=== PATIENT | male | born 1955 | race Caucasian/White ===

== ENCOUNTER 2018-02-03 16:20 | Inpatient (IN) | payer OTHER ==
--- NOTE | 2018-02-03 17:03 | ER ---
Nurse's Notes [facility] Name: Raphael oHyos Age: 62 yrs Sex: Male : 1955 Arrival Date: 02/03/2018 Time: 16:29 Bed 19 Private MD: Diagnosis: Pain in left knee;Weakness;Elevated white blood cell count;Dementia in other diseases classified elsewhere;Fall due to bumping against object;Repeated falls;Hypomagnesemia;Unspecified kidney failure Presentation: 02/03 16:41 Presenting complaint: EMS states: Per EMS called for chronic knee pain. When ask Pt why kb1 he is here states "because they asked me if I wanted to go to the hospital and I said yes" Pt states workers at his house called EMS. Transition of care: patient was not received from another setting of care. Onset of symptoms was February 03, 2018. Care prior to arrival: Glucose check: 150. 16:41 Method Of Arrival: EMS [facility] 16:41 Acuity: DANIELA 3 kb1 Triage Assessment: 16:44 General: Appears distressed, unkempt, Behavior is restless. Pain: Complains of pain in kb1 bilateral knees, states is chronic. Neuro: Level of Consciousness is awake, alert, obeys commands, Oriented to person, place, time, situation. Cardiovascular: Patient's skin is warm and dry. Respiratory: Airway is patent Respiratory effort is even, unlabored, Respiratory pattern is regular, symmetrical. GI: Abdomen is round. : No signs and/or symptoms were reported regarding the genitourinary system. Historical: - Allergies: 16:44 No Known Allergies; [facility] - Home Meds: 16:44 None [Active]; 1 - PMHx: 16:44 Hypertension; TIA; [facility] - PSHx: 16:44 None; kb1 - Immunization history:: Pneumococcal vaccine is not up to date, Flu vaccine is not up to date. - Social history:: Smoking status: Patient uses tobacco products, smokes one-half pack cigarettes per day. Screenin:47 Abuse screen: Denies threats or abuse. Nutritional screening: No deficits noted. kb1 Tuberculosis screening: No symptoms or risk factors identified. Fall Risk Fall in past 12 months (25 points). Assessment: 16:47 Reassessment: No changes from previously documented assessment. see triage assessment. kb1 16:55 Reassessment: Per Sabas POWER Pt refusing X-Rays, blood work. Pt does not want any test reilly ran. 17:10 Reassessment: Charge nurse Gabriella attempting to find transportation for Pt. Pt denies reilly having any family or friends that can pick him up. 18:30 Reassessment: Attempted to place Pt in wheelchair to D/C home. Pt unable to stand on kb1 own, became weak, assisted to sit on floor. Pt unable to stand back up on own. Assisted by four staff members to sit in wheelchair. Pt insist that he can go home and get self into house. Discussed condition with charge nurse. 18:40 Reassessment: Pt sitting in wheelchair in room, NAD, Gabriella charge nurse attempting to [facility] find transportation. 19:00 Reassessment: after multiple attempts to find transportation home, Dr. Rick fox1 notified of Pt condition and situation. Will admit to hospital. 20:19 Reassessment: Sitting in wheelchair, NAD. kb 21:18 Reassessment: Patient appears in no apparent distress at this time. Sitting in [facility] wheelchair. 22:24 Reassessment: Patient appears in no apparent distress at this time. Patient and/or kb1 family updated on plan of care and expected duration. Pain level reassessed. Patient is alert, oriented x 3, equal unlabored respirations, skin warm/dry/pink. Assisted Pt back to bed. 23:12 Reassessment: Patient appears in no apparent distress at this time. Patient and/or kb1 family updated on plan of care and expected duration. Pain level reassessed. resting comfortably. 02/04 00:30 Reassessment: Patient appears in no apparent distress at this time. Patient and/or kb1 family updated on plan of care and expected duration. Pain level reassessed. Patient is alert, oriented x 3, equal unlabored respirations, skin warm/dry/pink. 02:12 Reassessment: Awaiting CT results prior to transportation to floor per Dr. Cabrera. kb1 Vital Signs: 02/03 16:44 BP 146 / 80; Pulse 113; Resp 18; Temp 98.9; Pulse Ox 97% ; Weight 100.24 kg; Height 5 kb1 ft. 10 in. (177.80 cm); Pain 8/10; 20:38 BP 98 / 55; Pulse 98; Resp 20; Pulse Ox 97% ; kb1 21:19 BP 103 / 87; Pulse 89; Resp 22; Pulse Ox 97% ; kb1 22:24 BP 117 / 79; Pulse 81; Resp 20; Pulse Ox 97% ; kb1 23:12 BP 119 / 70; Pulse 80; Resp 18; Pulse Ox 98% ; kb1 02/04 02:47 BP 120 / 76; Pulse 84; Resp 20; Pulse Ox 96% ; kb1 02/03 16:44 Body Mass Index 31.71 (100.24 kg, 177.80 cm) kb1 ED Course: 02/03 16:29 Patient arrived in ED. ss 16:32 Sabas Burris, JANNET is PHCP. pm1 16:32 Oc Celeste MD is Attending Physician. pm1 16:40 Mildred Ruvalcaba, RADHAMES is Primary Nurse. kb1 16:43 Triage completed. kb1 16:44 Arm band placed on left wrist. kb1 16:47 Patient has correct armband on for positive identification. Placed in gown. Bed in low kb1 position. Call light in reach. Side rails up X2. Pulse ox on. NIBP on. 16:47 No provider procedures requiring assistance completed. kb1 22:48 Attending Physician role handed off by Oc Celeste MD federico 22:48 Ruiz Cabrera MD is Attending Physician. federico 22:49 Fish Carey MD is Hospitalizing Provider. federico 23:13 Inserted saline lock: 20 gauge in right forearm, using aseptic technique. Blood kb1 collected. 02/04 00:23 X-ray completed. Portable x-ray completed in exam room. Patient tolerated procedure kw well. 00:59 First set of blood cultures drawn by me, Second set of blood cultures drawn by me. kb1 Wang cath inserted, using sterile technique, 16 Fr., by me, balloon inflated, to gravity drainage, urine specimen collected. 01:53 Patient admitted, IV remains in place. kb1 02:14 EKG done, by ED staff, reviewed by Ruiz Cabrera MD. kb1 Administered Medications: 00:56 Not Given (Duplicate Order): NS 0.9% 1000 ml IV at 125 ml/hr continuous kb1 00:56 Drug: NS 0.9% 1000 ml Route: IV; Rate: 1 bolus; Site: right forearm; kb1 01:28 Follow up: IV Status: Completed infusion kb1 01:00 Drug: Cefepime 2 grams Route: IVPB; Rate: 200 ml/hr; Infused Over: 30 mins; Site: right kb1 forearm; 01:52 Follow up: IV Status: Completed infusion kb1 01:51 Drug: Magnesium Sulfate 1 grams Route: IVPB; Infused Over: 1 hrs; Site: right forearm; kb1 02:45 Follow up: IV Status: Completed infusion 1 01:52 Drug: NS 0.9% 1000 ml Route: IV; Rate: 125 ml/hr; Site: right forearm; kb1 01:52 Drug: vancoMYCIN 1 grams Route: IVPB; Infused Over: 2 hrs; Site: right forearm; [facility] Outcome: 02/03 17:02 Discharge ordered by . pm1 22:50 Decision to Hospitalize by Provider. federico 02/04 01:50 Admitted to Tele accompanied by tech, via stretcher, room 229, Report called to reilly Vee RN 01:50 Condition: stable [facility] 01:50 Instructed on the need for admit. 03:23 Patient left the ED. aa1 Signatures: Patricia Hearn RN RN aa1 Ruiz Cabrera MD MD cha Smirch, Shelby, RN RN ss Whitley, Kimberlee kw Marinas, Patrick, JANNET MANAGER GENERAL pm1 Mildred Ruvalcaba RN RN 1
--- NOTE | 2018-02-03 17:03 | EDPHYS ---
Physician Documentation [facility] Name: Raphael Hoyos Age: 62 yrs Sex: Male : 1955 Arrival Date: 02/03/2018 Time: 16:29 Bed 19 Private MD: ED Physician Ruiz Cabrera HPI: 02/03 17:00 This 62 yrs old Male presents to ER via EMS with complaints of Bilateral Knee pm1 Pain. 17:00 The patient presents with pain, that is chronic. The complaints affect the right and pm1 left knee. Context: The problem was sustained at home, resulted from an unknown cause, Uses electric scooter. Onset: The symptoms/episode began/occurred Multiple years ago. Modifying factors: The symptoms are alleviated by OTC meds, tylenol. the symptoms are aggravated by nothing. Associated signs and symptoms: Pertinent negatives calf tenderness, fever, nausea, numbness, swelling, tingling, vomiting. Treatment prior to arrival includes: no previous treatment. Severity of symptoms: in the emergency department the symptoms are unchanged. The patient has experienced similar episodes in the past, chronically. The patient has not recently seen a physician. Patient was brought to there ER by EMS for complaint of chronic bilateral knee pain. Historical: - Allergies: 16:44 No Known Allergies; kb1 - Home Meds: 16:44 None [Active]; kb1 - PMHx: 16:44 Hypertension; TIA; kb1 - PSHx: 16:44 None; kb1 - Immunization history:: Pneumococcal vaccine is not up to date, Flu vaccine is not up to date. - Social history:: Smoking status: Patient uses tobacco products, smokes one-half pack cigarettes per day. ROS: 17:00 Constitutional: Negative for fever, chills, and weight loss, Eyes: Negative for injury, pm1 pain, redness, and discharge, ENT: Negative for injury, pain, and discharge, Neck: Negative for injury, pain, and swelling, Cardiovascular: Negative for chest pain, palpitations, and edema, Respiratory: Negative for shortness of breath, cough, wheezing, and pleuritic chest pain, Abdomen/GI: Negative for abdominal pain, nausea, vomiting, diarrhea, and constipation, Back: Negative for injury and pain, : Negative for injury, bleeding, discharge, and swelling. 17:00 Skin: Negative for injury, rash, and discoloration, Neuro: Negative for headache, weakness, numbness, tingling, and seizure. 17:00 MS/extremity: Positive for pain, of the right and left knee. Exam: 17:00 Head/Face: Normocephalic, atraumatic. Neck: Trachea midline, no thyromegaly or masses pm1 palpated, and no cervical lymphadenopathy. Supple, full range of motion without nuchal rigidity, or vertebral point tenderness. No Meningismus. Chest/axilla: Normal chest wall appearance and motion. Nontender with no deformity. No lesions are appreciated. Cardiovascular: Regular rate and rhythm with a normal S1 and S2. No gallops, murmurs, or rubs. Normal PMI, no JVD. No pulse deficits. Respiratory: Lungs have equal breath sounds bilaterally, clear to auscultation and percussion. No rales, rhonchi or wheezes noted. No increased work of breathing, no retractions or nasal flaring. Abdomen/GI: Soft, non-tender, with normal bowel sounds. No distension or tympany. No guarding or rebound. No evidence of tenderness throughout. Back: No spinal tenderness. No costovertebral tenderness. Full range of motion. Skin: Warm, dry with normal turgor. Normal color with no rashes, no lesions, and no evidence of cellulitis. 17:00 Constitutional: The patient appears in no acute distress, alert, awake, comfortable, non-diaphoretic, non-toxic, well developed, well hydrated, unkempt. 17:00 Musculoskeletal/extremity: Extremities: grossly normal except: noted in the right knee: pain, tenderness, noted in the left knee: pain, tenderness, Circulation is intact in all extremities. Pulses: noted to be 2+ in the right dorsalis pedis artery and left dorsalis pedis artery, Calf tenderness, is absent, bilaterally, Sensation intact. Vital Signs: 16:44 BP 146 / 80; Pulse 113; Resp 18; Temp 98.9; Pulse Ox 97% ; Weight 100.24 kg; Height 5 kb1 ft. 10 in. (177.80 cm); Pain 8/10; 20:38 BP 98 / 55; Pulse 98; Resp 20; Pulse Ox 97% ; kb1 21:19 BP 103 / 87; Pulse 89; Resp 22; Pulse Ox 97% ; kb1 22:24 BP 117 / 79; Pulse 81; Resp 20; Pulse Ox 97% ; [facility] 23:12 BP 119 / 70; Pulse 80; Resp 18; Pulse Ox 98% ; [facility] 02/04 02:47 BP 120 / 76; Pulse 84; Resp 20; Pulse Ox 96% ; [facility] 02/03 16:44 Body Mass Index 31.71 (100.24 kg, 177.80 cm) [facility] MDM: 02/03 16:52 Patient medically screened. pm1 17:00 Data reviewed: vital signs. Data interpreted: Pulse oximetry: on room air is 97 %. pm1 Interpretation: normal. Counseling: I had a detailed discussion with the patient and/or guardian regarding: the historical points, exam findings, and any diagnostic results supporting the discharge/admit diagnosis, the need for outpatient follow up, to return to the emergency department if symptoms worsen or persist or if there are any questions or concerns that arise at home. 17:00 Refusal of service: The patient/guardian displays adequate decision making capability pm1 and despite a detailed discussion of alternatives, benefits, risks, and consequences refuses: all X-rays, pain medications stronger that over the counter medications. Patient just wants to take Tylenol at home. Patient does not want X-rays. He just wants to go home. 02/03 22:48 Order name: CBC with Diff [facility] 02/03 22:48 Order name: Comprehensive Metabolic Panel [facility] 02/03 22:49 Order name: CBC with Automated Diff; Complete Time: 01:27 EDND 02/03 22:49 Order name: Comprehensive Metabolic Panel; Complete Time: 23:42 EDND 02/03 23:45 Order name: Basic Metabolic Panel 02/03 23:45 Order name: BNP [facility] 02/03 23:45 Order name: Ckmb [facility] 02/03 23:45 Order name: CPK [facility] 02/03 23:45 Order name: LFT's 02/03 23:45 Order name: Magnesium [facility] 02/03 23:45 Order name: PT-INR [facility] 02/03 23:45 Order name: Ptt, Activated [facility] 02/03 23:45 Order name: Troponin (emerg Dept Use Only) 02/03 23:45 Order name: Lipase 02/03 23:45 Order name: Blood Culture Adult (2) [facility] 02/03 23:45 Order name: Procalcitonin [facility] 02/03 23:45 Order name: Lactate [facility] 02/03 23:45 Order name: Urine Culture [facility] 02/04 00:36 Order name: Protime (+INR); Complete Time: 01: [facility] 02/04 00:36 Order name: PTT, Activated Partial Thromb; Complete Time: 01: [facility] 02/04 00:47 Order name: Manual Differential; Complete Time: 01: [facility] 02/04 01:11 Order name: Lactate; Complete Time: : [facility] 02/04 01:13 Order name: Troponin (Emerg Dept Use Only); Complete Time: : [facility] 02/04 01:15 Order name: Lipase; Complete Time: : [facility] 02/04 01:19 Order name: Creatine Phosphokinase; Complete Time: : [facility] 02/04 01:19 Order name: CKMB Creatine Kinase MB; Complete Time: : [facility] 02/04 01:19 Order name: Magnesium; Complete Time: : [facility] 02/04 01:19 Order name: BNP B-Type Natriuretic Peptide; Complete Time: : [facility] 02/04 01:49 Order name: Procalcitonin [facility] 02/04 01:52 Order name: Urine Dipstick--Ancillary (enter results) [facility] 02/03 22:54 Order name: Social Service Consult [facility] 02/03 23:45 Order name: XRAY Chest (1 view) [facility] 02/03 23:45 Order name: EKG; Complete Time: 00:27 [facility] 02/03 23:45 Order name: Cardiac monitoring; Complete Time: 02:13 [facility] 02/03 23:45 Order name: EKG - Nurse/Tech; Complete Time: 02:13 [facility] 02/03 23:45 Order name: IV Saline Lock; Complete Time: 00:57 [facility] 02/03 23:45 Order name: Labs collected and sent; Complete Time: 00:57 [facility] 02/03 23:45 Order name: O2 Per Protocol; Complete Time: 00:57 [facility] 02/03 23:45 Order name: O2 Sat Monitoring; Complete Time: 00:57 [facility] 02/03 23:45 Order name: Urine Dipstick-Ancillary (obtain specimen); Complete Time: 02:46 [facility] 02/03 23:45 Order name: Wang; Complete Time: 00:57 [facility] 02/03 23:45 Order name: CT Traumagram (Head C Spine CAP wo con) [facility] 02/04 01:59 Order name: Urine Dipstick-Ancillary EDMS Administered Medications: 02/04 00:56 Not Given (Duplicate Order): NS 0.9% 1000 ml IV at 125 ml/hr continuous kb1 00:56 Drug: NS 0.9% 1000 ml Route: IV; Rate: 1 bolus; Site: right forearm; kb1 01:28 Follow up: IV Status: Completed infusion kb1 01:00 Drug: Cefepime 2 grams Route: IVPB; Rate: 200 ml/hr; Infused Over: 30 mins; Site: right kb1 forearm; 01:52 Follow up: IV Status: Completed infusion kb1 01:51 Drug: Magnesium Sulfate 1 grams Route: IVPB; Infused Over: 1 hrs; Site: right forearm; kb1 02:45 Follow up: IV Status: Completed infusion kb1 01:52 Drug: NS 0.9% 1000 ml Route: IV; Rate: 125 ml/hr; Site: right forearm; kb1 01:52 Drug: vancoMYCIN 1 grams Route: IVPB; Infused Over: 2 hrs; Site: right forearm; kb1 Disposition: 09:10 Co-signature as Attending Physician, Ruiz Cabrera MD I agree with the assessment and [facility] plan of care. Disposition: 02/03/18 22:50 Hospitalization ordered by Fish Carey for Observation. Preliminary diagnosis are Pain in left knee, Weakness, Elevated white blood cell count, Dementia in other diseases classified elsewhere, Fall due to bumping against object, Repeated falls, Hypomagnesemia, Unspecified kidney failure. - Bed requested for Telemetry/MedSurg (observation). - Status is Observation. aa1 - Condition is Stable. - Problem is new. - Symptoms have improved. UTI on Admission? No Signatures: Dispatcher [employer] EDMS Flori Sheehan RN RN mw Kern, Alissa, RN RN aa1 Ruiz Cabrera MD MD cha Marinas, Patrick, ADMINISTRATIVE TECHNICIAN ADMINISTRATIVE TECHNICIAN pm1 Mildred Ruvalcaba RN RN kb1
[2018-02-03 23:17] LABS: Absolute Lymphocytes (CBC) 1.3 K/uL (0.7-4.9); Absolute Monocytes 1.9 K/uL (0.1-1.3); Absolute Neutrophil 23.8 K/uL (1.8-8.0); Basophils % 0.6 % (0-1.3); Hematocrit 35.3 % (39.6-49.0); Lymphocytes % 4.6 % (15.3-44.8); MCH 29.4 pg (27.0-35.0); MCV 86.8 fL (80-100); MPV 6.8 fL (7.6-11.3); Monocytes % 6.9 % (3.3-12.3); RBC Red Blood Cell Count 4.07 M/uL (4.33-5.43)
[2018-02-03 23:27] LABS: Potassium 3.9 mEq/L (3.6-5.0)
[2018-02-03 23:30] LABS: Albumin 3.8 g/dL (3.2-5.5); Bilirubin Total 1.8 mg/dL (0.3-1.2); Protein, Total 8.2 g/dL (6.0-8.3)
[2018-02-04] MEDS ORDERED: ACETAMINOPHEN 500 MG TAB PO PRN (00:06)
[2018-02-04] MEDS ORDERED: ONDANSETRON 4 MG/2 ML VIAL IV PRN (00:06)
[2018-02-04] MEDS ORDERED: VANCOMYCIN/NS 1 gm 1 GM/250 ML BAG ONE (00:09)
[2018-02-04] MEDS ORDERED: NA CHLORIDE 0.9% 100 ML IV ONE (00:09)
[2018-02-04] MEDS ORDERED: NA CHLORIDE 0.9% 1,000 ML ONE ×2 (00:09→01:30)
[2018-02-04] MEDS ORDERED: CEFEPIME 2 GM VIAL ONE (00:09)
[2018-02-04 00:36] LABS: Protime INR 1.27
[2018-02-04 00:46] LABS: Blood Morphology Comment NOT SEEN (NOT SEEN); Platelet Estimate ADEQ
[2018-02-04] MEDS: NA CHLORIDE 0.9% 1,000 ML IV SCH ×3 (01:00→20:27)
[2018-02-04 01:18] LABS: CKMB Creatine Kinase MB 2.2 ng/ml (0.3-4.0); Magnesium 1.5 mg/dL (1.8-2.5)
--- NOTE | 2018-02-04 01:28 | P.HP ---
Certification for Inpatient Patient admitted to: Inpatient With expected LOS: >2 Midnights Patient will require the following post-hospital care: None Practitioner: I am a practitioner with admitting privileges, knowledge of patient current condition, hospital course, and medical plan of care. Services: Services provided to patient in accordance with Admission requirements found in Title 42 Section 412.3 of the Code of Federal Regulations Patient History Date of Service: 02/03/18 Reason for admission: Altered mental status/severe leukocytosis/acute kidney injury History of Present Illness: Patient is a 62-year-old gentleman who was brought into the hospital after EMS was called by his office machine servicer. Patient has not been acting like himself. His ended up in a hospital where she is apparently not do weaned well. Patient has a office machine servicer taking care of him. It is initially documented that he came into the hospital because of bilateral knee pain. EMS brought him into the emergency room and initially he was going to be discharged. However, during the course of his hospital stay he became lethargic and confused. At that time lab workup and diagnostic studies were performed. His initial white count came back at 27,000. He was found have acute kidney injury. Chest x-ray and CT scan are pending. Patient is lethargic and not really answering any of my questions. As long as a CT scan does not show any worrisome findings he should be admitted to the hospital for inpatient workup. Allergies No Known Allergies Allergy (Unverified 02/25/17 22:17) - Past Medical/Surgical History Past Medical History: Unable to obtain Past Surgical History: Unable to obtain - Family History Father Family History: Reviewed- Non-Contributory - Social History Smoking Status: Unknown if ever smoked Alcohol use: No CD- Drugs: No Review of Systems is unable to be obtained Physical Examination - Vital Signs Temperature: 99 F Blood Pressure: 120/70 Pulse: 82 Respirations: 18 Pulse Ox (%): 95 - Physical Exam General: Confused, Other (Patient is lethargic ) HEENT: Atraumatic, Normocephalic Neck: Supple, 2+ carotid pulse no bruit, JVD not distended Respiratory: Clear to auscultation bilaterally, Normal air movement Cardiovascular: Regular rate/rhythm, Normal S1 S2, Systolic murmur (3/6) Gastrointestinal: Normal bowel sounds, Soft and benign, Non-distended, No rebound, No guarding Musculoskeletal: No clubbing, No swelling Neurological: Abnormal gait, Abnormal speech, Abnormal strength Assessment & Plan - Problems (Diagnosis) (1) Altered mental status Current Visit: Yes Status: Acute (2) Bilateral knee pain Current Visit: Yes Status: Acute (3) Leukocytosis Current Visit: Yes Status: Acute (4) Acute kidney injury Current Visit: Yes Status: Acute (5) Hypomagnesemia Current Visit: Yes Status: Acute (6) Hyponatremia Current Visit: Yes Status: Acute - Plan Plan: 1. IV hydration 2. IV antibiotics 3. Monitor neuro status closely 4. UA with microscopy 5. CT of the head pending 6. Chest x-ray pending 7. Speech therapy and physical therapy evaluation 8. Neurology consultation 9. GI and DVT prophylaxis Discharge Plan: Home Plan to discharge in: Greater than 2 days - Advance Directives Does patient have a Living Will: No Does patient have a Durable POA for Healthcare: No - Code Status/Comfort Care Code Status Assessed: Yes Code Status: Full Code Critical Care: No Time Spent Managing PTS Care (In Minutes): 55
[2018-02-04] MEDS ORDERED: MAGNESIUM SULFATE 1 gm IVPB 1 GM/100 ML BAG IV ONE ×2 (01:33→09:00)
[2018-02-04 01:59] LABS: Urine Blood TRACE (NEG); Urine Glucose NEGATIVE (NEG); Urine Protein 3+ (NEG); Urine Specific Gravity 1.025 (1.005-1.030); Urine pH 5.5 (5.0-7.0)
[2018-02-04 03:59] VITALS: BMI 31.7
[2018-02-04 04:34] LABS: Urine Appearance CLEAR; Urine Bilirubin NEGATIVE (NEG); Urine Blood 2+ (NEG); Urine Color YELLOW; Urine Glucose NEGATIVE (NEG); Urine Protein 2+ (NEG); Urine Urobilinogen 0.2 mg/dL (0.2-1.0)
[2018-02-04 04:52] LABS: Urine Bacteria <20 /HPF (NONE SEEN); Urine Culture Reflex Order NOT NEEDED; Urine RBC 20-50 /HPF (NONE SEEN)
[2018-02-04 05:53] LABS: Absolute Lymphocytes (CBC) 1.4 K/uL (0.7-4.9); Absolute Monocytes 1.7 K/uL (0.1-1.3); Basophils % 0.9 % (0-1.3); Eosinophils % 0.1 % (0-4.4); Hematocrit 31.4 % (39.6-49.0); Lymphocytes % 7.1 % (15.3-44.8); MCH 29.9 pg (27.0-35.0); MCV 86.9 fL (80-100); MPV 6.9 fL (7.6-11.3); Monocytes % 8.4 % (3.3-12.3); RBC Red Blood Cell Count 3.61 M/uL (4.33-5.43)
[2018-02-04 05:56] LABS: Protime INR 1.28
--- NOTE | 2018-02-04 07:00 | EKG ---
Test Date: 2018-02-04 Test Time: 01:37:36 Grant Administrator: MARCIE MEASUREMENT RESULTS: Intervals: Rate: 80 [place]: 158 QRSD: 86 QT: 388 QTc: 447 [place]: P: 110 [place]: 158 QRS: 140 T: 151 INTERPRETIVE STATEMENTS: Suspect arm lead reversal, interpretation assumes no reversal Normal sinus rhythm Right axis deviation ST & T wave abnormality, consider lateral ischemia Abnormal ECG No previous ECG available for comparison Electronically Signed On 02-04-18 07:00:37 CDT by Aneesh Flores
[2018-02-04 07:16] LABS: Albumin 3.3 g/dL (3.2-5.5); Bilirubin Total 1.7 mg/dL (0.3-1.2); Magnesium 1.7 mg/dL (1.8-2.5); Phosphorus 3.5 mg/dL (2.5-4.3); Potassium 3.7 mEq/L (3.6-5.0); Protein, Total 6.9 g/dL (6.0-8.3); Thyroid Stimulating Hormone 0.79 uIU/mL (0.34-5.60)
[2018-02-04] MEDS ORDERED: IPRATROPIUM BROM 0.5MG/2.5ML NEB PRN (08:02)
[2018-02-04] MEDS ORDERED: ALBUTEROL 2.5 MG/3 ML NEB SOL NEB PRN (08:02)
[2018-02-04] MEDS ORDERED: KCL 20 MEQ/100 mL IVPB 20 MEQ/100 ML BAG IV SCH (09:00)
[2018-02-04] MEDS ORDERED: CEFTRIAXONE 1 GM/NS 50 ML 1 GM/50 ML BAG IV SCH (09:00)
[2018-02-04] MEDS: CEFTRIAXONE/SWI 1gm 1 GM/10 ML SYR IV SCH (09:05)
[2018-02-04 09:27] LABS: A1c Component 0.38 mg/dL; Hemoglobin A1c 5.1 % (4-6.0)
--- NOTE | 2018-02-04 09:59 | P.PN ---
Subjective Date of Service: 02/04/18 Primary Care Provider: None Chief Complaint: Altered mental status/severe leukocytosis/acute kidney injury Subjective: Other (Patient had confusion upon admission. Patient alert and oriented at this time. Patient reports that he been complain of fatigue. Patient reports that he is not taking any medication. He has not seen a doctor in a long time.) Physical Examination - Vital Signs Temperature: 98.9 F Blood Pressure: 114/61 Pulse: 75 Respirations: 18 Pulse Ox (%): 98 - Physical Exam General: Alert, In no apparent distress, Cooperative HEENT: Atraumatic Neck: Supple Respiratory: Clear to auscultation bilaterally, Normal air movement Cardiovascular: Normal pulses, Regular rate/rhythm Gastrointestinal: Normal bowel sounds, Soft and benign, Non-distended, No masses , No rebound, No guarding Musculoskeletal: No erythema, No tenderness, No warmth Integumentary: No erythema, No warmth, No cyanosis Neurological: Normal speech, Normal strength at 5/5 x4 extr, Normal tone, Normal affect Urinary: Wang catheter - Studies Medications List Reviewed: Yes Assessment & Plan - Problems (Diagnosis) (1) Encephalopathy Current Visit: Yes Status: Acute Plan: Likely multifactorial-toxic versus metabolic. Suspect UTI. Patient on antibiotic therapy. Await urine and blood cultures. Patient had CT scan-head, abdomen, chest. Await results. Will need to assess for possible CVA. MRI stroke protocol pending. Will also check carotid Doppler and echo. Blood pressure stable this time. Will have physical therapy and occupational therapy assess. Neurology consulted. Neurology has ordered EEG. Patient clinically stable this time. No complaints noted. Patient seems appropriate. Patient may require skilled placement. Will consult forensic social worker. Will continue to reassess. Await CT scan results. (2) Dehydration Current Visit: Yes Status: Acute Plan: Continue with IV fluids. Patient with acute renal injury. Will check renal ultrasound. (3) UTI (urinary tract infection) Current Visit: Yes Status: Suspected Plan: Patient started on IV antibiotic therapy. Urine and blood cultures obtained. Will continue with IV fluids. Qualifiers: Urinary tract infection type: site unspecified Hematuria presence: without hematuria Qualified Code(s): N39.0 - Urinary tract infection, site not specified (4) Acute kidney injury Current Visit: Yes Status: Acute Plan: This is likely from dehydration. Will continue with IV fluids. Will monitor closely. Will check renal ultrasound to evaluate for chronic renal disease. (5) Altered mental status Current Visit: Yes Status: Acute Plan: Patient came in with confusion. Patient appears to be at his baseline level. He is appropriate now. Will continue to monitor closely. Await CT findings. Will evaluate for CVA. Will check MRI with stroke protocol, echo cardiogram and carotid Doppler. Neurology also consulted. Neurology has order EEG. Await findings and recommendations. Qualifiers: Altered mental status type: unspecified Qualified Code(s): R41.82 - Altered mental status, unspecified (6) Bilateral knee pain Current Visit: Yes Status: Acute Plan: Patient apparently came in with bilateral knee pain. Patient without pain at this time. Will have physical therapy assess ambulation. Qualifiers: Chronicity: acute Qualified Code(s): M25.561 - Pain in right knee; M25.562 - Pain in left knee; M25.562 - Pain in left knee (7) Hypomagnesemia Current Visit: Yes Status: Acute Plan: Continue monitor and replace appropriately. Replacement protocol in place. (8) Hyponatremia Current Visit: Yes Status: Acute Plan: Will continue with IV fluids. This is likely from volume depletion. (9) Leukocytosis Current Visit: Yes Status: Acute Plan: Etiology likely UTI related. Will monitor closely. Blood cultures and urine cultures obtained. Await CT scan results. (10) BPH (benign prostatic hyperplasia) Current Visit: Yes Status: Suspected Plan: Patient reports problems with urination and poor stream. PSA unremarkable. Will start medication. Patient will need to follow up with urology as an outpatient. Qualifiers: Lower urinary tract symptom presence: symptoms present Lower urinary tract symptom detail: straining on urination Qualified Code(s): N40.1 - Benign prostatic hyperplasia with lower urinary tract symptoms; R39.16 - Straining to void; R39.16 - Straining to void Discharge Plan: Other (Skilled placement) Plan to discharge in: 48 Hours Time Spent Managing Pts Care (In Minutes): 55
--- NOTE | 2018-02-04 10:13 | RAD REPORT ---
EXAM DESCRIPTION: Hoa Single View02/04/2018 12:24 am CLINICAL HISTORY: Chest pain COMPARISON: none FINDINGS: The lungs appear clear of acute infiltrate. The heart is mildly enlarged. Aorta is tortuo us IMPRESSION: No acute abnormalities displayed
--- NOTE | 2018-02-04 11:05 | RAD REPORT ---
EXAM DESCRIPTION: CT - Head C Spine Cap Wo Con - 02/04/2018 6:46 am CLINICAL HISTORY: Head and neck injury with chest and abdominal pain status post fall. COMPARISON: None. TECHNIQUE: Computed axial tomography of the head, cervical spine, chest, abdomen and pelvis was obta ined with coronal and sagittal reconstruction. Contrast was not requested. The preliminary report was given by virtual radiologic and entered prior to this dictation. FINDINGS: The evaluation of mediastinum, vessels, cynthia, solid organs and bowel is limited secondary to lack of contrast administration. A 15 mm low-density area is present within the right basal ganglia. A 5 mm low-density area is presen t within the left thalamus. Mild low-density areas within periventricular and deep white matter likel y represent ischemic changes secondary to small vessel disease. An intracranial bleed is not seen. An extra-axial fluid collection is not noted. The ventricles are normal caliber. Left mastoids are opacified. A 7 millimeter metallic structure is present within the frontal scalp to the right of midline. A cervical fracture is not seen. No dislocation is noted. Spondylosis involves the mid and distal cervical spine. There is marked central spinal stenosis at C5 -C6. This results in marked right foraminal stenosis at C5-C6 and C6-C7. Moderate left foraminal sten osis is present at these levels. A mediastinal hematoma is not seen. A pleural effusion is not present. A pericardial effusion is not noted. A pulmonary contusion is not seen. The liver, spleen, pancreas, adrenals, kidneys and bladder appear grossly normal. A Wang catheter is present within the bladder. The appendix is normal. There is no evidence of diverticulitis. No ascites is seen. IMPRESSION: 1. A 15 mm low-density area within the right basal ganglia compatible with an infarction. I suspect t hat it is acute/subacute although the age is indeterminate. 2. A 5 mm low-density area within the left thalamus consistent with an additional infarct. This proba latasha is old. 3. MRI is recommended for further evaluation. 4. A cervical fracture is not seen. There is marked spondylosis resulting in marked spinal stenosis a t C5-C6 resulting in cord compression as well as marked right foraminal stenosis C5-C6 and C6-C7. 5. No traumatic injury is seen involving the chest, abdomen nor pelvis.
--- NOTE | 2018-02-04 13:30 | RAD REPORT ---
EXAM DESCRIPTION: MRI - Stroke Protocol - 02/04/2018 12:51 pm CLINICAL HISTORY: Altered mental status, suspected CVA COMPARISON: CT study February 04 TECHNIQUE: Sagittal T1- weighted images were obtained along with PD/heavily T2- weighted and T2-FLAI R images. Axial DWI and ADC mapping sequences were also obtained. Coronal heavily T2- weighted images were obtained. MRA head imaging performed with source images and 3D reconstruction images reviewed. MRA neck imaging was performed with source and 3D reconstruction imaging reviewed. Post contrast T1 i maging was performed. A 20 ml GD dosage was utilized. FINDINGS: The patient has metal in the scalp soft tissues overlying the frontal bone. This creates a substantial amount of metallic field artifact obscuring most of the frontal lobes and portions of th e anterior temporal lobes. No intracranial hemorrhage, mass or acute infarction identified within the visualized portions of the brain parenchyma. Patient does have some scattered chronic ischemic change. An old ischemic focus is seen along the right lateral margin of thalamus. There is no edema or shift of midline structures. N o extra-axial fluid collections. Bassett-matter/white matter junction is preserved. Signal voids are see n as a normal finding in the major intracranial vessels. Postcontrast images show no abnormal enhance ment. Mastoid air cells are clear. Globes and sinuses are obscured Limited MRA imaging shows no aneurysm or vascular malformation. The anterior cerebral arteries and mu ch of the [place] of [place] is obscured from view due to the metal artifact. No significant atheroscle rotic disease or vessel narrowing seen. MRA neck imaging shows 3 vessel aortic arch. Vertebral arteries are codominant. Vertebrobasilar tortu osity is present without stenosis. No dissection seen. The common carotid and internal carotid arteri es show no dissection, atherosclerotic change or suspicious finding. There is pronounced tortuosity i n the midportion of each internal carotid artery. IMPRESSION: Frontal lobes and anterior temporal lobes are obscured from view due to artifact created by the metal in the frontal scalp soft tissues. Imaged portions of the brain parenchyma shows scattered chronic ischemic change with no infarction or acute intracranial process. MRA imaging is limited due to the artifact. Imaged portions show no substantial atherosclerotic banerjee e. MRA neck imaging shows prominent tortuosity of the internal carotid arteries. Otherwise no dissection , stenosis or significant finding noted.
--- NOTE | 2018-02-04 13:31 | RAD REPORT ---
EXAM DESCRIPTION: RACQUEL Messina CP - 02/04/2018 1:19 pm CLINICAL HISTORY: Altered mental status, possible CVA COMPARISON: None. TECHNIQUE: Real-time sonographic evaluation of both carotid systems was performed. Doppler interroga tion was performed with waveform tracing bilaterally. FINDINGS: Normal high resistance waveforms are noted in both external carotid arteries. The common c arotid arteries and internal carotid arteries show normal low resistance waveforms. Minimal plaquing changes are present. No measurable luminal narrowing. Peak systolic and end diastoli c velocity values and the ICA/CCA ratios are in the non-hemodynamically significant range. Antegrade flow seen in both vertebral arteries. Velocity values and ratios were recorded and are retained in the patient's imaging records. IMPRESSION: Minimal carotid plaquing changes. No evidence of a hemodynamically significant stenosis.
--- NOTE | 2018-02-04 14:56 | RAD REPORT ---
EXAM DESCRIPTION: US - Renal Ultrasound-Complete - 02/04/2018 1:19 pm CLINICAL HISTORY: Acute renal injury, possible chronic renal disease COMPARISON: None. FINDINGS: The right kidney measures 12.3 x 5.7 x 6.2 cm. The left kidney measures 10.9 x 6.3 x 6.5 cm. Renal cortical thickness and echogenicity are normal. No hydronephrosis or suspicious renal mass. A small 15 millimeter cyst is present lower pole right kidney. IMPRESSION: No hydronephrosis or suspicious renal mass. Cortical echogenicity within normal limits. Small incidental cyst lower pole right kidney.
[2018-02-04] MEDS: ASPIRIN EC 81 MG TAB PO SCH (17:00)
[2018-02-04] MEDS: ENOXAPARIN 40 MG/0.4 ML SQ SCH (17:00)
[2018-02-04] MEDS: TRAMADOL HCL 50 MG TAB PO PRN ×2 (17:01→21:55)
[2018-02-04] MEDS: ARFORMOTEROL TARTRATE 15 MCG/2 ML VIAL.NEB NEB SCH (19:39)
[2018-02-04] MEDS: TAMSULOSIN 0.4 MG SR CAP PO SCH (20:27)
[2018-02-04] MEDS: ATORVASTATIN 40 MG TAB PO SCH (20:27)
[2018-02-04] MEDS ORDERED: VANCOMYCIN 1.25 GM in NA CHLORIDE 0.9% 500 ML IVPB ONE (21:52)
--- NOTE | 2018-02-04 21:55 | P.PN ---
Date of Service: 02/04/18 Preliminary blood cultures are positive for gram-positive cocci in chains and clusters. Will go ahead and give a dose of vancomycin x1 pending identification of Gram-positive organism.
[2018-02-04] MEDS ORDERED: VANCOMYCIN 1 GM/VIAL ONE (22:17)
[2018-02-04] MEDS ORDERED: VANCOMYCIN 500 MG/VIAL ONE (22:18)
[2018-02-04] MEDS ORDERED: NA CHLORIDE 0.9% 500 ML ONE (22:22)
[2018-02-05] MEDS: PANTOPRAZOLE 40MG TABLET PO SCH (05:10)
[2018-02-05 05:36] LABS: Absolute Lymphocytes (CBC) 1.3 K/uL (0.7-4.9); Absolute Monocytes 1.1 K/uL (0.1-1.3); Absolute Neutrophil 6.2 K/uL (1.8-8.0); Basophils % 0.6 % (0-1.3); Eosinophils % 1.3 % (0-4.4); Hematocrit 27.3 % (39.6-49.0); Lymphocytes % 15.2 % (15.3-44.8); MCV 86.4 fL (80-100); MPV 7.2 fL (7.6-11.3); Monocytes % 12.2 % (3.3-12.3); RBC Red Blood Cell Count 3.16 M/uL (4.33-5.43)
[2018-02-05 05:43] LABS: Albumin 2.9 g/dL (3.2-5.5); Bilirubin Total 1.3 mg/dL (0.3-1.2); Magnesium 1.8 mg/dL (1.8-2.5); Potassium 3.9 mEq/L (3.6-5.0); Protein, Total 6.3 g/dL (6.0-8.3)
[2018-02-05] MEDS ORDERED: MAGNESIUM SULFATE 1 gm IVPB 1 GM/100 ML BAG IV ONE (05:48)
[2018-02-05] MEDS: NA CHLORIDE 0.9% 1,000 ML IV SCH ×3 (07:00→23:50)
[2018-02-05] MEDS: ARFORMOTEROL TARTRATE 15 MCG/2 ML VIAL.NEB NEB SCH ×2 (07:51→19:54)
--- NOTE | 2018-02-05 07:56 | RAD REPORT ---
EXAM DESCRIPTION: MRI - C Spine Wo Cont - 02/04/2018 10:52 pm CLINICAL HISTORY: Spinal stenosis, bilateral leg pain and weakness, spastic leg movements, history o f fall and CVA COMPARISON: None. TECHNIQUE: Sagittal T1-weighted, T2-weighted and T2-STIR sequences were obtained as well as T2 medic sequence. FINDINGS: Cervical vertebral bodies are normal in height and alignment. Scattered marrow degenerativ e changes are present. These are most notable in C6. No worrisome or aggressive vertebral body proces s. No paraspinal mass. Cerebellar tonsils and mid-line skull base show no suspicious finding. No significant finding at the C1 and C2 levels. C2-3 level: Disc is desiccated with a mild broad-based bulging of disc material. Anterior subarachnoi d space is attenuated. Slight flattening of the anterior cord. Midline canal diameter is 7.5 mm. Mild bilateral bony foraminal encroachment seen. C3-4 level: Disc is desiccated. Prominent bulging of disc material is seen along with endplate spurri ng. Cord is flattened. Canal is 6 mm. Significant uncovertebral hypertrophy causes advanced bilateral foraminal stenosis. C4-5 level: Prominent bulging of disc material and spurring changes are present across the central ca nal and into each exit foramen. Advanced bilateral foraminal stenosis present. Central canal is 7 mm. Cord is flattened. C5-6 level: Disc is desiccated with loss in disc height. Patient has a very pronounced protruding dis c material along with endplate spurring. Central canal is 4 mm. The cord is very difficult to even de fined given this degree of stenosis. Patient has very pronounced bony foraminal stenosis at the origi n of each foramen. C6-7 level: Disc is desiccated with broad-based bulging of disc material. Cord is flattened. Central spinal stenosis to 5-6 mm noted. This level shows motion degradation. Again, there is very significan t bony foraminal encroachment. C7-T1 level: Disc bulge is present comparatively mild. No direct contact of the cord. Canal is 9 mm. Very extensive signal abnormality within the cord from C3 -C7. IMPRESSION: Severe multilevel cervical spondylosis changes are present. There is extensive myelomala des from C3-C7. Critical spinal stenosis is present down to 4 mm at C5-6. Significant spinal stenosis elsewhere with 6-7 millimeter canal diameter. Disc bulge and uncovertebral joint hypertrophy causes very substantial bilateral foraminal stenosis f rom C3-4 through C6-7.
[2018-02-05] MEDS ORDERED: POTASSIUM CL SA 10 MEQ TAB PO ONE (09:00)
[2018-02-05] MEDS: ASPIRIN EC 81 MG TAB PO SCH (10:06)
[2018-02-05] MEDS: CEFTRIAXONE/SWI 1gm 1 GM/10 ML SYR IV SCH (10:07)
[2018-02-05] MEDS: ENOXAPARIN 40 MG/0.4 ML SQ SCH (10:07)
--- NOTE | 2018-02-05 13:06 | P.PN ---
Subjective Date of Service: 02/05/18 Primary Care Provider: None Chief Complaint: Altered mental status/severe leukocytosis/acute kidney injury Subjective: Improving (Patient feeling better. Patient less lethargic) Physical Examination - Vital Signs Temperature: 98.2 F Blood Pressure: 188/85 Pulse: 70 Respirations: 18 Pulse Ox (%): 93 - Physical Exam General: Alert, In no apparent distress, Oriented x3, Cooperative HEENT: Atraumatic, Mucous membr. moist/pink Neck: Supple Respiratory: Clear to auscultation bilaterally, Normal air movement Cardiovascular: Normal pulses, Regular rate/rhythm Gastrointestinal: Normal bowel sounds, Soft and benign, Non-distended, No tenderness, No masses, No rebound, No guarding Musculoskeletal: No erythema, No tenderness, No warmth Integumentary: No erythema, No warmth, No cyanosis Neurological: Other (Patient suffers from chronic pain to the lower extremities. ) - Studies Medications List Reviewed: Yes Assessment & Plan - Problems (Diagnosis) (1) Encephalopathy Current Visit: Yes Status: Acute Plan: Likely multifactorial-toxic versus metabolic. Encephalopathy appears resolved. Patient with UTI. Urine culture positive for enterococcus. Will change to oral Macrodantin. Blood cultures positive is well. Patient given 1 dose of vancomycin. Await results on this. Overall white count has improved. Will have physical therapy assess ambulation. MRI brain shows no acute stroke. MRI of spine shows cervical spondylosis, spinal stenosis. This can be further assessed as an outpatient. This was discussed in detail with Neurology. Patient will need to see neurovascular surgery to further address. Will provide medication for pain. Will continue to monitor closely. Will also obtain urine drug screen. Likely discharge tomorrow. (2) Dehydration Current Visit: Yes Status: Acute Plan: Continue with IV fluids. Renal function has improved. Renal ultrasound unremarkable. (3) UTI (urinary tract infection) Current Visit: Yes Status: Suspected Plan: Urine culture reviewed. Will start Macrodantin. Await blood cultures as well. Urine culture positive for enterococcus Qualifiers: Urinary tract infection type: site unspecified Hematuria presence: without hematuria Qualified Code(s): N39.0 - Urinary tract infection, site not specified (4) Acute kidney injury Current Visit: Yes Status: Acute Plan: This is likely from dehydration. This has improved with IV fluids. Renal ultrasound shows no chronic renal disease. (5) Altered mental status Current Visit: Yes Status: Acute Plan: Patient came in with confusion. Patient appears to be at his baseline level. He is appropriate now. Will continue with above plan of care. Will check urine drug screen. Patient made be abusing drugs as an outpatient. Qualifiers: Altered mental status type: unspecified Qualified Code(s): R41.82 - Altered mental status, unspecified (6) Bilateral knee pain Current Visit: Yes Status: Acute Plan: Patient apparently came in with bilateral knee pain. Patient reports chronic knee pain. Will provide medication. Will have physical therapy assess ambulation. Qualifiers: Chronicity: acute Qualified Code(s): M25.561 - Pain in right knee; M25.562 - Pain in left knee; M25.562 - Pain in left knee (7) Hypomagnesemia Current Visit: Yes Status: Acute Plan: Continue monitor and replace appropriately. Replacement protocol in place. (8) Hyponatremia Current Visit: Yes Status: Acute Plan: Will continue with IV fluids. This is likely from volume depletion. (9) Leukocytosis Current Visit: Yes Status: Acute Plan: This has improved. Urine culture positive for Enterococcus. Antibiotics adjusted. Blood cultures also positive. Patient given 1 dose of vancomycin. Await urine culture results. (10) BPH (benign prostatic hyperplasia) Current Visit: Yes Status: Suspected Plan: Patient reports problems with urination and poor stream. PSA unremarkable. Will continue with medication. Patient will need to see urology as an outpatient. Qualifiers: Lower urinary tract symptom presence: symptoms present Lower urinary tract symptom detail: straining on urination Qualified Code(s): N40.1 - Benign prostatic hyperplasia with lower urinary tract symptoms; R39.16 - Straining to void; R39.16 - Straining to void (11) Cervical spondylosis Current Visit: Yes Status: Chronic Plan: Patient with cervical spondylosis. Recommendation to continue with medication for pain as needed. Neurology recommends neurovascular evaluation as an outpatient. (12) Cervical spinal stenosis Current Visit: Yes Status: Chronic Plan: Continue as above. Patient will need neurovascular evaluation as an outpatient. (13) Bacteremia Current Visit: Yes Status: Acute Plan: Blood cultures pending. Patient did get a dose of vancomycin. Await final results. (14) Drug abuse Current Visit: Yes Status: Suspected Plan: Will check urine drug screen. Discharge Plan: Home Plan to discharge in: 24 Hours Time Spent Managing Pts Care (In Minutes): 55
--- NOTE | 2018-02-05 13:21 | ECHO ---
HEIGHT: 5 ft 10 in WEIGHT: 220 lb 15.862 oz DATE OF STUDY: 02/05/[address]: Quintin Jay DO 2-DIMENSIONAL: YES M.MODE: YES DOPPLER: YES COLOR FLOW: YES TDS: NO PORTABLE: NO DEFINITY: NO BUBBLE STUDY: NO DIAGNOSIS: ALTERED MENTAL STATUS, CORONARY ARTERY DISEASE CARDIAC HISTORY: CATHERIZATION: NO SURGERY: NO PROSTHETIC VALVE: NO PACEMAKER: NO MEASUREMENTS (cm) DIASTOLIC (NORMALS) SYSTOLIC (NORMALS) IVSd 1.5 (0.6-1.2) LA Diam 4.0 (1.9-4.0) LVEF 79% LVIDd 4.7 (3.5-5.7) LVIDs 2.4 (2.0-3.5) %FS 48% LVPWd 1.4 (0.6-1.2) Ao Diam 3.1 (2.0-3.7) 2 DIMENSIONAL ASSESSMENT: RIGHT ATRIUM: NORMAL LEFT ATRIUM: NORMAL RIGHT VENTRICLE: NORMAL LEFT VENTRICLE: NORMAL TRICUSPID VALVE: NORMAL MITRAL VALVE: NORMAL PULMONIC VALVE: NORMAL AORTIC VALVE: SCLEROSIS PERICARDIAL EFFUSION: NONE AORTIC ROOT: NORMAL LEFT VENTRICULAR WALL MOTION: NORMAL DOPPLER/COLOR FLOW: NORMAL COMMENTS: NORMAL LEFT VENTRICULAR SIZE AND FUNCTION. AORTIC SCLEROSIS. NO WALL MOTION ABNORMALITY. NO EFFUSION. TECHNOLOGIST: Fatuma TIRADO
[2018-02-05] MEDS: TRAMADOL HCL 50 MG TAB PO PRN ×2 (15:03→20:57)
--- NOTE | 2018-02-05 19:11 | CON ---
Reason For Consultation: Consultation called by Dr. Jay because of altered mental status. History Of Present Illness: Mr. Hoyos is 62-year-old patient who is admitted to the hospital on the 03 of February after a fall where he bumped into an object and fell. He actually has chronic bilateral knee pain, which he states is arthritis, and falls repeatedly because of his knees. He does have a reported history of dementia. He has no other specific diagnosis as to the subtype. However, review of the chart indicates that at one point, the patient was about to be discharged after his admission for fall and knee pain, and he became lethargic and confused. His workup revealed a very elevated white blood cell count of 27,000 with 87.9% neutrophils. His procalcitonin was elevated to 1.35 and his creatinine was elevated to 1.3. In addition, he had hypomagnesemia to 1.5. He was treated with intravenous antibiotics. He did receive 1 g of Rocephin along with vancomycin per primary team and subsequent repeat white blood cell count did show improvement. Today, WBCs are 8.8 with a normal differential. He had a head, cervical spine, chest, abdomen and pelvis CT scan, which showed potential acute to subacute infarct that is 3 mm in size in the right basal ganglia and a 5 mm low-density area within the left thalamus, which is consistent for an old infarct. Subsequent brain MRI and MRA done earlier today shows that the frontal lobe area identified on the CT scan was likely an artifact created front scalp soft tissue and no acute infarction. The additional potential infarct also show not to be an infarct and to be artifact. Past Medical History: Hypertension, transient ischemic attack. Past Surgical History: None. Allergies: NO KNOWN DRUG ALLERGIES. Current Medications: Aspirin 81 mg daily, Lipitor 40 mg at bedtime. He received Rocephin 1 g daily, Lovenox 40 mg subcutaneously daily and his Atrovent nebulizer 0.5 mg every 6 hours, Zofran 4 mg every 6 hours, Protonix 40 mg daily, and Flomax 0.4 mg at bedtime. Review of Systems: Extremities reports significant pain in his knees, which has been chronic resulting in multiple falls. He says it is arthritic type pain. He denies any fevers or chills, nausea or vomiting. Denies any focal deficits. Physical Examination: Vital Signs: Blood pressure 188/85, pulse 70, respiratory rate 18, temperature 98.2, oxygen saturation 93%. Weight 220 pounds. Height 5 feet 10 inches, BMI is 29. General: Mr. Hoyos is resting in bed. He is in no acute distress. HEENT: Head is normocephalic, atraumatic. He has very poor dentition and he is missing several teeth and has loose teeth. Neurologic: Cranial nerve examination revealed no focal deficits on 2 through 12. His motor examination revealed no focal weakness in upper and lower extremities. His sensory exam is stocking-glove loss to light touch temperature. Reflex is depressed in upper and lower extremities. Coordination is slow, but intact in upper and lower extremities. Assessment: Mr. Hoyos is a 62-year-old patient with a likely toxic encephalopathy that is resolving well. He did have a mini-mental status test done with a score of 26/30 where he missed 1 for delayed verbal recall, 2 for orientation to time and [address] This is consistent with mild cognitive impairment. Plan: The patient may be followed in clinic for blood work to complete a dementia workup. Next, he should continue with the aspirin 81 mg daily along with folic acid 1 mg daily. Continue with Lipitor 40 mg at bedtime and continue with aggressive management of his hypertension, perhaps adding an ALEKSANDER inhibitor. He should be instructed on importance of hydration as he does have some moderate dehydration with a creatinine on admission of 1.49. He will be discharged home today. Follow up in Dr. Fritz's clinic in 1 month. RYLEE/JOSE MANUEL Voice ID: [id number] Report ID: [id number] DOM
[2018-02-05] MEDS: ATORVASTATIN 40 MG TAB PO SCH (20:56)
[2018-02-05] MEDS: TAMSULOSIN 0.4 MG SR CAP PO SCH (20:57)
[2018-02-05 21:52] LABS: Barbiturates NEGATIVE; Benzodiazepines NEGATIVE; Cocaine NEGATIVE; METHAMPHETAM NEGATIVE; Opiates NEGATIVE; Phencyclidine NEGATIVE; THC Cannibis NEGATIVE
[2018-02-06 05:14] LABS: Absolute Lymphocytes (CBC) 1.3 K/uL (0.7-4.9); Absolute Monocytes 0.8 K/uL (0.1-1.3); Absolute Neutrophil 4.5 K/uL (1.8-8.0); Basophils % 0.8 % (0-1.3); Eosinophils % 2.3 % (0-4.4); Hematocrit 28.2 % (39.6-49.0); Lymphocytes % 18.8 % (15.3-44.8); MCH 30.8 pg (27.0-35.0); MCV 86.2 fL (80-100); MPV 7.4 fL (7.6-11.3); Monocytes % 11.6 % (3.3-12.3); RBC Red Blood Cell Count 3.27 M/uL (4.33-5.43)
[2018-02-06 05:26] LABS: Magnesium 1.8 mg/dL (1.8-2.5); Potassium 3.9 mEq/L (3.6-5.0)
[2018-02-06] MEDS ORDERED: MAGNESIUM SULFATE 1 gm IVPB 1 GM/100 ML BAG IV ONE (05:36)
[2018-02-06] MEDS: PANTOPRAZOLE 40MG TABLET PO SCH (05:45)
[2018-02-06] MEDS: ARFORMOTEROL TARTRATE 15 MCG/2 ML VIAL.NEB NEB SCH (08:00)
[2018-02-06] MEDS: ENOXAPARIN 40 MG/0.4 ML SQ SCH (09:00)
[2018-02-06] MEDS ORDERED: POTASSIUM CL SA 10 MEQ TAB PO ONE (09:00)
[2018-02-06] MEDS: TRAMADOL HCL 50 MG TAB PO PRN (09:33)
[2018-02-06] MEDS: ASPIRIN EC 81 MG TAB PO SCH (09:34)
[2018-02-06] MEDS: CEFTRIAXONE/SWI 1gm 1 GM/10 ML SYR IV SCH (09:34)
[2018-02-06 11:45] VITALS: O2SAT 94
[2018-02-06 18:13] VITALS: BP 174/84; TEMP 98.7
--- NOTE | 2018-02-06 22:18 | DS ---
Date of Discharge: 02/06/2018 Veterans Adviser: Edilson Fritz MD, Neurology. Admitting Diagnoses: 1. Acute metabolic encephalopathy. 2. Bilateral knee pain. 3. Leukocytosis. 4. Acute kidney injury. 5. Hypomagnesemia. 6. Hyponatremia. Discharge Diagnoses: 1. Acute metabolic encephalopathy, resolved. 2. Urinary tract infection, acute cystitis without hematuria. 3. Acute kidney injury, likely secondary to prerenal azotemia from dehydration. 4. Acute dehydration, improved with IV fluids. 5. Bilateral knee pain, osteoarthritis. 6. Hypomagnesemia, replaced. 7. Hyponatremia, improved. 8. Leukocytosis, resolved. 9. Benign prostatic hypertrophy. Continue tamsulosin. 10. Cervical spondylosis. Will need followup with neurosurgery as outpatient. 11. Cervical spinal stenosis. 12. Bacteremia with culture showing Haemophilus. 13. Drug abuse. UDS negative. Hospital Course: The patient is a 62-year-old male, who came in with altered mental status, acute kidney injury, and elevated white count. The patient was found to have bilateral knee pain and UTI. The patient had imaging studies done , which did not show any acute cerebrovascular accident. Initially showed an artifact and also showed cervical spondylosis. Neurology was consulted. MRI of the brain was done, which did not show any acute infarct. Did show that this was an artifact created by the metal in the frontal scalp soft tissues. Carotid artery ultrasound was done, which showed minimal plaquing. No significant stenosis. Cervical spine MRI was done due to his pain, did show some spinal stenosis. The patient was recommended to follow with Neurology and Neurosurgery as an outpatient. He did have some acute kidney injury, which was treated with IV fluids. This was secondary to dehydration. The patient had renal ultrasound done, which was essentially negative. Did show small cyst in the lower pole of the right kidney. Echocardiogram was also done, which showed EF of 79%. No effusion. The patient was then cleared from Neurology standpoint to go home on aspirin, folic acid, and statin. The patient was counseled on discontinuing any smoking and drinking. He was also counseled on taking his medications as prescribed. His blood cultures grew out Haemophilus. His urine culture showed less than 10,000 colony-forming units. No growth. His group A strep screen was positive. Influenza screen was negative. The patient was then cleared for discharge and will be going to the [facility] as his living condition. The patient was discharged to [facility] in a stable condition. Activity: As tolerated. Fall precautions. Discharge Followup: Follow with PCP in 2-3 days. Follow up with Neurology, Dr. Fritz, in one month. Follow up with Neurosurgery in 4-6 weeks. Return to ER for worsening condition. Diet: Heart healthy. Medications: As per medication reconciliation list. Discharge Physical Examination: General: Awake, alert, oriented, in no acute distress elderly male, who appears older than stated age. CV: S1, S2. No murmurs. Respiratory: Moving air well bilaterally. No wheezing. Abdomen: Soft, nontender, nondistended. Positive bowel sounds. Extremities: No clubbing, cyanosis, or edema. Neurologic: Nonfocal. ADDENDUM: blood cx now showing neserria. sensitivities noted. /JOSE MANUEL Voice ID: [id number] Report ID: [id number] [id number]
[2018-02-08 03:31] LABS: HBsAG Nonreactive (Nonreactive); Hepatitis A IgM Antibody Nonreactive
--- NOTE | 2018-02-09 12:16 | EEG ---
CHART: [id number] TEST ID#: [id number] DATE OF STUDY: 02/04/2018 THE EEG WAS RECORDED PORTABLE IN THE PATIENT'S ROOM ON A 17 CHANNEL MACHINE. ELECTRODES WERE APPLIED IN THE USUAL MANNER USING THE INTERNATIONAL 10-20 SYSTEM. THE WAKING BACKGROUND RHYTHM IN THIS RECORD CONSISTS OF WELL DEVELOPED AND WELL ORGANIZED WAVES OF 10 HZ., IN A WIDE DISTRIBUTION MAXIMAL IN THE POSTERIOR HEAD REIONS WHICH ATTENUATE NORMALLY WITH EYE OPENING. LOW-VOLTAGE 18-22 HZ ACTIVITES IS EXPRESSED IN THE FRONTAL REGIONS. THERE ARE NO FOCAL OR LATERALIZING FEATURES. NO EPILEPTIFORM ACTIVITY APPEARS. SLEEP OCCURRED NATURALLY. IN ADDITION NORMAL SLEEP PATTERNS ARE PRESENT. HYPERVENTILATION WAS NOT PERFORMED. PHOTIC STIMULATION PRODUCED FAIR DRIVING BILATERALLY. IMPRESSION: NORMAL EEG FOR THE AGE OF THE PATIENT IN [place], DROWSINESS AND SLEEP.
[2018-02-09 19:29] LABS: Hepatitis C Virus RNA (PCR)log 6.94 log IU/mL
== END 2018-02-06 16:55 | disposition home or self-care (01) | DRG 682 ==
LOC: ER 16:20 → EDBD 16:20 → ERHOLD 22:52 → OBSVTOIN 22:52 → 2ND 02-04 01:36
PROVIDERS: ADMIT Hospitalist; ATTEND Family Medicine
PROC: 0T9B70Z Drainage of Bladder with Drainage Device, Via Natural or Artificial Opening (ICD-10-PCS; principal; 2018-02-03)
DX: N17.9 Acute kidney failure, unspecified (principal); G92 Toxic encephalopathy; N30.01 Acute cystitis with hematuria; E87.1 Hypo-osmolality and hyponatremia; E83.42 Hypomagnesemia; E86.0 Dehydration; N40.0 Benign prostatic hyperplasia without lower urinary tract symptoms; M47.892 Other spondylosis, cervical region; M17.0 Bilateral primary osteoarthritis of knee
CPT/HCPCS: 36415; 51702; 70450; 70544; 70549; 70553; 71045; 71250; 72125; 72141; 76770; 80048; 80053; 80061; 80074; 80307; 81001; 81003; 82550; 82553; 83036; 83605; 83690; 83735; 83880; 84100; 84145; 84439; 84443; 84484; 85025; 85610; 85730; 87040; 87081; 87086; 87088; 87184; 87205; 87522; 87804; 93005; 93306; 93880; 94640; 95819; 96365; 96375; 97163; 99285; A9577; G0103; J0692; J0696; J1650; J3370; J3475; J7030; J7605

== ENCOUNTER 2018-02-19 15:43 | Inpatient (IN) | payer OTHER ==
[2018-02-19] MEDS ORDERED: NA CHLORIDE 0.9% 1,000 ML ONE (17:02)
--- NOTE | 2018-02-19 17:06 | RAD REPORT ---
EXAM DESCRIPTION: CT - Head Brain Wo Cont - 02/19/2018 4:54 pm CLINICAL HISTORY: Left hand numbness COMPARISON: CT February 04, 2018 TECHNIQUE: Computed axial tomography of the head was obtained. IV contrast was not requested. All CT scans are performed using dose optimization technique as appropriate and may include automated exposure control or mA/KV adjustment according to patient size. FINDINGS: An intracranial bleed is not seen . The ventricles are normal in caliber. No extra-axial fluid collection is noted. An 15 millimeter low-density area within the right syncope and basal ganglia is more defined than on the prior CAT scan and likely represents a subacute infarct . Small low-density area within the left thalamus represents an old infarction. Mild low-density areas within periventricular and deep white matter likely represent ischemic changes secondary to small vessel disease. The left mastoid is opacified. A metallic round structure perhaps a BB lies within the right frontal scalp IMPRESSION: 15 millimeter low-density area within the right basal ganglia has become more defined th an on the prior CAT scan and likely represents a subacute infarct. An acute infarction is not seen
--- NOTE | 2018-02-19 17:09 | RAD REPORT ---
EXAM DESCRIPTION: Hoa Single View02/19/2018 4:50 pm CLINICAL HISTORY: Hypertension COMPARISON: February 04, 2018 FINDINGS: The lungs appear clear of acute infiltrate. The heart is borderline enlarged. Aorta is to rtuous/ectatic IMPRESSION: No acute abnormalities displayed
[2018-02-19 17:20] LABS: Absolute Lymphocytes (CBC) 1.1 K/uL (0.7-4.9); Absolute Monocytes 0.6 K/uL (0.1-1.3); Absolute Neutrophil 5.8 K/uL (1.8-8.0); Basophils % 0.7 % (0-1.3); Eosinophils % 3.6 % (0-4.4); Hematocrit 31.6 % (39.6-49.0); Lymphocytes % 13.9 % (15.3-44.8); MCH 30.3 pg (27.0-35.0); MCV 85.5 fL (80-100); MPV 8.5 fL (7.6-11.3); Monocytes % 7.4 % (3.3-12.3)
[2018-02-19 17:40] LABS: Potassium 3.7 mEq/L (3.6-5.0)
[2018-02-19 17:46] LABS: Albumin 3.9 g/dL (3.2-5.5); Bilirubin Direct 0.2 mg/dL (0-0.2); Bilirubin Total 0.9 mg/dL (0.3-1.2); Magnesium 1.9 mg/dL (1.8-2.5); Protein, Total 7.6 g/dL (6.0-8.3)
[2018-02-19 17:50] LABS: CKMB Creatine Kinase MB 5.1 ng/ml (0.3-4.0)
[2018-02-19] MEDS ORDERED: FOLIC ACID 5 MG/ML VIAL ONE (18:06)
[2018-02-19 18:16] LABS: Protime INR 1.06
[2018-02-19] MEDS ORDERED: ASPIRIN 81 MG CHEWABLE TABLET ONE (19:07)
[2018-02-19 20:21] LABS: Urine Blood TRACE (NEG); Urine Glucose NEGATIVE (NEG); Urine Protein 2+ (NEG)
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
--- NOTE | 2018-02-19 20:54 | ER ---
Nurse's Notes [facility] Name: Raphael Hoyos Age: 62 yrs Sex: Male : 1955 Arrival Date: 02/19/2018 Time: 15:57 Bed 28 Private MD: Diagnosis: Weakness Presentation: 02/19 16:10 Presenting complaint: Patient states: pt has hx of CVA X2, today around 1430 he started iw to feel like his left leg was getting more weak than it usually is, and his left arm is more weak than it usually is, also has had intermittent left hand numbness that he feels is worse today, states he couldn't move his legs and he got dizzy, also has a lot of pain in both legs and knees. 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 Pt states he has been living at the [facility] and has been sitting in a chair, sleeping upright for past couple nights. Transition of care: patient was not received from another setting of care. 16:10 Method Of Arrival: EMS: [facility] iw 18:27 Onset of symptoms was February 19, 2018. Initial Sepsis Screen: Does the patient meet any aj1 2 criteria? No. Patient's initial sepsis screen is negative. Does the patient have a suspected source of infection? No. Patient's initial sepsis screen is negative. Care prior to arrival: None. 18:27 Acuity: DANIELA 3 aj1 Historical: - Allergies: 16:29 NKA; iw - Home Meds: 16:29 None [Active]; iw - PMHx: 16:29 Hypertension; CVA; iw - PSHx: 16:29 None; iw - Immunization history:: Adult Immunizations unknown. - Social history:: Smoking status: unknown. Screenin:31 Abuse screen: Denies threats or abuse. Denies injuries from another. Nutritional iw screening: No deficits noted. Tuberculosis screening: No symptoms or risk factors identified. Fall Risk IV access (20 points). Assessment: 16:30 General: Appears in no apparent distress. Behavior is calm, cooperative. Pain: iw Complains of pain in right leg and left leg Pain currently is 8 out of 10 on a pain scale. Neuro: Level of Consciousness is awake, alert, obeys commands, Oriented to person, place, time, situation, Flight Service Specialist are weak on right Weakness in bilateral leg(s) Speech is normal, Reports numbness in left hand weakness in right arm, left arm, right leg and left leg. Cardiovascular: Capillary refill < 3 seconds in bilateral fingers Patient's skin is warm and dry. Respiratory: Respiratory effort is even, unlabored, Respiratory pattern is regular. GI: Abdomen is non-distended. Derm: Skin is normal. 17:30 General: Appears in no apparent distress. uncomfortable, Behavior is calm, cooperative, aj1 appropriate for age. Pain: Complains of pain in left leg and right leg. 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 Cardiovascular: Heart tones S1 S2 present Patient's skin is warm and dry. Rhythm is sinus rhythm. Respiratory: Airway is patent Respiratory effort is even, unlabored, Respiratory pattern is regular, symmetrical, Breath sounds are clear bilaterally. GI: Abdomen is non-distended, Abd is soft X 4 quads. : No signs and/or symptoms were reported regarding the genitourinary system. EENT: No signs and/or symptoms were reported regarding the EENT system. Derm: No signs and/or symptoms reported regarding the dermatologic system. Skin is pink, warm \T\ dry. normal. Musculoskeletal: No signs and/or symptoms reported regarding the musculoskeletal system. Circulation, motion, and sensation intact. 18:26 Reassessment: Patient appears in no apparent distress at this time. No changes from aj1 previously documented assessment. Patient and/or family updated on plan of care and expected duration. Pain level reassessed. Patient is alert, oriented x 3, equal unlabored respirations, skin warm/dry/pink. 19:28 Reassessment: No changes from previously documented assessment. ag2 20:34 Reassessment: No changes from previously documented assessment. Patient and/or family ag2 updated on plan of care and expected duration. Pain level reassessed. 20:52 Reassessment: Patient vitals: bp: 190/100. hr: 82. Patient moving around in bed trying ag2 to urinate. No s/s of distress. Pt reports no chest pain, but he has chronic back pain. MD notified of blood pressure. 22:22 Reassessment: Patient not in room, patient taken for diagnostic procedure. ag2 Vital Signs: 16:19 BP 167 / 90; Pulse 80; Resp 20; Temp 98.0(O); Pulse Ox 99% on R/A; Weight 104.33 kg; iw Height 5 ft. 10 in. (177.80 cm); Pain 8/10; 17:30 BP 189 / 96; Pulse 70; Resp 18; Pulse Ox 100% on R/A; aj1 18:27 BP 188 / 97; Pulse 78; Resp 20; Pulse Ox 100% on R/A; aj1 19:29 BP 166 / 95; Pulse 86; Resp 18; Pulse Ox 97% ; ag2 20:34 BP 167 / 95; Pulse 80; Resp 18; Pulse Ox 100% ; Pain 4/10; ag2 23:00 BP 169 / 92; Pulse 59; Resp 18; Pulse Ox 98% ; ag2 16:19 Body Mass Index 33.00 (104.33 kg, 177.80 cm) iw NIH Stroke Scale Scores: 16:46 NIHSS Score: 0 snw ED Course: 15:57 Patient arrived in ED. iw 16:01 [facility]C [facility] snw 16:01 Martir Hahn MD is Attending Physician. snw 16:19 Arm band placed on. iw 16:[address] via stretcher. jg1 16:50 X-ray completed. Portable x-ray completed in exam room. Patient tolerated procedure kc2 well. 16:51 XRAY Chest (1 view) In Process Unspecified. EDMS 16:53 CT completed. Patient tolerated procedure well. Patient moved to CT via stretcher. nj Patient moved back from CT. 16:54 CT Head Brain wo Cont In Process Unspecified. EDMS 17:00 Deborah Simpson, RADHAMES is Primary Nurse. aj1 17:30 Patient has correct armband on for positive identification. Bed in low position. Call aj1 light in reach. Side rails up X 1. 17:30 No provider procedures requiring assistance completed. Inserted saline lock: 20 gauge aj1 in left antecubital area, using aseptic technique. Blood collected. 18:27 Triage completed. aj1 20:53 Fish Carey MD is Hospitalizing Provider. snw 22:17 Patient moved to radiology via wheelchair. kc2 22:29 X-ray completed. Patient tolerated procedure poorly. kc2 22:30 Patient moved back from radiology. kc2 23:01 Converted IV to saline lock on left antecubital area ag2 Administered Medications: 17:40 Drug: NS 0.9% 1000 ml Route: IV; Rate: 125 ml/hr; Site: left antecubital; aj1 18:08 Drug: foLIC Acid 1 mg Route: IVPB; Site: left antecubital; aj1 19:12 Drug: Aspirin 81 mg Route: PO; ag2 20:54 Follow up: Response: No adverse reaction ag2 21:00 Drug: Metoprolol 25 mg Route: PO; ag2 22:21 Follow up: Response: No adverse reaction ag2 Outcome: 20:54 Decision to Hospitalize by Provider. snw 23:00 Admitted to Med/surg accompanied by nurse, via stretcher, Report called to Bibi Lee ag2 23:00 Condition: stable 23:01 Discharge instructions given to patient. ag2 23:32 Patient left the ED. aj1 NIH Stroke Scale - NIH Stroke Score Date: 02/19/2018 Time: 16:46 Total Score = 0 1a. Level of Consciousness (LOC) - 0(Alert) 1b. Level of Consciousness (LOC) (Year \T\ Age) - 0(Both) 1c. LOC Commands (Open \T\ Closes Eyes/Budget Analyst) - 0(Both) 2. Best Gaze (Lateral Gaze Paresis) - 0(Normal) 3. Visual Field Loss - 0(No visual loss) 4. Facial Palsy - 0(Normal) 5a. Left Arm: Motor (10-second hold) - 0(No drift) 5b. Right Arm: Motor (10-second hold) - 0(No drift) 6a. Left Leg: Motor (5-second hold - always test supine) - 0(No drift) 6b. Right Leg: Motor (5-second hold - always test supine) - 0(No drift) 7. Limb Ataxia (finger/nose \T\ heel/bettencourt - test with eyes open) - 9(Amputation, joint fusion) - Notes: previous CVA with residual right lower extremity weakness 8. Sensory Loss (pinprick arms/legs/face) - 0(Normal) 9. Best Language: Aphasia (description/naming/reading) - 0(No aphasia) 10. Dysarthria (speech clarity - read or repeat words) - 0(Normal) 11. Extinction and Inattention (visual/tactile/auditory/spatial/personal) - 0(No abnormality) Initials: snw Signatures: Dispatcher [employer] Deborah Trujillo RN RN aj1 Barbie Kumar, REIMBURSEMENT DIRECTOR-C REIMBURSEMENT DIRECTOR-Csnw Shilpi Patricia Irene, RN RN iw Carr, Kelsie kc2 Nando Marquez, Chacha ag2 Corrections: (The following items were deleted from the chart) : 19:15 Reassessment: ag2 ag2 19:15 General: ag2 ag2
[2018-02-19] MEDS ORDERED: METOPROLOL TAR 25 MG TAB ONE (20:57)
[2018-02-19] MEDS ORDERED: ONDANSETRON 4 MG/2 ML VIAL IV PRN (21:51)
[2018-02-19] MEDS ORDERED: MAGNESIUM HYDROXIDE 8% 30 ML PO PRN (21:51)
[2018-02-19] MEDS: NA CHLORIDE 0.9% 1,000 ML IV SCH (23:48)
[2018-02-20 05:43] LABS: Absolute Lymphocytes (CBC) 1.4 K/uL (0.7-4.9); Absolute Monocytes 0.7 K/uL (0.1-1.3); Absolute Neutrophil 4.4 K/uL (1.8-8.0); Basophils % 0.9 % (0-1.3); Hematocrit 31.7 % (39.6-49.0); Lymphocytes % 20.7 % (15.3-44.8); MCH 29.6 pg (27.0-35.0); MPV 7.9 fL (7.6-11.3); Monocytes % 10.5 % (3.3-12.3); RBC Red Blood Cell Count 3.68 M/uL (4.33-5.43)
[2018-02-20 05:55] LABS: Albumin 3.6 g/dL (3.2-5.5); Bilirubin Total 0.9 mg/dL (0.3-1.2); Magnesium 1.8 mg/dL (1.8-2.5); Phosphorus 3.3 mg/dL (2.5-4.3); Potassium 4.1 mEq/L (3.6-5.0)
[2018-02-20] MEDS ORDERED: MAGNESIUM SULFATE 1 gm IVPB 1 GM/100 ML BAG IV ONE (06:09)
[2018-02-20] MEDS: ACETAMINOPHEN 500 MG TAB PO PRN ×2 (06:28→20:33)
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
[2018-02-20] MEDS: ASPIRIN EC 81 MG TAB PO SCH (08:36)
[2018-02-20] MEDS: VALSARTAN 160 MG TAB PO SCH ×2 (08:37→20:33)
[2018-02-20] MEDS: CLOPIDOGREL 75 MG TABLET PO SCH (08:37)
--- NOTE | 2018-02-20 10:51 | RAD REPORT ---
EXAM DESCRIPTION: RAD - Chest Pa And Lat (2 Views) - 02/19/2018 10:31 pm CLINICAL HISTORY: Chest pain, CVA COMPARISON: 02/19/2018 FINDINGS: The lungs are clear. The heart is normal in size. No displaced fractures. Tortuous thoraci c aorta. IMPRESSION: No acute or concerning finding suspected.
[2018-02-20] MEDS: NA CHLORIDE 0.9% 1,000 ML IV SCH (11:20)
--- NOTE | 2018-02-20 12:08 | P.PN ---
Subjective Date of Service: 02/20/18 Chief Complaint: Subacute infarct Pt seen and examined at bedside. Chart reviewed. Pt doing well overall. No complains to offer now. No Weakness noted. Pt states its getting better. Review of Systems General: As per HPI Physical Examination - Vital Signs Temperature: 97.4 F Blood Pressure: 170/81 Pulse: 64 Respirations: 18 Pulse Ox (%): 99 - Physical Exam General: Alert, In no apparent distress, Oriented x3 HEENT: Atraumatic Neck: Supple, JVD not distended Respiratory: Clear to auscultation bilaterally, Normal air movement Cardiovascular: Regular rate/rhythm, Normal S1 S2 Gastrointestinal: Normal bowel sounds, No tenderness Musculoskeletal: No tenderness Integumentary: No rashes Neurological: Normal speech, Normal tone, Normal affect, Abnormal strength ( left sided weakness. ) Lymphatics: No axilla or inguinal lymphadenopathy - Studies Laboratory Data (last 24 hrs) 02/19/18 18:02: PT 12.5, INR 1.06, APTT 28.1 02/19/18 16:06: WBC 7.8 D, Hgb 11.2 L, Hct 31.6 L, Plt Count 240 D 02/19/18 16:06: B-Natriuretic Peptide 23 02/19/18 16:06: Sodium 136, Potassium 3.7, BUN 30 H, Creatinine 0.93, Glucose 122 H, Magnesium 1.9, Total Bilirubin 0.9, AST 27, ALT 19, Alkaline Phosphatase 74 Medications List Reviewed: Yes Assessment & Plan - Problems (Diagnosis) (1) Acute CVA (cerebrovascular accident) Current Visit: Yes Status: Acute Plan: Right Basal Ganglia infarct with left side weakness -Head CT + for right basal ganglia -MRI, MRA and ECHO pending -Carotid U/S pending -ASA, Plavix, Lipitor on board -Neurology consulted. Awaiting reccs -PT.OT and ST consulted -Pt passed bedside swallow. (2) Basal ganglia infarction Current Visit: Yes Status: Acute Plan: See# 1 (3) HTN (hypertension) Current Visit: Yes Status: Chronic Qualifiers: Hypertension type: essential hypertension Qualified Code(s): I10 - Essential (primary) hypertension Discharge Plan: Other Plan to discharge in: 48 Hours - Code Status/Comfort Care Code Status Assessed: Yes Critical Care: No
[2018-02-20] MEDS: ENOXAPARIN 40 MG/0.4 ML SQ SCH (16:28)
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
[2018-02-20] MEDS: ATORVASTATIN 20 MG TAB PO SCH (20:33)
[2018-02-21] MEDS: NA CHLORIDE 0.9% 1,000 ML IV SCH ×2 (00:14→16:46)
[2018-02-21 07:46] LABS: A1c Component 0.35 mg/dL
--- NOTE | 2018-02-21 08:18 | RAD REPORT ---
EXAM DESCRIPTION: RACQUEL - CP - 02/20/2018 10:17 pm CLINICAL HISTORY: CVA COMPARISON: February 04 TECHNIQUE: Real-time sonographic evaluation of both carotid systems was performed. Doppler interroga tion was performed with waveform tracing bilaterally. FINDINGS: Normal high resistance waveforms are noted in both external carotid arteries. The common c arotid arteries and internal carotid arteries show normal low resistance waveforms. Mild plaquing changes are present. No dissection or new vascular finding since the short interval Jan study. Adjusting for technique differences, velocity and ratio values have not changed and carito in within normal range. Antegrade flow seen in both vertebral arteries. Velocity values and ratios were recorded and are retained in the patient's imaging records. IMPRESSION: Mild plaquing changes similar to the prior study. No dissection or new finding seen. No evidence of a hemodynamically significant stenosis.
[2018-02-21] MEDS: ASPIRIN EC 81 MG TAB PO SCH (08:54)
[2018-02-21] MEDS: VALSARTAN 160 MG TAB PO SCH ×2 (08:54→20:39)
[2018-02-21] MEDS: CLOPIDOGREL 75 MG TABLET PO SCH (08:54)
[2018-02-21] MEDS: ACETAMINOPHEN 500 MG TAB PO PRN ×3 (08:54→20:44)
--- NOTE | 2018-02-21 09:39 | P.PN ---
Subjective Date of Service: 02/21/18 Chief Complaint: Subacute infarct Pt seen and examined at bedside. Chart reviewed. Pt doing well overall. No complains to offer now. No Weakness noted. Pt states he getting better. Worked with PT yesterday. Did well overall. Review of Systems General: As per HPI Physical Examination - Vital Signs Temperature: 96.4 F Blood Pressure: 161/77 Pulse: 72 Respirations: 16 Pulse Ox (%): 98 - Physical Exam General: Alert, In no apparent distress, Oriented x3 HEENT: Atraumatic Neck: Supple Respiratory: Clear to auscultation bilaterally, Normal air movement Cardiovascular: Regular rate/rhythm, Normal S1 S2 Gastrointestinal: Normal bowel sounds, Soft and benign, Non-distended, No tenderness Musculoskeletal: No tenderness Integumentary: No rashes Neurological: Normal speech, Normal strength at 5/5 x4 extr, Normal tone, Normal affect Lymphatics: No axilla or inguinal lymphadenopathy - Studies Medications List Reviewed: Yes Assessment & Plan - Problems (Diagnosis) (1) Acute CVA (cerebrovascular accident) Current Visit: Yes Status: Acute Plan: Subacute Right Basal Ganglia infarct with left side weakness vs cervical Ridiculopathy -Head CT + for right basal ganglia -MRI, MRA and ECHO pending -Carotid U/S -ASA, Plavix, Lipitor on board -Neurology consulted. Reccs Appreciated -Continue with ASA, Plavix and Lipitor -MRI/MRA -Pt may need to be transfered to [place] for cervical spine stenosis given the acute worsening. Will make a decision depending on the MRI result nerissa. -PT.OT and ST consulted -Pt passed bedside swallow. (2) Cervical myelopathy with cervical radiculopathy Current Visit: Yes Status: Acute Plan: Cervical myelopathy, possible new stroke versus just worsening of the underlying cervical myelopathy. -If there is no evidence of a new stroke, then he will need to be transferred up to the medical center for decompression. He needs surgical decompression of his cervical spine. It is just a question of the timing for that decompression as risk of performing such a major surgery soon after an ischemic stroke is high. . (3) Basal ganglia infarction Current Visit: Yes Status: Acute Plan: See# 1 (4) HTN (hypertension) Current Visit: Yes Status: Chronic Qualifiers: Hypertension type: essential hypertension Qualified Code(s): I10 - Essential (primary) hypertension Discharge Plan: Home Plan to discharge in: 24 Hours - Code Status/Comfort Care Code Status Assessed: Yes Critical Care: No
[2018-02-21 09:47] LABS: BUN Blood Urea Nitrogen 16 mg/dL (6-20); Bicarbonate 26 mEq/L (21-31); Glucose Level 83 mg/dL (65-120); Magnesium 1.8 mg/dL (1.8-2.5); Potassium 3.5 mEq/L (3.6-5.0); Sodium Level 138 mEq/L (135-145); Thyroid Stimulating Hormone 1.49 uIU/mL (0.34-5.60)
[2018-02-21] MEDS ORDERED: POTASSIUM CL SA 10 MEQ TAB PO ONE (10:03)
[2018-02-21] MEDS ORDERED: MAGNESIUM SULFATE 1 gm IVPB 1 GM/100 ML BAG IV ONE (10:04)
--- NOTE | 2018-02-21 14:00 | PN ---
Date of Progress Note: 02/21/2018 Time: 1230. Reason: Generalized weakness, cervical myelopathy, possible new stroke. Interval History: The patient is stable. Symptoms are the same. B12 pending. Thyroid normal. Aga in reviewed MRI and reviewed with Radiology, who do not think the diffusion imaging is going to be di agnostic of anything as long as there is a metallic foreign body, so we will consult General Surgery to try and remove the foreign body at bedside so we can get a diagnostic MRI early next week. Physical Examination: He is awake, alert, oriented. Cranial nerves are unremarkable. Left triceps 3+, right triceps 4-, f jaquan extensors 4/5. Tone increased in the legs. Bilateral hip flexors 4+. Reflexes brisk at the k nees. [place] on the left. The patient ambulates with a rolling walker. Pertinent Laboratory Data: Thyroid normal. B12 pending. Impression: Cervical myelopathy, possible new stroke. Plan: BB extraction. Continue statin, DVT prophylaxis and anti-platelet agents. We will continue t o follow with you. DARION Voice ID: [id number] Report ID: [id number]
--- NOTE | 2018-02-21 16:18 | EKG ---
Test Date: 2018-02-19 Test Time: 17:06:36 Vehicle Dynamics Engineer: CECY MEASUREMENT RESULTS: Intervals: Rate: 74 NC: 198 QRSD: 94 QT: 418 QTc: 463 [place]: P: 48 NC: 198 QRS: 53 T: 87 INTERPRETIVE STATEMENTS: Normal sinus rhythm Nonspecific T wave abnormality Prolonged QT Abnormal ECG Compared to ECG 02/04/2018 01:37:36 T-wave abnormality now present Prolonged QT interval now present ST deviation no longer present Electronically Signed On 02-21-18 16:17:33 CDT by Aneesh Flores
[2018-02-21] MEDS: ENOXAPARIN 40 MG/0.4 ML SQ SCH (16:45)
[2018-02-21] MEDS ORDERED: LIDOCAINE 1% W/EPI 1:100,000 MDV 50 ML VIAL IV ONE (17:21)
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
[2018-02-21] MEDS ORDERED: SILVER NITRATE 1 APPL TOP ONE (18:28)
[2018-02-21] MEDS: ATORVASTATIN 20 MG TAB PO SCH (20:40)
[2018-02-21 22:35] VITALS: O2SAT 100
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
[2018-02-22] MEDS: ACETAMINOPHEN 500 MG TAB PO PRN ×2 (00:50→18:56)
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
[2018-02-22] MEDS: NA CHLORIDE 0.9% 1,000 ML IV SCH ×2 (04:07→18:31)
[2018-02-22 06:15] LABS: BUN Blood Urea Nitrogen 15 mg/dL (6-20); Bicarbonate 27 mEq/L (21-31); Glucose Level 81 mg/dL (65-120); Potassium 3.8 mEq/L (3.6-5.0); Sodium Level 139 mEq/L (135-145)
[2018-02-22] MEDS ORDERED: POTASSIUM CL SA 10 MEQ TAB PO ONE (07:30)
[2018-02-22] MEDS: CEFTRIAXONE/SWI 1gm 1 GM/10 ML SYR IV SCH (10:22)
[2018-02-22] MEDS: CLOPIDOGREL 75 MG TABLET PO SCH (10:22)
[2018-02-22] MEDS: ASPIRIN EC 81 MG TAB PO SCH (10:22)
[2018-02-22] MEDS: VALSARTAN 160 MG TAB PO SCH ×2 (10:22→20:05)
[2018-02-22 10:28] LABS: Absolute Lymphocytes (CBC) 0.9 K/uL (0.7-4.9); Absolute Monocytes 0.4 K/uL (0.1-1.3); Absolute Neutrophil 3.1 K/uL (1.8-8.0); Basophils % 1.2 % (0-1.3); Eosinophils % 2.7 % (0-4.4); Hematocrit 34.1 % (39.6-49.0); Lymphocytes % 20.3 % (15.3-44.8); MCH 30.2 pg (27.0-35.0); Monocytes % 8.6 % (3.3-12.3); RBC Red Blood Cell Count 4.01 M/uL (4.33-5.43)
--- NOTE | 2018-02-22 10:43 | RAD REPORT ---
EXAM DESCRIPTION: MRI - Stroke Protocol - 02/22/2018 10:18 am CLINICAL HISTORY: Left hand numbness COMPARISON: February 04 and February 19 2018 TECHNIQUE: Axial, sagittal and coronal magnetic resonance images of the brain were obtained. cc Magn evist was administered. Magnetic resonance angiography of the head and neck was performed. Source lee ges were reviewed and reconstructed at 360 degrees rotation. FINDINGS: A 15 millimeter area of abnormal signal is present within the right basal ganglia. On diff usion-weighted/ADC mapping it has the appearance of a subacute infarct. It was present on the January 24 examination Small old lacunar infarction involves the left thalamus. Mild to moderate signal within periventricul ar, deep and subcortical white matter represents ischemic changes secondary to small vessel disease. No abnormal enhancement within the brain is seen. The ventricles are normal caliber. An extra-axial f luid collection is not noted. 14 millimeter area of abnormal signal within the right frontal scalp represents a metallic foreign caitlin dy Fluid within the sinuses/mastoids is not seen. The common, internal and external carotid arteries do not demonstrate a significant stenosis. The tucker tebral arteries are unremarkable. The mid internal carotid arteries are tortuous. 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 origin of the left posterior cerebral a rtery is present. The visualized anterior cerebral, middle cerebral, posterior cerebral, basilar and distal internal c arotid arteries do not demonstrate a significant stenosis. An aneurysm is not seen IMPRESSION: 15 millimeter subacute infarct involving the right basal ganglia No significant abnormality involving the arteries of the head and neck
--- NOTE | 2018-02-22 11:03 | RAD REPORT ---
EXAM DESCRIPTION: MRI - C Spine Wo Cont - 02/22/2018 10:18 am CLINICAL HISTORY: Right hand numbness/cervical myelopathy COMPARISON: February 04, 2018 TECHNIQUE: Magnetic resonance imaging of the cervical spine was obtained with coronal and sagittal r econstruction FINDINGS: Disc bulge and osteophytes are present at C2-3 narrowing the thecal sac which measures 8 m illimeters. Mild narrowing of the neural foramina bilaterally is present. Disc bulge and osteophytes are present at C3-4 narrowing the thecal sac which measures 6 millimeters. Moderate to marked narrowing of the neural foramina bilaterally is seen. Disc bulge and osteophytes are present at C4-5. The thecal sac measures 6.5 millimeters. Moderate to marked narrowing of the neural foramina bilaterally is seen. Disc bulge and osteophytes are present at C5-6. The thecal sac measures 4 millimeters. Marked narrowi ng of the neural foramina bilaterally is present. The spinal cord is significantly compressed. Disc bulge and osteophytes are present at C6-7. The thecal sac measures 5.5 millimeters. Moderate to marked narrowing of the neural foramina bilaterally is seen. Mild spondylosis is present at C7-T1. Abnormal signal involves the spinal cord from C3-C7 without change from the prior exam No significant abnormal signal within the bones is noted. IMPRESSION: Spondylosis most marked at C5-6 resulting in marked central and bilateral foraminal sten osis. Spondylosis C3-4, C4-5 and C6-7 resulting in [id number] central and foraminal stenosis. Abnormal signal involving the spinal cord from C3-C7 likely representing myelomalacia
--- NOTE | 2018-02-22 15:46 | ECHO ---
HEIGHT: 5 ft 10 in WEIGHT: 211 lb 5 oz DATE OF STUDY: 02/22/[address]: Fish Carey MD 2-DIMENSIONAL: YES M.MODE: YES DOPPLER: YES COLOR FLOW: YES TDS: YES PORTABLE: NO DEFINITY: NO BUBBLE STUDY: NO DIAGNOSIS: STROKE CARDIAC HISTORY: CATHERIZATION: NO SURGERY: NO PROSTHETIC VALVE: NO PACEMAKER: NO MEASUREMENTS (cm) DIASTOLIC (NORMALS) SYSTOLIC (NORMALS) IVSd 1.0 (0.6-1.2) LA Diam 3.8 (1.9-4.0) LVEF 62% LVIDd 4.2 (3.5-5.7) LVIDs 2.8 (2.0-3.5) %FS 33% LVPWd 1.1 (0.6-1.2) Ao Diam 3.4 (2.0-3.7) 2 DIMENSIONAL ASSESSMENT: RIGHT ATRIUM: NORMAL LEFT ATRIUM: NORMAL RIGHT VENTRICLE: NORMAL LEFT VENTRICLE: NORMAL TRICUSPID VALVE: NORMAL MITRAL VALVE: NORMAL PULMONIC VALVE: NORMAL AORTIC VALVE: SCLEROSIS PERICARDIAL EFFUSION: NONE AORTIC ROOT: NORMAL LEFT VENTRICULAR WALL MOTION: NORMAL DOPPLER/COLOR FLOW: IMPAIRED LEFT VENTRICULAR RELAXATION. NO AORTIC STENOSIS OR AORTIC REGURGITATION. COMMENTS: NORMAL 2D ECHOCARDIOGRAM. IMPAIRED LEFT VENTRICULAR RELAXATION. AORTIC SCLEROSIS WITH NO AORTIC STENOSIS OR AORTIC REGURGITATION. . TECHNOLOGIST: Arturo ROSA
--- NOTE | 2018-02-22 16:08 | P.PN ---
Subjective Date of Service: 02/22/18 Primary Care Provider: none Chief Complaint: Subacute infarct Subjective: Improving (Patient still with some numbness to the hands. Weakness to the upper extremities mainly in on the right side verses the left.) Physical Examination - Vital Signs Temperature: 97.3 F Blood Pressure: 166/86 Pulse: 56 Respirations: 18 Pulse Ox (%): 100 - Physical Exam General: Alert, In no apparent distress, Oriented x3, Cooperative HEENT: Atraumatic, Mucous membr. moist/pink Neck: Supple Respiratory: Clear to auscultation bilaterally, Normal air movement Cardiovascular: Normal pulses, Regular rate/rhythm Gastrointestinal: Normal bowel sounds, Soft and benign, Non-distended, No tenderness, No masses, No rebound, No guarding Musculoskeletal: No erythema, No tenderness, No warmth Integumentary: No erythema, No warmth, No cyanosis Neurological: Normal affect, Abnormal strength (Weakness to the hands bilateral , right greater than left.), Abnormal sensation (Numbness noted to the hands bilateral) - Studies Medications List Reviewed: Yes Assessment & Plan - Problems (Diagnosis) (1) Foraminal stenosis of cervical region Current Visit: Yes Status: Acute Plan: MRI of C-spine shows spondylosis most marked at C5-6 resulting in marked central and bilateral foraminal stenosis. Spondylosis to the C3-4, C4-5 and C6- 7 resulting in moderate to marked central and foraminal stenosis. Abnormal signal involving the spinal cord from C3 to C7 likely representing myelomalacia. Case discussed at length with Neurology. Patient does not require higher level of care treatment. At this time we will recommend that the patient go to a alf for continued rehabilitation before possible intervention by Neurosurgery and Pain management. Patient agreeable to this. Will have social media specialist evaluate for alf placement. (2) Basal ganglia infarction Onset Date: 02/22/18 Current Visit: Yes Status: Acute Plan: Subacute 15 mm right basal ganglia infarct noted. Will continue with aspirin and Plavix. Case discussed with Neurology. Will continue with above plan of care. (3) Cervical myelopathy with cervical radiculopathy Current Visit: Yes Status: Acute Plan: Numbness and strength to the hands improved. MRI reviewed with Neurology. Will continue with above recommendation. (4) HTN (hypertension) Current Visit: Yes Status: Chronic Plan: Will continue to get blood pressure better controlled. Will continue with medication. Qualifiers: Hypertension type: essential hypertension Qualified Code(s): I10 - Essential (primary) hypertension (5) Bacteremia Current Visit: No Status: Chronic Plan: On February 04, 2018 blood cultures were positive for Neisseria. Patient reports that he was not treated for this as the results came after he was hospitalized. Repeat blood cultures still negative. Pro calcitonin negative. Will discuss with microbiology to see if this may be inaccurate. Will repeat blood culture again today. Patient without any significant symptoms of headaches, nausea and vomiting, or encephalopathy. Will continue to cover with IV antibiotic therapy. (6) Dehydration Current Visit: No Status: Acute Plan: Will continue with IV fluid hydration. Encourage oral intake. (7) Cervical spondylosis Current Visit: No Status: Chronic Plan: Will continue with above plan of care. Qualifiers: Spinal osteoarthritis complication: with radiculopathy Qualified Code(s): M47.22 - Other spondylosis with radiculopathy, cervical region (8) Hyperlipidemia Current Visit: Yes Status: Chronic Plan: Will continue the medication. Qualifiers: Hyperlipidemia type: unspecified Qualified Code(s): E78.5 - Hyperlipidemia , unspecified Discharge Plan: [facility] Plan to discharge in: 24 Hours Time Spent Managing Pts Care (In Minutes): 55
[2018-02-22] MEDS: ENOXAPARIN 40 MG/0.4 ML SQ SCH (18:31)
[2018-02-22] MEDS: ATORVASTATIN 20 MG TAB PO SCH (20:06)
--- NOTE | 2018-02-22 21:25 | PN ---
Date of Progress Note: 02/22/2018 Reason: Stroke, myelopathy. Interval History: Brain MRI confirms subacute right basal ganglia infarction. The patient has the B B removed. He has significant cervical spine stenosis as well. I think the patient should either go to inpatient rehab or go to some facility that has structured PT and OT, recover as best he can from this event, and then be evaluated by a spine surgeon for decompression. He probably needs a wide ce rvical laminectomy. Physical Examination: Vital Signs: He is afebrile. Vitals are stable. General: Awake, alert, oriented. Neurologic: Cranial nerves are unremarkable. Four extremity weakness, worse on the left persists. Reflex is brisk at the knees. Tone increased in the legs. Toes bilaterally upgoing. [place] on the left. Pertinent Labs: Imaging as noted. Impression: 1.Subacute infarct, right middle cerebral artery branch, basal ganglia. 2.Cervical myelopathy. Plan: As noted. We will continue to follow with you. ELLIE/JOSE MANUEL Voice ID: [id number] Report ID: [id number]
[2018-02-23 05:19] LABS: Absolute Lymphocytes (CBC) 1.4 K/uL (0.7-4.9); Absolute Monocytes 0.5 K/uL (0.1-1.3); Absolute Neutrophil 2.7 K/uL (1.8-8.0); Basophils % 1.8 % (0-1.3); Eosinophils % 3.3 % (0-4.4); Hematocrit 32.7 % (39.6-49.0); Lymphocytes % 28.9 % (15.3-44.8); MCH 30.5 pg (27.0-35.0); MPV 7.8 fL (7.6-11.3); Monocytes % 10.9 % (3.3-12.3)
[2018-02-23 05:53] LABS: BUN Blood Urea Nitrogen 14 mg/dL (6-20); Bicarbonate 26 mEq/L (21-31); Glucose Level 77 mg/dL (65-120); Magnesium 1.8 mg/dL (1.8-2.5); Potassium 3.9 mEq/L (3.6-5.0); Sodium Level 138 mEq/L (135-145)
[2018-02-23] MEDS: NA CHLORIDE 0.9% 1,000 ML IV SCH ×2 (05:58→21:21)
[2018-02-23 06:16] VITALS: BMI 30.9
[2018-02-23] MEDS ORDERED: KCL 20 MEQ/100 mL IVPB 20 MEQ/100 ML BAG IV SCH (07:30)
[2018-02-23] MEDS ORDERED: MAGNESIUM SULFATE 1 gm IVPB 1 GM/100 ML BAG IV ONE (07:30)
[2018-02-23] MEDS ORDERED: POTASSIUM 25 MEQ EFFERV TAB PO ONE (08:29)
[2018-02-23] MEDS: CEFTRIAXONE/SWI 1gm 1 GM/10 ML SYR IV SCH (08:58)
[2018-02-23] MEDS: CLOPIDOGREL 75 MG TABLET PO SCH (08:58)
[2018-02-23] MEDS: VALSARTAN 160 MG TAB PO SCH ×2 (08:58→21:21)
[2018-02-23] MEDS: ASPIRIN EC 81 MG TAB PO SCH (08:58)
[2018-02-23] MEDS: ENOXAPARIN 40 MG/0.4 ML SQ SCH (17:00)
--- NOTE | 2018-02-23 17:42 | P.PN ---
Subjective Date of Service: 02/23/18 Primary Care Provider: none Chief Complaint: Subacute infarct Subjective: Improving Review of Systems 10-point ROS is otherwise unremarkable Physical Examination - Vital Signs Temperature: 98.2 F Blood Pressure: 179/88 Pulse: 67 Respirations: 18 Pulse Ox (%): 100 - Physical Exam General: Alert, In no apparent distress, Oriented x3 HEENT: Atraumatic, Normocephalic, PERRLA Neck: Supple, JVD not distended, No Thyromegaly, No LAD Respiratory: Clear to auscultation bilaterally, Normal air movement Cardiovascular: No edema, Normal pulses, Regular rate/rhythm, Normal S1 S2, Abnormal S3 Gastrointestinal: Normal bowel sounds, Soft and benign, Non-distended, W/out hepatosplenomegaly, No ascites, No tenderness, No masses, No rebound, No guarding Musculoskeletal: No clubbing, No swelling, No contractures, No erythema, No tenderness, No warmth Neurological: Normal tone, Sensation intact, Abnormal strength - Studies Medications List Reviewed: Yes Assessment And Plan - Current Problems (Diagnosis) (1) Acute CVA (cerebrovascular accident) Onset Date: 02/22/18 Current Visit: Yes Status: Acute Plan: MRI of C-spine shows spondylosis most marked at C5-6 resulting in marked central and bilateral foraminal stenosis. Spondylosis to the C3-4, C4-5 and C6- 7 resulting in moderate to marked central and foraminal stenosis. Abnormal signal involving the spinal cord from C3 to C7 likely representing myelomalacia. neurology on board [facility] for continued rehabilitation recommended before possible intervention by Neurosurgery and Pain management. Patient agreeable to this. social psychologist to assist with halfway placement. (2) Cervical myelopathy with cervical radiculopathy Current Visit: Yes Status: Acute (3) HTN (hypertension) Current Visit: Yes Status: Chronic Plan: continue home medications Qualifiers: Hypertension type: essential hypertension Qualified Code(s): I10 - Essential (primary) hypertension (4) Hyperlipidemia Current Visit: Yes Status: Chronic Plan: on statin. will continue Qualifiers: Hyperlipidemia type: unspecified Qualified Code(s): E78.5 - Hyperlipidemia , unspecified (5) Bacteremia Current Visit: No Status: Chronic Plan: On February 04, 2018 blood cultures were positive for Neisseria. Patient reports that he was not treated for this as the results came after he was hospitalized. Repeat blood cultures still negative. repeat blood cultures ordered yesterday, pending at this time Will continue to cover with IV antibiotic therapy. (6) BPH (benign prostatic hyperplasia) Current Visit: No Status: Suspected Qualifiers: Lower urinary tract symptom presence: symptoms present Lower urinary tract symptom detail: straining on urination Qualified Code(s): N40.1 - Benign prostatic hyperplasia with lower urinary tract symptoms; R39.16 - Straining to void; R39.16 - Straining to void
[2018-02-23] MEDS: ACETAMINOPHEN 500 MG TAB PO PRN (17:55)
[2018-02-23] MEDS: ATORVASTATIN 80 MG TAB PO SCH (21:21)
[2018-02-24 05:58] LABS: Absolute Lymphocytes (CBC) 1.3 K/uL (0.7-4.9); Absolute Monocytes 0.5 K/uL (0.1-1.3); Absolute Neutrophil 2.8 K/uL (1.8-8.0); Basophils % 0.8 % (0-1.3); Hematocrit 31.9 % (39.6-49.0); Lymphocytes % 27.5 % (15.3-44.8); MCH 30.6 pg (27.0-35.0); MCV 84.2 fL (80-100); MPV 7.8 fL (7.6-11.3); Monocytes % 11.1 % (3.3-12.3); RBC Red Blood Cell Count 3.79 M/uL (4.33-5.43)
[2018-02-24 06:09] LABS: Magnesium 1.9 mg/dL (1.8-2.5); Potassium 3.7 mEq/L (3.6-5.0)
[2018-02-24] MEDS ORDERED: POTASSIUM 25 MEQ EFFERV TAB PO ONE (06:12)
[2018-02-24] MEDS: ACETAMINOPHEN 500 MG TAB PO PRN ×2 (06:42→17:01)
[2018-02-24] MEDS: NA CHLORIDE 0.9% 1,000 ML IV SCH (10:09)
[2018-02-24] MEDS: CLOPIDOGREL 75 MG TABLET PO SCH (10:10)
[2018-02-24] MEDS: ASPIRIN EC 81 MG TAB PO SCH (10:10)
[2018-02-24] MEDS: VALSARTAN 160 MG TAB PO SCH ×2 (10:10→20:24)
[2018-02-24] MEDS: CEFTRIAXONE/SWI 1gm 1 GM/10 ML SYR IV SCH (10:10)
--- NOTE | 2018-02-24 11:56 | P.PN ---
Subjective Date of Service: 02/24/18 Primary Care Provider: none Chief Complaint: Subacute infarct Subjective: No new changes, Improving Review of Systems 10-point ROS is otherwise unremarkable Physical Examination - Vital Signs Temperature: 97.5 F Blood Pressure: 137/78 Pulse: 62 Respirations: 16 Pulse Ox (%): 98 - Physical Exam General: Alert, In no apparent distress, Oriented x3 HEENT: Atraumatic, Normocephalic, PERRLA Neck: Supple, JVD not distended, No Thyromegaly, No LAD Respiratory: Clear to auscultation bilaterally, Normal air movement Cardiovascular: No edema, Normal pulses, Regular rate/rhythm, Normal S1 S2, No gallops, No rubs, No murmurs Gastrointestinal: Normal bowel sounds, Soft and benign, Non-distended, W/out hepatosplenomegaly Musculoskeletal: No clubbing, No swelling, No contractures, No erythema, No tenderness, No warmth Integumentary: No rashes, No breakdown Neurological: Normal strength at 5/5 x4 extr - Studies Medications List Reviewed: Yes Assessment And Plan - Current Problems (Diagnosis) (1) Acute CVA (cerebrovascular accident) Onset Date: 02/22/18 Current Visit: Yes Status: Acute Plan: MRI of C-spine shows spondylosis most marked at C5-6 resulting in marked central and bilateral foraminal stenosis. Spondylosis to the C3-4, C4-5 and C6- 7 resulting in moderate to marked central and foraminal stenosis. Abnormal signal involving the spinal cord from C3 to C7 likely representing myelomalacia. neurology on board [facility] for continued rehabilitation recommended before possible intervention by Neurosurgery and Pain management. Patient agreeable to this. criminal justice social worker to assist with [facility] placement. (2) Cervical myelopathy with cervical radiculopathy Current Visit: Yes Status: Acute (3) HTN (hypertension) Current Visit: Yes Status: Chronic Plan: continue home medications Qualifiers: Hypertension type: essential hypertension Qualified Code(s): I10 - Essential (primary) hypertension (4) Hyperlipidemia Current Visit: Yes Status: Chronic Plan: on statin. will continue Qualifiers: Hyperlipidemia type: unspecified Qualified Code(s): E78.5 - Hyperlipidemia , unspecified (5) Bacteremia Current Visit: No Status: Chronic Plan: On February 04, 2018 blood cultures were positive for Neisseria. Patient reports that he was not treated for this as the results came after he was hospitalized. Repeat blood cultures still negative. repeat blood cultures ordered yesterday, pending at this time Will continue to cover with IV antibiotic therapy. (6) BPH (benign prostatic hyperplasia) Current Visit: No Status: Suspected Qualifiers: Lower urinary tract symptom presence: symptoms present Lower urinary tract symptom detail: straining on urination Qualified Code(s): N40.1 - Benign prostatic hyperplasia with lower urinary tract symptoms; R39.16 - Straining to void; R39.16 - Straining to void
[2018-02-24] MEDS: ENOXAPARIN 40 MG/0.4 ML SQ SCH (17:02)
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
[2018-02-24] MEDS: ATORVASTATIN 80 MG TAB PO SCH (20:24)
[2018-02-24 20:26] VITALS: BP 162/92
[2018-02-24 21:27] VITALS: TEMP 98
== END 2018-02-24 22:40 | DRG 65 ==
LOC: ER 15:43 → OBSVTOIN 21:46 → ERHOLD 21:46 → 2ND 22:22
PROVIDERS: ADMIT Hospitalist; ATTEND Hospitalist
PROC: 0HC1XZZ Extirpation of Matter from Face Skin, External Approach (ICD-10-PCS; principal; 2018-02-21)
DX: I63.9 Cerebral infarction, unspecified (principal); R78.81 Bacteremia; M47.12 Other spondylosis with myelopathy, cervical region; I10 Essential (primary) hypertension; E78.5 Hyperlipidemia, unspecified; N40.1 Benign prostatic hyperplasia with lower urinary tract symptoms; R39.16 Straining to void; Z59.0 Homelessness; M47.22 Other spondylosis with radiculopathy, cervical region; M48.02 Spinal stenosis, cervical region; E86.0 Dehydration; M79.5 Residual foreign body in soft tissue; Z86.73 Personal history of transient ischemic attack (TIA), and cerebral infarction without residual deficits; F17.210 Nicotine dependence, cigarettes, uncomplicated
CPT/HCPCS: 36415; 70450; 70544; 70549; 70553; 71045; 71046; 72141; 80048; 80053; 80061; 80076; 81003; 82550; 82553; 82607; 83036; 83735; 83880; 84100; 84145; 84443; 85025; 85610; 85730; 87040; 88300; 93005; 93306; 93880; 96374; 97163; 99285; A9577; J0696; J1650; J3475; J7030

== ENCOUNTER 2018-02-24 16:32 | Inpatient (IN) | payer OTHER ==
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
[2018-02-24] MEDS ORDERED: MAGNESIUM HYDROXIDE 8% 30 ML PO PRN (23:50)
[2018-02-25 00:07] VITALS: BMI 30.3
[2018-02-25] MEDS ORDERED: ONDANSETRON 4 MG/2 ML VIAL IV PRN (01:13)
[2018-02-25 01:59] LABS: Urine Appearance CLEAR; Urine Bilirubin NEGATIVE (NEG); Urine Blood NEGATIVE (NEG); Urine Color YELLOW; Urine Glucose NEGATIVE (NEG); Urine Protein TRACE (NEG); Urine Urobilinogen 0.2 mg/dL (0.2-1.0)
[2018-02-25] MEDS ORDERED: CEFTRIAXONE 1 GM/NS 50 ML 1 GM/50 ML BAG IV SCH ×2 (02:00→09:00)
[2018-02-25 03:22] LABS: Urine Bacteria <20 /HPF (NONE SEEN); Urine Culture Reflex Order NOT NEEDED; Urine RBC <5 /HPF (NONE SEEN)
--- NOTE | 2018-02-25 04:21 | FAST ---
SHIFT START DATE/TIME: 02/24/2018 19:00 (CDT) SHIFT END DATE/TIME: 02/25/2018 07:00 (CDT) NAME JAIRO GERMAIN DATE OF : 1955 DATE OF ADMISSION: 02/24/2018 23:45 (CDT) PHONE: AGE: 62 [facility]# [id number] GENDER: Male ENCOUNTER PHYSICIAN: Dr. Edilson Fritz M.D. ADMISSION DIAGNOSIS: - Stroke 01 - Left Body (Right Brain) (01.1) Sub acute basal ganglia infarct. EATING: Activity did not occur on this shift EATING - SCORE: 0-UNK GROOMING: Activity did not occur on this shift GROOMING - SCORE: 0-UNK BATHING: Activity did not occur on this shift BATHING - SCORE: 0-UNK DRESSING - UPPER BODY: Patient is not dressing in public clothing ARTICLES SCORE Total number of steps: 0 DRESSING - UPPER BODY - SCORE: 0-UNK DRESSING - LOWER BODY: Patient is not dressing in public clothing ARTICLES SCORE Total number of steps: 0 DRESSING - LOWER BODY - SCORE: 0-UNK TOILETING: TOILETING - STEP 1: Does the patient require assistance with toileting? Yes. TOILETING - STEP 2: Does the patient require the assistance of a helper? Yes. TOILETING - STEP 3: How much assistance does the patient require from the helper? Hands-on assistance from the helper TOILETING - STEP 4: Of the 3 tasks: 1) Adjusting clothing prior to use, 2) Cleansing of perineal area, 3) Adjusting clot bernard after use; How many tasks does the patient perform WITHOUT assistance of the helper? Three tasks with steadying assistance from the helper TOILETING - SCORE: 4-MIN BLADDER MANAGEMENT: BLADDER MANAGEMENT - STEP 1: Does the patient control the bladder completely and intentionally without equipment or devices or med ications, and is always continent? No. BLADDER MANAGEMENT - STEP 2: Does the patient require the assistance of a helper? Yes. BLADDER MANAGEMENT - STEP 3: How much assistance does the patient require from the helper? Only set-up of equipment - such as plac ing it within reach of the patient or emptying a device - to maintain either satisfactory voiding pat tern or managing an external device, such as an absorbent pad, ileal device, or catheter BLADDER MANAGEMENT - SCORE: 5-SUP BOWEL MANAGEMENT: Activity did not occur on this shift BOWEL MANAGEMENT - SCORE: 7-IND TRANSFERS: BED, CHAIR, WHEELCHAIR: TRANSFERS: BED, CHAIR, WHEELCHAIR - STEP 1: Does the patient require assistance with bed, chair, or wheelchair transfers? Yes. TRANSFERS: BED, CHAIR, WHEELCHAIR - STEP 2: Does the patient require the assistance of a helper? Yes. TRANSFERS: BED, CHAIR, WHEELCHAIR - STEP 3: How much assistance does the patient require from the helper? Steadying/guiding assistance TRANSFERS: BED, CHAIR, WHEELCHAIR - SCORE: 4-MIN TRANSFERS: TOILET: Activity did not occur on this shift TRANSFERS: TOILET - SCORE: 0-UNK TRANSFERS: SHOWER: Activity did not occur on this shift TRANSFERS: SHOWER - SCORE: 0-UNK TRANSFERS: TUB: Activity did not occur on this shift TRANSFERS: TUB - SCORE: 0-UNK LOCOMOTION: WALK: Activity did not occur on this shift LOCOMOTION: WALK - SCORE: 0-UNK LOCOMOTION: WHEELCHAIR: Activity did not occur on this shift LOCOMOTION: WHEELCHAIR - SCORE: 0-UNK COMPREHENSION: COMPREHENSION - STEP 1: Does the patient require help to understand complex and abstract ideas (such as current events, finan gino, discharge planning, medical issues, relationships, etc)? No. COMPREHENSION - STEP 2: Does the patient need extra time, require an assistive device (such as glasses, hearing aids, or an a ugmentative communication system), OR does s/he have mild difficulty expressing complex and abstract ideas (including mild dysarthria or mild word-finding problems)? Yes. COMPREHENSION - SCORE: 6-CLAUDIO EXPRESSION EXPRESSION - STEP 1: Does the patient require help expressing complex and abstract ideas (such as current events, finances , discharge planning, medical issues, relationships, etc)? No. EXPRESSION - STEP 2: Does the patient need extra time, require an assistive device (such as augmentive communication syste m or a communication board), OR does s/he have mild difficulty expressing complex and abstract ideas (including mild dysarthria or mild word-find problems)? No. EXPRESSION - SCORE: 7-IND SOCIAL INTERACTION: SOCIAL INTERACTION - STEP 1: Does the patient require a helper to interact with others in social and therapeutic situations? No. SOCIAL INTERACTION - STEP 2: Does the patient need extra time in social situations, OR does s/he interact with staff, other patien ts, and family members ONLY in structured environments, OR does s/he require medication for social in teraction? No. SOCIAL INTERACTION - SCORE: 7-IND PROBLEM SOLVING: PROBLEM SOLVING - STEP 1: Does the patient need help to solve complex problems such as managing a checking account or confronti ng interpersonal problems? No. PROBLEM SOLVING - STEP 2: Does the patient require extra time to make decisions or solve problems, OR does s/he have slight dif ficulty reading, initiating, or self-correcting in unfamiliar situations? Yes, patient needs extra ti me. PROBLEM SOLVING - SCORE: 6-CLAUDIO MEMORY: MEMORY - STEP 1: Does the patient need help to remember frequently encountered people, daily routines, and executing r equests? No. MEMORY - STEP 2: Does the patient have slight difficulty recognizing frequently encountered people, daily routines, or executing requests without the need for repetition or using self-initiated or environmental cues to remember? Yes. MEMORY - SCORE: 6-CLAUDIO SIGNATURE PANEL: The following modified sections: Eating - Score, Grooming - Score, Dressing - Upper Body - Score, Chun ssing - Lower Body - Score, Toileting - Score, Bladder Management - Score, Bowel Management - Score, Transfers: Bed, Chair, Wheelchair - Score, Transfers: Toilet - Score, Transfers: Shower - Score, Mcclellan sfers: Tub - Score, Locomotion: Walk - Score, Locomotion: Wheelchair - Score, Comprehension - Score, Expression - Score, Social Interaction - Score, Problem Solving - Score, Memory - Score were [electro nically] signed by Dominga Perez CNA on ThuFeb 25 2018 03:23:31 GMT-0500 (Central Daylight Time)
[2018-02-25 06:12] LABS: Absolute Lymphocytes (CBC) 1.5 K/uL (0.7-4.9); Absolute Monocytes 0.7 K/uL (0.1-1.3); Absolute Neutrophil 3.9 K/uL (1.8-8.0); Basophils % 0.9 % (0-1.3); Eosinophils % 2.6 % (0-4.4); Hematocrit 32.3 % (39.6-49.0); Lymphocytes % 23.4 % (15.3-44.8); MCH 30.6 pg (27.0-35.0); MCV 85.1 fL (80-100); MPV 7.9 fL (7.6-11.3); Monocytes % 10.8 % (3.3-12.3); RBC Red Blood Cell Count 3.79 M/uL (4.33-5.43)
[2018-02-25 06:20] LABS: Albumin 3.6 g/dL (3.2-5.5); Magnesium 1.8 mg/dL (1.8-2.5); Prealbumin 24.8 mg/dl (18-38)
[2018-02-25] MEDS ORDERED: ENOXAPARIN 40 MG/0.4 ML SQ SCH (08:00)
[2018-02-25] MEDS: VALSARTAN 160 MG TAB PO SCH ×2 (08:28→19:43)
[2018-02-25] MEDS: ASPIRIN EC 81 MG TAB PO SCH (08:28)
[2018-02-25] MEDS: CLOPIDOGREL 75 MG TABLET PO SCH (08:28)
[2018-02-25] MEDS ORDERED: CEFTRIAXONE/SWI 1gm 1 GM/10 ML SYR IV SCH (09:00)
[2018-02-25] MEDS: ACETAMINOPHEN 500 MG TAB PO PRN ×2 (10:39→19:43)
--- NOTE | 2018-02-25 16:29 | FAST ---
SHIFT START DATE/TIME: 02/25/2018 07:00 (CDT) SHIFT END DATE/TIME: 02/25/2018 19:00 (CDT) NAME JAIRO GERMAIN DATE OF : 1955 DATE OF ADMISSION: 02/24/2018 23:45 (CDT) PHONE: AGE: 62 [facility]# [id number] GENDER: Male ENCOUNTER PHYSICIAN: Dr. Edilson Fritz M.D. ADMISSION DIAGNOSIS: - Stroke 01 - Left Body (Right Brain) (01.1) Sub acute basal ganglia infarct. EATING: EATING - STEP 1: Does the patient require assistance when eating? Yes. EATING - STEP 2: Does the patient require the assistance of a helper? Yes. EATING - STEP 3: Does the patient perform half or more of the eating tasks? Yes. EATING - STEP 4: Does the patient need only supervision, cuing, coaxing OR help to apply an orthosis OR help to cut fo od, open containers, pour liquids, or butter bread? Yes. EATING - SCORE: 5-SUP GROOMING: Comb/brush hair Oral care Wash, rinse, and dry face Wash, rinse, and dry hands GROOMING - STEP 1: Does the patient require assistance when grooming? Yes. GROOMING - STEP 2: Does the patient require the assistance of a helper? Yes. GROOMING - STEP 3: How much assistance does the patient require from the helper? Only prior equipment preparation/set up from the helper GROOMING - SCORE: 5-SUP BATHING: Activity did not occur on this shift BATHING - SCORE: 0-UNK DRESSING - UPPER BODY: Activity did not occur on this shift ARTICLES SCORE Total number of steps: 0 DRESSING - UPPER BODY - SCORE: 0-UNK DRESSING - LOWER BODY: Activity did not occur on this shift ARTICLES SCORE Total number of steps: 0 DRESSING - LOWER BODY - SCORE: 0-UNK TOILETING: TOILETING - STEP 1: Does the patient require assistance with toileting? Yes. TOILETING - STEP 2: Does the patient require the assistance of a helper? Yes. TOILETING - STEP 3: How much assistance does the patient require from the helper? Hands-on assistance from the helper TOILETING - STEP 4: Of the 3 tasks: 1) Adjusting clothing prior to use, 2) Cleansing of perineal area, 3) Adjusting clot bernard after use; How many tasks does the patient perform WITHOUT assistance of the helper? Three tasks with steadying assistance from the helper TOILETING - SCORE: 4-MIN BLADDER MANAGEMENT: BLADDER MANAGEMENT - STEP 1: Does the patient control the bladder completely and intentionally without equipment or devices or med ications, and is always continent? No. BLADDER MANAGEMENT - STEP 2: Does the patient require the assistance of a helper? Yes. BLADDER MANAGEMENT - STEP 3: How much assistance does the patient require from the helper? Only supervision, stand-by, cuing, or c oaxing BLADDER MANAGEMENT - SCORE: 5-SUP BLADDER MANAGEMENT - FREQUENCY OF ACCIDENTS: BLADDER MANAGEMENT(FA) - STEP 1: How many accidents has the patient had during the current shift? 0 BOWEL MANAGEMENT: Activity did not occur on this shift BOWEL MANAGEMENT - SCORE: 7-IND BOWEL MANAGEMENT - FREQUENCY OF ACCIDENTS: BOWEL MANAGEMENT(FA) - STEP 1: How many accidents has the patient had during the current shift? 0 TRANSFERS: BED, CHAIR, WHEELCHAIR: TRANSFERS: BED, CHAIR, WHEELCHAIR - STEP 1: Does the patient require assistance with bed, chair, or wheelchair transfers? Yes. TRANSFERS: BED, CHAIR, WHEELCHAIR - STEP 2: Does the patient require the assistance of a helper? Yes. TRANSFERS: BED, CHAIR, WHEELCHAIR - STEP 3: How much assistance does the patient require from the helper? Steadying/guiding assistance TRANSFERS: BED, CHAIR, WHEELCHAIR - SCORE: 4-MIN TRANSFERS: TOILET: TRANSFERS: TOILET - STEP 1: Does the patient require assistance with toilet transfers? Yes. TRANSFERS: TOILET - STEP 2: Does the patient require the assistance of a helper? Yes. TRANSFERS: TOILET - STEP 3: How much assistance does the patient require from the helper? Patient performs half or more of the tr ansferring tasks TRANSFERS: TOILET - STEP 4: Does the patient need only incidental help such as contact guard or steadying during toilet transfer? Yes. TRANSFERS: TOILET - SCORE: 4-MIN TRANSFERS: SHOWER: Activity did not occur on this shift TRANSFERS: SHOWER - SCORE: 0-UNK TRANSFERS: TUB: Activity did not occur on this shift TRANSFERS: TUB - SCORE: 0-UNK LOCOMOTION: WALK: Activity did not occur on this shift LOCOMOTION: WALK - SCORE: 0-UNK LOCOMOTION: WHEELCHAIR: LOCOMOTION: WHEELCHAIR - STEP 1: Does the patient need help to go 150 feet in a wheelchair? Yes. LOCOMOTION: WHEELCHAIR - STEP 2: How much assistance does the patient need from the helper? Only supervision, cuing, or coaxing LOCOMOTION: WHEELCHAIR - SCORE: 5-SUP COMPREHENSION: COMPREHENSION: TYPE: Both COMPREHENSION - STEP 1: Does the patient require help to understand complex and abstract ideas (such as current events, finan gino, discharge planning, medical issues, relationships, etc)? No. COMPREHENSION - STEP 2: Does the patient need extra time, require an assistive device (such as glasses, hearing aids, or an a ugmentative communication system), OR does s/he have mild difficulty expressing complex and abstract ideas (including mild dysarthria or mild word-finding problems)? Yes. COMPREHENSION - SCORE: 6-CLAUDIO EXPRESSION EXPRESSION: TYPE: Both EXPRESSION - STEP 1: Does the patient require help expressing complex and abstract ideas (such as current events, finances , discharge planning, medical issues, relationships, etc)? No. EXPRESSION - STEP 2: Does the patient need extra time, require an assistive device (such as augmentive communication syste m or a communication board), OR does s/he have mild difficulty expressing complex and abstract ideas (including mild dysarthria or mild word-find problems)? Yes. EXPRESSION - SCORE: 6-CLAUDIO SOCIAL INTERACTION: SOCIAL INTERACTION - STEP 1: Does the patient require a helper to interact with others in social and therapeutic situations? No. SOCIAL INTERACTION - STEP 2: Does the patient need extra time in social situations, OR does s/he interact with staff, other patien ts, and family members ONLY in structured environments, OR does s/he require medication for social in teraction? Yes, patient needs extra time SOCIAL INTERACTION - SCORE: 6-CLAUDIO PROBLEM SOLVING: PROBLEM SOLVING - STEP 1: Does the patient need help to solve complex problems such as managing a checking account or confronti ng interpersonal problems? No. PROBLEM SOLVING - STEP 2: Does the patient require extra time to make decisions or solve problems, OR does s/he have slight dif ficulty reading, initiating, or self-correcting in unfamiliar situations? Yes, patient needs extra ti me. PROBLEM SOLVING - SCORE: 6-CLAUDIO MEMORY: MEMORY - STEP 1: Does the patient need help to remember frequently encountered people, daily routines, and executing r equests? No. MEMORY - STEP 2: Does the patient have slight difficulty recognizing frequently encountered people, daily routines, or executing requests without the need for repetition or using self-initiated or environmental cues to remember? Yes. MEMORY - SCORE: 6-CLAUDIO SIGNATURE PANEL: The following modified sections: Eating - Score, Grooming - Score, Bathing - Score, Dressing - Upper Body - Score, Dressing - Lower Body - Score, Toileting - Score, Bladder Management - Score, Bowel Man agement - Score, Transfers: Bed, Chair, Wheelchair - Score, Transfers: Toilet - Score, Transfers: Luz Maria wer - Score, Transfers: Tub - Score, Locomotion: Walk - Score, Locomotion: Wheelchair - Score, Compre hension - Score, Expression - Score, Social Interaction - Score, Problem Solving - Score, Memory - Sc ore were [electronically] signed by Alesia Mujica C.N.A. on ThuFeb 25 2018 15:31:26 T-0500 (Centra [place] Daylight Time)
[2018-02-25] MEDS: ENOXAPARIN 40 MG/0.4 ML SQ SCH (16:40)
--- NOTE | 2018-02-25 16:47 | FAST ---
ENCOUNTER DATE AND TIME: 02/25/2018 08:00 (CDT) NAME JAIRO GERMAIN DATE OF : 1955 DATE OF ADMISSION: 02/24/2018 23:45 (CDT) PHONE: AGE: 62 [facility]# [id number] GENDER: Male ENCOUNTER PHYSICIAN: Dr. Edilson Fritz M.D. ADMISSION DIAGNOSIS: - Stroke 01 - Left Body (Right Brain) (01.1) Sub acute basal ganglia infarct. EATING: Activity did not occur on this shift EATING - SCORE: 0-UNK GROOMING: Activity did not occur on this shift GROOMING - SCORE: 0-UNK BATHING: Activity did not occur on this shift BATHING - SCORE: 0-UNK DRESSING - UPPER BODY: Activity did not occur on this shift Patient is not dressing in public clothing ARTICLES SCORE Total number of steps: 0 DRESSING - UPPER BODY - SCORE: 0-UNK DRESSING - LOWER BODY: Activity did not occur on this shift Patient is not dressing in public clothing ARTICLES SCORE Total number of steps: 0 DRESSING - LOWER BODY - SCORE: 0-UNK TOILETING: Activity did not occur on this shift TOILETING - SCORE: 0-UNK BLADDER MANAGEMENT: Activity did not occur on this shift BLADDER MANAGEMENT - SCORE: 7-IND BOWEL MANAGEMENT: Activity did not occur on this shift BOWEL MANAGEMENT - SCORE: 7-IND TRANSFERS: BED, CHAIR, WHEELCHAIR: Activity did not occur on this shift TRANSFERS: BED, CHAIR, WHEELCHAIR - SCORE: 0-UNK TRANSFERS: TOILET: Activity did not occur on this shift TRANSFERS: TOILET - SCORE: 0-UNK TRANSFERS: SHOWER: Activity did not occur on this shift TRANSFERS: SHOWER - SCORE: 0-UNK TRANSFERS: TUB: Activity did not occur on this shift TRANSFERS: TUB - SCORE: 0-UNK LOCOMOTION: WALK: Activity did not occur on this shift LOCOMOTION: WALK - SCORE: 0-UNK LOCOMOTION: WHEELCHAIR: Activity did not occur on this shift LOCOMOTION: WHEELCHAIR - SCORE: 0-UNK LOCOMOTION: STAIRS: Activity did not occur on this shift LOCOMOTION: STAIRS - SCORE: 0-UNK COMPREHENSION: COMPREHENSION - STEP 1: Does the patient require help to understand complex and abstract ideas (such as current events, finan gino, discharge planning, medical issues, relationships, etc)? No. COMPREHENSION - STEP 2: Does the patient need extra time, require an assistive device (such as glasses, hearing aids, or an a ugmentative communication system), OR does s/he have mild difficulty expressing complex and abstract ideas (including mild dysarthria or mild word-finding problems)? No. COMPREHENSION - SCORE: 7-IND EXPRESSION EXPRESSION - STEP 1: Does the patient require help expressing complex and abstract ideas (such as current events, finances , discharge planning, medical issues, relationships, etc)? No. EXPRESSION - STEP 2: Does the patient need extra time, require an assistive device (such as augmentive communication syste m or a communication board), OR does s/he have mild difficulty expressing complex and abstract ideas (including mild dysarthria or mild word-find problems)? No. EXPRESSION - SCORE: 7-IND SOCIAL INTERACTION: SOCIAL INTERACTION - STEP 1: Does the patient require a helper to interact with others in social and therapeutic situations? No. SOCIAL INTERACTION - STEP 2: Does the patient need extra time in social situations, OR does s/he interact with staff, other patien ts, and family members ONLY in structured environments, OR does s/he require medication for social in teraction? No. SOCIAL INTERACTION - SCORE: 7-IND PROBLEM SOLVING: PROBLEM SOLVING - STEP 1: Does the patient need help to solve complex problems such as managing a checking account or confronti ng interpersonal problems? No. PROBLEM SOLVING - STEP 2: Does the patient require extra time to make decisions or solve problems, OR does s/he have slight dif ficulty reading, initiating, or self-correcting in unfamiliar situations? Yes, patient has slight dif ficulty reading, initiating, or self-correcting in unfamiliar situations. PROBLEM SOLVING - SCORE: 6-CLAUDIO MEMORY: MEMORY - STEP 1: Does the patient need help to remember frequently encountered people, daily routines, and executing r equests? No. MEMORY - STEP 2: Does the patient have slight difficulty recognizing frequently encountered people, daily routines, or executing requests without the need for repetition or using self-initiated or environmental cues to remember? No. MEMORY - SCORE: 7-IND SIGNATURE PANEL: The following modified sections: Comprehension - Score, Expression - Score, Social Interaction - Scor e, Problem Solving - Score, Memory - Score were [electronically] signed by MILLIE Kim on Claudine 2017 15:49:02 GMT-0500 (Central Daylight Time)
--- NOTE | 2018-02-25 17:45 | FAST ---
ENCOUNTER DATE AND TIME: 02/25/2018 08:00 (CDT) NAME JAIRO GERMAIN DATE OF : 1955 DATE OF ADMISSION: 02/24/2018 23:45 (CDT) PHONE: AGE: 62 [facility]# [id number] GENDER: Male ENCOUNTER PHYSICIAN: Dr. Edilson Fritz M.D. ADMISSION DIAGNOSIS: - Stroke 01 - Left Body (Right Brain) (01.1) Sub acute basal ganglia infarct. EATING: Activity did not occur on this shift EATING - SCORE: 0-UNK GROOMING: Activity did not occur on this shift GROOMING - SCORE: 0-UNK BATHING: Activity did not occur on this shift BATHING - SCORE: 0-UNK DRESSING - UPPER BODY: Activity did not occur on this shift Patient is not dressing in public clothing ARTICLES SCORE Total number of steps: 0 DRESSING - UPPER BODY - SCORE: 0-UNK DRESSING - LOWER BODY: Activity did not occur on this shift Patient is not dressing in public clothing ARTICLES SCORE Total number of steps: 0 DRESSING - LOWER BODY - SCORE: 0-UNK TOILETING: Activity did not occur on this shift TOILETING - SCORE: 0-UNK BLADDER MANAGEMENT: Activity did not occur on this shift BLADDER MANAGEMENT - SCORE: 7-IND BOWEL MANAGEMENT: Activity did not occur on this shift BOWEL MANAGEMENT - SCORE: 7-IND TRANSFERS: BED, CHAIR, WHEELCHAIR: TRANSFERS: BED, CHAIR, WHEELCHAIR - STEP 1: Does the patient require assistance with bed, chair, or wheelchair transfers? Yes. TRANSFERS: BED, CHAIR, WHEELCHAIR - STEP 2: Does the patient require the assistance of a helper? Yes. TRANSFERS: BED, CHAIR, WHEELCHAIR - STEP 3: How much assistance does the patient require from the helper? Lifting of the patient TRANSFERS: BED, CHAIR, WHEELCHAIR - STEP 4: Does the helper lift the patient ONLY up? ONLY down? Up AND Down? ONLY up. TRANSFERS: BED, CHAIR, WHEELCHAIR - SCORE: 3-MOD TRANSFERS: TOILET: Activity did not occur on this shift TRANSFERS: TOILET - SCORE: 0-UNK TRANSFERS: SHOWER: Activity did not occur on this shift TRANSFERS: SHOWER - SCORE: 0-UNK TRANSFERS: TUB: Activity did not occur on this shift TRANSFERS: TUB - SCORE: 0-UNK LOCOMOTION: WALK: LOCOMOTION: WALK - STEP 1: Does the patient need help to walk 150 feet? Yes. LOCOMOTION: WALK - STEP 2: How much assistance does the patient require to walk a minimum of 150 feet? Patient walks less than 1 50 feet - but more than 50 feet - with the assistance of only one helper LOCOMOTION: WALK - SCORE: 2-MAX LOCOMOTION: WHEELCHAIR: LOCOMOTION: WHEELCHAIR - STEP 1: Does the patient need help to go 150 feet in a wheelchair? Yes. LOCOMOTION: WHEELCHAIR - STEP 2: How much assistance does the patient need from the helper? Patient goes less than 150 feet - but more than 50 feet - with the assistance of only one helper LOCOMOTION: WHEELCHAIR - SCORE: 2-MAX LOCOMOTION: STAIRS: Activity did not occur on this shift LOCOMOTION: STAIRS - SCORE: 0-UNK COMPREHENSION: COMPREHENSION - SCORE: 0-UNK EXPRESSION EXPRESSION - SCORE: 0-UNK SOCIAL INTERACTION: SOCIAL INTERACTION - SCORE: 0-UNK PROBLEM SOLVING: PROBLEM SOLVING - SCORE: 0-UNK MEMORY: MEMORY - SCORE: 0-UNK SIGNATURE PANEL: The following modified sections: Transfers: Bed, Chair, Wheelchair - Score, Transfers: Toilet - Score , Locomotion: Walk - Score, Locomotion: Wheelchair - Score, Locomotion: Stairs - Score were [electron ically] signed by Jhonny Kahn PT on ThuFeb 25 2018 16:47:08 T-0500 (Central Daylight Time)
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
--- NOTE | 2018-02-25 19:57 | PAPE ---
PATIENT: [facility] MR# [id number] REFERRING DOCTOR nabeel Allred EVALUATION DATE AND TIME 02/25/2018 18:57 (CDT) NAME JAIRO GERMAIN DATE OF 1955 AGE 62 PHONE N# [id number] GENDER male EVALUATING PHYSICIAN Dr. Edilson Fritz M.D. ADMISSION DIAGNOSIS: Sub acute basal ganglia infarct ONSET DATE 02/19/2018 SECONDARY/COMORBID DIAGNOSES TIERED: - N/A CVA, HTN, bilateral knee pain, cervical myelopathy w/ cervical radiculopathy, hyperlipidemia, bactere miguel, BPH POST-ADMISSION FUNCTIONAL/MEDICAL STATUS: - Bladder Same accident frequency: Ind - No accidents in the past 7 days - Bowel Same accident frequency: Ind - No accidents in the past 7 days - Walking Same score based on distance walked: 3(>=150ft) - Wheelchair Same score based on distance traveled: 0(N/A) STATUS CHANGE EVALUATION: No change in Functional or Medical Status is identified compared with Pre-Admission screening. PATIENT NEEDS CLOSE MEDICAL SUPERVISION BY A REHABILITATION PHYSICIAN FOR: Bowel and Bladder Management Coordination of Treatment Team Medical and Co-Morbidity Management Pain Management Wound Care PATIENT REQUIRES 24X7 REHAB NURSING FOR MEDICAL AND FUNCTIONAL MGT. OF THE FOLLOWING DEFICITS: ADL's Ambulation Bowel and Bladder Management Cognition Communication Disease Management Medication Management Pain Management Patient/Family Education Providing Safe Environment Skin Integrity Transfers PATIENT REQUIRES INTENSIVE, COORDINATED INTERDISCIPLINARY APPROACH TO REHAB: Arranging Home Equipment/Services Discharge Planning Family Intervention/Training National Insurance Officer/Case Management LIST OF IDENTIFIED AND POTENTIAL PROBLEMS: Alteration in leisure activities Bladder, Incontinence Bowel, Incontinence Falls, Actual or Potential Infection, Actual or Potential Mobility Impaired Pain, Alteration in Comfort Self Care Deficit Skin Integrity, Actual or Potential Urinary Tract Infection (UTI), Actual or Potential PATIENT COULD BE AT RISK FOR COMPLICATIONS FROM ADVERSE MEDICAL CONDITIONS DUE TO HIS/HER COMORBIDITI ES AND THE RIGORS OF THE INTENSIVE REHABILLITATION PROGRAM. METHODS OR INTERVENTIONS TO AVOID COMPLIC ATIONS INCLUDE: - Bleeding Assess lab values and manage abnormalities. Nursing to teach precautions for anti-coagulation therapy . Stroke patients assessed for lethargy or change in status. Wound to be assessed every shift. - Infection Clinical staff to assess and manage the signs and symptoms of infection including fever, redness, war mth, etc. - Urinary Tract Infection - Aspiration Clinical staff will assess and manage coughing, drooling, congestion. - Falls Patient will be evaluated for Fall Precautions and will be placed on Fall Precautions as indicated pe r protocol. - Skin Breakdown Nursing will assess skin daily using assessment tool and will place on Skin Breakdown Precautions as indicated per protocol. - Pain Clinical staff may employ non-medication methods such as massage, distraction, decrease stimulus, etc . as needed. Clinical staff will assess patient's pain level every shift per protocol to assess and e nsure pain management effectiveness. Medications will be given and the pain level re-assessed. PRELIMINARY PLAN OF CARE: - Physical Therapy Patient needs Physical Therapy for a daily minimum of 1.5 hours at least 5 out of 7 days, to improve: Mobility, Strengthening, Transfers, Stretching, ROM, Endurance, Ability to manage stairs, Gait, and Balance. - Speech Therapy Patient needs Speech Therapy for a daily minimum of 0.5 hours at least 5 out of 7 days, to improve: S wallowing, Cognition, Language Skills, and Compensatory Strategies. - Rehabilitation Nursing Patient requires 24x7 Rehabilitation Nursing for: Pain Issues, Identifying and preventing risk factor s, Monitoring and reporting current medical conditions, Assisting with ambulation and transfer, Torin ting with all ADL-s, Teaching patients about disease process and medications, Family teaching, Provid ing safe environment, Bowel and Bladder Issues, Skin Integrity, and Medication Management. Patient needs National Insurance Officer and/or Case Management for: Discharge Planning, Arranging Home Equipmen t or Services, and Family Interventions. - Dietary and Nutrition Services Patient needs Dietary and Nutrition Services for: Adequate Nutrition, Nutritional Supplements, and Nu tritional Education. - Occupational Therapy Patient needs Occupational Therapy for a daily minimum of 1.5 hours at least 5 out of 7 days, to impr ove Activities of Daily Living, including: Eating, Grooming, Bathing, Dressing, Toileting, Toilet Tra nsfers, Community Reintegration, Higher functional activities, Adaptive Equipment, Splinting, Househo ld Tasks, and Other activities as determined. POTENTIAL FUNCTIONAL GOALS FOR PATIENT TO ACHIEVE BY DISCHARGE: - Safety Precaution Patient will remain free from falls or injury at time of discharge. - Bed Mobility Patient will perform bed mobility at 4-Na level of assistance. - Transfers Patient will complete transfers from bed to chair at 4-Na level of assistance. - Mobility Patient will ambulate 150 ft with 4-Na level of assistance with RW. PATIENT REHAB POTENTIAL Expected level of measurable improvement will be of a practical value to patient's functional capacit y or adaptations to impairments Has a viable Discharge Plan Medically appropriate; condition is sufficiently stable to participate in intensive rehab program Patient is able and expected to receive 3 hours of individualized therapy daily on at least 5 of ever y 7 days Patient's prognosis for significant practical improvement within a reasonable period of time appears Good DISCHARGE PLAN: - Estimated Length of Stay (days) 17. - Consensus on plan Discharge plan has been discussed with primary caregiver. Patient/Family is in agreement with the babs n. Primary caregiver is in agreement with the plan. - Patient/Family Goals Return home with assistance. - Planned Living Setting Upon Discharge Home, to live with Family/Relatives. CONCLUSION ON REHABILITATION NECESSITY: I have evaluated patient's pre-admission functional status and, comparing it to the patient's post-ad mission functional status now, I conclude that the pre-admission assessment was accurate. Patient's c ondition on admission supports the medical necessity of admission to IR[facility]. It is safe to proceed with patient's therapy program. SIGNATURE PANEL: (CDT)
[2018-02-25] MEDS: ATORVASTATIN 80 MG TAB PO SCH (20:04)
--- NOTE | 2018-02-26 03:07 | FAST ---
SHIFT START DATE/TIME: 02/25/2018 19:00 (CDT) SHIFT END DATE/TIME: 02/26/2018 07:00 (CDT) NAME JAIRO GERMAIN DATE OF : 1955 DATE OF ADMISSION: 02/24/2018 23:45 (CDT) PHONE: AGE: 62 [facility]# [id number] GENDER: Male ENCOUNTER PHYSICIAN: Dr. Edilson Fritz M.D. ADMISSION DIAGNOSIS: - Stroke 01 - Left Body (Right Brain) (01.1) Sub acute basal ganglia infarct. EATING: Activity did not occur on this shift EATING - SCORE: 0-UNK GROOMING: Activity did not occur on this shift GROOMING - SCORE: 0-UNK BATHING: Activity did not occur on this shift BATHING - SCORE: 0-UNK DRESSING - UPPER BODY: Patient is not dressing in public clothing ARTICLES SCORE Total number of steps: 0 DRESSING - UPPER BODY - SCORE: 0-UNK DRESSING - LOWER BODY: Patient is not dressing in public clothing ARTICLES SCORE Total number of steps: 0 DRESSING - LOWER BODY - SCORE: 0-UNK TOILETING: TOILETING - STEP 1: Does the patient require assistance with toileting? Yes. TOILETING - STEP 2: Does the patient require the assistance of a helper? Yes. TOILETING - STEP 3: How much assistance does the patient require from the helper? Hands-on assistance from the helper TOILETING - STEP 4: Of the 3 tasks: 1) Adjusting clothing prior to use, 2) Cleansing of perineal area, 3) Adjusting clot bernard after use; How many tasks does the patient perform WITHOUT assistance of the helper? Three tasks with steadying assistance from the helper TOILETING - SCORE: 4-MIN BLADDER MANAGEMENT: BLADDER MANAGEMENT - STEP 1: Does the patient control the bladder completely and intentionally without equipment or devices or med ications, and is always continent? No. BLADDER MANAGEMENT - STEP 2: Does the patient require the assistance of a helper? Yes. BLADDER MANAGEMENT - STEP 3: How much assistance does the patient require from the helper? Only set-up of equipment - such as plac ing it within reach of the patient or emptying a device - to maintain either satisfactory voiding pat tern or managing an external device, such as an absorbent pad, ileal device, or catheter BLADDER MANAGEMENT - SCORE: 5-SUP BOWEL MANAGEMENT: Activity did not occur on this shift BOWEL MANAGEMENT - SCORE: 7-IND TRANSFERS: BED, CHAIR, WHEELCHAIR: Activity did not occur on this shift TRANSFERS: BED, CHAIR, WHEELCHAIR - SCORE: 0-UNK TRANSFERS: TOILET: Activity did not occur on this shift TRANSFERS: TOILET - SCORE: 0-UNK TRANSFERS: SHOWER: Activity did not occur on this shift TRANSFERS: SHOWER - SCORE: 0-UNK TRANSFERS: TUB: Activity did not occur on this shift TRANSFERS: TUB - SCORE: 0-UNK LOCOMOTION: WALK: Activity did not occur on this shift LOCOMOTION: WALK - SCORE: 0-UNK LOCOMOTION: WHEELCHAIR: Activity did not occur on this shift LOCOMOTION: WHEELCHAIR - SCORE: 0-UNK COMPREHENSION: COMPREHENSION - STEP 1: Does the patient require help to understand complex and abstract ideas (such as current events, finan gino, discharge planning, medical issues, relationships, etc)? Yes. COMPREHENSION - STEP 2: Does the patient require help to understand questions or statements about basic needs or ideas (such as hunger, thirst, sleep, safety, daily schedule, room location, or discomfort) half or more of the t bren? No. COMPREHENSION - STEP 3: How often does the patient need help to understand directions and conversation about basic needs? 10% - 24% of the time COMPREHENSION - SCORE: 4-MIN EXPRESSION EXPRESSION - STEP 1: Does the patient require help expressing complex and abstract ideas (such as current events, finances , discharge planning, medical issues, relationships, etc)? No. EXPRESSION - STEP 2: Does the patient need extra time, require an assistive device (such as augmentive communication syste m or a communication board), OR does s/he have mild difficulty expressing complex and abstract ideas (including mild dysarthria or mild word-find problems)? No. EXPRESSION - SCORE: 7-IND SOCIAL INTERACTION: SOCIAL INTERACTION - STEP 1: Does the patient require a helper to interact with others in social and therapeutic situations? No. SOCIAL INTERACTION - STEP 2: Does the patient need extra time in social situations, OR does s/he interact with staff, other patien ts, and family members ONLY in structured environments, OR does s/he require medication for social in teraction? No. SOCIAL INTERACTION - SCORE: 7-IND PROBLEM SOLVING: PROBLEM SOLVING - STEP 1: Does the patient need help to solve complex problems such as managing a checking account or confronti ng interpersonal problems? No. PROBLEM SOLVING - STEP 2: Does the patient require extra time to make decisions or solve problems, OR does s/he have slight dif ficulty reading, initiating, or self-correcting in unfamiliar situations? Yes, patient needs extra ti me. PROBLEM SOLVING - SCORE: 6-CLAUDIO MEMORY: MEMORY - STEP 1: Does the patient need help to remember frequently encountered people, daily routines, and executing r equests? No. MEMORY - STEP 2: Does the patient have slight difficulty recognizing frequently encountered people, daily routines, or executing requests without the need for repetition or using self-initiated or environmental cues to remember? Yes. MEMORY - SCORE: 6-CLAUDIO SIGNATURE PANEL: The following modified sections: Eating - Score, Grooming - Score, Dressing - Upper Body - Score, Chun ssing - Lower Body - Score, Toileting - Score, Bladder Management - Score, Bowel Management - Score, Transfers: Bed, Chair, Wheelchair - Score, Transfers: Toilet - Score, Transfers: Shower - Score, Mcclellan sfers: Tub - Score, Locomotion: Walk - Score, Locomotion: Wheelchair - Score, Comprehension - Score, Expression - Score, Social Interaction - Score, Problem Solving - Score, Memory - Score were [electro nically] signed by Dominga Perez CNA on ThuFeb 26 2018 02:09:11 GMT-0500 (Central Daylight Time)
[2018-02-26] MEDS: ASPIRIN EC 81 MG TAB PO SCH (08:14)
[2018-02-26] MEDS: ACETAMINOPHEN 500 MG TAB PO PRN ×2 (08:14→20:38)
[2018-02-26] MEDS: VALSARTAN 160 MG TAB PO SCH ×2 (08:15→20:39)
[2018-02-26] MEDS: CLOPIDOGREL 75 MG TABLET PO SCH (08:15)
--- NOTE | 2018-02-26 09:29 | P.RH.PN ---
Estimated Length of Stay: 15 Expected Discharge Date: 03/10/18 Discharge Disposition Plan: Home Family Support: Yes [facility] Goal: Mobility, Transfers, Self Care Vital Signs: Last Vital Signs Temp 97.4 F 02/26/18 08:00 Pulse 62 02/26/18 08:15 Resp 16 02/26/18 08:00 BP 162/79 H 02/26/18 08:15 Pulse Ox 98 02/26/18 08:00 Laboratory: Laboratory Last Values WBC 6.2 K/uL (4.3-10.9) D 02/25/18 05:33 RBC 3.79 M/uL (4.33-5.43) L 02/25/18 05:33 Hgb 11.6 g/dL (13.6-17.9) L 02/25/18 05:33 Hct 32.3 % (39.6-49.0) L 02/25/18 05:33 MCV 85.1 fL (80-100) 02/25/18 05:33 MCH 30.6 pg (27.0-35.0) 02/25/18 05:33 MCHC 35.9 g/dL (32.0-36.0) 02/25/18 05:33 RDW 13.6 % (12.1-15.2) 02/25/18 05:33 Plt Count 219 K/uL (152-406) 02/25/18 05:33 MPV 7.9 fL (7.6-11.3) 02/25/18 05:33 Neutrophils % 62.3 % (41.7-73.7) 02/25/18 05:33 Lymphocytes % 23.4 % (15.3-44.8) 02/25/18 05:33 Monocytes % 10.8 % (3.3-12.3) 02/25/18 05:33 Eosinophils % 2.6 % (0-4.4) 02/25/18 05:33 Basophils % 0.9 % (0-1.3) 02/25/18 05:33 Absolute Neutrophils 3.9 K/uL (1.8-8.0) 02/25/18 05:33 Absolute Lymphocytes 1.5 K/uL (0.7-4.9) 02/25/18 05:33 Absolute Monocytes 0.7 K/uL (0.1-1.3) 02/25/18 05:33 Absolute Eosinophils 0.2 K/uL (0-0.5) 02/25/18 05:33 Absolute Basophils 0.1 K/uL (0-0.5) 02/25/18 05:33 Sodium 137 mEq/L (135-145) 02/25/18 05:33 Potassium 4.0 mEq/L (3.6-5.0) 02/25/18 05:33 Chloride 104 mEq/L (101-111) 02/25/18 05:33 Carbon Dioxide 26 mEq/L (21-31) 02/25/18 05:33 BUN 17 mg/dL (6-20) 02/25/18 05:33 Creatinine 0.87 mg/dL (0.61-1.24) 02/25/18 05:33 Estimated GFR 89 mL/min (=/>90) L 02/25/18 05:33 Glucose 82 mg/dL (65-120) 02/25/18 05:33 Calcium 9.0 mg/dL (8.5-10.5) 02/25/18 05:33 Magnesium Cancelled 02/25/18 06:00 Albumin 3.6 g/dL (3.2-5.5) 02/25/18 05:33 Prealbumin 24.8 mg/dl (18-38) 02/25/18 05:33 Urine Color Yellow 02/25/18 00:05 Urine Appearance Clear 02/25/18 00:05 Urine pH 7.0 (5.0-7.0) 02/25/18 00:05 Ur Specific [place] 1.010 (1.005-1.030) 02/25/18 00:05 Urine Ketones Negative (NEG) 02/25/18 00:05 Urine Blood Negative (NEG) 02/25/18 00:05 Urine Nitrite Negative (NEG) 02/25/18 00:05 Urine Bilirubin Negative (NEG) 02/25/18 00:05 Urine Urobilinogen 0.2 mg/dL (0.2-1.0) 02/25/18 00:05 Ur Leukocyte Esterase Negative (NEG) 02/25/18 00:05 Urine RBC <5 /HPF (NONE SEEN) 02/25/18 00:05 Urine WBC None seen /HPF (<5) 02/25/18 00:05 Ur Squamous Epith Cells <5 /HPF (NONE SEEN) 02/25/18 00:05 Urine Bacteria <20 /HPF (NONE SEEN) 02/25/18 00:05 Urine Culture Reflexed Not needed 02/25/18 00:05 Urine Glucose Negative (NEG) 02/25/18 00:05 Urine Total Protein Trace (NEG) 02/25/18 00:05 Weight: 211 lb 6 oz Wound Present: Yes Closed Surgical Incision Present: Yes Negative Pressure Wound Therapy Present: No Physician Update: He is doing fairly well with physical and occupational. His labs are essentially normal. Medical Issues: pain on RLE Pain Issues: Tylenol ES 500mg Q4 PRN Functional Improvement: pt presents with MOD <-> severe deficits in the bilateral LEs with the R LE exhibiting greater deficits. pt demonstrates poor tolerance to functional activity as he quickly fatigues. pt experiences reduced balance and stability during ambulation and functional mobility. Skilled PT services are necessary to address the above mentioned impairments and functional limitations. Functional Improvement Occupational Therapy: VERY MOTIVATED TO PARTICIPATE WITH THERAPY Summary: Patient's care plan and correction goals have been reviewed and revised as necessary. Please see the Rehabilitation Signature page for all necessary signatures.
[2018-02-26] MEDS: ENOXAPARIN 40 MG/0.4 ML SQ SCH (17:15)
[2018-02-26] MEDS: ATORVASTATIN 80 MG TAB PO SCH (20:38)
--- NOTE | 2018-02-27 03:06 | FAST ---
SHIFT START DATE/TIME: 02/26/2018 19:00 (CDT) SHIFT END DATE/TIME: 02/27/2018 07:00 (CDT) NAME JAIRO GERMAIN DATE OF : 1955 DATE OF ADMISSION: 02/24/2018 23:45 (CDT) PHONE: AGE: 62 [facility]# [id number] GENDER: Male ENCOUNTER PHYSICIAN: Dr. Edilson Fritz M.D. ADMISSION DIAGNOSIS: - Stroke 01 - Left Body (Right Brain) (01.1) Sub acute basal ganglia infarct. EATING: Activity did not occur on this shift EATING - SCORE: 0-UNK GROOMING: Activity did not occur on this shift GROOMING - SCORE: 0-UNK BATHING: Activity did not occur on this shift BATHING - SCORE: 0-UNK DRESSING - UPPER BODY: Patient is not dressing in public clothing ARTICLES SCORE Total number of steps: 0 DRESSING - UPPER BODY - SCORE: 0-UNK DRESSING - LOWER BODY: Patient is not dressing in public clothing ARTICLES SCORE Total number of steps: 0 DRESSING - LOWER BODY - SCORE: 0-UNK TOILETING: TOILETING - STEP 1: Does the patient require assistance with toileting? Yes. TOILETING - STEP 2: Does the patient require the assistance of a helper? Yes. TOILETING - STEP 3: How much assistance does the patient require from the helper? Hands-on assistance from the helper TOILETING - STEP 4: Of the 3 tasks: 1) Adjusting clothing prior to use, 2) Cleansing of perineal area, 3) Adjusting clot bernard after use; How many tasks does the patient perform WITHOUT assistance of the helper? Three tasks with steadying assistance from the helper TOILETING - SCORE: 4-MIN BLADDER MANAGEMENT: BLADDER MANAGEMENT - STEP 1: Does the patient control the bladder completely and intentionally without equipment or devices or med ications, and is always continent? No. BLADDER MANAGEMENT - STEP 2: Does the patient require the assistance of a helper? Yes. BLADDER MANAGEMENT - STEP 3: How much assistance does the patient require from the helper? Only set-up of equipment - such as plac ing it within reach of the patient or emptying a device - to maintain either satisfactory voiding pat tern or managing an external device, such as an absorbent pad, ileal device, or catheter BLADDER MANAGEMENT - SCORE: 5-SUP BOWEL MANAGEMENT: Activity did not occur on this shift BOWEL MANAGEMENT - SCORE: 7-IND TRANSFERS: BED, CHAIR, WHEELCHAIR: TRANSFERS: BED, CHAIR, WHEELCHAIR - STEP 1: Does the patient require assistance with bed, chair, or wheelchair transfers? Yes. TRANSFERS: BED, CHAIR, WHEELCHAIR - STEP 2: Does the patient require the assistance of a helper? Yes. TRANSFERS: BED, CHAIR, WHEELCHAIR - STEP 3: How much assistance does the patient require from the helper? Steadying/guiding assistance TRANSFERS: BED, CHAIR, WHEELCHAIR - SCORE: 4-MIN TRANSFERS: TOILET: Activity did not occur on this shift TRANSFERS: TOILET - SCORE: 0-UNK TRANSFERS: SHOWER: Activity did not occur on this shift TRANSFERS: SHOWER - SCORE: 0-UNK TRANSFERS: TUB: Activity did not occur on this shift TRANSFERS: TUB - SCORE: 0-UNK LOCOMOTION: WALK: Activity did not occur on this shift LOCOMOTION: WALK - SCORE: 0-UNK LOCOMOTION: WHEELCHAIR: Activity did not occur on this shift LOCOMOTION: WHEELCHAIR - SCORE: 0-UNK COMPREHENSION: COMPREHENSION: TYPE: Both COMPREHENSION - STEP 1: Does the patient require help to understand complex and abstract ideas (such as current events, finan gino, discharge planning, medical issues, relationships, etc)? No. COMPREHENSION - STEP 2: Does the patient need extra time, require an assistive device (such as glasses, hearing aids, or an a ugmentative communication system), OR does s/he have mild difficulty expressing complex and abstract ideas (including mild dysarthria or mild word-finding problems)? Yes. COMPREHENSION - SCORE: 6-CLAUDIO EXPRESSION EXPRESSION: TYPE: Both EXPRESSION - STEP 1: Does the patient require help expressing complex and abstract ideas (such as current events, finances , discharge planning, medical issues, relationships, etc)? No. EXPRESSION - STEP 2: Does the patient need extra time, require an assistive device (such as augmentive communication syste m or a communication board), OR does s/he have mild difficulty expressing complex and abstract ideas (including mild dysarthria or mild word-find problems)? No. EXPRESSION - SCORE: 7-IND SOCIAL INTERACTION: SOCIAL INTERACTION - STEP 1: Does the patient require a helper to interact with others in social and therapeutic situations? No. SOCIAL INTERACTION - STEP 2: Does the patient need extra time in social situations, OR does s/he interact with staff, other patien ts, and family members ONLY in structured environments, OR does s/he require medication for social in teraction? No. SOCIAL INTERACTION - SCORE: 7-IND PROBLEM SOLVING: PROBLEM SOLVING - STEP 1: Does the patient need help to solve complex problems such as managing a checking account or confronti ng interpersonal problems? No. PROBLEM SOLVING - STEP 2: Does the patient require extra time to make decisions or solve problems, OR does s/he have slight dif ficulty reading, initiating, or self-correcting in unfamiliar situations? Yes, patient needs extra ti me. PROBLEM SOLVING - SCORE: 6-CLAUDIO MEMORY: MEMORY - STEP 1: Does the patient need help to remember frequently encountered people, daily routines, and executing r equests? No. MEMORY - STEP 2: Does the patient have slight difficulty recognizing frequently encountered people, daily routines, or executing requests without the need for repetition or using self-initiated or environmental cues to remember? Yes. MEMORY - SCORE: 6-CLAUDIO
[2018-02-27] MEDS: ASPIRIN EC 81 MG TAB PO SCH (07:57)
[2018-02-27] MEDS: CLOPIDOGREL 75 MG TABLET PO SCH (07:58)
[2018-02-27] MEDS: ACETAMINOPHEN 500 MG TAB PO PRN (07:58)
[2018-02-27] MEDS: VALSARTAN 160 MG TAB PO SCH ×2 (07:58→20:09)
--- NOTE | 2018-02-27 10:13 | FAST ---
SHIFT START DATE/TIME: 02/27/2018 07:00 (CDT) SHIFT END DATE/TIME: 02/27/2018 19:00 (CDT) NAME JAIRO GERMAIN DATE OF : 1955 DATE OF ADMISSION: 02/24/2018 23:45 (CDT) PHONE: AGE: 62 [facility]# [id number] GENDER: Male ENCOUNTER PHYSICIAN: Dr. Edilson Fritz M.D. ADMISSION DIAGNOSIS: - Stroke 01 - Left Body (Right Brain) (01.1) Sub acute basal ganglia infarct. EATING: EATING - STEP 1: Does the patient require assistance when eating? Yes. EATING - STEP 2: Does the patient require the assistance of a helper? No, patient only requires an assistive device, O R s/he takes more than reasonable time to eat, OR there is a safety concern, OR s/he requires modifie d food consistency EATING - SCORE: 6-CLAUDIO GROOMING: Activity did not occur on this shift GROOMING - SCORE: 0-UNK BATHING: Activity did not occur on this shift BATHING - SCORE: 0-UNK BATHING - COMMENTS: BATHED WITH OT DRESSING - UPPER BODY: Activity did not occur on this shift ARTICLES SCORE Total number of steps: 0 DRESSING - UPPER BODY - SCORE: 0-UNK DRESSING - UPPER BODY - COMMENTS: DRESSED WITH OT DRESSING - LOWER BODY: Activity did not occur on this shift ARTICLES SCORE Total number of steps: 0 DRESSING - LOWER BODY - SCORE: 0-UNK DRESSING - LOWER BODY - COMMENTS: Dressed with OT TOILETING: TOILETING - STEP 1: Does the patient require assistance with toileting? Yes. TOILETING - STEP 2: Does the patient require the assistance of a helper? Yes. TOILETING - STEP 3: How much assistance does the patient require from the helper? Only supervision TOILETING - SCORE: 5-SUP BLADDER MANAGEMENT: BLADDER MANAGEMENT - STEP 1: Does the patient control the bladder completely and intentionally without equipment or devices or med ications, and is always continent? No. BLADDER MANAGEMENT - STEP 2: Does the patient require the assistance of a helper? No, patient requires and independently uses an a ssistive device, such as a urinal, bedpan, bedside commode, catheter, absorbent pad, or collecting de vice BLADDER MANAGEMENT - SCORE: 6-CLAUDIO BOWEL MANAGEMENT: Activity did not occur on this shift BOWEL MANAGEMENT - SCORE: 7-IND TRANSFERS: BED, CHAIR, WHEELCHAIR: TRANSFERS: BED, CHAIR, WHEELCHAIR - STEP 1: Does the patient require assistance with bed, chair, or wheelchair transfers? Yes. TRANSFERS: BED, CHAIR, WHEELCHAIR - STEP 2: Does the patient require the assistance of a helper? Yes. TRANSFERS: BED, CHAIR, WHEELCHAIR - STEP 3: How much assistance does the patient require from the helper? Steadying/guiding assistance TRANSFERS: BED, CHAIR, WHEELCHAIR - SCORE: 4-MIN TRANSFERS: TOILET: TRANSFERS: TOILET - STEP 1: Does the patient require assistance with toilet transfers? Yes. TRANSFERS: TOILET - STEP 2: Does the patient require the assistance of a helper? Yes. TRANSFERS: TOILET - STEP 3: How much assistance does the patient require from the helper? Patient performs half or more of the tr ansferring tasks TRANSFERS: TOILET - STEP 4: Does the patient need only incidental help such as contact guard or steadying during toilet transfer? Yes. TRANSFERS: TOILET - SCORE: 4-MIN TRANSFERS: SHOWER: Activity did not occur on this shift TRANSFERS: SHOWER - SCORE: 0-UNK TRANSFERS: TUB: Activity did not occur on this shift TRANSFERS: TUB - SCORE: 0-UNK LOCOMOTION: WALK: Activity did not occur on this shift LOCOMOTION: WALK - SCORE: 0-UNK LOCOMOTION: WHEELCHAIR: Activity did not occur on this shift LOCOMOTION: WHEELCHAIR - SCORE: 0-UNK COMPREHENSION: COMPREHENSION - STEP 1: Does the patient require help to understand complex and abstract ideas (such as current events, finan gino, discharge planning, medical issues, relationships, etc)? No. COMPREHENSION - STEP 2: Does the patient need extra time, require an assistive device (such as glasses, hearing aids, or an a ugmentative communication system), OR does s/he have mild difficulty expressing complex and abstract ideas (including mild dysarthria or mild word-finding problems)? Yes. COMPREHENSION - SCORE: 6-CLAUDIO EXPRESSION EXPRESSION - STEP 1: Does the patient require help expressing complex and abstract ideas (such as current events, finances , discharge planning, medical issues, relationships, etc)? No. EXPRESSION - STEP 2: Does the patient need extra time, require an assistive device (such as augmentive communication syste m or a communication board), OR does s/he have mild difficulty expressing complex and abstract ideas (including mild dysarthria or mild word-find problems)? No. EXPRESSION - SCORE: 7-IND SOCIAL INTERACTION: SOCIAL INTERACTION - STEP 1: Does the patient require a helper to interact with others in social and therapeutic situations? No. SOCIAL INTERACTION - STEP 2: Does the patient need extra time in social situations, OR does s/he interact with staff, other patien ts, and family members ONLY in structured environments, OR does s/he require medication for social in teraction? No. SOCIAL INTERACTION - SCORE: 7-IND PROBLEM SOLVING: PROBLEM SOLVING - STEP 1: Does the patient need help to solve complex problems such as managing a checking account or confronti ng interpersonal problems? No. PROBLEM SOLVING - STEP 2: Does the patient require extra time to make decisions or solve problems, OR does s/he have slight dif ficulty reading, initiating, or self-correcting in unfamiliar situations? No. PROBLEM SOLVING - SCORE: 7-IND MEMORY: MEMORY - STEP 1: Does the patient need help to remember frequently encountered people, daily routines, and executing r equests? No. MEMORY - STEP 2: Does the patient have slight difficulty recognizing frequently encountered people, daily routines, or executing requests without the need for repetition or using self-initiated or environmental cues to remember? No. MEMORY - SCORE: 7-IND SIGNATURE PANEL: The following modified sections: Eating - Score, Grooming - Score, Bathing - Score, Bathing - Comment s:, Dressing - Upper Body - Score, Dressing - Upper Body - Comments:, Dressing - Lower Body - Score, Dressing - Lower Body - Comments:, Toileting - Score, Bladder Management - Score, Bowel Management - Score, Transfers: Bed, Chair, Wheelchair - Score, Transfers: Toilet - Score, Transfers: Shower - Scor e, Transfers: Tub - Score, Locomotion: Walk - Score, Locomotion: Wheelchair - Score, Comprehension - Score, Expression - Score, Social Interaction - Score, Problem Solving - Score, Memory - Score were [ electronically] signed by Sonu Reece on ThuFeb 27 2018 09:14:51 GMT-0500 (Central Daylight Time)
[2018-02-27] MEDS: TRAMADOL HCL 50 MG TAB PO PRN ×3 (11:06→20:11)
--- NOTE | 2018-02-27 13:21 | FAST ---
ENCOUNTER DATE AND TIME: 02/27/2018 08:00 (CDT) NAME JAIRO GERMAIN DATE OF : 1955 DATE OF ADMISSION: 02/24/2018 23:45 (CDT) PHONE: AGE: 62 [facility]# [id number] GENDER: Male ENCOUNTER PHYSICIAN: Dr. Edilson Fritz M.D. ADMISSION DIAGNOSIS: - Stroke 01 - Left Body (Right Brain) (01.1) Sub acute basal ganglia infarct. EATING: Activity did not occur on this shift EATING - SCORE: 0-UNK GROOMING: Activity did not occur on this shift GROOMING - SCORE: 0-UNK BATHING: Activity did not occur on this shift BATHING - SCORE: 0-UNK DRESSING - UPPER BODY: Activity did not occur on this shift Patient is not dressing in public clothing ARTICLES SCORE Total number of steps: 0 DRESSING - UPPER BODY - SCORE: 0-UNK DRESSING - LOWER BODY: Activity did not occur on this shift Patient is not dressing in public clothing ARTICLES SCORE Total number of steps: 0 DRESSING - LOWER BODY - SCORE: 0-UNK TOILETING: Activity did not occur on this shift TOILETING - SCORE: 0-UNK BLADDER MANAGEMENT: Activity did not occur on this shift BLADDER MANAGEMENT - SCORE: 7-IND BOWEL MANAGEMENT: Activity did not occur on this shift BOWEL MANAGEMENT - SCORE: 7-IND TRANSFERS: BED, CHAIR, WHEELCHAIR: TRANSFERS: BED, CHAIR, WHEELCHAIR - STEP 1: Does the patient require assistance with bed, chair, or wheelchair transfers? Yes. TRANSFERS: BED, CHAIR, WHEELCHAIR - STEP 2: Does the patient require the assistance of a helper? Yes. TRANSFERS: BED, CHAIR, WHEELCHAIR - STEP 3: How much assistance does the patient require from the helper? Steadying/guiding assistance TRANSFERS: BED, CHAIR, WHEELCHAIR - SCORE: 4-MIN TRANSFERS: TOILET: Activity did not occur on this shift TRANSFERS: TOILET - SCORE: 0-UNK TRANSFERS: SHOWER: Activity did not occur on this shift TRANSFERS: SHOWER - SCORE: 0-UNK TRANSFERS: TUB: Activity did not occur on this shift TRANSFERS: TUB - SCORE: 0-UNK LOCOMOTION: WALK: LOCOMOTION: WALK - STEP 1: Does the patient need help to walk 150 feet? Yes. LOCOMOTION: WALK - STEP 2: How much assistance does the patient require to walk a minimum of 150 feet? Only incidental help such as contact guarding or steadying LOCOMOTION: WALK - SCORE: 4-MIN LOCOMOTION: WHEELCHAIR: LOCOMOTION: WHEELCHAIR - STEP 1: Does the patient need help to go 150 feet in a wheelchair? Yes. LOCOMOTION: WHEELCHAIR - STEP 2: How much assistance does the patient need from the helper? Only supervision, cuing, or coaxing LOCOMOTION: WHEELCHAIR - SCORE: 5-SUP LOCOMOTION: STAIRS: Activity did not occur on this shift LOCOMOTION: STAIRS - SCORE: 0-UNK COMPREHENSION: COMPREHENSION - SCORE: 0-UNK EXPRESSION EXPRESSION - SCORE: 0-UNK SOCIAL INTERACTION: SOCIAL INTERACTION - SCORE: 0-UNK PROBLEM SOLVING: PROBLEM SOLVING - SCORE: 0-UNK MEMORY: MEMORY - SCORE: 0-UNK SIGNATURE PANEL: The following modified sections: Transfers: Bed, Chair, Wheelchair - Score, Transfers: Toilet - Score , Locomotion: Walk - Score, Locomotion: Wheelchair - Score, Locomotion: Stairs - Score were [aziza [email or web address]] signed by Brianda Flower PTA on Sat Feb 27 2018 12:23:21 GMT-0500 (Central Daylight Time)
--- NOTE | 2018-02-27 16:25 | FAST ---
ENCOUNTER DATE AND TIME: 02/27/2018 08:00 (CDT) NAME JAIRO GERMAIN DATE OF : 1955 DATE OF ADMISSION: 02/24/2018 23:45 (CDT) PHONE: AGE: 62 [facility]# [id number] GENDER: Male ENCOUNTER PHYSICIAN: Dr. Eidlson Fritz M.D. ADMISSION DIAGNOSIS: - Stroke 01 - Left Body (Right Brain) (01.1) Sub acute basal ganglia infarct. EATING: Activity did not occur on this shift EATING - SCORE: 0-UNK GROOMING: Comb/brush hair Oral care GROOMING - STEP 1: Does the patient require assistance when grooming? No. GROOMING - SCORE: 7-IND BATHING: Abdomen Buttocks Chest Left arm Left lower leg and foot Left upper leg Perineal area Right arm Right lower leg and foot Right upper leg BATHING - STEP 1: Does the patient require assistance when bathing? Yes. BATHING - STEP 2: Does the patient require the assistance of a helper? Yes. BATHING - STEP 3: How much assistance does the patient require from the helper? Only incidental help such as placement of a wash cloth in his/her hand a few times as s/he bathes OR help to bathe just one or two areas of the body BATHING - SCORE: 4-MIN DRESSING - UPPER BODY: ARTICLES SCORE Total number of steps: 0 DRESSING - UPPER BODY - STEP 1: Does the patient require help when dressing above the waist? No. DRESSING - UPPER BODY - SCORE: 7-IND DRESSING - LOWER BODY: Elastic waist pants (three steps) Sock - Left foot (one step) Sock - Right foot (one step) Underwear (three steps) ARTICLES SCORE Total number of steps: 8 DRESSING - LOWER BODY - STEP 1: Does the patient require help when dressing below the waist? Yes. DRESSING - LOWER BODY - STEP 2: Does the patient require the assistance of a helper? Yes. DRESSING - LOWER BODY - STEP 3: Does the helper touch the patient while dressing? Yes. DRESSING - LOWER BODY - STEP 4: How many of the total steps does the patient complete on his/her own? 2 DRESSING - LOWER BODY - STEP 5: Does patient require total assistance for dressing below the waist such as the helper holding clothin g and performing basically all the activities? No. DRESSING - LOWER BODY - SCORE: 2-MAX TOILETING: Activity did not occur on this shift TOILETING - SCORE: 0-UNK BLADDER MANAGEMENT: Activity did not occur on this shift BLADDER MANAGEMENT - SCORE: 7-IND BOWEL MANAGEMENT: Activity did not occur on this shift BOWEL MANAGEMENT - SCORE: 7-IND TRANSFERS: BED, CHAIR, WHEELCHAIR: TRANSFERS: BED, CHAIR, WHEELCHAIR - STEP 1: Does the patient require assistance with bed, chair, or wheelchair transfers? Yes. TRANSFERS: BED, CHAIR, WHEELCHAIR - STEP 2: Does the patient require the assistance of a helper? Yes. TRANSFERS: BED, CHAIR, WHEELCHAIR - STEP 3: How much assistance does the patient require from the helper? Steadying/guiding assistance TRANSFERS: BED, CHAIR, WHEELCHAIR - SCORE: 4-MIN TRANSFERS: TOILET: Activity did not occur on this shift TRANSFERS: TOILET - SCORE: 0-UNK TRANSFERS: SHOWER: TRANSFERS: SHOWER - STEP 1: Does the patient require assistance with shower transfers? Yes. TRANSFERS: SHOWER - STEP 2: Does the patient require the assistance of a helper? Yes. TRANSFERS: SHOWER - STEP 3: How much assistance does the patient require from the helper? Only incidental help such as contact gu arding or steadying during shower transfers, or help to lift one leg into the shower TRANSFERS: SHOWER - SCORE: 4-MIN TRANSFERS: TUB: Activity did not occur on this shift TRANSFERS: TUB - SCORE: 0-UNK LOCOMOTION: WALK: Activity did not occur on this shift LOCOMOTION: WALK - SCORE: 0-UNK LOCOMOTION: WHEELCHAIR: Activity did not occur on this shift LOCOMOTION: WHEELCHAIR - SCORE: 0-UNK LOCOMOTION: STAIRS: Activity did not occur on this shift LOCOMOTION: STAIRS - SCORE: 0-UNK COMPREHENSION: COMPREHENSION: TYPE: Both COMPREHENSION - STEP 1: Does the patient require help to understand complex and abstract ideas (such as current events, finan gino, discharge planning, medical issues, relationships, etc)? No. COMPREHENSION - STEP 2: Does the patient need extra time, require an assistive device (such as glasses, hearing aids, or an a ugmentative communication system), OR does s/he have mild difficulty expressing complex and abstract ideas (including mild dysarthria or mild word-finding problems)? Yes. COMPREHENSION - SCORE: 6-CLAUDIO EXPRESSION EXPRESSION: TYPE: Both EXPRESSION - STEP 1: Does the patient require help expressing complex and abstract ideas (such as current events, finances , discharge planning, medical issues, relationships, etc)? No. EXPRESSION - STEP 2: Does the patient need extra time, require an assistive device (such as augmentive communication syste m or a communication board), OR does s/he have mild difficulty expressing complex and abstract ideas (including mild dysarthria or mild word-find problems)? No. EXPRESSION - SCORE: 7-IND SOCIAL INTERACTION: SOCIAL INTERACTION - STEP 1: Does the patient require a helper to interact with others in social and therapeutic situations? No. SOCIAL INTERACTION - STEP 2: Does the patient need extra time in social situations, OR does s/he interact with staff, other patien ts, and family members ONLY in structured environments, OR does s/he require medication for social in teraction? No. SOCIAL INTERACTION - SCORE: 7-IND PROBLEM SOLVING: PROBLEM SOLVING - STEP 1: Does the patient need help to solve complex problems such as managing a checking account or confronti ng interpersonal problems? No. PROBLEM SOLVING - STEP 2: Does the patient require extra time to make decisions or solve problems, OR does s/he have slight dif ficulty reading, initiating, or self-correcting in unfamiliar situations? No. PROBLEM SOLVING - SCORE: 7-IND MEMORY: MEMORY - STEP 1: Does the patient need help to remember frequently encountered people, daily routines, and executing r equests? No. MEMORY - STEP 2: Does the patient have slight difficulty recognizing frequently encountered people, daily routines, or executing requests without the need for repetition or using self-initiated or environmental cues to remember? No. MEMORY - SCORE: 7-IND SIGNATURE PANEL: The following modified sections: Eating - Score, Grooming - Score, Bathing - Score, Dressing - Upper Body - Score, Dressing - Lower Body - Score, Toileting - Score, Transfers: Bed, Chair, Wheelchair - S core, Transfers: Toilet - Score, Transfers: Shower - Score, Transfers: Tub - Score, Comprehension - S core, Expression - Score, Social Interaction - Score, Problem Solving - Score, Memory - Score were [e lectronically] signed by IHSAN Alas on ThuFeb 27 2018 15:27:15 T-0500 ([facility])
[2018-02-27] MEDS: ENOXAPARIN 40 MG/0.4 ML SQ SCH (16:26)
[2018-02-27] MEDS: ATORVASTATIN 80 MG TAB PO SCH (20:09)
--- NOTE | 2018-02-28 05:07 | FAST ---
SHIFT START DATE/TIME: 02/27/2018 19:00 (CDT) SHIFT END DATE/TIME: 02/28/2018 07:00 (CDT) NAME JAIRO GERMAIN DATE OF : 1955 DATE OF ADMISSION: 02/24/2018 23:45 (CDT) PHONE: AGE: 62 [facility]# [id number] GENDER: Male ENCOUNTER PHYSICIAN: Dr. Edilson Fritz M.D. ADMISSION DIAGNOSIS: - Stroke 01 - Left Body (Right Brain) (01.1) Sub acute basal ganglia infarct. EATING: EATING - STEP 1: Does the patient require assistance when eating? Yes. EATING - STEP 2: Does the patient require the assistance of a helper? Yes. EATING - STEP 3: Does the patient perform half or more of the eating tasks? Yes. EATING - STEP 4: Does the patient need only supervision, cuing, coaxing OR help to apply an orthosis OR help to cut fo od, open containers, pour liquids, or butter bread? Yes. EATING - SCORE: 5-SUP GROOMING: Activity did not occur on this shift GROOMING - SCORE: 0-UNK BATHING: Activity did not occur on this shift BATHING - SCORE: 0-UNK DRESSING - UPPER BODY: Activity did not occur on this shift ARTICLES SCORE Total number of steps: 0 DRESSING - UPPER BODY - SCORE: 0-UNK DRESSING - LOWER BODY: Activity did not occur on this shift ARTICLES SCORE Total number of steps: 0 DRESSING - LOWER BODY - SCORE: 0-UNK TOILETING: TOILETING - STEP 1: Does the patient require assistance with toileting? Yes. TOILETING - STEP 2: Does the patient require the assistance of a helper? Yes. TOILETING - STEP 3: How much assistance does the patient require from the helper? Hands-on assistance from the helper TOILETING - STEP 4: Of the 3 tasks: 1) Adjusting clothing prior to use, 2) Cleansing of perineal area, 3) Adjusting clot bernard after use; How many tasks does the patient perform WITHOUT assistance of the helper? Three tasks with steadying assistance from the helper TOILETING - SCORE: 4-MIN BLADDER MANAGEMENT: BLADDER MANAGEMENT - STEP 1: Does the patient control the bladder completely and intentionally without equipment or devices or med ications, and is always continent? No. BLADDER MANAGEMENT - STEP 2: Does the patient require the assistance of a helper? Yes. BLADDER MANAGEMENT - STEP 3: How much assistance does the patient require from the helper? Only set-up of equipment - such as plac ing it within reach of the patient or emptying a device - to maintain either satisfactory voiding pat tern or managing an external device, such as an absorbent pad, ileal device, or catheter BLADDER MANAGEMENT - SCORE: 5-SUP BLADDER MANAGEMENT - FREQUENCY OF ACCIDENTS: BLADDER MANAGEMENT(FA) - STEP 1: How many accidents has the patient had during the current shift? 0 BOWEL MANAGEMENT: Activity did not occur on this shift BOWEL MANAGEMENT - SCORE: 7-IND TRANSFERS: BED, CHAIR, WHEELCHAIR: Activity did not occur on this shift TRANSFERS: BED, CHAIR, WHEELCHAIR - SCORE: 0-UNK TRANSFERS: TOILET: Activity did not occur on this shift TRANSFERS: TOILET - SCORE: 0-UNK TRANSFERS: SHOWER: Activity did not occur on this shift TRANSFERS: SHOWER - SCORE: 0-UNK TRANSFERS: TUB: Activity did not occur on this shift TRANSFERS: TUB - SCORE: 0-UNK LOCOMOTION: WALK: Activity did not occur on this shift LOCOMOTION: WALK - SCORE: 0-UNK LOCOMOTION: WHEELCHAIR: Activity did not occur on this shift LOCOMOTION: WHEELCHAIR - SCORE: 0-UNK COMPREHENSION: COMPREHENSION: TYPE: Both COMPREHENSION - STEP 1: Does the patient require help to understand complex and abstract ideas (such as current events, finan gino, discharge planning, medical issues, relationships, etc)? No. COMPREHENSION - STEP 2: Does the patient need extra time, require an assistive device (such as glasses, hearing aids, or an a ugmentative communication system), OR does s/he have mild difficulty expressing complex and abstract ideas (including mild dysarthria or mild word-finding problems)? Yes. COMPREHENSION - SCORE: 6-CLAUDIO EXPRESSION EXPRESSION: TYPE: Both EXPRESSION - STEP 1: Does the patient require help expressing complex and abstract ideas (such as current events, finances , discharge planning, medical issues, relationships, etc)? No. EXPRESSION - STEP 2: Does the patient need extra time, require an assistive device (such as augmentive communication syste m or a communication board), OR does s/he have mild difficulty expressing complex and abstract ideas (including mild dysarthria or mild word-find problems)? Yes. EXPRESSION - SCORE: 6-CLAUDIO SOCIAL INTERACTION: SOCIAL INTERACTION - STEP 1: Does the patient require a helper to interact with others in social and therapeutic situations? No. SOCIAL INTERACTION - STEP 2: Does the patient need extra time in social situations, OR does s/he interact with staff, other patien ts, and family members ONLY in structured environments, OR does s/he require medication for social in teraction? Yes, patient needs extra time SOCIAL INTERACTION - SCORE: 6-CLAUDIO PROBLEM SOLVING: PROBLEM SOLVING - STEP 1: Does the patient need help to solve complex problems such as managing a checking account or confronti ng interpersonal problems? No. PROBLEM SOLVING - STEP 2: Does the patient require extra time to make decisions or solve problems, OR does s/he have slight dif ficulty reading, initiating, or self-correcting in unfamiliar situations? Yes, patient needs extra ti me. PROBLEM SOLVING - SCORE: 6-CLAUDIO MEMORY: MEMORY - STEP 1: Does the patient need help to remember frequently encountered people, daily routines, and executing r equests? No. MEMORY - STEP 2: Does the patient have slight difficulty recognizing frequently encountered people, daily routines, or executing requests without the need for repetition or using self-initiated or environmental cues to remember? Yes. MEMORY - SCORE: 6-CLAUDIO SIGNATURE PANEL: The following modified sections: Eating - Score, Grooming - Score, Bathing - Score, Dressing - Upper Body - Score, Dressing - Lower Body - Score, Toileting - Score, Bladder Management - Score, Bowel Man agement - Score, Transfers: Bed, Chair, Wheelchair - Score, Transfers: Toilet - Score, Transfers: Luz Maria wer - Score, Transfers: Tub - Score, Locomotion: Walk - Score, Locomotion: Wheelchair - Score, Compre hension - Score, Expression - Score, Social Interaction - Score, Problem Solving - Score, Memory - Sc ore were [electronically] signed by Briseyda FosterNChu on ThuFeb 28 2018 04:10:01 T-0500 ( [facility] Day[facility])
[2018-02-28] MEDS: TRAMADOL HCL 50 MG TAB PO PRN ×3 (05:36→20:09)
[2018-02-28] MEDS: ASPIRIN EC 81 MG TAB PO SCH (08:27)
[2018-02-28] MEDS: VALSARTAN 160 MG TAB PO SCH ×2 (08:27→20:09)
[2018-02-28] MEDS: CLOPIDOGREL 75 MG TABLET PO SCH (08:27)
--- NOTE | 2018-02-28 11:51 | FAST ---
SHIFT START DATE/TIME: 02/28/2018 07:00 (CDT) SHIFT END DATE/TIME: 02/28/2018 19:00 (CDT) NAME JAIRO GERMAIN DATE OF : 1955 DATE OF ADMISSION: 02/24/2018 23:45 (CDT) PHONE: AGE: 62 [facility]# [id number] GENDER: Male ENCOUNTER PHYSICIAN: Dr. Edilson Fritz M.D. ADMISSION DIAGNOSIS: - Stroke 01 - Left Body (Right Brain) (01.1) Sub acute basal ganglia infarct. EATING: EATING - STEP 1: Does the patient require assistance when eating? Yes. EATING - STEP 2: Does the patient require the assistance of a helper? No, patient only requires an assistive device, O R s/he takes more than reasonable time to eat, OR there is a safety concern, OR s/he requires modifie d food consistency EATING - SCORE: 6-CLAUDIO GROOMING: Activity did not occur on this shift GROOMING - SCORE: 0-UNK BATHING: Activity did not occur on this shift BATHING - SCORE: 0-UNK DRESSING - UPPER BODY: Patient is not dressing in public clothing ARTICLES SCORE Total number of steps: 0 DRESSING - UPPER BODY - SCORE: 0-UNK DRESSING - LOWER BODY: Patient is not dressing in public clothing ARTICLES SCORE Total number of steps: 0 DRESSING - LOWER BODY - SCORE: 0-UNK TOILETING: TOILETING - STEP 1: Does the patient require assistance with toileting? Yes. TOILETING - STEP 2: Does the patient require the assistance of a helper? Yes. TOILETING - STEP 3: How much assistance does the patient require from the helper? Hands-on assistance from the helper TOILETING - STEP 4: Of the 3 tasks: 1) Adjusting clothing prior to use, 2) Cleansing of perineal area, 3) Adjusting clot bernard after use; How many tasks does the patient perform WITHOUT assistance of the helper? Three tasks with steadying assistance from the helper TOILETING - SCORE: 4-MIN BLADDER MANAGEMENT: BLADDER MANAGEMENT - STEP 1: Does the patient control the bladder completely and intentionally without equipment or devices or med ications, and is always continent? No. BLADDER MANAGEMENT - STEP 2: Does the patient require the assistance of a helper? No, patient requires and independently uses an a ssistive device, such as a urinal, bedpan, bedside commode, catheter, absorbent pad, or collecting de vice BLADDER MANAGEMENT - SCORE: 6-CLAUDIO BOWEL MANAGEMENT: BOWEL MANAGEMENT - STEP 1: Does the patient control bowels completely and intentionally without equipment devices or medications AND is always continent? No. BOWEL MANAGEMENT - STEP 2: Does the patient require the assistance of a helper? No, patient requires and manages independently a n assistive device such as a bedpan, bedside commode, absorbent pad, incontinent device, or collectin g device BOWEL MANAGEMENT - SCORE: 6-CLAUDIO TRANSFERS: BED, CHAIR, WHEELCHAIR: TRANSFERS: BED, CHAIR, WHEELCHAIR - STEP 1: Does the patient require assistance with bed, chair, or wheelchair transfers? Yes. TRANSFERS: BED, CHAIR, WHEELCHAIR - STEP 2: Does the patient require the assistance of a helper? Yes. TRANSFERS: BED, CHAIR, WHEELCHAIR - STEP 3: How much assistance does the patient require from the helper? Steadying/guiding assistance TRANSFERS: BED, CHAIR, WHEELCHAIR - SCORE: 4-MIN TRANSFERS: TOILET: TRANSFERS: TOILET - STEP 1: Does the patient require assistance with toilet transfers? Yes. TRANSFERS: TOILET - STEP 2: Does the patient require the assistance of a helper? Yes. TRANSFERS: TOILET - STEP 3: How much assistance does the patient require from the helper? Only supervision, cuing, coaxing, OR he lp to set out transfer equipment or to lock brakes and/or lift foot rests TRANSFERS: TOILET - SCORE: 5-SUP TRANSFERS: SHOWER: Activity did not occur on this shift TRANSFERS: SHOWER - SCORE: 0-UNK TRANSFERS: TUB: Activity did not occur on this shift TRANSFERS: TUB - SCORE: 0-UNK LOCOMOTION: WALK: Activity did not occur on this shift LOCOMOTION: WALK - SCORE: 0-UNK LOCOMOTION: WHEELCHAIR: Activity did not occur on this shift LOCOMOTION: WHEELCHAIR - SCORE: 0-UNK COMPREHENSION: COMPREHENSION - STEP 1: Does the patient require help to understand complex and abstract ideas (such as current events, finan gino, discharge planning, medical issues, relationships, etc)? No. COMPREHENSION - STEP 2: Does the patient need extra time, require an assistive device (such as glasses, hearing aids, or an a ugmentative communication system), OR does s/he have mild difficulty expressing complex and abstract ideas (including mild dysarthria or mild word-finding problems)? Yes. COMPREHENSION - SCORE: 6-CLAUDIO EXPRESSION EXPRESSION - STEP 1: Does the patient require help expressing complex and abstract ideas (such as current events, finances , discharge planning, medical issues, relationships, etc)? No. EXPRESSION - STEP 2: Does the patient need extra time, require an assistive device (such as augmentive communication syste m or a communication board), OR does s/he have mild difficulty expressing complex and abstract ideas (including mild dysarthria or mild word-find problems)? Yes. EXPRESSION - SCORE: 6-CLAUDIO SOCIAL INTERACTION: SOCIAL INTERACTION - STEP 1: Does the patient require a helper to interact with others in social and therapeutic situations? No. SOCIAL INTERACTION - STEP 2: Does the patient need extra time in social situations, OR does s/he interact with staff, other patien ts, and family members ONLY in structured environments, OR does s/he require medication for social in teraction? No. SOCIAL INTERACTION - SCORE: 7-IND PROBLEM SOLVING: PROBLEM SOLVING - STEP 1: Does the patient need help to solve complex problems such as managing a checking account or confronti ng interpersonal problems? No. PROBLEM SOLVING - STEP 2: Does the patient require extra time to make decisions or solve problems, OR does s/he have slight dif ficulty reading, initiating, or self-correcting in unfamiliar situations? Yes, patient needs extra ti me. PROBLEM SOLVING - SCORE: 6-CLAUDIO MEMORY: MEMORY - STEP 1: Does the patient need help to remember frequently encountered people, daily routines, and executing r equests? No. MEMORY - STEP 2: Does the patient have slight difficulty recognizing frequently encountered people, daily routines, or executing requests without the need for repetition or using self-initiated or environmental cues to remember? Yes. MEMORY - SCORE: 6-CLAUDIO SIGNATURE PANEL: The following modified sections: Eating - Score, Grooming - Score, Bathing - Score, Dressing - Upper Body - Score, Dressing - Lower Body - Score, Toileting - Score, Bladder Management - Score, Bowel Man agement - Score, Transfers: Bed, Chair, Wheelchair - Score, Transfers: Toilet - Score, Transfers: Luz Maria wer - Score, Transfers: Tub - Score, Locomotion: Walk - Score, Locomotion: Wheelchair - Score, Compre hension - Score, Expression - Score, Social Interaction - Score, Problem Solving - Score, Memory - Sc ore were [electronically] signed by Sonu Reece on ThuFeb 28 2018 10:53:30 GMT-0500 (Central Daylight Time)
[2018-02-28] MEDS: ENOXAPARIN 40 MG/0.4 ML SQ SCH (16:39)
[2018-02-28] MEDS: ATORVASTATIN 80 MG TAB PO SCH (20:09)
--- NOTE | 2018-03-01 04:06 | FAST ---
SHIFT START DATE/TIME: 02/28/2018 19:00 (CDT) SHIFT END DATE/TIME: 03/01/2018 07:00 (CDT) NAME JAIRO GERMAIN DATE OF : 1955 DATE OF ADMISSION: 02/24/2018 23:45 (CDT) PHONE: AGE: 62 [facility]# [id number] GENDER: Male ENCOUNTER PHYSICIAN: Dr. Edilson Fritz M.D. ADMISSION DIAGNOSIS: - Stroke 01 - Left Body (Right Brain) (01.1) Sub acute basal ganglia infarct. EATING: EATING - STEP 1: Does the patient require assistance when eating? Yes. EATING - STEP 2: Does the patient require the assistance of a helper? Yes. EATING - STEP 3: Does the patient perform half or more of the eating tasks? Yes. EATING - STEP 4: Does the patient need only supervision, cuing, coaxing OR help to apply an orthosis OR help to cut fo od, open containers, pour liquids, or butter bread? Yes. EATING - SCORE: 5-SUP GROOMING: Wash, rinse, and dry face Wash, rinse, and dry hands GROOMING - STEP 1: Does the patient require assistance when grooming? Yes. GROOMING - STEP 2: Does the patient require the assistance of a helper? Yes. GROOMING - STEP 3: How much assistance does the patient require from the helper? Only prior equipment preparation/set up from the helper GROOMING - SCORE: 5-SUP BATHING: Activity did not occur on this shift BATHING - SCORE: 0-UNK DRESSING - UPPER BODY: Patient is not dressing in public clothing ARTICLES SCORE Total number of steps: 0 DRESSING - UPPER BODY - SCORE: 0-UNK DRESSING - LOWER BODY: Patient is not dressing in public clothing ARTICLES SCORE Total number of steps: 0 DRESSING - LOWER BODY - SCORE: 0-UNK TOILETING: TOILETING - STEP 1: Does the patient require assistance with toileting? Yes. TOILETING - STEP 2: Does the patient require the assistance of a helper? Yes. TOILETING - STEP 3: How much assistance does the patient require from the helper? Only supervision TOILETING - SCORE: 5-SUP BLADDER MANAGEMENT: BLADDER MANAGEMENT - STEP 1: Does the patient control the bladder completely and intentionally without equipment or devices or med ications, and is always continent? No. BLADDER MANAGEMENT - STEP 2: Does the patient require the assistance of a helper? Yes. BLADDER MANAGEMENT - STEP 3: How much assistance does the patient require from the helper? Only set-up of equipment - such as plac ing it within reach of the patient or emptying a device - to maintain either satisfactory voiding pat tern or managing an external device, such as an absorbent pad, ileal device, or catheter BLADDER MANAGEMENT - SCORE: 5-SUP BLADDER MANAGEMENT - FREQUENCY OF ACCIDENTS: BLADDER MANAGEMENT(FA) - STEP 1: How many accidents has the patient had during the current shift? 0 BOWEL MANAGEMENT: Activity did not occur on this shift BOWEL MANAGEMENT - SCORE: 7-IND TRANSFERS: BED, CHAIR, WHEELCHAIR: Activity did not occur on this shift TRANSFERS: BED, CHAIR, WHEELCHAIR - SCORE: 0-UNK TRANSFERS: TOILET: Activity did not occur on this shift TRANSFERS: TOILET - SCORE: 0-UNK TRANSFERS: SHOWER: Activity did not occur on this shift TRANSFERS: SHOWER - SCORE: 0-UNK TRANSFERS: TUB: Activity did not occur on this shift TRANSFERS: TUB - SCORE: 0-UNK LOCOMOTION: WALK: Activity did not occur on this shift LOCOMOTION: WALK - SCORE: 0-UNK LOCOMOTION: WHEELCHAIR: Activity did not occur on this shift LOCOMOTION: WHEELCHAIR - SCORE: 0-UNK COMPREHENSION: COMPREHENSION: TYPE: Both COMPREHENSION - STEP 1: Does the patient require help to understand complex and abstract ideas (such as current events, finan gino, discharge planning, medical issues, relationships, etc)? No. COMPREHENSION - STEP 2: Does the patient need extra time, require an assistive device (such as glasses, hearing aids, or an a ugmentative communication system), OR does s/he have mild difficulty expressing complex and abstract ideas (including mild dysarthria or mild word-finding problems)? Yes. COMPREHENSION - SCORE: 6-CLAUDIO EXPRESSION EXPRESSION: TYPE: Both EXPRESSION - STEP 1: Does the patient require help expressing complex and abstract ideas (such as current events, finances , discharge planning, medical issues, relationships, etc)? No. EXPRESSION - STEP 2: Does the patient need extra time, require an assistive device (such as augmentive communication syste m or a communication board), OR does s/he have mild difficulty expressing complex and abstract ideas (including mild dysarthria or mild word-find problems)? Yes. EXPRESSION - SCORE: 6-CLAUDIO SOCIAL INTERACTION: SOCIAL INTERACTION - STEP 1: Does the patient require a helper to interact with others in social and therapeutic situations? No. SOCIAL INTERACTION - STEP 2: Does the patient need extra time in social situations, OR does s/he interact with staff, other patien ts, and family members ONLY in structured environments, OR does s/he require medication for social in teraction? Yes, patient needs extra time SOCIAL INTERACTION - SCORE: 6-CLAUDIO PROBLEM SOLVING: PROBLEM SOLVING - STEP 1: Does the patient need help to solve complex problems such as managing a checking account or confronti ng interpersonal problems? No. PROBLEM SOLVING - STEP 2: Does the patient require extra time to make decisions or solve problems, OR does s/he have slight dif ficulty reading, initiating, or self-correcting in unfamiliar situations? Yes, patient needs extra ti me. PROBLEM SOLVING - SCORE: 6-CLAUDIO MEMORY: MEMORY - STEP 1: Does the patient need help to remember frequently encountered people, daily routines, and executing r equests? No. MEMORY - STEP 2: Does the patient have slight difficulty recognizing frequently encountered people, daily routines, or executing requests without the need for repetition or using self-initiated or environmental cues to remember? Yes. MEMORY - SCORE: 6-CLAUDIO SIGNATURE PANEL: The following modified sections: Eating - Score, Grooming - Score, Bathing - Score, Dressing - Upper Body - Score, Dressing - Lower Body - Score, Toileting - Score, Bladder Management - Score, Bowel Man agement - Score, Transfers: Bed, Chair, Wheelchair - Score, Transfers: Toilet - Score, Transfers: Luz Maria wer - Score, Transfers: Tub - Score, Locomotion: Walk - Score, Locomotion: Wheelchair - Score, Compre hension - Score, Expression - Score, Social Interaction - Score, Problem Solving - Score, Memory - Sc ore were [electronically] signed by Briseyda FosterNhCu on ThuMar 01 2018 02:37:31 GMT-0500 ( Central Daylight Time)
[2018-03-01] MEDS: TRAMADOL HCL 50 MG TAB PO PRN ×3 (08:06→20:14)
[2018-03-01] MEDS: CLOPIDOGREL 75 MG TABLET PO SCH (08:07)
[2018-03-01] MEDS: ASPIRIN EC 81 MG TAB PO SCH (08:07)
[2018-03-01] MEDS: VALSARTAN 160 MG TAB PO SCH ×2 (08:49→20:13)
--- NOTE | 2018-03-01 11:37 | FAST ---
ENCOUNTER DATE AND TIME: 02/26/2018 08:00 (CDT) NAME JAIRO GERMAIN DATE OF : 1955 DATE OF ADMISSION: 02/24/2018 23:45 (CDT) PHONE: AGE: 62 [facility]# [id number] GENDER: Male ENCOUNTER PHYSICIAN: Dr. Edilson Fritz M.D. ADMISSION DIAGNOSIS: - Stroke 01 - Left Body (Right Brain) (01.1) Sub acute basal ganglia infarct. EATING: Activity did not occur on this shift EATING - SCORE: 0-UNK GROOMING: Activity did not occur on this shift GROOMING - SCORE: 0-UNK BATHING: Activity did not occur on this shift BATHING - SCORE: 0-UNK DRESSING - UPPER BODY: Activity did not occur on this shift Patient is not dressing in public clothing ARTICLES SCORE Total number of steps: 0 DRESSING - UPPER BODY - SCORE: 0-UNK DRESSING - LOWER BODY: Activity did not occur on this shift Patient is not dressing in public clothing ARTICLES SCORE Total number of steps: 0 DRESSING - LOWER BODY - SCORE: 0-UNK TOILETING: Activity did not occur on this shift TOILETING - SCORE: 0-UNK BLADDER MANAGEMENT: Activity did not occur on this shift BLADDER MANAGEMENT - SCORE: 7-IND BOWEL MANAGEMENT: Activity did not occur on this shift BOWEL MANAGEMENT - SCORE: 7-IND TRANSFERS: BED, CHAIR, WHEELCHAIR: TRANSFERS: BED, CHAIR, WHEELCHAIR - STEP 1: Does the patient require assistance with bed, chair, or wheelchair transfers? Yes. TRANSFERS: BED, CHAIR, WHEELCHAIR - STEP 2: Does the patient require the assistance of a helper? Yes. TRANSFERS: BED, CHAIR, WHEELCHAIR - STEP 3: How much assistance does the patient require from the helper? Lifting of the legs TRANSFERS: BED, CHAIR, WHEELCHAIR - STEP 4: How many legs does the patient require the helper to lift? both legs TRANSFERS: BED, CHAIR, WHEELCHAIR - SCORE: 3-MOD TRANSFERS: TOILET: Activity did not occur on this shift TRANSFERS: TOILET - SCORE: 0-UNK TRANSFERS: SHOWER: Activity did not occur on this shift TRANSFERS: SHOWER - SCORE: 0-UNK TRANSFERS: TUB: Activity did not occur on this shift TRANSFERS: TUB - SCORE: 0-UNK LOCOMOTION: WALK: LOCOMOTION: WALK - STEP 1: Does the patient need help to walk 150 feet? Yes. LOCOMOTION: WALK - STEP 2: How much assistance does the patient require to walk a minimum of 150 feet? Only incidental help such as contact guarding or steadying LOCOMOTION: WALK - SCORE: 4-MIN LOCOMOTION: WHEELCHAIR: LOCOMOTION: WHEELCHAIR - STEP 1: Does the patient need help to go 150 feet in a wheelchair? Yes. LOCOMOTION: WHEELCHAIR - STEP 2: How much assistance does the patient need from the helper? Only supervision, cuing, or coaxing LOCOMOTION: WHEELCHAIR - SCORE: 5-SUP LOCOMOTION: STAIRS: Activity did not occur on this shift LOCOMOTION: STAIRS - SCORE: 0-UNK COMPREHENSION: COMPREHENSION - SCORE: 0-UNK EXPRESSION EXPRESSION - SCORE: 0-UNK SOCIAL INTERACTION: SOCIAL INTERACTION - SCORE: 0-UNK PROBLEM SOLVING: PROBLEM SOLVING - SCORE: 0-UNK MEMORY: MEMORY - SCORE: 0-UNK SIGNATURE PANEL: The following modified sections: Transfers: Bed, Chair, Wheelchair - Score, Transfers: Toilet - Score , Locomotion: Walk - Score, Locomotion: Wheelchair - Score, Locomotion: Stairs - Score were [electron marta] signed by Maurisio Estrella PTA on ThuMar 01 2018 10:40:00 GMT-0500 (Central Daylight Time)
--- NOTE | 2018-03-01 14:27 | FAST ---
SHIFT START DATE/TIME: 03/01/2018 07:00 (CDT) SHIFT END DATE/TIME: 03/01/2018 19:00 (CDT) NAME JAIRO GERMAIN DATE OF : 1955 DATE OF ADMISSION: 02/24/2018 23:45 (CDT) PHONE: AGE: 62 [facility]# [id number] GENDER: Male ENCOUNTER PHYSICIAN: Dr. Edilson Fritz M.D. ADMISSION DIAGNOSIS: - Stroke 01 - Left Body (Right Brain) (01.1) Sub acute basal ganglia infarct. EATING: EATING - STEP 1: Does the patient require assistance when eating? Yes. EATING - STEP 2: Does the patient require the assistance of a helper? No, patient only requires an assistive device, O R s/he takes more than reasonable time to eat, OR there is a safety concern, OR s/he requires modifie d food consistency EATING - SCORE: 6-CLAUDIO GROOMING: Comb/brush hair Wash, rinse, and dry face GROOMING - STEP 1: Does the patient require assistance when grooming? Yes. GROOMING - STEP 2: Does the patient require the assistance of a helper? No. The patient only requires an assistive devic e, OR takes more than reasonable time to groom, OR there is a concern for safety as the patient groom s GROOMING - SCORE: 6-CLAUDIO BATHING: Activity did not occur on this shift BATHING - SCORE: 0-UNK DRESSING - UPPER BODY: Activity did not occur on this shift ARTICLES SCORE Total number of steps: 0 DRESSING - UPPER BODY - SCORE: 0-UNK DRESSING - LOWER BODY: Activity did not occur on this shift ARTICLES SCORE Total number of steps: 0 DRESSING - LOWER BODY - SCORE: 0-UNK TOILETING: TOILETING - STEP 1: Does the patient require assistance with toileting? Yes. TOILETING - STEP 2: Does the patient require the assistance of a helper? Yes. TOILETING - STEP 3: How much assistance does the patient require from the helper? Hands-on assistance from the helper TOILETING - STEP 4: Of the 3 tasks: 1) Adjusting clothing prior to use, 2) Cleansing of perineal area, 3) Adjusting clot bernard after use; How many tasks does the patient perform WITHOUT assistance of the helper? Three tasks with steadying assistance from the helper TOILETING - SCORE: 4-MIN BLADDER MANAGEMENT: BLADDER MANAGEMENT - STEP 1: Does the patient control the bladder completely and intentionally without equipment or devices or med ications, and is always continent? No. BLADDER MANAGEMENT - STEP 2: Does the patient require the assistance of a helper? Yes. BLADDER MANAGEMENT - STEP 3: How much assistance does the patient require from the helper? Only set-up of equipment - such as plac ing it within reach of the patient or emptying a device - to maintain either satisfactory voiding pat tern or managing an external device, such as an absorbent pad, ileal device, or catheter BLADDER MANAGEMENT - SCORE: 5-SUP BLADDER MANAGEMENT - FREQUENCY OF ACCIDENTS: BLADDER MANAGEMENT(FA) - STEP 1: How many accidents has the patient had during the current shift? 0 BOWEL MANAGEMENT: Activity did not occur on this shift BOWEL MANAGEMENT - SCORE: 7-IND BOWEL MANAGEMENT - FREQUENCY OF ACCIDENTS: BOWEL MANAGEMENT(FA) - STEP 1: How many accidents has the patient had during the current shift? 0 TRANSFERS: BED, CHAIR, WHEELCHAIR: TRANSFERS: BED, CHAIR, WHEELCHAIR - STEP 1: Does the patient require assistance with bed, chair, or wheelchair transfers? Yes. TRANSFERS: BED, CHAIR, WHEELCHAIR - STEP 2: Does the patient require the assistance of a helper? Yes. TRANSFERS: BED, CHAIR, WHEELCHAIR - STEP 3: How much assistance does the patient require from the helper? Steadying/guiding assistance TRANSFERS: BED, CHAIR, WHEELCHAIR - SCORE: 4-MIN TRANSFERS: TOILET: TRANSFERS: TOILET - STEP 1: Does the patient require assistance with toilet transfers? Yes. TRANSFERS: TOILET - STEP 2: Does the patient require the assistance of a helper? Yes. TRANSFERS: TOILET - STEP 3: How much assistance does the patient require from the helper? Only supervision, cuing, coaxing, OR he lp to set out transfer equipment or to lock brakes and/or lift foot rests TRANSFERS: TOILET - SCORE: 5-SUP TRANSFERS: SHOWER: Activity did not occur on this shift TRANSFERS: SHOWER - SCORE: 0-UNK TRANSFERS: TUB: Activity did not occur on this shift TRANSFERS: TUB - SCORE: 0-UNK LOCOMOTION: WALK: Activity did not occur on this shift LOCOMOTION: WALK - SCORE: 0-UNK LOCOMOTION: WHEELCHAIR: LOCOMOTION: WHEELCHAIR - STEP 1: Does the patient need help to go 150 feet in a wheelchair? Yes. LOCOMOTION: WHEELCHAIR - STEP 2: How much assistance does the patient need from the helper? Only supervision, cuing, or coaxing LOCOMOTION: WHEELCHAIR - SCORE: 5-SUP COMPREHENSION: COMPREHENSION: TYPE: Both COMPREHENSION - STEP 1: Does the patient require help to understand complex and abstract ideas (such as current events, finan gino, discharge planning, medical issues, relationships, etc)? No. COMPREHENSION - STEP 2: Does the patient need extra time, require an assistive device (such as glasses, hearing aids, or an a ugmentative communication system), OR does s/he have mild difficulty expressing complex and abstract ideas (including mild dysarthria or mild word-finding problems)? Yes. COMPREHENSION - SCORE: 6-CLAUDIO EXPRESSION EXPRESSION: TYPE: Both EXPRESSION - STEP 1: Does the patient require help expressing complex and abstract ideas (such as current events, finances , discharge planning, medical issues, relationships, etc)? No. EXPRESSION - STEP 2: Does the patient need extra time, require an assistive device (such as augmentive communication syste m or a communication board), OR does s/he have mild difficulty expressing complex and abstract ideas (including mild dysarthria or mild word-find problems)? Yes. EXPRESSION - SCORE: 6-CLAUDIO SOCIAL INTERACTION: SOCIAL INTERACTION - STEP 1: Does the patient require a helper to interact with others in social and therapeutic situations? No. SOCIAL INTERACTION - STEP 2: Does the patient need extra time in social situations, OR does s/he interact with staff, other patien ts, and family members ONLY in structured environments, OR does s/he require medication for social in teraction? Yes, patient needs extra time SOCIAL INTERACTION - SCORE: 6-CLAUDIO PROBLEM SOLVING: PROBLEM SOLVING - STEP 1: Does the patient need help to solve complex problems such as managing a checking account or confronti ng interpersonal problems? No. PROBLEM SOLVING - STEP 2: Does the patient require extra time to make decisions or solve problems, OR does s/he have slight dif ficulty reading, initiating, or self-correcting in unfamiliar situations? Yes, patient needs extra ti me. PROBLEM SOLVING - SCORE: 6-CLAUDIO MEMORY: MEMORY - STEP 1: Does the patient need help to remember frequently encountered people, daily routines, and executing r equests? No. MEMORY - STEP 2: Does the patient have slight difficulty recognizing frequently encountered people, daily routines, or executing requests without the need for repetition or using self-initiated or environmental cues to remember? Yes. MEMORY - SCORE: 6-CLAUDIO SIGNATURE PANEL: The following modified sections: Eating - Score, Grooming - Score, Bathing - Score, Dressing - Upper Body - Score, Dressing - Lower Body - Score, Toileting - Score, Bladder Management - Score, Bowel Man agement - Score, Transfers: Bed, Chair, Wheelchair - Score, Transfers: Toilet - Score, Transfers: Luz Maria wer - Score, Transfers: Tub - Score, Locomotion: Walk - Score, Locomotion: Wheelchair - Score, Compre hension - Score, Expression - Score, Social Interaction - Score, Problem Solving - Score, Memory - Sc ore were [electronically] signed by Briseyda GuillermoNChu on ThuMar 01 2018 13:29:20 T-0500 (Centra l Daylight Time)
[2018-03-01] MEDS ORDERED: BISACODYL 10 MG RECTAL SUPP PR PRN (14:37)
--- NOTE | 2018-03-01 15:21 | FAST ---
ENCOUNTER DATE AND TIME: 03/01/2018 08:00 (CDT) NAME JAIRO GERMAIN DATE OF : 1955 DATE OF ADMISSION: 02/24/2018 23:45 (CDT) PHONE: AGE: [address] [facility]# [id number] GENDER: Male ENCOUNTER PHYSICIAN: Dr. Edilson Fritz M.D. ADMISSION DIAGNOSIS: - Stroke 01 - Left Body (Right Brain) (01.1) Sub acute basal ganglia infarct. EATING: Activity did not occur on this shift EATING - SCORE: 0-UNK GROOMING: Comb/brush hair Wash, rinse, and dry face Wash, rinse, and dry hands GROOMING - STEP 1: Does the patient require assistance when grooming? Yes. GROOMING - STEP 2: Does the patient require the assistance of a helper? No. The patient only requires an assistive devic e, OR takes more than reasonable time to groom, OR there is a concern for safety as the patient groom s GROOMING - SCORE: 6-CLAUDIO BATHING: Abdomen Buttocks Chest Left arm Left lower leg and foot Left upper leg Perineal area Right arm Right lower leg and foot Right upper leg BATHING - STEP 1: Does the patient require assistance when bathing? Yes. BATHING - STEP 2: Does the patient require the assistance of a helper? Yes. BATHING - STEP 3: How much assistance does the patient require from the helper? Only incidental help such as placement of a wash cloth in his/her hand a few times as s/he bathes OR help to bathe just one or two areas of the body BATHING - SCORE: 4-MIN DRESSING - UPPER BODY: Activity did not occur on this shift ARTICLES SCORE Total number of steps: 0 DRESSING - UPPER BODY - SCORE: 0-UNK DRESSING - LOWER BODY: Underwear (three steps) ARTICLES SCORE Total number of steps: 3 DRESSING - LOWER BODY - STEP 1: Does the patient require help when dressing below the waist? Yes. DRESSING - LOWER BODY - STEP 2: Does the patient require the assistance of a helper? Yes. DRESSING - LOWER BODY - STEP 3: Does the helper touch the patient while dressing? No. DRESSING - LOWER BODY - SCORE: 5-SUP TOILETING: Activity did not occur on this shift TOILETING - SCORE: 0-UNK BLADDER MANAGEMENT: Activity did not occur on this shift BLADDER MANAGEMENT - SCORE: 7-IND BOWEL MANAGEMENT: Activity did not occur on this shift BOWEL MANAGEMENT - SCORE: 7-IND TRANSFERS: BED, CHAIR, WHEELCHAIR: Activity did not occur on this shift TRANSFERS: BED, CHAIR, WHEELCHAIR - SCORE: 0-UNK TRANSFERS: TOILET: Activity did not occur on this shift TRANSFERS: TOILET - SCORE: 0-UNK TRANSFERS: SHOWER: TRANSFERS: SHOWER - STEP 1: Does the patient require assistance with shower transfers? Yes. TRANSFERS: SHOWER - STEP 2: Does the patient require the assistance of a helper? Yes. TRANSFERS: SHOWER - STEP 3: How much assistance does the patient require from the helper? Only incidental help such as contact gu arding or steadying during shower transfers, or help to lift one leg into the shower TRANSFERS: SHOWER - SCORE: 4-MIN TRANSFERS: TUB: Activity did not occur on this shift TRANSFERS: TUB - SCORE: 0-UNK LOCOMOTION: WALK: Activity did not occur on this shift LOCOMOTION: WALK - SCORE: 0-UNK LOCOMOTION: WHEELCHAIR: Activity did not occur on this shift LOCOMOTION: WHEELCHAIR - SCORE: 0-UNK LOCOMOTION: STAIRS: Activity did not occur on this shift LOCOMOTION: STAIRS - SCORE: 0-UNK COMPREHENSION: COMPREHENSION - STEP 1: Does the patient require help to understand complex and abstract ideas (such as current events, finan gino, discharge planning, medical issues, relationships, etc)? No. COMPREHENSION - STEP 2: Does the patient need extra time, require an assistive device (such as glasses, hearing aids, or an a ugmentative communication system), OR does s/he have mild difficulty expressing complex and abstract ideas (including mild dysarthria or mild word-finding problems)? No. COMPREHENSION - SCORE: 7-IND EXPRESSION EXPRESSION: TYPE: Non-Vocal EXPRESSION - STEP 1: Does the patient require help expressing complex and abstract ideas (such as current events, finances , discharge planning, medical issues, relationships, etc)? No. EXPRESSION - STEP 2: Does the patient need extra time, require an assistive device (such as augmentive communication syste m or a communication board), OR does s/he have mild difficulty expressing complex and abstract ideas (including mild dysarthria or mild word-find problems)? No. EXPRESSION - SCORE: 7-IND SOCIAL INTERACTION: SOCIAL INTERACTION - STEP 1: Does the patient require a helper to interact with others in social and therapeutic situations? No. SOCIAL INTERACTION - STEP 2: Does the patient need extra time in social situations, OR does s/he interact with staff, other patien ts, and family members ONLY in structured environments, OR does s/he require medication for social in teraction? No. SOCIAL INTERACTION - SCORE: 7-IND PROBLEM SOLVING: PROBLEM SOLVING - STEP 1: Does the patient need help to solve complex problems such as managing a checking account or confronti ng interpersonal problems? No. PROBLEM SOLVING - STEP 2: Does the patient require extra time to make decisions or solve problems, OR does s/he have slight dif ficulty reading, initiating, or self-correcting in unfamiliar situations? No. PROBLEM SOLVING - SCORE: 7-IND MEMORY: MEMORY - STEP 1: Does the patient need help to remember frequently encountered people, daily routines, and executing r equests? No. MEMORY - STEP 2: Does the patient have slight difficulty recognizing frequently encountered people, daily routines, or executing requests without the need for repetition or using self-initiated or environmental cues to remember? No. MEMORY - SCORE: 7-IND SIGNATURE PANEL: The following modified sections: Eating - Score, Grooming - Score, Bathing - Score, Dressing - Upper Body - Score, Dressing - Lower Body - Score, Toileting - Score, Transfers: Bed, Chair, Wheelchair - S core, Transfers: Toilet - Score, Transfers: Shower - Score, Transfers: Tub - Score, Comprehension - S core, Expression - Score, Social Interaction - Score, Problem Solving - Score, Memory - Score were [e lectronically] signed by IHSAN Harirson on ThuMar 01 2018 14:22:59 T-0500 (Critical access hospital Time)
[2018-03-01] MEDS: ENOXAPARIN 40 MG/0.4 ML SQ SCH (16:40)
[2018-03-01] MEDS: ATORVASTATIN 80 MG TAB PO SCH (20:14)
[2018-03-01] MEDS: DOCUSATE NA/SENNA CONC 1 TAB PO SCH (20:14)
--- NOTE | 2018-03-01 21:53 | R.PN ---
ENCOUNTER DATE AND TIME: 03/01/2018 20:50 (CDT) NAME JAIRO GERMAIN DATE OF : 1955 DATE OF ADMISSION: 02/24/2018 23:45 (CDT) Sub acute basal ganglia infarctCHIEF COMPLAINT: Basal ganglia stroke SUBJECTIVE: Pt denied any Shortness of Breath. Pt denied any depression. Ambulated 550' with contact guard assistance using a rolling walker. VITAL SIGNS Temperature: 97.9 F SBP/DBP: 125/60 Pulse: 62 Resp: 16 MEDICATION ALLERGIES: No Known Drug Allergies (NKDA) ENVIRONMENTAL ALLERGIES: None Known - Substance Allergies None Known - Other Allergies None Known NURSING: - Shower allowing shower - Bladder care per protocol - Skin care per protocol PRECAUTIONS: - Fall Precaution Bed alarm TABS alarm Wheel chair alarm Critical cord compression c-spine ACTIVITIES OOB only with supervision THERAPIES: - Occupational Therapy Evaluate and Treat. Cognitive Retraining. Visual Perceptual Training. - Speech Therapy Cognitive Training. Memory Strategies. Expressive Language Skills. Receptive Language Skills. Speech Intelligibility Training. - Physical Therapy Evaluate and Treat. PHYSICAL EXAM - Gen Alert and awake Lying in bed No apparent distress Oriented to: person, time, and place - Vital Signs Temperature: 97.9 F SBP/DBP: 131/64 Pulse: 65 Resp: 16 Vital signs stable, afebrile - Skin No skin breakdown. Normacephalic - Eyes No abnormalities - ENMT No abnormalities - Neck No abnormalities - CVS RRR - Chest Clear - Abd Soft - GI nondistended Deferred - No abnormalities - Ext No significant edema - MSK 4+/5 weakness in left upper and lower extremity - Neuro 4/5 strength left upper and lower extremities. - Psych No abnormalities ASSESSMENT: Pt. is a 62 yo Right-handed white male.On 02/19/2018 Pt. presented to [facility] with sudden onset of left-side weakness.On 02/19/2018 he was admitted to [facility] with diagnosis Sub acute basal ganglia infarct.His impairment category is Stroke 01 - Left Emir dy (Right Brain) (01.1).Pre-morbidly, Pt. was independent/mod-I in Transfers Control, Communication, Social Cognition, Self-Care, Locomotion, and Sphincter Control; and he had good Sphincter Control.Cur rently, he has deficits of Transfers Control, Balance, Self-Care, Locomotion, Endurance, and Safety A wareness.Pt. is now referred to [facility] for acute in-patient rehabilitation in order to maximize patient's functional independence in activities of daily living, strength, ROM, and mobility.- Rehab Goal Patient has realistic goal of being discharged at assistance level 6-Nate to reside at Home with Fam evelyne/Relatives. MDM/PLAN: - Diet Type Continue Heart healthy for Dementia, TBI, Stroke, or others - Physical Therapy Gait dysfunction - to improve, our physical therapists will perform initial evaluation of pt's statu s upon admission and devise an individualized program for Gait Training, and Wheel Chair mobility Inability to transfer - to improve, our physical therapists will perform initial evaluation of pt's status upon admission and devise an individualized program for Bed mobility Need for home safety evaluation - to improve, our physical therapists will perform initial evaluatio n of pt's status upon admission and devise an individualized program for Home Evaluation Need in caregiver upon discharge - to improve, our physical therapists will perform initial evaluati on of pt's status upon admission and devise an individualized program for Caregiver Training New precaution - to improve, our physical therapists will perform initial evaluation of pt's status upon admission and devise an individualized program for Patient precaution education Edema - to improve, our physical therapists will perform initial evaluation of pt's status upon admis mason and devise an individualized program for Elevation Training, and Lymphedema Therapy Pain - to improve, our physical therapists will perform initial evaluation of pt's status upon admis mason and devise an individualized program for Modalities Poor balance - to improve, our physical therapists will perform initial evaluation of pt's status up on admission and devise an individualized program for Balance Training Poor endurance - to improve, our physical therapists will perform initial evaluation of pt's status upon admission and devise an individualized program for Endurance Training Weakness - to improve, our physical therapists will perform initial evaluation of pt's status upon a dmission and devise an individualized program for Aquatic Therapy, Neuromuscular Reeducation, and Str engthening Achieving independence - to improve, our physical therapists will perform initial evaluation of pt's status upon admission and devise an individualized program for Community Reintegration Activities - Diet - Liquid Texture Continue Regular - Tube Feed Continue N/A - Bladder care per protocol - Weight Bearing Precaution WBAT left LE - Fall Precaution Bed alarm TABS alarm Wheel chair alarm Critical cord compression c-spine - Skin care per protocol - Diet - Solid Texture Continue Regular - Shower allowing shower - Occupational Therapy ADL deficits - to improve, our occupation therapists will perform initial evaluation of pt's status upon admission and devise an individualized program for Bathing, Bed mobility, Community Reintegratio n, Cooking, Dressing, Eating, Fine Motor Skills, Grooming, Homemaking, Kitchen Mobility, Laundry, Pat ient Education, Safety Awareness, Splinting - Positioning, Transfers(Toilet, Tub, Shower), and Wheel Chair Management Need for primary care provider - to improve, our occupation therapists will perform initial evaluation of pt's status upon admission and devise an individualized program for Caregiver Training Weakness - to improve, our occupation therapists will perform initial evaluation of pt's status upon admission and devise an individualized program for Aquatic Therapy, Balance, Endurance, UE ROM, and UE strengthening FUNCTIONAL STATUS: UPDATED AT WEEKLY TEAM CONFERENCE - Bladder Same accident frequency: 7-Ind - No accidents in the past 7 days - Bowel Same accident frequency: 7-Ind - No accidents in the past 7 days - Walking Same score based on distance walked: 3(>=150ft) - Wheelchair Same score based on distance traveled: 0(N/A) FUNCTIONAL STATUS: - Self-Care A. Eating sup B. Grooming sup C. Bathing sup D. Dressing - Upper sup E. Dressing - Lower sup F. Toileting Na - Sphincter Control G: Bladder control Ind H: Bowel control Ind - Transfers Control I. Bed/Chair/Wheelchair Na J. Toilet Na K. Tub/Shower ADNO - Locomotion L. Walk/Wheelchair (B) Na M. Stairs ADNO - Communication N. Comprehension (B) Nate O. Expression (B) Nate - Social Cognition P. Social Interaction Nate Q. Problem Solving Nate R. Memory Nate - Endurance Fair - Balance Poor - Safety Awareness Fair [facility] DEFICITS: Transfers Control, Balance, Self-Care, Locomotion, Endurance, and Safety Awareness SIGNATURE PANEL: (CDT)
[2018-03-02] MEDS: ASPIRIN EC 81 MG TAB PO SCH (08:01)
[2018-03-02] MEDS: VALSARTAN 160 MG TAB PO SCH ×2 (08:01→20:19)
[2018-03-02] MEDS: CLOPIDOGREL 75 MG TABLET PO SCH (08:01)
[2018-03-02] MEDS: TRAMADOL HCL 50 MG TAB PO PRN ×3 (08:01→20:19)
--- NOTE | 2018-03-02 11:29 | FAST ---
ENCOUNTER DATE AND TIME: 02/25/2018 08:00 (CDT) NAME JAIRO GERMAIN DATE OF : 1955 DATE OF ADMISSION: 02/24/2018 23:45 (CDT) PHONE: AGE: 62 [facility]# [id number] GENDER: Male ENCOUNTER PHYSICIAN: Dr. Edilson Fritz M.D. ADMISSION DIAGNOSIS: - Stroke 01 - Left Body (Right Brain) (01.1) Sub acute basal ganglia infarct. EATING: Activity did not occur on this shift EATING - SCORE: 0-UNK GROOMING: Comb/brush hair Oral care Wash, rinse, and dry face Wash, rinse, and dry hands GROOMING - STEP 1: Does the patient require assistance when grooming? No. GROOMING - SCORE: 7-IND BATHING: Abdomen Buttocks Chest Left arm Left lower leg and foot Left upper leg Perineal area Right arm Right lower leg and foot Right upper leg BATHING - STEP 1: Does the patient require assistance when bathing? Yes. BATHING - STEP 2: Does the patient require the assistance of a helper? Yes. BATHING - STEP 3: How much assistance does the patient require from the helper? More than just incidental help BATHING - STEP 4: What percent of the body parts did the patient bathe WITHOUT the helper? Half or more of the body par ts BATHING - SCORE: 3-MOD DRESSING - UPPER BODY: ARTICLES SCORE Total number of steps: 0 DRESSING - UPPER BODY - STEP 1: Does the patient require help when dressing above the waist? No. DRESSING - UPPER BODY - SCORE: 7-IND DRESSING - LOWER BODY: Sock - Left foot (one step) Sock - Right foot (one step) Underwear (three steps) ARTICLES SCORE Total number of steps: 5 DRESSING - LOWER BODY - STEP 1: Does the patient require help when dressing below the waist? Yes. DRESSING - LOWER BODY - STEP 2: Does the patient require the assistance of a helper? Yes. DRESSING - LOWER BODY - STEP 3: Does the helper touch the patient while dressing? Yes. DRESSING - LOWER BODY - STEP 4: How many of the total steps does the patient complete on his/her own? 0 DRESSING - LOWER BODY - STEP 5: Does patient require total assistance for dressing below the waist such as the helper holding clothin g and performing basically all the activities? Yes. DRESSING - LOWER BODY - SCORE: 1-DEP TOILETING: Activity did not occur on this shift TOILETING - SCORE: 0-UNK BLADDER MANAGEMENT: Activity did not occur on this shift BLADDER MANAGEMENT - SCORE: 7-IND BOWEL MANAGEMENT: Activity did not occur on this shift BOWEL MANAGEMENT - SCORE: 7-IND TRANSFERS: BED, CHAIR, WHEELCHAIR: Activity did not occur on this shift TRANSFERS: BED, CHAIR, WHEELCHAIR - SCORE: 0-UNK TRANSFERS: TOILET: Activity did not occur on this shift TRANSFERS: TOILET - SCORE: 0-UNK TRANSFERS: SHOWER: TRANSFERS: SHOWER - STEP 1: Does the patient require assistance with shower transfers? Yes. TRANSFERS: SHOWER - STEP 2: Does the patient require the assistance of a helper? Yes. TRANSFERS: SHOWER - STEP 3: How much assistance does the patient require from the helper? More than incidental help TRANSFERS: SHOWER - STEP 4: How much more help does the patient require from the helper? Lifting the patient up AND down from the wheelchair onto the shower chair TRANSFERS: SHOWER - SCORE: 2-MAX TRANSFERS: TUB: Activity did not occur on this shift TRANSFERS: TUB - SCORE: 0-UNK LOCOMOTION: WALK: Activity did not occur on this shift LOCOMOTION: WALK - SCORE: 0-UNK LOCOMOTION: WHEELCHAIR: Activity did not occur on this shift LOCOMOTION: WHEELCHAIR - SCORE: 0-UNK LOCOMOTION: STAIRS: Activity did not occur on this shift LOCOMOTION: STAIRS - SCORE: 0-UNK COMPREHENSION: COMPREHENSION: TYPE: Both COMPREHENSION - STEP 1: Does the patient require help to understand complex and abstract ideas (such as current events, finan gino, discharge planning, medical issues, relationships, etc)? No. COMPREHENSION - STEP 2: Does the patient need extra time, require an assistive device (such as glasses, hearing aids, or an a ugmentative communication system), OR does s/he have mild difficulty expressing complex and abstract ideas (including mild dysarthria or mild word-finding problems)? Yes. COMPREHENSION - SCORE: 6-CLAUDIO EXPRESSION EXPRESSION: TYPE: Both EXPRESSION - STEP 1: Does the patient require help expressing complex and abstract ideas (such as current events, finances , discharge planning, medical issues, relationships, etc)? No. EXPRESSION - STEP 2: Does the patient need extra time, require an assistive device (such as augmentive communication syste m or a communication board), OR does s/he have mild difficulty expressing complex and abstract ideas (including mild dysarthria or mild word-find problems)? Yes. EXPRESSION - SCORE: 6-CLAUDIO SOCIAL INTERACTION: SOCIAL INTERACTION - STEP 1: Does the patient require a helper to interact with others in social and therapeutic situations? No. SOCIAL INTERACTION - STEP 2: Does the patient need extra time in social situations, OR does s/he interact with staff, other patien ts, and family members ONLY in structured environments, OR does s/he require medication for social in teraction? Yes, patient needs extra time SOCIAL INTERACTION - SCORE: 6-CLAUDIO PROBLEM SOLVING: PROBLEM SOLVING - STEP 1: Does the patient need help to solve complex problems such as managing a checking account or confronti ng interpersonal problems? Yes. PROBLEM SOLVING - STEP 2: Does the patient solve basic routine problems half or more of the time? Yes. PROBLEM SOLVING - STEP 3: How often does the patient need help to solve basic routine problems? Less than 10% of the time PROBLEM SOLVING - SCORE: 5-SUP MEMORY: MEMORY - STEP 1: Does the patient need help to remember frequently encountered people, daily routines, and executing r equests? Yes. MEMORY - STEP 2: How often does the patient need help to remember frequently encountered people, daily routines, and e xecuting requests? Less than 10% of the time MEMORY - SCORE: 5-SUP SIGNATURE PANEL: The following modified sections: Eating - Score, Grooming - Score, Bathing - Score, Dressing - Upper Body - Score, Dressing - Lower Body - Score, Toileting - Score, Transfers: Bed, Chair, Wheelchair - S core, Transfers: Toilet - Score, Transfers: Tub - Score, Transfers: Shower - Score, Comprehension - S core, Expression - Score, Social Interaction - Score, Problem Solving - Score, Memory - Score were [e lectronically] signed by Melissa Nichols OT on ThuMar 02 2018 10:31:08 T-0500 ([facility] bren)
--- NOTE | 2018-03-02 15:13 | FAST ---
ENCOUNTER DATE AND TIME: 03/02/2018 08:00 (CDT) NAME JAIRO GERMAIN DATE OF : 1955 DATE OF ADMISSION: 02/24/2018 23:45 (CDT) PHONE: AGE: 62 [facility]# [id number] GENDER: Male ENCOUNTER PHYSICIAN: Dr. Edilson Fritz M.D. ADMISSION DIAGNOSIS: - Stroke 01 - Left Body (Right Brain) (01.1) Sub acute basal ganglia infarct. EATING: Activity did not occur on this shift EATING - SCORE: 0-UNK GROOMING: Activity did not occur on this shift GROOMING - SCORE: 0-UNK BATHING: Activity did not occur on this shift BATHING - SCORE: 0-UNK DRESSING - UPPER BODY: Activity did not occur on this shift ARTICLES SCORE Total number of steps: 0 DRESSING - UPPER BODY - SCORE: 0-UNK DRESSING - LOWER BODY: Activity did not occur on this shift ARTICLES SCORE Total number of steps: 0 DRESSING - LOWER BODY - SCORE: 0-UNK TOILETING: Activity did not occur on this shift TOILETING - SCORE: 0-UNK BLADDER MANAGEMENT: Activity did not occur on this shift BLADDER MANAGEMENT - SCORE: 7-IND BOWEL MANAGEMENT: Activity did not occur on this shift BOWEL MANAGEMENT - SCORE: 7-IND TRANSFERS: BED, CHAIR, WHEELCHAIR: Activity did not occur on this shift TRANSFERS: BED, CHAIR, WHEELCHAIR - SCORE: 0-UNK TRANSFERS: TOILET: Activity did not occur on this shift TRANSFERS: TOILET - SCORE: 0-UNK TRANSFERS: SHOWER: Activity did not occur on this shift TRANSFERS: SHOWER - SCORE: 0-UNK TRANSFERS: TUB: Activity did not occur on this shift TRANSFERS: TUB - SCORE: 0-UNK LOCOMOTION: WALK: Activity did not occur on this shift LOCOMOTION: WALK - SCORE: 0-UNK LOCOMOTION: WHEELCHAIR: Activity did not occur on this shift LOCOMOTION: WHEELCHAIR - SCORE: 0-UNK LOCOMOTION: STAIRS: Activity did not occur on this shift LOCOMOTION: STAIRS - SCORE: 0-UNK COMPREHENSION: COMPREHENSION - SCORE: 0-UNK EXPRESSION EXPRESSION - SCORE: 0-UNK SOCIAL INTERACTION: SOCIAL INTERACTION - SCORE: 0-UNK PROBLEM SOLVING: PROBLEM SOLVING - SCORE: 0-UNK MEMORY: MEMORY - SCORE: 0-UNK SIGNATURE PANEL: The following modified sections: Eating - Score, Grooming - Score, Bathing - Score, Dressing - Upper Body - Score, Dressing - Lower Body - Score, Toileting - Score, Transfers: Bed, Chair, Wheelchair - S core, Transfers: Toilet - Score, Transfers: Shower - Score, Transfers: Tub - Score, Comprehension - S core, Expression - Score, Social Interaction - Score, Problem Solving - Score, Memory - Score were [e lectronically] signed by IHSAN Harrison on ThuMar 02 2018 14:15:47 [facility]-0500 ([facility] Time)
--- NOTE | 2018-03-02 15:57 | FAST ---
SHIFT START DATE/TIME: 03/02/2018 07:00 (CDT) SHIFT END DATE/TIME: 03/02/2018 19:00 (CDT) NAME JAIRO GERMAIN DATE OF : 1955 DATE OF ADMISSION: 02/24/2018 23:45 (CDT) PHONE: AGE: 62 [facility]# [id number] GENDER: Male ENCOUNTER PHYSICIAN: Dr. Edilson Fritz M.D. ADMISSION DIAGNOSIS: - Stroke 01 - Left Body (Right Brain) (01.1) Sub acute basal ganglia infarct. EATING: EATING - STEP 1: Does the patient require assistance when eating? Yes. EATING - STEP 2: Does the patient require the assistance of a helper? No, patient only requires an assistive device, O R s/he takes more than reasonable time to eat, OR there is a safety concern, OR s/he requires modifie d food consistency EATING - SCORE: 6-CLAUDIO GROOMING: Comb/brush hair Wash, rinse, and dry face Wash, rinse, and dry hands GROOMING - STEP 1: Does the patient require assistance when grooming? Yes. GROOMING - STEP 2: Does the patient require the assistance of a helper? No. The patient only requires an assistive devic e, OR takes more than reasonable time to groom, OR there is a concern for safety as the patient groom s GROOMING - SCORE: 6-CLAUDIO BATHING: Activity did not occur on this shift BATHING - SCORE: 0-UNK DRESSING - UPPER BODY: Activity did not occur on this shift ARTICLES SCORE Total number of steps: 0 DRESSING - UPPER BODY - SCORE: 0-UNK DRESSING - LOWER BODY: Activity did not occur on this shift ARTICLES SCORE Total number of steps: 0 DRESSING - LOWER BODY - SCORE: 0-UNK TOILETING: TOILETING - STEP 1: Does the patient require assistance with toileting? Yes. TOILETING - STEP 2: Does the patient require the assistance of a helper? Yes. TOILETING - STEP 3: How much assistance does the patient require from the helper? Hands-on assistance from the helper TOILETING - STEP 4: Of the 3 tasks: 1) Adjusting clothing prior to use, 2) Cleansing of perineal area, 3) Adjusting clot bernard after use; How many tasks does the patient perform WITHOUT assistance of the helper? Three tasks with steadying assistance from the helper TOILETING - SCORE: 4-MIN BLADDER MANAGEMENT: BLADDER MANAGEMENT - STEP 1: Does the patient control the bladder completely and intentionally without equipment or devices or med ications, and is always continent? No. BLADDER MANAGEMENT - STEP 2: Does the patient require the assistance of a helper? Yes. BLADDER MANAGEMENT - STEP 3: How much assistance does the patient require from the helper? Only set-up of equipment - such as plac ing it within reach of the patient or emptying a device - to maintain either satisfactory voiding pat tern or managing an external device, such as an absorbent pad, ileal device, or catheter BLADDER MANAGEMENT - SCORE: 5-SUP BLADDER MANAGEMENT - FREQUENCY OF ACCIDENTS: BLADDER MANAGEMENT(FA) - STEP 1: How many accidents has the patient had during the current shift? 0 BOWEL MANAGEMENT: BOWEL MANAGEMENT - STEP 1: Does the patient control bowels completely and intentionally without equipment devices or medications AND is always continent? No. BOWEL MANAGEMENT - STEP 2: Does the patient require the assistance of a helper? No, patient requires medication for control such as stool softeners, suppositories, laxatives, enemas, or OTC medications BOWEL MANAGEMENT - SCORE: 6-CLAUDIO BOWEL MANAGEMENT - FREQUENCY OF ACCIDENTS: BOWEL MANAGEMENT(FA) - STEP 1: How many accidents has the patient had during the current shift? 0 TRANSFERS: BED, CHAIR, WHEELCHAIR: TRANSFERS: BED, CHAIR, WHEELCHAIR - STEP 1: Does the patient require assistance with bed, chair, or wheelchair transfers? Yes. TRANSFERS: BED, CHAIR, WHEELCHAIR - STEP 2: Does the patient require the assistance of a helper? Yes. TRANSFERS: BED, CHAIR, WHEELCHAIR - STEP 3: How much assistance does the patient require from the helper? Steadying/guiding assistance TRANSFERS: BED, CHAIR, WHEELCHAIR - SCORE: 4-MIN TRANSFERS: TOILET: TRANSFERS: TOILET - STEP 1: Does the patient require assistance with toilet transfers? Yes. TRANSFERS: TOILET - STEP 2: Does the patient require the assistance of a helper? No. Patient only requires an assistive device kim ch as a grab bar or special seat, OR s/he takes more than reasonable time to perform toilet transfers , OR there is a safety concern when s/he performs toilet transfers. TRANSFERS: TOILET - SCORE: 6-CLAUDIO TRANSFERS: SHOWER: Activity did not occur on this shift TRANSFERS: SHOWER - SCORE: 0-UNK TRANSFERS: TUB: Activity did not occur on this shift TRANSFERS: TUB - SCORE: 0-UNK LOCOMOTION: WALK: Activity did not occur on this shift LOCOMOTION: WALK - SCORE: 0-UNK LOCOMOTION: WHEELCHAIR: LOCOMOTION: WHEELCHAIR - STEP 1: Does the patient need help to go 150 feet in a wheelchair? Yes. LOCOMOTION: WHEELCHAIR - STEP 2: How much assistance does the patient need from the helper? Only supervision, cuing, or coaxing LOCOMOTION: WHEELCHAIR - SCORE: 5-SUP COMPREHENSION: COMPREHENSION - STEP 1: Does the patient require help to understand complex and abstract ideas (such as current events, finan gino, discharge planning, medical issues, relationships, etc)? No. COMPREHENSION - STEP 2: Does the patient need extra time, require an assistive device (such as glasses, hearing aids, or an a ugmentative communication system), OR does s/he have mild difficulty expressing complex and abstract ideas (including mild dysarthria or mild word-finding problems)? Yes. COMPREHENSION - SCORE: 6-CLAUDIO EXPRESSION EXPRESSION - STEP 1: Does the patient require help expressing complex and abstract ideas (such as current events, finances , discharge planning, medical issues, relationships, etc)? No. EXPRESSION - STEP 2: Does the patient need extra time, require an assistive device (such as augmentive communication syste m or a communication board), OR does s/he have mild difficulty expressing complex and abstract ideas (including mild dysarthria or mild word-find problems)? Yes. EXPRESSION - SCORE: 6-CLAUDIO SOCIAL INTERACTION: SOCIAL INTERACTION - STEP 1: Does the patient require a helper to interact with others in social and therapeutic situations? No. SOCIAL INTERACTION - STEP 2: Does the patient need extra time in social situations, OR does s/he interact with staff, other patien ts, and family members ONLY in structured environments, OR does s/he require medication for social in teraction? No. SOCIAL INTERACTION - SCORE: 7-IND PROBLEM SOLVING: PROBLEM SOLVING - STEP 1: Does the patient need help to solve complex problems such as managing a checking account or confronti ng interpersonal problems? No. PROBLEM SOLVING - STEP 2: Does the patient require extra time to make decisions or solve problems, OR does s/he have slight dif ficulty reading, initiating, or self-correcting in unfamiliar situations? Yes, patient needs extra ti me. PROBLEM SOLVING - SCORE: 6-CLAUDIO MEMORY: MEMORY - STEP 1: Does the patient need help to remember frequently encountered people, daily routines, and executing r equests? No. MEMORY - STEP 2: Does the patient have slight difficulty recognizing frequently encountered people, daily routines, or executing requests without the need for repetition or using self-initiated or environmental cues to remember? Yes. MEMORY - SCORE: 6-CLAUDIO SIGNATURE PANEL: The following modified sections: Eating - Score, Grooming - Score, Bathing - Score, Dressing - Upper Body - Score, Dressing - Lower Body - Score, Toileting - Score, Bladder Management - Score, Bowel Man agement - Score, Transfers: Bed, Chair, Wheelchair - Score, Transfers: Toilet - Score, Transfers: Luz Maria wer - Score, Transfers: Tub - Score, Locomotion: Walk - Score, Locomotion: Wheelchair - Score, Compre hension - Score, Expression - Score, Social Interaction - Score, Problem Solving - Score, Memory - Sc ore were [electronically] signed by Briseyda GuillermoNChu on ThuMar 02 2018 14:59:32 T-0500 ([facility])
--- NOTE | 2018-03-02 16:05 | FAST ---
ENCOUNTER DATE AND TIME: 03/01/2018 08:00 (CDT) NAME JAIRO GERMAIN DATE OF : 1955 DATE OF ADMISSION: 02/24/2018 23:45 (CDT) PHONE: AGE: 62 [facility]# [id number] GENDER: Male ENCOUNTER PHYSICIAN: Dr. Edilson Fritz M.D. ADMISSION DIAGNOSIS: - Stroke 01 - Left Body (Right Brain) (01.1) Sub acute basal ganglia infarct. EATING: Activity did not occur on this shift EATING - SCORE: 0-UNK GROOMING: Activity did not occur on this shift GROOMING - SCORE: 0-UNK BATHING: Activity did not occur on this shift BATHING - SCORE: 0-UNK DRESSING - UPPER BODY: Activity did not occur on this shift Patient is not dressing in public clothing ARTICLES SCORE Total number of steps: 0 DRESSING - UPPER BODY - SCORE: 0-UNK DRESSING - LOWER BODY: Activity did not occur on this shift Patient is not dressing in public clothing ARTICLES SCORE Total number of steps: 0 DRESSING - LOWER BODY - SCORE: 0-UNK TOILETING: Activity did not occur on this shift TOILETING - SCORE: 0-UNK BLADDER MANAGEMENT: Activity did not occur on this shift BLADDER MANAGEMENT - SCORE: 7-IND BOWEL MANAGEMENT: Activity did not occur on this shift BOWEL MANAGEMENT - SCORE: 7-IND TRANSFERS: BED, CHAIR, WHEELCHAIR: TRANSFERS: BED, CHAIR, WHEELCHAIR - STEP 1: Does the patient require assistance with bed, chair, or wheelchair transfers? Yes. TRANSFERS: BED, CHAIR, WHEELCHAIR - STEP 2: Does the patient require the assistance of a helper? Yes. TRANSFERS: BED, CHAIR, WHEELCHAIR - STEP 3: How much assistance does the patient require from the helper? Lifting of the legs TRANSFERS: BED, CHAIR, WHEELCHAIR - STEP 4: How many legs does the patient require the helper to lift? both legs TRANSFERS: BED, CHAIR, WHEELCHAIR - SCORE: 3-MOD TRANSFERS: TOILET: Activity did not occur on this shift TRANSFERS: TOILET - SCORE: 0-UNK TRANSFERS: SHOWER: Activity did not occur on this shift TRANSFERS: SHOWER - SCORE: 0-UNK TRANSFERS: TUB: Activity did not occur on this shift TRANSFERS: TUB - SCORE: 0-UNK LOCOMOTION: WALK: LOCOMOTION: WALK - STEP 1: Does the patient need help to walk 150 feet? Yes. LOCOMOTION: WALK - STEP 2: How much assistance does the patient require to walk a minimum of 150 feet? Only incidental help such as contact guarding or steadying LOCOMOTION: WALK - SCORE: 4-MIN LOCOMOTION: WHEELCHAIR: LOCOMOTION: WHEELCHAIR - STEP 1: Does the patient need help to go 150 feet in a wheelchair? Yes. LOCOMOTION: WHEELCHAIR - STEP 2: How much assistance does the patient need from the helper? Only supervision, cuing, or coaxing LOCOMOTION: WHEELCHAIR - SCORE: 5-SUP LOCOMOTION: STAIRS: Activity did not occur on this shift LOCOMOTION: STAIRS - SCORE: 0-UNK COMPREHENSION: COMPREHENSION - SCORE: 0-UNK EXPRESSION EXPRESSION - SCORE: 0-UNK SOCIAL INTERACTION: SOCIAL INTERACTION - SCORE: 0-UNK PROBLEM SOLVING: PROBLEM SOLVING - SCORE: 0-UNK MEMORY: MEMORY - SCORE: 0-UNK SIGNATURE PANEL: The following modified sections: Transfers: Bed, Chair, Wheelchair - Score, Transfers: Toilet - Score , Locomotion: Walk - Score, Locomotion: Wheelchair - Score, Locomotion: Stairs - Score were [electron marta] signed by Maurisio Estrella PTA on ThuMar 02 2018 15:07:04 GMT-0500 (Central Daylight Time)
--- NOTE | 2018-03-02 16:10 | FAST ---
ENCOUNTER DATE AND TIME: 03/02/2018 08:00 (CDT) NAME JAIRO GERMAIN DATE OF : 1955 DATE OF ADMISSION: 02/24/2018 23:45 (CDT) PHONE: AGE: [address] [facility]# [id number] GENDER: Male ENCOUNTER PHYSICIAN: Dr. Edilson Fritz M.D. ADMISSION DIAGNOSIS: - Stroke 01 - Left Body (Right Brain) (01.1) Sub acute basal ganglia infarct. EATING: Activity did not occur on this shift EATING - SCORE: 0-UNK GROOMING: Activity did not occur on this shift GROOMING - SCORE: 0-UNK BATHING: Activity did not occur on this shift BATHING - SCORE: 0-UNK DRESSING - UPPER BODY: Activity did not occur on this shift Patient is not dressing in public clothing ARTICLES SCORE Total number of steps: 0 DRESSING - UPPER BODY - SCORE: 0-UNK DRESSING - LOWER BODY: Activity did not occur on this shift Patient is not dressing in public clothing ARTICLES SCORE Total number of steps: 0 DRESSING - LOWER BODY - SCORE: 0-UNK TOILETING: Activity did not occur on this shift TOILETING - SCORE: 0-UNK BLADDER MANAGEMENT: Activity did not occur on this shift BLADDER MANAGEMENT - SCORE: 7-IND BOWEL MANAGEMENT: Activity did not occur on this shift BOWEL MANAGEMENT - SCORE: 7-IND TRANSFERS: BED, CHAIR, WHEELCHAIR: TRANSFERS: BED, CHAIR, WHEELCHAIR - STEP 1: Does the patient require assistance with bed, chair, or wheelchair transfers? Yes. TRANSFERS: BED, CHAIR, WHEELCHAIR - STEP 2: Does the patient require the assistance of a helper? Yes. TRANSFERS: BED, CHAIR, WHEELCHAIR - STEP 3: How much assistance does the patient require from the helper? Only supervision TRANSFERS: BED, CHAIR, WHEELCHAIR - SCORE: 5-SUP TRANSFERS: TOILET: Activity did not occur on this shift TRANSFERS: TOILET - SCORE: 0-UNK TRANSFERS: SHOWER: Activity did not occur on this shift TRANSFERS: SHOWER - SCORE: 0-UNK TRANSFERS: TUB: Activity did not occur on this shift TRANSFERS: TUB - SCORE: 0-UNK LOCOMOTION: WALK: Activity did not occur on this shift LOCOMOTION: WALK - SCORE: 0-UNK LOCOMOTION: WHEELCHAIR: Activity did not occur on this shift LOCOMOTION: WHEELCHAIR - SCORE: 0-UNK LOCOMOTION: STAIRS: Activity did not occur on this shift LOCOMOTION: STAIRS - SCORE: 0-UNK COMPREHENSION: COMPREHENSION - SCORE: 0-UNK EXPRESSION EXPRESSION - SCORE: 0-UNK SOCIAL INTERACTION: SOCIAL INTERACTION - SCORE: 0-UNK PROBLEM SOLVING: PROBLEM SOLVING - SCORE: 0-UNK MEMORY: MEMORY - SCORE: 0-UNK SIGNATURE PANEL: The following modified sections: Transfers: Bed, Chair, Wheelchair - Score, Transfers: Toilet - Score , Locomotion: Walk - Score, Locomotion: Wheelchair - Score, Locomotion: Stairs - Score were [electron ically] signed by Maurisio Estrella PTA on ThuMar 02 2018 15:07:59 GMT-0500 (Central Daylight Time)
[2018-03-02] MEDS: ENOXAPARIN 40 MG/0.4 ML SQ SCH (16:40)
--- NOTE | 2018-03-02 19:16 | R.PN ---
ENCOUNTER DATE AND TIME: 03/02/2018 18:14 (CDT) NAME JAIRO GERMAIN DATE OF : 1955 DATE OF ADMISSION: 02/24/2018 23:45 (CDT) Sub acute basal ganglia infarctCHIEF COMPLAINT: Basal ganglia stroke SUBJECTIVE: Pt denied any Shortness of Breath. Pt denied any depression. Bed mobility was done with max to moderate assistance. Ambulated 550' with contact guard assistance using a rolling walker. VITAL SIGNS Temperature: 97.4 F SBP/DBP: 128/66 Pulse: 58 Resp: 16 MEDICATION ALLERGIES: No Known Drug Allergies (NKDA) ENVIRONMENTAL ALLERGIES: None Known - Substance Allergies None Known - Other Allergies None Known NURSING: - Shower allowing shower - Bladder care per protocol - Skin care per protocol PRECAUTIONS: - Fall Precaution Bed alarm TABS alarm Wheel chair alarm Critical cord compression c-spine ACTIVITIES OOB only with supervision THERAPIES: - Occupational Therapy Evaluate and Treat. Cognitive Retraining. Visual Perceptual Training. - Speech Therapy Cognitive Training. Memory Strategies. Expressive Language Skills. Receptive Language Skills. Speech Intelligibility Training. - Physical Therapy Evaluate and Treat. PHYSICAL EXAM - Gen Alert and awake Lying in bed No apparent distress Oriented to: person, time, and place - Skin No skin breakdown. Normacephalic - Eyes No abnormalities - ENMT No abnormalities - Neck No abnormalities - CVS RRR - Chest Clear - Abd Soft - GI nondistended Deferred - No abnormalities - Ext No significant edema - MSK 4+/5 weakness in left upper and lower extremity - Neuro 4/5 strength left upper and lower extremities. - Psych No abnormalities ASSESSMENT: Pt. is a 62 yo Right-handed white male.On 02/19/2018 Pt. presented to [facility] with sudden onset of left-side weakness.On 02/19/[address] [facility] with diagnosis Sub acute basal ganglia infarct.His impairment category is Stroke 01 - Left Emir dy (Right Brain) (01.1).Pre-morbidly, Pt. was independent/mod-I in Transfers Control, Communication, Social Cognition, Self-Care, Locomotion, and Sphincter Control; and he had good Sphincter Control.Cur rently, he has deficits of Transfers Control, Balance, Self-Care, Locomotion, Endurance, and Safety A wareness.Pt. is now referred to [facility] for acute in-patient rehabilitation in order to maximize patient's functional independence in activities of daily living, strength, ROM, and mobility.- Rehab Goal Patient has realistic goal of being discharged at assistance level 6-Nate to reside at Home with Fam evelyne/Relatives. MDM/PLAN: - Diet Type Continue Heart healthy for Dementia, TBI, Stroke, or others - Physical Therapy Gait dysfunction - to improve, our physical therapists will perform initial evaluation of pt's statu s upon admission and devise an individualized program for Gait Training, and Wheel Chair mobility Inability to transfer - to improve, our physical therapists will perform initial evaluation of pt's status upon admission and devise an individualized program for Bed mobility Need for home safety evaluation - to improve, our physical therapists will perform initial evaluatio n of pt's status upon admission and devise an individualized program for Home Evaluation Need in caregiver upon discharge - to improve, our physical therapists will perform initial evaluati on of pt's status upon admission and devise an individualized program for Caregiver Training New precaution - to improve, our physical therapists will perform initial evaluation of pt's status upon admission and devise an individualized program for Patient precaution education Edema - to improve, our physical therapists will perform initial evaluation of pt's status upon admi ssion and devise an individualized program for Elevation Training, and Lymphedema Therapy Pain - to improve, our physical therapists will perform initial evaluation of pt's status upon admis mason and devise an individualized program for Modalities Poor balance - to improve, our physical therapists will perform initial evaluation of pt's status up on admission and devise an individualized program for Balance Training Poor endurance - to improve, our physical therapists will perform initial evaluation of pt's status upon admission and devise an individualized program for Endurance Training Weakness - to improve, our physical therapists will perform initial evaluation of pt's status upon a dmission and devise an individualized program for Aquatic Therapy, Neuromuscular Reeducation, and Str engthening Achieving independence - to improve, our physical therapists will perform initial evaluation of pt's status upon admission and devise an individualized program for Community Reintegration Activities - Diet - Liquid Texture Continue Regular - Tube Feed Continue N/A - Bladder care per protocol - Weight Bearing Precaution WBAT left LE - Fall Precaution Bed alarm TABS alarm Wheel chair alarm Critical cord compression c-spine - Skin care per protocol - Diet - Solid Texture Continue Regular - Shower allowing shower - Occupational Therapy ADL deficits - to improve, our occupation therapists will perform initial evaluation of pt's status upon admission and devise an individualized program for Bathing, Bed mobility, Community Reintegratio n, Cooking, Dressing, Eating, Fine Motor Skills, Grooming, Homemaking, Kitchen Mobility, Laundry, Pat ient Education, Safety Awareness, Splinting - Positioning, Transfers(Toilet, Tub, Shower), and Wheel Chair Management Need for care partner - to improve, our occupation therapists will perform initial evaluation of pt's status upon admission and devise an individualized program for Caregiver Training Weakness - to improve, our occupation therapists will perform initial evaluation of pt's status upon admission and devise an individualized program for Aquatic Therapy, Balance, Endurance, UE ROM, and UE strengthening FUNCTIONAL STATUS: UPDATED AT WEEKLY TEAM CONFERENCE - Bladder Same accident frequency: 7-Ind - No accidents in the past 7 days - Bowel Same accident frequency: 7-Ind - No accidents in the past 7 days - Walking Same score based on distance walked: 3(>=150ft) - Wheelchair Same score based on distance traveled: 0(N/A) FUNCTIONAL STATUS: - Self-Care A. Eating sup B. Grooming sup C. Bathing sup D. Dressing - Upper sup E. Dressing - Lower sup F. Toileting Na - Sphincter Control G: Bladder control Ind H: Bowel control Ind - Transfers Control I. Bed/Chair/Wheelchair Na J. Toilet Na K. Tub/Shower ADNO - Locomotion L. Walk/Wheelchair (B) Na M. Stairs ADNO - Communication N. Comprehension (B) Nate O. Expression (B) Nate - Social Cognition P. Social Interaction Nate Q. Problem Solving Nate R. Memory Nate - Endurance Fair - Balance Poor - Safety Awareness Fair CURRENT [facility]. DEFICITS: Transfers Control, Balance, Self-Care, Locomotion, Endurance, and Safety Awareness SIGNATURE PANEL: (CDT)
[2018-03-02] MEDS: ATORVASTATIN 80 MG TAB PO SCH (20:20)
[2018-03-02] MEDS: DOCUSATE NA/SENNA CONC 1 TAB PO SCH (20:20)
--- NOTE | 2018-03-03 03:05 | FAST ---
SHIFT START DATE/TIME: 03/02/2018 19:00 (CDT) SHIFT END DATE/TIME: 03/03/2018 07:00 (CDT) NAME JAIRO GERMAIN DATE OF : 1955 DATE OF ADMISSION: 02/24/2018 23:45 (CDT) PHONE: AGE: 62 [facility]# [id number] GENDER: Male ENCOUNTER PHYSICIAN: Dr. Edilson Fritz M.D. ADMISSION DIAGNOSIS: - Stroke 01 - Left Body (Right Brain) (01.1) Sub acute basal ganglia infarct. EATING: Activity did not occur on this shift EATING - SCORE: 0-UNK GROOMING: Activity did not occur on this shift GROOMING - SCORE: 0-UNK BATHING: Activity did not occur on this shift BATHING - SCORE: 0-UNK DRESSING - UPPER BODY: Patient is not dressing in public clothing ARTICLES SCORE Total number of steps: 0 DRESSING - UPPER BODY - SCORE: 0-UNK DRESSING - LOWER BODY: Patient is not dressing in public clothing ARTICLES SCORE Total number of steps: 0 DRESSING - LOWER BODY - SCORE: 0-UNK TOILETING: TOILETING - STEP 1: Does the patient require assistance with toileting? Yes. TOILETING - STEP 2: Does the patient require the assistance of a helper? Yes. TOILETING - STEP 3: How much assistance does the patient require from the helper? Hands-on assistance from the helper TOILETING - STEP 4: Of the 3 tasks: 1) Adjusting clothing prior to use, 2) Cleansing of perineal area, 3) Adjusting clot bernard after use; How many tasks does the patient perform WITHOUT assistance of the helper? Three tasks with steadying assistance from the helper TOILETING - SCORE: 4-MIN BLADDER MANAGEMENT: BLADDER MANAGEMENT - STEP 1: Does the patient control the bladder completely and intentionally without equipment or devices or med ications, and is always continent? No. BLADDER MANAGEMENT - STEP 2: Does the patient require the assistance of a helper? Yes. BLADDER MANAGEMENT - STEP 3: How much assistance does the patient require from the helper? Only set-up of equipment - such as plac ing it within reach of the patient or emptying a device - to maintain either satisfactory voiding pat tern or managing an external device, such as an absorbent pad, ileal device, or catheter BLADDER MANAGEMENT - SCORE: 5-SUP BOWEL MANAGEMENT: Activity did not occur on this shift BOWEL MANAGEMENT - SCORE: 7-IND TRANSFERS: BED, CHAIR, WHEELCHAIR: Activity did not occur on this shift TRANSFERS: BED, CHAIR, WHEELCHAIR - SCORE: 0-UNK TRANSFERS: TOILET: Activity did not occur on this shift TRANSFERS: TOILET - SCORE: 0-UNK TRANSFERS: SHOWER: Activity did not occur on this shift TRANSFERS: SHOWER - SCORE: 0-UNK TRANSFERS: TUB: Activity did not occur on this shift TRANSFERS: TUB - SCORE: 0-UNK LOCOMOTION: WALK: Activity did not occur on this shift LOCOMOTION: WALK - SCORE: 0-UNK LOCOMOTION: WHEELCHAIR: Activity did not occur on this shift LOCOMOTION: WHEELCHAIR - SCORE: 0-UNK COMPREHENSION: COMPREHENSION - STEP 1: Does the patient require help to understand complex and abstract ideas (such as current events, finan gino, discharge planning, medical issues, relationships, etc)? No. COMPREHENSION - STEP 2: Does the patient need extra time, require an assistive device (such as glasses, hearing aids, or an a ugmentative communication system), OR does s/he have mild difficulty expressing complex and abstract ideas (including mild dysarthria or mild word-finding problems)? Yes. COMPREHENSION - SCORE: 6-CLAUDIO EXPRESSION EXPRESSION - STEP 1: Does the patient require help expressing complex and abstract ideas (such as current events, finances , discharge planning, medical issues, relationships, etc)? No. EXPRESSION - STEP 2: Does the patient need extra time, require an assistive device (such as augmentive communication syste m or a communication board), OR does s/he have mild difficulty expressing complex and abstract ideas (including mild dysarthria or mild word-find problems)? No. EXPRESSION - SCORE: 7-IND SOCIAL INTERACTION: SOCIAL INTERACTION - STEP 1: Does the patient require a helper to interact with others in social and therapeutic situations? No. SOCIAL INTERACTION - STEP 2: Does the patient need extra time in social situations, OR does s/he interact with staff, other patien ts, and family members ONLY in structured environments, OR does s/he require medication for social in teraction? No. SOCIAL INTERACTION - SCORE: 7-IND PROBLEM SOLVING: PROBLEM SOLVING - STEP 1: Does the patient need help to solve complex problems such as managing a checking account or confronti ng interpersonal problems? No. PROBLEM SOLVING - STEP 2: Does the patient require extra time to make decisions or solve problems, OR does s/he have slight dif ficulty reading, initiating, or self-correcting in unfamiliar situations? Yes, patient needs extra ti me. PROBLEM SOLVING - SCORE: 6-CLAUDIO MEMORY: MEMORY - STEP 1: Does the patient need help to remember frequently encountered people, daily routines, and executing r equests? No. MEMORY - STEP 2: Does the patient have slight difficulty recognizing frequently encountered people, daily routines, or executing requests without the need for repetition or using self-initiated or environmental cues to remember? Yes. MEMORY - SCORE: 6-CLAUDIO SIGNATURE PANEL: The following modified sections: Eating - Score, Grooming - Score, Dressing - Upper Body - Score, Chun ssing - Lower Body - Score, Toileting - Score, Bladder Management - Score, Bowel Management - Score, Transfers: Bed, Chair, Wheelchair - Score, Transfers: Toilet - Score, Transfers: Shower - Score, Mcclellan sfers: Tub - Score, Locomotion: Walk - Score, Locomotion: Wheelchair - Score, Comprehension - Score, Expression - Score, Social Interaction - Score, Problem Solving - Score, Memory - Score were [electro nically] signed by Dominga Perez CNA on ThuMar 03 2018 02:08:08 T-0500 (Central Daylight Time)
[2018-03-03] MEDS: LIDOCAINE 5% PATCH TOP SCH (07:10)
[2018-03-03] MEDS: TRAMADOL HCL 50 MG TAB PO PRN ×4 (07:10→20:58)
[2018-03-03] MEDS: VALSARTAN 160 MG TAB PO SCH ×2 (08:03→20:04)
[2018-03-03] MEDS: ASPIRIN EC 81 MG TAB PO SCH (08:03)
[2018-03-03] MEDS: CLOPIDOGREL 75 MG TABLET PO SCH (08:03)
--- NOTE | 2018-03-03 14:56 | FAST ---
SHIFT START DATE/TIME: 03/03/2018 07:00 (CDT) SHIFT END DATE/TIME: 03/03/2018 19:00 (CDT) NAME JAIRO GERMAIN DATE OF : 1955 DATE OF ADMISSION: 02/24/2018 23:45 (CDT) PHONE: AGE: 62 [facility]# [id number] GENDER: Male ENCOUNTER PHYSICIAN: Dr. Edilson Fritz M.D. ADMISSION DIAGNOSIS: - Stroke 01 - Left Body (Right Brain) (01.1) Sub acute basal ganglia infarct. EATING: EATING - STEP 1: Does the patient require assistance when eating? Yes. EATING - STEP 2: Does the patient require the assistance of a helper? No, patient only requires an assistive device, O R s/he takes more than reasonable time to eat, OR there is a safety concern, OR s/he requires modifie d food consistency EATING - SCORE: 6-CLAUDIO GROOMING: Comb/brush hair Wash, rinse, and dry face Wash, rinse, and dry hands GROOMING - STEP 1: Does the patient require assistance when grooming? Yes. GROOMING - STEP 2: Does the patient require the assistance of a helper? No. The patient only requires an assistive devic e, OR takes more than reasonable time to groom, OR there is a concern for safety as the patient groom s GROOMING - SCORE: 6-CLAUDIO BATHING: Activity did not occur on this shift BATHING - SCORE: 0-UNK DRESSING - UPPER BODY: T-shirt/pullover shirt (four steps) ARTICLES SCORE Total number of steps: 4 DRESSING - UPPER BODY - STEP 1: Does the patient require help when dressing above the waist? Yes. DRESSING - UPPER BODY - STEP 2: Does the patient require the assistance of a helper? No. Patient only requires an assistive device, s uch as a button hook, velcro, or butane compressor operator. OR s/he takes more than reasonable time as s/he dresses the upper body. OR there is a concern for safety when s/he dresses the upper body DRESSING - UPPER BODY - SCORE: 6-CLAUDIO DRESSING - LOWER BODY: Elastic waist pants (three steps) Slip-on shoe - Left foot (one step) Slip-on shoe - Right foot (one step) ARTICLES SCORE Total number of steps: 5 DRESSING - LOWER BODY - STEP 1: Does the patient require help when dressing below the waist? Yes. DRESSING - LOWER BODY - STEP 2: Does the patient require the assistance of a helper? No. Patient requires an assistive device such as a butane compressor operator. OR s/he takes more than reasonable time as s/he dresses the lower body, OR there is a con cern for safety when s/he dresses the lower body DRESSING - LOWER BODY - SCORE: 6-CLAUDIO TOILETING: TOILETING - STEP 1: Does the patient require assistance with toileting? Yes. TOILETING - STEP 2: Does the patient require the assistance of a helper? Yes. TOILETING - STEP 3: How much assistance does the patient require from the helper? Hands-on assistance from the helper TOILETING - STEP 4: Of the 3 tasks: 1) Adjusting clothing prior to use, 2) Cleansing of perineal area, 3) Adjusting clot bernard after use; How many tasks does the patient perform WITHOUT assistance of the helper? Three tasks with steadying assistance from the helper TOILETING - SCORE: 4-MIN BLADDER MANAGEMENT: BLADDER MANAGEMENT - STEP 1: Does the patient control the bladder completely and intentionally without equipment or devices or med ications, and is always continent? No. BLADDER MANAGEMENT - STEP 2: Does the patient require the assistance of a helper? Yes. BLADDER MANAGEMENT - STEP 3: How much assistance does the patient require from the helper? Only set-up of equipment - such as plac ing it within reach of the patient or emptying a device - to maintain either satisfactory voiding pat tern or managing an external device, such as an absorbent pad, ileal device, or catheter BLADDER MANAGEMENT - SCORE: 5-SUP BLADDER MANAGEMENT - FREQUENCY OF ACCIDENTS: BLADDER MANAGEMENT(FA) - STEP 1: How many accidents has the patient had during the current shift? 0 BOWEL MANAGEMENT: BOWEL MANAGEMENT - STEP 1: Does the patient control bowels completely and intentionally without equipment devices or medications AND is always continent? No. BOWEL MANAGEMENT - STEP 2: Does the patient require the assistance of a helper? No, patient requires medication for control such as stool softeners, suppositories, laxatives, enemas, or OTC medications BOWEL MANAGEMENT - SCORE: 6-CLAUDIO BOWEL MANAGEMENT - FREQUENCY OF ACCIDENTS: BOWEL MANAGEMENT(FA) - STEP 1: How many accidents has the patient had during the current shift? 0 TRANSFERS: BED, CHAIR, WHEELCHAIR: TRANSFERS: BED, CHAIR, WHEELCHAIR - STEP 1: Does the patient require assistance with bed, chair, or wheelchair transfers? Yes. TRANSFERS: BED, CHAIR, WHEELCHAIR - STEP 2: Does the patient require the assistance of a helper? Yes. TRANSFERS: BED, CHAIR, WHEELCHAIR - STEP 3: How much assistance does the patient require from the helper? Lifting of the patient TRANSFERS: BED, CHAIR, WHEELCHAIR - STEP 4: Does the helper lift the patient ONLY up? ONLY down? Up AND Down? ONLY up. TRANSFERS: BED, CHAIR, WHEELCHAIR - SCORE: 3-MOD TRANSFERS: TOILET: TRANSFERS: TOILET - STEP 1: Does the patient require assistance with toilet transfers? Yes. TRANSFERS: TOILET - STEP 2: Does the patient require the assistance of a helper? Yes. TRANSFERS: TOILET - STEP 3: How much assistance does the patient require from the helper? Only supervision, cuing, coaxing, OR he lp to set out transfer equipment or to lock brakes and/or lift foot rests TRANSFERS: TOILET - SCORE: 5-SUP TRANSFERS: SHOWER: Activity did not occur on this shift TRANSFERS: SHOWER - SCORE: 0-UNK TRANSFERS: TUB: Activity did not occur on this shift TRANSFERS: TUB - SCORE: 0-UNK LOCOMOTION: WALK: Activity did not occur on this shift LOCOMOTION: WALK - SCORE: 0-UNK LOCOMOTION: WHEELCHAIR: LOCOMOTION: WHEELCHAIR - STEP 1: Does the patient need help to go 150 feet in a wheelchair? Yes. LOCOMOTION: WHEELCHAIR - STEP 2: How much assistance does the patient need from the helper? Only supervision, cuing, or coaxing LOCOMOTION: WHEELCHAIR - SCORE: 5-SUP COMPREHENSION: COMPREHENSION: TYPE: Both COMPREHENSION - STEP 1: Does the patient require help to understand complex and abstract ideas (such as current events, finan gino, discharge planning, medical issues, relationships, etc)? No. COMPREHENSION - STEP 2: Does the patient need extra time, require an assistive device (such as glasses, hearing aids, or an a ugmentative communication system), OR does s/he have mild difficulty expressing complex and abstract ideas (including mild dysarthria or mild word-finding problems)? Yes. COMPREHENSION - SCORE: 6-CLAUDIO EXPRESSION EXPRESSION: TYPE: Both EXPRESSION - STEP 1: Does the patient require help expressing complex and abstract ideas (such as current events, finances , discharge planning, medical issues, relationships, etc)? No. EXPRESSION - STEP 2: Does the patient need extra time, require an assistive device (such as augmentive communication syste m or a communication board), OR does s/he have mild difficulty expressing complex and abstract ideas (including mild dysarthria or mild word-find problems)? Yes. EXPRESSION - SCORE: 6-CLAUDIO SOCIAL INTERACTION: SOCIAL INTERACTION - STEP 1: Does the patient require a helper to interact with others in social and therapeutic situations? No. SOCIAL INTERACTION - STEP 2: Does the patient need extra time in social situations, OR does s/he interact with staff, other patien ts, and family members ONLY in structured environments, OR does s/he require medication for social in teraction? No. SOCIAL INTERACTION - SCORE: 7-IND PROBLEM SOLVING: PROBLEM SOLVING - STEP 1: Does the patient need help to solve complex problems such as managing a checking account or confronti ng interpersonal problems? No. PROBLEM SOLVING - STEP 2: Does the patient require extra time to make decisions or solve problems, OR does s/he have slight dif ficulty reading, initiating, or self-correcting in unfamiliar situations? Yes, patient needs extra ti me. PROBLEM SOLVING - SCORE: 6-CLAUDIO MEMORY: MEMORY - STEP 1: Does the patient need help to remember frequently encountered people, daily routines, and executing r equests? No. MEMORY - STEP 2: Does the patient have slight difficulty recognizing frequently encountered people, daily routines, or executing requests without the need for repetition or using self-initiated or environmental cues to remember? Yes. MEMORY - SCORE: 6-CLAUDIO SIGNATURE PANEL: The following modified sections: Eating - Score, Grooming - Score, Bathing - Score, Dressing - Upper Body - Score, Dressing - Lower Body - Score, Toileting - Score, Bladder Management - Score, Bowel Man agement - Score, Transfers: Bed, Chair, Wheelchair - Score, Transfers: Toilet - Score, Transfers: Luz Maria wer - Score, Transfers: Tub - Score, Locomotion: Walk - Score, Locomotion: Wheelchair - Score, Compre hension - Score, Expression - Score, Social Interaction - Score, Problem Solving - Score, Memory - Sc ore were [electronically] signed by Alesia Mujica C.N.A. on ThuMar 03 2018 13:58:43 [facility]-0500 ([facility] Day[facility])
--- NOTE | 2018-03-03 16:08 | FAST ---
ENCOUNTER DATE AND TIME: 03/03/2018 08:00 (CDT) NAME JAIRO GERMAIN DATE OF : 1955 DATE OF ADMISSION: 02/24/2018 23:45 (CDT) PHONE: AGE: 62 [facility]# [id number] GENDER: Male ENCOUNTER PHYSICIAN: Dr. Edilson Fritz M.D. ADMISSION DIAGNOSIS: - Stroke 01 - Left Body (Right Brain) (01.1) Sub acute basal ganglia infarct. EATING: Activity did not occur on this shift EATING - SCORE: 0-UNK GROOMING: Comb/brush hair Wash, rinse, and dry face Wash, rinse, and dry hands GROOMING - STEP 1: Does the patient require assistance when grooming? No. GROOMING - SCORE: 7-IND BATHING: Abdomen Buttocks Chest Left arm Left lower leg and foot Left upper leg Perineal area Right arm Right lower leg and foot Right upper leg BATHING - STEP 1: Does the patient require assistance when bathing? Yes. BATHING - STEP 2: Does the patient require the assistance of a helper? Yes. BATHING - STEP 3: How much assistance does the patient require from the helper? Only supervision, cuing, coaxing, instr uctions, encouragement BATHING - SCORE: 5-SUP DRESSING - UPPER BODY: T-shirt/pullover shirt (four steps) ARTICLES SCORE Total number of steps: 4 DRESSING - UPPER BODY - STEP 1: Does the patient require help when dressing above the waist? Yes. DRESSING - UPPER BODY - STEP 2: Does the patient require the assistance of a helper? Yes. DRESSING - UPPER BODY - STEP 3: Does the helper touch the patient while dressing? No. DRESSING - UPPER BODY - SCORE: 5-SUP DRESSING - LOWER BODY: Sock - Left foot (one step) Sock - Right foot (one step) Underwear (three steps) Zippered pants (four steps) ARTICLES SCORE Total number of steps: 9 DRESSING - LOWER BODY - STEP 1: Does the patient require help when dressing below the waist? Yes. DRESSING - LOWER BODY - STEP 2: Does the patient require the assistance of a helper? Yes. DRESSING - LOWER BODY - STEP 3: Does the helper touch the patient while dressing? Yes. DRESSING - LOWER BODY - STEP 4: How many of the total steps does the patient complete on his/her own? 5 DRESSING - LOWER BODY - SCORE: 3-MOD TOILETING: Activity did not occur on this shift TOILETING - SCORE: 0-UNK BLADDER MANAGEMENT: Activity did not occur on this shift BLADDER MANAGEMENT - SCORE: 7-IND BOWEL MANAGEMENT: Activity did not occur on this shift BOWEL MANAGEMENT - SCORE: 7-IND TRANSFERS: BED, CHAIR, WHEELCHAIR: Activity did not occur on this shift TRANSFERS: BED, CHAIR, WHEELCHAIR - SCORE: 0-UNK TRANSFERS: TOILET: Activity did not occur on this shift TRANSFERS: TOILET - SCORE: 0-UNK TRANSFERS: SHOWER: TRANSFERS: SHOWER - STEP 1: Does the patient require assistance with shower transfers? Yes. TRANSFERS: SHOWER - STEP 2: Does the patient require the assistance of a helper? Yes. TRANSFERS: SHOWER - STEP 3: How much assistance does the patient require from the helper? Only supervision, cuing, coaxing, or he lp to set out transfer equipment or to lock brakes and/or lift foot rests TRANSFERS: SHOWER - SCORE: 5-SUP TRANSFERS: TUB: Activity did not occur on this shift TRANSFERS: TUB - SCORE: 0-UNK LOCOMOTION: WALK: Activity did not occur on this shift LOCOMOTION: WALK - SCORE: 0-UNK LOCOMOTION: WHEELCHAIR: Activity did not occur on this shift LOCOMOTION: WHEELCHAIR - SCORE: 0-UNK LOCOMOTION: STAIRS: Activity did not occur on this shift LOCOMOTION: STAIRS - SCORE: 0-UNK COMPREHENSION: COMPREHENSION: TYPE: Both COMPREHENSION - STEP 1: Does the patient require help to understand complex and abstract ideas (such as current events, finan gino, discharge planning, medical issues, relationships, etc)? No. COMPREHENSION - STEP 2: Does the patient need extra time, require an assistive device (such as glasses, hearing aids, or an a ugmentative communication system), OR does s/he have mild difficulty expressing complex and abstract ideas (including mild dysarthria or mild word-finding problems)? No. COMPREHENSION - SCORE: 7-IND EXPRESSION EXPRESSION: TYPE: Both EXPRESSION - STEP 1: Does the patient require help expressing complex and abstract ideas (such as current events, finances , discharge planning, medical issues, relationships, etc)? No. EXPRESSION - STEP 2: Does the patient need extra time, require an assistive device (such as augmentive communication syste m or a communication board), OR does s/he have mild difficulty expressing complex and abstract ideas (including mild dysarthria or mild word-find problems)? No. EXPRESSION - SCORE: 7-IND SOCIAL INTERACTION: SOCIAL INTERACTION - STEP 1: Does the patient require a helper to interact with others in social and therapeutic situations? No. SOCIAL INTERACTION - STEP 2: Does the patient need extra time in social situations, OR does s/he interact with staff, other patien ts, and family members ONLY in structured environments, OR does s/he require medication for social in teraction? No. SOCIAL INTERACTION - SCORE: 7-IND PROBLEM SOLVING: PROBLEM SOLVING - STEP 1: Does the patient need help to solve complex problems such as managing a checking account or confronti ng interpersonal problems? No. PROBLEM SOLVING - STEP 2: Does the patient require extra time to make decisions or solve problems, OR does s/he have slight dif ficulty reading, initiating, or self-correcting in unfamiliar situations? Yes, patient needs extra ti me. PROBLEM SOLVING - SCORE: 6-CLAUDIO MEMORY: MEMORY - STEP 1: Does the patient need help to remember frequently encountered people, daily routines, and executing r equests? No. MEMORY - STEP 2: Does the patient have slight difficulty recognizing frequently encountered people, daily routines, or executing requests without the need for repetition or using self-initiated or environmental cues to remember? No. MEMORY - SCORE: 7-IND SIGNATURE PANEL: The following modified sections: Eating - Score, Grooming - Score, Bathing - Score, Dressing - Upper Body - Score, Dressing - Lower Body - Score, Toileting - Score, Transfers: Bed, Chair, Wheelchair - S core, Transfers: Toilet - Score, Transfers: Tub - Score, Transfers: Shower - Score, Comprehension - S core, Expression - Score, Social Interaction - Score, Problem Solving - Score, Memory - Score were [e lectronically] signed by Melissa Nichols OT on ThuMar 03 2018 15:10:49 T-0500 (Central Daylight T bren)
--- NOTE | 2018-03-03 16:44 | FAST ---
ENCOUNTER DATE AND TIME: 03/03/2018 08:00 (CDT) NAME JAIRO GERMAIN DATE OF : 1955 DATE OF ADMISSION: 02/24/2018 23:45 (CDT) PHONE: AGE: 62 [facility]# [id number] GENDER: Male ENCOUNTER PHYSICIAN: Dr. Edilson Fritz M.D. ADMISSION DIAGNOSIS: - Stroke 01 - Left Body (Right Brain) (01.1) Sub acute basal ganglia infarct. EATING: Activity did not occur on this shift EATING - SCORE: 0-UNK GROOMING: Activity did not occur on this shift GROOMING - SCORE: 0-UNK BATHING: Activity did not occur on this shift BATHING - SCORE: 0-UNK DRESSING - UPPER BODY: Activity did not occur on this shift Patient is not dressing in public clothing ARTICLES SCORE Total number of steps: 0 DRESSING - UPPER BODY - SCORE: 0-UNK DRESSING - LOWER BODY: Activity did not occur on this shift Patient is not dressing in public clothing ARTICLES SCORE Total number of steps: 0 DRESSING - LOWER BODY - SCORE: 0-UNK TOILETING: Activity did not occur on this shift TOILETING - SCORE: 0-UNK BLADDER MANAGEMENT: Activity did not occur on this shift BLADDER MANAGEMENT - SCORE: 7-IND BOWEL MANAGEMENT: Activity did not occur on this shift BOWEL MANAGEMENT - SCORE: 7-IND TRANSFERS: BED, CHAIR, WHEELCHAIR: TRANSFERS: BED, CHAIR, WHEELCHAIR - STEP 1: Does the patient require assistance with bed, chair, or wheelchair transfers? Yes. TRANSFERS: BED, CHAIR, WHEELCHAIR - STEP 2: Does the patient require the assistance of a helper? Yes. TRANSFERS: BED, CHAIR, WHEELCHAIR - STEP 3: How much assistance does the patient require from the helper? Only supervision TRANSFERS: BED, CHAIR, WHEELCHAIR - SCORE: 5-SUP TRANSFERS: TOILET: Activity did not occur on this shift TRANSFERS: TOILET - SCORE: 0-UNK TRANSFERS: SHOWER: Activity did not occur on this shift TRANSFERS: SHOWER - SCORE: 0-UNK TRANSFERS: TUB: Activity did not occur on this shift TRANSFERS: TUB - SCORE: 0-UNK LOCOMOTION: WALK: LOCOMOTION: WALK - STEP 1: Does the patient need help to walk 150 feet? Yes. LOCOMOTION: WALK - STEP 2: How much assistance does the patient require to walk a minimum of 150 feet? Only incidental help such as contact guarding or steadying LOCOMOTION: WALK - SCORE: 4-MIN LOCOMOTION: WHEELCHAIR: LOCOMOTION: WHEELCHAIR - STEP 1: Does the patient need help to go 150 feet in a wheelchair? Yes. LOCOMOTION: WHEELCHAIR - STEP 2: How much assistance does the patient need from the helper? Only supervision, cuing, or coaxing LOCOMOTION: WHEELCHAIR - SCORE: 5-SUP LOCOMOTION: STAIRS: Activity did not occur on this shift LOCOMOTION: STAIRS - SCORE: 0-UNK COMPREHENSION: COMPREHENSION - SCORE: 0-UNK EXPRESSION EXPRESSION - SCORE: 0-UNK SOCIAL INTERACTION: SOCIAL INTERACTION - SCORE: 0-UNK PROBLEM SOLVING: PROBLEM SOLVING - SCORE: 0-UNK MEMORY: MEMORY - SCORE: 0-UNK SIGNATURE PANEL: The following modified sections: Transfers: Bed, Chair, Wheelchair - Score, Transfers: Toilet - Score , Locomotion: Walk - Score, Locomotion: Wheelchair - Score, Locomotion: Stairs - Score were [aziza lozano] signed by Maurisio Estrella PTA on ThuMar 03 2018 15:47:03 T-0500 (Central Daylight Time)
[2018-03-03] MEDS: ENOXAPARIN 40 MG/0.4 ML SQ SCH (16:54)
--- NOTE | 2018-03-03 18:59 | R.PN ---
ENCOUNTER DATE AND TIME: 03/03/2018 18:00 (CDT) NAME JAIRO GERMAIN DATE OF : 1955 DATE OF ADMISSION: 02/24/2018 23:45 (CDT) Sub acute basal ganglia infarctCHIEF COMPLAINT: Basal ganglia stroke SUBJECTIVE: Pt denied any Shortness of Breath. Pt denied any depression. Bed mobility was done with standy assistance. Ambulated 310' with contact guard assistance using a r olling walker. VITAL SIGNS Temperature: 97.4 F SBP/DBP: 128/66 Pulse: 58 Resp: 16 MEDICATION ALLERGIES: No Known Drug Allergies (NKDA) ENVIRONMENTAL ALLERGIES: None Known - Substance Allergies None Known - Other Allergies None Known NURSING: - Shower allowing shower - Bladder care per protocol - Skin care per protocol PRECAUTIONS: - Fall Precaution Bed alarm TABS alarm Wheel chair alarm Critical cord compression c-spine ACTIVITIES OOB only with supervision THERAPIES: - Occupational Therapy Evaluate and Treat. Cognitive Retraining. Visual Perceptual Training. - Speech Therapy Cognitive Training. Memory Strategies. Expressive Language Skills. Receptive Language Skills. Speech Intelligibility Training. - Physical Therapy Evaluate and Treat. PHYSICAL EXAM - Gen Alert and awake Lying in bed No apparent distress Oriented to: person, time, and place - Skin No skin breakdown. Normacephalic - Eyes No abnormalities - ENMT No abnormalities - Neck No abnormalities - CVS RRR - Chest Clear - Abd Soft - GI nondistended Deferred - No abnormalities - Ext No significant edema - MSK 4+/5 weakness in left upper and lower extremity - Neuro 4/5 strength left upper and lower extremities. - Psych No abnormalities ASSESSMENT: Pt. is a 62 yo Right-handed white male.On 02/19/[address] [facility] with sudden onset of left-side weakness.On 02/19/2018 he was admitted to [facility] with diagnosis Sub acute basal ganglia infarct.His impairment category is Stroke 01 - Left Emir dy (Right Brain) (01.1).Pre-morbidly, Pt. was independent/mod-I in Transfers Control, Communication, Social Cognition, Self-Care, Locomotion, and Sphincter Control; and he had good Sphincter Control.Cur rently, he has deficits of Transfers Control, Balance, Self-Care, Locomotion, Endurance, and Safety A wareness.Pt. is now referred to [facility] for acute in-patient rehabilitation in order to maximize patient's functional independence in activities of daily living, strength, ROM, and mobility.- Rehab Goal Patient has realistic goal of being discharged at assistance level 6-Nate to reside at Home with Fam evelyne/Relatives. MDM/PLAN: - Diet Type Continue Heart healthy for Dementia, TBI, Stroke, or others - Physical Therapy Gait dysfunction - to improve, our physical therapists will perform initial evaluation of pt's statu s upon admission and devise an individualized program for Gait Training, and Wheel Chair mobility Inability to transfer - to improve, our physical therapists will perform initial evaluation of pt's status upon admission and devise an individualized program for Bed mobility Need for home safety evaluation - to improve, our physical therapists will perform initial evaluatio n of pt's status upon admission and devise an individualized program for Home Evaluation Need in caregiver upon discharge - to improve, our physical therapists will perform initial evaluati on of pt's status upon admission and devise an individualized program for Caregiver Training New precaution - to improve, our physical therapists will perform initial evaluation of pt's status upon admission and devise an individualized program for Patient precaution education Edema - to improve, our physical therapists will perform initial evaluation of pt's status upon admi ssion and devise an individualized program for Elevation Training, and Lymphedema Therapy Pain - to improve, our physical therapists will perform initial evaluation of pt's status upon admis mason and devise an individualized program for Modalities Poor balance - to improve, our physical therapists will perform initial evaluation of pt's status up on admission and devise an individualized program for Balance Training Poor endurance - to improve, our physical therapists will perform initial evaluation of pt's status upon admission and devise an individualized program for Endurance Training Weakness - to improve, our physical therapists will perform initial evaluation of pt's status upon a dmission and devise an individualized program for Aquatic Therapy, Neuromuscular Reeducation, and Str engthening Achieving independence - to improve, our physical therapists will perform initial evaluation of pt's status upon admission and devise an individualized program for Community Reintegration Activities - Diet - Liquid Texture Continue Regular - Tube Feed Continue N/A - Bladder care per protocol - Weight Bearing Precaution WBAT left LE - Fall Precaution Bed alarm TABS alarm Wheel chair alarm Critical cord compression c-spine - Skin care per protocol - Diet - Solid Texture Continue Regular - Shower allowing shower - Occupational Therapy ADL deficits - to improve, our occupation therapists will perform initial evaluation of pt's status upon admission and devise an individualized program for Bathing, Bed mobility, Community Reintegratio n, Cooking, Dressing, Eating, Fine Motor Skills, Grooming, Homemaking, Kitchen Mobility, Laundry, Pat ient Education, Safety Awareness, Splinting - Positioning, Transfers(Toilet, Tub, Shower), and Wheel Chair Management Need for long term acute care registered nurse - to improve, our occupation therapists will perform initial evaluation of pt's status upon admission and devise an individualized program for Caregiver Training Weakness - to improve, our occupation therapists will perform initial evaluation of pt's status upon admission and devise an individualized program for Aquatic Therapy, Balance, Endurance, UE ROM, and UE strengthening FUNCTIONAL STATUS: UPDATED AT WEEKLY TEAM CONFERENCE - Bladder Same accident frequency: 7-Ind - No accidents in the past 7 days - Bowel Same accident frequency: 7-Ind - No accidents in the past 7 days - Walking Same score based on distance walked: 3(>=150ft) - Wheelchair Same score based on distance traveled: 0(N/A) FUNCTIONAL STATUS: - Self-Care A. Eating sup B. Grooming sup C. Bathing sup D. Dressing - Upper sup E. Dressing - Lower sup F. Toileting Na - Sphincter Control G: Bladder control Ind H: Bowel control Ind - Transfers Control I. Bed/Chair/Wheelchair Na J. Toilet Na K. Tub/Shower ADNO - Locomotion L. Walk/Wheelchair (B) Na M. Stairs ADNO - Communication N. Comprehension (B) Nate O. Expression (B) Nate - Social Cognition P. Social Interaction Nate Q. Problem Solving Nate R. Memory Nate - Endurance Fair - Balance Poor - Safety Awareness Fair [facility] DEFICITS: Transfers Control, Balance, Self-Care, Locomotion, Endurance, and Safety Awareness SIGNATURE PANEL: (CDT)
[2018-03-03] MEDS: ATORVASTATIN 80 MG TAB PO SCH (20:04)
[2018-03-03] MEDS: DOCUSATE NA/SENNA CONC 1 TAB PO SCH (20:05)
--- NOTE | 2018-03-04 05:05 | FAST ---
SHIFT START DATE/TIME: 03/03/2018 19:00 (CDT) SHIFT END DATE/TIME: 03/04/2018 07:00 (CDT) NAME JAIRO GERMAIN DATE OF : 1955 DATE OF ADMISSION: 02/24/2018 23:45 (CDT) PHONE: AGE: 62 [facility]# [id number] GENDER: Male ENCOUNTER PHYSICIAN: Dr. Edilson Fritz M.D. ADMISSION DIAGNOSIS: - Stroke 01 - Left Body (Right Brain) (01.1) Sub acute basal ganglia infarct. EATING: EATING - STEP 1: Does the patient require assistance when eating? Yes. EATING - STEP 2: Does the patient require the assistance of a helper? No, patient only requires an assistive device, O R s/he takes more than reasonable time to eat, OR there is a safety concern, OR s/he requires modifie d food consistency EATING - SCORE: 6-CLAUDIO GROOMING: Wash, rinse, and dry face Wash, rinse, and dry hands GROOMING - STEP 1: Does the patient require assistance when grooming? Yes. GROOMING - STEP 2: Does the patient require the assistance of a helper? Yes. GROOMING - STEP 3: How much assistance does the patient require from the helper? Only prior equipment preparation/set up from the helper GROOMING - SCORE: 5-SUP BATHING: Activity did not occur on this shift BATHING - SCORE: 0-UNK DRESSING - UPPER BODY: Patient is not dressing in public clothing ARTICLES SCORE Total number of steps: 0 DRESSING - UPPER BODY - SCORE: 0-UNK DRESSING - LOWER BODY: Patient is not dressing in public clothing ARTICLES SCORE Total number of steps: 0 DRESSING - LOWER BODY - SCORE: 0-UNK TOILETING: TOILETING - STEP 1: Does the patient require assistance with toileting? Yes. TOILETING - STEP 2: Does the patient require the assistance of a helper? Yes. TOILETING - STEP 3: How much assistance does the patient require from the helper? Only supervision TOILETING - SCORE: 5-SUP BLADDER MANAGEMENT: BLADDER MANAGEMENT - STEP 1: Does the patient control the bladder completely and intentionally without equipment or devices or med ications, and is always continent? No. BLADDER MANAGEMENT - STEP 2: Does the patient require the assistance of a helper? Yes. BLADDER MANAGEMENT - STEP 3: How much assistance does the patient require from the helper? Only set-up of equipment - such as plac ing it within reach of the patient or emptying a device - to maintain either satisfactory voiding pat tern or managing an external device, such as an absorbent pad, ileal device, or catheter BLADDER MANAGEMENT - SCORE: 5-SUP BLADDER MANAGEMENT - FREQUENCY OF ACCIDENTS: BLADDER MANAGEMENT(FA) - STEP 1: How many accidents has the patient had during the current shift? 0 BOWEL MANAGEMENT: Activity did not occur on this shift BOWEL MANAGEMENT - SCORE: 7-IND TRANSFERS: BED, CHAIR, WHEELCHAIR: TRANSFERS: BED, CHAIR, WHEELCHAIR - STEP 1: Does the patient require assistance with bed, chair, or wheelchair transfers? Yes. TRANSFERS: BED, CHAIR, WHEELCHAIR - STEP 2: Does the patient require the assistance of a helper? Yes. TRANSFERS: BED, CHAIR, WHEELCHAIR - STEP 3: How much assistance does the patient require from the helper? Only supervision TRANSFERS: BED, CHAIR, WHEELCHAIR - SCORE: 5-SUP TRANSFERS: TOILET: Activity did not occur on this shift TRANSFERS: TOILET - SCORE: 0-UNK TRANSFERS: SHOWER: Activity did not occur on this shift TRANSFERS: SHOWER - SCORE: 0-UNK TRANSFERS: TUB: Activity did not occur on this shift TRANSFERS: TUB - SCORE: 0-UNK LOCOMOTION: WALK: Activity did not occur on this shift LOCOMOTION: WALK - SCORE: 0-UNK LOCOMOTION: WHEELCHAIR: Activity did not occur on this shift LOCOMOTION: WHEELCHAIR - SCORE: 0-UNK COMPREHENSION: COMPREHENSION: TYPE: Both COMPREHENSION - STEP 1: Does the patient require help to understand complex and abstract ideas (such as current events, finan gino, discharge planning, medical issues, relationships, etc)? No. COMPREHENSION - STEP 2: Does the patient need extra time, require an assistive device (such as glasses, hearing aids, or an a ugmentative communication system), OR does s/he have mild difficulty expressing complex and abstract ideas (including mild dysarthria or mild word-finding problems)? Yes. COMPREHENSION - SCORE: 6-CLAUDIO EXPRESSION EXPRESSION: TYPE: Both EXPRESSION - STEP 1: Does the patient require help expressing complex and abstract ideas (such as current events, finances , discharge planning, medical issues, relationships, etc)? No. EXPRESSION - STEP 2: Does the patient need extra time, require an assistive device (such as augmentive communication syste m or a communication board), OR does s/he have mild difficulty expressing complex and abstract ideas (including mild dysarthria or mild word-find problems)? No. EXPRESSION - SCORE: 7-IND SOCIAL INTERACTION: SOCIAL INTERACTION - STEP 1: Does the patient require a helper to interact with others in social and therapeutic situations? No. SOCIAL INTERACTION - STEP 2: Does the patient need extra time in social situations, OR does s/he interact with staff, other patien ts, and family members ONLY in structured environments, OR does s/he require medication for social in teraction? No. SOCIAL INTERACTION - SCORE: 7-IND PROBLEM SOLVING: PROBLEM SOLVING - STEP 1: Does the patient need help to solve complex problems such as managing a checking account or confronti ng interpersonal problems? No. PROBLEM SOLVING - STEP 2: Does the patient require extra time to make decisions or solve problems, OR does s/he have slight dif ficulty reading, initiating, or self-correcting in unfamiliar situations? No. PROBLEM SOLVING - SCORE: 7-IND MEMORY: MEMORY - STEP 1: Does the patient need help to remember frequently encountered people, daily routines, and executing r equests? No. MEMORY - STEP 2: Does the patient have slight difficulty recognizing frequently encountered people, daily routines, or executing requests without the need for repetition or using self-initiated or environmental cues to remember? No. MEMORY - SCORE: 7-IND SIGNATURE PANEL: The following modified sections: Eating - Score, Grooming - Score, Bathing - Score, Dressing - Upper Body - Score, Dressing - Lower Body - Score, Toileting - Score, Bladder Management - Score, Bowel Man agement - Score, Transfers: Bed, Chair, Wheelchair - Score, Transfers: Toilet - Score, Transfers: Luz Maria wer - Score, Transfers: Tub - Score, Locomotion: Walk - Score, Locomotion: Wheelchair - Score, Compre hension - Score, Expression - Score, Social Interaction - Score, Problem Solving - Score, Memory - Sc ore were [electronically] signed by Briseyda [email or web address] on ThuMar 04 2018 04:07:43 GMT-0500 ( Central Daylight Time)
[2018-03-04 06:21] LABS: Absolute Lymphocytes (CBC) 1.8 K/uL (0.7-4.9); Absolute Monocytes 0.9 K/uL (0.1-1.3); Absolute Neutrophil 3.7 K/uL (1.8-8.0); Basophils % 0.3 % (0-1.3); Eosinophils % 3.6 % (0-4.4); Hematocrit 32.3 % (39.6-49.0); Lymphocytes % 26.9 % (15.3-44.8); MCH 29.9 pg (27.0-35.0); MCV 86.4 fL (80-100); MPV 8.5 fL (7.6-11.3); Monocytes % 13.3 % (3.3-12.3); RBC Red Blood Cell Count 3.74 M/uL (4.33-5.43)
[2018-03-04 06:56] LABS: Albumin 3.7 g/dL (3.2-5.5); Potassium 4.1 mEq/L (3.6-5.0); Prealbumin 21.4 mg/dl (18-38)
[2018-03-04] MEDS: TRAMADOL HCL 50 MG TAB PO PRN ×3 (07:28→21:19)
[2018-03-04] MEDS: LIDOCAINE 5% PATCH TOP SCH (07:28)
[2018-03-04] MEDS: CLOPIDOGREL 75 MG TABLET PO SCH (08:08)
[2018-03-04] MEDS: ASPIRIN EC 81 MG TAB PO SCH (08:08)
[2018-03-04] MEDS: VALSARTAN 160 MG TAB PO SCH ×2 (08:08→20:10)
--- NOTE | 2018-03-04 14:20 | FAST ---
SHIFT START DATE/TIME: 03/04/2018 07:00 (CDT) SHIFT END DATE/TIME: 03/04/2018 19:00 (CDT) NAME JAIRO GERMAIN DATE OF : 1955 DATE OF ADMISSION: 02/24/2018 23:45 (CDT) PHONE: AGE: 62 [facility]# [phone] GENDER: Male ENCOUNTER PHYSICIAN: Dr. Edilson Fritz M.D. ADMISSION DIAGNOSIS: - Stroke 01 - Left Body (Right Brain) (01.1) Sub acute basal ganglia infarct. EATING: EATING - STEP 1: Does the patient require assistance when eating? Yes. EATING - STEP 2: Does the patient require the assistance of a helper? No, patient only requires an assistive device, O R s/he takes more than reasonable time to eat, OR there is a safety concern, OR s/he requires modifie d food consistency EATING - SCORE: 6-CLAUDIO GROOMING: GROOMING - STEP 1: Does the patient require assistance when grooming? Yes. GROOMING - STEP 2: Does the patient require the assistance of a helper? Yes. GROOMING - STEP 3: How much assistance does the patient require from the helper? Only prior equipment preparation/set up from the helper GROOMING - SCORE: 5-SUP BATHING: Activity did not occur on this shift BATHING - SCORE: 0-UNK DRESSING - UPPER BODY: Activity did not occur on this shift ARTICLES SCORE Total number of steps: 0 DRESSING - UPPER BODY - SCORE: 0-UNK DRESSING - LOWER BODY: Activity did not occur on this shift ARTICLES SCORE Total number of steps: 0 DRESSING - LOWER BODY - SCORE: 0-UNK TOILETING: TOILETING - STEP 1: Does the patient require assistance with toileting? Yes. TOILETING - STEP 2: Does the patient require the assistance of a helper? Yes. TOILETING - STEP 3: How much assistance does the patient require from the helper? Hands-on assistance from the helper TOILETING - STEP 4: Of the 3 tasks: 1) Adjusting clothing prior to use, 2) Cleansing of perineal area, 3) Adjusting clot bernard after use; How many tasks does the patient perform WITHOUT assistance of the helper? Two tasks TOILETING - SCORE: 3-MOD BLADDER MANAGEMENT: BLADDER MANAGEMENT - STEP 1: Does the patient control the bladder completely and intentionally without equipment or devices or med ications, and is always continent? Yes. BLADDER MANAGEMENT - SCORE: 7-IND BOWEL MANAGEMENT: BOWEL MANAGEMENT - STEP 1: Does the patient control bowels completely and intentionally without equipment devices or medications AND is always continent? No. BOWEL MANAGEMENT - STEP 2: Does the patient require the assistance of a helper? No, patient requires and manages independently a n assistive device such as a bedpan, bedside commode, absorbent pad, incontinent device, or collectin g device BOWEL MANAGEMENT - SCORE: 6-CLAUDIO TRANSFERS: BED, CHAIR, WHEELCHAIR: TRANSFERS: BED, CHAIR, WHEELCHAIR - STEP 1: Does the patient require assistance with bed, chair, or wheelchair transfers? Yes. TRANSFERS: BED, CHAIR, WHEELCHAIR - STEP 2: Does the patient require the assistance of a helper? Yes. TRANSFERS: BED, CHAIR, WHEELCHAIR - STEP 3: How much assistance does the patient require from the helper? Steadying/guiding assistance TRANSFERS: BED, CHAIR, WHEELCHAIR - SCORE: 4-MIN TRANSFERS: TOILET: TRANSFERS: TOILET - STEP 1: Does the patient require assistance with toilet transfers? Yes. TRANSFERS: TOILET - STEP 2: Does the patient require the assistance of a helper? Yes. TRANSFERS: TOILET - STEP 3: How much assistance does the patient require from the helper? Patient performs half or more of the tr ansferring tasks TRANSFERS: TOILET - STEP 4: Does the patient need only incidental help such as contact guard or steadying during toilet transfer? Yes. TRANSFERS: TOILET - SCORE: 4-MIN TRANSFERS: SHOWER: Activity did not occur on this shift TRANSFERS: SHOWER - SCORE: 0-UNK TRANSFERS: TUB: Activity did not occur on this shift TRANSFERS: TUB - SCORE: 0-UNK LOCOMOTION: WALK: Activity did not occur on this shift LOCOMOTION: WALK - SCORE: 0-UNK LOCOMOTION: WHEELCHAIR: Activity did not occur on this shift LOCOMOTION: WHEELCHAIR - SCORE: 0-UNK COMPREHENSION: COMPREHENSION - STEP 1: Does the patient require help to understand complex and abstract ideas (such as current events, finan gino, discharge planning, medical issues, relationships, etc)? No. COMPREHENSION - STEP 2: Does the patient need extra time, require an assistive device (such as glasses, hearing aids, or an a ugmentative communication system), OR does s/he have mild difficulty expressing complex and abstract ideas (including mild dysarthria or mild word-finding problems)? Yes. COMPREHENSION - SCORE: 6-CLAUDIO EXPRESSION EXPRESSION - STEP 1: Does the patient require help expressing complex and abstract ideas (such as current events, finances , discharge planning, medical issues, relationships, etc)? No. EXPRESSION - STEP 2: Does the patient need extra time, require an assistive device (such as augmentive communication syste m or a communication board), OR does s/he have mild difficulty expressing complex and abstract ideas (including mild dysarthria or mild word-find problems)? No. EXPRESSION - SCORE: 7-IND SOCIAL INTERACTION: SOCIAL INTERACTION - STEP 1: Does the patient require a helper to interact with others in social and therapeutic situations? No. SOCIAL INTERACTION - STEP 2: Does the patient need extra time in social situations, OR does s/he interact with staff, other patien ts, and family members ONLY in structured environments, OR does s/he require medication for social in teraction? Yes, patient needs extra time SOCIAL INTERACTION - SCORE: 6-CLAUDIO PROBLEM SOLVING: PROBLEM SOLVING - STEP 1: Does the patient need help to solve complex problems such as managing a checking account or confronti ng interpersonal problems? No. PROBLEM SOLVING - STEP 2: Does the patient require extra time to make decisions or solve problems, OR does s/he have slight dif ficulty reading, initiating, or self-correcting in unfamiliar situations? Yes, patient needs extra ti me. PROBLEM SOLVING - SCORE: 6-CLAUDIO MEMORY: MEMORY - STEP 1: Does the patient need help to remember frequently encountered people, daily routines, and executing r equests? No. MEMORY - STEP 2: Does the patient have slight difficulty recognizing frequently encountered people, daily routines, or executing requests without the need for repetition or using self-initiated or environmental cues to remember? Yes. MEMORY - SCORE: 6-CLAUDIO SIGNATURE PANEL: The following modified sections: Eating - Score, Grooming - Score, Bathing - Score, Dressing - Upper Body - Score, Dressing - Lower Body - Score, Toileting - Score, Bladder Management - Score, Bowel Man agement - Score, Transfers: Bed, Chair, Wheelchair - Score, Transfers: Toilet - Score, Transfers: Luz Maria wer - Score, Transfers: Tub - Score, Locomotion: Walk - Score, Locomotion: Wheelchair - Score, Compre hension - Score, Expression - Score, Social Interaction - Score, Problem Solving - Score, Memory - Sc ore were [electronically] signed by Sonu Reece on ThuMar 04 2018 13:21:50 GMT-0500 (Central Daylight Time)
--- NOTE | 2018-03-04 14:43 | FAST ---
ENCOUNTER DATE AND TIME: 03/04/2018 08:00 (CDT) NAME JAIRO GERMAIN DATE OF : 1955 DATE OF ADMISSION: 02/24/2018 23:45 (CDT) PHONE: AGE: 62 [facility]# [id number] GENDER: Male ENCOUNTER PHYSICIAN: Dr. Edilson Fritz M.D. ADMISSION DIAGNOSIS: - Stroke 01 - Left Body (Right Brain) (01.1) Sub acute basal ganglia infarct. EATING: Activity did not occur on this shift EATING - SCORE: 0-UNK GROOMING: Activity did not occur on this shift GROOMING - SCORE: 0-UNK BATHING: Activity did not occur on this shift BATHING - SCORE: 0-UNK DRESSING - UPPER BODY: Activity did not occur on this shift ARTICLES SCORE Total number of steps: 0 DRESSING - UPPER BODY - SCORE: 0-UNK DRESSING - LOWER BODY: Activity did not occur on this shift ARTICLES SCORE Total number of steps: 0 DRESSING - LOWER BODY - SCORE: 0-UNK TOILETING: Activity did not occur on this shift TOILETING - SCORE: 0-UNK BLADDER MANAGEMENT: Activity did not occur on this shift BLADDER MANAGEMENT - SCORE: 7-IND BOWEL MANAGEMENT: Activity did not occur on this shift BOWEL MANAGEMENT - SCORE: 7-IND TRANSFERS: BED, CHAIR, WHEELCHAIR: Activity did not occur on this shift TRANSFERS: BED, CHAIR, WHEELCHAIR - SCORE: 0-UNK TRANSFERS: TOILET: Activity did not occur on this shift TRANSFERS: TOILET - SCORE: 0-UNK TRANSFERS: SHOWER: Activity did not occur on this shift TRANSFERS: SHOWER - SCORE: 0-UNK TRANSFERS: TUB: Activity did not occur on this shift TRANSFERS: TUB - SCORE: 0-UNK LOCOMOTION: WALK: Activity did not occur on this shift LOCOMOTION: WALK - SCORE: 0-UNK LOCOMOTION: WHEELCHAIR: Activity did not occur on this shift LOCOMOTION: WHEELCHAIR - SCORE: 0-UNK LOCOMOTION: STAIRS: Activity did not occur on this shift LOCOMOTION: STAIRS - SCORE: 0-UNK COMPREHENSION: COMPREHENSION - STEP 1: Does the patient require help to understand complex and abstract ideas (such as current events, finan gino, discharge planning, medical issues, relationships, etc)? No. COMPREHENSION - STEP 2: Does the patient need extra time, require an assistive device (such as glasses, hearing aids, or an a ugmentative communication system), OR does s/he have mild difficulty expressing complex and abstract ideas (including mild dysarthria or mild word-finding problems)? No. COMPREHENSION - SCORE: 7-IND EXPRESSION EXPRESSION: TYPE: Non-Vocal EXPRESSION - STEP 1: Does the patient require help expressing complex and abstract ideas (such as current events, finances , discharge planning, medical issues, relationships, etc)? No. EXPRESSION - STEP 2: Does the patient need extra time, require an assistive device (such as augmentive communication syste m or a communication board), OR does s/he have mild difficulty expressing complex and abstract ideas (including mild dysarthria or mild word-find problems)? No. EXPRESSION - SCORE: 7-IND SOCIAL INTERACTION: SOCIAL INTERACTION - STEP 1: Does the patient require a helper to interact with others in social and therapeutic situations? No. SOCIAL INTERACTION - STEP 2: Does the patient need extra time in social situations, OR does s/he interact with staff, other patien ts, and family members ONLY in structured environments, OR does s/he require medication for social in teraction? No. SOCIAL INTERACTION - SCORE: 7-IND PROBLEM SOLVING: PROBLEM SOLVING - STEP 1: Does the patient need help to solve complex problems such as managing a checking account or confronti ng interpersonal problems? No. PROBLEM SOLVING - STEP 2: Does the patient require extra time to make decisions or solve problems, OR does s/he have slight dif ficulty reading, initiating, or self-correcting in unfamiliar situations? Yes, patient needs extra ti me. PROBLEM SOLVING - SCORE: 6-CLAUDIO MEMORY: MEMORY - STEP 1: Does the patient need help to remember frequently encountered people, daily routines, and executing r equests? No. MEMORY - STEP 2: Does the patient have slight difficulty recognizing frequently encountered people, daily routines, or executing requests without the need for repetition or using self-initiated or environmental cues to remember? Yes. MEMORY - SCORE: 6-CLAUDIO SIGNATURE PANEL: The following modified sections: Eating - Score, Grooming - Score, Bathing - Score, Dressing - Upper Body - Score, Dressing - Lower Body - Score, Toileting - Score, Transfers: Bed, Chair, Wheelchair - S core, Transfers: Toilet - Score, Transfers: Shower - Score, Transfers: Tub - Score, Comprehension - S core, Expression - Score, Social Interaction - Score, Problem Solving - Score, Memory - Score were [e lectronically] signed by IHSAN Harrison on ThuMar 04 2018 13:46:15 [facility]-0500 ([facility] Time)
--- NOTE | 2018-03-04 16:01 | FAST ---
ENCOUNTER DATE AND TIME: 03/04/2018 08:00 (CDT) NAME JAIRO GERMAIN DATE OF : 1955 DATE OF ADMISSION: 02/24/2018 23:45 (CDT) PHONE: AGE: 62 [facility]# [id number] GENDER: Male ENCOUNTER PHYSICIAN: Dr. Edilson Fritz M.D. ADMISSION DIAGNOSIS: - Stroke 01 - Left Body (Right Brain) (01.1) Sub acute basal ganglia infarct. EATING: Activity did not occur on this shift EATING - SCORE: 0-UNK GROOMING: Activity did not occur on this shift GROOMING - SCORE: 0-UNK BATHING: Activity did not occur on this shift BATHING - SCORE: 0-UNK DRESSING - UPPER BODY: Activity did not occur on this shift Patient is not dressing in public clothing ARTICLES SCORE Total number of steps: 0 DRESSING - UPPER BODY - SCORE: 0-UNK DRESSING - LOWER BODY: Activity did not occur on this shift Patient is not dressing in public clothing ARTICLES SCORE Total number of steps: 0 DRESSING - LOWER BODY - SCORE: 0-UNK TOILETING: Activity did not occur on this shift TOILETING - SCORE: 0-UNK BLADDER MANAGEMENT: Activity did not occur on this shift BLADDER MANAGEMENT - SCORE: 7-IND BOWEL MANAGEMENT: Activity did not occur on this shift BOWEL MANAGEMENT - SCORE: 7-IND TRANSFERS: BED, CHAIR, WHEELCHAIR: TRANSFERS: BED, CHAIR, WHEELCHAIR - STEP 1: Does the patient require assistance with bed, chair, or wheelchair transfers? Yes. TRANSFERS: BED, CHAIR, WHEELCHAIR - STEP 2: Does the patient require the assistance of a helper? Yes. TRANSFERS: BED, CHAIR, WHEELCHAIR - STEP 3: How much assistance does the patient require from the helper? Only supervision TRANSFERS: BED, CHAIR, WHEELCHAIR - SCORE: 5-SUP TRANSFERS: TOILET: Activity did not occur on this shift TRANSFERS: TOILET - SCORE: 0-UNK TRANSFERS: SHOWER: Activity did not occur on this shift TRANSFERS: SHOWER - SCORE: 0-UNK TRANSFERS: TUB: Activity did not occur on this shift TRANSFERS: TUB - SCORE: 0-UNK LOCOMOTION: WALK: LOCOMOTION: WALK - STEP 1: Does the patient need help to walk 150 feet? Yes. LOCOMOTION: WALK - STEP 2: How much assistance does the patient require to walk a minimum of 150 feet? Only supervision, cuing, or coaxing LOCOMOTION: WALK - SCORE: 5-SUP LOCOMOTION: WHEELCHAIR: LOCOMOTION: WHEELCHAIR - STEP 1: Does the patient need help to go 150 feet in a wheelchair? Yes. LOCOMOTION: WHEELCHAIR - STEP 2: How much assistance does the patient need from the helper? Only supervision, cuing, or coaxing LOCOMOTION: WHEELCHAIR - SCORE: 5-SUP LOCOMOTION: STAIRS: Activity did not occur on this shift LOCOMOTION: STAIRS - SCORE: 0-UNK COMPREHENSION: COMPREHENSION - SCORE: 0-UNK EXPRESSION EXPRESSION - SCORE: 0-UNK SOCIAL INTERACTION: SOCIAL INTERACTION - SCORE: 0-UNK PROBLEM SOLVING: PROBLEM SOLVING - SCORE: 0-UNK MEMORY: MEMORY - SCORE: 0-UNK SIGNATURE PANEL: The following modified sections: Transfers: Bed, Chair, Wheelchair - Score, Transfers: Toilet - Score , Locomotion: Walk - Score, Locomotion: Wheelchair - Score, Locomotion: Stairs - Score were [aziza lozano] signed by Maurisio Estrella PTA on ThuMar 04 2018 15:03:25 GMT-0500 (Central Daylight Time)
--- NOTE | 2018-03-04 16:08 | R.PN ---
ENCOUNTER DATE AND TIME: 03/04/2018 15:00 (CDT) NAME JAIRO GERMAIN DATE OF : 1955 DATE OF ADMISSION: 02/24/2018 23:45 (CDT) Sub acute basal ganglia infarctCHIEF COMPLAINT: Basal ganglia stroke SUBJECTIVE: Pt denied any Shortness of Breath. Pt denied any depression. Bed mobility was done with standby assistance. Ambulated 368' with standby assistance using a sarah g walker. Self-propelled wheelchair 250' with standby assistance with a rolling walker. VITAL SIGNS Temperature: 97.4 F SBP/DBP: 114/57 Pulse: 57 Resp: 16 MEDICATION ALLERGIES: No Known Drug Allergies (NKDA) ENVIRONMENTAL ALLERGIES: None Known - Substance Allergies None Known - Other Allergies None Known NURSING: - Shower allowing shower - Bladder care per protocol - Skin care per protocol PRECAUTIONS: - Fall Precaution Bed alarm TABS alarm Wheel chair alarm Critical cord compression c-spine ACTIVITIES OOB only with supervision THERAPIES: - Occupational Therapy Evaluate and Treat. Cognitive Retraining. Visual Perceptual Training. - Speech Therapy Cognitive Training. Memory Strategies. Expressive Language Skills. Receptive Language Skills. Speech Intelligibility Training. - Physical Therapy Evaluate and Treat. PHYSICAL EXAM - Gen Alert and awake Lying in bed No apparent distress Oriented to: person, time, and place - Skin No skin breakdown. Normacephalic - Eyes No abnormalities - ENMT No abnormalities - Neck No abnormalities - CVS RRR - Chest Clear - Abd Soft - GI nondistended Deferred - No abnormalities - Ext No significant edema - MSK 4+/5 weakness in left upper and lower extremity - Neuro 4/5 strength left upper and lower extremities. - Psych No abnormalities ASSESSMENT: Pt. is a 62 yo Right-handed white male.On 02/19/2018 Pt. presented to [facility] with sudden onset of left-side weakness.On 02/19/2018 he was admitted to [facility] with diagnosis Sub acute basal ganglia infarct.His impairment category is Stroke 01 - Left Emir dy (Right Brain) (01.1).Pre-morbidly, Pt. was independent/mod-I in Transfers Control, Communication, Social Cognition, Self-Care, Locomotion, and Sphincter Control; and he had good Sphincter Control.Cur rently, he has deficits of Transfers Control, Balance, Self-Care, Locomotion, Endurance, and Safety A wareness.Pt. is now referred to [facility] for acute in-patient rehabilitation in order to maximize patient's functional independence in activities of daily living, strength, ROM, and mobility.- Rehab Goal Patient has realistic goal of being discharged at assistance level 6-Nate to reside at Home with Fam evelyne/Relatives. MDM/PLAN: - Diet Type Continue Heart healthy for Dementia, TBI, Stroke, or others - Physical Therapy Gait dysfunction - to improve, our physical therapists will perform initial evaluation of pt's statu s upon admission and devise an individualized program for Gait Training, and Wheel Chair mobility Inability to transfer - to improve, our physical therapists will perform initial evaluation of pt's status upon admission and devise an individualized program for Bed mobility Need for home safety evaluation - to improve, our physical therapists will perform initial evaluatio n of pt's status upon admission and devise an individualized program for Home Evaluation Need in caregiver upon discharge - to improve, our physical therapists will perform initial evaluati on of pt's status upon admission and devise an individualized program for Caregiver Training New precaution - to improve, our physical therapists will perform initial evaluation of pt's status upon admission and devise an individualized program for Patient precaution education Edema - to improve, our physical therapists will perform initial evaluation of pt's status upon admi ssion and devise an individualized program for Elevation Training, and Lymphedema Therapy Pain - to improve, our physical therapists will perform initial evaluation of pt's status upon admis mason and devise an individualized program for Modalities Poor balance - to improve, our physical therapists will perform initial evaluation of pt's status up on admission and devise an individualized program for Balance Training Poor endurance - to improve, our physical therapists will perform initial evaluation of pt's status upon admission and devise an individualized program for Endurance Training Weakness - to improve, our physical therapists will perform initial evaluation of pt's status upon a dmission and devise an individualized program for Aquatic Therapy, Neuromuscular Reeducation, and Str engthening Achieving independence - to improve, our physical therapists will perform initial evaluation of pt's status upon admission and devise an individualized program for Community Reintegration Activities - Diet - Liquid Texture Continue Regular - Tube Feed Continue N/A - Bladder care per protocol - Weight Bearing Precaution WBAT left LE - Fall Precaution Bed alarm TABS alarm Wheel chair alarm Critical cord compression c-spine - Skin care per protocol - Diet - Solid Texture Continue Regular - Shower allowing shower - Occupational Therapy ADL deficits - to improve, our occupation therapists will perform initial evaluation of pt's status upon admission and devise an individualized program for Bathing, Bed mobility, Community Reintegratio n, Cooking, Dressing, Eating, Fine Motor Skills, Grooming, Homemaking, Kitchen Mobility, Laundry, Pat ient Education, Safety Awareness, Splinting - Positioning, Transfers(Toilet, Tub, Shower), and Wheel Chair Management Need for home care and home health aides teacher - to improve, our occupation therapists will perform initial evaluation of pt's status upon admission and devise an individualized program for Caregiver Training Weakness - to improve, our occupation therapists will perform initial evaluation of pt's status upon admission and devise an individualized program for Aquatic Therapy, Balance, Endurance, UE ROM, and UE strengthening FUNCTIONAL STATUS: UPDATED AT WEEKLY TEAM CONFERENCE - Bladder Same accident frequency: 7-Ind - No accidents in the past 7 days - Bowel Same accident frequency: 7-Ind - No accidents in the past 7 days - Walking Same score based on distance walked: 3(>=150ft) - Wheelchair Same score based on distance traveled: 0(N/A) FUNCTIONAL STATUS: - Self-Care A. Eating sup B. Grooming sup C. Bathing sup D. Dressing - Upper sup E. Dressing - Lower sup F. Toileting Na - Sphincter Control G: Bladder control Ind H: Bowel control Ind - Transfers Control I. Bed/Chair/Wheelchair Na J. Toilet Na K. Tub/Shower ADNO - Locomotion L. Walk/Wheelchair (B) Na M. Stairs ADNO - Communication N. Comprehension (B) Nate O. Expression (B) Nate - Social Cognition P. Social Interaction Nate Q. Problem Solving Nate R. Memory Nate - Endurance Fair - Balance Poor - Safety Awareness Fair [facility] DEFICITS: Transfers Control, Balance, Self-Care, Locomotion, Endurance, and Safety Awareness SIGNATURE PANEL: (CDT)
[2018-03-04] MEDS: ENOXAPARIN 40 MG/0.4 ML SQ SCH (17:09)
[2018-03-04] MEDS: DOCUSATE NA/SENNA CONC 1 TAB PO SCH (20:08)
[2018-03-04] MEDS: ATORVASTATIN 80 MG TAB PO SCH (20:10)
--- NOTE | 2018-03-05 04:26 | FAST ---
SHIFT START DATE/TIME: 03/04/2018 19:00 (CDT) SHIFT END DATE/TIME: 03/05/2018 07:00 (CDT) NAME JAIRO GERMAIN DATE OF : 1955 DATE OF ADMISSION: 02/24/2018 23:45 (CDT) PHONE: AGE: 62 [facility]# [id number] GENDER: Male ENCOUNTER PHYSICIAN: Dr. Edilson Fritz M.D. ADMISSION DIAGNOSIS: - Stroke 01 - Left Body (Right Brain) (01.1) Sub acute basal ganglia infarct. EATING: EATING - STEP 1: Does the patient require assistance when eating? Yes. EATING - STEP 2: Does the patient require the assistance of a helper? No, patient only requires an assistive device, O R s/he takes more than reasonable time to eat, OR there is a safety concern, OR s/he requires modifie d food consistency EATING - SCORE: 6-CLAUDIO GROOMING: Comb/brush hair Oral care Wash, rinse, and dry face Wash, rinse, and dry hands GROOMING - STEP 1: Does the patient require assistance when grooming? Yes. GROOMING - STEP 2: Does the patient require the assistance of a helper? No. The patient only requires an assistive devic e, OR takes more than reasonable time to groom, OR there is a concern for safety as the patient groom s GROOMING - SCORE: 6-CLAUDIO BATHING: Activity did not occur on this shift BATHING - SCORE: 0-UNK DRESSING - UPPER BODY: Patient is not dressing in public clothing ARTICLES SCORE Total number of steps: 0 DRESSING - UPPER BODY - SCORE: 0-UNK DRESSING - LOWER BODY: Patient is not dressing in public clothing ARTICLES SCORE Total number of steps: 0 DRESSING - LOWER BODY - SCORE: 0-UNK TOILETING: TOILETING - STEP 1: Does the patient require assistance with toileting? Yes. TOILETING - STEP 2: Does the patient require the assistance of a helper? Yes. TOILETING - STEP 3: How much assistance does the patient require from the helper? Only supervision TOILETING - SCORE: 5-SUP BLADDER MANAGEMENT: BLADDER MANAGEMENT - STEP 1: Does the patient control the bladder completely and intentionally without equipment or devices or med ications, and is always continent? No. BLADDER MANAGEMENT - STEP 2: Does the patient require the assistance of a helper? Yes. BLADDER MANAGEMENT - STEP 3: How much assistance does the patient require from the helper? Only set-up of equipment - such as plac ing it within reach of the patient or emptying a device - to maintain either satisfactory voiding pat tern or managing an external device, such as an absorbent pad, ileal device, or catheter BLADDER MANAGEMENT - SCORE: 5-SUP BLADDER MANAGEMENT - FREQUENCY OF ACCIDENTS: BLADDER MANAGEMENT(FA) - STEP 1: How many accidents has the patient had during the current shift? 0 BOWEL MANAGEMENT: Activity did not occur on this shift BOWEL MANAGEMENT - SCORE: 7-IND TRANSFERS: BED, CHAIR, WHEELCHAIR: TRANSFERS: BED, CHAIR, WHEELCHAIR - STEP 1: Does the patient require assistance with bed, chair, or wheelchair transfers? Yes. TRANSFERS: BED, CHAIR, WHEELCHAIR - STEP 2: Does the patient require the assistance of a helper? Yes. TRANSFERS: BED, CHAIR, WHEELCHAIR - STEP 3: How much assistance does the patient require from the helper? Only supervision TRANSFERS: BED, CHAIR, WHEELCHAIR - SCORE: 5-SUP TRANSFERS: TOILET: TRANSFERS: TOILET - STEP 1: Does the patient require assistance with toilet transfers? Yes. TRANSFERS: TOILET - STEP 2: Does the patient require the assistance of a helper? Yes. TRANSFERS: TOILET - STEP 3: How much assistance does the patient require from the helper? Only supervision, cuing, coaxing, OR he lp to set out transfer equipment or to lock brakes and/or lift foot rests TRANSFERS: TOILET - SCORE: 5-SUP TRANSFERS: SHOWER: Activity did not occur on this shift TRANSFERS: SHOWER - SCORE: 0-UNK TRANSFERS: TUB: Activity did not occur on this shift TRANSFERS: TUB - SCORE: 0-UNK LOCOMOTION: WALK: Activity did not occur on this shift LOCOMOTION: WALK - SCORE: 0-UNK LOCOMOTION: WHEELCHAIR: Activity did not occur on this shift LOCOMOTION: WHEELCHAIR - SCORE: 0-UNK COMPREHENSION: COMPREHENSION: TYPE: Both COMPREHENSION - STEP 1: Does the patient require help to understand complex and abstract ideas (such as current events, finan gino, discharge planning, medical issues, relationships, etc)? No. COMPREHENSION - STEP 2: Does the patient need extra time, require an assistive device (such as glasses, hearing aids, or an a ugmentative communication system), OR does s/he have mild difficulty expressing complex and abstract ideas (including mild dysarthria or mild word-finding problems)? Yes. COMPREHENSION - SCORE: 6-CLAUDIO EXPRESSION EXPRESSION: TYPE: Both EXPRESSION - STEP 1: Does the patient require help expressing complex and abstract ideas (such as current events, finances , discharge planning, medical issues, relationships, etc)? No. EXPRESSION - STEP 2: Does the patient need extra time, require an assistive device (such as augmentive communication syste m or a communication board), OR does s/he have mild difficulty expressing complex and abstract ideas (including mild dysarthria or mild word-find problems)? Yes. EXPRESSION - SCORE: 6-CLAUDIO SOCIAL INTERACTION: SOCIAL INTERACTION - STEP 1: Does the patient require a helper to interact with others in social and therapeutic situations? No. SOCIAL INTERACTION - STEP 2: Does the patient need extra time in social situations, OR does s/he interact with staff, other patien ts, and family members ONLY in structured environments, OR does s/he require medication for social in teraction? No. SOCIAL INTERACTION - SCORE: 7-IND PROBLEM SOLVING: PROBLEM SOLVING - STEP 1: Does the patient need help to solve complex problems such as managing a checking account or confronti ng interpersonal problems? No. PROBLEM SOLVING - STEP 2: Does the patient require extra time to make decisions or solve problems, OR does s/he have slight dif ficulty reading, initiating, or self-correcting in unfamiliar situations? Yes, patient needs extra ti me. PROBLEM SOLVING - SCORE: 6-CLAUDIO MEMORY: MEMORY - STEP 1: Does the patient need help to remember frequently encountered people, daily routines, and executing r equests? No. MEMORY - STEP 2: Does the patient have slight difficulty recognizing frequently encountered people, daily routines, or executing requests without the need for repetition or using self-initiated or environmental cues to remember? Yes. MEMORY - SCORE: 6-CLAUDIO SIGNATURE PANEL: The following modified sections: Eating - Score, Grooming - Score, Bathing - Score, Dressing - Upper Body - Score, Dressing - Lower Body - Score, Toileting - Score, Bladder Management - Score, Bowel Man agement - Score, Transfers: Bed, Chair, Wheelchair - Score, Transfers: Toilet - Score, Transfers: Luz Maria wer - Score, Transfers: Tub - Score, Locomotion: Walk - Score, Locomotion: Wheelchair - Score, Compre hension - Score, Expression - Score, Social Interaction - Score, Problem Solving - Score, Memory - Sc ore were [electronically] signed by Susan Thibodeaux C.N.A. on ThuMar 05 2018 03:28:36 T-0500 ( Central Daylight Time)
[2018-03-05] MEDS: VALSARTAN 160 MG TAB PO SCH ×2 (07:07→20:31)
[2018-03-05] MEDS: TRAMADOL HCL 50 MG TAB PO PRN ×3 (07:08→20:35)
[2018-03-05] MEDS ORDERED: NAPROXEN 250 MG TAB PO SCH (08:00)
[2018-03-05] MEDS: ASPIRIN EC 81 MG TAB PO SCH (08:02)
[2018-03-05] MEDS: CLOPIDOGREL 75 MG TABLET PO SCH (08:02)
[2018-03-05] MEDS: LIDOCAINE 5% PATCH TOP SCH (08:03)
--- NOTE | 2018-03-05 09:46 | P.RH.PN ---
Estimated Length of Stay: 14 Expected Discharge Date: 03/09/18 Discharge Disposition Plan: Home Family Support: Yes Assisted Goal: Mobility, Transfers, Self Care Vital Signs: Last Vital Signs Temp 97.2 F 03/05/18 08:38 Pulse 59 03/05/18 08:38 Resp 16 03/05/18 08:38 BP 96/61 03/05/18 08:38 Pulse Ox 99 03/05/18 08:38 Laboratory: Laboratory Last Values WBC 6.6 K/uL (4.3-10.9) 03/04/18 05:47 RBC 3.74 M/uL (4.33-5.43) L 03/04/18 05:47 Hgb 11.2 g/dL (13.6-17.9) L 03/04/18 05:47 Hct 32.3 % (39.6-49.0) L 03/04/18 05:47 MCV 86.4 fL (80-100) 03/04/18 05:47 MCH 29.9 pg (27.0-35.0) 03/04/18 05:47 MCHC 34.6 g/dL (32.0-36.0) 03/04/18 05:47 RDW 14.0 % (12.1-15.2) 03/04/18 05:47 Plt Count 193 K/uL (152-406) 03/04/18 05:47 MPV 8.5 fL (7.6-11.3) 03/04/18 05:47 Neutrophils % 55.9 % (41.7-73.7) 03/04/18 05:47 Lymphocytes % 26.9 % (15.3-44.8) 03/04/18 05:47 Monocytes % 13.3 % (3.3-12.3) H 03/04/18 05:47 Eosinophils % 3.6 % (0-4.4) 03/04/18 05:47 Basophils % 0.3 % (0-1.3) 03/04/18 05:47 Absolute Neutrophils 3.7 K/uL (1.8-8.0) 03/04/18 05:47 Absolute Lymphocytes 1.8 K/uL (0.7-4.9) 03/04/18 05:47 Absolute Monocytes 0.9 K/uL (0.1-1.3) 03/04/18 05:47 Absolute Eosinophils 0.2 K/uL (0-0.5) 03/04/18 05:47 Absolute Basophils 0.0 K/uL (0-0.5) 03/04/18 05:47 Sodium 137 mEq/L (135-145) 03/04/18 05:47 Potassium 4.1 mEq/L (3.6-5.0) 03/04/18 05:47 Chloride 103 mEq/L (101-111) 03/04/18 05:47 Carbon Dioxide 28 mEq/L (21-31) 03/04/18 05:47 BUN 29 mg/dL (6-20) H 03/04/18 05:47 Creatinine 1.02 mg/dL (0.61-1.24) 03/04/18 05:47 Estimated GFR 74 mL/min (=/>90) L 03/04/18 05:47 Glucose 77 mg/dL (65-120) 03/04/18 05:47 Calcium 9.2 mg/dL (8.5-10.5) 03/04/18 05:47 Magnesium 2.0 mg/dL (1.8-2.5) 03/04/18 05:47 Albumin 3.7 g/dL (3.2-5.5) 03/04/18 05:47 Prealbumin 21.4 mg/dl (18-38) 03/04/18 05:47 Urine Color Yellow 02/25/18 00:05 Urine Appearance Clear 02/25/18 00:05 Urine pH 7.0 (5.0-7.0) 02/25/18 00:05 Ur Specific [place] 1.010 (1.005-1.030) 02/25/18 00:05 Urine Ketones Negative (NEG) 02/25/18 00:05 Urine Blood Negative (NEG) 02/25/18 00:05 Urine Nitrite Negative (NEG) 02/25/18 00:05 Urine Bilirubin Negative (NEG) 02/25/18 00:05 Urine Urobilinogen 0.2 mg/dL (0.2-1.0) 02/25/18 00:05 Ur Leukocyte Esterase Negative (NEG) 02/25/18 00:05 Urine RBC <5 /HPF (NONE SEEN) 02/25/18 00:05 Urine WBC None seen /HPF (<5) 02/25/18 00:05 Ur Squamous Epith Cells <5 /HPF (NONE SEEN) 02/25/18 00:05 Urine Bacteria <20 /HPF (NONE SEEN) 02/25/18 00:05 Urine Culture Reflexed Not needed 02/25/18 00:05 Urine Glucose Negative (NEG) 02/25/18 00:05 Urine Total Protein Trace (NEG) 02/25/18 00:05 Weight: 210 lb 8 oz Wound Present: Yes Closed Surgical Incision Present: Yes Negative Pressure Wound Therapy Present: No Physician Update: He is making fair overall progress with physical and occupational therapy. He contunues to be debilitated. His blood work is essentially unremarkable. Medical Issues: pain on RLE Pain Issues: on Tylenol ES 500mg Q4H PRN Functional Improvement: Patient is continuing to work toward goals, and is progressing, however progressing at a slow rate. Patient experiences fatigue, lethargy, and muscle soreness/cramps throughout. Functional Improvement Occupational Therapy: pt can benifit for cont therapy to address pt's safety and energy conservation techniques for training for LB dressing. Cont increasing pt's UB strength and FMC for Both UE's for adl and g/ h tasks. Cont to increase pt's static standing balance and endurance. Cont with the POC and the goals by the supervising OTR. Summary: Patient's care plan and group home goals have been reviewed and revised as necessary. Please see the Rehabilitation Signature page for all necessary signatures.
--- NOTE | 2018-03-05 11:59 | FAST ---
SHIFT START DATE/TIME: 03/05/2018 07:00 (CDT) SHIFT END DATE/TIME: 03/05/2018 19:00 (CDT) NAME JAIRO GERMAIN DATE OF : 1955 DATE OF ADMISSION: 02/24/2018 23:45 (CDT) PHONE: AGE: 62 [facility]# [id number] GENDER: Male ENCOUNTER PHYSICIAN: Dr. Edilson Fritz M.D. ADMISSION DIAGNOSIS: - Stroke 01 - Left Body (Right Brain) (01.1) Sub acute basal ganglia infarct. EATING: EATING - STEP 1: Does the patient require assistance when eating? Yes. EATING - STEP 2: Does the patient require the assistance of a helper? Yes. EATING - STEP 3: Does the patient perform half or more of the eating tasks? Yes. EATING - STEP 4: Does the patient need only supervision, cuing, coaxing OR help to apply an orthosis OR help to cut fo od, open containers, pour liquids, or butter bread? Yes. EATING - SCORE: 5-SUP GROOMING: Comb/brush hair Oral care Wash, rinse, and dry face Wash, rinse, and dry hands GROOMING - STEP 1: Does the patient require assistance when grooming? Yes. GROOMING - STEP 2: Does the patient require the assistance of a helper? No. The patient only requires an assistive devic e, OR takes more than reasonable time to groom, OR there is a concern for safety as the patient groom s GROOMING - SCORE: 6-CLAUDIO BATHING: Activity did not occur on this shift BATHING - SCORE: 0-UNK DRESSING - UPPER BODY: Activity did not occur on this shift ARTICLES SCORE Total number of steps: 0 DRESSING - UPPER BODY - SCORE: 0-UNK DRESSING - LOWER BODY: Activity did not occur on this shift ARTICLES SCORE Total number of steps: 0 DRESSING - LOWER BODY - SCORE: 0-UNK TOILETING: TOILETING - STEP 1: Does the patient require assistance with toileting? Yes. TOILETING - STEP 2: Does the patient require the assistance of a helper? Yes. TOILETING - STEP 3: How much assistance does the patient require from the helper? Only supervision TOILETING - SCORE: 5-SUP BLADDER MANAGEMENT: BLADDER MANAGEMENT - STEP 1: Does the patient control the bladder completely and intentionally without equipment or devices or med ications, and is always continent? No. BLADDER MANAGEMENT - STEP 2: Does the patient require the assistance of a helper? No, patient requires and independently uses an a ssistive device, such as a urinal, bedpan, bedside commode, catheter, absorbent pad, or collecting de vice BLADDER MANAGEMENT - SCORE: 6-CLAUDIO BOWEL MANAGEMENT: BOWEL MANAGEMENT - STEP 1: Does the patient control bowels completely and intentionally without equipment devices or medications AND is always continent? No. BOWEL MANAGEMENT - STEP 2: Does the patient require the assistance of a helper? No, patient requires and manages independently a n assistive device such as a bedpan, bedside commode, absorbent pad, incontinent device, or collectin g device BOWEL MANAGEMENT - SCORE: 6-CLAUDIO TRANSFERS: BED, CHAIR, WHEELCHAIR: TRANSFERS: BED, CHAIR, WHEELCHAIR - STEP 1: Does the patient require assistance with bed, chair, or wheelchair transfers? Yes. TRANSFERS: BED, CHAIR, WHEELCHAIR - STEP 2: Does the patient require the assistance of a helper? Yes. TRANSFERS: BED, CHAIR, WHEELCHAIR - STEP 3: How much assistance does the patient require from the helper? Steadying/guiding assistance TRANSFERS: BED, CHAIR, WHEELCHAIR - SCORE: 4-MIN TRANSFERS: TOILET: TRANSFERS: TOILET - STEP 1: Does the patient require assistance with toilet transfers? Yes. TRANSFERS: TOILET - STEP 2: Does the patient require the assistance of a helper? Yes. TRANSFERS: TOILET - STEP 3: How much assistance does the patient require from the helper? Patient performs half or more of the tr ansferring tasks TRANSFERS: TOILET - STEP 4: Does the patient need only incidental help such as contact guard or steadying during toilet transfer? Yes. TRANSFERS: TOILET - SCORE: 4-MIN TRANSFERS: SHOWER: Activity did not occur on this shift TRANSFERS: SHOWER - SCORE: 0-UNK TRANSFERS: TUB: Activity did not occur on this shift TRANSFERS: TUB - SCORE: 0-UNK LOCOMOTION: WALK: Activity did not occur on this shift LOCOMOTION: WALK - SCORE: 0-UNK LOCOMOTION: WHEELCHAIR: Activity did not occur on this shift LOCOMOTION: WHEELCHAIR - SCORE: 0-UNK COMPREHENSION: COMPREHENSION - STEP 1: Does the patient require help to understand complex and abstract ideas (such as current events, finan gino, discharge planning, medical issues, relationships, etc)? No. COMPREHENSION - STEP 2: Does the patient need extra time, require an assistive device (such as glasses, hearing aids, or an a ugmentative communication system), OR does s/he have mild difficulty expressing complex and abstract ideas (including mild dysarthria or mild word-finding problems)? Yes. COMPREHENSION - SCORE: 6-CLAUDIO EXPRESSION EXPRESSION - STEP 1: Does the patient require help expressing complex and abstract ideas (such as current events, finances , discharge planning, medical issues, relationships, etc)? No. EXPRESSION - STEP 2: Does the patient need extra time, require an assistive device (such as augmentive communication syste m or a communication board), OR does s/he have mild difficulty expressing complex and abstract ideas (including mild dysarthria or mild word-find problems)? Yes. EXPRESSION - SCORE: 6-CLAUDIO SOCIAL INTERACTION: SOCIAL INTERACTION - STEP 1: Does the patient require a helper to interact with others in social and therapeutic situations? No. SOCIAL INTERACTION - STEP 2: Does the patient need extra time in social situations, OR does s/he interact with staff, other patien ts, and family members ONLY in structured environments, OR does s/he require medication for social in teraction? Yes, patient needs extra time SOCIAL INTERACTION - SCORE: 6-CLAUDIO PROBLEM SOLVING: PROBLEM SOLVING - STEP 1: Does the patient need help to solve complex problems such as managing a checking account or confronti ng interpersonal problems? No. PROBLEM SOLVING - STEP 2: Does the patient require extra time to make decisions or solve problems, OR does s/he have slight dif ficulty reading, initiating, or self-correcting in unfamiliar situations? Yes, patient needs extra ti me. PROBLEM SOLVING - SCORE: 6-CLAUDIO MEMORY: MEMORY - STEP 1: Does the patient need help to remember frequently encountered people, daily routines, and executing r equests? No. MEMORY - STEP 2: Does the patient have slight difficulty recognizing frequently encountered people, daily routines, or executing requests without the need for repetition or using self-initiated or environmental cues to remember? No. MEMORY - SCORE: 7-IND SIGNATURE PANEL: The following modified sections: Eating - Score, Grooming - Score, Bathing - Score, Dressing - Upper Body - Score, Dressing - Lower Body - Score, Toileting - Score, Bladder Management - Score, Bowel Man agement - Score, Transfers: Bed, Chair, Wheelchair - Score, Transfers: Toilet - Score, Transfers: Luz Maria wer - Score, Transfers: Tub - Score, Locomotion: Walk - Score, Locomotion: Wheelchair - Score, Compre hension - Score, Expression - Score, Social Interaction - Score, Problem Solving - Score, Memory - Sc ore were [electronically] signed by Sonu Reece on ThuMar 05 2018 11:01:27 GMT-0500 (Central Daylight Time)
--- NOTE | 2018-03-05 14:44 | FAST ---
ENCOUNTER DATE AND TIME: 03/05/2018 08:00 (CDT) NAME JAIRO GERMAIN DATE OF : 1955 DATE OF ADMISSION: 02/24/2018 23:45 (CDT) PHONE: AGE: 62 [facility]# [id number] GENDER: Male ENCOUNTER PHYSICIAN: Dr. Edilson Fritz M.D. ADMISSION DIAGNOSIS: - Stroke 01 - Left Body (Right Brain) (01.1) Sub acute basal ganglia infarct. EATING: Activity did not occur on this shift EATING - SCORE: 0-UNK GROOMING: Comb/brush hair Wash, rinse, and dry face Wash, rinse, and dry hands GROOMING - STEP 1: Does the patient require assistance when grooming? No. GROOMING - SCORE: 7-IND BATHING: Abdomen Buttocks Chest Left arm Left lower leg and foot Left upper leg Perineal area Right arm Right lower leg and foot Right upper leg BATHING - STEP 1: Does the patient require assistance when bathing? Yes. BATHING - STEP 2: Does the patient require the assistance of a helper? Yes. BATHING - STEP 3: How much assistance does the patient require from the helper? Only incidental help such as placement of a wash cloth in his/her hand a few times as s/he bathes OR help to bathe just one or two areas of the body BATHING - SCORE: 4-MIN DRESSING - UPPER BODY: T-shirt/pullover shirt (four steps) ARTICLES SCORE Total number of steps: 4 DRESSING - UPPER BODY - STEP 1: Does the patient require help when dressing above the waist? Yes. DRESSING - UPPER BODY - STEP 2: Does the patient require the assistance of a helper? Yes. DRESSING - UPPER BODY - STEP 3: Does the helper touch the patient while dressing? No. DRESSING - UPPER BODY - SCORE: 5-SUP DRESSING - LOWER BODY: Sock - Left foot (one step) Sock - Right foot (one step) Underwear (three steps) Zippered pants (four steps) ARTICLES SCORE Total number of steps: 9 DRESSING - LOWER BODY - STEP 1: Does the patient require help when dressing below the waist? Yes. DRESSING - LOWER BODY - STEP 2: Does the patient require the assistance of a helper? Yes. DRESSING - LOWER BODY - STEP 3: Does the helper touch the patient while dressing? Yes. DRESSING - LOWER BODY - STEP 4: How many of the total steps does the patient complete on his/her own? 7 DRESSING - LOWER BODY - SCORE: 4-MIN TOILETING: Activity did not occur on this shift TOILETING - SCORE: 0-UNK BLADDER MANAGEMENT: Activity did not occur on this shift BLADDER MANAGEMENT - SCORE: 7-IND BOWEL MANAGEMENT: Activity did not occur on this shift BOWEL MANAGEMENT - SCORE: 7-IND TRANSFERS: BED, CHAIR, WHEELCHAIR: Activity did not occur on this shift TRANSFERS: BED, CHAIR, WHEELCHAIR - SCORE: 0-UNK TRANSFERS: TOILET: Activity did not occur on this shift TRANSFERS: TOILET - SCORE: 0-UNK TRANSFERS: SHOWER: Activity did not occur on this shift TRANSFERS: SHOWER - SCORE: 0-UNK TRANSFERS: TUB: TRANSFERS: TUB - STEP 1: Does the patient require assistance with tub transfers? Yes. TRANSFERS: TUB - STEP 2: Does the patient require the assistance of a helper? Yes. TRANSFERS: TUB - STEP 3: How much assistance does the patient require from the helper? Incidental help such as contact guardin g or steadying, OR help to lift one leg into the tub TRANSFERS: TUB - SCORE: 4-MIN LOCOMOTION: WALK: Activity did not occur on this shift LOCOMOTION: WALK - SCORE: 0-UNK LOCOMOTION: WHEELCHAIR: Activity did not occur on this shift LOCOMOTION: WHEELCHAIR - SCORE: 0-UNK LOCOMOTION: STAIRS: Activity did not occur on this shift LOCOMOTION: STAIRS - SCORE: 0-UNK COMPREHENSION: COMPREHENSION: TYPE: Both COMPREHENSION - STEP 1: Does the patient require help to understand complex and abstract ideas (such as current events, finan gino, discharge planning, medical issues, relationships, etc)? Yes. COMPREHENSION - STEP 2: Does the patient require help to understand questions or statements about basic needs or ideas (such as hunger, thirst, sleep, safety, daily schedule, room location, or discomfort) half or more of the t bren? No. COMPREHENSION - STEP 3: How often does the patient need help to understand directions and conversation about basic needs? 10% - 24% of the time COMPREHENSION - SCORE: 4-MIN EXPRESSION EXPRESSION: TYPE: Both EXPRESSION - STEP 1: Does the patient require help expressing complex and abstract ideas (such as current events, finances , discharge planning, medical issues, relationships, etc)? Yes. EXPRESSION - STEP 2: Does the patient require help to express basic necessities or ideas (such as hunger, thirst, sleep, s afety, daily schedule, room location, or discomfort) half or more of the time? No. EXPRESSION - STEP 3: How often does the patient need help to express directions and conversation about basic needs? Less t gipson 10% of the time EXPRESSION - SCORE: 5-SUP SOCIAL INTERACTION: SOCIAL INTERACTION - STEP 1: Does the patient require a helper to interact with others in social and therapeutic situations? Yes. SOCIAL INTERACTION - STEP 2: Does the patient interact appropriately half or more of the time? Yes. SOCIAL INTERACTION - STEP 3: How often does the patient need help to interact appropriately? Less than 10% of the time SOCIAL INTERACTION - SCORE: 5-SUP PROBLEM SOLVING: PROBLEM SOLVING - STEP 1: Does the patient need help to solve complex problems such as managing a checking account or confronti ng interpersonal problems? Yes. PROBLEM SOLVING - STEP 2: Does the patient solve basic routine problems half or more of the time? Yes. PROBLEM SOLVING - STEP 3: How often does the patient need help to solve basic routine problems? 10%-24% of the time PROBLEM SOLVING - SCORE: 4-MIN MEMORY: MEMORY - STEP 1: Does the patient need help to remember frequently encountered people, daily routines, and executing r equests? Yes. MEMORY - STEP 2: How often does the patient need help to remember frequently encountered people, daily routines, and e xecuting requests? 10% - 24% of the time MEMORY - SCORE: 4-MIN SIGNATURE PANEL: The following modified sections: Eating - Score, Grooming - Score, Bathing - Score, Dressing - Upper Body - Score, Dressing - Lower Body - Score, Toileting - Score, Transfers: Bed, Chair, Wheelchair - S core, Transfers: Toilet - Score, Transfers: Shower - Score, Transfers: Tub - Score, Comprehension - S core, Expression - Score, Social Interaction - Score, Problem Solving - Score, Memory - Score were [e lectronically] signed by Brianda Lowry OT on ThuMar 05 2018 13:47:09 T-0500 ([place] Da ylight Time)
--- NOTE | 2018-03-05 16:41 | FAST ---
ENCOUNTER DATE AND TIME: 03/05/2018 08:00 (CDT) NAME JAIRO GERMAIN DATE OF : 1955 DATE OF ADMISSION: 02/24/2018 23:45 (CDT) PHONE: AGE: 62 [facility]# [id number] GENDER: Male ENCOUNTER PHYSICIAN: Dr. Edilson Fritz M.D. ADMISSION DIAGNOSIS: - Stroke 01 - Left Body (Right Brain) (01.1) Sub acute basal ganglia infarct. EATING: Activity did not occur on this shift EATING - SCORE: 0-UNK GROOMING: Activity did not occur on this shift GROOMING - SCORE: 0-UNK BATHING: Activity did not occur on this shift BATHING - SCORE: 0-UNK DRESSING - UPPER BODY: Activity did not occur on this shift Patient is not dressing in public clothing ARTICLES SCORE Total number of steps: 0 DRESSING - UPPER BODY - SCORE: 0-UNK DRESSING - LOWER BODY: Activity did not occur on this shift Patient is not dressing in public clothing ARTICLES SCORE Total number of steps: 0 DRESSING - LOWER BODY - SCORE: 0-UNK TOILETING: Activity did not occur on this shift TOILETING - SCORE: 0-UNK BLADDER MANAGEMENT: Activity did not occur on this shift BLADDER MANAGEMENT - SCORE: 7-IND BOWEL MANAGEMENT: Activity did not occur on this shift BOWEL MANAGEMENT - SCORE: 7-IND TRANSFERS: BED, CHAIR, WHEELCHAIR: TRANSFERS: BED, CHAIR, WHEELCHAIR - STEP 1: Does the patient require assistance with bed, chair, or wheelchair transfers? Yes. TRANSFERS: BED, CHAIR, WHEELCHAIR - STEP 2: Does the patient require the assistance of a helper? Yes. TRANSFERS: BED, CHAIR, WHEELCHAIR - STEP 3: How much assistance does the patient require from the helper? Only supervision TRANSFERS: BED, CHAIR, WHEELCHAIR - SCORE: 5-SUP TRANSFERS: TOILET: Activity did not occur on this shift TRANSFERS: TOILET - SCORE: 0-UNK TRANSFERS: SHOWER: Activity did not occur on this shift TRANSFERS: SHOWER - SCORE: 0-UNK TRANSFERS: TUB: Activity did not occur on this shift TRANSFERS: TUB - SCORE: 0-UNK LOCOMOTION: WALK: LOCOMOTION: WALK - STEP 1: Does the patient need help to walk 150 feet? Yes. LOCOMOTION: WALK - STEP 2: How much assistance does the patient require to walk a minimum of 150 feet? Patient walks less than 1 50 feet - but more than 50 feet - with the assistance of only one helper LOCOMOTION: WALK - SCORE: 2-MAX LOCOMOTION: WHEELCHAIR: LOCOMOTION: WHEELCHAIR - STEP 1: Does the patient need help to go 150 feet in a wheelchair? Yes. LOCOMOTION: WHEELCHAIR - STEP 2: How much assistance does the patient need from the helper? Only supervision, cuing, or coaxing LOCOMOTION: WHEELCHAIR - SCORE: 5-SUP LOCOMOTION: STAIRS: Activity did not occur on this shift LOCOMOTION: STAIRS - SCORE: 0-UNK COMPREHENSION: COMPREHENSION - SCORE: 0-UNK EXPRESSION EXPRESSION - SCORE: 0-UNK SOCIAL INTERACTION: SOCIAL INTERACTION - SCORE: 0-UNK PROBLEM SOLVING: PROBLEM SOLVING - SCORE: 0-UNK MEMORY: MEMORY - SCORE: 0-UNK SIGNATURE PANEL: The following modified sections: Transfers: Bed, Chair, Wheelchair - Score, Transfers: Toilet - Score , Locomotion: Walk - Score, Locomotion: Wheelchair - Score, Locomotion: Stairs - Score were [electron [email or web address]] signed by Maurisio Estrella PTA on ThuMar 05 2018 15:43:24 GMT-0500 (Central Daylight Time)
[2018-03-05] MEDS: ENOXAPARIN 40 MG/0.4 ML SQ SCH (17:35)
[2018-03-05] MEDS: ATORVASTATIN 80 MG TAB PO SCH (20:31)
[2018-03-05] MEDS: DOCUSATE NA/SENNA CONC 1 TAB PO SCH (20:31)
[2018-03-06] MEDS: TRAMADOL HCL 50 MG TAB PO PRN ×4 (03:03→20:18)
[2018-03-06] MEDS: ASPIRIN EC 81 MG TAB PO SCH (07:30)
[2018-03-06] MEDS: CLOPIDOGREL 75 MG TABLET PO SCH (07:30)
[2018-03-06] MEDS: LIDOCAINE 5% PATCH TOP SCH (07:31)
[2018-03-06] MEDS: VALSARTAN 160 MG TAB PO SCH ×2 (08:00→20:00)
[2018-03-06] MEDS: ENOXAPARIN 40 MG/0.4 ML SQ SCH (16:15)
[2018-03-06] MEDS: ATORVASTATIN 80 MG TAB PO SCH (20:18)
[2018-03-06] MEDS: DOCUSATE NA/SENNA CONC 1 TAB PO SCH (20:20)
--- NOTE | 2018-03-07 02:41 | FAST ---
SHIFT START DATE/TIME: 03/06/2018 19:00 (CDT) SHIFT END DATE/TIME: 03/07/2018 07:00 (CDT) NAME JAIRO GERMAIN DATE OF : 1955 DATE OF ADMISSION: 02/24/2018 23:45 (CDT) PHONE: AGE: 62 [facility]# [id number] GENDER: Male ENCOUNTER PHYSICIAN: Dr. Edilson Fritz M.D. ADMISSION DIAGNOSIS: - Stroke 01 - Left Body (Right Brain) (01.1) Sub acute basal ganglia infarct. EATING: Activity did not occur on this shift EATING - SCORE: 0-UNK GROOMING: Activity did not occur on this shift GROOMING - SCORE: 0-UNK BATHING: Activity did not occur on this shift BATHING - SCORE: 0-UNK DRESSING - UPPER BODY: Patient is not dressing in public clothing ARTICLES SCORE Total number of steps: 0 DRESSING - UPPER BODY - SCORE: 0-UNK DRESSING - LOWER BODY: Patient is not dressing in public clothing ARTICLES SCORE Total number of steps: 0 DRESSING - LOWER BODY - SCORE: 0-UNK TOILETING: TOILETING - STEP 1: Does the patient require assistance with toileting? Yes. TOILETING - STEP 2: Does the patient require the assistance of a helper? Yes. TOILETING - STEP 3: How much assistance does the patient require from the helper? Only supervision TOILETING - SCORE: 5-SUP BLADDER MANAGEMENT: BLADDER MANAGEMENT - STEP 1: Does the patient control the bladder completely and intentionally without equipment or devices or med ications, and is always continent? No. BLADDER MANAGEMENT - STEP 2: Does the patient require the assistance of a helper? Yes. BLADDER MANAGEMENT - STEP 3: How much assistance does the patient require from the helper? Only set-up of equipment - such as plac ing it within reach of the patient or emptying a device - to maintain either satisfactory voiding pat tern or managing an external device, such as an absorbent pad, ileal device, or catheter BLADDER MANAGEMENT - SCORE: 5-SUP BOWEL MANAGEMENT: Activity did not occur on this shift BOWEL MANAGEMENT - SCORE: 7-IND TRANSFERS: BED, CHAIR, WHEELCHAIR: Activity did not occur on this shift TRANSFERS: BED, CHAIR, WHEELCHAIR - SCORE: 0-UNK TRANSFERS: TOILET: Activity did not occur on this shift TRANSFERS: TOILET - SCORE: 0-UNK TRANSFERS: SHOWER: Activity did not occur on this shift TRANSFERS: SHOWER - SCORE: 0-UNK TRANSFERS: TUB: Activity did not occur on this shift TRANSFERS: TUB - SCORE: 0-UNK LOCOMOTION: WALK: Activity did not occur on this shift LOCOMOTION: WALK - SCORE: 0-UNK LOCOMOTION: WHEELCHAIR: Activity did not occur on this shift LOCOMOTION: WHEELCHAIR - SCORE: 0-UNK COMPREHENSION: COMPREHENSION - STEP 1: Does the patient require help to understand complex and abstract ideas (such as current events, finan gino, discharge planning, medical issues, relationships, etc)? No. COMPREHENSION - STEP 2: Does the patient need extra time, require an assistive device (such as glasses, hearing aids, or an a ugmentative communication system), OR does s/he have mild difficulty expressing complex and abstract ideas (including mild dysarthria or mild word-finding problems)? Yes. COMPREHENSION - SCORE: 6-CLAUDIO EXPRESSION EXPRESSION - STEP 1: Does the patient require help expressing complex and abstract ideas (such as current events, finances , discharge planning, medical issues, relationships, etc)? No. EXPRESSION - STEP 2: Does the patient need extra time, require an assistive device (such as augmentive communication syste m or a communication board), OR does s/he have mild difficulty expressing complex and abstract ideas (including mild dysarthria or mild word-find problems)? No. EXPRESSION - SCORE: 7-IND SOCIAL INTERACTION: SOCIAL INTERACTION - STEP 1: Does the patient require a helper to interact with others in social and therapeutic situations? No. SOCIAL INTERACTION - STEP 2: Does the patient need extra time in social situations, OR does s/he interact with staff, other patien ts, and family members ONLY in structured environments, OR does s/he require medication for social in teraction? No. SOCIAL INTERACTION - SCORE: 7-IND PROBLEM SOLVING: PROBLEM SOLVING - STEP 1: Does the patient need help to solve complex problems such as managing a checking account or confronti ng interpersonal problems? No. PROBLEM SOLVING - STEP 2: Does the patient require extra time to make decisions or solve problems, OR does s/he have slight dif ficulty reading, initiating, or self-correcting in unfamiliar situations? Yes, patient needs extra ti me. PROBLEM SOLVING - SCORE: 6-CLAUDIO MEMORY: MEMORY - STEP 1: Does the patient need help to remember frequently encountered people, daily routines, and executing r equests? No. MEMORY - STEP 2: Does the patient have slight difficulty recognizing frequently encountered people, daily routines, or executing requests without the need for repetition or using self-initiated or environmental cues to remember? Yes. MEMORY - SCORE: 6-CLAUDIO SIGNATURE PANEL: The following modified sections: Eating - Score, Grooming - Score, Dressing - Upper Body - Score, Chun ssing - Lower Body - Score, Toileting - Score, Bladder Management - Score, Bowel Management - Score, Transfers: Bed, Chair, Wheelchair - Score, Transfers: Toilet - Score, Transfers: Shower - Score, Mcclellan sfers: Tub - Score, Locomotion: Walk - Score, Locomotion: Wheelchair - Score, Comprehension - Score, Expression - Score, Social Interaction - Score, Problem Solving - Score, Memory - Score were [electro nically] signed by Dominga Perez CNA on ThuMar 07 2018 01:43:22 [facility]-0500 (Central Daylight Time)
[2018-03-07] MEDS: VALSARTAN 160 MG TAB PO SCH ×2 (08:00→19:40)
[2018-03-07] MEDS: ASPIRIN EC 81 MG TAB PO SCH (08:17)
[2018-03-07] MEDS: CLOPIDOGREL 75 MG TABLET PO SCH (08:18)
[2018-03-07] MEDS: LIDOCAINE 5% PATCH TOP SCH (08:18)
[2018-03-07] MEDS: TRAMADOL HCL 50 MG TAB PO PRN ×2 (11:09→19:41)
[2018-03-07] MEDS: ENOXAPARIN 40 MG/0.4 ML SQ SCH (16:10)
[2018-03-07] MEDS: DOCUSATE NA/SENNA CONC 1 TAB PO SCH (20:31)
[2018-03-07] MEDS: ATORVASTATIN 80 MG TAB PO SCH (20:31)
--- NOTE | 2018-03-08 03:02 | FAST ---
SHIFT START DATE/TIME: 03/07/2018 19:00 (CDT) SHIFT END DATE/TIME: 03/08/2018 07:00 (CDT) NAME JAIRO GERMAIN DATE OF : 1955 DATE OF ADMISSION: 02/24/2018 23:45 (CDT) PHONE: AGE: 62 [facility]# [id number] GENDER: Male ENCOUNTER PHYSICIAN: Dr. Edilson Fritz M.D. ADMISSION DIAGNOSIS: - Stroke 01 - Left Body (Right Brain) (01.1) Sub acute basal ganglia infarct. EATING: Activity did not occur on this shift EATING - SCORE: 0-UNK GROOMING: Activity did not occur on this shift GROOMING - SCORE: 0-UNK BATHING: Activity did not occur on this shift BATHING - SCORE: 0-UNK DRESSING - UPPER BODY: Patient is not dressing in public clothing ARTICLES SCORE Total number of steps: 0 DRESSING - UPPER BODY - SCORE: 0-UNK DRESSING - LOWER BODY: Patient is not dressing in public clothing ARTICLES SCORE Total number of steps: 0 DRESSING - LOWER BODY - SCORE: 0-UNK TOILETING: TOILETING - STEP 1: Does the patient require assistance with toileting? Yes. TOILETING - STEP 2: Does the patient require the assistance of a helper? Yes. TOILETING - STEP 3: How much assistance does the patient require from the helper? Only supervision TOILETING - SCORE: 5-SUP BLADDER MANAGEMENT: BLADDER MANAGEMENT - STEP 1: Does the patient control the bladder completely and intentionally without equipment or devices or med ications, and is always continent? No. BLADDER MANAGEMENT - STEP 2: Does the patient require the assistance of a helper? Yes. BLADDER MANAGEMENT - STEP 3: How much assistance does the patient require from the helper? Only set-up of equipment - such as plac ing it within reach of the patient or emptying a device - to maintain either satisfactory voiding pat tern or managing an external device, such as an absorbent pad, ileal device, or catheter BLADDER MANAGEMENT - SCORE: 5-SUP BOWEL MANAGEMENT: Activity did not occur on this shift BOWEL MANAGEMENT - SCORE: 7-IND TRANSFERS: BED, CHAIR, WHEELCHAIR: Activity did not occur on this shift TRANSFERS: BED, CHAIR, WHEELCHAIR - SCORE: 0-UNK TRANSFERS: TOILET: Activity did not occur on this shift TRANSFERS: TOILET - SCORE: 0-UNK TRANSFERS: SHOWER: Activity did not occur on this shift TRANSFERS: SHOWER - SCORE: 0-UNK TRANSFERS: TUB: Activity did not occur on this shift TRANSFERS: TUB - SCORE: 0-UNK LOCOMOTION: WALK: Activity did not occur on this shift LOCOMOTION: WALK - SCORE: 0-UNK LOCOMOTION: WHEELCHAIR: Activity did not occur on this shift LOCOMOTION: WHEELCHAIR - SCORE: 0-UNK COMPREHENSION: COMPREHENSION - STEP 1: Does the patient require help to understand complex and abstract ideas (such as current events, finan gino, discharge planning, medical issues, relationships, etc)? No. COMPREHENSION - STEP 2: Does the patient need extra time, require an assistive device (such as glasses, hearing aids, or an a ugmentative communication system), OR does s/he have mild difficulty expressing complex and abstract ideas (including mild dysarthria or mild word-finding problems)? Yes. COMPREHENSION - SCORE: 6-CLAUDIO EXPRESSION EXPRESSION - STEP 1: Does the patient require help expressing complex and abstract ideas (such as current events, finances , discharge planning, medical issues, relationships, etc)? No. EXPRESSION - STEP 2: Does the patient need extra time, require an assistive device (such as augmentive communication syste m or a communication board), OR does s/he have mild difficulty expressing complex and abstract ideas (including mild dysarthria or mild word-find problems)? No. EXPRESSION - SCORE: 7-IND SOCIAL INTERACTION: SOCIAL INTERACTION - STEP 1: Does the patient require a helper to interact with others in social and therapeutic situations? No. SOCIAL INTERACTION - STEP 2: Does the patient need extra time in social situations, OR does s/he interact with staff, other patien ts, and family members ONLY in structured environments, OR does s/he require medication for social in teraction? No. SOCIAL INTERACTION - SCORE: 7-IND PROBLEM SOLVING: PROBLEM SOLVING - STEP 1: Does the patient need help to solve complex problems such as managing a checking account or confronti ng interpersonal problems? No. PROBLEM SOLVING - STEP 2: Does the patient require extra time to make decisions or solve problems, OR does s/he have slight dif ficulty reading, initiating, or self-correcting in unfamiliar situations? Yes, patient needs extra ti me. PROBLEM SOLVING - SCORE: 6-CLAUDIO MEMORY: MEMORY - STEP 1: Does the patient need help to remember frequently encountered people, daily routines, and executing r equests? No. MEMORY - STEP 2: Does the patient have slight difficulty recognizing frequently encountered people, daily routines, or executing requests without the need for repetition or using self-initiated or environmental cues to remember? Yes. MEMORY - SCORE: 6-CLAUDIO SIGNATURE PANEL: The following modified sections: Eating - Score, Grooming - Score, Dressing - Upper Body - Score, Chun ssing - Lower Body - Score, Toileting - Score, Bladder Management - Score, Bowel Management - Score, Transfers: Bed, Chair, Wheelchair - Score, Transfers: Toilet - Score, Transfers: Shower - Score, Mcclellan sfers: Tub - Score, Locomotion: Walk - Score, Locomotion: Wheelchair - Score, Comprehension - Score, Expression - Score, Social Interaction - Score, Problem Solving - Score, Memory - Score were [electro nically] signed by Dominga Perez CNA on ThuMar 08 2018 02:03:20 GMT-0500 (Central Daylight Time)
[2018-03-08] MEDS: TRAMADOL HCL 50 MG TAB PO PRN ×4 (04:01→18:39)
[2018-03-08] MEDS: VALSARTAN 160 MG TAB PO SCH ×2 (08:00→20:03)
[2018-03-08] MEDS: CLOPIDOGREL 75 MG TABLET PO SCH (08:05)
[2018-03-08] MEDS: LIDOCAINE 5% PATCH TOP SCH (08:05)
[2018-03-08] MEDS: ASPIRIN EC 81 MG TAB PO SCH (08:05)
--- NOTE | 2018-03-08 10:16 | FAST ---
SHIFT START DATE/TIME: 03/08/2018 07:00 (CDT) SHIFT END DATE/TIME: 03/08/2018 19:00 (CDT) NAME JAIRO GERMAIN DATE OF : 1955 DATE OF ADMISSION: 02/24/2018 23:45 (CDT) PHONE: AGE: 62 [facility]# [phone] GENDER: Male ENCOUNTER PHYSICIAN: Dr. Edilson Fritz M.D. ADMISSION DIAGNOSIS: - Stroke 01 - Left Body (Right Brain) (01.1) Sub acute basal ganglia infarct. EATING: EATING - STEP 1: Does the patient require assistance when eating? Yes. EATING - STEP 2: Does the patient require the assistance of a helper? Yes. EATING - STEP 3: Does the patient perform half or more of the eating tasks? Yes. EATING - STEP 4: Does the patient need only supervision, cuing, coaxing OR help to apply an orthosis OR help to cut fo od, open containers, pour liquids, or butter bread? Yes. EATING - SCORE: 5-SUP GROOMING: Comb/brush hair Oral care Wash, rinse, and dry face Wash, rinse, and dry hands GROOMING - STEP 1: Does the patient require assistance when grooming? Yes. GROOMING - STEP 2: Does the patient require the assistance of a helper? No. The patient only requires an assistive devic e, OR takes more than reasonable time to groom, OR there is a concern for safety as the patient groom s GROOMING - SCORE: 6-CLAUDIO BATHING: Activity did not occur on this shift BATHING - SCORE: 0-UNK DRESSING - UPPER BODY: Activity did not occur on this shift ARTICLES SCORE Total number of steps: 0 DRESSING - UPPER BODY - SCORE: 0-UNK DRESSING - LOWER BODY: Activity did not occur on this shift ARTICLES SCORE Total number of steps: 0 DRESSING - LOWER BODY - SCORE: 0-UNK TOILETING: TOILETING - STEP 1: Does the patient require assistance with toileting? Yes. TOILETING - STEP 2: Does the patient require the assistance of a helper? Yes. TOILETING - STEP 3: How much assistance does the patient require from the helper? Hands-on assistance from the helper TOILETING - STEP 4: Of the 3 tasks: 1) Adjusting clothing prior to use, 2) Cleansing of perineal area, 3) Adjusting clot bernard after use; How many tasks does the patient perform WITHOUT assistance of the helper? Three tasks with steadying assistance from the helper TOILETING - SCORE: 4-MIN BLADDER MANAGEMENT: BLADDER MANAGEMENT - STEP 1: Does the patient control the bladder completely and intentionally without equipment or devices or med ications, and is always continent? No. BLADDER MANAGEMENT - STEP 2: Does the patient require the assistance of a helper? No, patient requires and independently uses an a ssistive device, such as a urinal, bedpan, bedside commode, catheter, absorbent pad, or collecting de vice BLADDER MANAGEMENT - SCORE: 6-CLAUDIO BOWEL MANAGEMENT: BOWEL MANAGEMENT - STEP 1: Does the patient control bowels completely and intentionally without equipment devices or medications AND is always continent? No. BOWEL MANAGEMENT - STEP 2: Does the patient require the assistance of a helper? No, patient requires and manages independently a n assistive device such as a bedpan, bedside commode, absorbent pad, incontinent device, or collectin g device BOWEL MANAGEMENT - SCORE: 6-CLAUDIO TRANSFERS: BED, CHAIR, WHEELCHAIR: TRANSFERS: BED, CHAIR, WHEELCHAIR - STEP 1: Does the patient require assistance with bed, chair, or wheelchair transfers? Yes. TRANSFERS: BED, CHAIR, WHEELCHAIR - STEP 2: Does the patient require the assistance of a helper? Yes. TRANSFERS: BED, CHAIR, WHEELCHAIR - STEP 3: How much assistance does the patient require from the helper? Steadying/guiding assistance TRANSFERS: BED, CHAIR, WHEELCHAIR - SCORE: 4-MIN TRANSFERS: TOILET: TRANSFERS: TOILET - STEP 1: Does the patient require assistance with toilet transfers? Yes. TRANSFERS: TOILET - STEP 2: Does the patient require the assistance of a helper? Yes. TRANSFERS: TOILET - STEP 3: How much assistance does the patient require from the helper? Patient performs half or more of the tr ansferring tasks TRANSFERS: TOILET - STEP 4: Does the patient need only incidental help such as contact guard or steadying during toilet transfer? Yes. TRANSFERS: TOILET - SCORE: 4-MIN TRANSFERS: SHOWER: Activity did not occur on this shift TRANSFERS: SHOWER - SCORE: 0-UNK TRANSFERS: TUB: Activity did not occur on this shift TRANSFERS: TUB - SCORE: 0-UNK LOCOMOTION: WALK: Activity did not occur on this shift LOCOMOTION: WALK - SCORE: 0-UNK LOCOMOTION: WHEELCHAIR: Activity did not occur on this shift LOCOMOTION: WHEELCHAIR - SCORE: 0-UNK COMPREHENSION: COMPREHENSION - SCORE: 0-UNK EXPRESSION EXPRESSION - SCORE: 0-UNK SOCIAL INTERACTION: SOCIAL INTERACTION - SCORE: 0-UNK PROBLEM SOLVING: PROBLEM SOLVING - SCORE: 0-UNK MEMORY: MEMORY - SCORE: 0-UNK SIGNATURE PANEL: The following modified sections: Eating - Score, Grooming - Score, Bathing - Score, Dressing - Upper Body - Score, Dressing - Lower Body - Score, Toileting - Score, Bladder Management - Score, Bowel Man agement - Score, Transfers: Bed, Chair, Wheelchair - Score, Transfers: Toilet - Score, Transfers: Luz Maria wer - Score, Transfers: Tub - Score, Locomotion: Walk - Score, Locomotion: Wheelchair - Score, Compre hension - Score, Expression - Score, Social Interaction - Score, Problem Solving - Score, Memory - Sc ore were [electronically] signed by Sonu Reece on ThuMar 08 2018 09:17:56 GMT-0500 (Central Daylight Time)
[2018-03-08] MEDS: NAPROXEN 250 MG TAB PO PRN (13:39)
--- NOTE | 2018-03-08 15:51 | FAST ---
ENCOUNTER DATE AND TIME: 03/08/2018 08:00 (CDT) NAME JAIRO GERMAIN DATE OF : 1955 DATE OF ADMISSION: 02/24/2018 23:45 (CDT) PHONE: AGE: 62 [facility]# [phone] GENDER: Male ENCOUNTER PHYSICIAN: Dr. Edilson Fritz M.D. ADMISSION DIAGNOSIS: - Stroke 01 - Left Body (Right Brain) (01.1) Sub acute basal ganglia infarct. EATING: Activity did not occur on this shift EATING - SCORE: 0-UNK GROOMING: Comb/brush hair Wash, rinse, and dry face Wash, rinse, and dry hands GROOMING - STEP 1: Does the patient require assistance when grooming? No. GROOMING - SCORE: 7-IND BATHING: Abdomen Buttocks Chest Left arm Left lower leg and foot Left upper leg Perineal area Right arm Right lower leg and foot Right upper leg BATHING - STEP 1: Does the patient require assistance when bathing? Yes. BATHING - STEP 2: Does the patient require the assistance of a helper? Yes. BATHING - STEP 3: How much assistance does the patient require from the helper? Only incidental help such as placement of a wash cloth in his/her hand a few times as s/he bathes OR help to bathe just one or two areas of the body BATHING - SCORE: 4-MIN DRESSING - UPPER BODY: T-shirt/pullover shirt (four steps) ARTICLES SCORE Total number of steps: 4 DRESSING - UPPER BODY - STEP 1: Does the patient require help when dressing above the waist? Yes. DRESSING - UPPER BODY - STEP 2: Does the patient require the assistance of a helper? Yes. DRESSING - UPPER BODY - STEP 3: Does the helper touch the patient while dressing? No. DRESSING - UPPER BODY - SCORE: 5-SUP DRESSING - LOWER BODY: Sock - Left foot (one step) Sock - Right foot (one step) Underwear (three steps) Zippered pants (four steps) ARTICLES SCORE Total number of steps: 9 DRESSING - LOWER BODY - STEP 1: Does the patient require help when dressing below the waist? Yes. DRESSING - LOWER BODY - STEP 2: Does the patient require the assistance of a helper? Yes. DRESSING - LOWER BODY - STEP 3: Does the helper touch the patient while dressing? Yes. DRESSING - LOWER BODY - STEP 4: How many of the total steps does the patient complete on his/her own? 9 DRESSING - LOWER BODY - SCORE: 4-MIN TOILETING: Activity did not occur on this shift TOILETING - SCORE: 0-UNK BLADDER MANAGEMENT: Activity did not occur on this shift BLADDER MANAGEMENT - SCORE: 7-IND BOWEL MANAGEMENT: Activity did not occur on this shift BOWEL MANAGEMENT - SCORE: 7-IND TRANSFERS: BED, CHAIR, WHEELCHAIR: Activity did not occur on this shift TRANSFERS: BED, CHAIR, WHEELCHAIR - SCORE: 0-UNK TRANSFERS: TOILET: Activity did not occur on this shift TRANSFERS: TOILET - SCORE: 0-UNK TRANSFERS: SHOWER: TRANSFERS: SHOWER - STEP 1: Does the patient require assistance with shower transfers? Yes. TRANSFERS: SHOWER - STEP 2: Does the patient require the assistance of a helper? Yes. TRANSFERS: SHOWER - STEP 3: How much assistance does the patient require from the helper? Only incidental help such as contact gu arding or steadying during shower transfers, or help to lift one leg into the shower TRANSFERS: SHOWER - SCORE: 4-MIN TRANSFERS: TUB: Activity did not occur on this shift TRANSFERS: TUB - SCORE: 0-UNK LOCOMOTION: WALK: Activity did not occur on this shift LOCOMOTION: WALK - SCORE: 0-UNK LOCOMOTION: WHEELCHAIR: Activity did not occur on this shift LOCOMOTION: WHEELCHAIR - SCORE: 0-UNK LOCOMOTION: STAIRS: Activity did not occur on this shift LOCOMOTION: STAIRS - SCORE: 0-UNK COMPREHENSION: COMPREHENSION - STEP 1: Does the patient require help to understand complex and abstract ideas (such as current events, finan gino, discharge planning, medical issues, relationships, etc)? Yes. COMPREHENSION - STEP 2: Does the patient require help to understand questions or statements about basic needs or ideas (such as hunger, thirst, sleep, safety, daily schedule, room location, or discomfort) half or more of the t bren? No. COMPREHENSION - STEP 3: How often does the patient need help to understand directions and conversation about basic needs? 10% - 24% of the time COMPREHENSION - SCORE: 4-MIN EXPRESSION EXPRESSION - STEP 1: Does the patient require help expressing complex and abstract ideas (such as current events, finances , discharge planning, medical issues, relationships, etc)? Yes. EXPRESSION - STEP 2: Does the patient require help to express basic necessities or ideas (such as hunger, thirst, sleep, s afety, daily schedule, room location, or discomfort) half or more of the time? No. EXPRESSION - STEP 3: How often does the patient need help to express directions and conversation about basic needs? Less t gipson 10% of the time EXPRESSION - SCORE: 5-SUP SOCIAL INTERACTION: SOCIAL INTERACTION - STEP 1: Does the patient require a helper to interact with others in social and therapeutic situations? Yes. SOCIAL INTERACTION - STEP 2: Does the patient interact appropriately half or more of the time? Yes. SOCIAL INTERACTION - STEP 3: How often does the patient need help to interact appropriately? Less than 10% of the time SOCIAL INTERACTION - SCORE: 5-SUP PROBLEM SOLVING: PROBLEM SOLVING - STEP 1: Does the patient need help to solve complex problems such as managing a checking account or confronti ng interpersonal problems? Yes. PROBLEM SOLVING - STEP 2: Does the patient solve basic routine problems half or more of the time? Yes. PROBLEM SOLVING - STEP 3: How often does the patient need help to solve basic routine problems? 10%-24% of the time PROBLEM SOLVING - SCORE: 4-MIN MEMORY: MEMORY - STEP 1: Does the patient need help to remember frequently encountered people, daily routines, and executing r equests? Yes. MEMORY - STEP 2: How often does the patient need help to remember frequently encountered people, daily routines, and e xecuting requests? 10% - 24% of the time MEMORY - SCORE: 4-MIN SIGNATURE PANEL: The following modified sections: Eating - Score, Grooming - Score, Bathing - Score, Dressing - Upper Body - Score, Dressing - Lower Body - Score, Toileting - Score, Transfers: Bed, Chair, Wheelchair - S core, Transfers: Toilet - Score, Transfers: Shower - Score, Transfers: Tub - Score, Comprehension - S core, Expression - Score, Social Interaction - Score, Problem Solving - Score, Memory - Score were [e lectronically] signed by Brianda Lowry OT on ThuMar 08 2018 14:52:57 T-0500 ([place] Da ylight Time)
[2018-03-08] MEDS: ENOXAPARIN 40 MG/0.4 ML SQ SCH (16:51)
--- NOTE | 2018-03-08 18:26 | R.PN ---
ENCOUNTER DATE AND TIME: 03/08/2018 17:26 (CDT) NAME JAIRO GERMAIN DATE OF : 1955 DATE OF ADMISSION: 02/24/2018 23:45 (CDT) Sub acute basal ganglia infarctCHIEF COMPLAINT: Basal ganglia stroke SUBJECTIVE: Pt denied any Shortness of Breath. Pt denied any depression. Bed mobility was done with standby assistance. Ambulated 350' with standby assistance using a sarah g walker. Self-propelled wheelchair 250' with standby assistance with a rolling walker. VITAL SIGNS Temperature: 97.2 F SBP/DBP: 109/70 Pulse: 59 Resp: 14 MEDICATION ALLERGIES: No Known Drug Allergies (NKDA) ENVIRONMENTAL ALLERGIES: None Known - Substance Allergies None Known - Other Allergies None Known NURSING: - Shower allowing shower - Bladder care per protocol - Skin care per protocol PRECAUTIONS: - Fall Precaution Bed alarm TABS alarm Wheel chair alarm Critical cord compression c-spine ACTIVITIES OOB only with supervision THERAPIES: - Occupational Therapy Evaluate and Treat. Cognitive Retraining. Visual Perceptual Training. - Speech Therapy Cognitive Training. Memory Strategies. Expressive Language Skills. Receptive Language Skills. Speech Intelligibility Training. - Physical Therapy Evaluate and Treat. PHYSICAL EXAM - Gen Alert and awake Lying in bed No apparent distress Oriented to: person, time, and place - Skin No skin breakdown. Normacephalic - Eyes No abnormalities - ENMT No abnormalities - Neck No abnormalities - CVS RRR - Chest Clear - Abd Soft - GI nondistended Deferred - No abnormalities - Ext No significant edema - MSK 4+/5 weakness in left upper and lower extremity - Neuro 4/5 strength left upper and lower extremities. - Psych No abnormalities ASSESSMENT: Pt. is a 62 yo Right-handed white male.On 02/19/2018 Pt. presented to [facility] with sudden onset of left-side weakness.On 02/19/2018 he was admitted to [facility] with diagnosis Sub acute basal ganglia infarct.His impairment category is Stroke 01 - Left Emir dy (Right Brain) (01.1).Pre-morbidly, Pt. was independent/mod-I in Transfers Control, Communication, Social Cognition, Self-Care, Locomotion, and Sphincter Control; and he had good Sphincter Control.Cur rently, he has deficits of Transfers Control, Balance, Self-Care, Locomotion, Endurance, and Safety A wareness.Pt. is now referred to [facility] for acute in-patient rehabilitation in order to maximize patient's functional independence in activities of daily living, strength, ROM, and mobility.- Rehab Goal Patient has realistic goal of being discharged at assistance level 6-Nate to reside at Home with Fam evelyne/Relatives. MDM/PLAN: - Diet Type Continue Heart healthy for Dementia, TBI, Stroke, or others - Physical Therapy Gait dysfunction - to improve, our physical therapists will perform initial evaluation of pt's statu s upon admission and devise an individualized program for Gait Training, and Wheel Chair mobility Inability to transfer - to improve, our physical therapists will perform initial evaluation of pt's status upon admission and devise an individualized program for Bed mobility Need for home safety evaluation - to improve, our physical therapists will perform initial evaluatio n of pt's status upon admission and devise an individualized program for Home Evaluation Need in caregiver upon discharge - to improve, our physical therapists will perform initial evaluati on of pt's status upon admission and devise an individualized program for Caregiver Training New precaution - to improve, our physical therapists will perform initial evaluation of pt's status upon admission and devise an individualized program for Patient precaution education Edema - to improve, our physical therapists will perform initial evaluation of pt's status upon admi ssion and devise an individualized program for Elevation Training, and Lymphedema Therapy Pain - to improve, our physical therapists will perform initial evaluation of pt's status upon admis mason and devise an individualized program for Modalities Poor balance - to improve, our physical therapists will perform initial evaluation of pt's status up on admission and devise an individualized program for Balance Training Poor endurance - to improve, our physical therapists will perform initial evaluation of pt's status upon admission and devise an individualized program for Endurance Training Weakness - to improve, our physical therapists will perform initial evaluation of pt's status upon a dmission and devise an individualized program for Aquatic Therapy, Neuromuscular Reeducation, and Str engthening Achieving independence - to improve, our physical therapists will perform initial evaluation of pt's status upon admission and devise an individualized program for Community Reintegration Activities - Diet - Liquid Texture Continue Regular - Tube Feed Continue N/A - Bladder care per protocol - Weight Bearing Precaution WBAT left LE - Fall Precaution Bed alarm TABS alarm Wheel chair alarm Critical cord compression c-spine - Skin care per protocol - Diet - Solid Texture Continue Regular - Shower allowing shower - Occupational Therapy ADL deficits - to improve, our occupation therapists will perform initial evaluation of pt's status upon admission and devise an individualized program for Bathing, Bed mobility, Community Reintegratio n, Cooking, Dressing, Eating, Fine Motor Skills, Grooming, Homemaking, Kitchen Mobility, Laundry, Pat ient Education, Safety Awareness, Splinting - Positioning, Transfers(Toilet, Tub, Shower), and Wheel Chair Management Need for acute care assistant - to improve, our occupation therapists will perform initial evaluation of pt's status upon admission and devise an individualized program for Caregiver Training Weakness - to improve, our occupation therapists will perform initial evaluation of pt's status upon admission and devise an individualized program for Aquatic Therapy, Balance, Endurance, UE ROM, and UE strengthening FUNCTIONAL STATUS: UPDATED AT WEEKLY TEAM CONFERENCE - Bladder Same accident frequency: 7-Ind - No accidents in the past 7 days - Bowel Same accident frequency: 7-Ind - No accidents in the past 7 days - Walking Same score based on distance walked: 3(>=150ft) - Wheelchair Same score based on distance traveled: 0(N/A) FUNCTIONAL STATUS: - Self-Care A. Eating sup B. Grooming sup C. Bathing sup D. Dressing - Upper sup E. Dressing - Lower sup F. Toileting Na - Sphincter Control G: Bladder control Ind H: Bowel control Ind - Transfers Control I. Bed/Chair/Wheelchair Na J. Toilet Na K. Tub/Shower ADNO - Locomotion L. Walk/Wheelchair (B) Na M. Stairs ADNO - Communication N. Comprehension (B) Nate O. Expression (B) Nate - Social Cognition P. Social Interaction Nate Q. Problem Solving Nate R. Memory Nate - Endurance Fair - Balance Poor - Safety Awareness Fair [facility] DEFICITS: Transfers Control, Balance, Self-Care, Locomotion, Endurance, and Safety Awareness SIGNATURE PANEL: (CDT)
[2018-03-08] MEDS: DOCUSATE NA/SENNA CONC 1 TAB PO SCH (20:02)
[2018-03-08] MEDS: ATORVASTATIN 80 MG TAB PO SCH (20:03)
[2018-03-09] MEDS: TRAMADOL HCL 50 MG TAB PO PRN ×3 (05:39→20:03)
[2018-03-09] MEDS: LIDOCAINE 5% PATCH TOP SCH (07:11)
[2018-03-09] MEDS: VALSARTAN 160 MG TAB PO SCH ×2 (08:05→20:02)
[2018-03-09] MEDS: NAPROXEN 250 MG TAB PO PRN (08:05)
[2018-03-09] MEDS: ASPIRIN EC 81 MG TAB PO SCH (08:06)
[2018-03-09] MEDS: CLOPIDOGREL 75 MG TABLET PO SCH (08:07)
[2018-03-09] MEDS: ENOXAPARIN 40 MG/0.4 ML SQ SCH (16:35)
--- NOTE | 2018-03-09 18:46 | R.PN ---
ENCOUNTER DATE AND TIME: 03/09/2018 17:43 (CDT) NAME JAIRO GERMAIN DATE OF : 1955 DATE OF ADMISSION: 02/24/2018 23:45 (CDT) Sub acute basal ganglia infarctCHIEF COMPLAINT: Basal ganglia stroke SUBJECTIVE: Pt denied any Shortness of Breath. Pt denied any depression. Bed mobility was done with standby assistance. Ambulated 390' with standby assistance using a sarah g walker. Self-propelled wheelchair 250' with standby assistance with a rolling walker. VITAL SIGNS Temperature: 97.2 F SBP/DBP: 139/70 Pulse: 53 Resp: 14 MEDICATION ALLERGIES: No Known Drug Allergies (NKDA) ENVIRONMENTAL ALLERGIES: None Known - Substance Allergies None Known - Other Allergies None Known NURSING: - Shower allowing shower - Bladder care per protocol - Skin care per protocol PRECAUTIONS: - Fall Precaution Bed alarm TABS alarm Wheel chair alarm Critical cord compression c-spine ACTIVITIES OOB only with supervision THERAPIES: - Occupational Therapy Evaluate and Treat. Cognitive Retraining. Visual Perceptual Training. - Speech Therapy Cognitive Training. Memory Strategies. Expressive Language Skills. Receptive Language Skills. Speech Intelligibility Training. - Physical Therapy Evaluate and Treat. PHYSICAL EXAM - Gen Alert and awake Lying in bed No apparent distress Oriented to: person, time, and place - Skin No skin breakdown. Normacephalic - Eyes No abnormalities - ENMT No abnormalities - Neck No abnormalities - CVS RRR - Chest Clear - Abd Soft - GI nondistended Deferred - No abnormalities - Ext No significant edema - MSK 4+/5 weakness in left upper and lower extremity - Neuro 4/5 strength left upper and lower extremities. - Psych No abnormalities ASSESSMENT: Pt. is a 62 yo Right-handed white male.On 02/19/2018 Pt. presented to [facility] with sudden onset of left-side weakness.On 02/19/2018 he was admitted to [facility] with diagnosis Sub acute basal ganglia infarct.His impairment category is Stroke 01 - Left Emir dy (Right Brain) (01.1).Pre-morbidly, Pt. was independent/mod-I in Transfers Control, Communication, Social Cognition, Self-Care, Locomotion, and Sphincter Control; and he had good Sphincter Control.Cur rently, he has deficits of Transfers Control, Balance, Self-Care, Locomotion, Endurance, and Safety A wareness.Pt. is now referred to [facility] for acute in-patient rehabilitation in order to maximize patient's functional independence in activities of daily living, strength, ROM, and mobility.- Rehab Goal Patient has realistic goal of being discharged at assistance level 6-Nate to reside at Home with Fam evelyne/Relatives. MDM/PLAN: - Diet Type Continue Heart healthy for Dementia, TBI, Stroke, or others - Physical Therapy Gait dysfunction - to improve, our physical therapists will perform initial evaluation of pt's statu s upon admission and devise an individualized program for Gait Training, and Wheel Chair mobility Inability to transfer - to improve, our physical therapists will perform initial evaluation of pt's status upon admission and devise an individualized program for Bed mobility Need for home safety evaluation - to improve, our physical therapists will perform initial evaluatio n of pt's status upon admission and devise an individualized program for Home Evaluation Need in caregiver upon discharge - to improve, our physical therapists will perform initial evaluati on of pt's status upon admission and devise an individualized program for Caregiver Training New precaution - to improve, our physical therapists will perform initial evaluation of pt's status upon admission and devise an individualized program for Patient precaution education Edema - to improve, our physical therapists will perform initial evaluation of pt's status upon admi ssion and devise an individualized program for Elevation Training, and Lymphedema Therapy Pain - to improve, our physical therapists will perform initial evaluation of pt's status upon admis mason and devise an individualized program for Modalities Poor balance - to improve, our physical therapists will perform initial evaluation of pt's status up on admission and devise an individualized program for Balance Training Poor endurance - to improve, our physical therapists will perform initial evaluation of pt's status upon admission and devise an individualized program for Endurance Training Weakness - to improve, our physical therapists will perform initial evaluation of pt's status upon a dmission and devise an individualized program for Aquatic Therapy, Neuromuscular Reeducation, and Str engthening Achieving independence - to improve, our physical therapists will perform initial evaluation of pt's status upon admission and devise an individualized program for Community Reintegration Activities - Diet - Liquid Texture Continue Regular - Tube Feed Continue N/A - Bladder care per protocol - Weight Bearing Precaution WBAT left LE - Fall Precaution Bed alarm TABS alarm Wheel chair alarm Critical cord compression c-spine - Skin care per protocol - Diet - Solid Texture Continue Regular - Shower allowing shower - Occupational Therapy ADL deficits - to improve, our occupation therapists will perform initial evaluation of pt's status upon admission and devise an individualized program for Bathing, Bed mobility, Community Reintegratio n, Cooking, Dressing, Eating, Fine Motor Skills, Grooming, Homemaking, Kitchen Mobility, Laundry, Pat ient Education, Safety Awareness, Splinting - Positioning, Transfers(Toilet, Tub, Shower), and Wheel Chair Management Need for care rep - to improve, our occupation therapists will perform initial evaluation of pt's status upon admission and devise an individualized program for Caregiver Training Weakness - to improve, our occupation therapists will perform initial evaluation of pt's status upon admission and devise an individualized program for Aquatic Therapy, Balance, Endurance, UE ROM, and UE strengthening FUNCTIONAL STATUS: UPDATED AT WEEKLY TEAM CONFERENCE - Bladder Same accident frequency: 7-Ind - No accidents in the past 7 days - Bowel Same accident frequency: 7-Ind - No accidents in the past 7 days - Walking Same score based on distance walked: 3(>=150ft) - Wheelchair Same score based on distance traveled: 0(N/A) FUNCTIONAL STATUS: - Self-Care A. Eating sup B. Grooming sup C. Bathing sup D. Dressing - Upper sup E. Dressing - Lower sup F. Toileting Na - Sphincter Control G: Bladder control Ind H: Bowel control Ind - Transfers Control I. Bed/Chair/Wheelchair Na J. Toilet Na K. Tub/Shower ADNO - Locomotion L. Walk/Wheelchair (B) Na M. Stairs ADNO - Communication N. Comprehension (B) Nate O. Expression (B) Nate - Social Cognition P. Social Interaction Nate Q. Problem Solving Nate R. Memory Nate - Endurance Fair - Balance Poor - Safety Awareness Fair [facility] DEFICITS: Transfers Control, Balance, Self-Care, Locomotion, Endurance, and Safety Awareness SIGNATURE PANEL: (CDT)
[2018-03-09] MEDS: ATORVASTATIN 80 MG TAB PO SCH (20:03)
[2018-03-09] MEDS: DOCUSATE NA/SENNA CONC 1 TAB PO SCH (20:03)
--- NOTE | 2018-03-10 04:06 | FAST ---
SHIFT START DATE/TIME: 03/09/2018 19:00 (CDT) SHIFT END DATE/TIME: 03/10/2018 07:00 (CDT) NAME JAIRO GERMAIN DATE OF : 1955 DATE OF ADMISSION: 02/24/2018 23:45 (CDT) PHONE: AGE: 62 [facility]# [phone] GENDER: Male ENCOUNTER PHYSICIAN: Dr. Edilson Fritz M.D. ADMISSION DIAGNOSIS: - Stroke 01 - Left Body (Right Brain) (01.1) Sub acute basal ganglia infarct. EATING: Activity did not occur on this shift EATING - SCORE: 0-UNK GROOMING: Activity did not occur on this shift GROOMING - SCORE: 0-UNK BATHING: Activity did not occur on this shift BATHING - SCORE: 0-UNK DRESSING - UPPER BODY: Patient is not dressing in public clothing ARTICLES SCORE Total number of steps: 0 DRESSING - UPPER BODY - SCORE: 0-UNK DRESSING - LOWER BODY: Patient is not dressing in public clothing ARTICLES SCORE Total number of steps: 0 DRESSING - LOWER BODY - SCORE: 0-UNK TOILETING: TOILETING - STEP 1: Does the patient require assistance with toileting? Yes. TOILETING - STEP 2: Does the patient require the assistance of a helper? Yes. TOILETING - STEP 3: How much assistance does the patient require from the helper? Only supervision TOILETING - SCORE: 5-SUP BLADDER MANAGEMENT: BLADDER MANAGEMENT - STEP 1: Does the patient control the bladder completely and intentionally without equipment or devices or med ications, and is always continent? No. BLADDER MANAGEMENT - STEP 2: Does the patient require the assistance of a helper? Yes. BLADDER MANAGEMENT - STEP 3: How much assistance does the patient require from the helper? Only set-up of equipment - such as plac ing it within reach of the patient or emptying a device - to maintain either satisfactory voiding pat tern or managing an external device, such as an absorbent pad, ileal device, or catheter BLADDER MANAGEMENT - SCORE: 5-SUP BOWEL MANAGEMENT: Activity did not occur on this shift BOWEL MANAGEMENT - SCORE: 7-IND TRANSFERS: BED, CHAIR, WHEELCHAIR: Activity did not occur on this shift TRANSFERS: BED, CHAIR, WHEELCHAIR - SCORE: 0-UNK TRANSFERS: TOILET: Activity did not occur on this shift TRANSFERS: TOILET - SCORE: 0-UNK TRANSFERS: SHOWER: Activity did not occur on this shift TRANSFERS: SHOWER - SCORE: 0-UNK TRANSFERS: TUB: Activity did not occur on this shift TRANSFERS: TUB - SCORE: 0-UNK LOCOMOTION: WALK: Activity did not occur on this shift LOCOMOTION: WALK - SCORE: 0-UNK LOCOMOTION: WHEELCHAIR: Activity did not occur on this shift LOCOMOTION: WHEELCHAIR - SCORE: 0-UNK COMPREHENSION: COMPREHENSION - STEP 1: Does the patient require help to understand complex and abstract ideas (such as current events, finan gino, discharge planning, medical issues, relationships, etc)? No. COMPREHENSION - STEP 2: Does the patient need extra time, require an assistive device (such as glasses, hearing aids, or an a ugmentative communication system), OR does s/he have mild difficulty expressing complex and abstract ideas (including mild dysarthria or mild word-finding problems)? Yes. COMPREHENSION - SCORE: 6-CLAUDIO EXPRESSION EXPRESSION - STEP 1: Does the patient require help expressing complex and abstract ideas (such as current events, finances , discharge planning, medical issues, relationships, etc)? No. EXPRESSION - STEP 2: Does the patient need extra time, require an assistive device (such as augmentive communication syste m or a communication board), OR does s/he have mild difficulty expressing complex and abstract ideas (including mild dysarthria or mild word-find problems)? No. EXPRESSION - SCORE: 7-IND SOCIAL INTERACTION: SOCIAL INTERACTION - STEP 1: Does the patient require a helper to interact with others in social and therapeutic situations? No. SOCIAL INTERACTION - STEP 2: Does the patient need extra time in social situations, OR does s/he interact with staff, other patien ts, and family members ONLY in structured environments, OR does s/he require medication for social in teraction? No. SOCIAL INTERACTION - SCORE: 7-IND PROBLEM SOLVING: PROBLEM SOLVING - STEP 1: Does the patient need help to solve complex problems such as managing a checking account or confronti ng interpersonal problems? No. PROBLEM SOLVING - STEP 2: Does the patient require extra time to make decisions or solve problems, OR does s/he have slight dif ficulty reading, initiating, or self-correcting in unfamiliar situations? Yes, patient needs extra ti me. PROBLEM SOLVING - SCORE: 6-CLAUDIO MEMORY: MEMORY - STEP 1: Does the patient need help to remember frequently encountered people, daily routines, and executing r equests? No. MEMORY - STEP 2: Does the patient have slight difficulty recognizing frequently encountered people, daily routines, or executing requests without the need for repetition or using self-initiated or environmental cues to remember? Yes. MEMORY - SCORE: 6-CLAUDIO SIGNATURE PANEL: The following modified sections: Eating - Score, Grooming - Score, Dressing - Upper Body - Score, Chun ssing - Lower Body - Score, Toileting - Score, Bladder Management - Score, Bowel Management - Score, Transfers: Bed, Chair, Wheelchair - Score, Transfers: Toilet - Score, Transfers: Shower - Score, Mcclellan sfers: Tub - Score, Locomotion: Walk - Score, Locomotion: Wheelchair - Score, Comprehension - Score, Expression - Score, Social Interaction - Score, Problem Solving - Score, Memory - Score were [electro nically] signed by Dominga Perez CNA on ThuMar 10 2018 03:08:19 T-0500 (Central Daylight Time)
[2018-03-10] MEDS: VALSARTAN 160 MG TAB PO SCH ×2 (08:00→20:39)
[2018-03-10] MEDS: LIDOCAINE 5% PATCH TOP SCH (08:57)
[2018-03-10] MEDS: CLOPIDOGREL 75 MG TABLET PO SCH (08:57)
[2018-03-10] MEDS: ASPIRIN EC 81 MG TAB PO SCH (08:57)
[2018-03-10] MEDS: TRAMADOL HCL 50 MG TAB PO PRN ×2 (08:57→20:40)
--- NOTE | 2018-03-10 11:59 | FAST ---
SHIFT START DATE/TIME: 03/10/2018 07:00 (CDT) SHIFT END DATE/TIME: 03/10/2018 19:00 (CDT) NAME JAIRO GERMAIN DATE OF : 1955 DATE OF ADMISSION: 02/24/2018 23:45 (CDT) PHONE: AGE: 62 [facility]# [id number] GENDER: Male ENCOUNTER PHYSICIAN: Dr. Edilson Fritz M.D. ADMISSION DIAGNOSIS: - Stroke 01 - Left Body (Right Brain) (01.1) Sub acute basal ganglia infarct. EATING: EATING - STEP 1: Does the patient require assistance when eating? Yes. EATING - STEP 2: Does the patient require the assistance of a helper? No, patient only requires an assistive device, O R s/he takes more than reasonable time to eat, OR there is a safety concern, OR s/he requires modifie d food consistency EATING - SCORE: 6-CLAUDIO GROOMING: Activity did not occur on this shift GROOMING - SCORE: 0-UNK BATHING: Activity did not occur on this shift BATHING - SCORE: 0-UNK DRESSING - UPPER BODY: Activity did not occur on this shift ARTICLES SCORE Total number of steps: 0 DRESSING - UPPER BODY - SCORE: 0-UNK DRESSING - LOWER BODY: Activity did not occur on this shift ARTICLES SCORE Total number of steps: 0 DRESSING - LOWER BODY - SCORE: 0-UNK TOILETING: TOILETING - STEP 1: Does the patient require assistance with toileting? Yes. TOILETING - STEP 2: Does the patient require the assistance of a helper? Yes. TOILETING - STEP 3: How much assistance does the patient require from the helper? Only supervision TOILETING - SCORE: 5-SUP BLADDER MANAGEMENT: BLADDER MANAGEMENT - STEP 1: Does the patient control the bladder completely and intentionally without equipment or devices or med ications, and is always continent? No. BLADDER MANAGEMENT - STEP 2: Does the patient require the assistance of a helper? No, patient requires and independently uses an a ssistive device, such as a urinal, bedpan, bedside commode, catheter, absorbent pad, or collecting de vice BLADDER MANAGEMENT - SCORE: 6-CLAUDIO BOWEL MANAGEMENT: BOWEL MANAGEMENT - STEP 1: Does the patient control bowels completely and intentionally without equipment devices or medications AND is always continent? No. BOWEL MANAGEMENT - STEP 2: Does the patient require the assistance of a helper? No, patient requires and manages independently a n assistive device such as a bedpan, bedside commode, absorbent pad, incontinent device, or collectin g device BOWEL MANAGEMENT - SCORE: 6-CLAUDIO TRANSFERS: BED, CHAIR, WHEELCHAIR: TRANSFERS: BED, CHAIR, WHEELCHAIR - STEP 1: Does the patient require assistance with bed, chair, or wheelchair transfers? Yes. TRANSFERS: BED, CHAIR, WHEELCHAIR - STEP 2: Does the patient require the assistance of a helper? Yes. TRANSFERS: BED, CHAIR, WHEELCHAIR - STEP 3: How much assistance does the patient require from the helper? Steadying/guiding assistance TRANSFERS: BED, CHAIR, WHEELCHAIR - SCORE: 4-MIN TRANSFERS: TOILET: TRANSFERS: TOILET - STEP 1: Does the patient require assistance with toilet transfers? Yes. TRANSFERS: TOILET - STEP 2: Does the patient require the assistance of a helper? Yes. TRANSFERS: TOILET - STEP 3: How much assistance does the patient require from the helper? Patient performs half or more of the tr ansferring tasks TRANSFERS: TOILET - STEP 4: Does the patient need only incidental help such as contact guard or steadying during toilet transfer? Yes. TRANSFERS: TOILET - SCORE: 4-MIN TRANSFERS: SHOWER: Activity did not occur on this shift TRANSFERS: SHOWER - SCORE: 0-UNK TRANSFERS: TUB: Activity did not occur on this shift TRANSFERS: TUB - SCORE: 0-UNK LOCOMOTION: WALK: Activity did not occur on this shift LOCOMOTION: WALK - SCORE: 0-UNK LOCOMOTION: WHEELCHAIR: Activity did not occur on this shift LOCOMOTION: WHEELCHAIR - SCORE: 0-UNK COMPREHENSION: COMPREHENSION - SCORE: 0-UNK EXPRESSION EXPRESSION - SCORE: 0-UNK SOCIAL INTERACTION: SOCIAL INTERACTION - SCORE: 0-UNK PROBLEM SOLVING: PROBLEM SOLVING - SCORE: 0-UNK MEMORY: MEMORY - SCORE: 0-UNK SIGNATURE PANEL: The following modified sections: Eating - Score, Grooming - Score, Bathing - Score, Dressing - Upper Body - Score, Dressing - Lower Body - Score, Toileting - Score, Bladder Management - Score, Bowel Man agement - Score, Transfers: Bed, Chair, Wheelchair - Score, Transfers: Toilet - Score, Transfers: Luz Maria wer - Score, Transfers: Tub - Score, Locomotion: Walk - Score, Locomotion: Wheelchair - Score, Compre hension - Score, Expression - Score, Social Interaction - Score, Problem Solving - Score, Memory - Sc ore were [electronically] signed by Sonu Reece on ThuMar 10 2018 11:00:24 GMT-0500 (Central Daylight Time)
--- NOTE | 2018-03-10 15:44 | FAST ---
ENCOUNTER DATE AND TIME: 03/10/2018 08:00 (CDT) NAME JAIRO GERMAIN DATE OF : 1955 DATE OF ADMISSION: 02/24/2018 23:45 (CDT) PHONE: AGE: 62 N# [id number] GENDER: Male ENCOUNTER PHYSICIAN: Dr. Edilson Fritz M.D. ADMISSION DIAGNOSIS: - Stroke 01 - Left Body (Right Brain) (01.1) Sub acute basal ganglia infarct. EATING: Activity did not occur on this shift EATING - SCORE: 0-UNK GROOMING: Comb/brush hair Wash, rinse, and dry face Wash, rinse, and dry hands GROOMING - STEP 1: Does the patient require assistance when grooming? No. GROOMING - SCORE: 7-IND BATHING: Abdomen Buttocks Chest Left arm Left lower leg and foot Left upper leg Perineal area Right arm Right lower leg and foot Right upper leg BATHING - STEP 1: Does the patient require assistance when bathing? Yes. BATHING - STEP 2: Does the patient require the assistance of a helper? No. The patient only requires an assistive devic e such as a bath mandie, OR the patient takes more than reasonable time to bathe, OR there is a concern for safety such as regulating water temperature as the patient bathes. BATHING - SCORE: 6-CLAUDIO DRESSING - UPPER BODY: T-shirt/pullover shirt (four steps) ARTICLES SCORE Total number of steps: 4 DRESSING - UPPER BODY - STEP 1: Does the patient require help when dressing above the waist? No. DRESSING - UPPER BODY - SCORE: 7-IND DRESSING - LOWER BODY: Slip-on shoe - Left foot (one step) Slip-on shoe - Right foot (one step) Underwear (three steps) Zippered pants (four steps) ARTICLES SCORE Total number of steps: 9 DRESSING - LOWER BODY - STEP 1: Does the patient require help when dressing below the waist? Yes. DRESSING - LOWER BODY - STEP 2: Does the patient require the assistance of a helper? No. Patient requires an assistive device such as a material reclaimer. OR s/he takes more than reasonable time as s/he dresses the lower body, OR there is a con cern for safety when s/he dresses the lower body DRESSING - LOWER BODY - SCORE: 6-CLAUDIO TOILETING: Activity did not occur on this shift TOILETING - SCORE: 0-UNK BLADDER MANAGEMENT: Activity did not occur on this shift BLADDER MANAGEMENT - SCORE: 7-IND BOWEL MANAGEMENT: Activity did not occur on this shift BOWEL MANAGEMENT - SCORE: 7-IND TRANSFERS: BED, CHAIR, WHEELCHAIR: Activity did not occur on this shift TRANSFERS: BED, CHAIR, WHEELCHAIR - SCORE: 0-UNK TRANSFERS: TOILET: Activity did not occur on this shift TRANSFERS: TOILET - SCORE: 0-UNK TRANSFERS: SHOWER: TRANSFERS: SHOWER - STEP 1: Does the patient require assistance with shower transfers? Yes. TRANSFERS: SHOWER - STEP 2: Does the patient require the assistance of a helper? No. The patient only uses an assistive device, t akes more than reasonable time, OR there is a concern for safety when s/he performs transfers. TRANSFERS: SHOWER - SCORE: 6-CLAUDIO TRANSFERS: TUB: Activity did not occur on this shift TRANSFERS: TUB - SCORE: 0-UNK LOCOMOTION: WALK: Activity did not occur on this shift LOCOMOTION: WALK - SCORE: 0-UNK LOCOMOTION: WHEELCHAIR: Activity did not occur on this shift LOCOMOTION: WHEELCHAIR - SCORE: 0-UNK LOCOMOTION: STAIRS: Activity did not occur on this shift LOCOMOTION: STAIRS - SCORE: 0-UNK COMPREHENSION: COMPREHENSION - STEP 1: Does the patient require help to understand complex and abstract ideas (such as current events, finan gino, discharge planning, medical issues, relationships, etc)? No. COMPREHENSION - STEP 2: Does the patient need extra time, require an assistive device (such as glasses, hearing aids, or an a ugmentative communication system), OR does s/he have mild difficulty expressing complex and abstract ideas (including mild dysarthria or mild word-finding problems)? No. COMPREHENSION - SCORE: 7-IND EXPRESSION EXPRESSION: TYPE: Non-Vocal EXPRESSION - STEP 1: Does the patient require help expressing complex and abstract ideas (such as current events, finances , discharge planning, medical issues, relationships, etc)? No. EXPRESSION - STEP 2: Does the patient need extra time, require an assistive device (such as augmentive communication syste m or a communication board), OR does s/he have mild difficulty expressing complex and abstract ideas (including mild dysarthria or mild word-find problems)? No. EXPRESSION - SCORE: 7-IND SOCIAL INTERACTION: SOCIAL INTERACTION - STEP 1: Does the patient require a helper to interact with others in social and therapeutic situations? No. SOCIAL INTERACTION - STEP 2: Does the patient need extra time in social situations, OR does s/he interact with staff, other patien ts, and family members ONLY in structured environments, OR does s/he require medication for social in teraction? No. SOCIAL INTERACTION - SCORE: 7-IND PROBLEM SOLVING: PROBLEM SOLVING - STEP 1: Does the patient need help to solve complex problems such as managing a checking account or confronti ng interpersonal problems? No. PROBLEM SOLVING - STEP 2: Does the patient require extra time to make decisions or solve problems, OR does s/he have slight dif ficulty reading, initiating, or self-correcting in unfamiliar situations? No. PROBLEM SOLVING - SCORE: 7-IND MEMORY: MEMORY - STEP 1: Does the patient need help to remember frequently encountered people, daily routines, and executing r equests? No. MEMORY - STEP 2: Does the patient have slight difficulty recognizing frequently encountered people, daily routines, or executing requests without the need for repetition or using self-initiated or environmental cues to remember? No. MEMORY - SCORE: 7-IND SIGNATURE PANEL: The following modified sections: Eating - Score, Grooming - Score, Bathing - Score, Dressing - Upper Body - Score, Dressing - Lower Body - Score, Toileting - Score, Transfers: Bed, Chair, Wheelchair - S core, Transfers: Toilet - Score, Transfers: Shower - Score, Transfers: Tub - Score, Comprehension - S core, Expression - Score, Social Interaction - Score, Problem Solving - Score, Memory - Score were [e lectronically] signed by IHSAN Harrison on ThuMar 10 2018 14:45:29 T-0500 (Critical access hospital Time)
[2018-03-10] MEDS: ENOXAPARIN 40 MG/0.4 ML SQ SCH (17:01)
--- NOTE | 2018-03-10 19:02 | R.PN ---
ENCOUNTER DATE AND TIME: 03/10/2018 18:01 (CDT) NAME JAIRO GERMAIN DATE OF : 1955 DATE OF ADMISSION: 02/24/2018 23:45 (CDT) Sub acute basal ganglia infarctCHIEF COMPLAINT: Basal ganglia stroke SUBJECTIVE: Pt denied any Shortness of Breath. Pt denied any depression. Bed mobility was done with standby assistance. Ambulated 390' with standby assistance using a sarah g walker. Self-propelled wheelchair 250' with standby assistance with a rolling walker. VITAL SIGNS Temperature: 97.2 F SBP/DBP: 138/75 Pulse: 54 Resp: 16 MEDICATION ALLERGIES: No Known Drug Allergies (NKDA) ENVIRONMENTAL ALLERGIES: None Known - Substance Allergies None Known - Other Allergies None Known NURSING: - Shower allowing shower - Bladder care per protocol - Skin care per protocol PRECAUTIONS: - Fall Precaution Bed alarm TABS alarm Wheel chair alarm Critical cord compression c-spine ACTIVITIES OOB only with supervision THERAPIES: - Occupational Therapy Evaluate and Treat. Cognitive Retraining. Visual Perceptual Training. - Speech Therapy Cognitive Training. Memory Strategies. Expressive Language Skills. Receptive Language Skills. Speech Intelligibility Training. - Physical Therapy Evaluate and Treat. PHYSICAL EXAM - Gen Alert and awake Lying in bed No apparent distress Oriented to: person, time, and place - Skin No skin breakdown. Normacephalic - Eyes No abnormalities - ENMT No abnormalities - Neck No abnormalities - CVS RRR - Chest Clear - Abd Soft - GI nondistended Deferred - No abnormalities - Ext No significant edema - MSK 4+/5 weakness in left upper and lower extremity - Neuro 4/5 strength left upper and lower extremities. - Psych No abnormalities ASSESSMENT: Pt. is a 62 yo Right-handed white male.On 02/19/2018 Pt. presented to [facility] with sudden onset of left-side weakness.On 02/19/2018 he was admitted to [facility] with diagnosis Sub acute basal ganglia infarct.His impairment category is Stroke 01 - Left Emir dy (Right Brain) (01.1).Pre-morbidly, Pt. was independent/mod-I in Transfers Control, Communication, Social Cognition, Self-Care, Locomotion, and Sphincter Control; and he had good Sphincter Control.Cur rently, he has deficits of Transfers Control, Balance, Self-Care, Locomotion, Endurance, and Safety A wareness.Pt. is now referred to [facility] for acute in-patient rehabilitation in order to maximize patient's functional independence in activities of daily living, strength, ROM, and mobility.- Rehab Goal Patient has realistic goal of being discharged at assistance level 6-Nate to reside at Home with Fam evelyne/Relatives. MDM/PLAN: - Diet Type Continue Heart healthy for Dementia, TBI, Stroke, or others - Physical Therapy Gait dysfunction - to improve, our physical therapists will perform initial evaluation of pt's statu s upon admission and devise an individualized program for Gait Training, and Wheel Chair mobility Inability to transfer - to improve, our physical therapists will perform initial evaluation of pt's status upon admission and devise an individualized program for Bed mobility Need for home safety evaluation - to improve, our physical therapists will perform initial evaluatio n of pt's status upon admission and devise an individualized program for Home Evaluation Need in caregiver upon discharge - to improve, our physical therapists will perform initial evaluati on of pt's status upon admission and devise an individualized program for Caregiver Training New precaution - to improve, our physical therapists will perform initial evaluation of pt's status upon admission and devise an individualized program for Patient precaution education Edema - to improve, our physical therapists will perform initial evaluation of pt's status upon admi ssion and devise an individualized program for Elevation Training, and Lymphedema Therapy Pain - to improve, our physical therapists will perform initial evaluation of pt's status upon admis mason and devise an individualized program for Modalities Poor balance - to improve, our physical therapists will perform initial evaluation of pt's status up on admission and devise an individualized program for Balance Training Poor endurance - to improve, our physical therapists will perform initial evaluation of pt's status upon admission and devise an individualized program for Endurance Training Weakness - to improve, our physical therapists will perform initial evaluation of pt's status upon a dmission and devise an individualized program for Aquatic Therapy, Neuromuscular Reeducation, and Str engthening Achieving independence - to improve, our physical therapists will perform initial evaluation of pt's status upon admission and devise an individualized program for Community Reintegration Activities - Diet - Liquid Texture Continue Regular - Tube Feed Continue N/A - Bladder care per protocol - Weight Bearing Precaution WBAT left LE - Fall Precaution Bed alarm TABS alarm Wheel chair alarm Critical cord compression c-spine - Skin care per protocol - Diet - Solid Texture Continue Regular - Shower allowing shower - Occupational Therapy ADL deficits - to improve, our occupation therapists will perform initial evaluation of pt's status upon admission and devise an individualized program for Bathing, Bed mobility, Community Reintegratio n, Cooking, Dressing, Eating, Fine Motor Skills, Grooming, Homemaking, Kitchen Mobility, Laundry, Pat ient Education, Safety Awareness, Splinting - Positioning, Transfers(Toilet, Tub, Shower), and Wheel Chair Management Need for senior care specialist - to improve, our occupation therapists will perform initial evaluation of pt's status upon admission and devise an individualized program for Caregiver Training Weakness - to improve, our occupation therapists will perform initial evaluation of pt's status upon admission and devise an individualized program for Aquatic Therapy, Balance, Endurance, UE ROM, and UE strengthening FUNCTIONAL STATUS: UPDATED AT WEEKLY TEAM CONFERENCE - Bladder Same accident frequency: 7-Ind - No accidents in the past 7 days - Bowel Same accident frequency: 7-Ind - No accidents in the past 7 days - Walking Same score based on distance walked: 3(>=150ft) - Wheelchair Same score based on distance traveled: 0(N/A) FUNCTIONAL STATUS: - Self-Care A. Eating sup B. Grooming sup C. Bathing sup D. Dressing - Upper sup E. Dressing - Lower sup F. Toileting Na - Sphincter Control G: Bladder control Ind H: Bowel control Ind - Transfers Control I. Bed/Chair/Wheelchair Na J. Toilet aN K. Tub/Shower ADNO - Locomotion L. Walk/Wheelchair (B) Na M. Stairs ADNO - Communication N. Comprehension (B) Nate O. Expression (B) Nate - Social Cognition P. Social Interaction Nate Q. Problem Solving Nate R. Memory Nate - Endurance Fair - Balance Poor - Safety Awareness [facility]: Transfers Control, Balance, Self-Care, Locomotion, Endurance, and Safety Awareness SIGNATURE PANEL: (CDT)
[2018-03-10] MEDS: ATORVASTATIN 80 MG TAB PO SCH (20:38)
[2018-03-10] MEDS: DOCUSATE NA/SENNA CONC 1 TAB PO SCH (20:41)
--- NOTE | 2018-03-11 04:36 | FAST ---
SHIFT START DATE/TIME: 03/10/2018 19:00 (CDT) SHIFT END DATE/TIME: 03/11/2018 07:00 (CDT) NAME JAIRO GERMAIN DATE OF : 1955 DATE OF ADMISSION: 02/24/2018 23:45 (CDT) PHONE: AGE: 62 [facility]# [id number] GENDER: Male ENCOUNTER PHYSICIAN: Dr. Edilson Fritz M.D. ADMISSION DIAGNOSIS: - Stroke 01 - Left Body (Right Brain) (01.1) Sub acute basal ganglia infarct. EATING: Activity did not occur on this shift EATING - SCORE: 0-UNK GROOMING: Activity did not occur on this shift GROOMING - SCORE: 0-UNK BATHING: Activity did not occur on this shift BATHING - SCORE: 0-UNK DRESSING - UPPER BODY: Patient is not dressing in public clothing ARTICLES SCORE Total number of steps: 0 DRESSING - UPPER BODY - SCORE: 0-UNK DRESSING - LOWER BODY: Patient is not dressing in public clothing ARTICLES SCORE Total number of steps: 0 DRESSING - LOWER BODY - SCORE: 0-UNK TOILETING: TOILETING - STEP 1: Does the patient require assistance with toileting? Yes. TOILETING - STEP 2: Does the patient require the assistance of a helper? Yes. TOILETING - STEP 3: How much assistance does the patient require from the helper? Only supervision TOILETING - SCORE: 5-SUP BLADDER MANAGEMENT: BLADDER MANAGEMENT - STEP 1: Does the patient control the bladder completely and intentionally without equipment or devices or med ications, and is always continent? No. BLADDER MANAGEMENT - STEP 2: Does the patient require the assistance of a helper? Yes. BLADDER MANAGEMENT - STEP 3: How much assistance does the patient require from the helper? Only set-up of equipment - such as plac ing it within reach of the patient or emptying a device - to maintain either satisfactory voiding pat tern or managing an external device, such as an absorbent pad, ileal device, or catheter BLADDER MANAGEMENT - SCORE: 5-SUP BOWEL MANAGEMENT: Activity did not occur on this shift BOWEL MANAGEMENT - SCORE: 7-IND TRANSFERS: BED, CHAIR, WHEELCHAIR: Activity did not occur on this shift TRANSFERS: BED, CHAIR, WHEELCHAIR - SCORE: 0-UNK TRANSFERS: TOILET: Activity did not occur on this shift TRANSFERS: TOILET - SCORE: 0-UNK TRANSFERS: SHOWER: Activity did not occur on this shift TRANSFERS: SHOWER - SCORE: 0-UNK TRANSFERS: TUB: Activity did not occur on this shift TRANSFERS: TUB - SCORE: 0-UNK LOCOMOTION: WALK: Activity did not occur on this shift LOCOMOTION: WALK - SCORE: 0-UNK LOCOMOTION: WHEELCHAIR: Activity did not occur on this shift LOCOMOTION: WHEELCHAIR - SCORE: 0-UNK COMPREHENSION: COMPREHENSION - STEP 1: Does the patient require help to understand complex and abstract ideas (such as current events, finan gino, discharge planning, medical issues, relationships, etc)? No. COMPREHENSION - STEP 2: Does the patient need extra time, require an assistive device (such as glasses, hearing aids, or an a ugmentative communication system), OR does s/he have mild difficulty expressing complex and abstract ideas (including mild dysarthria or mild word-finding problems)? Yes. COMPREHENSION - SCORE: 6-CLAUDIO EXPRESSION EXPRESSION - STEP 1: Does the patient require help expressing complex and abstract ideas (such as current events, finances , discharge planning, medical issues, relationships, etc)? No. EXPRESSION - STEP 2: Does the patient need extra time, require an assistive device (such as augmentive communication syste m or a communication board), OR does s/he have mild difficulty expressing complex and abstract ideas (including mild dysarthria or mild word-find problems)? No. EXPRESSION - SCORE: 7-IND SOCIAL INTERACTION: SOCIAL INTERACTION - STEP 1: Does the patient require a helper to interact with others in social and therapeutic situations? No. SOCIAL INTERACTION - STEP 2: Does the patient need extra time in social situations, OR does s/he interact with staff, other patien ts, and family members ONLY in structured environments, OR does s/he require medication for social in teraction? No. SOCIAL INTERACTION - SCORE: 7-IND PROBLEM SOLVING: PROBLEM SOLVING - STEP 1: Does the patient need help to solve complex problems such as managing a checking account or confronti ng interpersonal problems? No. PROBLEM SOLVING - STEP 2: Does the patient require extra time to make decisions or solve problems, OR does s/he have slight dif ficulty reading, initiating, or self-correcting in unfamiliar situations? Yes, patient needs extra ti me. PROBLEM SOLVING - SCORE: 6-CLAUDIO MEMORY: MEMORY - STEP 1: Does the patient need help to remember frequently encountered people, daily routines, and executing r equests? No. MEMORY - STEP 2: Does the patient have slight difficulty recognizing frequently encountered people, daily routines, or executing requests without the need for repetition or using self-initiated or environmental cues to remember? Yes. MEMORY - SCORE: 6-CLAUDIO SIGNATURE PANEL: The following modified sections: Eating - Score, Grooming - Score, Dressing - Upper Body - Score, Chun ssing - Lower Body - Score, Toileting - Score, Bladder Management - Score, Bowel Management - Score, Transfers: Bed, Chair, Wheelchair - Score, Transfers: Toilet - Score, Transfers: Shower - Score, Mcclellan sfers: Tub - Score, Locomotion: Walk - Score, Locomotion: Wheelchair - Score, Comprehension - Score, Expression - Score, Social Interaction - Score, Problem Solving - Score, Memory - Score were [electro nically] signed by Dominga Perez CNA on ThuMar 11 2018 03:38:17 T-0500 (Central Daylight Time)
[2018-03-11 06:57] LABS: Absolute Lymphocytes (CBC) 1.3 K/uL (0.7-4.9); Absolute Monocytes 0.5 K/uL (0.1-1.3); Absolute Neutrophil 2.9 K/uL (1.8-8.0); Basophils % 0.8 % (0-1.3); Eosinophils % 4.1 % (0-4.4); Hematocrit 31.4 % (39.6-49.0); MCH 30.2 pg (27.0-35.0); MPV 8.2 fL (7.6-11.3); Monocytes % 9.7 % (3.3-12.3)
[2018-03-11 07:49] LABS: Albumin 3.7 g/dL (3.2-5.5); Potassium 4.3 mEq/L (3.6-5.0); Prealbumin 21.6 mg/dl (18-38)
[2018-03-11] MEDS: LIDOCAINE 5% PATCH TOP SCH (08:15)
[2018-03-11] MEDS: CLOPIDOGREL 75 MG TABLET PO SCH (08:16)
[2018-03-11] MEDS: VALSARTAN 160 MG TAB PO SCH ×2 (08:16→20:36)
[2018-03-11] MEDS: ASPIRIN EC 81 MG TAB PO SCH (08:16)
[2018-03-11] MEDS: TRAMADOL HCL 50 MG TAB PO PRN ×3 (08:17→20:36)
--- NOTE | 2018-03-11 11:31 | FAST ---
SHIFT START DATE/TIME: 03/11/2018 07:00 (CDT) SHIFT END DATE/TIME: 03/11/2018 19:00 (CDT) NAME JAIRO GERMAIN DATE OF : 1955 DATE OF ADMISSION: 02/24/2018 23:45 (CDT) PHONE: AGE: 62 [facility]# [id number] GENDER: Male ENCOUNTER PHYSICIAN: Dr. Edilson Fritz M.D. ADMISSION DIAGNOSIS: - Stroke 01 - Left Body (Right Brain) (01.1) Sub acute basal ganglia infarct. EATING: EATING - STEP 1: Does the patient require assistance when eating? Yes. EATING - STEP 2: Does the patient require the assistance of a helper? No, patient only requires an assistive device, O R s/he takes more than reasonable time to eat, OR there is a safety concern, OR s/he requires modifie d food consistency EATING - SCORE: 6-CLAUDIO GROOMING: Comb/brush hair Oral care Wash, rinse, and dry face Wash, rinse, and dry hands GROOMING - STEP 1: Does the patient require assistance when grooming? Yes. GROOMING - STEP 2: Does the patient require the assistance of a helper? No. The patient only requires an assistive devic e, OR takes more than reasonable time to groom, OR there is a concern for safety as the patient groom s GROOMING - SCORE: 6-CLAUDIO BATHING: Activity did not occur on this shift BATHING - SCORE: 0-UNK DRESSING - UPPER BODY: Activity did not occur on this shift ARTICLES SCORE Total number of steps: 0 DRESSING - UPPER BODY - SCORE: 0-UNK DRESSING - LOWER BODY: Activity did not occur on this shift ARTICLES SCORE Total number of steps: 0 DRESSING - LOWER BODY - SCORE: 0-UNK TOILETING: TOILETING - STEP 1: Does the patient require assistance with toileting? Yes. TOILETING - STEP 2: Does the patient require the assistance of a helper? Yes. TOILETING - STEP 3: How much assistance does the patient require from the helper? Hands-on assistance from the helper TOILETING - STEP 4: Of the 3 tasks: 1) Adjusting clothing prior to use, 2) Cleansing of perineal area, 3) Adjusting clot bernard after use; How many tasks does the patient perform WITHOUT assistance of the helper? Two tasks TOILETING - SCORE: 3-MOD BLADDER MANAGEMENT: BLADDER MANAGEMENT - STEP 1: Does the patient control the bladder completely and intentionally without equipment or devices or med ications, and is always continent? No. BLADDER MANAGEMENT - STEP 2: Does the patient require the assistance of a helper? No, patient requires and independently uses an a ssistive device, such as a urinal, bedpan, bedside commode, catheter, absorbent pad, or collecting de vice BLADDER MANAGEMENT - SCORE: 6-CLAUDIO BOWEL MANAGEMENT: Activity did not occur on this shift BOWEL MANAGEMENT - SCORE: 7-IND TRANSFERS: BED, CHAIR, WHEELCHAIR: TRANSFERS: BED, CHAIR, WHEELCHAIR - STEP 1: Does the patient require assistance with bed, chair, or wheelchair transfers? Yes. TRANSFERS: BED, CHAIR, WHEELCHAIR - STEP 2: Does the patient require the assistance of a helper? Yes. TRANSFERS: BED, CHAIR, WHEELCHAIR - STEP 3: How much assistance does the patient require from the helper? Steadying/guiding assistance TRANSFERS: BED, CHAIR, WHEELCHAIR - SCORE: 4-MIN TRANSFERS: TOILET: TRANSFERS: TOILET - STEP 1: Does the patient require assistance with toilet transfers? Yes. TRANSFERS: TOILET - STEP 2: Does the patient require the assistance of a helper? Yes. TRANSFERS: TOILET - STEP 3: How much assistance does the patient require from the helper? Patient performs half or more of the tr ansferring tasks TRANSFERS: TOILET - STEP 4: Does the patient need only incidental help such as contact guard or steadying during toilet transfer? Yes. TRANSFERS: TOILET - SCORE: 4-MIN TRANSFERS: SHOWER: Activity did not occur on this shift TRANSFERS: SHOWER - SCORE: 0-UNK TRANSFERS: TUB: Activity did not occur on this shift TRANSFERS: TUB - SCORE: 0-UNK LOCOMOTION: WALK: Activity did not occur on this shift LOCOMOTION: WALK - SCORE: 0-UNK LOCOMOTION: WHEELCHAIR: Activity did not occur on this shift LOCOMOTION: WHEELCHAIR - SCORE: 0-UNK COMPREHENSION: COMPREHENSION - SCORE: 0-UNK EXPRESSION EXPRESSION - SCORE: 0-UNK SOCIAL INTERACTION: SOCIAL INTERACTION - SCORE: 0-UNK PROBLEM SOLVING: PROBLEM SOLVING - SCORE: 0-UNK MEMORY: MEMORY - SCORE: 0-UNK SIGNATURE PANEL: The following modified sections: Eating - Score, Grooming - Score, Bathing - Score, Dressing - Upper Body - Score, Dressing - Lower Body - Score, Toileting - Score, Bladder Management - Score, Bowel Man agement - Score, Transfers: Bed, Chair, Wheelchair - Score, Transfers: Toilet - Score, Transfers: Luz Maria wer - Score, Transfers: Tub - Score, Locomotion: Walk - Score, Locomotion: Wheelchair - Score, Compre hension - Score, Expression - Score, Social Interaction - Score, Problem Solving - Score, Memory - Sc ore were [electronically] signed by Sonu Reece on ThuMar 11 2018 10:33:00 GMT-0500 (Central Daylight Time)
--- NOTE | 2018-03-11 15:33 | FAST ---
ENCOUNTER DATE AND TIME: 03/11/2018 08:00 (CDT) NAME JAIRO GERMAIN DATE OF : 1955 DATE OF ADMISSION: 02/24/2018 23:45 (CDT) PHONE: AGE: 62 [facility]# [id number] GENDER: Male ENCOUNTER PHYSICIAN: Dr. Edilson Fritz M.D. ADMISSION DIAGNOSIS: - Stroke 01 - Left Body (Right Brain) (01.1) Sub acute basal ganglia infarct. EATING: Activity did not occur on this shift EATING - SCORE: 0-UNK GROOMING: Activity did not occur on this shift GROOMING - SCORE: 0-UNK BATHING: Activity did not occur on this shift BATHING - SCORE: 0-UNK DRESSING - UPPER BODY: Activity did not occur on this shift ARTICLES SCORE Total number of steps: 0 DRESSING - UPPER BODY - SCORE: 0-UNK DRESSING - LOWER BODY: Activity did not occur on this shift ARTICLES SCORE Total number of steps: 0 DRESSING - LOWER BODY - SCORE: 0-UNK TOILETING: TOILETING - STEP 1: Does the patient require assistance with toileting? Yes. TOILETING - STEP 2: Does the patient require the assistance of a helper? No. TOILETING - SCORE: 6-CLAUDIO BLADDER MANAGEMENT: Activity did not occur on this shift BLADDER MANAGEMENT - SCORE: 7-IND BOWEL MANAGEMENT: Activity did not occur on this shift BOWEL MANAGEMENT - SCORE: 7-IND TRANSFERS: BED, CHAIR, WHEELCHAIR: Activity did not occur on this shift TRANSFERS: BED, CHAIR, WHEELCHAIR - SCORE: 0-UNK TRANSFERS: TOILET: TRANSFERS: TOILET - STEP 1: Does the patient require assistance with toilet transfers? Yes. TRANSFERS: TOILET - STEP 2: Does the patient require the assistance of a helper? No. Patient only requires an assistive device kim ch as a grab bar or special seat, OR s/he takes more than reasonable time to perform toilet transfers , OR there is a safety concern when s/he performs toilet transfers. TRANSFERS: TOILET - SCORE: 6-CLAUDIO TRANSFERS: SHOWER: Activity did not occur on this shift TRANSFERS: SHOWER - SCORE: 0-UNK TRANSFERS: TUB: Activity did not occur on this shift TRANSFERS: TUB - SCORE: 0-UNK LOCOMOTION: WALK: Activity did not occur on this shift LOCOMOTION: WALK - SCORE: 0-UNK LOCOMOTION: WHEELCHAIR: Activity did not occur on this shift LOCOMOTION: WHEELCHAIR - SCORE: 0-UNK LOCOMOTION: STAIRS: Activity did not occur on this shift LOCOMOTION: STAIRS - SCORE: 0-UNK COMPREHENSION: COMPREHENSION - STEP 1: Does the patient require help to understand complex and abstract ideas (such as current events, finan gino, discharge planning, medical issues, relationships, etc)? No. COMPREHENSION - STEP 2: Does the patient need extra time, require an assistive device (such as glasses, hearing aids, or an a ugmentative communication system), OR does s/he have mild difficulty expressing complex and abstract ideas (including mild dysarthria or mild word-finding problems)? No. COMPREHENSION - SCORE: 7-IND EXPRESSION EXPRESSION: TYPE: Non-Vocal EXPRESSION - STEP 1: Does the patient require help expressing complex and abstract ideas (such as current events, finances , discharge planning, medical issues, relationships, etc)? No. EXPRESSION - STEP 2: Does the patient need extra time, require an assistive device (such as augmentive communication syste m or a communication board), OR does s/he have mild difficulty expressing complex and abstract ideas (including mild dysarthria or mild word-find problems)? No. EXPRESSION - SCORE: 7-IND SOCIAL INTERACTION: SOCIAL INTERACTION - STEP 1: Does the patient require a helper to interact with others in social and therapeutic situations? No. SOCIAL INTERACTION - STEP 2: Does the patient need extra time in social situations, OR does s/he interact with staff, other patien ts, and family members ONLY in structured environments, OR does s/he require medication for social in teraction? No. SOCIAL INTERACTION - SCORE: 7-IND PROBLEM SOLVING: PROBLEM SOLVING - STEP 1: Does the patient need help to solve complex problems such as managing a checking account or confronti ng interpersonal problems? No. PROBLEM SOLVING - STEP 2: Does the patient require extra time to make decisions or solve problems, OR does s/he have slight dif ficulty reading, initiating, or self-correcting in unfamiliar situations? No. PROBLEM SOLVING - SCORE: 7-IND MEMORY: MEMORY - STEP 1: Does the patient need help to remember frequently encountered people, daily routines, and executing r equests? No. MEMORY - STEP 2: Does the patient have slight difficulty recognizing frequently encountered people, daily routines, or executing requests without the need for repetition or using self-initiated or environmental cues to remember? No. MEMORY - SCORE: 7-IND SIGNATURE PANEL: The following modified sections: Eating - Score, Grooming - Score, Bathing - Score, Dressing - Upper Body - Score, Dressing - Lower Body - Score, Toileting - Score, Transfers: Bed, Chair, Wheelchair - S core, Transfers: Toilet - Score, Transfers: Shower - Score, Transfers: Tub - Score, Comprehension - S core, Expression - Score, Social Interaction - Score, Problem Solving - Score, Memory - Score were [e lectronically] signed by IHSAN Harrison on ThuMar 11 2018 14:35:08 [facility]-0500 ([facility] Time)
[2018-03-11] MEDS: ENOXAPARIN 40 MG/0.4 ML SQ SCH (16:17)
--- NOTE | 2018-03-11 16:47 | FAST ---
ENCOUNTER DATE AND TIME: 03/08/2018 08:00 (CDT) NAME JAIRO GERMAIN DATE OF : 1955 DATE OF ADMISSION: 02/24/2018 23:45 (CDT) PHONE: AGE: 62 [facility]# [phone] GENDER: Male ENCOUNTER PHYSICIAN: Dr. Edilson Fritz M.D. ADMISSION DIAGNOSIS: - Stroke 01 - Left Body (Right Brain) (01.1) Sub acute basal ganglia infarct. EATING: Activity did not occur on this shift EATING - SCORE: 0-UNK GROOMING: Activity did not occur on this shift GROOMING - SCORE: 0-UNK BATHING: Activity did not occur on this shift BATHING - SCORE: 0-UNK DRESSING - UPPER BODY: Activity did not occur on this shift Patient is not dressing in public clothing ARTICLES SCORE Total number of steps: 0 DRESSING - UPPER BODY - SCORE: 0-UNK DRESSING - LOWER BODY: Activity did not occur on this shift Patient is not dressing in public clothing ARTICLES SCORE Total number of steps: 0 DRESSING - LOWER BODY - SCORE: 0-UNK TOILETING: Activity did not occur on this shift TOILETING - SCORE: 0-UNK BLADDER MANAGEMENT: Activity did not occur on this shift BLADDER MANAGEMENT - SCORE: 7-IND BOWEL MANAGEMENT: Activity did not occur on this shift BOWEL MANAGEMENT - SCORE: 7-IND TRANSFERS: BED, CHAIR, WHEELCHAIR: TRANSFERS: BED, CHAIR, WHEELCHAIR - STEP 1: Does the patient require assistance with bed, chair, or wheelchair transfers? Yes. TRANSFERS: BED, CHAIR, WHEELCHAIR - STEP 2: Does the patient require the assistance of a helper? Yes. TRANSFERS: BED, CHAIR, WHEELCHAIR - STEP 3: How much assistance does the patient require from the helper? Only supervision TRANSFERS: BED, CHAIR, WHEELCHAIR - SCORE: 5-SUP TRANSFERS: TOILET: Activity did not occur on this shift TRANSFERS: TOILET - SCORE: 0-UNK TRANSFERS: SHOWER: Activity did not occur on this shift TRANSFERS: SHOWER - SCORE: 0-UNK TRANSFERS: TUB: Activity did not occur on this shift TRANSFERS: TUB - SCORE: 0-UNK LOCOMOTION: WALK: LOCOMOTION: WALK - STEP 1: Does the patient need help to walk 150 feet? Yes. LOCOMOTION: WALK - STEP 2: How much assistance does the patient require to walk a minimum of 150 feet? Only supervision, cuing, or coaxing LOCOMOTION: WALK - SCORE: 5-SUP LOCOMOTION: WHEELCHAIR: LOCOMOTION: WHEELCHAIR - STEP 1: Does the patient need help to go 150 feet in a wheelchair? Yes. LOCOMOTION: WHEELCHAIR - STEP 2: How much assistance does the patient need from the helper? Only supervision, cuing, or coaxing LOCOMOTION: WHEELCHAIR - SCORE: 5-SUP LOCOMOTION: STAIRS: Activity did not occur on this shift LOCOMOTION: STAIRS - SCORE: 0-UNK COMPREHENSION: COMPREHENSION - SCORE: 0-UNK EXPRESSION EXPRESSION - SCORE: 0-UNK SOCIAL INTERACTION: SOCIAL INTERACTION - SCORE: 0-UNK PROBLEM SOLVING: PROBLEM SOLVING - SCORE: 0-UNK MEMORY: MEMORY - SCORE: 0-UNK SIGNATURE PANEL: The following modified sections: Transfers: Bed, Chair, Wheelchair - Score, Transfers: Toilet - Score , Locomotion: Walk - Score, Locomotion: Wheelchair - Score, Locomotion: Stairs - Score were [aziza lozano] signed by Maurisio Estrella PTA on ThuMar 11 2018 15:48:43 T-0500 (Central Daylight Time)
--- NOTE | 2018-03-11 16:48 | FAST ---
ENCOUNTER DATE AND TIME: 03/09/2018 08:00 (CDT) NAME JAIRO GERMAIN DATE OF : 1955 DATE OF ADMISSION: 02/24/2018 23:45 (CDT) PHONE: AGE: 62 [facility]# [id number] GENDER: Male ENCOUNTER PHYSICIAN: Dr. Edilson Fritz M.D. ADMISSION DIAGNOSIS: - Stroke 01 - Left Body (Right Brain) (01.1) Sub acute basal ganglia infarct. EATING: Activity did not occur on this shift EATING - SCORE: 0-UNK GROOMING: Activity did not occur on this shift GROOMING - SCORE: 0-UNK BATHING: Activity did not occur on this shift BATHING - SCORE: 0-UNK DRESSING - UPPER BODY: Activity did not occur on this shift Patient is not dressing in public clothing ARTICLES SCORE Total number of steps: 0 DRESSING - UPPER BODY - SCORE: 0-UNK DRESSING - LOWER BODY: Activity did not occur on this shift Patient is not dressing in public clothing ARTICLES SCORE Total number of steps: 0 DRESSING - LOWER BODY - SCORE: 0-UNK TOILETING: Activity did not occur on this shift TOILETING - SCORE: 0-UNK BLADDER MANAGEMENT: Activity did not occur on this shift BLADDER MANAGEMENT - SCORE: 7-IND BOWEL MANAGEMENT: Activity did not occur on this shift BOWEL MANAGEMENT - SCORE: 7-IND TRANSFERS: BED, CHAIR, WHEELCHAIR: TRANSFERS: BED, CHAIR, WHEELCHAIR - STEP 1: Does the patient require assistance with bed, chair, or wheelchair transfers? Yes. TRANSFERS: BED, CHAIR, WHEELCHAIR - STEP 2: Does the patient require the assistance of a helper? Yes. TRANSFERS: BED, CHAIR, WHEELCHAIR - STEP 3: How much assistance does the patient require from the helper? Only supervision TRANSFERS: BED, CHAIR, WHEELCHAIR - SCORE: 5-SUP TRANSFERS: TOILET: Activity did not occur on this shift TRANSFERS: TOILET - SCORE: 0-UNK TRANSFERS: SHOWER: Activity did not occur on this shift TRANSFERS: SHOWER - SCORE: 0-UNK TRANSFERS: TUB: Activity did not occur on this shift TRANSFERS: TUB - SCORE: 0-UNK LOCOMOTION: WALK: LOCOMOTION: WALK - STEP 1: Does the patient need help to walk 150 feet? Yes. LOCOMOTION: WALK - STEP 2: How much assistance does the patient require to walk a minimum of 150 feet? Only supervision, cuing, or coaxing LOCOMOTION: WALK - SCORE: 5-SUP LOCOMOTION: WHEELCHAIR: LOCOMOTION: WHEELCHAIR - STEP 1: Does the patient need help to go 150 feet in a wheelchair? Yes. LOCOMOTION: WHEELCHAIR - STEP 2: How much assistance does the patient need from the helper? Only supervision, cuing, or coaxing LOCOMOTION: WHEELCHAIR - SCORE: 5-SUP LOCOMOTION: STAIRS: Activity did not occur on this shift LOCOMOTION: STAIRS - SCORE: 0-UNK COMPREHENSION: COMPREHENSION - SCORE: 0-UNK EXPRESSION EXPRESSION - SCORE: 0-UNK SOCIAL INTERACTION: SOCIAL INTERACTION - SCORE: 0-UNK PROBLEM SOLVING: PROBLEM SOLVING - SCORE: 0-UNK MEMORY: MEMORY - SCORE: 0-UNK SIGNATURE PANEL: The following modified sections: Transfers: Bed, Chair, Wheelchair - Score, Transfers: Toilet - Score , Locomotion: Walk - Score, Locomotion: Wheelchair - Score, Locomotion: Stairs - Score were [aziza lozano] signed by Maurisio Estrella PTA on ThuMar 11 2018 15:50:00 GMT-0500 (Central Daylight Time)
--- NOTE | 2018-03-11 16:50 | FAST ---
ENCOUNTER DATE AND TIME: 03/10/2018 08:00 (CDT) NAME JAIRO GERMAIN DATE OF : 1955 DATE OF ADMISSION: 02/24/2018 23:45 (CDT) PHONE: AGE: 62 [facility]# [id number] GENDER: Male ENCOUNTER PHYSICIAN: Dr. Edilson Fritz M.D. ADMISSION DIAGNOSIS: - Stroke 01 - Left Body (Right Brain) (01.1) Sub acute basal ganglia infarct. EATING: Activity did not occur on this shift EATING - SCORE: 0-UNK GROOMING: Activity did not occur on this shift GROOMING - SCORE: 0-UNK BATHING: Activity did not occur on this shift BATHING - SCORE: 0-UNK DRESSING - UPPER BODY: Activity did not occur on this shift Patient is not dressing in public clothing ARTICLES SCORE Total number of steps: 0 DRESSING - UPPER BODY - SCORE: 0-UNK DRESSING - LOWER BODY: Activity did not occur on this shift Patient is not dressing in public clothing ARTICLES SCORE Total number of steps: 0 DRESSING - LOWER BODY - SCORE: 0-UNK TOILETING: Activity did not occur on this shift TOILETING - SCORE: 0-UNK BLADDER MANAGEMENT: Activity did not occur on this shift BLADDER MANAGEMENT - SCORE: 7-IND BOWEL MANAGEMENT: Activity did not occur on this shift BOWEL MANAGEMENT - SCORE: 7-IND TRANSFERS: BED, CHAIR, WHEELCHAIR: TRANSFERS: BED, CHAIR, WHEELCHAIR - STEP 1: Does the patient require assistance with bed, chair, or wheelchair transfers? Yes. TRANSFERS: BED, CHAIR, WHEELCHAIR - STEP 2: Does the patient require the assistance of a helper? Yes. TRANSFERS: BED, CHAIR, WHEELCHAIR - STEP 3: How much assistance does the patient require from the helper? Only supervision TRANSFERS: BED, CHAIR, WHEELCHAIR - SCORE: 5-SUP TRANSFERS: TOILET: Activity did not occur on this shift TRANSFERS: TOILET - SCORE: 0-UNK TRANSFERS: SHOWER: Activity did not occur on this shift TRANSFERS: SHOWER - SCORE: 0-UNK TRANSFERS: TUB: Activity did not occur on this shift TRANSFERS: TUB - SCORE: 0-UNK LOCOMOTION: WALK: LOCOMOTION: WALK - STEP 1: Does the patient need help to walk 150 feet? Yes. LOCOMOTION: WALK - STEP 2: How much assistance does the patient require to walk a minimum of 150 feet? Only supervision, cuing, or coaxing LOCOMOTION: WALK - SCORE: 5-SUP LOCOMOTION: WHEELCHAIR: LOCOMOTION: WHEELCHAIR - STEP 1: Does the patient need help to go 150 feet in a wheelchair? No. LOCOMOTION: WHEELCHAIR - SCORE: 6-CLAUDIO LOCOMOTION: STAIRS: Activity did not occur on this shift LOCOMOTION: STAIRS - SCORE: 0-UNK COMPREHENSION: COMPREHENSION - SCORE: 0-UNK EXPRESSION EXPRESSION - SCORE: 0-UNK SOCIAL INTERACTION: SOCIAL INTERACTION - SCORE: 0-UNK PROBLEM SOLVING: PROBLEM SOLVING - SCORE: 0-UNK MEMORY: MEMORY - SCORE: 0-UNK SIGNATURE PANEL: The following modified sections: Transfers: Bed, Chair, Wheelchair - Score, Transfers: Toilet - Score , Locomotion: Walk - Score, Locomotion: Wheelchair - Score, Locomotion: Stairs - Score were [electron marta] signed by Maurisio Estrella PTA on ThuMar 11 2018 15:51:07 T-0500 (Central Daylight Time)
--- NOTE | 2018-03-11 16:51 | FAST ---
ENCOUNTER DATE AND TIME: 03/11/2018 08:00 (CDT) NAME JAIRO GERMAIN DATE OF : 1955 DATE OF ADMISSION: 02/24/2018 23:45 (CDT) PHONE: AGE: 62 [facility]# [id number] GENDER: Male ENCOUNTER PHYSICIAN: Dr. Edilson Fritz M.D. ADMISSION DIAGNOSIS: - Stroke 01 - Left Body (Right Brain) (01.1) Sub acute basal ganglia infarct. EATING: Activity did not occur on this shift EATING - SCORE: 0-UNK GROOMING: Activity did not occur on this shift GROOMING - SCORE: 0-UNK BATHING: Activity did not occur on this shift BATHING - SCORE: 0-UNK DRESSING - UPPER BODY: Activity did not occur on this shift Patient is not dressing in public clothing ARTICLES SCORE Total number of steps: 0 DRESSING - UPPER BODY - SCORE: 0-UNK DRESSING - LOWER BODY: Activity did not occur on this shift Patient is not dressing in public clothing ARTICLES SCORE Total number of steps: 0 DRESSING - LOWER BODY - SCORE: 0-UNK TOILETING: Activity did not occur on this shift TOILETING - SCORE: 0-UNK BLADDER MANAGEMENT: Activity did not occur on this shift BLADDER MANAGEMENT - SCORE: 7-IND BOWEL MANAGEMENT: Activity did not occur on this shift BOWEL MANAGEMENT - SCORE: 7-IND TRANSFERS: BED, CHAIR, WHEELCHAIR: TRANSFERS: BED, CHAIR, WHEELCHAIR - STEP 1: Does the patient require assistance with bed, chair, or wheelchair transfers? Yes. TRANSFERS: BED, CHAIR, WHEELCHAIR - STEP 2: Does the patient require the assistance of a helper? Yes. TRANSFERS: BED, CHAIR, WHEELCHAIR - STEP 3: How much assistance does the patient require from the helper? Only supervision TRANSFERS: BED, CHAIR, WHEELCHAIR - SCORE: 5-SUP TRANSFERS: TOILET: Activity did not occur on this shift TRANSFERS: TOILET - SCORE: 0-UNK TRANSFERS: SHOWER: Activity did not occur on this shift TRANSFERS: SHOWER - SCORE: 0-UNK TRANSFERS: TUB: Activity did not occur on this shift TRANSFERS: TUB - SCORE: 0-UNK LOCOMOTION: WALK: LOCOMOTION: WALK - STEP 1: Does the patient need help to walk 150 feet? Yes. LOCOMOTION: WALK - STEP 2: How much assistance does the patient require to walk a minimum of 150 feet? Only supervision, cuing, or coaxing LOCOMOTION: WALK - SCORE: 5-SUP LOCOMOTION: WHEELCHAIR: LOCOMOTION: WHEELCHAIR - STEP 1: Does the patient need help to go 150 feet in a wheelchair? No. LOCOMOTION: WHEELCHAIR - SCORE: 6-CLAUDIO LOCOMOTION: STAIRS: Activity did not occur on this shift LOCOMOTION: STAIRS - SCORE: 0-UNK COMPREHENSION: COMPREHENSION - SCORE: 0-UNK EXPRESSION EXPRESSION - SCORE: 0-UNK SOCIAL INTERACTION: SOCIAL INTERACTION - SCORE: 0-UNK PROBLEM SOLVING: PROBLEM SOLVING - SCORE: 0-UNK MEMORY: MEMORY - SCORE: 0-UNK SIGNATURE PANEL: The following modified sections: Transfers: Bed, Chair, Wheelchair - Score, Transfers: Toilet - Score , Locomotion: Walk - Score, Locomotion: Wheelchair - Score, Locomotion: Stairs - Score were [electron marta] signed by Maurisio Estrella PTA on ThuMar 11 2018 15:52:15 T-0500 (Central Daylight Time)
[2018-03-11] MEDS: ATORVASTATIN 80 MG TAB PO SCH (20:36)
[2018-03-11] MEDS: DOCUSATE NA/SENNA CONC 1 TAB PO SCH (20:38)
--- NOTE | 2018-03-12 05:02 | FAST ---
SHIFT START DATE/TIME: 03/11/2018 19:00 (CDT) SHIFT END DATE/TIME: 03/12/2018 07:00 (CDT) NAME JAIRO GERMAIN DATE OF : 1955 DATE OF ADMISSION: 02/24/2018 23:45 (CDT) PHONE: AGE: 62 [facility]# [id number] GENDER: Male ENCOUNTER PHYSICIAN: Dr. Edilson Fritz M.D. ADMISSION DIAGNOSIS: - Stroke 01 - Left Body (Right Brain) (01.1) Sub acute basal ganglia infarct. EATING: EATING - STEP 1: Does the patient require assistance when eating? Yes. EATING - STEP 2: Does the patient require the assistance of a helper? No, patient only requires an assistive device, O R s/he takes more than reasonable time to eat, OR there is a safety concern, OR s/he requires modifie d food consistency EATING - SCORE: 6-CLAUDIO GROOMING: Activity did not occur on this shift GROOMING - SCORE: 0-UNK BATHING: Activity did not occur on this shift BATHING - SCORE: 0-UNK DRESSING - UPPER BODY: Patient is not dressing in public clothing ARTICLES SCORE Total number of steps: 0 DRESSING - UPPER BODY - SCORE: 0-UNK DRESSING - LOWER BODY: Patient is not dressing in public clothing ARTICLES SCORE Total number of steps: 0 DRESSING - LOWER BODY - SCORE: 0-UNK TOILETING: TOILETING - STEP 1: Does the patient require assistance with toileting? Yes. TOILETING - STEP 2: Does the patient require the assistance of a helper? Yes. TOILETING - STEP 3: How much assistance does the patient require from the helper? Only supervision TOILETING - SCORE: 5-SUP BLADDER MANAGEMENT: BLADDER MANAGEMENT - STEP 1: Does the patient control the bladder completely and intentionally without equipment or devices or med ications, and is always continent? No. BLADDER MANAGEMENT - STEP 2: Does the patient require the assistance of a helper? Yes. BLADDER MANAGEMENT - STEP 3: How much assistance does the patient require from the helper? Only set-up of equipment - such as plac ing it within reach of the patient or emptying a device - to maintain either satisfactory voiding pat tern or managing an external device, such as an absorbent pad, ileal device, or catheter BLADDER MANAGEMENT - SCORE: 5-SUP BLADDER MANAGEMENT - FREQUENCY OF ACCIDENTS: BLADDER MANAGEMENT(FA) - STEP 1: How many accidents has the patient had during the current shift? 0 BOWEL MANAGEMENT: Activity did not occur on this shift BOWEL MANAGEMENT - SCORE: 7-IND TRANSFERS: BED, CHAIR, WHEELCHAIR: Activity did not occur on this shift TRANSFERS: BED, CHAIR, WHEELCHAIR - SCORE: 0-UNK TRANSFERS: TOILET: Activity did not occur on this shift TRANSFERS: TOILET - SCORE: 0-UNK TRANSFERS: SHOWER: Activity did not occur on this shift TRANSFERS: SHOWER - SCORE: 0-UNK TRANSFERS: TUB: Activity did not occur on this shift TRANSFERS: TUB - SCORE: 0-UNK LOCOMOTION: WALK: Activity did not occur on this shift LOCOMOTION: WALK - SCORE: 0-UNK LOCOMOTION: WHEELCHAIR: Activity did not occur on this shift LOCOMOTION: WHEELCHAIR - SCORE: 0-UNK COMPREHENSION: COMPREHENSION: TYPE: Both COMPREHENSION - STEP 1: Does the patient require help to understand complex and abstract ideas (such as current events, finan gino, discharge planning, medical issues, relationships, etc)? No. COMPREHENSION - STEP 2: Does the patient need extra time, require an assistive device (such as glasses, hearing aids, or an a ugmentative communication system), OR does s/he have mild difficulty expressing complex and abstract ideas (including mild dysarthria or mild word-finding problems)? Yes. COMPREHENSION - SCORE: 6-CLAUDIO EXPRESSION EXPRESSION: TYPE: Both EXPRESSION - STEP 1: Does the patient require help expressing complex and abstract ideas (such as current events, finances , discharge planning, medical issues, relationships, etc)? No. EXPRESSION - STEP 2: Does the patient need extra time, require an assistive device (such as augmentive communication syste m or a communication board), OR does s/he have mild difficulty expressing complex and abstract ideas (including mild dysarthria or mild word-find problems)? No. EXPRESSION - SCORE: 7-IND SOCIAL INTERACTION: SOCIAL INTERACTION - STEP 1: Does the patient require a helper to interact with others in social and therapeutic situations? No. SOCIAL INTERACTION - STEP 2: Does the patient need extra time in social situations, OR does s/he interact with staff, other patien ts, and family members ONLY in structured environments, OR does s/he require medication for social in teraction? No. SOCIAL INTERACTION - SCORE: 7-IND PROBLEM SOLVING: PROBLEM SOLVING - STEP 1: Does the patient need help to solve complex problems such as managing a checking account or confronti ng interpersonal problems? No. PROBLEM SOLVING - STEP 2: Does the patient require extra time to make decisions or solve problems, OR does s/he have slight dif ficulty reading, initiating, or self-correcting in unfamiliar situations? No. PROBLEM SOLVING - SCORE: 7-IND MEMORY: MEMORY - STEP 1: Does the patient need help to remember frequently encountered people, daily routines, and executing r equests? No. MEMORY - STEP 2: Does the patient have slight difficulty recognizing frequently encountered people, daily routines, or executing requests without the need for repetition or using self-initiated or environmental cues to remember? No. MEMORY - SCORE: 7-IND SIGNATURE PANEL: The following modified sections: Eating - Score, Grooming - Score, Bathing - Score, Dressing - Upper Body - Score, Dressing - Lower Body - Score, Toileting - Score, Bladder Management - Score, Bowel Man agement - Score, Transfers: Bed, Chair, Wheelchair - Score, Transfers: Toilet - Score, Transfers: Luz Maria wer - Score, Transfers: Tub - Score, Locomotion: Walk - Score, Locomotion: Wheelchair - Score, Compre hension - Score, Expression - Score, Social Interaction - Score, Problem Solving - Score, Memory - Sc ore were [electronically] signed by Susan Thibodeaux C.N.AEmmanuel on ThuMar 12 2018 04:03:57 GMT-0500 ( Central Daylight Time)
[2018-03-12 07:51] VITALS: BP 140/86; TEMP 97.4
[2018-03-12] MEDS: LIDOCAINE 5% PATCH TOP SCH (08:06)
[2018-03-12] MEDS: ASPIRIN EC 81 MG TAB PO SCH (08:06)
[2018-03-12] MEDS: VALSARTAN 160 MG TAB PO SCH (08:07)
[2018-03-12] MEDS: CLOPIDOGREL 75 MG TABLET PO SCH (08:07)
[2018-03-12] MEDS: TRAMADOL HCL 50 MG TAB PO PRN ×2 (08:08→12:19)
--- NOTE | 2018-03-12 10:03 | P.RH.PN ---
Estimated Length of Stay: 17 Expected Discharge Date: 03/12/18 Discharge Disposition Plan: Home Family Support: Yes [facility] Goal: Mobility, Transfers, Self Care Vital Signs: Last Vital Signs Temp 97.4 F 03/12/18 07:50 Pulse 60 03/12/18 08:07 Resp 16 03/12/18 07:50 BP 140/86 03/12/18 08:07 Pulse Ox 98 03/12/18 07:50 Laboratory: Laboratory Last Values WBC 4.9 K/uL (4.3-10.9) D 03/11/18 06:06 RBC 3.70 M/uL (4.33-5.43) L 03/11/18 06:06 Hgb 11.2 g/dL (13.6-17.9) L 03/11/18 06:06 Hct 31.4 % (39.6-49.0) L 03/11/18 06:06 MCV 85.0 fL (80-100) 03/11/18 06:06 MCH 30.2 pg (27.0-35.0) 03/11/18 06:06 MCHC 35.6 g/dL (32.0-36.0) 03/11/18 06:06 RDW 13.6 % (12.1-15.2) 03/11/18 06:06 Plt Count 238 K/uL (152-406) D 03/11/18 06:06 MPV 8.2 fL (7.6-11.3) 03/11/18 06:06 Neutrophils % 58.4 % (41.7-73.7) 03/11/18 06:06 Lymphocytes % 27.0 % (15.3-44.8) 03/11/18 06:06 Monocytes % 9.7 % (3.3-12.3) 03/11/18 06:06 Eosinophils % 4.1 % (0-4.4) 03/11/18 06:06 Basophils % 0.8 % (0-1.3) 03/11/18 06:06 Absolute Neutrophils 2.9 K/uL (1.8-8.0) 03/11/18 06:06 Absolute Lymphocytes 1.3 K/uL (0.7-4.9) 03/11/18 06:06 Absolute Monocytes 0.5 K/uL (0.1-1.3) 03/11/18 06:06 Absolute Eosinophils 0.2 K/uL (0-0.5) 03/11/18 06:06 Absolute Basophils 0.0 K/uL (0-0.5) 03/11/18 06:06 Sodium 139 mEq/L (135-145) 03/11/18 06:06 Potassium 4.3 mEq/L (3.6-5.0) 03/11/18 06:06 Chloride 107 mEq/L (101-111) 03/11/18 06:06 Carbon Dioxide 28 mEq/L (21-31) 03/11/18 06:06 BUN 28 mg/dL (6-20) H 03/11/18 06:06 Creatinine 1.08 mg/dL (0.61-1.24) 03/11/18 06:06 Estimated GFR 70 mL/min (=/>90) L 03/11/18 06:06 Glucose 84 mg/dL (65-120) 03/11/18 06:06 Calcium 9.2 mg/dL (8.5-10.5) 03/11/18 06:06 Magnesium 2.0 mg/dL (1.8-2.5) 03/04/18 05:47 Albumin 3.7 g/dL (3.2-5.5) 03/11/18 06:06 Prealbumin 21.6 mg/dl (18-38) 03/11/18 06:06 Urine Color Yellow 02/25/18 00:05 Urine Appearance Clear 02/25/18 00:05 Urine pH 7.0 (5.0-7.0) 02/25/18 00:05 Ur Specific [place] 1.010 (1.005-1.030) 02/25/18 00:05 Urine Ketones Negative (NEG) 02/25/18 00:05 Urine Blood Negative (NEG) 02/25/18 00:05 Urine Nitrite Negative (NEG) 02/25/18 00:05 Urine Bilirubin Negative (NEG) 02/25/18 00:05 Urine Urobilinogen 0.2 mg/dL (0.2-1.0) 02/25/18 00:05 Ur Leukocyte Esterase Negative (NEG) 02/25/18 00:05 Urine RBC <5 /HPF (NONE SEEN) 02/25/18 00:05 Urine WBC None seen /HPF (<5) 02/25/18 00:05 Ur Squamous Epith Cells <5 /HPF (NONE SEEN) 02/25/18 00:05 Urine Bacteria <20 /HPF (NONE SEEN) 02/25/18 00:05 Urine Culture Reflexed Not needed 02/25/18 00:05 Urine Glucose Negative (NEG) 02/25/18 00:05 Urine Total Protein Trace (NEG) 02/25/18 00:05 Weight: 207 lb 12.8 oz Wound Present: Yes Closed Surgical Incision Present: Yes Negative Pressure Wound Therapy Present: No Physician Update: Blood work is stable with Hgb 11.2, creatinine 1.08 and prealbumin 21.6. He is modified independence with physical nad occupational therapy and will be discharged to [facility]. Medical Issues: pain on RLE Pain Issues: on Tylenol ES 500mg Q4H PRN Functional Improvement: Patient has made progress w/ transfers and gait tx., however continues to present w/ fatigue issues resulting in decreased distance travelled w/ ambulation. Functional Improvement Occupational Therapy: pt can benifit for futher therapy sessions to increase pt's UB strength, for FMC/GMC and to increase pt's static standing balance for safety when completing clothing mgmt and safety for LB/UB dressing tasks using A/E and to educate pt on energy conservation techniques due to pt's pain. cont with the POC and the goals by the supervising OTR Summary: Patient's care plan and intermediate goals have been reviewed and revised as necessary. Please see the Rehabilitation Signature page for all necessary signatures.
--- NOTE | 2018-03-12 14:47 | FAST ---
ENCOUNTER DATE AND TIME: 03/12/2018 08:00 (CDT) NAME JAIRO GERMAIN DATE OF : 1955 DATE OF ADMISSION: 02/24/2018 23:45 (CDT) PHONE: AGE: 62 N# [id number] GENDER: Male ENCOUNTER PHYSICIAN: Dr. Edilson Fritz M.D. ADMISSION DIAGNOSIS: - Stroke 01 - Left Body (Right Brain) (01.1) Sub acute basal ganglia infarct. EATING: Activity did not occur on this shift EATING - SCORE: 0-UNK GROOMING: Comb/brush hair Wash, rinse, and dry face Wash, rinse, and dry hands GROOMING - STEP 1: Does the patient require assistance when grooming? No. GROOMING - SCORE: 7-IND BATHING: Abdomen Buttocks Chest Left arm Left lower leg and foot Left upper leg Perineal area Right arm Right lower leg and foot Right upper leg BATHING - STEP 1: Does the patient require assistance when bathing? Yes. BATHING - STEP 2: Does the patient require the assistance of a helper? No. The patient only requires an assistive devic e such as a bath mandie, OR the patient takes more than reasonable time to bathe, OR there is a concern for safety such as regulating water temperature as the patient bathes. BATHING - SCORE: 6-CLAUDIO DRESSING - UPPER BODY: T-shirt/pullover shirt (four steps) ARTICLES SCORE Total number of steps: 4 DRESSING - UPPER BODY - STEP 1: Does the patient require help when dressing above the waist? No. DRESSING - UPPER BODY - SCORE: 7-IND DRESSING - LOWER BODY: Slip-on shoe - Left foot (one step) Slip-on shoe - Right foot (one step) Sock - Left foot (one step) Sock - Right foot (one step) Underwear (three steps) Zippered pants (four steps) ARTICLES SCORE Total number of steps: 11 DRESSING - LOWER BODY - STEP 1: Does the patient require help when dressing below the waist? Yes. DRESSING - LOWER BODY - STEP 2: Does the patient require the assistance of a helper? No. Patient requires an assistive device such as a floor manager. OR s/he takes more than reasonable time as s/he dresses the lower body, OR there is a con cern for safety when s/he dresses the lower body DRESSING - LOWER BODY - SCORE: 6-CLAUDIO TOILETING: Activity did not occur on this shift TOILETING - SCORE: 0-UNK BLADDER MANAGEMENT: Activity did not occur on this shift BLADDER MANAGEMENT - SCORE: 7-IND BOWEL MANAGEMENT: Activity did not occur on this shift BOWEL MANAGEMENT - SCORE: 7-IND TRANSFERS: BED, CHAIR, WHEELCHAIR: Activity did not occur on this shift TRANSFERS: BED, CHAIR, WHEELCHAIR - SCORE: 0-UNK TRANSFERS: TOILET: Activity did not occur on this shift TRANSFERS: TOILET - SCORE: 0-UNK TRANSFERS: SHOWER: TRANSFERS: SHOWER - STEP 1: Does the patient require assistance with shower transfers? Yes. TRANSFERS: SHOWER - STEP 2: Does the patient require the assistance of a helper? No. The patient only uses an assistive device, t akes more than reasonable time, OR there is a concern for safety when s/he performs transfers. TRANSFERS: SHOWER - SCORE: 6-CLAUDIO TRANSFERS: TUB: Activity did not occur on this shift TRANSFERS: TUB - SCORE: 0-UNK LOCOMOTION: WALK: Activity did not occur on this shift LOCOMOTION: WALK - SCORE: 0-UNK LOCOMOTION: WHEELCHAIR: Activity did not occur on this shift LOCOMOTION: WHEELCHAIR - SCORE: 0-UNK LOCOMOTION: STAIRS: Activity did not occur on this shift LOCOMOTION: STAIRS - SCORE: 0-UNK COMPREHENSION: COMPREHENSION - STEP 1: Does the patient require help to understand complex and abstract ideas (such as current events, finan gino, discharge planning, medical issues, relationships, etc)? No. COMPREHENSION - STEP 2: Does the patient need extra time, require an assistive device (such as glasses, hearing aids, or an a ugmentative communication system), OR does s/he have mild difficulty expressing complex and abstract ideas (including mild dysarthria or mild word-finding problems)? No. COMPREHENSION - SCORE: 7-IND EXPRESSION EXPRESSION: TYPE: Non-Vocal EXPRESSION - STEP 1: Does the patient require help expressing complex and abstract ideas (such as current events, finances , discharge planning, medical issues, relationships, etc)? No. EXPRESSION - STEP 2: Does the patient need extra time, require an assistive device (such as augmentive communication syste m or a communication board), OR does s/he have mild difficulty expressing complex and abstract ideas (including mild dysarthria or mild word-find problems)? No. EXPRESSION - SCORE: 7-IND SOCIAL INTERACTION: SOCIAL INTERACTION - STEP 1: Does the patient require a helper to interact with others in social and therapeutic situations? No. SOCIAL INTERACTION - STEP 2: Does the patient need extra time in social situations, OR does s/he interact with staff, other patien ts, and family members ONLY in structured environments, OR does s/he require medication for social in teraction? No. SOCIAL INTERACTION - SCORE: 7-IND PROBLEM SOLVING: PROBLEM SOLVING - STEP 1: Does the patient need help to solve complex problems such as managing a checking account or confronti ng interpersonal problems? No. PROBLEM SOLVING - STEP 2: Does the patient require extra time to make decisions or solve problems, OR does s/he have slight dif ficulty reading, initiating, or self-correcting in unfamiliar situations? No. PROBLEM SOLVING - SCORE: 7-IND MEMORY: MEMORY - STEP 1: Does the patient need help to remember frequently encountered people, daily routines, and executing r equests? No. MEMORY - STEP 2: Does the patient have slight difficulty recognizing frequently encountered people, daily routines, or executing requests without the need for repetition or using self-initiated or environmental cues to remember? No. MEMORY - SCORE: 7-IND SIGNATURE PANEL: The following modified sections: Eating - Score, Grooming - Score, Bathing - Score, Dressing - Upper Body - Score, Dressing - Lower Body - Score, Toileting - Score, Transfers: Bed, Chair, Wheelchair - S core, Transfers: Toilet - Score, Transfers: Shower - Score, Transfers: Tub - Score, Comprehension - S core, Expression - Score, Social Interaction - Score, Problem Solving - Score, Memory - Score were [e lectronically] signed by IHSAN Harrison on ThuMar 12 2018 13:48:23 T-0500 ([facility])
--- NOTE | 2018-03-12 15:14 | FAST ---
SHIFT START DATE/TIME: 03/12/2018 07:00 (CDT) SHIFT END DATE/TIME: 03/12/2018 19:00 (CDT) NAME JAIRO GREMAIN DATE OF : 1955 DATE OF ADMISSION: 02/24/2018 23:45 (CDT) PHONE: AGE: [address] [facility]# [id number] GENDER: Male ENCOUNTER PHYSICIAN: Dr. Edilson Fritz M.D. ADMISSION DIAGNOSIS: - Stroke 01 - Left Body (Right Brain) (01.1) Sub acute basal ganglia infarct. EATING: EATING - STEP 1: Does the patient require assistance when eating? Yes. EATING - STEP 2: Does the patient require the assistance of a helper? No, patient only requires an assistive device, O R s/he takes more than reasonable time to eat, OR there is a safety concern, OR s/he requires modifie d food consistency EATING - SCORE: 6-CLAUDIO GROOMING: Comb/brush hair Oral care Wash, rinse, and dry face Wash, rinse, and dry hands GROOMING - STEP 1: Does the patient require assistance when grooming? Yes. GROOMING - STEP 2: Does the patient require the assistance of a helper? No. The patient only requires an assistive devic e, OR takes more than reasonable time to groom, OR there is a concern for safety as the patient groom s GROOMING - SCORE: 6-CLAUDIO BATHING: Activity did not occur on this shift BATHING - SCORE: 0-UNK DRESSING - UPPER BODY: Activity did not occur on this shift ARTICLES SCORE Total number of steps: 0 DRESSING - UPPER BODY - SCORE: 0-UNK DRESSING - LOWER BODY: Activity did not occur on this shift ARTICLES SCORE Total number of steps: 0 DRESSING - LOWER BODY - SCORE: 0-UNK TOILETING: TOILETING - STEP 1: Does the patient require assistance with toileting? Yes. TOILETING - STEP 2: Does the patient require the assistance of a helper? Yes. TOILETING - STEP 3: How much assistance does the patient require from the helper? Only supervision TOILETING - SCORE: 5-SUP BLADDER MANAGEMENT: BLADDER MANAGEMENT - STEP 1: Does the patient control the bladder completely and intentionally without equipment or devices or med ications, and is always continent? No. BLADDER MANAGEMENT - STEP 2: Does the patient require the assistance of a helper? No, patient requires and independently uses an a ssistive device, such as a urinal, bedpan, bedside commode, catheter, absorbent pad, or collecting de vice BLADDER MANAGEMENT - SCORE: 6-CLAUDIO BLADDER MANAGEMENT - FREQUENCY OF ACCIDENTS: BLADDER MANAGEMENT(FA) - STEP 1: How many accidents has the patient had during the current shift? 0 BOWEL MANAGEMENT: BOWEL MANAGEMENT - STEP 1: Does the patient control bowels completely and intentionally without equipment devices or medications AND is always continent? No. BOWEL MANAGEMENT - STEP 2: Does the patient require the assistance of a helper? No, patient requires medication for control such as stool softeners, suppositories, laxatives, enemas, or OTC medications BOWEL MANAGEMENT - SCORE: 6-CLAUDIO BOWEL MANAGEMENT - FREQUENCY OF ACCIDENTS: BOWEL MANAGEMENT(FA) - STEP 1: How many accidents has the patient had during the current shift? 0 TRANSFERS: BED, CHAIR, WHEELCHAIR: TRANSFERS: BED, CHAIR, WHEELCHAIR - STEP 1: Does the patient require assistance with bed, chair, or wheelchair transfers? Yes. TRANSFERS: BED, CHAIR, WHEELCHAIR - STEP 2: Does the patient require the assistance of a helper? Yes. TRANSFERS: BED, CHAIR, WHEELCHAIR - STEP 3: How much assistance does the patient require from the helper? Only supervision TRANSFERS: BED, CHAIR, WHEELCHAIR - SCORE: 5-SUP TRANSFERS: TOILET: TRANSFERS: TOILET - STEP 1: Does the patient require assistance with toilet transfers? Yes. TRANSFERS: TOILET - STEP 2: Does the patient require the assistance of a helper? Yes. TRANSFERS: TOILET - STEP 3: How much assistance does the patient require from the helper? Only supervision, cuing, coaxing, OR he lp to set out transfer equipment or to lock brakes and/or lift foot rests TRANSFERS: TOILET - SCORE: 5-SUP TRANSFERS: SHOWER: Activity did not occur on this shift TRANSFERS: SHOWER - SCORE: 0-UNK TRANSFERS: TUB: Activity did not occur on this shift TRANSFERS: TUB - SCORE: 0-UNK LOCOMOTION: WALK: Activity did not occur on this shift LOCOMOTION: WALK - SCORE: 0-UNK LOCOMOTION: WHEELCHAIR: LOCOMOTION: WHEELCHAIR - STEP 1: Does the patient need help to go 150 feet in a wheelchair? Yes. LOCOMOTION: WHEELCHAIR - STEP 2: How much assistance does the patient need from the helper? Only supervision, cuing, or coaxing LOCOMOTION: WHEELCHAIR - SCORE: 5-SUP COMPREHENSION: COMPREHENSION: TYPE: Both COMPREHENSION - STEP 1: Does the patient require help to understand complex and abstract ideas (such as current events, finan gino, discharge planning, medical issues, relationships, etc)? No. COMPREHENSION - STEP 2: Does the patient need extra time, require an assistive device (such as glasses, hearing aids, or an a ugmentative communication system), OR does s/he have mild difficulty expressing complex and abstract ideas (including mild dysarthria or mild word-finding problems)? Yes. COMPREHENSION - SCORE: 6-CLAUDIO EXPRESSION EXPRESSION: TYPE: Both EXPRESSION - STEP 1: Does the patient require help expressing complex and abstract ideas (such as current events, finances , discharge planning, medical issues, relationships, etc)? No. EXPRESSION - STEP 2: Does the patient need extra time, require an assistive device (such as augmentive communication syste m or a communication board), OR does s/he have mild difficulty expressing complex and abstract ideas (including mild dysarthria or mild word-find problems)? Yes. EXPRESSION - SCORE: 6-CLAUDIO SOCIAL INTERACTION: SOCIAL INTERACTION - STEP 1: Does the patient require a helper to interact with others in social and therapeutic situations? No. SOCIAL INTERACTION - STEP 2: Does the patient need extra time in social situations, OR does s/he interact with staff, other patien ts, and family members ONLY in structured environments, OR does s/he require medication for social in teraction? No. SOCIAL INTERACTION - SCORE: 7-IND PROBLEM SOLVING: PROBLEM SOLVING - STEP 1: Does the patient need help to solve complex problems such as managing a checking account or confronti ng interpersonal problems? Yes. PROBLEM SOLVING - STEP 2: Does the patient solve basic routine problems half or more of the time? Yes. PROBLEM SOLVING - STEP 3: How often does the patient need help to solve basic routine problems? Less than 10% of the time PROBLEM SOLVING - SCORE: 5-SUP MEMORY: MEMORY - STEP 1: Does the patient need help to remember frequently encountered people, daily routines, and executing r equests? No. MEMORY - STEP 2: Does the patient have slight difficulty recognizing frequently encountered people, daily routines, or executing requests without the need for repetition or using self-initiated or environmental cues to remember? Yes. MEMORY - SCORE: 6-CLAUDIO SIGNATURE PANEL: The following modified sections: Eating - Score, Grooming - Score, Bathing - Score, Dressing - Upper Body - Score, Dressing - Lower Body - Score, Toileting - Score, Bladder Management - Score, Bowel Man agement - Score, Transfers: Bed, Chair, Wheelchair - Score, Transfers: Toilet - Score, Transfers: Luz Maria wer - Score, Transfers: Tub - Score, Locomotion: Walk - Score, Locomotion: Wheelchair - Score, Compre hension - Score, Expression - Score, Social Interaction - Score, Problem Solving - Score, Memory - Sc ore were [electronically] signed by Briseyda GuillermoN.Rose on ThuMar 12 2018 14:15:50 T-0500 ([place] Day[place])
--- NOTE | 2018-03-15 15:38 | FAST ---
ENCOUNTER DATE AND TIME: 03/12/2018 08:00 (CDT) NAME JAIRO GERMAIN DATE OF : 1955 DATE OF ADMISSION: 02/24/2018 23:45 (CDT) PHONE: AGE: 62 [facility]# [id number] GENDER: Male ENCOUNTER PHYSICIAN: Dr. Edilson Fritz M.D. ADMISSION DIAGNOSIS: - Stroke 01 - Left Body (Right Brain) (01.1) Sub acute basal ganglia infarct. EATING: Activity did not occur on this shift EATING - SCORE: 0-UNK GROOMING: Activity did not occur on this shift GROOMING - SCORE: 0-UNK BATHING: Activity did not occur on this shift BATHING - SCORE: 0-UNK DRESSING - UPPER BODY: Activity did not occur on this shift Patient is not dressing in public clothing ARTICLES SCORE Total number of steps: 0 DRESSING - UPPER BODY - SCORE: 0-UNK DRESSING - LOWER BODY: Activity did not occur on this shift Patient is not dressing in public clothing ARTICLES SCORE Total number of steps: 0 DRESSING - LOWER BODY - SCORE: 0-UNK TOILETING: Activity did not occur on this shift TOILETING - SCORE: 0-UNK BLADDER MANAGEMENT: Activity did not occur on this shift BLADDER MANAGEMENT - SCORE: 7-IND BOWEL MANAGEMENT: Activity did not occur on this shift BOWEL MANAGEMENT - SCORE: 7-IND TRANSFERS: BED, CHAIR, WHEELCHAIR: TRANSFERS: BED, CHAIR, WHEELCHAIR - STEP 1: Does the patient require assistance with bed, chair, or wheelchair transfers? Yes. TRANSFERS: BED, CHAIR, WHEELCHAIR - STEP 2: Does the patient require the assistance of a helper? No. Patient only requires an assistive device fo r bed, chair, wheelchair transfers such as a sliding board, grab bar, or brace, OR s/he takes more th an reasonable time, OR there is a safety concern when s/he performs the transfers TRANSFERS: BED, CHAIR, WHEELCHAIR - SCORE: 6-CLAUDIO TRANSFERS: TOILET: Activity did not occur on this shift TRANSFERS: TOILET - SCORE: 0-UNK TRANSFERS: SHOWER: Activity did not occur on this shift TRANSFERS: SHOWER - SCORE: 0-UNK TRANSFERS: TUB: Activity did not occur on this shift TRANSFERS: TUB - SCORE: 0-UNK LOCOMOTION: WALK: LOCOMOTION: WALK - STEP 1: Does the patient need help to walk 150 feet? Yes. LOCOMOTION: WALK - STEP 2: How much assistance does the patient require to walk a minimum of 150 feet? Only supervision, cuing, or coaxing LOCOMOTION: WALK - SCORE: 5-SUP LOCOMOTION: WHEELCHAIR: LOCOMOTION: WHEELCHAIR - STEP 1: Does the patient need help to go 150 feet in a wheelchair? No. LOCOMOTION: WHEELCHAIR - SCORE: 6-CLAUDIO LOCOMOTION: STAIRS: Activity did not occur on this shift LOCOMOTION: STAIRS - SCORE: 0-UNK COMPREHENSION: COMPREHENSION - SCORE: 0-UNK EXPRESSION EXPRESSION - SCORE: 0-UNK SOCIAL INTERACTION: SOCIAL INTERACTION - SCORE: 0-UNK PROBLEM SOLVING: PROBLEM SOLVING - SCORE: 0-UNK MEMORY: MEMORY - SCORE: 0-UNK SIGNATURE PANEL: The following modified sections: Transfers: Bed, Chair, Wheelchair - Score, Transfers: Toilet - Score , Locomotion: Walk - Score, Locomotion: Wheelchair - Score, Locomotion: Stairs - Score were [aziza lozano] signed by Maurisio Estrella PTA on ThuMar 15 2018 14:39:46 GMT-0500 (Central Daylight Time)
--- NOTE | 2018-04-09 15:28 | R.DS ---
FACILITY [facility] MR# [id number] NAME JAIRO GERMAIN ADDRESS [address] [facility] [place] [address] PHONE DATE OF 1955 AGE 62 SSN# [id number] GENDER Male DEXTERITY Right-handed MARITAL STATUS RACE White ENCOUNTER PHYSICIAN Dr. Edilson Fritz M.D. REFERRING DOCTOR Chidi Allred REFERRING FACILITY [facility] DISCHARGE DIAGNOSIS: - Stroke 01 - Left Body (Right Brain) (01.1) Sub acute basal ganglia infarct. DISCHARGE COMORBIDITIES: - N/A CVA, HTN, bilateral knee pain, cervical myelopathy w/ cervical radiculopathy, hyperlipidemia, bactere miguel, BPH DATE OF ADMISSION 02/24/2018 23:45 (CDT) MEDICATION ALLERGIES: No Known Drug Allergies (NKDA) ENVIRONMENTAL ALLERGIES: None Known - Substance Allergies None Known - Other Allergies None Known NURSING: - Shower allowing shower - Bladder care per protocol - Skin care per protocol PRECAUTIONS: - Fall Precaution Bed alarm TABS alarm Wheel chair alarm Critical cord compression c-spine ACTIVITIES OOB only with supervision THERAPIES: - Occupational Therapy Evaluate and Treat Cognitive Retraining Visual Perceptual Training - Speech Therapy Cognitive Training Memory Strategies Expressive Language Skills Receptive Language Skills Speech Intelligibility Training - Physical Therapy Evaluate and Treat HISTORY OF PRESENT ILLNESS: Pt. is a 62 yo Right-handed white male.On 02/19/2018 Pt. presented to [facility] with sudden onset of left-side weakness.On 02/19/2018 he was admitted to [facility] with diagnosis Sub acute basal ganglia infarct.His impairment category is Stroke 01 - Left Emir dy (Right Brain) (01.1).Pre-morbidly, Pt. was independent/mod-I in Sphincter Control, Communication, and Social Cognition; and he had good Sphincter Control.Currently, he has deficits of Transfers Contr ol, Balance, Self-Care, Locomotion, Endurance, and Safety Awareness.Pt. is now referred to [facility] for acute in-patient rehabilitation in order to maximize patient's functional independence in activities of daily living, strength, ROM, and mobility.- Rehab Goal Patient has realistic goal of being discharged at assistance level 6-Nate to reside at Home with Fam evelyne/Relatives. HOSPITAL COURSE: On 03/02/2018 the following precautions were added for the patient: Fall Precaution - Critical cord compression c-spine. On 02/24/2018 the following precautions were added for the patient: Fall Precaution - Bed alarm, Fall Precaution - TABS alarm, Fall Precaution - Critical cord compression c-spine, and Fall Precaution - Wheel chair alarm. On 02/25/2018 the following precautions were added for the patient: Fall Precaution - Critical cord compression c-spine. On 03/01/2018 the following precautions were removed for the patient: Fall Precaution - Critical cor d compression c-spine. The following precautions were added for the patient: Fall Precaution - TABS alarm, Fall Precaution - Bed alarm, and Fall Precaution - Wheel chair alarm. The following precautions were removed for the patient: Fall Precaution - Wheel chair alarm, Fall Pre caution - Critical cord compression c-spine, Fall Precaution - Critical cord compression c-spine, Fa ll Precaution - Bed alarm, Fall Precaution - TABS alarm, Fall Precaution - Wheel chair alarm, Fall Precaution - TABS alarm, and Fall Precaution - Bed alarm. On 02/25/2018 the following precautions were added for the patient: Weight Bearing Precaution - WBAT left LE. On 03/01/2018 the following precautions were removed for the patient: Weight Bearing Precaution - WB AT left LE. The following precautions were added for the patient: Weight Bearing Precaution - WBAT left LE. On 03/02/2018 the following precautions were removed for the patient: Weight Bearing Precaution - WBA T left LE. The following precautions were added for the patient: Weight Bearing Precaution - WBAT left LE. DIET - LIQUID TEXTURE: On 02/24/2018 Pt was upgraded to Regular Diet - Liquid Texture. DIET - SOLID TEXTURE: On 02/24/2018 Pt was upgraded to Regular Diet - Solid Texture. DIET TYPE: On 02/24/2018 Pt was changed to Heart healthy Diet Type. FALL PRECAUTION: TUBE FEED: On 02/24/2018 Pt was changed to N/A Tube Feed. WEIGHT BEARING PRECAUTION: DISCHARGE PHYSICAL EXAM - Gen Alert and awake Lying in bed No apparent distress Oriented to: person, time, and place - Skin No skin breakdown. Normacephalic - Eyes No abnormalities - ENMT No abnormalities - Neck No abnormalities - CVS RRR - Chest Clear - Abd Soft - GI nondistended Deferred - No abnormalities - Ext No significant edema - MSK 4+/5 weakness in left upper and lower extremity - Neuro 4/5 strength left upper and lower extremities. - Psych No abnormalities FUNCTIONAL STATUS: - Self-Care A. Eating 5-sup 6-Nate B. Grooming 5-sup 6-Nate C. Bathing 5-sup 6-Nate D. Dressing - Upper 5-sup 6-Nate E. Dressing - Lower 5-sup 6-Nate F. Toileting 4-Na 6-Nate - Sphincter Control G: Bladder control 7-Ind 7-Ind H: Bowel control 7-Ind 7-Ind - Transfers Control I. Bed/Chair/Wheelchair 4-Na 6-Nate J. Toilet 4-Na 6-Nate K. Tub/Shower 0-ADNO 6-Nate - Locomotion L. Walk/Wheelchair (B) 4-Na 5-sup L. Walk/Wheelchair (B) 4-Na 6-Nate M. Stairs 0-ADNO 0-ADNO - Communication N. Comprehension (B) 6-Nate 6-Nate O. Expression (B) 6-Nate 6-Nate - Social Cognition P. Social Interaction 6-Nate 6-Nate Q. Problem Solving 6-Nate 6-Nate R. Memory 6-Nate 6-Nate - Endurance Fair - Balance Poor - Safety Awareness Fair DISCHARGE INSTRUCTIONS: - N/A Aspirin, Plavix and Lovenox. DISCHARGE PLAN, FOLLOW UP CARE PROVISIONS: - Estimated Length of Stay (days) 17. - Consensus on plan Discharge plan has been discussed with primary caregiver. Patient/Family is in agreement with the babs n. Primary caregiver is in agreement with the plan. - Patient/Family Goals Return home with assistance. - Planned Living Setting Upon Discharge Home, to live with Family/Relatives. SIGNATURE PANEL: (CDT)
== END 2018-03-12 14:15 | DRG 57 ==
LOC: 5TH 23:40
PROVIDERS: ADMIT Psychiatry & Neurology Neurology with Special Qualifications in Child Neurology; ATTEND Psychiatry & Neurology Neurology with Special Qualifications in Child Neurology
DX: I69.354 Hemiplegia and hemiparesis following cerebral infarction affecting left non-dominant side (principal); I10 Essential (primary) hypertension; E78.5 Hyperlipidemia, unspecified
CPT/HCPCS: 36415; 80048; 81001; 82040; 83735; 84134; 85025; 87086; 87088; 97542; J0696; J1650

== ENCOUNTER 2020-08-05 09:13 | Emergency (ER) | payer OTHER ==
[2020-08-05] MEDS ORDERED: ETOMIDATE 20 MG/10 ML VIAL IV ONE (09:14)
[2020-08-05] MEDS ORDERED: ROCURONIUM 50 MG/5 ML VIAL IV ONE (09:14)
[2020-08-05] MEDS ORDERED: NA CHLORIDE 0.9% 1,000 ML ONE (09:30)
[2020-08-05] MEDS ORDERED: RSI MEDICATION KIT IV ONE (09:30)
[2020-08-05 09:54] LABS: Absolute Lymphocytes (CBC) 0.8 K/uL (0.7-4.9); Basophils % 0.4 % (0-1.3); Hematocrit 31.5 % (39.6-49.0); Lymphocytes % 16.2 % (15.3-44.8); MPV 10.1 fL (7.6-11.3); RBC Red Blood Cell Count 3.57 M/uL (4.33-5.43)
[2020-08-05 09:56] LABS: Protime INR 1.03
[2020-08-05] MEDS ORDERED: FENTANYL/NS PCA 500 MCG/50 ML SYR IV PRN ×2 (10:17→10:20)
--- NOTE | 2020-08-05 10:17 | RAD REPORT ---
EXAM DESCRIPTION: RADChest Single View08/05/2020 10:00 am CLINICAL HISTORY: Chest pain COMPARISON: 2018 FINDINGS: Endotracheal tube has its tip well above the ruben. Nasogastric tube is present the stoma ch. Mild left basilar opacity may represent atelectasis or infiltrate Heart is mildly enlarged.
--- NOTE | 2020-08-05 10:26 | RAD REPORT ---
EXAM DESCRIPTION: CT - Head Brain Wo Cont - 08/05/2020 10:15 am CLINICAL HISTORY: Alteration of awareness/confusion COMPARISON: None TECHNIQUE: Computed axial tomography of the head was obtained. IV contrast was not requested. All CT scans are performed using dose optimization technique as appropriate and may include automated exposure control or mA/KV adjustment according to patient size. FINDINGS: An intracranial bleed is not seen . The ventricles are normal in caliber. No extra-axial fluid collection is noted. Old lacunar infarcts involve the left thalamus and right basal ganglia. Fluid within the sinuses/ mastoids is not seen. Small calcific density within the frontal scalp is un changed IMPRESSION: No acute intracranial abnormality is seen. If patient's symptoms persist MRI of the bra in would be recommended.
--- NOTE | 2020-08-05 10:28 | ER ---
Nurse's Notes [facility] Name: Raphael Hoyos Age: 64 yrs Sex: Male : 1955 Arrival Date: 08/05/2020 Time: 09:15 Bed 4 Private MD: Diagnosis: Symptomatic bradycardia;Altered Mental Status;Hypotension;Intubated Presentation: 08/05 09:15 Chief complaint: EMS states: Patient went up to nurses desk at half-way saying that ss he did not feel well. Upon EMS arrival it was discovered that patient's pulse was in the 30's and BP 50/30. EMS began external pacing after 0.5 mg Atropine had no effect. Pt was complaining of discomfort so they administered 2.5 mg Versed en route. Pt became less responsive after medication administration. Initial Sepsis Screen:. Risk Assessment: Do you want to hurt yourself or someone else? Patient reports no desire to harm self or others. Onset of symptoms was August 05, 2020. Care prior to arrival: Medication(s) given: 1000 mL NS bolus IV initiated. 20 GA, in the left forearm. 09:15 Method Of Arrival: EMS: [facility] 09:15 Acuity: DANIELA 1 ss 10:17 Coronavirus screen: At this time, the client does not indicate any symptoms associated hb with coronavirus-19. Ebola Screen: No symptoms or risks identified at this time. Initial Sepsis Screen: Does the patient meet any 2 criteria? Altered Mental Status. Yes Does the patient have a suspected source of infection? No. Patient's initial sepsis screen is negative. Historical: - Allergies: 09:52 NKA; ss - PMHx: 09:52 CVA; Hypertension; TIA; GERD; Diabetes - IDDM; ss - Immunization history:: Adult Immunizations unknown. - Social history:: Smoking status: unknown. Screenin:16 Abuse screen: unable to assess. Nutritional screening: No deficits noted. Tuberculosis hb screening: No symptoms or risk factors identified. Fall Risk Total Palacios Fall Scale indicates High Risk Score (45 or more points). Fall prevention measures have been instituted. Side Rails Up X 2 Frequent Obs/Assessments Occuring. Assessment: 09:16 General: Appears distressed, Behavior is unresponsive. Pain: Unable to use pain scale. hb Patient is unresponsive. Neuro: Level of Consciousness is unresponsive, Pupils are PERRLA. Cardiovascular: Patient's skin is warm and dry. Rhythm is Paolo, externally paced. Respiratory: Respiratory effort is labored, Respiratory pattern is hypoventilation. GI: No signs and/or symptoms were reported involving the gastrointestinal system. : No signs and/or symptoms were reported regarding the genitourinary system. EENT: No signs and/or symptoms were reported regarding the EENT system. Derm: Skin is pink, warm \T\ dry. Musculoskeletal: No signs and/or symptoms reported regarding the musculoskeletal system. 10:01 Reassessment: Pt to CT via stretcher with Natasha RN and Zoe RT. hb 10:[address]: [address] hb 10:55 Reassessment: Report given to RADHAMES Michel at [facility]. ph 11:25 Reassessment: No changes from previously documented assessment. PT remains intubated ph and externally paced, Report given to [employer], pt prepared for transfer. Vital Signs: 09:15 BP 120 / 96; Pulse 34; Resp 8; Pulse Ox 92% on 2 lpm NC; ss 10:10 Weight 120 kg; hb 10:37 BP 187 / 27; Pulse 73; Resp 14; Temp 97.0; Pulse Ox 97% on 40% FiO2 ETT vent; ph 11:00 BP 106 / 58; Pulse 72; Resp 18; Pulse Ox 98% on ETT vent; ph 11:27 BP 100 / 73; Pulse 73; Resp 14; Temp 97.2; Pulse Ox 99% on 40% FiO2 ETT vent; ph ED Course: 09:15 Patient arrived in ED. ps1 09:16 electronic device monitor on. Pulse ox on. NIBP on. hb 09:16 Maintain EMS IV. Dressing intact. Good blood return noted. Site clean \T\ dry. Gauge \T\ ss site: 20 gauge in L FA. 09:23 EKG done, by ED staff, reviewed by Parminder Epps MD. dh3 09:23 Assisted provider with intubation using 8.0 mm ETT via oral route. ET tube secured at ss 23cm at the lips. Set up intubation tray. Intubated by Parminder Epps MD Placement verified by CO2 detector w/ + color change, auscultating bilateral breath sounds, Patient tolerated sedated. 09:27 Parminder Epps MD is Attending Physician. ps1 09:35 Wang cath inserted, using sterile technique, 16 Fr., by ED staff, balloon inflated, to hb gravity drainage, urine specimen collected. returned wily urine. Patient tolerated well. 09:35 NGT: inserted 16 Fr. other OGT verified return of gastric contents, to intermittent hb suction. Returned gastric contents. Amount of gastric contents removed by suction 100ml. Patient tolerated well. 09:49 Triage completed. ss 09:51 initiated a transfer with MONROE Gu from the [facility]. eb 09:52 Arm band placed on right wrist. ss 09:59 XRAY Chest (1 view) In Process Unspecified. EDMS 10:15 CT Head Brain wo Cont In Process Unspecified. EDMS 10:16 Patient has correct armband on for positive identification. Placed in gown. Bed in low hb position. Call light in reach. Side rails up X2. 10:17 connected the kiln stacker communication electronic technician for [facility] with Dr. Epps for patient eb transfer consultation. 10:21 administrative approval given by MORNOE Gu/ patient has been accepted to [facility] eb 8 Marie Gold 823/ [facility] has accepted the patient in transfer/ report to be called to [phone]. 10:23 [facility] [employer] [facility] called they will check the weather and call us back. eb 10:31 Inserted saline lock: 20 gauge in right forearm, using aseptic technique. hb 10:32 [employer] [facility] are able to fly ETA 22 minutes. eb 10:33 Natasha Lopez, RN is Primary Nurse. ph 11:31 Patient transferred, IV remains in place. ph Administered Medications: 09:22 Drug: Etomidate 20 mg Route: IVP; Site: left forearm; ss 11:32 Follow up: Response: No adverse reaction; Patient is sedated ph 09:22 Drug: Rocuronium 100 mg {Note: administerd by Natasha Lopez RN.} Route: IVP; Site: ss left forearm; 11:31 Follow up: Response: No adverse reaction; Patient is sedated ph 10:29 Drug: fentaNYL (PF) 50 mcg Route: IVP; Site: left antecubital; hb 11:32 Follow up: Response: No adverse reaction ph 10:30 Drug: Dopamine drip 2 mcg/kg/min - (DOPamine 400 mg, D5W 250 ml) Route: IV; Rate: hb calculated rate; Site: left antecubital; 11:32 Follow up: Response: No adverse reaction; IV Status: Infusion continued upon transfer ph 10:34 Drug: Rocephin 1 grams Route: IV; Rate: bolus; Site: right antecubital; hb 11:33 Follow up: Response: No adverse reaction; IV Status: Completed infusion ph 10:46 Not Given (Other Intervention Used): Rocuronium 10 mg IVP once ss 11:25 Not Given (Other Intervention Used): fentaNYL (PF) 1 mcg/kg/h IV at calculated rate ph once; RASS on ADMIN: Combtv4, Very Agttd3, Agttd2, Rstlss1, AlertClm0, Drwsy-1, Lt Sdtn-2, Mod Sdtn-3, Dp Sdtn-4, UnArsble-5 Output: 10:09 Urine: 1400ml (Wang); Total: 1400ml. hb Ventilator: 10:25 Fi02: 40%; Rate: 144min; T.V.: 580ml; Peep: 5cm; ET tube: 8 mm (Oral); hb Outcome: 10:28 ER care complete, transfer ordered by . [facility] 11:28 Transferred by helicopter to [facility], Transfer form completed. ph X-rays sent w/ patient. 11:28 critical 11:34 Patient left the ED. ph Signatures: Dispatcher [employer] EDAZ Gabriella Giron RN RN Natasha Lopez RN RN Suellen Guo RN RN Odilia Orozco [facility] Parminder Epps MD MD [facility] Amaris Francisco Corrections: (The following items were deleted from the chart) 09:59 09:53 Wang cath inserted, using sterile technique, 16 Fr., by internal controls manager, balloon ss inflated, to gravity drainage, Patient tolerated sedated ss 09:59 09:53 18 F OG tube inserted. Gastric contents returned ss ss 10:28 10:10 111.13 kg; hb hb 10:53 10:25 FiO2 40%, Rate 144 min, T.V. 580 ml, Peep 5 cm, ET 84 mm , hb hb
--- NOTE | 2020-08-05 10:28 | EDPHYS ---
Physician Documentation [facility] Name: Raphael Hoyos Age: 64 yrs Sex: Male : 1955 Arrival Date: 08/05/2020 Time: 09:15 Bed 4 Private MD: ED Physician Parminder Epps HPI: 08/05 09:32 This 64 yrs old Male presents to ER via Unassigned with complaints of ps1 unresponsive. 09:32 Patient BIBEMS 2/2 symptomatic bradycardia. Transcutaneous pacing and patient is ps1 unresponsive. HR 35 when pacing disconnected. Patient emergently intubated 2/2 being unresponsive and hypoxia in 80's. 2.5 of versed given by EMS SENIOR DIRECTOR. Per chart review, hx of CVA with right sided weakness. Historical: - Allergies: 09:52 NKA; ss - PMHx: 09:52 CVA; Hypertension; TIA; GERD; Diabetes - IDDM; ss - Immunization history:: Adult Immunizations unknown. - Social history:: Smoking status: unknown. ROS: 09:32 Unable to obtain ROS due to comatose state. ps1 Exam: 09:32 Head/Face: Normocephalic, atraumatic. ps1 09:32 Constitutional: The patient appears in obvious distress, obviously ill, unresponsive 09:32 Eyes: Pupils: equal, round, and reactive to light and accomodation, Extraocular movements: 09:32 Chest/axilla: Inspection: normal. 09:32 Cardiovascular: Rate: bradycardic, Rhythm: irregular. 09:32 Respiratory: Respirations: shallow respirations, that is moderate. 09:32 Abdomen/GI: Inspection: abdomen appears normal, Bowel sounds: normal. 09:32 Neuro: Orientation: unable to test, the patient is intubated. Vital Signs: 09:15 BP 120 / 96; Pulse 34; Resp 8; Pulse Ox 92% on 2 lpm NC; ss 10:10 Weight 120 kg; hb 10:37 BP 187 / 27; Pulse 73; Resp 14; Temp 97.0; Pulse Ox 97% on 40% FiO2 ETT vent; ph 11:00 BP 106 / 58; Pulse 72; Resp 18; Pulse Ox 98% on ETT vent; ph 11:27 BP 100 / 73; Pulse 73; Resp 14; Temp 97.2; Pulse Ox 99% on 40% FiO2 ETT vent; ph Ventilator: 10:25 Fi02: 40%; Rate: 144min; T.V.: 580ml; Peep: 5cm; ET tube: 8 mm (Oral); hb Procedures: 10:28 Intubation: Ventilated with 100% NRB prior to procedure. Intubated orally using # 4 ps1 Fadumo blade with 8.0 mm ETT. was successful on first attempt. Ventilated with ventilator. Tube secured with ETT rocha Placement verified by CXR, CO2 detector with (+) color change, auscultating bilateral breath sounds, Patient tolerated well. Pacing: Patient was paced with an external pacer Using demand mode, Rate set at 70 in beats/min. Current set at 70 milliamps. Capture was noted. MDM: 09:46 Patient medically screened. ps1 08/05 09:30 Order name: Basic Metabolic Panel; Complete Time: 11:24 ps1 08/05 09:30 Order name: CBC with Diff; Complete Time: 09:56 ps1 08/05 09:30 Order name: LFT's; Complete Time: 11:24 ps1 08/05 09:30 Order name: Magnesium; Complete Time: 11:24 ps1 08/05 09:30 Order name: NT PRO-BNP; Complete Time: 11:24 ps1 08/05 09:30 Order name: PT-INR; Complete Time: 10:02 ps1 08/05 09:30 Order name: Troponin (emerg Dept Use Only); Complete Time: 11:24 ps1 08/05 09:30 Order name: XRAY Chest (1 view); Complete Time: 10:19 ps1 08/05 09:46 Order name: CT Head Brain wo Cont; Complete Time: 10:31 ps1 08/05 10:44 Order name: Urine Dipstick--Ancillary (enter results); Complete Time: 11:24 eb 08/05 09:30 Order name: EKG; Complete Time: 09:31 ps1 08/05 09:30 Order name: Cardiac monitoring; Complete Time: 10:33 ps1 08/05 09:30 Order name: EKG - Nurse/Tech; Complete Time: 10:34 ps1 08/05 09:30 Order name: IV Saline Lock; Complete Time: 10:34 ps1 08/05 09:30 Order name: Labs collected and sent; Complete Time: 10:34 ps1 08/05 09:30 Order name: O2 Per Protocol; Complete Time: 10:34 ps1 08/05 09:30 Order name: O2 Sat Monitoring; Complete Time: 10:34 ps1 08/05 09:32 Order name: Urine Dipstick-Ancillary (obtain specimen); Complete Time: 10:44 ps1 08/05 10:19 Order name: Labs - recollect needed: green top to verify K+; Complete Time: 10:30 ss Administered Medications: 09:22 Drug: Etomidate 20 mg Route: IVP; Site: left forearm; ss 11:32 Follow up: Response: No adverse reaction; Patient is sedated ph 09:22 Drug: Rocuronium 100 mg {Note: administerd by Natasha Lopez RN.} Route: IVP; Site: ss left forearm; 11:31 Follow up: Response: No adverse reaction; Patient is sedated ph 10:29 Drug: fentaNYL (PF) 50 mcg Route: IVP; Site: left antecubital; hb 11:32 Follow up: Response: No adverse reaction ph 10:30 Drug: Dopamine drip 2 mcg/kg/min - (DOPamine 400 mg, D5W 250 ml) Route: IV; Rate: hb calculated rate; Site: left antecubital; 11:32 Follow up: Response: No adverse reaction; IV Status: Infusion continued upon transfer ph 10:34 Drug: Rocephin 1 grams Route: IV; Rate: bolus; Site: right antecubital; hb 11:33 Follow up: Response: No adverse reaction; IV Status: Completed infusion ph 10:46 Not Given (Other Intervention Used): Rocuronium 10 mg IVP once ss 11:25 Not Given (Other Intervention Used): fentaNYL (PF) 1 mcg/kg/h IV at calculated rate ph once; RASS on ADMIN: Combtv4, Very Agttd3, Agttd2, Rstlss1, AlertClm0, Drwsy-1, Lt Sdtn-2, Mod Sdtn-3, Dp Sdtn-4, UnArsble-5 Disposition: 10:28 Critical Care: Critical Care:. ps1 Disposition: 08/05/20 10:[address] [facility]. Diagnosis are Symptomatic bradycardia, Altered Mental Status, Hypotension, Intubated. - Reason for transfer: Higher level of care. - Accepting physician is Bandelai, S. - Condition is Critical. - Problem is new. - Symptoms have improved. Critical care time excluding procedures: 10:28 Critical care time: Bedside Care: 30 minutes, Consultation: 5 minutes, Interpretation ps1 of results, imaging, EMS report: 15 minutes. Total time: 50 minutes Signatures: Dispatcher [employer] EDMS Gabriella Giron RN RN Natasha Lopez RN RN Suellen Guo RN RN Parminder Epps MD MD ps1 Corrections: (The following items were deleted from the chart) 10:02 09:32 Patient BIBEMS 2/2 symptomatic bradycardia. Transcutaneous pacing and patient is ps1 unresponsive. HR 35 when pacing disconnected. Patient emergently intubated 2/2 being unresponsive and hypoxia in 80's. 2.5 of versed given by EMS SENIOR DIRECTOR. . ps1 11:34 10:28 08/05/2020 10:[address] [facility]. ph Diagnosis is Symptomatic bradycardia; Altered Mental Status; Hypotension; Intubated. Reason for transfer: Higher level of care. Accepting physician is Sebastián Coy Condition is Critical. Problem is new. Symptoms have improved. ps1
[2020-08-05] MEDS ORDERED: FENTANYL CITR 100 MCG/2 ML ONE (10:37)
[2020-08-05] MEDS ORDERED: DOPAMINE/D5W 400 MG/250 ML BAG IV ONE (10:38)
[2020-08-05] MEDS ORDERED: CEFTRIAXONE/SWI 1gm 1 GM/10 ML SYR ONE (10:48)
[2020-08-05] MEDS ORDERED: FENTANYL/NS PCA 500 MCG/50 ML SYR IV ONE (10:49)
[2020-08-05 10:59] LABS: ALT/SGPT 99 U/L (12-78); AST/SGOT 39 U/L (15-37); Albumin 3.3 g/dL (3.4-5.0); Alkaline Phosphatase 103 U/L (45-117); BUN Blood Urea Nitrogen 41 mg/dL (7-18); Bicarbonate 25 mmol/L (21-32); Bilirubin Direct 0.2 mg/dL (0-0.2); Bilirubin Total 0.9 mg/dL (0.2-1.0); Glucose Level 157 mg/dL (74-106); Magnesium 2.4 mg/dL (1.8-2.4); NT PRO-BNP 55 pg/mL (<125); Protein, Total 7.4 g/dL (6.4-8.2); Sodium Level 144 mmol/L (136-145); Troponin (Emerg Dept Use Only) < 0.02 ng/mL (0.0-0.045)
[2020-08-05 11:00] LABS: Urine Blood NEGATIVE (NEG); Urine Glucose TRACE (NEG); Urine Protein 2+ (NEG)
[2020-08-05 11:00] LABS: Potassium 5.9 mmol/L (3.5-5.1)
[2020-08-05 11:49] VITALS: BP 100/73; TEMP 97.2; O2SAT 99
--- NOTE | 2020-08-06 07:43 | EKG ---
Test Date: 2020-08-05 Test Time: 09:23:32 Lamination Spinner: GLENYS MEASUREMENT RESULTS: Intervals: Rate: 37 CA: 264 QRSD: 100 QT: 528 QTc: 414 [place]: P: CA: 264 QRS: 62 T: 77 INTERPRETIVE STATEMENTS: Marked sinus bradycardia with 1st degree AV block Early repolarization Abnormal ECG Compared to ECG 02/19/2018 17:06:36 First degree AV block now present Early repolarization now present Sinus rhythm no longer present T-wave abnormality no longer present Prolonged QT interval no longer present Electronically Signed On 08-06-20 07:42:52 CDT by Manuel Johnson
== END 2020-08-05 11:34 | disposition short-term general hospital (02) ==
LOC: ER 09:13
PROC: 0BH17EZ Insertion of Endotracheal Airway into Trachea, Via Natural or Artificial Opening (ICD-10-PCS; principal; 2020-08-05)
PROC: 5A1935Z Respiratory Ventilation, Less than 24 Consecutive Hours (ICD-10-PCS; 2020-08-05)
DX: I95.9 Hypotension, unspecified (principal); R41.82 Altered mental status, unspecified; I10 Essential (primary) hypertension; I69.351 Hemiplegia and hemiparesis following cerebral infarction affecting right dominant side
CPT/HCPCS: 96365; 96368; 93005; 85025; 80048; 36415; 83735; 85610; 80076; 81003; 84484; 83880; 70450; 71045; 94002; 31500; 51702; 96375; 92953; 99291; J3010; J0696; J1265; J7030

== ENCOUNTER 2020-09-12 15:58 | Observation (INO) | payer OTHER ==
--- OUTSIDE RECORDS SUMMARY | 2020-09-12 16:00 | XMS REPORT | Clinical Summary ---
:1955 Author Organization [facility] Address [address] [place] [address] Care Team Providers Name Role Phone Unavailable Primary Care Provider Unavailable Allergies No Known Allergies Medications Medication Sig Dispensed Refills Start Date End Date Status metoprolol Take 0.5 30 tablet 2 08/10/2020 Active tartrate tablets (50 1 (LOPRESSOR) 100 MG mg total) by tablet mouth 2 (two) times daily for 90 days. Tradjenta 5 mg Tab Take 1 30 tablet 2 08/10/2020 Active tablet (5 mg 1 total) by mouth daily for 90 days. atorvastatin Take 1 30 tablet 2 08/10/2020 Active (LIPITOR) 40 MG tablet (40 1 tablet mg total) by mouth nightly for 90 days. melatonin 5 mg Tab Take 1 30 tablet 2 08/10/2020 Active tablet tablet (5 mg 1 total) by mouth every night as needed for up to 90 days. aspirin 81 MG Take 1 90 tablet 3 08/11/2020 Activ e chewable tablet tablet (81 1 mg total) by mouth daily. oxybutynin Take 1 30 tablet 2 08/10/2020 Active (DITROPAN) 5 MG tablet (5 mg 1 tablet total) by mouth daily for 90 days. divalproex Take 1 30 tablet 2 08/10/2020 Active (DEPAKOTE) 500 MG tablet (500 1 EC tablet mg total) by mouth nightly for 90 days. lisinopriL Take 1 60 tablet 2 08/10/2020 Active (PRINIVIL,ZESTRIL) tablet (20 1 20 MG tablet mg total) by mouth 2 (two) times daily for 90 days. NIFEdipine (ADALAT Take 1 30 tablet 2 08/10/2020 Active CC) 60 MG 24 hr tablet (60 1 tablet mg total) by mouth daily for 90 days. Tradjenta 5 mg Tab Take 1 0 06/22/2020 Discontinued tablet by 0 (Reorder) mouth daily. metoprolol Take 1 0 05/17/2020 Disconti nued tartrate tablet by 0 (Reorder) (LOPRESSOR) 100 MG mouth daily. tablet atorvastatin Take 1 0 08/01/2020 Discon tinued (LIPITOR) 40 MG tablet by 0 (Reo rder) tablet mouth nightly. divalproex Take 1 0 07/23/2020 Disconti nued (DEPAKOTE) 500 MG tablet by 0 (R eorder) EC tablet mouth nightly. lisinopriL Take 1 0 07/16/2020 Disconti nued (PRINIVIL,ZESTRIL) tablet by 0 ( Reorder) 20 MG tablet mouth 2 (two) times daily. meloxicam (MOBIC) Take 1 0 06/19/2020 D iscontinued 15 MG tablet tablet by 0 (Stop T aking at mouth daily. Dischar ge) NIFEdipine (ADALAT Take 1 0 07/19/2020 Discontinued CC) 60 MG 24 hr tablet by 0 (Reo rder) tablet mouth daily. oxybutynin Take 1 0 06/24/2020 Disconti nued (DITROPAN) 5 MG tablet by 0 (Reo rder) tablet mouth daily. traMADoL (ULTRAM) Take 1 0 07/18/2020 D iscontinued 50 mg tablet tablet by 0 (Stop T aking at mouth Discharge) nightly. traZODone Take 1 0 07/19/2020 Discontin ued (DESYREL) 100 MG tablet by 0 (St op Taking at tablet mouth Discharge) nightly. mINOCYCLine Take 1 6 capsule 0 08/10/2020 (MINOCIN,DYNACIN) capsule (100 0 100 MG capsule mg total) by mouth every 12 (twelve) hours for 3 days. benzonatate Take 1 28 capsule 0 08/10/2020 d (TESSALON) 100 MG capsule (100 0 capsule mg total) by mouth 4 (four) times daily before meals and nightly for 7 days. Active Problems Problem Noted Date Bradycardia 08/05/2020 Acute respiratory insufficiency 08/05/2020 Encounters Date Type Specialty Care Team Description 08/07/2020 Anesthesia Event Cody Ovalles Jr., MD 08/07/2020 Surgery Steven Gracia, PACEMAKER GEN & ANDRE Lopez - ELTON ASTORGA MD W/ GENERAL ANESTHESIA (SING/DUAL/MULT ) 08/07/2020 Orders Only General Internal Medicine 08/05/2020 - Hospital Encounter Cardiology Bandeali, Acute res piratory insufficiency; 08/10/2020 Salman Bradycardia MD Albert Tyson Narendra, MD after 09/12/2019 Social History Tobacco Use Types Packs/Day Years Used Date Never Assessed Sex Assigned at Date Recorded Not on file Last Filed Vital Signs Vital Sign Reading Time Taken Comments Blood Pressure 134/58 08/10/2020 3:39 PM CDT Pulse 74 08/10/2020 3:39 PM CDT Temperature 37.3 C (99.2 F) 08/10/2020 3:39 PM CDT Respiratory Rate 17 08/10/2020 3:39 PM CDT Oxygen Saturation 95% 08/10/2020 3:39 PM CDT Inhaled Oxygen Concentration 40% 08/06/2020 2:43 PM CDT Weight 117 kg (257 lb 15 oz) 08/07/2020 6:00 AM CDT Height 170.2 cm (5' 7") 08/05/2020 12:30 PM CDT Body Mass Index 40.4 08/05/2020 12:30 PM CDT Plan of Treatment Health Maintenance Due Date Last Done Comments COLON CANCER SCREENING COLONOSCOPY 1955 LIPID PANEL 10/15/2019 10/15/2016 INFLUENZA VACCINE (#1) 2020 Implants Implanted Type 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 Device Shelf Model / Identifier Expiration Serial / Date Lot Capsurefix Novus Mri Surescan 5076-58 Pacemaker Left: MEDTRONIC 06/11/2022 5076-58 / Implanted: Qty: 1 on 08/07/2020 by Bienvenido Gracia, Adele Brady MD at [facility] Lead Heart [id number] / Description:RV Lead Capsurefix Novus Mri Heart MEDTRONIC 2 5076-52 / Implanted: Qty: 1 on 08/07/2020 by Adele Jane MD at [facility] [id number] / Description:RA Lead [place] Xt Dr Louise Conklin Left: Chest [employer]TR[employer] [id number] / Implanted: Qty: 1 on 08/07/2020 by Adele Jane MD at [facility] [id number] / Description:Generator Procedures Procedure Name Priority Date/Time Associated Comments Diagnosis CBC W/PLT COUNT & Routine 08/10/2020 3:36 Result s for this AUTO DIFFERENTIAL AM CDT procedure are in the results section. CBC W/PLT COUNT & Routine 08/10/2020 3:36 Result s for this AUTO DIFFERENTIAL AM CDT procedure are in the results section. MAGNESIUM Routine 08/10/2020 3:36 Results for this AM CDT procedure are i n the results section. HEMOGLOBIN A1C Routine 08/10/2020 3:36 Results f or this AM CDT procedure are i n the results section. BASIC METABOLIC PANEL Routine 08/10/2020 3:36 Re sults for this (7) AM CDT procedure are i n the results section. HEMOGLOBIN A1C AP Routine 08/09/2020 3:09 Results f or this PM CDT procedure are i n the results section. CBC W/PLT COUNT & Routine 08/09/2020 6:17 Result s for this AUTO DIFFERENTIAL AM CDT procedure are in the results section. CBC W/PLT COUNT & Routine 08/09/2020 6:17 Result s for this AUTO DIFFERENTIAL AM CDT procedure are in the results section. BASIC METABOLIC PANEL Routine 08/09/2020 6:17 Re sults for this (7) AM CDT procedure are i n the results section. XR CHEST 1 VIEW Routine 08/08/2020 7:16 Results for this PORTABLE/BEDSIDE AM CDT procedure a re in the results section. CBC W/PLT COUNT & Routine 08/08/2020 5:27 Result s for this AUTO DIFFERENTIAL AM CDT procedure are in the results section. CBC W/PLT COUNT & Routine 08/08/2020 5:27 Result s for this AUTO DIFFERENTIAL AM CDT procedure are in the results section. BASIC METABOLIC PANEL Routine 08/08/2020 5:27 Re sults for this (7) AM CDT procedure are i n the results section. XR CHEST 1 VIEW Routine 08/07/2020 7:39 Results for this PORTABLE/BEDSIDE PM CDT procedure a re in the results section. POCT-GLUCOSE METER Routine 08/07/2020 4:02 Resul ts for this PM CDT procedure are i n the results section. PACEMAKER GEN & LEADS 08/07/2020 12:42 CHB (complete - INSERTION W/ PM CDT heart block) (HCC) GENERAL ANESTHESIA (SING/DUAL/MULT) Case Notes (2)CASE [id number] / dual chambe r PPM / [employer] ECG 12-LEAD Routine 08/07/2020 6:47 AM CDT Procedure Note - Interface, External Ris In - 08/07/2020 6:58 AM CDT Ventricular Rate 84 BPM Atrial Rate 84 BPM P-R Interval 220 ms QRS Duration 98 ms Q-T Interval 380 ms QTC Calculation(Bazett) 449 ms P [place]edy[place] 64 degrees R [place] 55 degrees T [place] 61 degrees Sinus rhythm with 1st degree A-V block Nonspecific ST and T wave ab normality Abnormal ECG No previous ECGs available ECG 12-LEAD Routine 08/07/2020 6:47 AM CDT Resu lts for this procedure are i n the results section . CBC W/PLT COUNT & AUTO Routine 08/07/2020 3:57 AM CDT Results for this DIFFERENTIAL procedure are i n the results section . CBC W/PLT COUNT & AUTO Routine 08/07/2020 3:57 AM CDT Results for this DIFFERENTIAL procedure are i n the results section . PROTHROMBIN TIME/INR Routine 08/07/2020 3:57 AM CDT Results for this procedure are i n the results section . BASIC METABOLIC PANEL (7) Routine 08/07/2020 3:57 AM CDT Results for this procedure are i n the results section . CT BRAIN WITHOUT IV STAT 08/06/2020 6:26 PM CDT Results for this CONTRAST procedure are i n the results section . POCT-GLUCOSE METER Routine 08/06/2020 5:52 PM CDT Results for this procedure are i n the results section . POCT-GLUCOSE METER Routine 08/06/2020 12:09 PM CDT Results for this procedure are i n the results section . ECG 12-LEAD Routine 08/06/2020 12:00 PM CDT Resu lts for this procedure are i n the results section . ECHO W CONTRAST & DOPPLER TONI 08/06/2020 8:42 AM CDT Results for this procedure are i n the results section . CBC W/PLT COUNT & AUTO Routine 08/06/2020 4:09 AM CDT Results for this DIFFERENTIAL procedure are i n the results section . MAGNESIUM STAT Add-on 08/06/2020 4:09 AM CDT Resu lts for this procedure are i n the results section . CBC W/PLT COUNT & AUTO Routine 08/06/2020 4:09 AM CDT Results for this DIFFERENTIAL procedure are i n the results section . BASIC METABOLIC PANEL (7) Routine 08/06/2020 4:09 AM CDT Results for this procedure are i n the results section . SARS-COV2/RT-PCR ([facility] & Routine 08/05/2020 10:59 PM CDT Results for this REF LABS) procedure are i n the results section . BLOOD GAS, ARTERIAL STAT 08/05/2020 7:10 PM CDT Results for this procedure are i n the results section . BASIC METABOLIC PANEL (7) STAT 08/05/2020 7:10 PM CDT Results for this procedure are i n the results section . TROPONIN I TONI 08/05/2020 7:10 PM CDT Resu lts for this procedure are i n the results section . POCT-GLUCOSE METER Routine 08/05/2020 6:33 PM CDT Results for this procedure are i n the results section . XR CHEST 1 VIEW TONI 08/05/2020 2:37 PM CDT R esults for this PORTABLE/BEDSIDE procedure a re in the results section . BLOOD GAS, ARTERIAL TONI 08/05/2020 1:14 PM CDT Results for this procedure are i n the results section . CBC W/PLT COUNT & AUTO Routine 08/05/2020 1:13 PM CDT Results for this DIFFERENTIAL procedure are i n the results section . MAGNESIUM Add-On 08/05/2020 1:13 PM CDT Resu lts for this procedure are i n the results section . VALPROIC ACID LEVEL, TOTAL Routine 08/05/2020 1:13 PM CDT Results for this procedure are i n the results section . B-TYPE NATRIURETIC FACTOR Routine 08/05/2020 1:13 PM CDT Results for this (BNP) procedure are i n the results section . CBC W/PLT COUNT & AUTO Routine 08/05/2020 1:13 PM CDT Results for this DIFFERENTIAL procedure are i n the results section . COMPREHENSIVE METABOLIC Routine 08/05/2020 1:13 PM CDT Results for this PANEL procedure are i n the results section . TROPONIN I TONI 08/05/2020 1:13 PM CDT Resu lts for this procedure are i n the results section . XR CHEST 1 VIEW STAT 08/05/2020 12:43 PM CDT R esults for this PORTABLE/BEDSIDE procedure a re in the results section . ECG 12-LEAD Routine 08/05/2020 12:15 PM CDT Resu lts for this procedure are i n the results section . ARRYTHMIA IMPLANT REPORT - 08/05/2020 R esults for this SCAN procedure are i n the results section . ARRYTHMIA IMPLANT REPORT - 08/05/2020 R esults for this SCAN procedure are i n the results section . after 09/12/2019 Results CBC with platelet count + automated diff (08/10/2020 3:36 AM CDT)Only the most recent of6 resultswithin the time period is included. Pathologist Sig nature WBC 5.9 3.5 - 10.5 [facility] K/L [facility] RBC 3.26 (L) 4.63 - 6.08 [facility] M/L [facility] Hemoglobin 10.1 (L) 13.7 - 17.5 [facility] GM/DL [facility] Hematocrit 30.1 (L) 40.1 - 51.0 % [facility] MCV 92.3 (H) 79.0 - 92.2 fL [facility] MCH 31.0 25.7 - 32.2 pg [facility] MCHC 33.6 32.3 - 36.5 [facility] GM/DL [facility] RDW 14.7 (H) 11.6 - 14.4 % [facility] Platelets 148 (L) 150 - 450 K/CU [facility] MPV 10.9 9.4 - 12.4 fL [facility] nRBC 0 0 - 0 /100 WBC [facility] % Neutros 56 % [facility] % Lymphs 22 % [facility] % Monos 17 % [facility] % Eos 5 % [facility] % Baso 0 % [facility] # Neutros 3.29 1.78 - 5.38 [facility] # Lymphs 1.27 (L) 1.32 - 3.57 [facility] # Monos 1.00 (H) 0.30 - 0.82 [facility] # Eos 0.28 0.04 - 0.54 [facility] # Baso 0.01 0.01 - 0.08 [facility] Immature 0 0 - 1 % [facility] Specimen Blood Performing Organization Address City/State/Zipcode Phone Number [facility] [address] [place] [address] CENTER Magnesium (08/10/2020 3:36 AM CDT)Only the most recent of3 resultswithin the time period is included. Pathologist Sig nature Magnesium 1.7 1.6 - 2.6 mg/dL [facility] Specimen Blood Narrative Performed At Plant Attendant ID - EDASI [facility] C[facility] Performing Organization Address City/State/Zipcode Phone Number [facility] [address] [place] [address] CENTER Hemoglobin A1c (08/10/2020 3:36 AM CDT)Only the most recent of2 resultswithin the time period is included. Pathologist Sig nature Hemoglobin A1C 6.2 (H) 4.3 - 6.1 % [facility] Specimen Blood Narrative Performed At Plant Attendant ID - ADMIN [facility] Performing Organization Address City/State/Zipcode Phone Number [facility] [address] [place], [place] [address] Basic metabolic panel (08/10/2020 3:36 AM CDT)Only the most recent of6 results within the time period is included. Sodium 142 136 - 145 meq/L [facility] Potassium 4.0 3.5 - 5.1 meq/L [facility] Chloride 107 98 - 107 meq/L [facility] CO2 27 22 - 29 meq/L [facility] BUN 23 (H) 7 - 21 mg/dL [facility] Creatinine 1.35 (H) 0.57 - 1.25 [facility] mg/dL [facility] Glucose 150 (H) 70 - 105 mg/dL [facility] Calcium 8.1 (L) 8.4 - 10.2 [facility] mg/dL [facility] EGFR 53Comment: ESTIMATED mL/min/1.73 sq [facility] GFR IS NOT m [facility] ACCURATE ALVA CREATININE CLEARANCE IN PREDICTING GLOMERULAR FILTRATION RATE. ESTIMATED GFR IS NOT APPLICABLE FOR DIALYSIS PATIENTS. Specimen Blood Narrative Performed At Plant Attendant ID - JAVIERASI [facility] C[facility] Performing Organization Address City/State/Zipcode Phone Number [facility] [address] [place] [address] CENTER XR chest 1 view portable / bedside (08/08/2020 7:16 AM CDT)Only the most recent of4 resultswithin the time period is included. Specimen Narrative Performed At FINAL REPORT [facility] CLINICAL HISTORY: post-ppm TECHNIQUE: 1 view of the chest. COMPARISON: 08/07/2020 IMPRESSION: A left chest wall pacemaker is again see n without pneumothorax. There are no new infiltrates or significant ef fusions. Cardiomegaly is again noted. Signed: Michelle Tariq MD Report Verified Date/Time: 08/08/2020 08:26:51 Reading Location: [facility] Reading Room Procedure Note Interface, External Ris In - 08/08/2020 8:29 AM CDT FINAL REPORT CLINICAL HISTORY: post-ppm TECHNIQUE: 1 view of the chest. COMPARISON: 08/07/2020 IMPRESSION: A left chest wall pacemaker is again see n without pneumothorax. There are no new infiltrates or significant ef fusions. Cardiomegaly is again noted. Signed: Michelle Tariq MD Report Verified Date/Time: 08/08/2020 0 8:26:51 Reading Location: [facility] Reading Room Performing Organization Address City/[facility] Phone Number GE RIS POC-Glucose meter (08/07/2020 4:02 PM CDT)Only the most recent of4 results within the time period is included. POC-Glucose Meter 132 (H) 70 - 110 mg/dL [facility] Comment: [facility] : TESTED AT [address], [address] CENTER : Plant Attendant/Occup Therapist ID = [id number] for SALOMON FLORES Specimen Blood Performing Organization Address [facility] Phone Number [place] [phone] CENTER ECG 12 lead (08/07/2020 6:47 AM CDT)Only the most recent of3 resultswithin the time period is included. Specimen Narrative Performed At This result has an attachment that is no t available. Ventricular Rate 84 BPM GE MUSE Atrial Rate 84 BPM P-R Interval 220 ms QRS Duration 98 ms Q-T Interval 380 ms QTC Calculation(Bazett) 449 ms P [place]edy[place] 64 degrees R [place] 55 degrees T [place] 61 degrees Sinus rhythm with 1st degree A-V block Nonspecific ST and T wave abnormality Abnormal ECG No previous ECGs available Confirmed by MD Silvia, Justino ([id number]) on 07/26 1:22:08 PM Procedure Note Interface, External Ris In - 08/07/2020 1:22 PM CDT Ventricular Rate 84 BPM Atrial Rate 84 BPM P-R Interval 220 ms QRS Duration 98 ms Q-T Interval 380 ms QTC Calculation(Bazett) 449 ms P [place] 64 degrees R [place] 55 degrees T [place] 61 degrees Sinus rhythm with 1st degree A-V block Nonspecific ST and T wave abnormality Abnormal ECG No previous ECGs available Confirmed by MD Vega Roberto ([id number]) on 08/07/2020 1:22:08 PM Performing Organization Address City/State/Zipcode Phone Number [employer] [facility] Prothrombin time/INR (08/07/2020 3:57 AM CDT) Pathologist Sig nature Protime 15.9 (H) 11.9 - 14.2 seconds [facility] INR 1.31 <=5.90 [facility] Specimen Blood Narrative Performed At Effective 03/23/2019: PT Reference Range [facility] Change New: 11.9-14.2 Previous: 11.7-14.7 RECOMMENDED COUMADIN/WARFARIN INR THERAPY RANGES STANDARD DOSE: 2.0-3.0 Includes: PROPHYLAXIS for venous thrombosis, systemic embolization; TREATMENT for venous thrombosis and/or pulmonary embolus. HIGH RISK: Target INR is 2.5-3.5 for patients wiht mechanical heart valves. Performing Organization Address City/[facility] Phone Number [facility] [address] [place] [address] brain without IV contrast (08/06/2020 6:26 PM CDT) Specimen Narrative Performed At FINAL REPORT [facility] CT, BRAIN, WITHOUT IV CONTRAST INDICATION: Altered mental status TECHNIQUE: Noncontrast axial imaging was obtained from the vertex to the skull base. Axial images were recons tructed using a bone algorithm. DOSE REDUCTION: Dose modulation, iterati ve reconstruction, and/or weight-based adjustment of the mA/kV was utilized to reduce the radiation dose to as low as reasonably a chievable. COMPARISON: None. FINDINGS: Intracranial: No intracranial hemorrhage or abnormal extra-axial collection. No evidence of acute territo rial infarct. No mass effect. No hydrocephalus. Generalized cerebral atrophy with ex vac uo dilatation of the ventricular system proportionate to sulc i. Bilateral chronic appearing thalamic lacunar infarcts. Sca ttered foci of hypoattenuation within the periventricul ar and subcortical white matter are a nonspecific finding commonl y attributed to chronic small vessel ischemic disease. Osseous structures: No fracture. No susp icious lesion. Paranasal sinuses and mastoid air cells: No evidence of sinusitis. Mastoids are clear. Orbital contents: Globes are intact. IMPRESSION: No acute intracranial hemorrhage or CT e vidence of territorial infarct. If there is persistent clinical concern for intracranial pathology, MR examination is recommended for furthe r characterization. Signed: Zahida Dobbs MD Report Verified Date/Time: 08/06/2020 18:41:07 Procedure Note Interface, External Ris In - 08/06/2020 6:43 PM CDT FINAL REPORT CT, BRAIN, WITHOUT IV CONTRAST INDICATION: Altered mental status TECHNIQUE: Noncontrast axial imaging was obtained from the vertex to the skull base. Axial images were recons tructed using a bone algorithm. DOSE REDUCTION: Dose modulation, iterati ve reconstruction, and/or weight-based adjustment of the mA/kV was utilized to reduce the radiation dose to as low as reasonably a chievable. COMPARISON: None. FINDINGS: Intracranial: No intracranial hemorrhage or abnormal extra-axial collection. No evidence of acute territo rial infarct. No mass effect. No hydrocephalus. Generalized cerebral atrophy with ex vac uo dilatation of the ventricular system proportionate to sulc i. Bilateral chronic appearing thalamic lacunar infarcts. Sca ttered foci of hypoattenuation within the periventricul ar and subcortical white matter are a nonspecific finding commonl y attributed to chronic small vessel ischemic disease. Osseous structures: No fracture. No susp icious lesion. Paranasal sinuses and mastoid air cells: No evidence of sinusitis. Mastoids are clear. Orbital contents: Globes are intact. IMPRESSION: No acute intracranial hemorrhage or CT e vidence of territorial infarct. If there is persistent clinical concern for intracranial pathology, MR examination is recommended for furthe r characterization. Signed: Zahida Dobbs MD Report Verified Date/Time: 08/06/2020 1 8:41:07 Performing Organization Address City/State/Zipcode Phone Number RIS ECHO W CONTRAST & DOPPLER (08/06/2020 8:42 AM CDT) Pathologist Sig nature Ejection Fraction [facility] ECHO [facility] Specimen Narrative Performed At Transthoracic Echocardiography Report (T TE) [facility] ECHO [facility]ART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 Clinical History HGB 12.2 HCT 36.7 % Bradycardia, HTN, CVA, DM Contrast Medium: Definity. Amount - 2 ml Height: 67 inches Weight: 117.03 kg (258 lbs) BSA: 2.25 m^2 BMI: 40.41 kg/m^2 HR: 80 bpm BP: 115/101 mmHg Summary The left ventricle is chamber size (by PSLAX dimension) is small (male - LVIDd < 4.2cm) . Mild concentric LV hypertrophy. All of the LV segments contract normally . LVEF by Winn's method of disk assessment is normal (55-60%) . Degree of diastolic dysfunction (LAP assessment) is indeterminate. Unable to estimate peak systolic PA pressure; inadequate TR velocity signal. Signature Findings Technical Quality: Technically difficult exam. Left Ventricle LV endocardium is adequately visualized with IV ultrasound enhancing agent. The left ventricle is chamber size (by PSLAX dimension) is small (male - LVIDd < 4.2cm) . Mild concentric LV hypertrophy. All of the LV segments contract normally . LVEF by Winn's method of disk assessment is normal (55-60%) . Degree o f diastolic dysfunction (LAP assessment) is inde terminate. Left Atrium LA size is moderately enlarged . Right Ventricle Normal right ventricle structure and function. Right Atrium Normal righ t atrium. Aortic Valve Mild AoV cusp thickening. Mild AoV cusp calcification. Mitral Valve Mild MV leaflet thickening. Tricuspid Valve A trace of tricuspid regurgitation. Unable to estimate peak systolic PA pressure; inadequate TR velocity signal. Pulmonic Valve Normal PV structure and function by limited views and Doppler. Aorta Aortic root size (SInus of Valsalva diameter) is norm al . Pericardium No evidence of pericardial effusion. IVC/SVC/PA/PV/Pleural The estimated RA pressure by IVC dynamics 11-15mmHg . Chambers/Structures Left Atrium LA Volume: 98.19 ml LA Area: 28.22 cm^2 LA Vol. Index: 44 ml/m^2 Left Ventricle LVIDd: 3.82 cm LVEDV:55.81 ml LVIDs: 1.98 cm LVESV:7.78 ml LV Septum Diastolic: 1.46 cm LVEF 2D Cube: 83.8 % LV PW Diastolic: 1.36 cm LVEDV Winn's:74.43 ml LV Length: 8.26 cm LVESV Winn's:32.55 ml LV FS: 48.2 % LVEF Winn's: 56.3 % LVEDVI: 33 ml/m^2 LVOT Diameter: 2.06 cm LVESVI: 14 ml/m^2 LVEF: 86.1 % Doppler/Quantitative Measurements Aortic Valve Peak Velocity: 1.45 m/s Mean Velocity: 1.15 m/s Peak Gradient: 8.38 mmHg Mean Gradient: 5.59 mmHg AV Area (continuity): 2 cm^2 AV VTI: 26.02 cm AV DVI: 0.6 LVOT Peak Velocity: 0.94 m/s Peak Gradient: 3.53 mmHg Mean Velocity: 0.63 m/s Mean Gradient: 1.88 mmHg LVOT Diameter: 2.06 cm LVOT VTI: 15.63 cm LVOT Area: 3.33 cm^2 LVOT SV:52.07 ml LVOT CO: 4.17 l/min LVOT CI: 1.85 l/min/m^2 Procedure Note Interface, External Ris In - 08/06/2020 1:55 PM CDT Transthoracic Echocardiography Report (TTE) Demographics Patient Name MARCELLUS, Date of S douglas 08/06/2020 RAPHAEL Gender Male Visit Number [id number] Race Unknown Room Numb er C823 Number Date of 1955 Referring Physician Kalina Rodrigez MD Age 64 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 Clinical History HGB 12.2 HCT 36.7 % Bradycardia, HTN, CVA, DM Contrast Medium: Definity. Amount - 2 ml Height: 67 inches Weight: 117.03 kg (258 lbs) BSA: 2.25 m^2 BMI: 40.41 kg/m^2 HR: 80 bpm BP: 115/101 mmHg Summary The left ventricle is chamber size (by PSLAX dimension) is small (male - LVIDd < 4.2cm) . Mild concentric LV hyp ertrophy. All of the LV segments contract normally . LVEF by Winn's m ethod of disk assessment is normal (55-60%) . Degree of diastolic dysfunction (LAP as sessment) is indeterminate. Unable to estimate peak systolic PA pre ssure; inadequate TR velocity signal. Signature Findings Technical Quality: Technically difficult exam. 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 The left ventric le is chamber size (by PSLAX dimension) is sm all (male - LVIDd < 4.2cm) . Mild concentric LV hy pertrophy. All of the LV segments contract normall y . LVEF by Winn's method of disk assessment is normal (55-60%) . Degree of diastolic dysfun ction (LAP assessment) is indeterminate. Left Atrium LA size is moder ately enlarged . Right Ventricle Normal right evelyn tricle structure and function. Right Atrium Normal right atr ium. Aortic Valve Mild AoV cusp th ickening. Mild AoV cusp ca lcification. Mitral Valve Mild MV leaflet thickening. Tricuspid Valve A trace of tricu spid regurgitation. Unable to estima te peak systolic PA pressure; inadequate TR ve locity signal. Pulmonic Valve Normal PV struct ure and function by limited views and Doppler. Aorta Aortic root size (SInus of Valsalva diameter) is normal . Pericardium No evidence of p ericardial effusion. IVC/SVC/PA/PV/Pleural The estimated RA pressure by IVC dynamics 11-15mmHg . Chambers/Structures Left Atrium LA Volume: 98.19 ml LA Area: 28.22 cm^2 LA Vol. Index: 44 ml/m^2 Left Ventricle LVIDd: 3.82 cm LVEDV:55.81 ml LVIDs: 1.98 cm LVESV:7.78 ml LV Septum Diastolic: 1.46 cm LVEF 2D Cube: 83.8 % LV PW Diastolic: 1.36 cm LVEDV Winn's:74.43 ml LV Length: 8.26 cm LVESV Winn's:32.55 ml LV FS: 48.2 % LVEF Winn's: 56.3 % LVEDVI: 33 ml/m^2 LVOT Diameter: 2.06 cm LVESVI: 14 ml/m^2 LVEF: 86.1 % Doppler/Quantitative Measurements Aortic Valve Peak Velocity: 1.45 m/s Mean Velocity: 1.15 m/s Peak Gradient: 8.38 mmHg Mean Gradient: 5.59 mmHg AV Area (continuity): 2 cm^2 AV VTI: 26.02 cm AV DVI: 0.6 LVOT Peak Velocity: 0.94 m/s Pea k Gradient: 3.53 mmHg Mean Velocity: 0.63 m/s Yola n Gradient: 1.88 mmHg LVOT Diameter: 2.06 cm LVO T VTI: 15.63 cm LVOT Area: 3.33 cm^2 LVO T SV:52.07 ml LVOT CO: 4.17 l/min LVO T CI: 1.85 l/min/m^2 Performing Organization Address City/State/Zipcode Phone Number [facility] SARS-CoV2/RT-PCR ([facility]) (08/05/2020 10:59 PM CDT) SARS-COV2/RT-PCR Negative Not Detected, [facility] Negative, See [facility] external report CENTER for linked test SARS-COV-2 [facility] PERFORMING LAB [facility] Specimen Other - Nasopharyngeal wall structure (b ayden structure) Narrative Performed At Negative result for this test determines that [facility] SARS-CoV-2 RNA was not present in the specimen above the Limit of Detection (LOD). However, Negative results do not preclude SARS-CoV-2 infection and should not be used as the sole basis for treatment or patient management decisions. Negative results must be combined with clinical observations, patient history, and epidemiological information. A false negative result may occur if a specimen is improperly collected, transported or handled. A false negative result should be considered if patient's recent exposures or clinical presentation indicate that COVID-19 (SARS-CoV-2) is likely and diagnostic tests for other causes of illness are negative. Re-testing should be considered in cases of suspected false negatives. The limit of detection for this assay is 800 copies/mL. This SARS CoV-2 test is a real-time RT-PCR test intended for the qualitative detection of nucleic acid from SARS-CoV-2 in a nasopharyngeal swab specimen collected from individuals suspected of COVID-19 by their healthcare provider. This test has not been Food and Drug Administration (FDA) cleared or approved. This is a modified version of an approved Emergency Use Authorization (EUA) and is in the process of review by the FDA. Once authorized by the FDA, the issued EUA will be effective until the declaration that circumstances exist justifying the authorization of the emergency use of in vitro diagnostic tests for detection and/or diagnosis of COVID-19 is terminated under Section 564(b)(2) of the Act or the EUA is revoked under Section 564(g) of the Act. Fact Sheet for Healthcare Providers: https://www.[employer]/sites/default/files/pro duct/documents/Fact_Sheet_HC_Providers_Lyra_SA RS-CoV-2.pdf Fact Sheet for Healthcare Patients: https://www.[employer]/sites/default/files/pro duct/documents/Fact_Sheet_Patients_Lyra_SARS-C oV-2.pdf Performing Laboratory: [address] [place] [address] Performing Organization Address City/State/Zipcode Phone Number [address] [address] CENTER Troponin I (08/05/2020 7:10 PM CDT)Only the most recent of2 resultswithin the time period is included. Pathologist Sig nature Troponin I 0.02 0.00 - 0.03 ng/mL [facility] Specimen Blood Narrative Performed At Troponin I (TnI) levels must be interpreted [facility] in the context of the presenting symptoms and the clinical findings. Elevated TnI levels indicate myocardial damage, but are not specific for ischemic heart disease. Elevated TnI levels are seen in patients with other cardiac conditions (including myocarditis and congestive heart failure), and slight TnI elevations occur in patients with other conditions, including sepsis, renal failure, acidosis, acute neurological disease, and persistent tachyarrhythmia. Plant Attendant ID - RM Performing Organization Address City/[facility]/Zipcode Phone Number [address] [address] [place] Blood gas, arterial (08/05/2020 7:10 PM CDT)Only the most recent of2 results within the time period is included. Pathologist Sig nature pH, Arterial 7.54 (H) 7.35 - 7.45 [facility] pCO2, Arterial 27 (L) 35 - 45 mm Hg [facility] pO2, Arterial 136 (H) 80 - 90 mm Hg [facility] O2 Sat, Arterial 99.1 (H) 96.0 - 97.0 % [facility] HCO3, Arterial 23 21 - 29 mmol/L [facility] Base Excess, Arterial 0.8 -2.0 - 3.0 [facility] mmol/L [facility] Patient Temperature 36.0 [facility] FIO2 50.0 [facility] Specimen Blood, Arterial Performing Organization Address [facility] Phone Number [address] [address] [place] B-type Natriuretic Factor (BNP) (08/05/2020 1:13 PM CDT) Pathologist Sig nature BNP 29 0 - 100 pg/mL [facility] Specimen Blood Narrative Performed At Plant Attendant ID - ERIC [facility] Performing Organization Address [facility] Phone Number [address] [address] [place] Valproic acid level, total (08/05/2020 1:13 PM CDT) Pathologist Sig nature Valproic Acid, Total 30 (L) 50 - 100 ug/mL [facility] Specimen Blood Narrative Performed At Therapeutic range for some clinical [facility] conditions may be >100 ug/mL Plant Attendant ID - RM Performing Organization Address [facility] Phone Number [address] [address] CENTER Comprehensive metabolic panel (08/05/2020 1:13 PM CDT) Protein, Total 7.6Comment: 6.0 - 8.[address] [facility] Specimen slightly gm/dL [facility] Albumin 3.8Comment: 3.5 - 5.0 [facility] Specimen slightly g/dL [facility] Alkaline 104 40 - 150 U/L [facility] Phosphatase [facility] Total Bilirubin 1.1Comment: 0.2 - 1.2 [facility] Specimen slightly mg/dL [facility] Sodium 139 136 - 145 [facility] meq/L [facility] Potassium 6.3 (HH)Comment: 3.5 - 5.1 [facility] Specimen slightly meq/L [facility] Chloride 109 (H) 98 - 107 [facility] meq/L [facility] CO2 24 22 - 29 meq/L [facility] BUN 43 (H) 7 - 21 mg/dL [facility] Creatinine 1.72 (H)Comment: 0.57 - 1.25 [facility] Specimen slightly mg/dL [facility] Glucose 187 (H) 70 - 105 [facility] mg/dL [facility] Calcium 8.6 8.4 - 10.2 [facility] mg/dL [facility] AST 40 (H)Comment: 5 - 34 U/L [facility] Specimen [facility] ALT 83 (H)Comment: 6 - 55 U/L [facility] Specimen [facility] EGFR 40Comment: mL/min/1.73 [facility] ESTIMATED GFR IS sq m [facility] NOT ACCURATE MEDICAL [facility]ENTER CREATININE CLEARANCE IN PREDICTING GLOMERULAR FILTRATION RATE. ESTIMATED GFR IS NOT APPLICABLE FOR DIALYSIS PATIENTS. Specimen Blood Narrative Performed At Plant Attendant ID - DAYAG [facility] Performing Organization Address City/State/Zipcode Phone Number [facility] [address] [place] [address] CENTER ARRYTHMIA IMPLANT REPORT - SCAN (08/05/2020)Only the most recent of2 results within the time period is included. Narrative Performed At This result has an attachment that is no t available. Ordered by an unspecified provider. after 09/12/2019 Insurance Payer Benefit Plan Subscriber ID Effective Dates Phone Address Type / Group MEDICAID - [facility] [id number] 2018-Ladarius darling MEDICAID MGD STAR PLAN nt [facility] [place] [address] Advance Directives For more information, please contact: [phone] Code Status Date Activated Date Inactivated Comments Full Code 08/05/2020 12:38 PM 08/10/2020 8:02 PM This code status was determined by: Patient
--- OUTSIDE RECORDS SUMMARY | 2020-09-12 16:01 | XMS REPORT | Continuity of Care Document ---
:1955 Author Organization [facility] t Address [address] [place] [address] Care Team Providers Name Role Phone Rain ZAZUETA, Kalina Tyson Attending Clinician [phone] Albert ZAZUETA Attending Clinician Caitlyn Ray MD Attending Clinician [phone] Kash Ovalles MD Attending Clinician JESSE RODRIGEZ Attending Clinician Unavailable JESSE RODRIGEZ Admitting Clinician Unavailable Payers Payer Name Policy Type Policy Effective Date Expiration Date Sour ce Number MEDICAID - [id number] 2018 [facility] MEDICAID MGD 00:00:00 - Medical CARED [facility] Center STAR [id number]-PresentMedi caid Contracted Problems Condition Condition Condition Status Onset Resolution Last Treating Co mments Source Name Details Category Date Date Treatment Clinician Date Bradycardi Bradycardi Disease Active 2019-[address] [facility] Acute Disease Active 2019-[address] [facility] respirator respirator 0-11 Ericka kes - y y 00:00: Medical insufficie insufficie 00 Ce nter ncy ncy Allergies, Adverse Reactions, Alerts This patient has no known allergies or adverse reactions. Social History Social Habit Start Date Stop Date Quantity Comments Source Sex Assigned At [facility] Medications Ordered Filled Start Stop Current Ordering Indication Dosage Frequency Signature Comments Components Source Medication Medication Date Date Medication? Clinician (SIG) Name Name aspirin 81 2019-10- Yes 81mg QD Take [address] [facility] MG chewable 0-17 10-17 tablet (81 L ukes - tablet 00:00: 23:59 mg total) Medic al 00 :00 by mouth Center daily. metoprolol 2019-10- Yes 50mg Q.5D Take 0.[address] tartrate 016 11-08 tablets [facility] - (LOPRESSOR) 00:00: 23:59 (50 mg Med ical 100 MG 00 :00 total) by Center tablet mouth 2 (two) times daily for 90 days. Tradjenta 5 2019-10- Yes 5mg QD Take [address] [facility] mg Tab 011-08 tablet (5 [facility] - 00:00: 23:59 mg total) Medical 00 :00 by mouth Center daily for 90 days. atorvastati 2019-10- Yes 40mg QD Take [address] [facility] n (LIPITOR) 011-08 tablet (40 L ukes - 40 MG 00:00: 23:59 mg total) Medica l tablet 00 :00 by mouth Center nightly for 90 days. melatonin 5 2019-10- Yes 5mg Take [address] [facility] mg Tab 11-08 tablet (5 [facility] - tablet 00:00: 23:59 mg total) Medic al 00 :00 by mouth Center every night as needed for up to 90 days. oxybutynin 2019-10- Yes 5mg QD Take [address] [facility] (DITROPAN) 011-08 tablet (5 Reji es - 5 MG tablet 00:00: 23:59 mg total) Medical 00 :00 by mouth Center daily for 90 days. divalproex 2019-10- Yes 500mg QD Take [address] [facility] (DEPAKOTE) 011-08 tablet [facility] - 500 MG EC 00:00: 23:59 (500 mg Medi jadiel tablet 00 :00 total) by Center mouth nightly for 90 days. lisinopriL 2019-10- Yes 20mg Q.5D Take [address] [facility] (PRINIVIL,Z 011-08 tablet (20 L ukes - ESTRIL) 20 00:00: 23:59 mg total) M edical MG tablet 00 :00 by mouth 2 Cent er (two) times daily for 90 days. NIFEdipine 2019-10- Yes 60mg QD Take [address] [facility] (ADALAT CC) 011-08 tablet (60 L ukes - 60 MG 24 hr 00:00: 23:59 mg total) Medical tablet 00 :00 by mouth Center daily for 90 days. benzonatate 2019-10- No 100mg Take [address] (TESSALON) 0-16 10-23 capsule [facility] - 100 MG 00:00: 23:59 (100 mg Medical capsule 00 :00 total) by [facility] mouth 4 (four) times daily before meals and nightly for 7 days. mINOCYCLine 2019-10- No 100mg Take [address] (MINOCIN,DY 0-16 10-19 capsule Luke s - NACIN) 100 00:00: 23:59 (100 mg Med ical MG capsule 00 :00 total) by [facility] mouth every 12 (twelve) hours for 3 days. atorvastati 2019-10- No 1{tbl} QD Take [address] [facility] (LIPITOR) 0-07 10-16 tablet by Ericka kes - 40 MG 00:00: 00:00 mouth Medical tablet 00 :00 nightly. [facility] divalproex 2019- No 1{tbl} QD Take [address] (DEPAKOTE) 9-28 10-16 tablet by Reji es - 500 MG EC 00:00: 00:00 mouth Medica l tablet 00 :00 nightly. [facility] NIFEdipine 2020- No 1{tbl} QD Take [address] (ADALAT CC) 9-24 10-16 tablet by Ericka kes - 60 MG 24 hr 00:00: 00:00 mouth Medi jadiel tablet 00 :00 daily. [facility] traZODone 2020- No 1{tbl} QD Take [address] [facility] [address] (DESYREL) 9-24 10-16 tablet by Luke s - 100 MG 00:00: 00:00 mouth Medical tablet 00 :00 nightly. [facility] traMADoL 2019- No 1{tbl} QD Take [address] [facility] (ULTRAM) 50 9-23 10-16 tablet by Ericka kes - mg tablet 00:00: 00:00 mouth Medica l 00 :00 nightly. [facility] lisinopriL 2020- No 1{tbl} Q.5D Take [address] (PRINIVIL,Z 9-21 10-16 tablet by Ericka kes - ESTRIL) 20 00:00: 00:00 mouth 2 Med ical MG tablet 00 :00 (two) Center times daily. oxybutynin 2019- No 1{tbl} QD Take [address] (DITROPAN) 8-30 10-16 tablet by Reji es - 5 MG tablet 00:00: 00:00 mouth Medi jadiel 00 :00 daily. [facility] Tradjenta 5 2019- No 1{tbl} QD Take [address] mg Tab 8-28 10-16 tablet by [facility] - 00:00: 00:00 mouth Medical 00 :00 daily. [facility] meloxicam 2019- No 1{tbl} QD Take [address] [facility] [address] (MOBIC) 15 8-25 10-16 tablet by Reji es - MG tablet 00:00: 00:00 mouth Medica l 00 :00 daily. [facility] metoprolol 2019- No 1{tbl} QD Take [address] tartrate 7-23 10-16 tablet by [facility] - (LOPRESSOR) 00:00: 00:00 mouth Medi jadiel 100 MG 00 :00 daily. Center tablet Vital Signs Vital Name Observation Time Observation Value Comments Source Systolic blood 2020-08-10 15:39:00 134 mm[Hg] [facility] Diastolic blood 2020-08-10 15:39:00 58 mm[Hg] [facility] Heart rate 2020-08-10 15:39:00 74 /min [facility] Body temperature 2020-08-10 15:39:00 37.33 Tanika [facility] Respiratory rate 2020-08-10 15:39:00 17 /min [facility] Oxygen saturation in 2020-08-10 15:39:00 95 /min [facility] - Arterial blood by Medical Ce nter Pulse oximetry Body weight 2020-08-07 06:00:00 117 kg [facility] BMI 2020-08-07 06:00:00 40.40 kg/m2 [facility] Body height 2020-08-05 12:30:00 170.2 cm [facility] Procedures Procedure Date / Time Performed Performing Clinician Sour e BASIC METABOLIC PANEL (7) 2020-08-10 03:36:00 Gabriele Whatley [facility] HEMOGLOBIN A1C 2020-08-10 03:36:00 [facility] 2020-08-10 03:36:00 [facility] CBC W/PLT COUNT & AUTO 2020-08-10 03:36:00 [facility] HEMOGLOBIN A1C 2020-08-09 15:09:00 Perla Scottka [facility] BASIC METABOLIC PANEL (7) 2020-08-09 06:17:00 [facility] CBC W/PLT COUNT & AUTO 2020-08-09 06:17:00 [facility] XR CHEST 1 VIEW 2020-08-08 07:16:00 [facility] - PORTABLE/BEDSIDE [facility] BASIC METABOLIC PANEL (7) 2020-08-08 05:27:00 [facility] CBC W/PLT COUNT & AUTO 2020-08-08 05:27:00 [facility] XR CHEST 1 VIEW 2020-08-07 19:39:00 [facility] - PORTABLE/BEDSIDE [facility] POCT-GLUCOSE METER 2020-08-07 16:02:00 Kalina Rodrigez [facility] PACEMAKER GEN & LEADS - 2020-08-07 12:42:00 Desirae Ray [facility] - INSERTION W/ GENERAL Caitlyn Medical Herib[address] ter ANESTHESIA (SING/DUAL/MULT) ECG 12-LEAD 2020-08-07 06:47:19 Unknown, Hl7 Doctor [facility] BASIC METABOLIC PANEL (7) 2020-08-07 03:57:00 [facility]/INR 2020-08-07 03:57:00 Kannan Mirza [facility] CBC W/PLT COUNT & AUTO 2020-08-07 03:57:00 Sabas Moralez [facility] CT BRAIN WITHOUT IV 2020-08-06 18:26:00 Shelbie Oneil [facility] POCT-GLUCOSE METER 2020-08-06 17:52:00 [facility] POCT-GLUCOSE METER 2020-08-06 12:09:00 [facility] ECG 12-LEAD 2020-08-06 12:00:34 Unknown, Hl7 Doctor [facility] ECHO W CONTRAST & DOPPLER 2020-08-06 08:42:00 Sabas Moralez [facility] BASIC METABOLIC PANEL (7) 2020-08-06 04:09:00 Gabriele Whatley [facility] MAGNESIUM 2020-08-06 04:09:00 Mary Ellen [place] [facility] CBC W/PLT COUNT & AUTO 2020-08-06 04:09:00 Sabas Moralez [facility] SARS-COV2/RT-PCR ([facility] & 2020-08-05 22:59:00 Hue Short rp [facility] - REF LABS) [facility] TROPONIN I 2020-08-05 19:10:00 Sabas Moralez [facility] BASIC METABOLIC PANEL (7) 2020-08-05 19:10:00 Wayne Marte [facility] BLOOD GAS, ARTERIAL 2020-08-05 19:10:00 Wayne Marte [facility] POCT-GLUCOSE METER 2020-08-05 18:33:00 [facility] XR CHEST 1 VIEW 2020-08-05 14:37:[address] [facility] PORTABLE[facility]BEDSIDE [facility] BLOOD GAS, ARTERIAL 2020-08-05 13:14:00 Sabas Moralez [facility] TROPONIN I 2020-08-05 13:13:00 Sabas Moralez [facility] COMPREHENSIVE METABOLIC 2020-08-05 13:13:[address] [facility] B-TYPE NATRIURETIC FACTOR 2020-08-05 13:13:[address] [facility] (BNP) [facility] VALPROIC ACID LEVEL, 2020-08-05 13:13:00 Sabas Moralez [facility] - TOTAL [facility] MAGNESIUM 2020-08-05 13:13:00 Wayne Marte [facility] CBC W/PLT COUNT & AUTO 2020-08-05 13:13:[address] [facility] DIFFERENTIAL [facility] XR CHEST 1 VIEW 2020-08-05 12:43:00 Sabas Moralez [facility] - PORTABLE/BEDSIDE [facility] ECG 12-LEAD 2020-08-05 12:15:55 Unknown, Hl7 Doctor [facility] ARRYTHMIA IMPLANT REPORT 2020-08-05 00:00:00 Provider, Default C [facility] - - SCAN Scanning [facility] Plan of Care Planned Activity Planned Date Details Comments Source Future Scheduled 2020-06-26 [facility]00 (#1) [code = [facility] INFLUENZA VACCINE (#1)] Future Scheduled 2019-10-15 [facility] 00:00:00 (procedure) [code = [facility] 56629286] Future Scheduled 1955 Screening for [facility] St Reji es - Test 00:00:00 malignant neoplasm Medical C enter of colon (procedure) [code = 551960527] Results Test Description Test Time Test Comments Results Result Sourc e Comments ARRYTHMIA IMPLANT 2020-08-21 Ordered by an [facility] REPORT - SCAN 14:21:09 unspecified - Medical provider. [facility] Hemoglobin A1c 2020-08-10 09:54:00 Test Item Value Reference Range Interpretation Comme nts Hemoglobin A1C (test code = 4548-4) 6.2 % 4.3-6.1 H CHANDRIKA (test code = CHANDRIKA) Director Underwriter Sales ID - ADMIN Lab Interpretation (test code = 98942-2) [facility]normal [facility] [id number] 09:54:00 Test Item Value Reference Range Interpretation Comments HEMOGLOBIN A1C (BEAKER) (test code = 6.2 % 4.3-6.1 H 368) Director Underwriter Sales ID - ADMINHEMOGLOBIN [id number] 09:45:00 Test Item Value Reference Range Interpretation Comments HEMOGLOBIN A1C (BEAKER) (test code = 6.1 % 4.3-6.1 368) Director Underwriter Sales ID - ADMINBasic metabolic [id number] 04:58:00 Test Item Value Reference Range Interpretation Comments Sodium (test code = 142 meq/L 501-430 5904-2) Potassium (test code = 4.0 meq/L 3.5-5.1 2823-3) Chloride (test code = 107 meq/L 98-107 2075-0) CO2 (test code = 27 meq/L 22-29 2028-9) BUN (test code = 23 mg/dL 7-21 H 3094-0) Creatinine (test code 1.35 mg/dL 0.57-1.25 H = 2160-0) Glucose (test code = 150 mg/dL 70-105 H 2345-7) Calcium (test code = 8.1 mg/dL 8.4-10.2 L 53819-7) EGFR (test code = 53 mL/min/1.73 [place] [address]-1) NOT ACCURATE CREATININE CLEARANCE IN PREDICTING GLOMERULAR FILTRATION RATE . ESTIMATED GFR I S NOT APPLICABLE FOR DIALYSIS PATIENTS. CHANDRIKA (test code = CHANDRIKA) Director Underwriter Sales ID - EDASI Lab Interpretation Abnormal (test code = 79614-4) [facility] 04:58:00 Test Item Value Reference Range Interpretation Comments Magnesium (test code = 1.7 mg/dL 1.6-2.6 80347-0) CHANDRIKA (test code = CHANDRIKA) Director Underwriter Sales ID - EDASI Lab Interpretation (test Normal code = 78217-2) [facility] [id number] 04:58:00 Test Item Value Reference Range Interpretation Comments SODIUM (BEAKER) 142 meq/L 136-145 (test code = 381) POTASSIUM (BEAKER) 4.0 meq/L 3.5-5.1 (test code = 379) CHLORIDE (BEAKER) 107 meq/L 98-107 (test code = 382) CO2 (BEAKER) (test 27 meq/L -29 code = 355) BLOOD UREA NITROGEN 23 mg/dL 7-21 H (BEAKER) (test code = 354) CREATININE (BEAKER) 1.35 mg/dL 0.57-1.25 H (test code = 358) GLUCOSE RANDOM 150 mg/dL 70-105 H (BEAKER) (test code = 652) CALCIUM (BEAKER) 8.1 mg/dL 8.4-10.2 L (test code = 697) EGFR (BEAKER) (test 53 mL/min/1.73 ESTIMA ARNOLDO GFR IS code = 1092) sq m NOT ACCURATE CREATININE CLEARANCE IN PREDICTING GLOMERULAR FILTRATION RATE . ESTIMATED GFR I S NOT APPLICABLE FOR DIALYSIS PATIEN TS. Director Underwriter Sales ID - [id number] 04:58:00 Test Item Value Reference Range Interpretation Comments MAGNESIUM (BEAKER) (test code = 1.7 mg/dL 1.6-2.6 627) Director Underwriter Sales ID - EDASICBC with platelet count + automated [id number] 04:36:00 Test Item Value Reference Range Interpretation Comments WBC (test code = 6690-2) 5.9 3.5- 10.5 K/L RBC (test code = 789-8) 3.26 4.63- 6.08 M/L L MCHC (test code = 786-4) 33.6 32.3- 36.5 GM/DL L Hematocrit (test code = 4544-3) 30.1 % 40.1-51 L MCV (test code = 787-2) 92.3 fL 79-92.2 H MCH (test code = 785-6) 31.0 pg 25.7-32.2 RDW (test code = 788-0) 14.7 % 11.6-14.4 H Platelets (test code = 777-3) 148 150- 450 K/CU MM L MPV (test code = 69839-9) 10.9 fL 9.4-12.4 nRBC (test code = 413) 0 0- 0 /100 WBC % Neutros (test code = 429) 56 % % Lymphs (test code = 430) 22 % % Monos (test code = 431) 17 % % Eos (test code = 432) 5 % % Baso (test code = 437) 0 % # Neutros (test code = 670) 3.29 1.78- 5.38 K/L # Lymphs (test code = 414) 1.27 1.32- 3.57 K/L L # Monos (test code = 415) 1.00 0.30- 0.82 K/L H # Eos (test code = 416) 0.28 0.04- 0.54 K/L # Baso (test code = 417) 0.01 0.01- 0.08 K/L Immature Granulocytes-Relative 0 % 0-1 (test code = 2801) Lab Interpretation (test code = Abnormal 23413-7) [facility] W/PLT COUNT & AUTO [id number] 04:36:00 Test Item Value Reference Range Interpretation Comments WHITE BLOOD CELL COUNT (BEAKER) 5.9 K/ L 3.5-10.5 (test code = 775) RED BLOOD CELL COUNT (BEAKER) 3.26 M/ L 4.63-6.08 L (test code = 761) HEMOGLOBIN (BEAKER) (test code = 10.1 GM/DL 13.7-17.5 L 410) HEMATOCRIT (BEAKER) (test code = 30.1 % 40.1-51.0 L 411) MEAN CORPUSCULAR VOLUME (BEAKER) 92.3 fL 79.0-92.2 H (test code = 753) MEAN CORPUSCULAR HEMOGLOBIN 31.0 pg 25.7-32.2 (BEAKER) (test code = 751) MEAN CORPUSCULAR HEMOGLOBIN CONC 33.6 GM/DL 32.3-36.5 (BEAKER) (test code = 752) RED CELL DISTRIBUTION WIDTH 14.7 % 11.6-14.4 H (BEAKER) (test code = 412) PLATELET COUNT (BEAKER) (test 148 K/CU MM 150-450 L code = 756) MEAN PLATELET VOLUME (BEAKER) 10.9 fL 9.4-12.4 (test code = 754) NUCLEATED RED BLOOD CELLS 0 /100 WBC 0-0 (BEAKER) (test code = 413) NEUTROPHILS RELATIVE PERCENT 56 % (BEAKER) (test code = 429) LYMPHOCYTES RELATIVE PERCENT 22 % (BEAKER) (test code = 430) MONOCYTES RELATIVE PERCENT 17 % (BEAKER) (test code = 431) EOSINOPHILS RELATIVE PERCENT 5 % (BEAKER) (test code = 432) BASOPHILS RELATIVE PERCENT 0 % (BEAKER) (test code = 437) NEUTROPHILS ABSOLUTE COUNT 3.29 K/ L 1.78-5.38 (BEAKER) (test code = 670) LYMPHOCYTES ABSOLUTE COUNT 1.27 K/ L 1.32-3.57 L (BEAKER) (test code = 414) MONOCYTES ABSOLUTE COUNT (BEAKER) 1.00 K/ L 0.30-0.82 H (test code = 415) EOSINOPHILS ABSOLUTE COUNT 0.28 K/ L 0.04-0.54 (BEAKER) (test code = 416) BASOPHILS ABSOLUTE COUNT (BEAKER) 0.01 K/ L 0.01-0.08 (test code = 417) IMMATURE GRANULOCYTES-RELATIVE 0 % 0-1 PERCENT (BEAKER) (test code = 2801) BASIC METABOLIC [id number] 07:31:00 Test Item Value Reference Range Interpretation Comments SODIUM (BEAKER) 144 meq/L 136-145 (test code = 381) POTASSIUM (BEAKER) 3.4 meq/L 3.5-5.1 L (test code = 379) CHLORIDE (BEAKER) 108 meq/L 98-107 H (test code = 382) CO2 (BEAKER) (test 27 meq/L 22-29 code = 355) BLOOD UREA NITROGEN 21 mg/dL 7-21 (BEAKER) (test code = 354) CREATININE (BEAKER) 1.19 mg/dL 0.57-1.25 (test code = 358) GLUCOSE RANDOM 139 mg/dL 70-105 H (BEAKER) (test code = 652) CALCIUM (BEAKER) 8.2 mg/dL 8.4-10.2 L (test code = 697) EGFR (BEAKER) (test 62 mL/min/1.73 ESTIMA ARNOLDO GFR IS code = 1092) sq m NOT ACCURATE CREATININE CLEARANCE IN PREDICTING GLOMERULAR FILTRATION RATE . ESTIMATED GFR I S NOT APPLICABLE FOR DIALYSIS PATIEN TS. Director Underwriter Sales ID - DEMOND [facility] W/PLT COUNT & AUTO [id number] 07:21:00 Test Item Value Reference Range Interpretation Comments WHITE BLOOD CELL COUNT (BEAKER) 6.5 K/ L 3.5-10.5 (test code = 775) RED BLOOD CELL COUNT (BEAKER) 3.44 M/ L 4.63-6.08 L (test code = 761) HEMOGLOBIN (BEAKER) (test code = 10.7 GM/DL 13.7-17.5 L 410) HEMATOCRIT (BEAKER) (test code = 31.8 % 40.1-51.0 L 411) MEAN CORPUSCULAR VOLUME (BEAKER) 92.4 fL 79.0-92.2 H (test code = 753) MEAN CORPUSCULAR HEMOGLOBIN 31.1 pg 25.7-32.2 (BEAKER) (test code = 751) MEAN CORPUSCULAR HEMOGLOBIN CONC 33.6 GM/DL 32.3-36.5 (BEAKER) (test code = 752) RED CELL DISTRIBUTION WIDTH 15.0 % 11.6-14.4 H (BEAKER) (test code = 412) PLATELET COUNT (BEAKER) (test 129 K/CU MM 150-450 L code = 756) MEAN PLATELET VOLUME (BEAKER) 11.0 fL 9.4-12.4 (test code = 754) NUCLEATED RED BLOOD CELLS 0 /100 WBC 0-0 (BEAKER) (test code = 413) NEUTROPHILS RELATIVE PERCENT 62 % (BEAKER) (test code = 429) LYMPHOCYTES RELATIVE PERCENT 16 % (BEAKER) (test code = 430) MONOCYTES RELATIVE PERCENT 18 % (BEAKER) (test code = 431) EOSINOPHILS RELATIVE PERCENT 3 % (BEAKER) (test code = 432) BASOPHILS RELATIVE PERCENT 0 % (BEAKER) (test code = 437) NEUTROPHILS ABSOLUTE COUNT 4.03 K/ L 1.78-5.38 (BEAKER) (test code = 670) LYMPHOCYTES ABSOLUTE COUNT 1.06 K/ L 1.32-3.57 L (BEAKER) (test code = 414) MONOCYTES ABSOLUTE COUNT (BEAKER) 1.18 K/ L 0.30-0.82 H (test code = 415) EOSINOPHILS ABSOLUTE COUNT 0.17 K/ L 0.04-0.54 (BEAKER) (test code = 416) BASOPHILS ABSOLUTE COUNT (BEAKER) 0.02 K/ L 0.01-0.08 (test code = 417) IMMATURE GRANULOCYTES-RELATIVE 0 % 0-1 PERCENT (BEAKER) (test code = 2801) RAD, CHEST, 1 VIEW, NON [id number] 08:26:00Reason for exam:->post-ppmShould this be performed at the bedside?->YesFINAL REPORT CLINICAL HISTORY: post-ppm TECHNIQUE: 1 view of the chest. COMPARISON: 08/07/2020 IMPRESSION: A left chest wall pacemaker is again seen without pneumothorax. There are no new infiltrates or significant effusions. Cardiomegaly is again noted. Signed: Michelle Tariqort Verified Date/Time: 08/08/2020 08:26:51 Reading Location: [facility] Radiology Reading Room XR chest 1 view portable / [id number] 08:26:00Interface, External Ris In - 08/08/2020 8:29 AM CDTFINAL REPORT CLINICAL HISTORY: post-ppm TECHNIQUE: 1 view of the chest. COMPARISON: 08/07/2020 IMPRESSION: A left chest wall pacemaker is again seen without pneumothorax. There are no new infiltrates or significant effusions. Cardiomegaly is again noted. Signed: Michelle Tariq Verified Date/Time: 08/08/2020 08:26:51 Reading Location: [facility] Radiology Reading [facility] [id number] 06:17:00 Test Item Value Reference Range Interpretation Comments SODIUM (BEAKER) 146 meq/L 136-145 H (test code = 381) POTASSIUM (BEAKER) 3.5 meq/L 3.5-5.1 (test code = 379) CHLORIDE (BEAKER) 111 meq/L 98-107 H (test code = 382) CO2 (BEAKER) (test 28 meq/L 22-29 code = 355) BLOOD UREA NITROGEN 22 mg/dL 7-21 H (BEAKER) (test code = 354) CREATININE (BEAKER) 1.18 mg/dL 0.57-1.25 (test code = 358) GLUCOSE RANDOM 116 mg/dL 70-105 H (BEAKER) (test code = 652) CALCIUM (BEAKER) 8.6 mg/dL 8.4-10.2 (test code = 697) EGFR (BEAKER) (test 62 mL/min/1.73 ESTIMA ARNOLDO GFR IS code = 1092) sq m NOT ACCURATE CREATININE CLEARANCE IN PREDICTING GLOMERULAR FILTRATION RATE . ESTIMATED GFR I S NOT APPLICABLE FOR DIALYSIS PATIEN TS. Director Underwriter Sales ID - DEMOND [facility] W/PLT COUNT & AUTO [id number] 05:59:00 Test Item Value Reference Range Interpretation Comments WHITE BLOOD CELL COUNT (BEAKER) 6.2 K/ L 3.5-10.5 (test code = 775) RED BLOOD CELL COUNT (BEAKER) 3.58 M/ L 4.63-6.08 L (test code = 761) HEMOGLOBIN (BEAKER) (test code = 10.8 GM/DL 13.7-17.5 L 410) HEMATOCRIT (BEAKER) (test code = 33.4 % 40.1-51.0 L 411) MEAN CORPUSCULAR VOLUME (BEAKER) 93.3 fL 79.0-92.2 H (test code = 753) MEAN CORPUSCULAR HEMOGLOBIN 30.2 pg 25.7-32.2 (BEAKER) (test code = 751) MEAN CORPUSCULAR HEMOGLOBIN CONC 32.3 GM/DL 32.3-36.5 (BEAKER) (test code = 752) RED CELL DISTRIBUTION WIDTH 15.1 % 11.6-14.4 H (BEAKER) (test code = 412) PLATELET COUNT (BEAKER) (test 104 K/CU MM 150-450 L code = 756) MEAN PLATELET VOLUME (BEAKER) 11.2 fL 9.4-12.4 (test code = 754) NUCLEATED RED BLOOD CELLS 0 /100 WBC 0-0 (BEAKER) (test code = 413) NEUTROPHILS RELATIVE PERCENT 66 % (BEAKER) (test code = 429) LYMPHOCYTES RELATIVE PERCENT 12 % (BEAKER) (test code = 430) MONOCYTES RELATIVE PERCENT 20 % (BEAKER) (test code = 431) EOSINOPHILS RELATIVE PERCENT 1 % (BEAKER) (test code = 432) BASOPHILS RELATIVE PERCENT 1 % (BEAKER) (test code = 437) NEUTROPHILS ABSOLUTE COUNT 4.07 K/ L 1.78-5.38 (BEAKER) (test code = 670) LYMPHOCYTES ABSOLUTE COUNT 0.76 K/ L 1.32-3.57 L (BEAKER) (test code = 414) MONOCYTES ABSOLUTE COUNT (BEAKER) 1.25 K/ L 0.30-0.82 H (test code = 415) EOSINOPHILS ABSOLUTE COUNT 0.07 K/ L 0.04-0.54 (BEAKER) (test code = 416) BASOPHILS ABSOLUTE COUNT (BEAKER) 0.03 K/ L 0.01-0.08 (test code = 417) IMMATURE GRANULOCYTES-RELATIVE 0 % 0-1 PERCENT (BEAKER) (test code = 2801) RAD, CHEST, 1 VIEW, NON [id number] 20:04:00Reason for exam:->post ppmShould this be performed at the bedside?->YesFINAL REPORT AP view of the chest dated 08/07/2020 CLINICAL INFORMATION: post ppm Comment: Heart is normal in size. Thoracic aorta is ectatic. AICD is present. Pulmonary vasculature is unremarkable. Lungs are clear. No pulmonary infiltrate or pleural effusion is present. Impression: Ectatic thoracic aorta. Signed: Jame Duckworth MDReport Verified Date/Time: 08/07/2020 20:04:22Reading Location: [address] Consult Reading Room POC-Glucose [id number] 16:15:00 Test Item Value Reference Range Interpretation Comments POC-Glucose Meter (test 132 mg/dL 70-110 H : TE STED AT [facility] code = 1538) [address] [facility], 770 30: Director Underwriter Sales/Techni sara ID = [id number] for SALOMON FLORES Lab Interpretation (test Abnormal code = 56200-0) [id number] 16:15:00 Test Item Value Reference Range Interpretation Comments POC-GLUCOSE METER 132 mg/dL 70-110 H : TESTED A T [facility] 6720 (NE) (test code = ZARIA Franz [facility], 1538) [id number]: Director Underwriter Sales/Techni sara ID = [id number] for SALOMON KRUSE ECG 12 [id number] 13:22:10Interface, External Ris In - 08/07/2020 1:22 PM CDTVentricular Rate 84 BPMAtrial Rate 84 BPMP-R Interval 220 msQRS Duration 98 msQ-T Interval 380 msQTC Calculation(Bazett) 449 msP [place] 64 degreesR [place] 55 degreesT [place] 61 degreesSinus rhythm with 1st degree A-V blockNonspecific ST and T wave abnormalityAbnormal ECGNo previous ECGs availableConfirmed by MD Silvia, Justino ([id number]) on 08/07/20201:22:08 [facility]BAS[facility] [id number] 06:15:00 Test Item Value Reference Range Interpretation Comments SODIUM (BEAKER) 144 meq/L 136-145 (test code = 381) POTASSIUM (BEAKER) 3.8 meq/L 3.5-5.1 Specimen moderately (test code = 379) hemolyzed CHLORIDE (BEAKER) 108 meq/L 98-107 H (test code = 382) CO2 (BEAKER) (test 25 meq/L 22-29 code = 355) BLOOD UREA NITROGEN 29 mg/dL 7-21 H (BEAKER) (test code = 354) CREATININE (BEAKER) 1.57 mg/dL 0.57-1.25 H Specimen moderately (test code = 358) hemolyzed GLUCOSE RANDOM 133 mg/dL 70-105 H (BEAKER) (test code = 652) CALCIUM (BEAKER) 9.3 mg/dL 8.4-10.2 (test code = 697) EGFR (BEAKER) (test 45 mL/min/1.73 ESTIMA ARNOLDO GFR IS code = 1092) sq m NOT ACCURATE CREATININE CLEARANCE IN PREDICTING GLOMERULAR FILTRATION RATE . ESTIMATED GFR I S NOT APPLICABLE FOR DIALYSIS PATIEN TS. Director Underwriter Sales ID - PIAYA LSpecimen slightly ictericCBC W/PLT COUNT & AUTO [id number] 04:26:00 Test Item Value Reference Range Interpretation Comments WHITE BLOOD CELL COUNT (BEAKER) 7.6 K/ L 3.5-10.5 (test code = 775) RED BLOOD CELL COUNT (BEAKER) 3.69 M/ L 4.63-6.08 L (test code = 761) HEMOGLOBIN (BEAKER) (test code = 11.3 GM/DL 13.7-17.5 L 410) HEMATOCRIT (BEAKER) (test code = 34.3 % 40.1-51.0 L 411) MEAN CORPUSCULAR VOLUME (BEAKER) 93.0 fL 79.0-92.2 H (test code = 753) MEAN CORPUSCULAR HEMOGLOBIN 30.6 pg 25.7-32.2 (BEAKER) (test code = 751) MEAN CORPUSCULAR HEMOGLOBIN CONC 32.9 GM/DL 32.3-36.5 (BEAKER) (test code = 752) RED CELL DISTRIBUTION WIDTH 15.2 % 11.6-14.4 H (BEAKER) (test code = 412) PLATELET COUNT (BEAKER) (test code 86 K/CU MM 150-450 L = 756) MEAN PLATELET VOLUME (BEAKER) 11.1 fL 9.4-12.4 (test code = 754) NUCLEATED RED BLOOD CELLS (BEAKER) 0 /100 WBC 0-0 (test code = 413) NEUTROPHILS RELATIVE PERCENT 69 % (BEAKER) (test code = 429) LYMPHOCYTES RELATIVE PERCENT 11 % (BEAKER) (test code = 430) MONOCYTES RELATIVE PERCENT 20 % (BEAKER) (test code = 431) EOSINOPHILS RELATIVE PERCENT 0 % (BEAKER) (test code = 432) BASOPHILS RELATIVE PERCENT 0 % (BEAKER) (test code = 437) NEUTROPHILS ABSOLUTE COUNT 5.27 K/ L 1.78-5.38 (BEAKER) (test code = 670) LYMPHOCYTES ABSOLUTE COUNT 0.81 K/ L 1.32-3.57 L (BEAKER) (test code = 414) MONOCYTES ABSOLUTE COUNT (BEAKER) 1.50 K/ L 0.30-0.82 H (test code = 415) EOSINOPHILS ABSOLUTE COUNT 0.02 K/ L 0.04-0.54 L (BEAKER) (test code = 416) BASOPHILS ABSOLUTE COUNT (BEAKER) 0.01 K/ L 0.01-0.08 (test code = 417) IMMATURE GRANULOCYTES-RELATIVE 0 % 0-1 PERCENT (BEAKER) (test code = 2801) Prothrombin time/[id number] 04:18:00 Test Item Value Reference Range Interpretation Comments Protime (test code = 15.9 11.9- 14.2 H 5902-2) seconds INR (test code = 1.31 <=5.90 6301-6) CHANDRIKA (test code = CHANDRIKA) Effective 03/23/2019: PT Reference Range ChangeNew: 11.9-14.2 Previous: 11.7-14.7 RECOMMENDED COUMADIN/WARFARIN INR THERAPY RANGESSTANDARD DOSE: 2.0-3.0 Includes: PROPHYLAXIS for venous thrombosis, systemic embolization; TREATMENT for venous thrombosis and/or pulmonary embolus.HIGH RISK: Target INR is 2.5-3.5 for patients wiht mechanical heart valves. Lab Interpretation Abnormal (test code = 51768-7) [facility] HospitalPROTHROMBIN [facility]/[id number] 04:18:00 Test Item Value Reference Range Interpretation Comments PROTIME (BEAKER) (test code = 15.9 seconds 11.9-14.2 H 759) INR (BEAKER) (test code = 370) 1.31 <=5.90 Effective 03/23/2019: PT Reference Range ChangeNew: 11.9-14.2 Previous: 11.7- 14.7RECOMMENDED COUMADIN/WARFARIN INR THERAPY RANGESSTANDARD DOSE: 2.0-3.0 Includes: PROPHYLAXIS for venous thrombosis, systemic embolization; TREATMENT for venous thrombosis and/or pulmonary embolus.HIGH RISK: Target INR is2.5-3.5 for patients wiht mechanical heart valves.POCT-GLUCOSE [id number] 21:14:00 Test Item Value Reference Range Interpretation Comments POC-GLUCOSE METER 138 mg/dL 70-110 H : TESTED A T [facility] 6720 (BEAKER) (test code = ZARIA Franz [facility], 1538) [address]: Director Underwriter Sales/Techni sara ID = [id number] for LUIS [place] CT, BRAIN, WITHOUT [id number] 18:41:00Unlisted Reason for Exam - Click Yes and Enter Reason Below->NoFINAL REPORT CT, BRAIN, WITHOUT IV CONTRAST INDICATION: Altered mental statusTECHNIQUE: Noncontrast axial imaging was obtained from the vertex to the skull base. Axial images were reconstructed using a bone algorithm. DOSE REDUCTION: Dose modulation, iterative reconstruction, and/or weight-based adjustment of the mA/kV was utilized to reduce the radiation dose to as low as reasonably achievable. COMPARISON: None. FINDINGS: Intracranial: No intracranial hemorrhage or abnormal extra-axial collection. No evidence of acute territorial infarct. No mass effect. No hydrocephalus. Generalized cerebral atrophy with ex vacuo dilatation of the ventricular system proportionate to sulci. Bilateral chronic appearing thalamic lacunar infarcts. Scattered foci of hypoattenuation within the periventricular and subcortical white matter are a nonspecific finding commonly attributed to chronic small vessel ischemic disease. Osseous structures: No fracture. No suspicious lesion. Paranasal sinuses and mastoid air cells: No evidence of sinusitis. Mastoids are clear. Orbital contents: Globes are intact. IMPRESSION: No acute intracranial hemorrhage or CT evidence of territorial infarct. If there is persistent clinical concern for intracranial pathology, MR examination is recommended for further characterization. Signed: Zahida Dobbs MDReport Verified Date/Time: 08/06/2020 18:41:07 CT brain without IV [id number] 18:41:00Interface, External Ris In - 08/06/2020 6:[address], BRAIN, WITHOUT IV CONTRAST INDICATION: Altered mental status TECHNIQUE: Noncontrast axial imaging was obtained from the vertex to the skull base. Axial images were reconstructed using a bone algorithm. DOSE REDUCTION: Dose modulation, iterative reconstruction, and/or weight-based adjustment of the mA/kV was utilized to reduce the radiation dose to as low as reasonably achievable. COMPARISON: None. FINDINGS: Intracranial: No intracranial hemorrhage or abnormal extra-axial collection. No evidence of acute territorial infarct. No mass effect. No hydrocephalus. Generalized cerebral atrophy with ex vacuo dilatation of the ventricular system proportionate to sulci. Bilateral chronic appearing thalamic lacunar infarcts. Scattered foci of hypoattenuation within the periventricular and subcortical white matter are a nonspecific finding commonly attributed to chronic small vessel ischemic disease. Osseous structur es: No fracture. No suspicious lesion. Paranasal sinuses and mastoid air cells: No evidence of sinusitis. Mastoids are clear. Orbital contents: Globes are intact. IMPRESSION: No acute intracranial hemorrhage or CT evidence of territorial infarct. If there is persistent clinical concern for intracranial pathology, MR examination is recommended for further characterization. Signed: Zahida Dobbs MDReport Verified Date/Time: 08/06/2020 18:41:07 [facility]MAGN[facility]UM2020-10-12 14:05:00 Test Item Value Reference Range Interpretation Comments MAGNESIUM (BEAKER) (test code = 1.8 mg/dL 1.6-2.6 627) Director Underwriter Sales ID - CAROLINA FECHO W CONTRAST & [id number] 13:55:02Ejection FractionSLEH ECHO HEARTLAB MKCKESSON CPACSInterface, External Ris In - 08/06/2020 1:55 PM CDTTransthoracic Echocardiography Report (TTE) Demographics Patient Name SHAREEEIS, Date of Study 08/06/2020 JAIRO Gender Male Visit Number [id number] Race Unknown Room Number C823 Number Date of 1955 Referring Physician Kalina Rodrigez MD Age 64 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 Amount - 2 mlHeight: 67 inches Weight: 117.03 kg (258lbs) BSA: 2.25 m^2 BMI: 40.41kg/m^2HR: 80 bpm BP: 115/101 mmHg Summary The left ventricle is chambersize (by PSLAX dimension) is small (male - LVIDd < 4.2cm) . Mild concentric LV hypertrophy. All of the LV segments contract normally . LVEF by Winn's method of disk assessment is normal (55-60%) . Degree of diastolic dysfunction (LAP assessment) is indeterminate. Unable to estimate peak systolic PA pressure; inadequate TR velocity signal. Signature Findings TechnicalQuality: Technically difficult exam. Left Ventricle LV endocardium is adequately visualized with IV ultrasound enhancing agent. The left ventricle is chamber size (by PSLAX dimension) is small (male - LVIDd < 4.2cm) . Mild concentric LV hypertrophy. All of the LV segments contract normally . LVEF by Winn's method of disk assessment is normal (55-60%). Degree of diastolic dysfunction (LAP assessment) is indeterminate. Left Atrium LA size is moderately enlarged . Right Ventricle Normal right ventricle structure and function. Right Atrium Normal right atrium. Aortic Valve Mild AoV cusp thickening. Mild AoV cusp calcification. Mitral Valve Mild MV leaflet thickening. Tricuspid Valve A trace of tricuspid regurgitation. Unable to estimate peak systolic PA pressure; inadequate TR velocity signal. Pulmonic Valve Normal PV structure and function by limited views and Doppler. Aorta Aortic root size (SInus of Valsalva diameter) is normal . Pericardium No evidence of pericardial effusion. IVC/SVC /PA/PV/Pleural The estimated RA pressure by IVC dynamics [...] Mean Gradient: 5.59 mmHg AV Area (continuity): 2cm^2 AV VTI: 26.02 cm AV DVI: 0.6 LVOT Peak Velocity: 0.94 m/s Peak Gradient: 3.53 mmHg Mean Velocity: 0.63 m/s Mean Gradient: 1.88 mmHg LVOT Diameter: 2.06 cm LVOT VTI: 15.63 cm LVOT Area: 3.33 cm^2 LVOT SV:52.07 ml LVOT CO: 4.17 l/min LVOT CI: 1.85 l/min/m^2[facility])2020-08-06 13:22:00 Test Item Value Reference Range Interpretation Comments SARS-COV2/RT-PCR Negative Not Detected, (test code = Negative, See 34315-8) external report for linked test SARS-COV-2 [facility] PERFORMING LAB (test code = 71055-9) CHANDRIKA (test code = Negative result for this CHANDRIKA) test determines that SARS-CoV-2 RNA was not present in the [...] of the Act. Fact Sheet for Healthcare Providers:https://www.[employer].Ofidium/sites/default/f sapna/product/documents/F act_Sheet_HC_Providers_L qbs_MIKY-VrL-6.pdf Fact Sheet for Healthcare Patients:https://www.[employer].Ofidium/sites/default/fi les/product/documents/Fa ct_Sheet_Patients_Lyra_S ARS-CoV-2.pdf Performing Laboratory:[facility] [place] [address] [facility])2020-08-06 13:22:00 Test Item Value Reference Range Interpretation Comments SARS-COV2/RT-PCR (test Negative Not Detected, Negative, code = 5092180) See external report for linked test SARS-COV-2 PERFORMING LAB [facility] (test code = 3725590) Negative result for this test determines that SARS-CoV-2 RNA was not present in the specimen above the Limit of Detection (LOD). However, Negative results do not preclude SARS-CoV-2 infection and should not be used as the sole basis for treatment or patient management decisions. Negative results mustbe combined with clinical observations, patient history, and epidemiological information. A false negative result may occur if a specimen is improperly collected, transported or handled. A false negative result should be considered if patient's recent exposures or clinical presentation indicate that COVID-19 (SARS-CoV-2) is likely and diagnostic tests for other causes of illness are negative. Re-testing should be considered in cases of suspected false negatives.The limit of detection for this assay is 800 copies/mL.This SARS CoV-2 test is a real-time RT-PCR test intended for the qualitative detection of nucleic acid from SARS-CoV-2 in a nasopharyngeal swab specimen collected from individuals susp ected of COVID-19 by their healthcare provider.This test has not been Food and Drug [...] is revoked under Section 564(g) of the Act.Fact Sheet for Healthcare Providers:https://www.[employer]/sites/default/files/product/documents/Fact_Shesada harrisf_XS_Uvhauyxpk_Jequ_QPKM-AtV-8.pdfFact Sheet for Healthcare Patients:https://www.[employer]/sites/default/files/product/ documents/Rajj_Wbctw_Kcfnidlf_Pobm_YRLE-CoB-0.pdfPerforming Laboratory:[facility], [place] [address]LSMV-DJSONEO METER 2020-08-06 12:21:00 Test Item Value Reference Range Interpretation Comments POC-GLUCOSE METER 180 mg/dL 70-110 H : TESTED A T [facility] 6720 (BEAKER) (test code = ZARIA Franz [facility], 1538) [address]: Director Underwriter Sales/Techni sara ID = [id number] for LUIS [place] BASIC METABOLIC [id number] 05:00:00 Test Item Value Reference Range Interpretation Comments SODIUM (BEAKER) 143 meq/L 136-145 (test code = 381) POTASSIUM (BEAKER) 4.9 meq/L 3.5-5.1 (test code = 379) CHLORIDE (BEAKER) 109 meq/L 98-107 H (test code = 382) CO2 (BEAKER) (test 25 meq/L 22-29 code = 355) BLOOD UREA NITROGEN 36 mg/dL 7-21 H (BEAKER) (test code = 354) CREATININE (BEAKER) 1.31 mg/dL 0.57-1.25 H (test code = 358) GLUCOSE RANDOM 191 mg/dL 70-105 H (BEAKER) (test code = 652) CALCIUM (BEAKER) 8.5 mg/dL 8.4-10.2 (test code = 697) EGFR (BEAKER) (test 55 mL/min/1.73 ESTIMA ARNOLDO GFR IS code = 1092) sq m NOT ACCURATE CREATININE CLEARANCE IN PREDICTING GLOMERULAR FILTRATION RATE . ESTIMATED GFR I S NOT APPLICABLE FOR DIALYSIS PATIEN TS. Director Underwriter Sales ID - DEMOND MCBC W/PLT COUNT & AUTO [id number] 04:43:00 Test Item Value Reference Range Interpretation Comments WHITE BLOOD CELL COUNT (BEAKER) 9.3 K/ L 3.5-10.5 (test code = 775) RED BLOOD CELL COUNT (BEAKER) 4.01 M/ L 4.63-6.08 L (test code = 761) HEMOGLOBIN (BEAKER) (test code = 12.2 GM/DL 13.7-17.5 L 410) HEMATOCRIT (BEAKER) (test code = 36.7 % 40.1-51.0 L 411) MEAN CORPUSCULAR VOLUME (BEAKER) 91.5 fL 79.0-92.2 (test code = 753) MEAN CORPUSCULAR HEMOGLOBIN 30.4 pg 25.7-32.2 (BEAKER) (test code = 751) MEAN CORPUSCULAR HEMOGLOBIN CONC 33.2 GM/DL 32.3-36.5 (BEAKER) (test code = 752) RED CELL DISTRIBUTION WIDTH 15.1 % 11.6-14.4 H (BEAKER) (test code = 412) PLATELET COUNT (BEAKER) (test code 74 K/CU MM 150-450 L = 756) MEAN PLATELET VOLUME (BEAKER) 12.0 fL 9.4-12.4 (test code = 754) NUCLEATED RED BLOOD CELLS (BEAKER) 0 /100 WBC 0-0 (test code = 413) NEUTROPHILS RELATIVE PERCENT 80 % (BEAKER) (test code = 429) LYMPHOCYTES RELATIVE PERCENT 7 % (BEAKER) (test code = 430) MONOCYTES RELATIVE PERCENT 12 % (BEAKER) (test code = 431) EOSINOPHILS RELATIVE PERCENT 1 % (BEAKER) (test code = 432) BASOPHILS RELATIVE PERCENT 0 % (BEAKER) (test code = 437) NEUTROPHILS ABSOLUTE COUNT 7.42 K/ L 1.78-5.38 H (BEAKER) (test code = 670) LYMPHOCYTES ABSOLUTE COUNT 0.68 K/ L 1.32-3.57 L (BEAKER) (test code = 414) MONOCYTES ABSOLUTE COUNT (BEAKER) 1.08 K/ L 0.30-0.82 H (test code = 415) EOSINOPHILS ABSOLUTE COUNT 0.05 K/ L 0.04-0.54 (BEAKER) (test code = 416) BASOPHILS ABSOLUTE COUNT (BEAKER) 0.02 K/ L 0.01-0.08 (test code = 417) IMMATURE GRANULOCYTES-RELATIVE 0 % 0-1 PERCENT (BEAKER) (test code = 2801) Troponin [id number] 19:55:00 Test Item Value Reference Range Interpretation Comments Troponin I (test code = 0.02 ng/mL 0-0.03 85937-4) CHANDRIKA (test code = CHANDRIKA) Troponin I (TnI) levels must be interpreted in the context of the presenting symptoms and the clinical findings. Elevated TnI levels indicate myocardial damage, but are not specific for ischemic heart disease. Elevated TnI levels are seen in patients with other cardiac conditions (including myocarditis and congestive heart failure), and slight TnI elevations occur in patients with other conditions, including sepsis, renal failure, acidosis, acute neurological disease, and persistent tachyarrhythmia.Opera tor ID - RM Lab Interpretation (test Normal code = 83510-5) [facility] [id number] 19:55:00 Test Item Value Reference Range Interpretation Comments TROPONIN I (BEAKER) (test code = 0.02 ng/mL 0.00-0.03 397) Troponin I (TnI) levels must be interpreted in the context of the presenting symptoms and the clinical findings. Elevated TnI levels indicate myocardial damage, but are not specific for ischemic heart disease. Elevated TnI levels are seen in patients with other cardiac conditions (including myocarditis and congestive heart failure), and slight TnI elevations occur in patients with other conditions, including sepsis, renal failure, acidosis, acute neurological disease, and persistent tachyarrhythmia.Director Underwriter Sales ID - RMBASIC METABOLIC PANEL 2020-08-05 19:47:00 Test Item Value Reference Range Interpretation Comments SODIUM (BEAKER) 142 meq/L 136-145 (test code = 381) POTASSIUM (BEAKER) 4.2 meq/L 3.5-5.1 (test code = 379) CHLORIDE (BEAKER) 110 meq/L 98-107 H (test code = 382) CO2 (BEAKER) (test 22 meq/L 22-29 code = 355) BLOOD UREA NITROGEN 40 mg/dL 7-21 H (BEAKER) (test code = 354) CREATININE (BEAKER) 1.44 mg/dL 0.57-1.25 H (test code = 358) GLUCOSE RANDOM 140 mg/dL 70-105 H (BEAKER) (test code = 652) CALCIUM (BEAKER) 8.8 mg/dL 8.4-10.2 (test code = 697) EGFR (BEAKER) (test 50 mL/min/1.73 ESTIMA ARNOLDO GFR IS code = 1092) sq m NOT ACCURATE CREATININE CLEARANCE IN PREDICTING GLOMERULAR FILTRATION RATE . ESTIMATED GFR I S NOT APPLICABLE FOR DIALYSIS PATIEN TS. Director Underwriter Sales ID - RMBlood gas, [id number] 19:17:00 Test Item Value Reference Range Interpretation Comments pH, Arterial (test code = 2744-1) 7.54 7.35-7.45 H pCO2, Arterial (test code = 27 35- 45 mm Hg L 2018-) pO2, Arterial (test code = 2703-7) 136 80- 90 mm Hg H O2 Sat, Arterial (test code = 99.1 % 96-97 H 8-6) HCO3, Arterial (test code = 23 mmol/L 21-29 1959-4) Base Excess, Arterial (test code = 0.8 mmol/L -2-3 1925-7) Patient Temperature (test code = 36.0 8310-5) FIO2 (test code = 1819) 50 Lab Interpretation (test code = Abnormal 96338-9) [facility] HospitalBL[facility] G[facility], [id number] 19:17:00 Test Item Value Reference Range Interpretation Comments PH ARTERIAL (BEAKER) (test code = 7.54 7.35-7.45 H 383) PCO2 ARTERIAL (BEAKER) (test code 27 mm Hg 35-45 L = 384) PO2 ARTERIAL (BEAKER) (test code = 136 mm Hg 80-90 H 385) O2 SATURATION ARTERIAL (BEAKER) 99.1 % 96.0-97.0 H (test code = 386) HCO3 ARTERIAL (BEAKER) (test code 23 mmol/L 21-29 = 388) BASE EXCESS ARTERIAL (BEAKER) 0.8 mmol/L -2.0-3.0 (test code = 387) PATIENT TEMPERATURE (BEAKER) (test 36.0 code = 1818) FIO2 (BEAKER) (test code = 1819) 50.0 [id number] 19:11:00 Test Item Value Reference Range Interpretation Comments MAGNESIUM (BEAKER) 2.1 mg/dL 1.6-2.6 Specimen slightly (test code = 627) hemolyzed Director Underwriter Sales ID - RMPOCT-GLUCOSE [id number] 18:45:00 Test Item Value Reference Range Interpretation Comments POC-GLUCOSE METER 133 mg/dL 70-110 H : TESTED A T [facility] 6720 (BEAKER) (test code = ZARIA Franz [place], 1538) [address]: Director Underwriter Sales/Techni sara ID = [id number] for LUIS [place]NA[place] RAD, CHEST, 1 VIEW, NON [id number] 18:01:00Reason for exam:->post TVP placementShould this be performed at the bedside?->YesFINAL REPORT RAD, CHEST, 1 VIEW, NON DEPT CLINICAL INDICATION: post TVP placem ent TECHNIQUE: AP view of the chest COMPARISON: Radiograph 08/05/2020 at 12:43 PM FINDINGS: ET tube and enteric tube are unchanged. Persistent volume loss in the right lung with rightward midline shiftand elevation of the right hemidiaphragm. No new focal consolidation. No sizable pleural effusion or pneumothorax. Cardiomediastinal silhouette, cynthia, and pulmonary vasculature are unchanged. IMPRESSION:No significant interval change. Signed: Zahida Dobbs Verified Date/Time: 08/05/2020 18:01:39 Valproic acid level, total 2020-08-05 14:05:00 Test Item Value Reference Range Interpretation Comments Valproic Acid, Total 30 ug/mL 50-100 L (test code = 4086-5) CHANDRIKA (test code = CHANDRIKA) Therapeutic range for some clinical conditions may be >100 ug/mLOperator ID - RM Lab Interpretation (test Abnormal code = 67436-7) [facility] HospitalVALPROIC ACID LEVEL, [id number] 14:05:00 Test Item Value Reference Range Interpretation Comments VALPROIC ACID TOTAL (BEAKER) (test 30 ug/mL 50-100 L code = 924) Therapeutic range for some clinical conditions may be >100 ug/mLOperator ID - RMComprehensive metabolic [id number] 14:03:00 Test Item Value Reference Range Interpretation Comments Protein, Total (test 7.6 6.0- 8.3 gm/dL Speci men slightly code = 2885-2) hemolyzed Albumin (test code = 3.8 g/dL 3.5-5 Specime n slightly 72513-6) hemolyzed Alkaline Phosphatase 104 U/L 40-150 (test code = 6768-6) Total Bilirubin (test 1.1 mg/dL 0.2-1.2 Specim en slightly code = 1975-2) hemolyzed Sodium (test code = 139 meq/L 401-084 9060-2) Potassium (test code = 6.3 meq/L 3.5-5.1 HH Speci men slightly 2823-3) hemolyzed Chloride (test code = 109 meq/L 98-107 H 2075-0) CO2 (test code = 24 meq/L 22-29 8-9) BUN (test code = 43 mg/dL 7-21 H 3094-0) Creatinine (test code 1.72 mg/dL 0.57-1.25 H Specim en slightly = 2160-0) hemolyzed Glucose (test code = 187 mg/dL 70-105 H 2345-7) Calcium (test code = 8.6 mg/dL 8.4-10.2 22996-1) AST (test code = 40 U/L 5-34 H Specimen sl ightly 1920-8) hemolyzed ALT (test code = 83 U/L 6-55 H Specimen sl ightly 1742-6) hemolyzed EGFR (test code = 40 mL/min/1.73 [place] [address]-8) NOT ACCURATE CREATININE CLEARANCE IN PREDICTING GLOMERULAR FILTRATION RATE . ESTIMATED GFR I S NOT APPLICABLE FOR DIALYSIS PATIENTS. CHANDRIKA (test code = CHANDRIKA) Director Underwriter Sales ID - ROSMAHING Lab Interpretation Abnormal (test code = 09516-1) [facility] HospitalCOMPREHENSIVE METABOLIC [id number] 14:03:00 Test Item Value Reference Range Interpretation Comments TOTAL PROTEIN 7.6 gm/dL 6.0-8.3 Specimen sligh tly (BEAKER) (test code = hemoly zed 770) ALBUMIN (BEAKER) 3.8 g/dL 3.5-5.0 Specimen sl ightly (test code = 1145) hemolyzed ALKALINE PHOSPHATASE 104 U/L 40-150 (BEAKER) (test code = 346) BILIRUBIN TOTAL 1.1 mg/dL 0.2-1.2 Specimen sli ghtly (BEAKER) (test code = hemoly zed 377) SODIUM (BEAKER) (test 139 meq/L 136-145 code = 381) POTASSIUM (BEAKER) 6.3 meq/L 3.5-5.1 HH Specimen slightly (test code = 379) hemolyzed CHLORIDE (BEAKER) 109 meq/L 98-107 H (test code = 382) CO2 (BEAKER) (test 24 meq/L 22-29 code = 355) BLOOD UREA NITROGEN 43 mg/dL 7-21 H (BEAKER) (test code = 354) CREATININE (BEAKER) 1.72 mg/dL 0.57-1.25 H Specimen slightly (test code = 358) hemolyzed GLUCOSE RANDOM 187 mg/dL 70-105 H (BEAKER) (test code = 652) CALCIUM (BEAKER) 8.6 mg/dL 8.4-10.2 (test code = 697) AST (SGOT) (BEAKER) 40 U/L 5-34 H Specimen slightly (test code = 353) hemolyzed ALT (SGPT) (BEAKER) 83 U/L 6-55 H Specimen slightly (test code = 347) hemolyzed EGFR (BEAKER) (test 40 mL/min/1.73 ESTIMA ARNOLDO GFR IS code = 1092) sq m NOT ACCURATE CREATININE CLEARANCE IN PREDICTING GLOMERULAR FILTRATION RATE . ESTIMATED GFR I S NOT APPLICABLE FOR DIALYSIS PATIEN TS. Director Underwriter Sales ID - DAYAGB-type Natriuretic Factor (BNP)2020-08-05 13:59:00 Test Item Value Reference Range Interpretation Comments BNP (test code = 51172-5) 29 pg/mL 0-100 CHANDRIKA (test code = CHANDRIKA) Director Underwriter Sales ID - ROSIANG Lab Interpretation (test Normal code = 76326-2) [facility]TR[facility] [id number] 13:59:00 Test Item Value Reference Range Interpretation Comments TROPONIN I (BEAKER) (test code = 0.01 ng/mL 0.00-0.03 397) Troponin I (TnI) levels must be interpreted in the context of the presenting symptoms and the clinical findings. Elevated TnI levels indicate myocardial damage, but are not specific for ischemic heart disease. Elevated TnI levels are seen in patients with other cardiac conditions (including myocarditis and congestive heart failure), and slight TnI elevations occur in patients with other conditions, including sepsis, renal failure, acidosis, acute neurological disease, and persistent tachyarrhythmia.Director Underwriter Sales ID - KORIN-TYPE NATRIURETIC FACTOR (BNP)2020-08-05 13:59:00 Test Item Value Reference Range Interpretation Comments B-TYPE NATRIURETIC PEPTIDE (BEAKER) 29 pg/mL 0-100 (test code = 700) Director Underwriter Sales ID - KORINLOOD GAS, [id number] 13:29:00 Test Item Value Reference Range Interpretation Comments PH ARTERIAL (BEAKER) (test code = 7.44 7.35-7.45 383) PCO2 ARTERIAL (BEAKER) (test code 35 mm Hg 35-45 = 384) PO2 ARTERIAL (BEAKER) (test code 187 mm Hg 80-90 H = 385) O2 SATURATION ARTERIAL (BEAKER) 99.4 % 96.0-97.0 H (test code = 386) HCO3 ARTERIAL (BEAKER) (test code 23 mmol/L 21-29 = 388) BASE EXCESS ARTERIAL (BEAKER) -0.6 mmol/L -2.0-3.0 (test code = 387) PATIENT TEMPERATURE (BEAKER) 36.0 (test code = 1818) FIO2 (BEAKER) (test code = 1819) 100.0 CBC W/PLT COUNT & AUTO [id number] 13:29:00 Test Item Value Reference Range Interpretation Comments WHITE BLOOD CELL COUNT (BEAKER) 8.7 K/ L 3.5-10.5 (test code = 775) RED BLOOD CELL COUNT (BEAKER) 3.67 M/ L 4.63-6.08 L (test code = 761) HEMOGLOBIN (BEAKER) (test code = 11.2 GM/DL 13.7-17.5 L 410) HEMATOCRIT (BEAKER) (test code = 33.2 % 40.1-51.0 L 411) MEAN CORPUSCULAR VOLUME (BEAKER) 90.5 fL 79.0-92.2 (test code = 753) MEAN CORPUSCULAR HEMOGLOBIN 30.5 pg 25.7-32.2 (BEAKER) (test code = 751) MEAN CORPUSCULAR HEMOGLOBIN CONC 33.7 GM/DL 32.3-36.5 (BEAKER) (test code = 752) RED CELL DISTRIBUTION WIDTH 15.1 % 11.6-14.4 H (BEAKER) (test code = 412) PLATELET COUNT (BEAKER) (test code 97 K/CU MM 150-450 L = 756) MEAN PLATELET VOLUME (BEAKER) 11.8 fL 9.4-12.4 (test code = 754) NUCLEATED RED BLOOD CELLS (BEAKER) 0 /100 WBC 0-0 (test code = 413) NEUTROPHILS RELATIVE PERCENT 82 % (BEAKER) (test code = 429) LYMPHOCYTES RELATIVE PERCENT 9 % (BEAKER) (test code = 430) MONOCYTES RELATIVE PERCENT 8 % (BEAKER) (test code = 431) EOSINOPHILS RELATIVE PERCENT 1 % (BEAKER) (test code = 432) BASOPHILS RELATIVE PERCENT 0 % (BEAKER) (test code = 437) NEUTROPHILS ABSOLUTE COUNT 7.16 K/ L 1.78-5.38 H (BEAKER) (test code = 670) LYMPHOCYTES ABSOLUTE COUNT 0.74 K/ L 1.32-3.57 L (BEAKER) (test code = 414) MONOCYTES ABSOLUTE COUNT (BEAKER) 0.72 K/ L 0.30-0.82 (test code = 415) EOSINOPHILS ABSOLUTE COUNT 0.08 K/ L 0.04-0.54 (BEAKER) (test code = 416) BASOPHILS ABSOLUTE COUNT (BEAKER) 0.01 K/ L 0.01-0.08 (test code = 417) IMMATURE GRANULOCYTES-RELATIVE 0 % 0-1 PERCENT (BEAKER) (test code = 2801) RAD, CHEST, 1 VIEW, NON [id number] 13:12:00Reason for exam:- >intubationShould this be performed at the bedside?->YesFINAL REPORT Chest, one view History: Intubation Comparison: none Findings:There is fullness of the right pulmonary apex. This is difficult to evaluate given significant patient rotation. If clinically feasible, recommend a repeat evaluation with neutral patient positioning to exclude a right apical mass. There is a hazy density at the left lung base, indeterminant for atelectas is or pneumonia. Lungs are otherwise clear. Cardiac silhouette is accentuated by portable technique.Endotracheal and nasogastric tubes appear in satisfactory position. No pleural effusion or pneumothorax. Signed: Mike Gonsalez MDReport Verified Date/Time: 08/05/2020 13:12:04 Reading Location: [facility] B1 C013T Transitional Reading Room 01:12 PM
--- NOTE | 2020-09-12 18:00 | RAD REPORT ---
EXAM DESCRIPTION: CT - Chest Abd Pelvis Wo Con - 09/12/2020 5:36 pm CLINICAL HISTORY: Chest and abdominal pain COMPARISON: none TECHNIQUE: Computed axial tomography of the chest, abdomen and pelvis was obtained. Oral contrast wa s given. IV contrast was not requested. All CT scans are performed using dose optimization technique as appropriate and may include automated exposure control or mA/KV adjustment according to patient size. FINDINGS: The evaluation of mediastinum, cynthia, vessels and solid organs is limited secondary to the lack of IV contrast administration No mediastinal or hilar lymphadenopathy is seen. A pleural effusion is not present. A pericardial effusion is not seen. Lungs are clear The liver, spleen, pancreas, and adrenals appear grossly normal The bladder is distended. Stranding is present within the fat adjacent to the bladder. Mild bilateral hydronephrosis and hydroureter. Rectum is mildly distended with stool. Small left inguinal hernia contains fat IMPRESSION: Mild hydronephrosis and hydroureter may be secondary to the bladder being distended Stranding within the fat adjacent to the bladder may indicate a cystitis
--- NOTE | 2020-09-12 18:00 | RAD REPORT ---
EXAM DESCRIPTION: Hoa Single View09/12/2020 5:20 pm CLINICAL HISTORY: Chest pain COMPARISON: July 2020 FINDINGS: The lungs appear clear of acute infiltrate. The heart is normal size. Pacemaker leads in place IMPRESSION: No acute abnormalities displayed
--- NOTE | 2020-09-12 18:08 | RAD REPORT ---
EXAM DESCRIPTION: CT - Head Brain Wo Cont - 09/12/2020 5:36 pm CLINICAL HISTORY: Alteration of awareness/confusion COMPARISON: July 2020 TECHNIQUE: Computed axial tomography of the head was obtained. IV contrast was not requested. All CT scans are performed using dose optimization technique as appropriate and may include automated exposure control or mA/KV adjustment according to patient size. FINDINGS: An intracranial bleed is not seen . The ventricles are normal in caliber. No extra-axial fluid collection is noted. Old lacunar infarcts involve the left thalamus and right basal ganglia. Fluid within the sinuses/ mastoids is not seen. IMPRESSION: No acute intracranial abnormality is seen.
[2020-09-12 18:10] LABS: ALT/SGPT 24 U/L (12-78); AST/SGOT 15 U/L (15-37); Albumin 2.9 g/dL (3.4-5.0); Alkaline Phosphatase 115 U/L (45-117); BUN Blood Urea Nitrogen 48 mg/dL (7-18); Bicarbonate 24 mmol/L (21-32); Bilirubin Direct 0.2 mg/dL (0-0.2); Bilirubin Total 1.2 mg/dL (0.2-1.0); Glucose Level 139 mg/dL (74-106); Magnesium 2.6 mg/dL (1.8-2.4); NT PRO-BNP 218 pg/mL (<125); Potassium 4.2 mmol/L (3.5-5.1); Protein, Total 7.6 g/dL (6.4-8.2); Sodium Level 140 mmol/L (136-145); Troponin (Emerg Dept Use Only) < 0.02 ng/mL (0.0-0.045)
[2020-09-12] MEDS ORDERED: NA CHLORIDE 0.9% 1,000 ML ONE (19:17)
--- NOTE | 2020-09-12 19:27 | EDPHYS ---
Physician Documentation [facility] Name: Raphael Hoyos Age: 64 yrs Sex: Male : 1955 Arrival Date: 09/12/2020 Time: 16:20 Bed 30 Private MD: ED Physician Ector Douglas HPI: 09/12 16:59 This 64 yrs old Male presents to ER via EMS with complaints of Altered Mental cp Status. 16:59 The patient presents with decreased mental status. Onset: The symptoms/episode cp began/occurred yesterday. Possible causes: unknown. Historical: - Allergies: 17:09 NKA; iw - PMHx: 17:09 CVA; Diabetes - IDDM; GERD; Hypertension; TIA; iw ROS: 17:00 Unable to obtain ROS due to altered mental status. cp Exam: 17:05 Constitutional: The patient appears in no acute distress, non-diaphoretic, non-toxic, cp well developed, well nourished, obese. 17:05 Head/Face: Normocephalic, atraumatic. cp 17:05 Eyes: Periorbital structures: appear normal, Pupils: equal, round, and reactive to light and accomodation, Conjunctiva: normal, no exudate, no injection, Sclera: no appreciated abnormality, Lids and lashes: appear normal, bilaterally. 17:05 ENT: External ear(s): are unremarkable, Nose: is normal, Mouth: Lips: dry, Oral mucosa: dry, Posterior pharynx: Airway: no evidence of obstruction, patent. 17:05 Neck: ROM/movement: Meningeal signs: are not present, nuchal rigidity, is not appreciated. 17:05 Chest/axilla: Inspection: normal, Palpation: is normal, no crepitus, no tenderness. 17:05 Cardiovascular: Rate: normal, Rhythm: regular, Edema: ankle edema, that is mild, JVD: is not appreciated. 17:05 Respiratory: the patient does not display signs of respiratory distress, Respirations: normal, no use of accessory muscles, no retractions, labored breathing, is not present, Breath sounds: are clear throughout, no decreased breath sounds, no stridor, no wheezing. 17:05 Abdomen/GI: Inspection: abdomen appears normal, Bowel sounds: active, all quadrants, Palpation: soft, in all quadrants, moderate abdominal tenderness, in the right lower quadrant and left lower quadrant, rebound tenderness, is not appreciated, voluntary guarding, is elicited in the right lower quadrant and left lower quadrant. 17:05 Skin: cellulitis, is not appreciated, no rash present. 17:05 Neuro: Orientation: Not oriented to person, place, situation, Mentation: responsive to pain. 17:55 ECG was reviewed by the Attending Physician. Vital Signs: 17:54 BP 139 / 67; Pulse 87; Resp 18 S; Temp 98.9; Pulse Ox 97% on R/A; Weight 99.79 kg; iw Height 5 ft. 8 in. (172.72 cm); Pain 8/10; 19:00 BP 120 / 80; Pulse 73; Resp 16; Pulse Ox 98% on R/A; jb4 20:00 BP 123 / 80; Pulse 65; Resp 16; Pulse Ox 99% on R/A; jb4 17:54 Body Mass Index 33.45 (99.79 kg, 172.72 cm) iw MDM: 16:38 Patient medically screened. 17:20 Differential Diagnosis: CVA, electrolyte abnormality, hypoglycemia, pneumonia, sepsis, cp UTI, volume depletion. 19:22 Physician consultation: Best GONZALEZ was contacted at 19:23, regarding admission, to the medical/surgical unit. patient's condition, and will see patient in ED, shortly. 19:25 Data reviewed: vital signs, nurses notes, lab test result(s), EKG, radiologic studies, cp CT scan, plain films, I have discussed the patient's presentation/case with the attending Emergency Department Physician; and as a result, I will admit patient. 19:25 Test interpretation: by ED physician or midlevel provider: ECG. Response to treatment: the patient's symptoms have markedly improved after treatment, and as a result, I will admit patient. 09/12 16:41 Order name: Procalcitonin; Complete Time: 18:15 09/12 20:37 Interpretation: Procalcitonin 0.08; Reviewed. 09/12 16:41 Order name: Urine Microscopic Only; Complete Time: 19:36 09/12 20:36 Interpretation: Normal except: URBC 5-10. 09/12 16:41 Order name: Lactate; Complete Time: 18:15 09/12 18:16 Interpretation: Reviewed. cp 09/12 16:41 Order name: Blood Culture Adult (2) cp 09/12 16:41 Order name: Basic Metabolic Panel; Complete Time: 18:15 cp 09/12 18:17 Interpretation: Normal except: CL 108; GLUC 139; BUN 48; CRE 1.63; GFR 43; CA 8.2. cp 09/12 16:41 Order name: CBC with Diff; Complete Time: 21:09 cp 09/12 20:36 Interpretation: Normal except: RBC 2.99; HGB 9.0; HCT 25.8; LYM% 7.8; MN% 16.6; LYMA cp 0.6. 09/12 16:41 Order name: CT Head Brain wo Cont; Complete Time: 18:15 cp 09/12 18:16 Interpretation: Report reviewed. cp 09/12 16:41 Order name: LFT's; Complete Time: 18:15 cp 09/12 18:16 Interpretation: Normal except: BILIT 1.2; ALB 2.9; GLOB 4.7; A/G 0.6. cp 09/12 16:41 Order name: Magnesium; Complete Time: 18:15 cp 09/12 16:41 Order name: NT PRO-BNP; Complete Time: 18:15 cp 09/12 16:41 Order name: PT-INR; Complete Time: 20:36 cp 09/12 16:41 Order name: Troponin (emerg Dept Use Only); Complete Time: 18:15 cp 09/12 18:16 Interpretation: Reviewed. 09/12 18:59 Order name: Urine Dipstick--Ancillary (enter results); Complete Time: 20:36 tt3 09/12 20:40 Order name: CBC Smear Scan; Complete Time: 21:09 EDMS 09/12 16:41 Order name: Urine Dipstick-Ancillary (obtain specimen); Complete Time: 19:03 cp 09/12 16:41 Order name: Cath; Complete Time: 19:03 cp 09/12 16:41 Order name: XRAY Chest (1 view); Complete Time: 18:15 cp 09/12 16:41 Order name: EKG; Complete Time: 16:42 cp 09/12 16:41 Order name: Cardiac monitoring; Complete Time: 17:26 cp 09/12 16:41 Order name: EKG - Nurse/Tech; Complete Time: 18:17 cp 09/12 16:41 Order name: IV Saline Lock; Complete Time: 17:16 cp 09/12 16:41 Order name: Labs collected and sent; Complete Time: 17:16 cp 09/12 16:41 Order name: O2 Per Protocol; Complete Time: 17:16 cp 09/12 16:41 Order name: O2 Sat Monitoring; Complete Time: 17:16 cp 09/12 17:32 Order name: Chest Abd Pelvis Wo Con; Complete Time: 18:15 EDMS 09/12 19:25 Order name: Wang; Complete Time: 20:08 cp EC:55 Rate is 65 beats/min. Rhythm is regular, Paced. NH interval is normal. QRS interval is cp normal. QT interval is normal. T waves are Inverted in leads aVL, aVR. Interpreted by me. Reviewed by me. Administered Medications: 09:48 Drug: Rocephin 1 grams Route: IV; Rate: calculated rate; Site: left forearm; jb4 19:50 Follow up: IV Status: Completed infusion; IV Intake: 10ml jb4 19:10 Drug: NS 0.9% 500 ml Route: IV; Rate: bolus; Site: left forearm; jb4 19:42 Follow up: Response: No adverse reaction; IV Status: Completed infusion; IV Intake: jb4 500ml 19:45 Drug: NS 0.9% 1000 ml Route: IV; Rate: 75 ml/hr; Site: left forearm; jb4 Disposition: 20:00 Chart complete. cp Disposition: 09/12/20 19:26 Hospitalization ordered by David Garza for Observation. Preliminary diagnosis are Altered mental status, unspecified, Dehydration, Urinary tract infection, site not specified. - Bed requested for Telemetry/MedSurg (observation). - Status is Observation. sg - Condition is Stable. - Problem is new. - Symptoms have improved. Addendum: 09/14/2020 07:16 Co-signature as Attending Physician, Ector Douglas MD. r n Signatures: Dispatcher [employer] Chad Perez RN RN sg Williams, Irene, RN RN iw Nieto, Roman, MD MD rn Roszak, Josh, PA PA jr8 Steffany Willis RN RN tl1 Page, Ruiz, PA PA cp [place], Ethan, RN RN jb4 Corrections: (The following items were deleted from the chart) 09/12 17:32 16:58 Chest Abdomen Pelvis W Con+CT.RAD.BRZ ordered. EDMS EDMS 18:17 18:15 Normal except: CL 108; GLUC 139; BUN 48; CRE 1.63; GFR 43. cp cp 19:32 19:26 Hospitalization Ordered by Fish Carey MD for Inpatient Admission. Preliminary jr8 diagnosis is Altered mental status, unspecified; Dehydration; Urinary tract infection, site not specified. Bed requested for Telemetry/MedSurg (Inpatient). Status is Inpatient Admission. Condition is Stable. Problem is new. Symptoms have improved. cp 20:01 19:32 09/12/2020 19:26 Hospitalization Ordered by David Garza for Inpatient tl1 Admission. Preliminary diagnosis is Altered mental status, unspecified; Dehydration; Urinary tract infection, site not specified. Bed requested for Telemetry/MedSurg (Inpatient). Status is Inpatient Admission. Condition is Stable. Problem is new. Symptoms have improved. jr8 21:10 20:01 09/12/2020 19:26 Hospitalization Ordered by David Garza for Inpatient jr8 Admission. Preliminary diagnosis is Altered mental status, unspecified; Dehydration; Urinary tract infection, site not specified. Bed requested for Telemetry/MedSurg (Inpatient). Status is Inpatient Admission. Condition is Stable. Problem is new. Symptoms have improved. tl1 21:25 21:10 09/12/2020 19:26 Hospitalization Ordered by David Garza for Observation. sg Preliminary diagnosis is Altered mental status, unspecified; Dehydration; Urinary tract infection, site not specified. Bed requested for Telemetry/MedSurg (observation). Status is Observation. Condition is Stable. Problem is new. Symptoms have improved. jr8 21:28 21:25 09/12/2020 19:26 Hospitalization Ordered by David Garza for Observation. sg Preliminary diagnosis is Altered mental status, unspecified; Dehydration; Urinary tract infection, site not specified. Bed requested for Telemetry/MedSurg (observation). Status is Observation. Condition is Stable. Problem is new. Symptoms have improved. sg
--- NOTE | 2020-09-12 19:27 | ER ---
Nurse's Notes [facility] Name: Raphael Hoyos Age: 64 yrs Sex: Male : 1955 Arrival Date: 09/12/2020 Time: 16:20 Bed 30 Private MD: Diagnosis: Altered mental status, unspecified;Dehydration;Urinary tract infection, site not specified Presentation: 09/12 16:20 Chief complaint: EMS states: AMS since last night, worse today, was complaining of iw chest pain today, from [facility], pt appear to be in pian all over, smells of urine. Risk Assessment: Do you want to hurt yourself or someone else? Patient reports no desire to harm self or others. Onset of symptoms was September 11, 2020. 16:20 Method Of Arrival: EMS: [facility] iw 16:20 Acuity: DANIELA 3 iw 16:20 Coronavirus screen: At this time, the client does not indicate any symptoms associated iw with coronavirus-19. Ebola Screen: Patient negative for fever greater than or equal to 101.5 degrees Fahrenheit, and additional compatible Ebola Virus Disease symptoms Patient denies exposure to infectious person. Patient denies travel to an Ebola-affected area in the 21 days before illness onset. No symptoms or risks identified at this time. Initial Sepsis Screen: Does the patient meet any 2 criteria? No. Patient's initial sepsis screen is negative. Does the patient have a suspected source of infection? No. Patient's initial sepsis screen is negative. Historical: - Allergies: 17:09 NKA; iw - PMHx: 17:09 CVA; Diabetes - IDDM; GERD; Hypertension; TIA; iw Screenin:00 Abuse screen: Denies threats or abuse. Nutritional screening: No deficits noted. jb4 Tuberculosis screening: No symptoms or risk factors identified. Fall Risk Secondary diagnosis (15 points) impaired mobility, CVA, IV access (20 points). Gait- Impaired (20 pts.). Total [place] Fall Scale indicates High Risk Score (45 or more points). Fall prevention measures have been instituted. Side Rails Up X 2 Placed Close to Nursing Station Frequent Obs/Assessments Occuring As available patient and family educated on Fall Prevention Program and Strategies. Assessment: 16:20 General: Appears in no apparent distress. Behavior is drowsy. Pain: Complains of pain iw in neck. Neuro: Level of Consciousness is awake, Cardiovascular: Patient's skin is warm and dry. 19:00 Reassessment: Patient appears in no apparent distress at this time. Patient and/or jb4 family updated on plan of care and expected duration. Pain level reassessed. Patient is alert, oriented x 3, equal unlabored respirations, skin warm/dry/pink. 20:00 Reassessment: Patient appears in no apparent distress at this time. Patient and/or jb4 family updated on plan of care and expected duration. Pain level reassessed. Patient is alert, oriented x 3, equal unlabored respirations, skin warm/dry/pink. parikh inserted. 20:30 Reassessment: attempted to call report, on hold for 10 minutes. jb4 20:40 Reassessment: attempted to call report, instructed to wait for call back. 4 Vital Signs: 17:54 BP 139 / 67; Pulse 87; Resp 18 S; Temp 98.9; Pulse Ox 97% on R/A; Weight 99.79 kg; iw Height 5 ft. 8 in. (172.72 cm); Pain 8/10; 19:00 BP 120 / 80; Pulse 73; Resp 16; Pulse Ox 98% on R/A; jb4 20:00 BP 123 / 80; Pulse 65; Resp 16; Pulse Ox 99% on R/A; jb4 17:54 Body Mass Index 33.45 (99.79 kg, 172.72 cm) ED Course: 16:20 Patient arrived in ED. iw 16:20 Patient has correct armband on for positive identification. iw 16:21 Triage completed. iw 16:28 Zahra Rodriguez, RN is Primary Nurse. iw 16:28 Ruiz Oneal PA is PHCP. cp 16:28 Ector Douglas MD is Attending Physician. cp 17:15 Inserted saline lock: 20 gauge in left wrist, using aseptic technique. Blood collected. dh4 17:16 Lactate Sent. dh4 17:16 Blood Culture Adult (2) Sent. dh4 17:20 XRAY Chest (1 view) In Process Unspecified. EDMS 17:36 CT Head Brain wo Cont In Process Unspecified. EDMS 17:36 Chest Abd Pelvis Wo Con In Process Unspecified. EDMS 17:55 Arm band placed on. iw 19:25 Fish Carey MD is Hospitalizing Provider. cp 19:32 David Garza is Hospitalizing Provider. jr8 20:00 Parikh cath inserted, using sterile technique, 16 Fr., by id, balloon inflated, to jb4 gravity drainage. 20:27 No provider procedures requiring assistance completed. Patient admitted, IV remains in jb4 place. Administered Medications: 09:48 Drug: Rocephin 1 grams Route: IV; Rate: calculated rate; Site: left forearm; jb4 19:50 Follow up: IV Status: Completed infusion; IV Intake: 10ml jb4 19:10 Drug: NS 0.9% 500 ml Route: IV; Rate: bolus; Site: left forearm; jb4 19:42 Follow up: Response: No adverse reaction; IV Status: Completed infusion; IV Intake: jb4 500ml 19:45 Drug: NS 0.9% 1000 ml Route: IV; Rate: 75 ml/hr; Site: left forearm; jb4 Intake: 19:42 IV: 500ml; Total: 500ml. jb4 19:50 IV: 10ml; Total: 510ml. jb4 Outcome: 19:26 Decision to Hospitalize by Provider. cp 20:27 Admitted to Med/surg accompanied by tech, via stretcher, with chart. jb4 20:27 Condition: stable 20:27 Discharge instructions given to patient, Instructed on the need for admit, Demonstrated understanding of instructions. 20:56 Admitted to Report called to RADHAMES Landa sg 21:28 Patient left the ED. sg Signatures: Dispatcher [employer] EDMS Chad Damon RN RN sg Williams, Irene RN Best King PA PA jr8 Ruiz Oneal PA PA cp Bryson, James, RN RN [facility] Mckay Flores [facility]
[2020-09-12 19:30] LABS: Urine Bacteria <20 /HPF (NONE SEEN)
[2020-09-12 19:31] LABS: Urine Culture Reflex Order NOT NEEDED
[2020-09-12] MEDS ORDERED: CEFTRIAXONE/SWI 1gm 1 GM/10 ML SYR ONE (19:59)
[2020-09-12 20:00] LABS: Absolute Lymphocytes (CBC) 0.6 K/uL (0.7-4.9); Basophils % 0.7 % (0-1.3); Hematocrit 25.8 % (39.6-49.0); Lymphocytes % 7.8 % (15.3-44.8); MPV 7.8 fL (7.6-11.3); RBC Red Blood Cell Count 2.99 M/uL (4.33-5.43)
[2020-09-12 20:01] LABS: Protime INR 1.06
[2020-09-12 20:12] LABS: Urine Blood 1+ (NEG); Urine Glucose NEGATIVE (NEG); Urine Protein 2+ (NEG); Urine Specific Gravity 1.015 (1.005-1.030)
[2020-09-12 20:39] LABS: Blood Morphology Comment NOT SEEN (NOT SEEN); Platelet Estimate ADEQ; White Blood Cell Scan OK (OK)
[2020-09-12] MEDS ORDERED: D50W 25 GM/50 ML SYRINGE IV PRN (21:41)
[2020-09-12] MEDS ORDERED: GLUCAGON 1 MG/VIAL IM PRN (21:41)
[2020-09-12] MEDS ORDERED: ONDANSETRON 4 MG/2 ML VIAL IV PRN (21:41)
[2020-09-12] MEDS: INSULIN -REGULAR HUMAN 50 UNIT/0.5 ML ML SQ SCH (21:41)
[2020-09-12] MEDS ORDERED: NA CHLORIDE 0.9% 1,000 ML IV SCH (21:41)
[2020-09-12 22:17] VITALS: BMI 37.9
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
--- NOTE | 2020-09-13 06:05 | EKG ---
Test Date: 2020-09-12 Test Time: 17:46:35 Structures Technician: ALEXIS MEASUREMENT RESULTS: Intervals: Rate: 65 ND: 180 QRSD: 98 QT: 428 QTc: 445 [place]: P: 49 ND: 180 QRS: 74 T: 83 INTERPRETIVE STATEMENTS: Electronic atrial pacemaker Compared to ECG 08/05/2020 09:23:32 Sinus bradycardia no longer present First degree AV block no longer present Early repolarization no longer present Electronically Signed On 09-13-20 06:03:03 [employer] by Manuel Johnson
[2020-09-13 06:07] LABS: Absolute Lymphocytes (CBC) 0.6 K/uL (0.7-4.9); Basophils % 0.5 % (0-1.3); Hematocrit 25.1 % (39.6-49.0); Lymphocytes % 10.4 % (15.3-44.8); MPV 7.8 fL (7.6-11.3); RBC Red Blood Cell Count 2.94 M/uL (4.33-5.43)
[2020-09-13 06:16] LABS: Potassium 4.1 mmol/L (3.5-5.1)
[2020-09-13] MEDS: INSULIN -REGULAR HUMAN 50 UNIT/0.5 ML ML SQ SCH ×3 (07:30→16:30)
[2020-09-13 07:51] VITALS: O2SAT 99
[2020-09-13] MEDS ORDERED: CEFTRIAXONE 1 GM/NS 50 ML 1 GM/50 ML BAG IV SCH (08:00)
[2020-09-13] MEDS ORDERED: CEFTRIAXONE/SWI 1gm 1 GM/10 ML SYR IV SCH (09:00)
--- NOTE | 2020-09-13 12:51 | P.DS ---
Admission Date: 09/12/20 Discharge Date: 09/13/20 Primary Care Provider: [facility] Physician Disposition: TRANSFER TO ALF Discharge Condition: FAIR Reason for Admission: Altered Mental Status, Dehydration Consultations: None Brief History of Present Illness: 64-year-old gentleman with a history of TIA, CVA, hypertension [facility] because she could not be aroused with a concern for altered mental status. Workup in the emergency department revealed mild GARY. Head CT was negative for any acute changes. CT abdomen and pelvis demonstrated mild bilateral hydronephrosis and hydroureter and distended bladder. Parikh catheter was inserted. UA did not suggest the presence of UTI. Patient was hospitalized for further management. Hospital Course: Patient was hydrated with IV fluid. His serum creatinine improved with hydration. Parikh catheter was maintained. Patient has urinary retention likely secondary to BPH. He is on oxybutynin for overactive bladder which is on hold for now. Patient prescribed flomax. Recommend to maintain Parikh catheter for 2 weeks followed by a voiding trial. Patient was sleeping when I saw him today. He stated he likes to sleep when I woke him up. It appears he is difficult to arouse when he is sleeping. He is oriented to person and place and was communicating meaninfully during my interaction with him. [facility] Would recommend EEG to assess for nonconvulsive seizures given his history of CVA if this episode recurs. Also recommend follow up with Urology - Dr. Ortiz regarding his overactive bladder and urinary retention. Vital Signs/Physical Exam: Temp Pulse Resp BP Pulse Ox 97.5 F 59 19 155/79 H 99 09/13/20 12:00 09/13/20 12:00 09/13/20 12:00 09/13/20 12:00 09/13/20 12:00 General: In no apparent distress, Other (Awake) HEENT: Mucous membr. moist/pink Neck: Supple, JVD not distended Respiratory: Clear to auscultation bilaterally, Normal air movement Cardiovascular: No edema, Regular rate/rhythm, Normal S1 S2 Gastrointestinal: Normal bowel sounds, Soft and benign, No tenderness Musculoskeletal: No swelling, No tenderness Integumentary: No rashes Neurological: Other (Nonfocal) Laboratory Data at Discharge: WBC 6.1 K/uL (4.3-10.9) D 09/13/20 05:50 Hgb 9.1 g/dL (13.6-17.9) L 09/13/20 05:50 Hct 25.1 % (39.6-49.0) L 09/13/20 05:50 Plt Count 194 K/uL (152-406) 09/13/20 05:50 PT 12.5 SECONDS (9.5-12.5) 09/12/20 19:47 INR 1.06 09/12/20 19:47 Sodium 144 mmol/L (136-145) 09/13/20 05:50 Potassium 4.1 mmol/L (3.5-5.1) 09/13/20 05:50 BUN 38 mg/dL (7-18) H 09/13/20 05:50 Creatinine 1.34 mg/dL (0.55-1.3) H 09/13/20 05:50 Glucose 107 mg/dL (74-106) H 09/13/20 05:50 Magnesium 2.6 mg/dL (1.8-2.4) H 09/12/20 17:20 Total Bilirubin 1.2 mg/dL (0.2-1.0) H 09/12/20 17:20 AST 15 U/L (15-37) 09/12/20 17:20 ALT 24 U/L (12-78) 09/12/20 17:20 Alkaline Phosphatase 115 U/L (45-117) 09/12/20 17:20 Home Medications: Aspirin [Low Dose Aspirin EC] 81 mg PO DAILY 09/13/20 Atorvastatin Calcium [Lipitor*] 40 mg PO BEDTIME 09/13/20 Divalproex ER [Depakote *ER] 250 mg PO BID 09/13/20 Docusate [Colace Cap*] 100 mg PO DAILY 09/13/20 Hydralazine [Apresoline*] 25 mg PO PRN PRN 09/13/20 Linagliptin [Tradjenta] 5 mg PO DAILY 09/13/20 Lisinopril [Zestril] 20 mg PO DAILY 09/13/20 Melatonin 5 mg PO BEDTIME 09/13/20 Metoprolol Tartrate [Lopressor*] 50 mg PO BID 09/13/20 Nifedipine Xl [Procardia XL*] 60 mg PO BID 09/13/20 Omeprazole [Prilosec] 40 mg PO DAILY 09/13/20 Tamsulosin [Flomax] 0.4 mg PO BEDTIME #30 cap 09/13/20 traMADol HCL [Ultram*] 50 mg PO BID 09/13/20 New Medications: Tamsulosin [Flomax] 0.4 mg PO BEDTIME #30 cap Patient Discharge Instructions: Maintain parikh catheter for 2 week. Voiding trial after 2 weeks. Follow up with urology-Dr. Ortiz within 2 weeks. Diet: ADA Activity: Fall precautions Followup: NONE,NONE [Primary Care Provider] - Domenico Ortiz [COURTESY - CAN ADMIT] - (Within 2 weeks.)
[2020-09-13] MEDS ORDERED: ENOXAPARIN 40 MG/0.4 ML SQ SCH (17:00)
[2020-09-13 17:22] VITALS: BP 128/75; TEMP 98.1
== END 2020-09-13 19:29 ==
LOC: ER 15:58 → ERHOLD 19:33 → UNDOADMOB 19:37 → INTOOBSV 19:37 → ERHOLD 19:37 → 2ND 21:29
PROVIDERS: ADMIT Internal Medicine; ATTEND Internal Medicine
DX: N17.9 Acute kidney failure, unspecified (principal); E86.0 Dehydration; R41.82 Altered mental status, unspecified; Z86.73 Personal history of transient ischemic attack (TIA), and cerebral infarction without residual deficits; N13.30 Unspecified hydronephrosis; Z20.828 Contact with and (suspected) exposure to other viral communicable diseases; N40.1 Benign prostatic hyperplasia with lower urinary tract symptoms; R33.8 Other retention of urine; E11.9 Type 2 diabetes mellitus without complications; Z79.4 Long term (current) use of insulin; K21.9 Gastro-esophageal reflux disease without esophagitis; I10 Essential (primary) hypertension; E78.5 Hyperlipidemia, unspecified
CPT/HCPCS: 96365; 93005; 87040 ×2; 85025 ×2; 80048 ×2; 36415; 83735; 85610; 82565; 82947 ×3; 80076; 83605; 84484; 84145; 83880; 70450; 71250; 74176; 71045; 51702; 99285; 96366; U0003; J1650; J0696 ×2; J7030 ×3; 81003; 81015

== ENCOUNTER 2020-09-20 02:36 | Emergency (ER) | payer OTHER ==
--- OUTSIDE RECORDS SUMMARY | 2020-09-20 02:39 | XMS REPORT | Clinical Summary ---
:1955 Author Organization [facility] Address [address] [place] [address] Care Team Providers Name Role Phone Unavailable [...] Bradycardia MD Albert Tyson Narendra, MD after 09/20/2019 Social History Tobacco Use Types Packs/Day Years [...] VACCINE (#1) 2020 Implants Implanted Type Area Non Cdl Driver Device Shelf Model / Identifier Expiration Serial / Date Lot Capsurefix Novus Mri Surescan 5076-58 Pacemaker Left: [employer] 06/11/2022 [id number] / Implanted: Qty: 1 on 08/07/2020 by Bienvenido Gracia, Adele Brady MD at [facility] Lead Heart [id number] / Description:RV Lead Capsurefix Novus Mri Heart [employer] 2 [id number] / Implanted: Qty: 1 on 08/07/2020 by Adele Jane MD at [facility] [id number] / Description:RA Lead [place] Xt Dr Louise Conklin Left: Chest [employer] [id number] / Implanted: Qty: 1 on 08/07/2020 by Adele Jane MD at [facility] [id number] / Description:Generator Procedures Procedure Name Priority Date/Time [...] 380 ms QTC Calculation(Bazett) 449 ms P Geff 64 degrees R Geff 55 degrees T Geff 61 degrees Sinus rhythm with 1st degree [...] i n the results section . after 09/20/2019 Results CBC with platelet count + automated diff (08/10/2020 3:36 AM CDT)Only the most recent of6 resultswithin the time period is included. Pathologist Sig nature WBC 5.9 3.5 - 10.5 [facility] K/L [facility] RBC 3.26 (L) 4.63 - 6.08 [facility] M/L [facility] Hemoglobin 10.1 (L) 13.7 - 17.5 [facility] GM/DL [facility] Hematocrit 30.1 (L) 40.1 - 51.0 % [facility] MCV 92.3 (H) 79.0 - 92.[address] [facility] MCH 31.0 25.7 - 32.[address] [facility] MCHC 33.6 32.3 - 36.5 [facility] GM/DL [facility] RDW 14.7 (H) 11.6 - 14.4 % [facility] Platelets 148 (L) 150 - 450 K/CU [facility] MPV 10.9 9.4 - 12.[address] [facility] nRBC 0 0 - 0 /[address] [facility] % Neutros 56 % [facility] % Lymphs 22 % [facility] % Monos 17 % [facility] % Eos 5 % [facility] % Baso 0 % [facility] # Neutros 3.29 1.78 - 5.38 [facility] # Lymphs 1.27 (L) 1.32 - 3.57 [facility] # Monos 1.00 (H) 0.30 - 0.82 [facility] # Eos 0.28 0.04 - 0.54 [facility] # Baso 0.01 0.01 - 0.08 [facility] Immature 0 0 - 1 % [facility] Specimen Blood Performing Organization Address City/State/Zipcode Phone Number [facility] [address] [place] [address] CENTER Magnesium (08/10/2020 3:36 AM CDT)Only the most recent of3 resultswithin the time period is included. Pathologist Sig nature Magnesium 1.7 1.6 - 2.6 mg/dL [facility] Specimen Blood Narrative Performed At [employer] Dean ID - EDASI [facility] Performing Organization Address City/State/Zipcode Phone Number [facility] [address] [place] [address] CENTER Hemoglobin A1c (08/10/2020 3:36 AM CDT)Only the most recent of2 resultswithin the time period is included. Pathologist Sig nature Hemoglobin A1C 6.2 (H) 4.3 - 6.1 % [facility] Specimen Blood Narrative Performed At [employer] ID - ADMIN [facility] Performing Organization Address City/State/Zipcode Phone Number [facility] [address] [place], [place] [address] Basic metabolic panel (08/10/2020 3:36 AM CDT)Only the most recent of6 results within the time period is included. Sodium 142 136 - 145 meq/L [facility] Potassium 4.0 3.5 - 5.1 meq/L [facility] Chloride 107 98 - 107 meq/L [facility] CO2 27 22 - 29 meq/L [facility] BUN 23 (H) 7 - 21 mg/dL [facility] Creatinine 1.35 (H) 0.57 - 1.25 [facility] mg/dL [facility] Glucose 150 (H) 70 - 105 mg/dL [facility] Calcium 8.1 (L) 8.4 - 10.2 [facility] mg/dL [facility] EGFR 53Comment: ESTIMATED mL/min/1.[address] [facility] GFR IS NOT m [facility] ACCURATE [place] CREATININE CLEARANCE IN PREDICTING GLOMERULAR FILTRATION RATE. ESTIMATED GFR IS NOT APPLICABLE FOR DIALYSIS PATIENTS. Specimen Blood Narrative Performed At [employer] Dean ID - JAVIERASI [facility] Performing Organization Address City/State/Zipcode Phone Number [facility] [address] [place] [address] CENTER XR chest 1 view portable / bedside (08/08/2020 7:16 AM CDT)Only the most recent of4 resultswithin the time period is included. Specimen Narrative Performed At FINAL REPORT [facility] CLINICAL HISTORY: post-ppm TECHNIQUE: 1 view of the chest. COMPARISON: 08/07/2020 IMPRESSION: A left chest wall pacemaker is again see n without pneumothorax. There are no new infiltrates or significant ef fusions. Cardiomegaly is again noted. Signed: Michelle Tariq MD Report Verified Date/Time: 08/08/2020 08:26:51 Reading Location: [facility] Reading Room Procedure Note Interface, External Ris In - 08/08/2020 8:29 AM CDT FINAL REPORT CLINICAL HISTORY: post-ppm TECHNIQUE: 1 view of the chest. COMPARISON: 08/07/2020 IMPRESSION: A left chest wall pacemaker is again see n without pneumothorax. There are no new infiltrates or significant ef fusions. Cardiomegaly is again noted. Signed: Michelle Tariq MD Report Verified Date/Time: 08/08/2020 0 8:26:51 Reading Location: [facility] Reading Room Performing Organization Address City/[facility] Phone Number GE RIS POC-Glucose meter (08/07/2020 4:02 PM CDT)Only the most recent of4 results within the time period is included. POC-Glucose Meter 132 (H) 70 - 110 mg/dL [facility] Comment: [facility] : TESTED AT [address], [address] CENTER : [employer] Dean/Mercury Washer ID = [id number] for SALOMON FLORES Specimen Blood Performing Organization Address [facility] Cent[facility]ode Phone Number [place] [phone] CENTER ECG 12 lead (08/07/2020 6:47 AM CDT)Only the most recent of3 resultswithin the time period is included. Specimen Narrative Performed At This result has an attachment that is no t available. Ventricular Rate 84 BPM GE MUSE Atrial Rate 84 BPM P-R Interval 220 ms QRS Duration 98 ms Q-T Interval 380 ms QTC Calculation(Bazett) 449 ms P Geff 64 degrees R Geff 55 degrees T Geff 61 degrees Sinus rhythm with 1st degree A-V block Nonspecific ST and T wave abnormality Abnormal ECG No previous ECGs available Confirmed by MD Silvia, Justino ([id number]) on 07/26 1:22:08 PM Procedure Note Interface, External Ris In - 08/07/2020 1:22 PM CDT Ventricular Rate 84 BPM Atrial Rate 84 BPM P-R Interval 220 ms QRS Duration 98 ms Q-T Interval 380 ms QTC Calculation(Bazett) 449 ms P Geff 64 degrees R Geff 55 degrees T Geff 61 degrees Sinus rhythm with 1st degree A-V block Nonspecific ST and T wave abnormality Abnormal ECG No previous ECGs available Confirmed by MD Vega Roberto ([id number]) on 08/07/2020 1:22:08 PM Performing Organization Address City/State/Zipcode Phone Number [employer] [facility] Prothrombin time/INR (08/07/2020 3:57 AM CDT) Pathologist Sig nature Protime 15.9 (H) 11.9 - 14.[address] [facility] INR 1.[address] [facility] Specimen Blood Narrative Performed At Effective 03/23/2019: PT Reference Range [facility] Change New: 11.9-14.2 Previous: 11.7-14.7 RECOMMENDED COUMADIN/WARFARIN INR THERAPY RANGES STANDARD DOSE: 2.0-3.0 Includes: PROPHYLAXIS for venous thrombosis, systemic embolization; TREATMENT for venous thrombosis and/or pulmonary embolus. HIGH RISK: Target INR is 2.5-3.5 for patients wiht mechanical heart valves. Performing Organization Address City/[facility] Phone Number [facility] [address] [place] [address] brain without IV contrast (08/06/2020 6:26 PM CDT) Specimen Narrative Performed At FINAL REPORT [employer] CT, BRAIN, WITHOUT IV CONTRAST INDICATION: Altered [...] AM CDT) Pathologist Sig nature Ejection Fraction [facility] ECHO [facility]ART[facility] Specimen Narrative Performed At Transthoracic Echocardiography Report (T TE) [facility]CHO [facility]ART[facility] Demographics Patient Name SHAREEEIS, Date of Study 08/06/2020 RAPHAEL Gender Male Visit Number [id number] Race Unknown Room Number C823 Number Date of 1955 Referring Physician Kalina Rodrigez MD Age 64 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, [facility]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 Negative, See [facility] external report CENTER for linked test SARS-COV-[address] [facility] PERFORMING LAB [facility] Specimen Other - Nasopharyngeal wall structure (b ayden structure) Narrative Performed At Negative result for this test determines that [facility] SARS-CoV-2 RNA was not present in the [...] the Act. Fact Sheet for Healthcare Providers: https://www.[employer]/sites/default/files/pro duct/documents/Fact_Sheet_HC_Providers_Lyra_SA RS-CoV-2.pdf Fact Sheet for Healthcare Patients: https://www.[employer]/sites/default/files/pro duct/documents/Fact_Sheet_Patients_Lyra_SARS-C oV-2.pdf Performing Laboratory: [address] [place] [address] Performing Organization Address City/State/Zipcode Phone Number [address] [address] CENTER Troponin I (08/05/2020 7:10 PM CDT)Only the most recent of2 resultswithin the time period is included. Pathologist Sig nature Troponin I 0.02 0.00 - 0.03 ng/mL [facility] Specimen Blood Narrative Performed At Troponin I [...] acidosis, acute neurological disease, and persistent tachyarrhythmia. [employer] Dean ID - RM Performing Organization Address City/[facility]/Zipcode Phone Number [address] [address] [place] Blood gas, arterial (08/05/2020 7:10 PM CDT)Only the most recent of2 results within the time period is included. Pathologist Sig nature pH, Arterial 7.54 (H) 7.35 - 7.45 [facility] pCO2, Arterial 27 (L) 35 - [address] [facility] pO2, Arterial 136 (H) 80 - [address] [facility] O2 Sat, Arterial 99.1 (H) 96.0 - 97.0 % [facility] HCO3, Arterial 23 21 - 29 mmol/L [facility] Base Excess, Arterial 0.8 -2.0 - 3.0 [facility] mmol/L [facility] Patient Temperature 36.0 [facility] FIO2 50.0 [facility] Specimen Blood, Arterial Performing Organization Address [facility] Phone Number [address] [address] [place] B-type Natriuretic Factor (BNP) (08/05/2020 1:13 PM CDT) Pathologist Sig nature BNP 29 0 - 100 pg/mL [facility] Specimen Blood Narrative Performed At [employer] Dean ID - ERIC [facility] Performing Organization Address [facility]erc[facility] Phone Number [address] [address] [place] Valproic acid level, total (08/05/2020 1:13 PM CDT) Pathologist Sig nature Valproic Acid, Total 30 (L) 50 - 100 ug/mL [facility] Specimen Blood Narrative Performed At Therapeutic range for some clinical [facility] conditions may be >100 ug/mL [employer] Dean ID - RM Performing Organization Address [facility] Phone Number [address] [address] CENTER Comprehensive metabolic panel (08/05/2020 1:13 PM CDT) Protein, Total 7.6Comment: 6.0 - 8.[address] [facility] Specimen slightly gm/dL [facility] Albumin 3.8Comment: 3.5 - 5.0 [facility] Specimen slightly g/dL [facility] Alkaline 104 40 - 150 U/L [facility] Phosphatase [facility] Total Bilirubin 1.1Comment: 0.2 - 1.2 [facility] Specimen slightly mg/dL [facility] Sodium 139 136 - 145 [facility] meq/L [facility] Potassium 6.3 (HH)Comment: 3.5 - 5.1 [facility] Specimen slightly meq/L [facility] Chloride 109 (H) 98 - 107 [facility] meq/L [facility] CO2 24 22 - 29 meq/L [facility] BUN 43 (H) 7 - 21 mg/dL [facility] Creatinine 1.72 (H)Comment: 0.57 - 1.25 [facility] Specimen slightly mg/dL [facility] Glucose 187 (H) 70 - 105 [facility] mg/dL [facility] Calcium 8.6 8.4 - 10.2 [facility] mg/dL [facility] AST 40 (H)Comment: 5 - 34 U/L [facility] Specimen [facility] ALT 83 (H)Comment: 6 - 55 U/L [facility] Specimen [facility] EGFR 40Comment: mL/min/1.73 [facility] ESTIMATED GFR IS sq m [facility] NOT ACCURATE [facility]ICAL CENTER CREATININE CLEARANCE IN PREDICTING GLOMERULAR FILTRATION RATE. ESTIMATED GFR IS NOT APPLICABLE FOR DIALYSIS PATIENTS. Specimen Blood Narrative Performed At [employer] ID - DAYAG [facility] Performing Organization Address City/State/Zipcode Phone Number [facility] [address] [place] [address] CENTER ARRYTHMIA IMPLANT REPORT - SCAN (08/05/2020)Only the most recent of2 results within the time period is included. Narrative Performed At This result has an attachment that is no t available. Ordered by an unspecified provider. after 09/20/2019 Insurance Payer Benefit Plan Subscriber ID Effective Dates Phone Address Type / Group MEDICAID - [facility] [id number] 2018-Ladarius darling MEDICAID MGD STAR PLAN nt [facility] [place] [address] Advance Directives For more information, please contact: [phone] Code Status Date Activated Date Inactivated Comments Full Code 08/05/2020 12:38 PM 08/10/2020 8:02 PM This code status was determined by: Patient
--- OUTSIDE RECORDS SUMMARY | 2020-09-20 02:41 | XMS REPORT | Continuity of Care Document ---
:1955 Author Organization [facility] t Address [address] [place] [address] Care Team Providers Name Role Phone Jesse Rodrigez MD Attending Clinician Albert ZAZUETA Attending Clinician Caitlyn Ray MD Attending Clinician [phone] Kash Ovalles MD Attending Clinician JESSE RODRIGEZ Attending Clinician Unavailable JESSE RODRIGEZ Admitting Clinician Unavailable Payers Payer Name Policy Type Policy Effective Date Expiration Date Sour ce Number MEDICAID - [id number] 2018 [facility] MEDICAID MGD 00:00:00 - Medical [facility] STAR [id number]-PresentMedi caid Contracted Problems Condition Condition Condition Status [...] Date Quantity Comments Source Sex Assigned At [facility] Medications Ordered Filled Start Stop Current Ordering [...] mg Medical capsule 00 :00 total) by [place] mouth 4 (four) times daily before meals and nightly for 7 days. mINOCYCLine 2019-10 2020- No 100mg Take [address] (MINOCIN,DY 0-16 10-19 capsule Luke s - NACIN) 100 00:00: 23:59 (100 mg Med ical MG capsule 00 :00 total) by [facility] mouth every 12 (twelve) hours for 3 days. atorvastati 2019-10- No 1{tbl} QD Take [address] [facility] (LIPITOR) 0-07 10-16 tablet by Ericka kes - 40 MG 00:00: 00:00 mouth Medical tablet 00 :00 nightly. [place] divalproex 2020- No 1{tbl} QD Take [address] (DEPAKOTE) 9-28 10-16 tablet by Reji es - 500 MG EC 00:00: 00:00 mouth Medica l tablet 00 :00 nightly. [place] NIFEdipine 2020- No 1{tbl} QD Take [address] (ADALAT CC) 9-24 10-16 tablet by Ericka kes - 60 MG 24 hr 00:00: 00:00 mouth Medi jadiel tablet 00 :00 daily. [place] traZODone 2020- No 1{tbl} QD Take [address] [facility] (DESYREL) 9-24 10-16 tablet by Luke s - 100 MG 00:00: 00:00 mouth Medical tablet 00 :00 nightly. [place] traMADoL 2020- No 1{tbl} QD Take [address] [facility] (ULTRAM) 50 9-23 10-16 tablet by Ericka kes - mg tablet 00:00: 00:00 mouth Medica l 00 :00 nightly. [place] lisinopriL 2020- No 1{tbl} Q.5D Take [address] (PRINIVIL,Z 9-21 10-16 tablet by Ericka kes - ESTRIL) 20 00:00: 00:00 mouth 2 Med ical MG tablet 00 :00 (two) Center times daily. oxybutynin 2019- No 1{tbl} QD Take [address] (DITROPAN) 8-30 10-16 tablet by Reji es - 5 MG tablet 00:00: 00:00 mouth Medi jadiel 00 :00 daily. [place] Tradjenta 5 2019- No 1{tbl} QD Take [address] mg Tab 8-28 10-16 tablet by [facility] 00:[facility]: [facility]:00 mouth Medical 00 :00 daily. [place] meloxicam 2019- No 1{tbl} QD Take [address] [facility] [address] (MOBIC) 15 8-25 10-16 tablet by Reji es - MG tablet 00:00: 00:00 mouth Medica l 00 :00 daily. [place] metoprolol 2019- No 1{tbl} QD Take [address] tartrate 7-23 10-16 tablet by [facility] - (LOPRESSOR) 00:00: 00:00 mouth Medi jadiel 100 MG 00 :00 daily. Center tablet Vital Signs Vital Name Observation Time Observation Value Comments Source Systolic blood 2020-08-10 15:39:00 134 mm[Hg] [facility] Diastolic blood 2020-08-10 15:39:00 58 mm[Hg] [facility] Heart rate 2020-08-10 15:39:00 74 /min [facility] Body temperature 2020-08-10 15:39:00 37.33 Tanika [facility] Respiratory rate 2020-08-10 15:39:00 17 /min [facility] Oxygen saturation in 2020-08-10 15:39:00 95 /min [facility] Arterial blood by Medical Ce nter Pulse oximetry Body weight 2020-08-07 06:00:00 117 kg [facility] BMI 2020-08-07 06:00:00 40.40 kg/m2 [facility] Body height 2020-08-05 12:30:00 170.2 cm [facility] Procedures Procedure Date / Time Performed Performing Clinician Sourc e BASIC METABOLIC PANEL (7) 2020-08-10 03:36:00 Gabriele Whatley [facility] HEMOGLOBIN A1C 2020-08-10 03:36:00 Albert Hilton [facility] MAGNESIUM 2020-08-10 03:36:00 Albert [facility] CBC W/PLT COUNT & AUTO 2020-08-10 03:36:00 [facility] HEMOGLOBIN A1C 2020-08-09 15:09:00 Tyler Avis [facility] BASIC METABOLIC PANEL (7) 2020-08-09 06:17:00 [facility] CBC W/PLT COUNT & AUTO 2020-08-09 06:17:00 [facility] XR CHEST 1 VIEW 2020-08-08 07:16:00 [facility] es - PORTABLE/BEDSIDE [facility] BASIC METABOLIC PANEL (7) 2020-08-08 05:27:00 [facility] CBC W/PLT COUNT & AUTO 2020-08-08 05:27:00 [facility] XR CHEST 1 VIEW 2020-08-07 19:39:00 [facility] es - PORTABLE/BEDSIDE [facility] POCT-GLUCOSE METER 2020-08-07 16:02:[address] [facility] PACEMAKER GEN & LEADS - 2020-08-07 12:42:00 Desirae Ray [facility] - INSERTION W/ GENERAL Caitlyn Medical Herib[address] ter ANESTHESIA (SING/DUAL/MULT) ECG 12-LEAD 2020-08-07 06:47:19 Unknown, Hl7 Doctor [facility] BASIC METABOLIC PANEL (7) 2020-08-07 03:57:00 [facility] PROTHROMBIN TIME/INR 2020-08-07 03:57:00 Kannan Mirza [facility] CBC W/PLT COUNT & AUTO 2020-08-07 03:57:00 [facility]as [facility]alez [facility] BRAIN WITHOUT IV 2020-08-06 18:26:00 Shelbie Oneil [facility] POCT-GLUCOSE METER 2020-08-06 17:52:[address] [facility] POCT-GLUCOSE METER 2020-08-06 12:09:00 [facility] ECG 12-LEAD 2020-08-06 12:00:34 Unknown, Hl7 Doctor [facility] ECHO W CONTRAST & DOPPLER 2020-08-06 08:42:00 Sabas Moralez [facility] BASIC METABOLIC PANEL (7) 2020-08-06 04:09:00 Gabriele Whatley [facility] MAGNESIUM 2020-08-06 04:09:00 Mary Ellen Montana [facility] CBC W/PLT COUNT & AUTO 2020-08-06 04:09:00 Sabas Moralez [facility] SARS-COV2/RT-PCR ([facility] & 2020-08-05 22:59:00 Hue Short rp [facility] - REF LABS) [facility] TROPONIN I 2020-08-05 19:10:00 Sabas Moralez [facility] BASIC METABOLIC PANEL (7) 2020-08-05 19:10:00 Wayne Marte [facility] BLOOD GAS, ARTERIAL 2020-08-05 19:10:00 Wayne Marte [facility] POCT-GLUCOSE METER 2020-08-05 18:33:00 Asif [facility] XR CHEST 1 VIEW 2020-08-05 14:37:00 Sabas Moralez [facility] PORTABLE/BEDSIDE Medical Center BLOOD GAS, ARTERIAL 2020-08-05 13:14:00 Sabas Moralez [facility] TROPONIN I 2020-08-05 13:13:00 Sabas Moralez [facility] COMPREHENSIVE METABOLIC 2020-08-05 13:13:00 Sabas Moralez [facility] B-TYPE NATRIURETIC FACTOR 2020-08-05 13:13:00 Sabas Moralez [facility] (BNP) [facility] VALPROIC ACID LEVEL, 2020-08-05 13:13:00 Sabas Moralez [facility] - TOTAL [facility] MAGNESIUM 2020-08-05 13:13:00 Wayne Marte [facility] CBC W/PLT COUNT & AUTO 2020-08-05 13:13:00 Sabas Moralez [facility] DIFFERENTIAL [facility] Center XR CHEST 1 VIEW 2020-08-05 12:43:00 Sabas Moralez [facility] - PORTABLE/BEDSIDE [facility] ECG 12-LEAD 2020-08-05 12:15:55 Unknown, Hl7 Doctor [facility] ARRYTHMIA IMPLANT REPORT 2020-08-05 00:00:00 Provider, Default [facility] - - SCAN Scanning [facility] Plan of Care Planned Activity Planned Date Details Comments Source Future Scheduled 2020-06-[address] [facility] - Test 00:00:00 (#1) [code = [facility] INFLUENZA VACCINE (#1)] Future Scheduled 2019-10-15 [facility] (procedure) [code = [facility] 81713200] Future Scheduled [address] [facility] [address] Reji es - Test 00:00:00 malignant neoplasm Medical C enter of colon (procedure) [code = 356543506] Results Test Description Test Time Test Comments Results Result Sourc e Comments ARRYTHMIA IMPLANT 2020-08-21 Ordered by an [facility] REPORT - SCAN 14:21:09 unspecified - Medical provider. [place] Hemoglobin A1c 2020-08-10 09:54:00 Test Item Value Reference Range Interpretation Comme nts Hemoglobin A1C (test code = 4548-4) 6.2 % 4.3-6.1 H CHANDRIKA (test code = CHANDRIKA) Curer Acid Drum ID - ADMIN Lab Interpretation (test code = 35740-3) Abnormal [facility] [id number] 09:54:00 Test Item Value Reference Range Interpretation Comments HEMOGLOBIN A1C (BEAKER) (test code = 6.2 % 4.3-6.1 H 368) C[employer] Acid Drum ID - ADMINHEMOGLOBIN [id number] 09:45:00 Test Item Value Reference Range Interpretation Comments HEMOGLOBIN A1C (BEAKER) (test code = 6.1 % 4.3-6.1 368) C[employer] Acid Drum ID - ADMINBasic metabolic [id number] 04:58:00 Test Item Value Reference Range Interpretation Comments Sodium (test code = 142 meq/L 845-803 2617-2) Potassium (test code = 4.0 meq/L 3.5-5.1 2823-3) Chloride (test code = 107 meq/L 98-107 2075-0) CO2 (test code = 27 meq/L 22-29 2028-9) BUN (test code = 23 mg/dL 7-21 H 3094-0) Creatinine (test code 1.35 mg/dL 0.57-1.25 H = 2160-0) Glucose (test code = 150 mg/dL 70-105 H 2345-7) Calcium (test code = 8.1 mg/dL 8.4-10.2 L 92488-2) EGFR (test code = 53 mL/min/1.73 [place] [address]-7) NOT ACCURATE CREATININE CLEARANCE IN PREDICTING GLOMERULAR FILTRATION RATE . ESTIMATED GFR I S NOT APPLICABLE FOR DIALYSIS PATIENTS. CHANDRIKA (test code = CHANDRIKA) Curer Acid Drum ID - EDASI Lab Interpretation Abnormal (test code = 26597-8) [facility] Center[facility]esium2020-10-16 04:58:00 Test Item Value Reference Range Interpretation Comments Magnesium (test code = 1.7 mg/dL 1.6-2.6 80289-9) CHANDRIKA (test code = CHANDRIKA) Curer Acid Drum ID - EDASI Lab Interpretation (test Normal code = 52856-7) [facility]OLIC [id number] 04:58:00 Test Item Value Reference Range Interpretation [...] S NOT APPLICABLE FOR DIALYSIS PATIEN TS. Curer Acid Drum ID - [id number] 04:58:00 Test Item Value Reference Range Interpretation Comments MAGNESIUM (BEAKER) (test code = 1.7 mg/dL 1.6-2.6 627) Curer Acid Drum ID - EDASICBC with platelet count + automated [id number] 04:36:00 Test Item Value Reference Range Interpretation [...] K/CU MM L MPV (test code = 08044-2) 10.9 fL 9.4-12.4 nRBC (test code = [...] 2801) Lab Interpretation (test code = Abnormal 58564-8) [facility] W/PLT COUNT & AUTO [id number] 04:36:00 Test Item Value Reference Range Interpretation [...] (BEAKER) (test code = 2801) BASIC METABOLIC [id number] 07:31:00 Test Item Value Reference Range Interpretation [...] S NOT APPLICABLE FOR DIALYSIS PATIEN TS. Curer Acid Drum ID - DEMOND MCBC W/PLT COUNT & AUTO [id number] 07:21:00 Test Item Value Reference Range Interpretation [...] = 2801) RAD, CHEST, 1 VIEW, NON [id number] 08:26:00Reason for exam:->post-ppmShould this be performed at the bedside?->YesFINAL REPORT CLINICAL HISTORY: post-ppm TECHNIQUE: 1 view of the chest. COMPARISON: 08/07/2020 IMPRESSION: A left chest wall pacemaker is again seen without pneumothorax. There are no new infiltrates or significant effusions. Cardiomegaly is again noted. Signed: Michelle Tariq Verified Date/Time: 08/08/2020 08:26:51 Reading Location: [facility] Radiology Reading Room XR chest 1 view portable / [id number] 08:26:00Interface, External Ris In - 08/08/2020 8:29 AM CDTFINAL REPORT CLINICAL HISTORY: post-ppm TECHNIQUE: 1 view of the chest. COMPARISON: 08/07/2020 IMPRESSION: A left chest wall pacemaker is again seen without pneumothorax. There are no new infiltrates or significant effusions. Cardiomegaly is again noted. Signed: Michelle Tariq Verified Date/Time: 08/08/2020 08:26:51 Reading Location: [facility] Radiology Reading [facility] [id number] 06:17:00 Test Item Value Reference Range Interpretation [...] S NOT APPLICABLE FOR DIALYSIS PATIEN TS. Curer Acid Drum ID - DEMOND MCBC W/PLT COUNT & AUTO [id number] 05:59:00 Test Item Value Reference Range Interpretation [...] = 2801) RAD, CHEST, 1 VIEW, NON [id number] 20:04:00Reason for exam:->post ppmShould this be performed at the bedside?->YesFINAL REPORT AP view of the chest dated 08/07/2020 CLINICAL INFORMATION: post ppm Comment: Heart is normal in size. Thoracic aorta is ectatic. AICD is present. Pulmonary vasculature is unremarkable. Lungs are clear. No pulmonary infiltrate or pleural effusion is present. Impression: Ectatic thoracic aorta. Signed: Jame Duckwortheport Verified Date/Time: 08/07/2020 20:04:22Reading Location: [address] Consult Reading Room POC-Glucose [id number] 16:15:00 Test Item Value Reference Range Interpretation Comments POC-Glucose Meter (test 132 mg/dL 70-110 H : TE STED AT [facility] code = 1538) [address] [facility], 770 30: Curer Acid Drum/Techni sara ID = [id number] for SALOMON FLORES Lab Interpretation (test Abnormal code = 76288-6) [facility] CenterPOCT-GLUCOSE [id number] 16:15:00 Test Item Value Reference Range Interpretation Comments POC-GLUCOSE METER 132 mg/dL 70-110 H : TESTED A T [facility] 6720 (NE) (test code = ZARIA Franz [facility], 1538) [address]: Curer Acid Drum/Techni sara ID = [id number] for SALOMON KRUSE ECG 12 [id number] 13:22:10Interface, External Ris In - 08/07/2020 1:22 PM CDTVentricular Rate 84 BPMAtrial Rate 84 BPMP-R Interval 220 msQRS Duration 98 msQ-T Interval 380 msQTC Calculation(Bazett) 449 msP [place] 64 degreesR [place] 55 degreesT [place] 61 degreesSinus rhythm with 1st degree A-V blockNonspecific ST and T wave abnormalityAbnormal ECGNo previous ECGs availableConfirmed by MD Silvia, Justino ([id number]) on 08/07/20201:22:08 [facility] [id number] 06:15:00 Test Item Value Reference Range Interpretation [...] S NOT APPLICABLE FOR DIALYSIS PATIEN TS. Curer Acid Drum ID - PIAYA LSpecimen slightly ictericCBC W/PLT COUNT & AUTO [id number] 04:26:00 Test Item Value Reference Range Interpretation [...] PERCENT (BEAKER) (test code = 2801) Prothrombin time/[id number] 04:18:00 Test Item Value Reference Range Interpretation [...] valves. Lab Interpretation Abnormal (test code = 04504-0) [facility] CenterPROTHROMBIN TIME/[id number] 04:18:00 Test Item Value Reference Range Interpretation [...] is2.5-3.5 for patients wiht mechanical heart valves.POCT-GLUCOSE [id number] 21:14:00 Test Item Value Reference Range Interpretation Comments POC-GLUCOSE METER 138 mg/dL 70-110 H : TESTED A T [facility] 6720 (BEAKER) (test code = ZARIA Franz [facility], 1538) [address]: Curer Acid Drum/Techni sara ID = [id number] for [place]IS [place] CT, BRAIN, WITHOUT [id number] 18:41:00Unlisted Reason for Exam - Click Yes [...] Date/Time: 08/06/2020 18:41:07 CT brain without IV [id number] 18:41:00Interface, External Ris In - 08/06/2020 6:43 [...] Zahida Dobbs MDReport Verified Date/Time: 08/06/2020 18:41:07 [facility] HospitalMAGNESIUM2020-10-12 14:05:00 Test Item Value Reference Range Interpretation Comments MAGNESIUM (BEAKER) (test code = 1.8 mg/dL 1.6-2.6 627) Curer Acid Drum ID - CAROLINA FECHO W CONTRAST & [id number] 13:55:02Ejection FractionSLEH ECHO HEARTLAB MKCKESSON CPACSInterface, External Ris In - 08/06/2020 1:55 PM CDTTransthoracic Echocardiography Report (TTE) Demographics Patient Name SHAREEEIS, Date of Study 08/06/2020 JAIRO Gender Male Visit Number [id number] Race Unknown Room Number C823 Number Date of 1955 Referring Physician Kalina Rodrigez MD Age 64 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 Fact Sheet for Healthcare Providers:https://www.[employer]/sites/default/f sapna/product/documents/F act_Sheet_HC_Providers_L avb_MDHS-VhC-7.pdf Fact Sheet for Healthcare Patients:https://www.[employer]/sites/default/fi les/product/documents/Fa ct_Sheet_Patients_Lyra_S ARS-CoV-2.pdf Performing Laboratory:[facility] [place] [address] [facility] ([facility] REF LABS)2020-08-06 13:22:00 Test Item Value Reference Range Interpretation Comments SARS-COV2/RT-PCR (test Negative Not Detected, Negative, code = 4747843) See external report for linked test SARS-COV-2 PERFORMING LAB [facility] (test code = 7657553) Negative result for this test determines that [...] 564(g) of the Act.Fact Sheet for Healthcare Providers:https://www.[employer]/sites/default/files/product/documents/Fact_Shesada harrisy_WF_Rsxebomfe_Rrmk_LOUF-IaX-7.pdfFact Sheet for Healthcare Patients:https://www.[employer]/sites/default/files/product/ documents/Yaxo_Lphjt_Knjxafkz_Utbq_MRRO-QhF-0.pdfPerforming Laboratory:[facility], [place] [address]ZECG-HPSBMZU METER 2020-08-06 12:21:00 Test Item Value Reference Range Interpretation Comments POC-GLUCOSE METER 180 mg/dL 70-110 H : TESTED A T [facility] 6720 (BEAKER) (test code = ZARIA Franz [facility], 1538) [address]: Curer Acid Drum/Techni sara ID = [id number] for [place] BASIC METABOLIC [id number] 05:00:00 Test Item Value Reference Range Interpretation [...] S NOT APPLICABLE FOR DIALYSIS PATIEN TS. Curer Acid Drum ID - DEMOND MCBC W/PLT COUNT & AUTO [id number] 04:43:00 Test Item Value Reference Range Interpretation [...] PERCENT (BEAKER) (test code = 2801) Troponin [id number] 19:55:00 Test Item Value Reference Range Interpretation Comments Troponin I (test code = 0.02 ng/mL 0-0.03 56051-9) CHANDRIKA (test code = CHANDRIKA) Troponin I [...] RM Lab Interpretation (test Normal code = 64329-3) [facility] CenterTROPONIN [id number] 19:55:00 Test Item Value Reference Range Interpretation [...] failure, acidosis, acute neurological disease, and persistent tachyarrhythmia.Curer Acid Drum ID - RMBASIC METABOLIC PANEL 2020-08-05 19:47:00 [...] S NOT APPLICABLE FOR DIALYSIS PATIEN TS. Curer Acid Drum ID - RMBlood gas, [id number] 19:17:00 Test Item Value Reference Range Interpretation [...] 50 Lab Interpretation (test code = Abnormal 43935-6) [facility] CenterBLOOD GAS, [id number] 19:17:00 Test Item Value Reference Range Interpretation [...] FIO2 (BEAKER) (test code = 1819) 50.0 [id number] 19:11:00 Test Item Value Reference Range Interpretation Comments MAGNESIUM (BEAKER) 2.1 mg/dL 1.6-2.6 Specimen slightly (test code = 627) hemolyzed Curer Acid Drum ID - RMPOCT-GLUCOSE [id number] 18:45:00 Test Item Value Reference Range Interpretation Comments POC-GLUCOSE METER 133 mg/dL 70-110 H : TESTED A T [facility] 6720 (BEAKER) (test code = Z[place]IA [place], 1538) [address]: Curer Acid Drum/Techni sara ID = [id number] for [place] RAD, CHEST, 1 VIEW, NON [id number] 18:01:00Reason for exam:->post TVP placementShould this be [...] RM Lab Interpretation (test Abnormal code = 83103-1) [facility] CenterVALPROIC ACID LEVEL, [id number] 14:05:00 Test Item Value Reference Range Interpretation Comments VALPROIC ACID TOTAL (BEAKER) (test 30 ug/mL 50-100 L code = 924) Therapeutic range for some clinical conditions may be >100 ug/mLOperator ID - RMComprehensive metabolic [id number] 14:03:00 Test Item Value Reference Range Interpretation Comments Protein, Total (test 7.6 6.0- 8.3 gm/dL Speci men slightly code = 2885-2) hemolyzed Albumin (test code = 3.8 g/dL 3.5-5 Specime n slightly 18186-0) hemolyzed Alkaline Phosphatase 104 U/L 40-150 (test code = 6768-6) Total Bilirubin (test 1.1 mg/dL 0.2-1.2 Specim en slightly code = 1974-2) hemolyzed Sodium (test code = 139 meq/L 160-243 5179-2) Potassium (test code = 6.3 meq/L 3.5-5.1 [...] Calcium (test code = 8.6 mg/dL 8.4-10.2 87290-5) AST (test code = 40 U/L 5-34 H Specimen sl ightly 1920-8) hemolyzed ALT (test code = 83 U/L 6-55 H Specimen sl ightly 1742-6) hemolyzed EGFR (test code = 40 mL/min/1.73 [place] [address]-9) NOT ACCURATE CREATININE CLEARANCE IN PREDICTING GLOMERULAR FILTRATION RATE . ESTIMATED GFR I S NOT APPLICABLE FOR DIALYSIS PATIENTS. CHANDRIKA (test code = CHANDRIKA) Curer Acid Drum ID - ROSMAHING Lab Interpretation Abnormal (test code = 50610-2) [facility] CenterCOMPREHENSIVE METABOLIC [id number] 14:03:00 Test Item Value Reference Range Interpretation [...] S NOT APPLICABLE FOR DIALYSIS PATIEN TS. Curer Acid Drum ID - DAYAGB-type Natriuretic Factor (BNP)2020-08-05 13:59:00 Test Item Value Reference Range Interpretation Comments BNP (test code = 02182-3) 29 pg/mL 0-100 CHANDRIKA (test code = CHANDRIKA) Curer Acid Drum ID - ROSMAHING Lab Interpretation (test Normal code = 63424-8) [facility] CenterTROPONIN [id number] 13:59:00 Test Item Value Reference Range Interpretation [...] failure, acidosis, acute neurological disease, and persistent tachyarrhythmia.Curer Acid Drum ID - KORIN-TYPE NATRIURETIC FACTOR (BNP)2020-08-05 13:59:00 Test Item Value Reference Range Interpretation Comments B-TYPE NATRIURETIC PEPTIDE (BEAKER) 29 pg/mL 0-100 (test code = 700) Curer Acid Drum ID - KORINLOOD GAS, [id number] 13:29:00 Test Item Value Reference Range Interpretation [...] 1819) 100.0 CBC W/PLT COUNT & AUTO [id number] 13:29:00 Test Item Value Reference Range Interpretation [...] = 2801) RAD, CHEST, 1 VIEW, NON [id number] 13:12:00Reason for exam:- >intubationShould this be performed [...] MDReport Verified Date/Time: 08/05/2020 13:12:04 Reading Location: [facility] B1 C013T Transitional Reading Room 01:12 PM
[2020-09-20 03:51] LABS: Absolute Lymphocytes (CBC) 0.6 K/uL (0.7-4.9); Basophils % 0.3 % (0-1.3); Hematocrit 25.8 % (39.6-49.0); Lymphocytes % 4.4 % (15.3-44.8); MPV 7.5 fL (7.6-11.3); RBC Red Blood Cell Count 3.05 M/uL (4.33-5.43)
[2020-09-20 03:53] LABS: Protime INR 1.23
[2020-09-20 04:04] LABS: ALT/SGPT 25 U/L (12-78); AST/SGOT 20 U/L (15-37); Albumin 2.5 g/dL (3.4-5.0); Alkaline Phosphatase 92 U/L (45-117); Amylase 32 U/L (25-115); BUN Blood Urea Nitrogen 17 mg/dL (7-18); Bicarbonate 27 mmol/L (21-32); Bilirubin Direct 0.4 mg/dL (0-0.2); Bilirubin Total 1.3 mg/dL (0.2-1.0); CKMB Creatine Kinase MB < 1.0 ng/mL (0.3-3.6); Creatine Phosphokinase 46 U/L (39-308); Glucose Level 171 mg/dL (74-106); Lipase 48 U/L (73-393); Potassium 3.6 mmol/L (3.5-5.1); Protein, Total 7.2 g/dL (6.4-8.2); Sodium Level 137 mmol/L (136-145); Troponin (Emerg Dept Use Only) < 0.02 ng/mL (0.0-0.045)
[2020-09-20 04:16] LABS: Urine Blood 2+ (NEG); Urine Glucose NEGATIVE (NEG); Urine Protein 3+ (NEG)
[2020-09-20 04:39] LABS: Urine Bacteria 20-50 /HPF (NONE SEEN); Urine RBC 20-50 /HPF (NONE SEEN); Urine Urothelial Cells <5 /HPF (NONE SEEN)
[2020-09-20] MEDS ORDERED: CEFTRIAXONE/SWI 1gm 1 GM/10 ML SYR ONE (04:43)
[2020-09-20] MEDS ORDERED: IBUPROFEN 200 MG TAB PO ONE (05:09)
[2020-09-20] MEDS ORDERED: NA CHLORIDE 0.9% 500 ML ONE ×2 (05:30→05:56)
--- NOTE | 2020-09-20 05:51 | ER ---
Nurse's Notes [facility] Name: Raphael Hoyos Age: 64 yrs Sex: Male : 1955 Arrival Date: 09/20/2020 Time: 02:37 Bed 20 Private MD: Diagnosis: Urinary tract infection, site not specified;Fever, unspecified Presentation: 09/20 02:45 Chief complaint: EMS states: Pt was here one week ago and discharged with a UTI, was jb4 not given any prescriptions. Pt simone has a fever of 102, was given 650mg of Tylenol at 0115. We gave him 1g of Tylenol en route to the ED. Pt has darkened urine and is reporting blood in urine. Coronavirus screen: Client denies travel out of the [place] in the last 14 days. Client presents with at least one sign or symptom that may indicate coronavirus-19. Ebola Screen: No symptoms or risks identified at this time. Initial Sepsis Screen: Does the patient meet any 2 criteria?. Risk Assessment: Do you want to hurt yourself or someone else? Patient reports no desire to harm self or others. Onset of symptoms was September 20, 2020. Transition of care: patient was not received from another setting of care. 02:45 Method Of Arrival: EMS: [facility] jb4 02:45 Acuity: DANIELA 3 jb4 02:45 Care prior to arrival: Medication(s) given: Tylenol, 1000 mg. jb4 02:57 Initial Sepsis Screen: Does the patient meet any 2 criteria? Temp <36.0*C (96.8*F)) or jb4 > 38.3*C (100.9*F). Yes Does the patient have a suspected source of infection? Yes: Dysuria/Frequency/Urgency/UTI. Historical: - Allergies: 02:48 NKA; jb4 - Home Meds: 04:48 aspirin 81 mg Oral chew 1 tab once daily [Active]; Colace 100 mg oral cap 1 cap once jb4 daily [Active]; divalproex 250 mg oral Tb24 once daily [Active]; hydralazine 25 mg Oral tab 1 tab 2 time per day, PRN [Active]; Lipitor 40 mg Oral tab 1 tab once daily [Active]; lisinopril 20 mg Oral tab 1 tab once daily [Active]; melatonin 5 mg Oral cap daily [Active]; metoprolol tartrate 50 mg Oral tab 1 tab 2 times per day [Active]; nifedipine 60 mg Oral tr24 1 tab twice a day [Active]; omeprazole 20 mg Oral cpDR 1 cap once daily [Active]; oxybutynin chloride 5 mg Oral tab 1 tab 3 times per day [Active]; Tradjenta 5 mg oral tab 1 tab once daily [Active]; tramadol 50 mg Oral tab 1 tab twice a day [Active]; - PMHx: 02:48 CVA; Diabetes - IDDM; GERD; Hypertension; TIA; jb4 - Immunization history:: Adult Immunizations up to date. - Social history:: Smoking status: Patient denies any tobacco usage or history of. Screenin:37 Abuse screen: Denies threats or abuse. Nutritional screening: No deficits noted. jb4 Tuberculosis screening: No symptoms or risk factors identified. Fall Risk None identified. Assessment: 02:37 General: Appears in no apparent distress. uncomfortable, Behavior is calm, cooperative, jb4 appropriate for age. Pain: Complains of pain in buttocks and neck Pain does not radiate. Pain currently is 8 out of 10 on a pain scale. Neuro: Level of Consciousness is awake, alert, obeys commands, Oriented to person, place, time, situation. Cardiovascular: Patient's skin is warm and dry. Respiratory: Airway is patent Respiratory effort is even, unlabored, Respiratory pattern is regular, symmetrical. GI: No signs and/or symptoms were reported involving the gastrointestinal system. : Wang in place to gravity drainage Urine is cloudy. EENT: No signs and/or symptoms were reported regarding the EENT system. Derm: Skin is intact, Skin is pink, warm \T\ dry. Musculoskeletal: Circulation, motion, and sensation intact. Range of motion: intact in all extremities. 03:30 Reassessment: Patient appears in no apparent distress at this time. Patient and/or jb4 family updated on plan of care and expected duration. Pain level reassessed. Patient is alert, oriented x 3, equal unlabored respirations, skin warm/dry/pink. 04:22 Reassessment: Patient appears in no apparent distress at this time. Patient and/or jb4 family updated on plan of care and expected duration. Pain level reassessed. Patient is alert, oriented x 3, equal unlabored respirations, skin warm/dry/pink. PT turned to his left side, and given a pillow under him per request. 05:00 Reassessment: Patient appears in no apparent distress at this time. Patient and/or jb4 family updated on plan of care and expected duration. Pain level reassessed. Patient is alert, oriented x 3, equal unlabored respirations, skin warm/dry/pink. Pt repositioned to right side, pillow placed under right knee per request. 05:36 Reassessment: Patient appears in no apparent distress at this time. Patient and/or jb4 family updated on plan of care and expected duration. Pain level reassessed. Patient is alert, oriented x 3, equal unlabored respirations, skin warm/dry/pink. Patient states feeling better. 06:00 Reassessment: Report called to [facility]. [facility] 06:24 Reassessment: Patient appears in no apparent distress at this time. PT is resting in [facility] bed with eyes closed, respirations are even and unlabored. No s/s of pain or distress noted. 07:00 Reassessment: RECD REPORT FROM JONATHAN RICCI. 64YO WM P/W FEVER FROM [facility]. PT D/C bp TO [facility], DX WITH UTI. TRANSPORT PENDING. 07:30 Reassessment: Spoke with [facility] staff member who reports that they are attempting to ss arrange transportation now and will call back with ETA. 08:00 Reassessment: Spoke with multiple staff members at [facility] who states they are still ss unable to find transportation for patient and awaiting to hear back from Jemma PERSAUD to see if there are other transportation services that they can use. 08:30 Reassessment: CONTACT WITH [facility]: CONTRACTED EMS SERVICE UNAVAILABLE, FACILITY bp ATTEMPTING CONTACT WITH OTHER SERVICES. 09:00 Reassessment: Spoke with [facility] Jemma PERSAUD who states that they are unable to arrange ss transportation at this time. Will continue to attempt to arrange transportation. 10:23 Reassessment: EMS not available at this time for transportation. [employer] Lucy states they will call as soon as they are available for transportation. 11:07 Reassessment: EMS AT B/S FOR D/C. bp Vital Signs: 02:54 BP 106 / 62; Pulse 73; Resp 16; Temp 102.4(O); Pulse Ox 100% on R/A; Weight 90.72 kg jb4 (R); Height 5 ft. 9 in. (175.26 cm); Pain 8/10; 03:45 BP 106 / 59; Pulse 73; Resp 16; Temp 100.5(TE); Pulse Ox 100% on R/A; jb4 04:45 BP 105 / 68; Pulse 67; Resp 18; Temp 101.6(O); Pulse Ox 100% on R/A; jb4 05:30 BP 105 / 66; Pulse 63; Resp 16; Temp 100.3(O); Pulse Ox 100% on R/A; jb4 06:30 BP 121 / 65; Pulse 60; Resp 17; Temp 98.5(TE); Pulse Ox 97% on R/A; jb4 07:30 BP 114 / 69; Pulse 60; Resp 18; Temp 98.5; Pulse Ox 96% ; bp 02:54 Body Mass Index 29.53 (90.72 kg, 175.26 cm) jb4 04:45 Provider notified of Pt's temp, verbal order recieved to give 600mg of Motrin PO jb4 ED Course: 02:37 Patient arrived in ED. cl3 02:40 Rivas Gutiérrez MD is Attending Physician. tw4 02:43 Ethan Kumar, RN is Primary Nurse. jb4 02:47 Triage completed. jb4 02:48 Arm band placed on right wrist. jb4 03:07 Chest Single View XRAY In Process Unspecified. EDMS 03:15 Inserted saline lock: 18 gauge in right antecubital area, using aseptic technique. fu Blood collected. 03:19 First set of blood cultures drawn by ia. fu 03:32 COVID-19 Sent. fu 03:32 Flu Sent. fu 03:32 Strep Sent. fu 03:39 Second set of blood cultures drawn. fu 03:52 Amylase, Serum Sent. fu 03:52 Basic Metabolic Panel Sent. fu 04:40 Throat Culture Sent. fu 07:00 Primary Nurse role handed off by Ethan Kumar, RN bp 07:00 Abdulaziz Daly, RADHAMES is Primary Nurse. bp 07:00 Patient has correct armband on for positive identification. Bed in low position. Call bp light in reach. Side rails up X2. 07:00 No provider procedures requiring assistance completed. IV discontinued, intact, bp bleeding controlled, No redness/swelling at site. Pressure dressing applied. Administered Medications: 04:28 Not Given (Physician Discretion): Rocephin (cefTRIAXone) 1 grams IM once tw4 04:40 Drug: Rocephin - (cefTRIAXone) 1 grams Route: IVPB; Infused Over: 30 mins; Site: right fu antecubital; 07:51 Follow up: IV Status: Completed infusion; IV Intake: 50ml bp 04:50 Drug: Motrin 600 mg Route: PO; jb4 05:30 Follow up: Response: No adverse reaction; Marked relief of symptoms; Temperature is jb4 decreased 05:21 Drug: NS 0.9% 500 ml Route: IV; Rate: bolus; Site: right antecubital; jb4 05:38 Follow up: Response: No adverse reaction; IV Status: Completed infusion; IV Intake: jb4 500ml 05:46 Drug: NS 0.9% 500 ml Route: IV; Rate: 250 ml/hr; Site: right antecubital; jb4 07:51 Follow up: IV Status: Completed infusion; IV Intake: 500ml bp Intake: 05:38 IV: 500ml; Total: 500ml. jb4 07:51 IV: 500ml; Total: 1000ml. bp 07:51 IV: 50ml; Total: 1050ml. bp Outcome: 05:50 Discharge ordered by . tw4 07:49 Discharged to long-term. Report called to [facility] bp 07:49 Condition: stable 07:49 Discharge instructions given to patient, long-term, Instructed on discharge instructions, follow up and referral plans. medication usage, Demonstrated understanding of instructions, follow-up care, medications, Prescriptions given X 1. 11:07 Patient left the ED. bp Signatures: Dispatcher [employer] EDMS Gabriella Giron RN RN ss Bryson, James, RN RN jb4 Ron Escobedo RN RN fu Peltier, Brian, RN RN bp Wadley, Terrence, MD MD tw4 Osito Walker cl3 Corrections: (The following items were deleted from the chart) 05:03 04:22 Reassessment: Patient appears in no apparent distress at this time. Patient jb4 and/or family updated on plan of care and expected duration. Pain level reassessed. Patient is alert, oriented x 3, equal unlabored respirations, skin warm/dry/pink. PT turned to his left side, and given a pillow under him per request. jb4
--- NOTE | 2020-09-20 05:52 | EDPHYS ---
Physician Documentation [facility] Name: Raphael Hoyos Age: 64 yrs Sex: Male : 1955 Arrival Date: 09/20/2020 Time: 02:37 Bed 20 Private MD: ED Physician Rivas Gutiérrez HPI: 09/20 03:05 This 64 yrs old Male presents to ER via EMS with complaints of Fever. tw4 03:05 The patient reports fever, not measured (subjective). Onset: The symptoms/episode tw4 began/occurred today. Modifying factors: there are no obvious modifying factors. Associated signs and symptoms: Pertinent positives:. Severity of symptoms: At their worst the symptoms were moderate in the emergency department the symptoms are unchanged. The patient has not experienced similar symptoms in the past. The patient has not recently seen a physician. Historical: - Allergies: 02:48 NKA; jb4 - Home Meds: 04:48 aspirin 81 mg Oral chew 1 tab once daily [Active]; Colace 100 mg oral cap 1 cap once jb4 daily [Active]; divalproex 250 mg oral Tb24 once daily [Active]; hydralazine 25 mg Oral tab 1 tab 2 time per day, PRN [Active]; Lipitor 40 mg Oral tab 1 tab once daily [Active]; lisinopril 20 mg Oral tab 1 tab once daily [Active]; melatonin 5 mg Oral cap daily [Active]; metoprolol tartrate 50 mg Oral tab 1 tab 2 times per day [Active]; nifedipine 60 mg Oral tr24 1 tab twice a day [Active]; omeprazole 20 mg Oral cpDR 1 cap once daily [Active]; oxybutynin chloride 5 mg Oral tab 1 tab 3 times per day [Active]; Tradjenta 5 mg oral tab 1 tab once daily [Active]; tramadol 50 mg Oral tab 1 tab twice a day [Active]; - PMHx: 02:48 CVA; Diabetes - IDDM; GERD; Hypertension; TIA; jb4 - Immunization history:: Adult Immunizations up to date. - Social history:: Smoking status: Patient denies any tobacco usage or history of. ROS: 03:05 Eyes: Negative for injury, pain, redness, and discharge. tw4 03:05 Constitutional: Positive for fever, Negative for body aches, chills, fatigue. 03:05 Unable to obtain ROS due to baseline dementia. Exam: 03:05 Constitutional: This is a well developed, well nourished patient who is awake, alert, tw4 and in no acute distress. Head/Face: Normocephalic, atraumatic. Chest/axilla: Normal chest wall appearance and motion. Nontender with no deformity. No lesions are appreciated. Cardiovascular: Regular rate and rhythm with a normal S1 and S2. No gallops, murmurs, or rubs. Normal PMI, no JVD. No pulse deficits. Respiratory: Lungs have equal breath sounds bilaterally, clear to auscultation and percussion. No rales, rhonchi or wheezes noted. No increased work of breathing, no retractions or nasal flaring. Abdomen/GI: Soft, non-tender, with normal bowel sounds. No distension or tympany. No guarding or rebound. No evidence of tenderness throughout. Back: No spinal tenderness. No costovertebral tenderness. Full range of motion. MS/ Extremity: Pulses equal, no cyanosis. Neurovascular intact. Full, normal range of motion. Vital Signs: 02:54 BP 106 / 62; Pulse 73; Resp 16; Temp 102.4(O); Pulse Ox 100% on R/A; Weight 90.72 kg jb4 (R); Height 5 ft. 9 in. (175.26 cm); Pain 8/10; 03:45 BP 106 / 59; Pulse 73; Resp 16; Temp 100.5(TE); Pulse Ox 100% on R/A; jb4 04:45 BP 105 / 68; Pulse 67; Resp 18; Temp 101.6(O); Pulse Ox 100% on R/A; jb4 05:30 BP 105 / 66; Pulse 63; Resp 16; Temp 100.3(O); Pulse Ox 100% on R/A; jb4 06:30 BP 121 / 65; Pulse 60; Resp 17; Temp 98.5(TE); Pulse Ox 97% on R/A; jb4 07:30 BP 114 / 69; Pulse 60; Resp 18; Temp 98.5; Pulse Ox 96% ; bp 02:54 Body Mass Index 29.53 (90.72 kg, 175.26 cm) jb4 04:45 Provider notified of Pt's temp, verbal order recieved to give 600mg of Motrin PO jb4 MDM: 02:40 Patient medically screened. 09/20 02:41 Order name: Amylase, Serum 09/20 02:41 Order name: Basic Metabolic Panel 09/20 02:41 Order name: Blood Culture Adult (2) 09/20 02:41 Order name: CBC with Diff; Complete Time: 04:00 09/20 04:18 Interpretation: Normal except: WBC 13.1; RBC 3.05; HGB 9.2; HCT 25.8; PLT 257; LYMA tw4 0.6; NEUT A 11.1; LYM% 4.4; PEPITO% 84.2; MPV 7.5. 09/20 02:41 Order name: Ckmb; Complete Time: 04:16 09/20 04:18 Interpretation: Within normal limits: CKMB < 1.0. 09/20 02:41 Order name: CPK; Complete Time: 04:16 09/20 04:18 Interpretation: Within normal limits: CPK 46. 09/20 02:41 Order name: Lactate; Complete Time: 04:00 09/20 04:21 Interpretation: Within normal limits: LAC 1.1. 09/20 02:41 Order name: LFT's; Complete Time: 04:16 09/20 04:18 Interpretation: Normal except: BILIT 1.3; A/G 0.5; GLOB 4.7; ALB 2.5; BILID 0.4. 09/20 02:41 Order name: Lipase; Complete Time: 04:16 09/20 04:18 Interpretation: Normal except: LIP 48. 09/20 02:42 Order name: Procalcitonin 09/20 02:42 Order name: Protime (+inr); Complete Time: 04:00 09/20 04:19 Interpretation: Normal except: PT 14.5. 09/20 02:42 Order name: Ptt, Activated; Complete Time: 04:00 09/20 04:22 Interpretation: Within normal limits: PTT 27.7. 09/20 02:42 Order name: Troponin (emerg Dept Use Only); Complete Time: 04:16 09/20 04:22 Interpretation: Within normal limits: TROPED < 0.02. 09/20 02:42 Order name: Urine Microscopic Only 09/20 02:42 Order name: Chest Single View XRAY 09/20 02:42 Order name: Cardiac monitoring; Complete Time: 03:38 [facility] 09/20 02:42 Order name: EKG - Nurse/Tech; Complete Time: 02:59 [facility] 09/20 02:42 Order name: COVID-19 [facility] 09/20 02:42 Order name: Flu; Complete Time: 04:20 09/20 02:42 Order name: Strep; Complete Time: 04:20 [facility] 09/20 02:42 Order name: Amylase; Complete Time: 04:16 [facility] 09/20 04:18 Interpretation: Within normal limits: JALYN 32. 09/20 02:42 Order name: Basic Metabolic Panel; Complete Time: 04:16 [facility] 09/20 04:18 Interpretation: Normal except: GLUC 171; BUN 17; CRE 1.41; GFR 51. 09/20 03:53 Order name: Urine Dipstick--Ancillary (enter results); Complete Time: 04:20 [facility] 09/20 04:22 Interpretation: Normal except: UBLD 2+; UPROT 3+; UESTR TRACE. 09/20 04:19 Order name: Throat Culture [facility] 09/20 04:41 Order name: Urine Culture [facility] 09/20 02:42 Order name: IV Saline Lock - Large Bore; Complete Time: 03:31 09/20 02:42 Order name: Labs collected and sent; Complete Time: 03:32 09/20 02:42 Order name: O2 Per Protocol; Complete Time: 03:38 09/20 02:42 Order name: O2 Sat Monitoring; Complete Time: 03:38 09/20 02:42 Order name: Urine Dipstick-Ancillary (obtain specimen); Complete Time: 03:52 09/20 02:42 Order name: Document PUI#; Complete Time: 04:04 09/20 02:42 Order name: Droplet/Contact Precautions; Complete Time: 04:04 09/20 02:42 Order name: Notify Health Dept [phone]/ ; Complete Time: 04:04 tw4 EC:45 Rate is 73 beats/min. Rhythm is regular. QRS [place] is Normal. [place] interval is normal. QRS tw4 interval is normal. QT interval is normal. No Q waves. T waves are Normal. No ST changes noted. Clinical impression: Normal ECG. Interpreted by me. Reviewed by me. Administered Medications: 04:28 Not Given (Physician Discretion): Rocephin (cefTRIAXone) 1 grams IM once tw4 04:40 Drug: Rocephin - (cefTRIAXone) 1 grams Route: IVPB; Infused Over: 30 mins; Site: right fu antecubital; 07:51 Follow up: IV Status: Completed infusion; IV Intake: 50ml bp 04:50 Drug: Motrin 600 mg Route: PO; jb4 05:30 Follow up: Response: No adverse reaction; Marked relief of symptoms; Temperature is jb4 decreased 05:21 Drug: NS 0.9% 500 ml Route: IV; Rate: bolus; Site: right antecubital; jb4 05:38 Follow up: Response: No adverse reaction; IV Status: Completed infusion; IV Intake: jb4 500ml 05:46 Drug: NS 0.9% 500 ml Route: IV; Rate: 250 ml/hr; Site: right antecubital; jb4 07:51 Follow up: IV Status: Completed infusion; IV Intake: 500ml bp Disposition: 09/20/20 05:50 Discharged to Home. Impression: Urinary tract infection, site not specified, Fever, unspecified. - Condition is Stable. - Discharge Instructions: Fever, Adult, Urinary Tract Infection, Adult. - Prescriptions for Macrobid 100 mg Oral Capsule - take 1 capsule by ORAL route every 12 hours for 10 days; 20 capsule. - SBAR form, Medication Reconciliation Form, Thank You Letter, Antibiotic Education, Prescription Opioid Use form. - Follow up: Private Physician; When: Upon discharge from the Emergency Department; Reason: Recheck today's complaints, Continuance of care, Re-evaluation by your physician. - Problem is new. - Symptoms have improved. Signatures: Dispatcher [employer] EDMS Best Russell PA PA [id number] Ethan Kumar RN RN jb4 Ron Escobedo RN RN Abdulaziz Daly RN RN Rivas Bustos MD MD tw4 Corrections: (The following items were deleted from the chart) 11:07 05:50 09/20/2020 05:50 Discharged to Home. Impression: Urinary tract infection, site bp not specified; Fever, unspecified. Condition is Stable. Forms are Medication Reconciliation Form, Thank You Letter, Antibiotic Education, Prescription Opioid Use. Follow up: Private Physician; When: Upon discharge from the Emergency Department; Reason: Recheck today's complaints, Continuance of care, Re-evaluation by your physician. Problem is new. Symptoms have improved. tw4
--- NOTE | 2020-09-20 10:32 | RAD REPORT ---
EXAM DESCRIPTION: [facility] Single View09/20/2020 3:07 am CLINICAL HISTORY: fever COMPARISON: September 12, 2020 FINDINGS: The lungs appear clear of acute infiltrate. The heart is mildly enlarged. Pacemaker leads are in place. IMPRESSION: No acute abnormalities displayed
[2020-09-20 11:21] VITALS: TEMP 98.5
[2020-09-20 11:23] VITALS: BP 114/69; O2SAT 96
== END 2020-09-20 11:07 | disposition home or self-care (01) ==
LOC: ER 02:36
DX: N39.0 Urinary tract infection, site not specified (principal); Z20.828 Contact with and (suspected) exposure to other viral communicable diseases; I10 Essential (primary) hypertension; E11.9 Type 2 diabetes mellitus without complications; Z79.82 Long term (current) use of aspirin; Z86.73 Personal history of transient ischemic attack (TIA), and cerebral infarction without residual deficits
CPT/HCPCS: 96365; 93005; 87040 ×2; 87070; 87088; 85025; 87086; 80048; 36415; 82150; 82550; 85610; 80076; 87081; 83605; 85730; 87077; 87186; 84484; 82553; 83690; 84145; 87804 ×2; 71045; 99284; 96366; U0002; J0696; J7040 ×2; 81003; 81015

== ENCOUNTER 2020-09-21 11:42 | Inpatient (IN) | payer OTHER ==
--- OUTSIDE RECORDS SUMMARY | 2020-09-21 11:45 | XMS REPORT | Clinical Summary ---
:1955 Author Organization [facility] Address [address] [place] [address] Care Team Providers Name Role Phone Unavailable [...] Bradycardia MD Albert Tyson Narendra, MD after 09/21/2019 Social History Tobacco Use Types Packs/Day Years [...] VACCINE (#1) 2020 Implants Implanted Type Area Supervisor Type Bar And Segment Device Shelf Model / Identifier Expiration Serial / Date Lot Capsurefix Novus Mri Surescan 5076-58 Pacemaker Left: [employer] 06/11/2022 5076-58 / Implanted: Qty: 1 on 08/07/2020 by Bienvenido Gracia, Adele Brady MD at [facility] Lead Heart [id number] / Description:RV Lead Capsurefix Novus Mri Heart [employer] 2 [id number] / Implanted: Qty: 1 on 08/07/2020 by Adele Jane MD at [facility] [id number] / Description:RA Lead Callao Xt Dr Louise Conklin Left: Chest [employer] [id number] / Implanted: Qty: 1 on 08/07/2020 by Adele Jane MD at [facility] [id number] / Description:Generator Procedures Procedure Name Priority Date/Time [...] 380 ms QTC Calculation(Bazett) 449 ms P Elber[place] 64 degrees R [place]ber[place] 55 degrees T [place]ber[place] 61 degrees Sinus rhythm with 1st degree [...] i n the results section . after 09/21/2019 Results CBC with platelet count + automated diff (08/10/2020 3:36 AM CDT)Only the most recent of6 resultswithin the time period is included. Pathologist Sig nature WBC 5.9 3.5 - 10.5 [facility] K/L [facility] RBC 3.26 (L) 4.63 - 6.08 [facility] M/L [facility] Hemoglobin 10.1 (L) 13.7 - 17.5 [facility] GM/DL [facility] Hematocrit 30.1 (L) 40.1 - 51.0 % [facility] MCV 92.3 (H) 79.0 - 92.2 fL [facility] MCH 31.0 25.7 - 32.2 pg [facility] MCHC 33.6 32.3 - 36.5 [facility] GM/DL [facility] RDW 14.7 (H) 11.6 - 14.4 % [facility] Platelets 148 (L) 150 - 450 K/CU [facility] MPV 10.9 9.4 - 12.4 fL [facility] nRBC 0 0 - 0 /100 WBC [facility] % Neutros 56 % [facility] % Lymphs 22 % [facility] % Monos 17 % [facility] % Eos 5 % [facility] % Baso 0 % [facility] # Neutros 3.29 1.78 - 5.38 [facility] # Lymphs 1.27 (L) 1.32 - 3.57 [facility] # Monos 1.00 (H) 0.30 - 0.82 [facility] # Eos 0.28 0.04 - 0.54 [facility] # Baso 0.01 0.01 - 0.08 [facility] Immature 0 0 - 1 % [facility] Specimen Blood Performing Organization Address City/State/Zipcode Phone Number [facility] [address] [place] [address] CENTER Magnesium (08/10/2020 3:36 AM CDT)Only the most recent of3 resultswithin the time period is included. Pathologist Sig nature Magnesium 1.7 1.6 - 2.6 mg/dL [facility] Specimen Blood Narrative Performed At Life Manager ID - EDASI [facility] Performing Organization Address City/State/Zipcode Phone Number [facility] [address] [place] [address] CENTER Hemoglobin A1c (08/10/2020 3:36 AM CDT)Only the most recent of2 resultswithin the time period is included. Pathologist Sig nature Hemoglobin A1C 6.2 (H) 4.3 - 6.1 % [facility] Specimen Blood Narrative Performed At Life Manager ID - ADMIN [facility] Performing Organization Address City/State/Zipcode Phone Number [facility] [address] [place], [place] [address] Basic metabolic panel (08/10/2020 3:36 AM CDT)Only the most recent of6 results within the time period is included. Sodium 142 136 - 145 meq/L [facility] Potassium 4.0 3.5 - 5.1 meq/L [facility] Chloride 107 98 - 107 meq/L [facility] CO2 27 22 - 29 meq/L [facility] BUN 23 (H) 7 - 21 mg/dL [facility] Creatinine 1.35 (H) 0.57 - 1.25 [facility] mg/dL [facility] Glucose 150 (H) 70 - 105 mg/dL [facility] Calcium 8.1 (L) 8.4 - 10.2 [facility] mg/dL [facility] EGFR 53Comment: ESTIMATED mL/min/1.73 sq [facility] GFR IS NOT m [facility] ACCURATE [place] CREATININE CLEARANCE IN PREDICTING GLOMERULAR FILTRATION RATE. ESTIMATED GFR IS NOT APPLICABLE FOR DIALYSIS PATIENTS. Specimen Blood Narrative Performed At Life Manager ID - JAVIERASI [facility] Performing Organization Address City/State/Zipcode Phone Number [facility] [address] [place] [address] CENTER XR chest 1 view portable / bedside (08/08/2020 7:16 AM CDT)Only the most recent of4 resultswithin the time period is included. Specimen Narrative Performed At FINAL REPORT [facility] CLINICAL HISTORY: post-ppm TECHNIQUE: 1 view of the chest. COMPARISON: 08/07/2020 IMPRESSION: A left chest wall pacemaker is again see n without pneumothorax. There are no new infiltrates or significant ef fusions. Cardiomegaly is again noted. Signed: Michelle Tariq MD Report Verified Date/Time: 08/08/2020 08:26:51 Reading Location: [facility] Reading Room Procedure Note Interface, External Ris [...] 0 8:26:51 Reading Location: [facility] Reading Room Performing Organization Address City/[facility] Phone Number GE RIS POC-Glucose meter (08/07/2020 4:02 PM CDT)Only the most recent of4 results within the time period is included. POC-Glucose Meter 132 (H) 70 - 110 mg/dL [facility] Comment: [facility] : TESTED AT [address], [address] CENTER : Life Manager/Separator Operator ID = [id number] for SALOMON FLORES Specimen Blood Performing Organization Address [facility] Centercode Phone Number [place] [phone] CENTER ECG 12 lead (08/07/2020 6:47 AM CDT)Only the most recent of3 resultswithin the time period is included. Specimen Narrative Performed At This result has an attachment that is no t available. Ventricular Rate 84 BPM GE MUSE Atrial Rate 84 BPM P-R Interval 220 ms QRS Duration 98 ms Q-T Interval 380 ms QTC Calculation(Bazett) 449 ms P [place] 64 degrees R [place]ber[place] 55 degrees T [place] 61 degrees Sinus rhythm with 1st degree A-V block Nonspecific ST and T wave abnormality Abnormal ECG No previous ECGs available Confirmed by MD Silvia, Justino ([id number]) on 07/26 1:22:08 PM Procedure Note Interface, External Ris In - 08/07/2020 1:22 PM CDT Ventricular Rate 84 BPM Atrial Rate 84 BPM P-R Interval 220 ms QRS Duration 98 ms Q-T Interval 380 ms QTC Calculation(Bazett) 449 ms P [place] 64 degrees R [place] 55 degrees T [place] 61 degrees Sinus rhythm with 1st degree A-V block Nonspecific ST and T wave abnormality Abnormal ECG No previous ECGs available Confirmed by MD Vega Roberto ([id number]) on 08/07/2020 1:22:08 PM Performing Organization Address City/State/Zipcode Phone Number [facility] Prothrombin time/INR (08/07/2020 3:57 AM CDT) Pathologist Sig nature Protime 15.9 (H) 11.9 - 14.2 seconds [facility] INR 1.31 <=5.90 [facility] Specimen Blood Narrative Performed At Effective 03/23/2019: PT Reference Range [facility] Change New: 11.9-14.2 Previous: 11.7-14.7 RECOMMENDED COUMADIN/WARFARIN INR THERAPY RANGES STANDARD DOSE: 2.0-3.0 Includes: PROPHYLAXIS for venous thrombosis, systemic embolization; TREATMENT for venous thrombosis and/or pulmonary embolus. HIGH RISK: Target INR is 2.5-3.5 for patients wiht mechanical heart valves. Performing Organization Address City/[facility] Phone Number [facility] [address] [place] [address] brain without IV contrast (08/06/2020 6:26 PM CDT) Specimen Narrative Performed At FINAL REPORT [employer] [facility] CT, BRAIN, WITHOUT IV CONTRAST INDICATION: Altered [...] AM CDT) Pathologist Sig nature Ejection Fraction [facility] Specimen Narrative Performed At Transthoracic Echocardiography Report (T TE) [facility] Demographics Patient Name SHAREEEIS, Date of Study 08/06/2020 RAPHAEL Gender Male Visit Number [id number] Race Unknown Room Number C823 Number Date of 1955 Referring Physician Kalina Rodrigez MD Age 64 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(s) 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, [facility] Operating Room Coordinator Shane Michelle Interpreting David Varner MD Physician [...] douglas 08/06/2020 RAPHAEL Gender Male Visit Number [id number] Race Unknown Room Numb er C823 Number Date of 1955 Referring Physician Kalina Rodrigez MD Age 64 year(s) 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 Zabala, [facility] Operating Room Coordinator Shane Michelle Interpret ing David Varner MD [...] Number [facility] SARS-CoV2/RT-PCR ([facility]) (08/05/2020 10:59 PM CDT) SARS-COV2/RT-PCR Negative Not Detected, [facility] Negative, See [facility] external report CENTER for linked test SARS-COV-2 [facility] NINA [facility] PERFORMING LAB [facility] Specimen Other - Nasopharyngeal wall structure (b ayden structure) Narrative Performed At Negative result for this test determines that [facility] SARS-CoV-2 RNA was not present in the [...] the Act. Fact Sheet for Healthcare Providers: https://www.[employer]/sites/default/files/pro duct/documents/Fact_Sheet_HC_Providers_Lyra_SA RS-CoV-2.pdf Fact Sheet for Healthcare Patients: https://www.[employer]/sites/default/files/pro duct/documents/Fact_Sheet_Patients_Lyra_SARS-C oV-2.pdf Performing Laboratory: [address] [place] [address] Performing Organization Address City/State/Zipcode Phone Number [address] [address] CENTER Troponin I (08/05/2020 7:10 PM CDT)Only the most recent of2 resultswithin the time period is included. Pathologist Sig nature Troponin I 0.02 0.00 - 0.03 ng/mL [facility] Specimen Blood Narrative Performed At Troponin I (TnI) levels must be interpreted [facility] in the context of the presenting symptoms and the clinical findings. Elevated TnI levels indicate myocardial damage, but are not specific for ischemic heart disease. Elevated TnI levels are seen in patients with other cardiac conditions (including myocarditis and congestive heart failure), and slight TnI elevations occur in patients with other conditions, including sepsis, renal failure, acidosis, acute neurological disease, and persistent tachyarrhythmia. Life Manager ID - RM Performing Organization Address City/[facility]/Zipcode Phone Number [address] [address] [place] Blood gas, arterial (08/05/2020 7:10 PM CDT)Only the most recent of2 results within the time period is included. Pathologist Sig nature pH, Arterial 7.54 (H) 7.35 - 7.45 [facility] pCO2, Arterial 27 (L) 35 - 45 mm Hg [facility] pO2, Arterial 136 (H) 80 - 90 mm Hg [facility] O2 Sat, Arterial 99.1 (H) 96.0 - 97.0 % [facility] HCO3, Arterial 23 21 - 29 mmol/L [facility] Base Excess, Arterial 0.8 -2.0 - 3.0 [facility] mmol/L [facility] Patient Temperature 36.0 [facility] FIO2 50.0 [facility] Specimen Blood, Arterial Performing Organization Address [facility] Phone Number [address] [address] [place] B-type Natriuretic Factor (BNP) (08/05/2020 1:13 PM CDT) Pathologist Sig nature BNP 29 0 - 100 pg/mL [facility] Specimen Blood Narrative Performed At Life Manager ID - ERIC [facility] Performing Organization Address [facility] Phone Number [address] [address] [place] Valproic acid level, total (08/05/2020 1:13 PM CDT) Pathologist Sig nature Valproic Acid, Total 30 (L) 50 - 100 ug/mL [facility] Specimen Blood Narrative Performed At Therapeutic range for some clinical [facility] conditions may be >100 ug/mL Life Manager ID - RM Performing Organization Address [facility] Phone Number [address] [address] CENTER Comprehensive metabolic panel (08/05/2020 1:13 PM CDT) Protein, Total 7.6Comment: 6.0 - 8.[address] [facility] Specimen slightly gm/dL [facility] Albumin 3.8Comment: 3.5 - 5.0 [facility] Specimen slightly g/dL [facility] Alkaline 104 40 - 150 U/L [facility] Phosphatase [facility] Total Bilirubin 1.1Comment: 0.2 - 1.2 [facility] Specimen slightly mg/dL [facility] Sodium 139 136 - 145 [facility] meq/L [facility] Potassium 6.3 (HH)Comment: 3.5 - 5.1 [facility] Specimen slightly meq/L [facility] Chloride 109 (H) 98 - 107 [facility] meq/L [facility] CO2 24 22 - 29 meq/L [facility] BUN 43 (H) 7 - 21 mg/dL [facility] Creatinine 1.72 (H)Comment: 0.57 - 1.25 [facility] Specimen slightly mg/dL [facility] Glucose 187 (H) 70 - 105 [facility] mg/dL [facility] Calcium 8.6 8.4 - 10.2 [facility] mg/dL [facility] AST 40 (H)Comment: 5 - 34 U/L [facility] Specimen [facility] ALT 83 (H)Comment: 6 - 55 U/L [facility] Specimen [facility] EGFR 40Comment: mL/min/1.73 [facility] ESTIMATED GFR IS sq m [facility] NOT ACCURATE MEDICAL CENTER CREATININE CLEARANCE IN PREDICTING GLOMERULAR FILTRATION RATE. ESTIMATED GFR IS NOT APPLICABLE FOR DIALYSIS PATIENTS. Specimen Blood Narrative Performed At Life Manager ID - DAYAG [facility] CENTER Performing Organization Address City/State/Zipcode Phone Number [facility] [address] [place] [address] CENTER ARRYTHMIA IMPLANT REPORT - SCAN (08/05/2020)Only the most recent of2 results within the time period is included. Narrative Performed At This result has an attachment that is no t available. Ordered by an unspecified provider. after 09/21/2019 Insurance Payer Benefit Plan Subscriber ID Effective Dates Phone Address Type / Group MEDICAID - [facility] [id number] 2018-Ladarius darling MEDICAID MGD STAR PLAN nt [facility] ([place]) [place] [address] Advance Directives For more information, please contact: [phone] Code Status Date Activated Date Inactivated Comments Full Code 08/05/2020 12:38 PM 08/10/2020 8:02 PM This code status was determined by: Patient
--- OUTSIDE RECORDS SUMMARY | 2020-09-21 11:47 | XMS REPORT | Continuity of Care Document ---
:1955 Author Organization [facility] t Address [address] [place] [address] Care Team Providers Name Role Phone Jesse Rodrigez MD Attending Clinician Albert ZAZUETA Attending Clinician Caitlyn Ray MD Attending Clinician Kash Ovalles MD Attending Clinician JESSE RODRIGEZ Attending Clinician Unavailable JESSE RODRIGEZ Admitting Clinician Unavailable Payers Payer Name Policy Type Policy Effective Date Expiration Date Sour ce Number MEDICAID - [id number] 2018 [facility] MEDICAID MGD 00:00:00 - [facility] STAR [id number]-PresentMedi caid Contracted Problems Condition Condition Condition Status [...] Date Quantity Comments Source Sex Assigned At [facility] Medications Ordered Filled Start Stop [...] mg Medical capsule 00 :00 total) by [facility] mouth 4 (four) times daily before meals and nightly for 7 days. mINOCYCLine 2019-10 2020- No 100mg Take [address] [facility] [address] (MINOCIN,DY 0-16 10-19 capsule Luke s - NACIN) 100 00:00: 23:59 (100 mg Med ical MG capsule 00 :00 total) by [facility] mouth every 12 (twelve) hours for 3 days. atorvastati 2019-10- No 1{tbl} QD Take [address] [facility] (LIPITOR) 0-07 10-16 tablet by Ericka kes - 40 MG 00:00: 00:00 mouth Medical tablet 00 :00 nightly. [facility] divalproex 2020- No 1{tbl} QD Take [address] (DEPAKOTE) 9-28 10-16 tablet by Reji es - 500 MG EC 00:00: 00:00 mouth Medica l tablet 00 :00 nightly. [facility] NIFEdipine 2020- No 1{tbl} QD Take [address] (ADALAT CC) 9-24 10-16 tablet by Ericka kes - 60 MG 24 hr 00:00: 00:00 mouth Medi jadiel tablet 00 :00 daily. [facility] traZODone 2020- No 1{tbl} QD Take [address] [facility] (DESYREL) 9-24 10-16 tablet by Luke s - 100 MG 00:00: 00:00 mouth Medical tablet 00 :00 nightly. [facility] traMADoL 2020- No 1{tbl} QD Take [address] [facility] (ULTRAM) 50 9-23 10-16 tablet by Ericka kes - mg tablet 00:00: 00:00 mouth Medica l 00 :00 nightly. [facility] lisinopriL 2020- No 1{tbl} Q.5D Take [address] (PRINIVIL,Z 9-21 10-16 tablet by Ericka kes - ESTRIL) 20 00:00: 00:00 mouth 2 Med ical MG tablet 00 :00 (two) Center times daily. oxybutynin 2019- No 1{tbl} QD Take [address] (DITROPAN) 8-30 10-16 tablet by Reji es - 5 MG tablet 00:00: 00:00 mouth Medi jadiel 00 :00 daily. [facility] Tradjenta 5 2019- No 1{tbl} QD Take [address] mg Tab 8-28 10-16 tablet by [facility] - 00:00: 00:00 mouth Medical 00 :00 daily. [facility] meloxicam 2019- No 1{tbl} QD Take [address] [facility] (MOBIC) 15 8-25 10-16 tablet by Reji es - MG tablet 00:00: 00:00 mouth Medica l 00 :00 daily. [facility] metoprolol 2019- No 1{tbl} QD Take [address] tartrate 7-23 10-16 tablet by [facility] - (LOPRESSOR) 00:00: 00:00 mouth Medi jadiel 100 MG 00 :00 daily. Center tablet Vital Signs Vital Name Observation Time Observation Value Comments Source Systolic blood 2020-08-10 15:39:00 134 mm[Hg] [facility] Diastolic blood 2020-08-10 15:39:00 58 mm[Hg] [facility] S [facility] Heart rate 2020-08-10 15:39:00 74 /min [facility] Body temperature 2020-08-10 15:39:00 37.33 Tanika [facility] Respiratory rate 2020-08-10 15:39:00 17 /min [facility] Oxygen saturation in 2020-08-10 15:39:00 95 /min [facility] Arterial blood by Medical Ce nter Pulse oximetry Body weight 2020-08-07 06:00:00 117 kg [facility] BMI 2020-08-07 06:00:00 40.40 kg/m2 [facility] Body height 2020-08-05 12:30:00 170.2 cm [facility] Procedures Procedure Date / Time Performed Performing Clinician Sourc e BASIC METABOLIC PANEL (7) 2020-08-10 03:36:00 Gabriele Whatley [facility] HEMOGLOBIN A1C 2020-08-10 03:36:00 Albert Hilton [facility] MAGNESIUM 2020-08-10 03:36:00 [facility] CBC W/PLT COUNT & AUTO 2020-08-10 03:36:00 [facility] HEMOGLOBIN A1C 2020-08-09 15:09:00 Tyler Avis [facility] BASIC METABOLIC PANEL (7) 2020-08-09 06:17:00 [facility] CBC W/PLT COUNT & AUTO 2020-08-09 06:17:00 [facility] XR CHEST 1 VIEW 2020-08-08 07:16:[address] [facility] - PORTABLE/BEDSIDE [facility] BASIC METABOLIC PANEL (7) 2020-08-08 05:27:00 [facility] CBC W/PLT COUNT & AUTO 2020-08-08 05:27:00 [facility] XR CHEST 1 VIEW 2020-08-07 19:39:[address] [facility] es - PORTABLE/BEDSIDE [facility] POCT-GLUCOSE METER 2020-08-07 16:02:00 Kalina Rodrigez [facility] PACEMAKER GEN & LEADS - 2020-08-07 12:42:00 Desirae Ray [facility] - INSERTION W/ GENERAL [facility]aitlyn [facility] [address] [facility] ANESTHESIA (SING/DUAL/MULT) ECG 12-LEAD 2020-08-07 06:47:19 Unknown, Hl7 Doctor [facility] BASIC METABOLIC PANEL (7) 2020-08-07 03:57:00 [facility] PROTHROMBIN TIME/INR 2020-08-07 03:57:00 Kannan Mirza [facility] CBC W/PLT COUNT & AUTO 2020-08-07 03:57:00 Sabas Moralez [facility] CT BRAIN WITHOUT IV 2020-08-06 18:26:[address] [facility] POCT-GLUCOSE METER 2020-08-06 17:52:00 Kalina Rodrigez [facility] POCT-GLUCOSE METER 2020-08-06 12:09:00 [facility] ECG 12-LEAD 2020-08-06 12:00:34 Unknown, Hl7 Doctor [facility] ECHO W CONTRAST & DOPPLER 2020-08-06 08:42:00 Sabas Moralez [facility] BASIC METABOLIC PANEL (7) 2020-08-06 04:09:00 Gabriele Whatley [facility] MAGNESIUM 2020-08-06 04:09:00 Mary Ellen Montana [facility] CBC W/PLT COUNT & AUTO 2020-08-06 04:09:00 Sabas Moralez [facility] SARS-COV2/RT-PCR ([facility] & 2020-08-05 22:59:00 Hue Short rp [facility] - REF LABS) [facility] TROPONIN I 2020-08-05 19:10:00 Sabas Moralez [facility] BASIC METABOLIC PANEL (7) 2020-08-05 19:10:00 Wayne Marte [facility] BLOOD GAS, ARTERIAL 2020-08-05 19:10:00 Wayne Marte [facility] POCT-GLUCOSE METER 2020-08-05 18:33:00 Asif [facility] XR CHEST 1 VIEW 2020-08-05 14:37:00 Sabas Moralez [facility] PORTABLE/BEDSIDE Medical Center BLOOD GAS, ARTERIAL 2020-08-05 13:14:00 Sabas Moralez [facility] TROPONIN I 2020-08-05 13:13:00 Sabas Moralez [facility] COMPREHENSIVE METABOLIC 2020-08-05 13:13:00 Sabas Moralez [facility] B-TYPE NATRIURETIC FACTOR 2020-08-05 13:13:00 Sabas Moralez [facility] (BNP) [facility] VALPROIC ACID LEVEL, 2020-08-05 13:13:00 Sabas Moralez [facility] - TOTAL [facility] MAGNESIUM 2020-08-05 13:13:00 Wayne Marte [facility] CBC W/PLT COUNT & AUTO 2020-08-05 13:13:00 Sabas Moralez [facility] DIFFERENTIAL [facility] XR CHEST 1 VIEW 2020-08-05 12:43:00 Sabas Moralez [facility] - PORTABLE/BEDSIDE [facility] ECG 12-LEAD 2020-08-05 12:15:55 Unknown, Hl7 Doctor [facility] ARRYTHMIA IMPLANT REPORT 2020-08-05 00:00:00 Provider, Default C [facility] - - SCAN Scanning [facility] Plan of Care Planned Activity Planned Date Details Comments Source Future Scheduled 2020-06-26 INFLUENZA VACCINE [facility] - Test 00:00:00 (#1) [code = [facility] INFLUENZA VACCINE (#1)] Future Scheduled 2019-10-15 [facility]:00 (procedure) [code = [facility] 61754180] Future Scheduled 1955 Screening for [facility] St Reji es - Test 00:00:00 malignant neoplasm Medical C enter of colon (procedure) [code = 120096732] Results Test Description Test Time Test Comments Results Result Sourc e Comments ARRYTHMIA IMPLANT 2020-08-21 Ordered by an [facility] REPORT - SCAN 14:21:09 unspecified - Medical provider. [facility] Hemoglobin A1c 2020-08-10 09:54:00 Test Item Value Reference Range Interpretation Comme nts Hemoglobin A1C (test code = 4548-4) 6.2 % 4.3-6.1 H CHANDRIKA (test code = CHANDRIKA) Direct Marketing Coordinator ID - ADMIN Lab Interpretation (test code = 13848-8) Abnormal [facility] [id number] 09:54:00 Test Item Value Reference Range Interpretation Comments HEMOGLOBIN A1C (BEAKER) (test code = 6.2 % 4.3-6.1 H 368) Direct Marketing Coordinator ID - ADMINHEMOGLOBIN [id number] 09:45:00 Test Item Value Reference Range Interpretation Comments HEMOGLOBIN A1C (BEAKER) (test code = 6.1 % 4.3-6.1 368) Direct Marketing Coordinator ID - ADMINBasic metabolic [id number] 04:58:00 Test Item Value Reference Range Interpretation Comments Sodium (test code = 142 meq/L 388-302 3590-2) Potassium (test code = 4.0 meq/L 3.5-5.1 2823-3) Chloride (test code = 107 meq/L 98-107 2075-0) CO2 (test code = 27 meq/L 22-29 2028-9) BUN (test code = 23 mg/dL 7-21 H 3094-0) Creatinine (test code 1.35 mg/dL 0.57-1.25 H = 2160-0) Glucose (test code = 150 mg/dL 70-105 H 2345-7) Calcium (test code = 8.1 mg/dL 8.4-10.2 L 93994-6) EGFR (test code = 53 mL/min/1.73 [place] [address]-7) NOT ACCURATE CREATININE CLEARANCE IN PREDICTING GLOMERULAR FILTRATION RATE . ESTIMATED GFR I S NOT APPLICABLE FOR DIALYSIS PATIENTS. CHANDRIKA (test code = CHANDRIKA) Direct Marketing Coordinator ID - EDASI Lab Interpretation Abnormal (test code = 64207-3) [facility] CenterMagnesium2020-10-16 04:58:00 Test Item Value Reference Range Interpretation Comments Magnesium (test code = 1.7 mg/dL 1.6-2.6 07180-8) CHANDRIKA (test code = CHANDRIKA) Direct Marketing Coordinator ID - EDASI Lab Interpretation (test Normal code = 96584-5) [facility]OLIC [id number] 04:58:00 Test Item Value Reference Range Interpretation [...] S NOT APPLICABLE FOR DIALYSIS PATIEN TS. Direct Marketing Coordinator ID - [id number] 04:58:00 Test Item Value Reference Range Interpretation Comments MAGNESIUM (BEAKER) (test code = 1.7 mg/dL 1.6-2.6 627) Direct Marketing Coordinator ID - EDASICBC with platelet count + automated [id number] 04:36:00 Test Item Value Reference Range Interpretation [...] K/CU MM L MPV (test code = 68177-5) 10.9 fL 9.4-12.4 nRBC (test code = [...] 2801) Lab Interpretation (test code = Abnormal 33552-5) [facility] W/PLT COUNT & AUTO [id number] 04:36:00 Test Item Value Reference Range Interpretation [...] (BEAKER) (test code = 2801) BASIC METABOLIC [id number] 07:31:00 Test Item Value Reference Range Interpretation [...] S NOT APPLICABLE FOR DIALYSIS PATIEN TS. Direct Marketing Coordinator ID - DEMOND MCBC W/PLT COUNT & AUTO [id number] 07:21:00 Test Item Value Reference Range Interpretation [...] = 2801) RAD, CHEST, 1 VIEW, NON [id number] 08:26:00Reason for exam:->post-ppmShould this be performed at the bedside?->YesFINAL REPORT CLINICAL HISTORY: post-ppm TECHNIQUE: 1 view of the chest. COMPARISON: 08/07/2020 IMPRESSION: A left chest wall pacemaker is again seen without pneumothorax. There are no new infiltrates or significant effusions. Cardiomegaly is again noted. Signed: Michelle Tariq Verified Date/Time: 08/08/2020 08:26:51 Reading Location: [facility] Radiology Reading Room XR chest 1 view portable / [id number] 08:26:00Interface, External Ris In - 08/08/2020 8:29 AM CDTFINAL REPORT CLINICAL HISTORY: post-ppm TECHNIQUE: 1 view of the chest. COMPARISON: 08/07/2020 IMPRESSION: A left chest wall pacemaker is again seen without pneumothorax. There are no new infiltrates or significant effusions. Cardiomegaly is again noted. Signed: iMchelle Tariq Verified Date/Time: 08/08/2020 08:26:51 Reading Location: [facility] Radiology Reading Room [facility] [id number] 06:17:00 Test Item Value Reference Range Interpretation [...] S NOT APPLICABLE FOR DIALYSIS PATIEN TS. Direct Marketing Coordinator ID - DEMOND MCBC W/PLT COUNT & AUTO [id number] 05:59:00 Test Item Value Reference Range Interpretation [...] = 2801) RAD, CHEST, 1 VIEW, NON [id number] 20:04:00Reason for exam:->post ppmShould this be performed at the bedside?->YesFINAL REPORT AP view of the chest dated 08/07/2020 CLINICAL INFORMATION: post ppm Comment: Heart is normal in size. Thoracic aorta is ectatic. AICD is present. Pulmonary vasculature is unremarkable. Lungs are clear. No pulmonary infiltrate or pleural effusion is present. Impression: Ectatic thoracic aorta. Signed: Jame Duck[place]port Verified Date/Time: 08/07/2020 20:04:22Reading Location: [address] Consult Reading Room POC-Glucose [id number] 16:15:00 Test Item Value Reference Range Interpretation Comments POC-Glucose Meter (test 132 mg/dL 70-110 H : TE STED AT [facility] code = 1538) [address] [facility], 770 30: Direct Marketing Coordinator/Techni sara ID = [id number] for SALOMON FLORES Lab Interpretation (test Abnormal code = 52080-1) [facility]SE [id number] 16:15:00 Test Item Value Reference Range Interpretation Comments POC-GLUCOSE METER 132 mg/dL 70-110 H : TESTED A T [facility] 6720 (NE) (test code = ZARIA Franz [facility], 1538) [address]: Direct Marketing Coordinator/Techni sara ID = [id number] for SALOMON KRUSE ECG 12 [id number] 13:22:10Interface, External Ris In - 08/07/2020 1:22 PM CDTVentricular Rate 84 BPMAtrial Rate 84 BPMP-R Interval 220 msQRS Duration 98 msQ-T Interval 380 msQTC Calculation(Bazett) 449 msP [place] 64 degreesR [place] 55 degreesT [place] 61 degreesSinus rhythm with 1st degree A-V blockNonspecific ST and T wave abnormalityAbnormal ECGNo previous ECGs availableConfirmed by MD Silvia, Justino ([id number]) on 08/07/20201:22:08 [facility] [id number] 06:15:00 Test Item Value Reference Range Interpretation [...] S NOT APPLICABLE FOR DIALYSIS PATIEN TS. Direct Marketing Coordinator ID - PIAYA LSpecimen slightly ictericCBC W/PLT COUNT & AUTO [id number] 04:26:00 Test Item Value Reference Range Interpretation [...] PERCENT (BEAKER) (test code = 2801) Prothrombin time/[id number] 04:18:00 Test Item Value Reference Range Interpretation [...] valves. Lab Interpretation Abnormal (test code = 16549-4) [facility] CenterPROTHROMBIN TIME/[id number] 04:18:00 Test Item Value Reference Range Interpretation [...] is2.5-3.5 for patients wiht mechanical heart valves.POCT-GLUCOSE [id number] 21:14:00 Test Item Value Reference Range Interpretation Comments POC-GLUCOSE METER 138 mg/dL 70-110 H : TESTED A T [facility] 6720 (BEAKER) (test code = ZARIA Franz [facility], 1538) [address]: Direct Marketing Coordinator/Techni sara ID = [id number] for LUIS [place] CT, BRAIN, WITHOUT [id number] 18:41:00Unlisted Reason for Exam - Click Yes [...] Date/Time: 08/06/2020 18:41:07 CT brain without IV [id number] 18:41:00Interface, External Ris In - 08/06/2020 6:43 [...] Zahida Dobbs MDReport Verified Date/Time: 08/06/2020 18:41:07 [facility]2020-10-12 14:05:00 Test Item Value Reference Range Interpretation Comments MAGNESIUM (BEAKER) (test code = 1.8 mg/dL 1.6-2.6 627) Direct Marketing Coordinator ID - CAROLINA FECHO W CONTRAST & [id number] 13:55:02Ejection FractionSLEH ECHO HEARTLAB MKCKESSON CPACSInterface, External Ris In - 08/06/2020 1:55 PM CDTTransthoracic Echocardiography Report (TTE) Demographics Patient Name SHAREEEIS, Date of Study 08/06/2020 JAIRO Gender Male Visit Number [id number] Race Unknown Room Number C823 Number Date of 1955 Referring Physician Kalina Rodrigez MD Age 64 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(s) 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 Fact Sheet for Healthcare Providers:https://www.[employer]/sites/default/f sapna/product/documents/F act_Sheet_HC_Providers_L ncs_WYPE-EjP-8.pdf Fact Sheet for Healthcare Patients:https://www.[employer].Journal[employer] Online/sites/default/fi les/product/documents/Fa ct_Sheet_Patients_Lyra_S ARS-CoV-2.pdf Performing Laboratory:[facility] [place] [address] [facility] ([facility] & REF LABS)2020-08-06 13:22:00 Test Item Value Reference Range Interpretation Comments SARS-COV2/RT-PCR (test Negative Not Detected, Negative, code = 4763983) See external report for linked test SARS-COV-2 PERFORMING LAB [facility] NINA (test code = 5750881) Negative result for this test determines that [...] 564(g) of the Act.Fact Sheet for Healthcare Providers:https://www.[employer]/sites/default/files/product/documents/Fact_Shesada harrise_DK_Uooyinvsl_Fbsh_FHJF-NlN-1.pdfFact Sheet for Healthcare Patients:https://www.[employer]/sites/default/files/product/ documents/Vhkq_Iapxn_Fmqtrdmj_Ozgf_EFLW-WaN-0.pdfPerforming Laboratory:[facility], [place] [address]-ASSVLYZ METER 2020-08-06 12:21:00 Test Item Value Reference Range Interpretation Comments POC-GLUCOSE METER 180 mg/dL 70-110 H : TESTED A T [facility] 6720 (BEAKER) (test code = ZARIA Franz [facility], 1538) [address]: Direct Marketing Coordinator/Techni sara ID = [id number] for [place]IS [place] BASIC METABOLIC [id number] 05:00:00 Test Item Value Reference Range Interpretation [...] S NOT APPLICABLE FOR DIALYSIS PATIEN TS. Direct Marketing Coordinator ID - DEMOND MCBC W/PLT COUNT & AUTO [id number] 04:43:00 Test Item Value Reference Range Interpretation [...] PERCENT (BEAKER) (test code = 2801) Troponin [id number] 19:55:00 Test Item Value Reference Range Interpretation Comments Troponin I (test code = 0.02 ng/mL 0-0.03 36472-1) CHANDRIKA (test code = CHANDRIKA) Troponin I [...] RM Lab Interpretation (test Normal code = 30647-2) [facility] CenterTROPONIN [id number] 19:55:00 Test Item Value Reference Range Interpretation [...] failure, acidosis, acute neurological disease, and persistent tachyarrhythmia.Direct Marketing Coordinator ID - RMBASIC METABOLIC PANEL 2020-08-05 19:47:00 [...] S NOT APPLICABLE FOR DIALYSIS PATIEN TS. Direct Marketing Coordinator ID - RMBlood gas, [id number] 19:17:00 Test Item Value Reference Range Interpretation [...] 50 Lab Interpretation (test code = Abnormal 85516-5) [facility] CenterBLOOD GAS, [id number] 19:17:00 Test Item Value Reference Range Interpretation [...] FIO2 (BEAKER) (test code = 1819) 50.0 [id number] 19:11:00 Test Item Value Reference Range Interpretation Comments MAGNESIUM (BEAKER) 2.1 mg/dL 1.6-2.6 Specimen slightly (test code = 627) hemolyzed Direct Marketing Coordinator ID - RMPOCT-GLUCOSE [id number] 18:45:00 Test Item Value Reference Range Interpretation Comments POC-GLUCOSE METER 133 mg/dL 70-110 H : TESTED A T [facility] 6720 (BEAKER) (test code = [place], 1538) [address]: Direct Marketing Coordinator/Techni sara ID = [id number] for LUIS [place] RAD, CHEST, 1 VIEW, NON [id number] 18:01:00Reason for exam:->post TVP placementShould this be [...] RM Lab Interpretation (test Abnormal code = 76318-9) [facility] CenterVALPROIC ACID LEVEL, [id number] 14:05:00 Test Item Value Reference Range Interpretation Comments VALPROIC ACID TOTAL (BEAKER) (test 30 ug/mL 50-100 L code = 924) Therapeutic range for some clinical conditions may be >100 ug/mLOperator ID - RMComprehensive metabolic [id number] 14:03:00 Test Item Value Reference Range Interpretation Comments Protein, Total (test 7.6 6.0- 8.3 gm/dL Speci men slightly code = 2885-2) hemolyzed Albumin (test code = 3.8 g/dL 3.5-5 Specime n slightly 75213-2) hemolyzed Alkaline Phosphatase 104 U/L 40-150 (test code = 6768-6) Total Bilirubin (test 1.1 mg/dL 0.2-1.2 Specim en slightly code = 1974-2) hemolyzed Sodium (test code = 139 meq/L 068-228 0162-2) Potassium (test code = 6.3 meq/L 3.5-5.1 [...] Calcium (test code = 8.6 mg/dL 8.4-10.2 69230-0) AST (test code = 40 U/L 5-34 H Specimen sl ightly 1920-8) hemolyzed ALT (test code = 83 U/L 6-55 H Specimen sl ightly 1742-6) hemolyzed EGFR (test code = 40 mL/min/1.73 [place] [address]-1) NOT ACCURATE CREATININE CLEARANCE IN PREDICTING GLOMERULAR FILTRATION RATE . ESTIMATED GFR I S NOT APPLICABLE FOR DIALYSIS PATIENTS. CHANDRIKA (test code = CHANDRIKA) Direct Marketing Coordinator ID - ROSMAHING Lab Interpretation Abnormal (test code = 76637-3) [facility] CenterCOMPREHENSIVE METABOLIC [id number] 14:03:00 Test Item Value Reference Range Interpretation [...] S NOT APPLICABLE FOR DIALYSIS PATIEN TS. Direct Marketing Coordinator ID - DAYAGB-type Natriuretic Factor (BNP)2020-08-05 13:59:00 Test Item Value Reference Range Interpretation Comments BNP (test code = 21250-5) 29 pg/mL 0-100 CHANDRIKA (test code = CHANDRIKA) Direct Marketing Coordinator ID - ROSMAHING Lab Interpretation (test Normal code = 03657-4) [facility] CenterTROPONIN [id number] 13:59:00 Test Item Value Reference Range Interpretation [...] failure, acidosis, acute neurological disease, and persistent tachyarrhythmia.Direct Marketing Coordinator ID - KORIN-TYPE NATRIURETIC FACTOR (BNP)2020-08-05 13:59:00 Test Item Value Reference Range Interpretation Comments B-TYPE NATRIURETIC PEPTIDE (BEAKER) 29 pg/mL 0-100 (test code = 700) Direct Marketing Coordinator ID - KORINLOOD GAS, [id number] 13:29:00 Test Item Value Reference Range Interpretation [...] 1819) 100.0 CBC W/PLT COUNT & AUTO [id number] 13:29:00 Test Item Value Reference Range Interpretation [...] = 2801) RAD, CHEST, 1 VIEW, NON [id number] 13:12:00Reason for exam:- >intubationShould this be performed [...] MDReport Verified Date/Time: 08/05/2020 13:12:04 Reading Location: [facility] B1 C013T Transitional Reading Room 01:12 PM
[2020-09-21] MEDS ORDERED: NA CHLORIDE 0.9% 2,000 ML ONE (12:14)
[2020-09-21 12:21] LABS: Absolute Lymphocytes (CBC) 0.5 K/uL (0.7-4.9); Basophils % 0.5 % (0-1.3); Hematocrit 29.8 % (39.6-49.0); Lymphocytes % 5.1 % (15.3-44.8); MPV 8.2 fL (7.6-11.3); RBC Red Blood Cell Count 3.51 M/uL (4.33-5.43)
[2020-09-21] MEDS ORDERED: CEFTRIAXONE/SWI 1gm 1 GM/10 ML SYR ONE (12:22)
[2020-09-21] MEDS ORDERED: ACETAMINOPHEN 325 MG TABLET ONE (12:22)
[2020-09-21 12:31] LABS: Protime INR 1.17
[2020-09-21 12:46] LABS: ALT/SGPT 75 U/L (12-78); AST/SGOT 77 U/L (15-37); Albumin 2.4 g/dL (3.4-5.0); Alkaline Phosphatase 115 U/L (45-117); Amylase 33 U/L (25-115); BUN Blood Urea Nitrogen 15 mg/dL (7-18); Bicarbonate 25 mmol/L (21-32); Bilirubin Direct 0.3 mg/dL (0-0.2); CKMB Creatine Kinase MB < 1.0 ng/mL (0.3-3.6); Creatine Phosphokinase 94 U/L (39-308); Glucose Level 155 mg/dL (74-106); Lipase 82 U/L (73-393); Protein, Total 7.4 g/dL (6.4-8.2); Sodium Level 134 mmol/L (136-145); Troponin (Emerg Dept Use Only) < 0.02 ng/mL (0.0-0.045)
[2020-09-21 13:36] LABS: White Blood Cell Scan OK (OK)
[2020-09-21 13:37] LABS: Urine Blood 2+ (NEG); Urine Glucose NEGATIVE (NEG); Urine Protein 2+ (NEG); Urine pH 5.5 (5.0-7.0)
[2020-09-21 13:37] LABS: Blood Morphology Comment NOT SEEN (NOT SEEN); Platelet Estimate ADEQ
--- NOTE | 2020-09-21 13:43 | RAD REPORT ---
EXAM DESCRIPTION: Hoa Single View09/21/2020 1:16 pm CLINICAL HISTORY: Sepsis COMPARISON: September 20, 2020 FINDINGS: The lungs appear clear of acute infiltrate. The heart is mildly enlarged. Pacemaker leads are in place. IMPRESSION: No acute abnormalities displayed
--- NOTE | 2020-09-21 13:52 | EDPHYS ---
Physician Documentation [facility] Name: Raphael Hoyos Age: 64 yrs Sex: Male : 1955 Arrival Date: 09/21/2020 Time: 11:54 Bed 8 Private MD: ED Physician Fish Cartagena HPI: 09/21 13:48 This 64 yrs old Male presents to ER via EMS with complaints of hypotension. ma2 13:48 sent here from alf for hypotension 70/30, and fever 102, he has uti was ma2 discharged from our hospital yesterday.. patient states he has lower abdominal pain for months and feels sick, no new complaint . Onset: The symptoms/episode began/occurred gradually, 1 day(s) ago. Severity of symptoms: At their worst the symptoms were severe in the emergency department the symptoms are unchanged. The patient has not experienced similar symptoms in the past, The patient has experienced similar episodes in the past. Historical: - Allergies: 12:33 NKA; ec1 - Home Meds: 12:33 aspirin 81 mg Oral chew 1 tab once daily [Active]; Colace 100 mg Oral cap 1 cap once ec1 daily [Active]; divalproex 250 mg Oral Tb24 once daily [Active]; hydralazine 25 mg Oral tab 1 tab 2 time per day, PRN [Active]; Lipitor 40 mg Oral tab 1 tab once daily [Active]; lisinopril 20 mg Oral tab 1 tab once daily [Active]; melatonin 5 mg Oral cap daily [Active]; metoprolol tartrate 50 mg Oral tab 1 tab 2 times per day [Active]; nifedipine 60 mg Oral tr24 1 tab twice a day [Active]; omeprazole 20 mg Oral cpDR 1 cap once daily [Active]; oxybutynin chloride 5 mg Oral tab 1 tab 3 times per day [Active]; Tradjenta 5 mg Oral tab 1 tab once daily [Active]; tramadol 50 mg Oral tab 1 tab twice a day [Active]; - PMHx: 12:33 CVA; Diabetes - IDDM; GERD; Hypertension; TIA; ec1 - Immunization history:: Last tetanus immunization: unknown. - Social history:: Patient/guardian denies using alcohol, street drugs, The patient lives with family, Smoking status: Patient reports the use of cigarette tobacco products, smokes one-half pack cigarettes per day. - Family history:: not pertinent. ROS: 13:48 Constitutional: Negative for fever, chills, and weight loss. ma2 13:48 All other systems are negative. Exam: 13:48 Constitutional: This is a well developed, well nourished patient who is awake, alert, ma2 and in no acute distress. Head/Face: Normocephalic, atraumatic. Eyes: Pupils equal round and reactive to light, extra-ocular motions intact. Lids and lashes normal. Conjunctiva and sclera are non-icteric and not injected. Cornea within normal limits. Periorbital areas with no swelling, redness, or edema. ENT: Nares patent. No nasal discharge, no septal abnormalities noted. Tympanic membranes are normal and external auditory canals are clear. Oropharynx with no redness, swelling, or masses, exudates, or evidence of obstruction, uvula midline. Mucous membranes moist. Neck: Trachea midline, no thyromegaly or masses palpated, and no cervical lymphadenopathy. Supple, full range of motion without nuchal rigidity, or vertebral point tenderness. No Meningismus. Chest/axilla: Normal chest wall appearance and motion. Nontender with no deformity. No lesions are appreciated. Cardiovascular: Regular rate and rhythm with a normal S1 and S2. No gallops, murmurs, or rubs. Normal PMI, no JVD. No pulse deficits. Respiratory: Lungs have equal breath sounds bilaterally, clear to auscultation and percussion. No rales, rhonchi or wheezes noted. No increased work of breathing, no retractions or nasal flaring. Abdomen/GI: Soft, non-tender, with normal bowel sounds. No distension or tympany. No guarding or rebound. No evidence of tenderness throughout. Back: No spinal tenderness. No costovertebral tenderness. Full range of motion. Skin: Warm, dry with normal turgor. Normal color with no rashes, no lesions, and no evidence of cellulitis. MS/ Extremity: Pulses equal, no cyanosis. Neurovascular intact. Full, normal range of motion. Neuro: Awake and alert, GCS 15, oriented to person, place, time, and situation. Cranial nerves II-XII grossly intact. Motor strength 5/5 in all extremities. Sensory grossly intact. Cerebellar exam normal. Normal gait. Vital Signs: 11:54 BP 69 / 32; Pulse 77; Resp 08 S; Temp 101.9(O); Pulse Ox 97% on R/A; Weight 122.47 kg ec1 (R); Height 5 ft. 9 in. (175.26 cm) (R); Pain 7/10; 12:30 BP 104 / 55; ec1 13:00 BP 91 / 41; Pulse 65; Resp 18 S; Pulse Ox 97% on R/A; ec1 13:30 BP 118 / 63; Pulse 60; Resp 18; Temp 99.4(O); Pulse Ox 97% on R/A; ec1 14:00 BP 125 / 66; Pulse 59; Resp 18 S; Pulse Ox 97% on R/A; ec1 16:33 BP 159 / 79; Pulse 60; Resp 12 S; Pulse Ox 98% on R/A; ec1 11:54 Body Mass Index 39.87 (122.47 kg, 175.26 cm) ec1 MDM: 11:59 Patient medically screened. [facility] 13:48 Differential Diagnosis altered mental status, sepsis, uti. Data reviewed: vital signs, ma2 nurses notes. Counseling: I had a detailed discussion with the patient and/or guardian regarding: the historical points, exam findings, and any diagnostic results supporting the discharge/admit diagnosis, the presence of at least one elevated blood pressure reading (>120/80) during this emergency department visit, the need for further work-up and treatment in the hospital. Response to treatment: the patient's symptoms have markedly improved after treatment. 09/21 11:58 Order name: Amylase, Serum; Complete Time: 13:44 [facility] 09/21 11:58 Order name: Basic Metabolic Panel; Complete Time: 13:44 [facility] 09/21 11:58 Order name: Blood Culture Adult (2) [facility] 09/21 11:58 Order name: CBC with Diff; Complete Time: 13:44 [facility] 09/21 11:58 Order name: Ckmb; Complete Time: 13:44 [facility] 09/21 11:58 Order name: CPK; Complete Time: 13:44 [facility] 09/21 11:58 Order name: Lactate; Complete Time: 13:44 [facility] 09/21 11:58 Order name: LFT's; Complete Time: 13:44 [facility] 09/21 11:58 Order name: Lipase; Complete Time: 13:44 [facility] 09/21 11:58 Order name: Procalcitonin; Complete Time: 13:44 [facility] 09/21 11:58 Order name: Protime (+inr); Complete Time: 13:44 [facility] 09/21 11:58 Order name: Ptt, Activated; Complete Time: 13:44 [facility] 09/21 11:58 Order name: Troponin (emerg Dept Use Only); Complete Time: 13:44 [facility] 09/21 11:58 Order name: Urine Microscopic Only [facility] 09/21 11:58 Order name: Chest Single View XRAY; Complete Time: 22:11 [facility] 09/21 11:58 Order name: Accucheck; Complete Time: 12:46 [facility] 09/21 11:58 Order name: Cardiac monitoring; Complete Time: 12:26 [facility] 09/21 11:58 Order name: EKG - Nurse/Tech; Complete Time: 12:27 [facility] 09/21 11:58 Order name: IV Saline Lock - Large Bore; Complete Time: 12:27 [facility] 09/21 11:58 Order name: Labs collected and sent; Complete Time: 12:27 [facility] 09/21 11:58 Order name: O2 Per Protocol; Complete Time: 12:54 [facility] 09/21 12:55 Order name: Urine Dipstick--Ancillary (enter results); Complete Time: 13:44 09/21 12:58 Order name: Glucose, Ancillary Testing; Complete Time: 13:44 [facility] 09/21 13:36 Order name: CBC Smear Scan; Complete Time: 13:44 [facility] 09/21 14:57 Order name: COVID-19 09/21 16:36 Order name: CT; Complete Time: 22:11 [facility] 09/21 16:41 Order name: SARS-COV-2 RT PCR; Complete Time: 22:11 [facility] 09/21 11:58 Order name: O2 Sat Monitoring; Complete Time: 12:54 [facility] 09/21 11:58 Order name: Urine Dipstick-Ancillary (obtain specimen); Complete Time: 12:54 [facility] Administered Medications: 12:05 Drug: NS 0.9% (30 ml/kg) 30 ml/kg Route: IV; Rate: bolus; Site: right antecubital; ec1 12:12 Drug: Acetaminophen 650 mg Route: PO; hb 13:00 Follow up: Response: Temperature is decreased ec1 14:19 Follow up: Response: Temperature is decreased ec1 12:27 Drug: Rocephin - (cefTRIAXone) 1 grams Route: IVPB; Infused Over: 30 mins; Site: right ec1 antecubital; 13:20 Follow up: Response: No adverse reaction ec1 Disposition: 09/21/20 13:51 Hospitalization ordered by Kash Douglas for Inpatient Admission. Preliminary diagnosis are Severe sepsis without septic shock, Cystitis, unspecified without hematuria. - Bed requested for Telemetry/MedSurg (Inpatient). - Status is Inpatient Admission. ec1 - Condition is Stable. - Problem is new. - Symptoms are unchanged. Signatures: Dispatcher [employer] EDMS Hao Meyers PA PA jmm Roszak, Josh, PA PA [id number] Suellen Guo RN RN Fish Cartagean MD MD [facility] Amaris Francisco Emily, RADHAMES RN ec1 Corrections: (The following items were deleted from the chart) 15:29 13:51 Hospitalization Ordered by Kash Douglas MD for Inpatient Admission. Preliminary eb diagnosis is Severe sepsis without septic shock; Cystitis, unspecified without hematuria. Bed requested for Telemetry/MedSurg (Inpatient). Status is Inpatient Admission. Condition is Stable. Problem is new. Symptoms are unchanged. ma2 17:03 15:29 09/21/2020 13:51 Hospitalization Ordered by Kash Douglas MD for Inpatient ec1 Admission. Preliminary diagnosis is Severe sepsis without septic shock; Cystitis, unspecified without hematuria. Bed requested for Telemetry/MedSurg (Inpatient). Status is Inpatient Admission. Condition is Stable. Problem is new. Symptoms are unchanged. eb
--- NOTE | 2020-09-21 13:52 | ER ---
Nurse's Notes [facility] Name: Raphael Hoyos Age: 64 yrs Sex: Male : 1955 Arrival Date: 09/21/2020 Time: 11:54 Bed 8 Private MD: Diagnosis: Severe sepsis without septic shock;Cystitis, unspecified without hematuria Presentation: 09/21 11:54 Chief complaint: EMS states: Pt was here yesterday for UTI and sent home. He has a ec1 fever of 101 [facility]. Coronavirus screen: Client denies travel out of the [place] in the last 14 days. Ebola Screen: Patient negative for fever greater than or equal to 101.5 degrees Fahrenheit, and additional compatible Ebola Virus Disease symptoms. Initial Sepsis Screen: Does the patient meet any 2 criteria? Temp <36.0*C (96.8*F)) or > 38.3*C (100.9*F). Systolic BP < 90 mmHg. Does the patient have a suspected source of infection? Yes: Dysuria/Frequency/Urgency/UTI. 11:54 Method Of Arrival: EMS: [facility] ec1 11:54 Acuity: DANIELA 2 ec1 12:57 Risk Assessment: Do you want to hurt yourself or someone else? Patient reports no ec1 desire to harm self or others. Onset of symptoms was September 21, 2020. Historical: - Allergies: 12:33 NKA; ec1 - Home Meds: 12:33 aspirin 81 mg Oral chew 1 tab once daily [Active]; Colace 100 mg Oral cap 1 cap once ec1 daily [Active]; divalproex 250 mg Oral Tb24 once daily [Active]; hydralazine 25 mg Oral tab 1 tab 2 time per day, PRN [Active]; Lipitor 40 mg Oral tab 1 tab once daily [Active]; lisinopril 20 mg Oral tab 1 tab once daily [Active]; melatonin 5 mg Oral cap daily [Active]; metoprolol tartrate 50 mg Oral tab 1 tab 2 times per day [Active]; nifedipine 60 mg Oral tr24 1 tab twice a day [Active]; omeprazole 20 mg Oral cpDR 1 cap once daily [Active]; oxybutynin chloride 5 mg Oral tab 1 tab 3 times per day [Active]; Tradjenta 5 mg Oral tab 1 tab once daily [Active]; tramadol 50 mg Oral tab 1 tab twice a day [Active]; - PMHx: 12:33 CVA; Diabetes - IDDM; GERD; Hypertension; TIA; ec1 - Immunization history:: Last tetanus immunization: unknown. - Social history:: Patient/guardian denies using alcohol, street drugs, The patient lives with family, Smoking status: Patient reports the use of cigarette tobacco products, smokes one-half pack cigarettes per day. - Family history:: not pertinent. Screenin:54 Abuse screen: Denies threats or abuse. Denies injuries from another. Nutritional ec1 screening: No deficits noted. Tuberculosis screening: No symptoms or risk factors identified. Fall Risk Fall in past 12 months (25 points). Secondary diagnosis (15 points) TIA, impaired mobility, IV access (20 points). Ambulatory Aid- None/Bed Rest/Nurse Assist (0 pts). Gait- Normal/Bed Rest/Wheelchair (0 pts) Mental Status- Oriented to own ability (0 pts). Total [place] Fall Scale indicates High Risk Score (45 or more points). Fall prevention measures have been instituted. Side Rails Up X 2 As available patient and family educated on Fall Prevention Program and Strategies. Assessment: 12:28 General: Appears in no apparent distress. uncomfortable, Behavior is cooperative, ec1 agitated. Pain: Complains of pain in abdomen. Neuro: Level of Consciousness is awake, alert, obeys commands, Oriented to person, place, time, situation. Cardiovascular: pt appears pale. Respiratory: Airway is patent Respiratory effort is unlabored, Respiratory pattern is tachypnea. GI: Abdomen is round obese. : Parikh in place. EENT: No deficits noted. Derm: No deficits noted. Musculoskeletal: pt is generally weak, requires assistance turning in bed. 12:46 Reassessment: Patient appears in no apparent distress at this time. ec1 13:38 Reassessment: Patient appears in no apparent distress at this time. No changes from ec1 previously documented assessment. Patient and/or family updated on plan of care and expected duration. Pain level reassessed. 14:18 Reassessment: Patient appears in no apparent distress at this time. No changes from ec1 previously documented assessment. Patient and/or family updated on plan of care and expected duration. Pain level reassessed. 16:17 Reassessment: Patient appears in no apparent distress at this time. pt resting in bed. ec1 eyes closed. respirations unlabored. 1500 ml urine emptied from parikh.. 16:43 Reassessment: Patient appears in no apparent distress at this time. No changes from ec1 previously documented assessment. Patient and/or family updated on plan of care and expected duration. Pain level reassessed. Vital Signs: 11:54 BP 69 / 32; Pulse 77; Resp 08 S; Temp 101.9(O); Pulse Ox 97% on R/A; Weight 122.47 kg ec1 (R); Height 5 ft. 9 in. (175.26 cm) (R); Pain 7/10; 12:30 BP 104 / 55; ec1 13:00 BP 91 / 41; Pulse 65; Resp 18 S; Pulse Ox 97% on R/A; ec1 13:30 BP 118 / 63; Pulse 60; Resp 18; Temp 99.4(O); Pulse Ox 97% on R/A; ec1 14:00 BP 125 / 66; Pulse 59; Resp 18 S; Pulse Ox 97% on R/A; ec1 16:33 BP 159 / 79; Pulse 60; Resp 12 S; Pulse Ox 98% on R/A; ec1 11:54 Body Mass Index 39.87 (122.47 kg, 175.26 cm) ec1 ED Course: 11:54 Patient arrived in ED. ec1 11:56 Triage completed. ec1 11:59 Hao Meyers PA is PHCP. [facility] 11:59 Fish Cartagena MD is Attending Physician. [facility] 12:04 Lily Lopez, RADHAMES is Primary Nurse. ec1 12:04 Inserted saline lock: 18 gauge in right antecubital area, using aseptic technique. ec1 Blood collected. 12:17 Inserted saline lock: 20 gauge in left hand, using aseptic technique. ec1 12:54 Patient has correct armband on for positive identification. Placed in gown. Side rails ec1 up X2. 13:16 Chest Single View XRAY In Process Unspecified. EDMS 13:40 Notified ED physician of a critical lab result(s). Potassium of 3.0. ec1 13:51 Kash Douglas MD is Hospitalizing Provider. ma2 16:04 Patient moved back from [place]. ec1 16:57 Report given to VENECIA Castellon RN in [facility]. ec1 Administered Medications: 12:05 Drug: NS 0.9% (30 ml/kg) 30 ml/kg Route: IV; Rate: bolus; Site: right antecubital; ec1 12:12 Drug: Acetaminophen 650 mg Route: PO; hb 13:00 Follow up: Response: Temperature is decreased ec1 14:19 Follow up: Response: Temperature is decreased ec1 12:27 Drug: Rocephin - (cefTRIAXone) 1 grams Route: IVPB; Infused Over: 30 mins; Site: right ec1 antecubital; 13:20 Follow up: Response: No adverse reaction ec1 Outcome: 13:51 Decision to Hospitalize by Provider. ma2 17:03 Patient left the ED. ec1 Signatures: Dispatcher [employer] EDMS Hao Meyers PA PA jmm Baxter, Heather, RN RN Fish Cartagena MD MD [facility] Lily Lopez RN RN ec1 Corrections: (The following items were deleted from the chart) 13:33 13:00 BP 91 / 41; Pulse 65bpm; Resp 18bpm; Spontaneous; Pulse Ox 97% RA; ec1 ec1
[2020-09-21] MEDS ORDERED: NA CHLORIDE 0.9% 1,000 ML ONE ×2 (13:56→17:49)
[2020-09-21] MEDS ORDERED: NA CHLORIDE 0.9% 500 ML ONE (13:57)
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
--- NOTE | 2020-09-21 16:36 | RAD REPORT ---
EXAM DESCRIPTION: CT - Abdomen Pelvis Wo Contrast - 09/21/2020 3:58 pm CLINICAL HISTORY: Abdominal pain COMPARISON: 2018 TECHNIQUE: Computed axial tomography of the abdomen and pelvis was obtained. IV and oral contrast we re not requested. All CT scans are performed using dose optimization technique as appropriate and may include automated exposure control or mA/KV adjustment according to patient size. FINDINGS: The evaluation of solid organs, vessels and bowel is limited secondary to the lack of con trast administration. The liver, spleen, pancreas, adrenals and left kidney appear grossly normal. Mild right hydronephrosis. Portions of the right ureter are mildly dilated. A genitourinary calculus is not seen. A Wang catheter is present within the bladder. The bladder wall is thickened. A small r ight renal cyst The rectum is mildly distended with stool. Normal appendix. There is no evidence diverticulitis IMPRESSION: Mild right hydronephrosis. Portions of the right ureter are mildly dilated. A genitourin pedro calculus is not seen Mild bladder wall thickening may be secondary to a cystitis
[2020-09-21] MEDS: INSULIN -REGULAR HUMAN 50 UNIT/0.5 ML ML SQ SCH ×2 (17:27→20:20)
[2020-09-21 17:46] VITALS: BMI 37.9
[2020-09-21] MEDS ORDERED: POTASSIUM CL SA 10 MEQ TAB PO ONE (17:49)
[2020-09-21] MEDS: POTASSIUM CL SA 10 MEQ TAB PO ONE ×2 (17:53→17:54)
[2020-09-21] MEDS: NA CHLORIDE 0.9% 1,000 ML IV SCH (17:54)
[2020-09-21] MEDS ORDERED: ACETAMINOPHEN 500 MG TAB PO PRN (18:37)
[2020-09-21] MEDS ORDERED: PIPER/TAZO/NS 3.375gm 3.375 GM/100 ML BAG IVPB SCH (18:45)
[2020-09-21] MEDS ORDERED: PIPER/TAZO/NS 3.375gm 6.750 GM/200 ML BAG ONE (20:03)
--- NOTE | 2020-09-21 22:13 | P.INFCA ---
Sepsis Focused Assessment - Focused Assessment Complete? Sepsis Focused Assessment Completed?: Yes - Sepsis Screen Result Severe Sepsis: Positive Septic Shock: Positive - Evaluation Current stage of sepsis: Severe sepsis - Vital Signs Reviewed: Yes Temperature: 97.9 F Heart rate: 66 Blood Pressure: 167/84 Respiratory Rate: 17 O2 Sat by Pulse Oximetry: 98 - Examination Date exam was performed: 09/21/20 Time exam was performed: 20:00 Heart: Regular rate/rhythm Lungs: Clear bilaterally Peripheral pulses: 2+ Slightly diminished Peripheral pulse location: Radial Capillary refill: <2 Seconds Skin examination: Normal turgor Comments: Improved VS
[2020-09-22] MEDS: PIPER/TAZO/NS 3.375gm 3.375 GM/100 ML BAG IVPB SCH ×2 (05:33→12:00)
[2020-09-22 06:06] LABS: Absolute Lymphocytes (CBC) 0.3 K/uL (0.7-4.9); Basophils % 0.6 % (0-1.3); Hematocrit 24.6 % (39.6-49.0); Lymphocytes % 6.3 % (15.3-44.8); MPV 7.9 fL (7.6-11.3); RBC Red Blood Cell Count 2.93 M/uL (4.33-5.43)
[2020-09-22 06:30] LABS: Magnesium 1.5 mg/dL (1.8-2.4); Potassium 3.3 mmol/L (3.5-5.1)
[2020-09-22] MEDS: INSULIN -REGULAR HUMAN 50 UNIT/0.5 ML ML SQ SCH ×4 (07:30→20:49)
[2020-09-22] MEDS ORDERED: Magnesium Sulfate 2gm IVPB 2 G/50 ML BAG IV ONE (08:00)
[2020-09-22] MEDS ORDERED: POTASSIUM 25 MEQ EFFERV TAB PO ONE (08:00)
[2020-09-22] MEDS ORDERED: CEFTRIAXONE 1 GM/NS 50 ML 1 GM/50 ML BAG IV SCH (09:00)
[2020-09-22] MEDS: ENOXAPARIN 40 MG/0.4 ML SQ SCH (09:06)
[2020-09-22] MEDS: NA CHLORIDE 0.9% 1,000 ML IV SCH ×2 (09:07→13:27)
[2020-09-22] MEDS ORDERED: CEFTRIAXONE/SWI 1gm 1 GM/10 ML SYR IV SCH (12:00)
[2020-09-22] MEDS: DIVALPROEX ER 250 MG TAB PO SCH ×2 (12:06→20:50)
[2020-09-22] MEDS: OXYBUTYNIN CHLORIDE 5 MG TAB PO SCH ×2 (13:59→20:50)
--- NOTE | 2020-09-22 15:35 | P.PN ---
Subjective Date of Service: 09/22/20 Chief Complaint: Severe sepsis secondary to UTI Subjective: No new changes (Reports feeling about the same, answers with short yes/no or I do not know.) Review of Systems 10-point ROS is otherwise unremarkable Physical Examination - Vital Signs Temperature: 98.3 F Blood Pressure: 147/67 Pulse: 62 Respirations: 18 Pulse Ox (%): 96 - Physical Exam General: Alert, In no apparent distress, Oriented x3 HEENT: Sclerae nonicteric Respiratory: Clear to auscultation bilaterally, Normal air movement Cardiovascular: Regular rate/rhythm Gastrointestinal: Soft and benign, No tenderness Musculoskeletal: No tenderness Integumentary: No rashes Neurological: Normal speech, Normal affect Urinary: Wang catheter Assessment & Plan Physician Review Additional Text: Severe sepsis secondary to the UTI likely catheter-related Wang catheter - ?h/o urinary retention GARY, prerenal azotemia Hypertension DM2 GERD 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 coli, switched to meropenem -does have some hematuria who on UA, review of EMR reveals this is chronic -GARY resolved with IVF -spoke with long-term, patient has had catheter since 09/12, placed here due to urinary retention. No change of the catheter has been made, and he has not followed up with urology. -repeat CT abdomen/pelvis was unchanged mild right hydronephrosis and hydroureter -discussed with urology over the phone, Dr. Ortiz, given the improvement of renal function, no urgent/emergent procedure needed at this time. He will need to follow up with Dr. Ortiz within the next 2 weeks for repeat ultrasound +/- voiding trial, preferably while he is still on antibiotics. Wang catheter to be changed after at least 2-3 days of culture specific antibiotic treatment, but at least 1-2 days before the course of therapy is completed. -restart home medications Dispo: likely discharge back to long-term in ~48-72 hrs pending improvement of symptoms Time Spent Managing Pts Care (In Minutes): 35
[2020-09-22 15:57] LABS: Magnesium 2.1 mg/dL (1.8-2.4); Potassium 3.5 mmol/L (3.5-5.1)
[2020-09-22] MEDS: Meropenem 1,000 MG in NA CHLORIDE 0.9% 100 ML IV SCH (16:50)
[2020-09-22] MEDS ORDERED: Meropenem 1000 MG/VIAL IV SCH (17:00)
[2020-09-22] MEDS ORDERED: POTASSIUM CL SA 10 MEQ TAB PO ONE (17:00)
[2020-09-22] MEDS: ATORVASTATIN 40 MG TAB PO SCH (20:50)
[2020-09-22] MEDS: TRAMADOL HCL 50 MG TAB PO PRN (20:50)
[2020-09-22] MEDS: MELATONIN 5 MG TABLET PO SCH (20:51)
[2020-09-23] MEDS: Meropenem 1,000 MG in NA CHLORIDE 0.9% 100 ML IV SCH ×3 (00:10→17:11)
[2020-09-23] MEDS ORDERED: ONDANSETRON 4 MG/2 ML VIAL IV ONE (04:25)
[2020-09-23 06:03] LABS: Absolute Lymphocytes (CBC) 0.5 K/uL (0.7-4.9); Hematocrit 23.9 % (39.6-49.0); Lymphocytes % 16.4 % (15.3-44.8); MPV 8.5 fL (7.6-11.3); RBC Red Blood Cell Count 2.82 M/uL (4.33-5.43)
[2020-09-23 06:18] LABS: Magnesium 1.9 mg/dL (1.8-2.4); Potassium 3.1 mmol/L (3.5-5.1)
[2020-09-23] MEDS: PANTOPRAZOLE 40MG TABLET PO SCH (06:52)
[2020-09-23] MEDS: INSULIN -REGULAR HUMAN 50 UNIT/0.5 ML ML SQ SCH ×4 (07:30→21:00)
[2020-09-23] MEDS: ENOXAPARIN 40 MG/0.4 ML SQ SCH (08:53)
[2020-09-23] MEDS: ASPIRIN EC 81 MG TAB PO SCH (08:53)
[2020-09-23] MEDS: DOCUSATE NA 100 MG CAP PO SCH (08:53)
[2020-09-23] MEDS ORDERED: HOME MED 1 EA UNK (Omeprazole [Omeprazole] 20 MG) PO SCH (09:00)
[2020-09-23] MEDS: POTASSIUM 25 MEQ EFFERV TAB PO SCH ×2 (09:00→09:02)
[2020-09-23] MEDS: DIVALPROEX ER 250 MG TAB PO SCH ×2 (09:02→21:22)
[2020-09-23] MEDS: OXYBUTYNIN CHLORIDE 5 MG TAB PO SCH ×3 (09:02→21:22)
[2020-09-23] MEDS: POTASSIUM CL SA 10 MEQ TAB PO ONE ×2 (09:10→09:39)
--- NOTE | 2020-09-23 13:03 | P.PN ---
Subjective Date of Service: 09/23/20 Chief Complaint: Severe sepsis secondary to UTI Subjective: Improving (Patient reports feeling "okay", reports no big changes, feels like he "always does". Did not want to answer any more questions and wanted to go back to sleep) Review of Systems 10-point ROS is otherwise unremarkable Physical Examination - Vital Signs Temperature: 98.6 F Blood Pressure: 117/58 Pulse: 89 Respirations: 17 Pulse Ox (%): 94 - Physical Exam General: Alert, In no apparent distress, Oriented x3, Obese, Other (Answering with short questions, wants to go back to sleep) Respiratory: Clear to auscultation bilaterally Cardiovascular: Regular rate/rhythm Gastrointestinal: Soft and benign, No tenderness Musculoskeletal: No tenderness Integumentary: No rashes Neurological: Normal speech, Normal affect Urinary: Wang catheter (With dark yellow-brown urine) Assessment & Plan Physician Review Additional Text: Severe sepsis secondary to the UTI likely catheter-related Wang catheter - ?h/o urinary retention GARY, prerenal azotemia Hypertension DM2 GERD 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 coli, switched to meropenem. Pro calcitonin improved -does have some hematuria who on UA, review of EMR reveals this is chronic -GARY resolved with IVF, and IVF discontinued on 09/22 -Wang catheter placed on 09/12 due to urinary retention. [facility] reports no change of the catheter has been made since then and patient has not followed up with urology -repeat CT abdomen/pelvis was unchanged mild right hydronephrosis and hydroureter -discussed with urology over the phone, Dr. Ortiz, given the improvement of renal function, no urgent/emergent procedure needed at this time. He will need to follow up with Dr. Ortiz within the next 2 weeks for repeat ultrasound +/- voiding trial, preferably while he is still on antibiotics. Wang catheter to be changed after at least 2-3 days of culture specific antibiotic treatment, but at least 1-2 days before the course of therapy is completed. -continue home medications Hemoglobin down to 8.0 today, suspect hemodilution component, the patient does have microscopic hematuria as well, baseline per chart review seems to be around 9.0 No evidence of barry bleeding Dispo: likely discharge back to skilled nursing in ~48-72 hrs pending improvement of symptoms, awaiting final blood cultures as well Will need PICC line for IV meropenem, will discuss with ID Time Spent Managing Pts Care (In Minutes): 35
[2020-09-23] MEDS: MELATONIN 5 MG TABLET PO SCH (21:00)
[2020-09-23] MEDS ORDERED: POTASSIUM CL SA 10 MEQ TAB PO ONE (21:00)
[2020-09-23] MEDS: ATORVASTATIN 40 MG TAB PO SCH (21:22)
[2020-09-23] MEDS: TRAMADOL HCL 50 MG TAB PO PRN (21:22)
[2020-09-24] MEDS: Meropenem 1,000 MG in NA CHLORIDE 0.9% 100 ML IV SCH ×3 (02:15→16:00)
[2020-09-24] MEDS: PANTOPRAZOLE 40MG TABLET PO SCH (05:02)
[2020-09-24 06:27] LABS: Potassium 3.6 mmol/L (3.5-5.1)
[2020-09-24] MEDS: INSULIN -REGULAR HUMAN 50 UNIT/0.5 ML ML SQ SCH ×4 (07:30→20:40)
[2020-09-24] MEDS: DIVALPROEX ER 250 MG TAB PO SCH ×2 (07:43→20:25)
[2020-09-24] MEDS: POTASSIUM 25 MEQ EFFERV TAB PO SCH (07:44)
[2020-09-24] MEDS: DOCUSATE NA 100 MG CAP PO SCH (07:44)
[2020-09-24] MEDS: ENOXAPARIN 40 MG/0.4 ML SQ SCH (07:46)
[2020-09-24] MEDS: ASPIRIN EC 81 MG TAB PO SCH (07:46)
[2020-09-24] MEDS: OXYBUTYNIN CHLORIDE 5 MG TAB PO SCH ×3 (07:46→20:24)
[2020-09-24] MEDS: TRAMADOL HCL 50 MG TAB PO PRN (08:02)
[2020-09-24] MEDS ORDERED: METOPROLOL TAR 50 MG TAB PO SCH (09:00)
[2020-09-24] MEDS ORDERED: POTASSIUM CL SA 10 MEQ TAB PO ONE (09:00)
[2020-09-24] MEDS: NIFEDIPINE XL 60 MG TABLET PO SCH ×2 (09:23→20:25)
--- NOTE | 2020-09-24 11:50 | P.PN ---
Subjective Date of Service: 09/24/20 Chief Complaint: Severe sepsis secondary to UTI Subjective: Improving (feels like his usual self, reports chronic pain, otherwise "nothing new". Denies SOB, chest pain, abdominal pain.) Review of Systems 10-point ROS is otherwise unremarkable Physical Examination - Vital Signs Temperature: 98.7 F Blood Pressure: 150/70 Pulse: 63 Respirations: 18 Pulse Ox (%): 97 - Physical Exam General: Alert, In no apparent distress HEENT: Sclerae nonicteric Respiratory: Clear to auscultation bilaterally Cardiovascular: Regular rate/rhythm Gastrointestinal: Soft and benign, Non-distended, No tenderness Musculoskeletal: No tenderness Integumentary: No rashes Neurological: Normal speech Urinary: Parikh catheter (yellow-brown urine) Assessment & Plan Physician Review Additional Text: Severe sepsis secondary to the UTI likely catheter-related Parikh catheter - ?h/o urinary retention GARY, prerenal azotemia, resolved Hypertension DM2 GERD 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 coli, switched to meropenem in afternoon of 09/22. Pro calcitonin improved -did have some hematuria on UA, review of EMR reveals this is chronic -GARY resolved with IVF, and IVF discontinued on 09/22 -Parikh catheter placed on 09/12 due to urinary retention. senior care reports no change of the catheter has been made since then and patient has not followed up with urology -repeat CT abdomen/pelvis was unchanged mild right hydronephrosis and hydroureter -discussed with urology over the phone, Dr. Ortiz, given the improvement of renal function, no urgent/emergent procedure needed at this time. He will need to follow up with Dr. Ortiz within the next 2 weeks for repeat ultrasound +/- voiding trial, preferably while he is still on antibiotics. Parikh catheter to be changed after at least 2-3 days of culture specific antibiotic treatment, but at least 1-2 days before the course of therapy is completed. -blood cultures NG x 24hrs -PICC line placement delayed due to concern with recent PM placement. ID was consulted for possibility of alternative to IV Abx, however preference is for IV meropenem. Pt reports PM was placed ~1 month ago, I reviewed with our capacity planning analyst and he was ok with PICC line placement. -will obtain PICC today/tonight -exchange parikh catheter tomorrow morning (would have received at least 2 days of meropenem by then) -Urology recommends 14days total of antibiotics given his sepsis and ESBL -pt more hypertensive now, will restart partial home medications for now -Hgb down to 8.0 yesterday, suspect hemodilutional component due to IVF for sepsis. repeat Hgb pending today; baseline is around 9.0. No evidence of barry bleeding Dispo: dc back to SNF tomorrow, needs PICC placement and parikh exchanged tomorrow prior to discharge. 14 days total of meropenem, started in afternoon of 09/22 Time Spent Managing Pts Care (In Minutes): 35
[2020-09-24 11:58] LABS: Hematocrit 24.3 % (39.6-49.0); MPV 8.2 fL (7.6-11.3); RBC Red Blood Cell Count 2.88 M/uL (4.33-5.43)
--- NOTE | 2020-09-24 15:19 | CON ---
History Of Present Illness: The patient is a 64-year-old male. I was consulted for urosepsis. The patient also has mild right-sided hydronephrosis and portion of the right ureter also mildly dilated on CT scan. Cultures from 09/20 in the urine growing E coli ESBL. The patient is currently being tr eated with Merrem. See MAR for other medications. The patient feels much better today. Denies any other problems. Past Medical History: Includes recent myocardial infarction and cardiac pacemaker placement, stroke x2, hypertension, bilateral knee pain, benign prostatic hypertrophy, bacteremia, hyperlipidemia. Social History: Nonsmoker. Alcohol positive. Family History: Noncontributory. Medications: Meropenem. See MAR for other medications. Allergies: NO KNOWN DRUG ALLERGIES. Review of Systems: A 10-point review was performed. Physical Examination: General: This is a 64-year-old male, lying in bed, not in any acute cardiopulmonary distress. Vital Signs: Temperature 98, pulse 61, respirations 16, blood pressure 164/81. HEENT: Unremarkable. Neck: Supple. Lungs: Basal crackles. Heart: S1, S2. Regular. Abdomen: Soft. Bowel sounds present. Extremities: No edema. Laboratory Data: Shows WBC 3.3, hemoglobin 8.4, platelets are 239. Chemistry shows sodium 135, pota ssium 3.6, chloride 101, bicarb 30, BUN 7, creatinine 0.9, glucose 138. Assessment And Plan: A 64-year-old male with recent sepsis secondary to ESBL Escherichia coli, curre ntly being treated with meropenem, doing better. Continue treatment for 2 weeks, to be followed with urologist as an outpatient. The patient also has anemia and leukopenia. Monitor CBC and continue s upportive care and repeat urinalysis at the end of antibiotic course and to be followed with urologis t. Thank you for consult. NF/MODL Voice ID: [id number] Report ID: [id number]
--- NOTE | 2020-09-24 17:14 | RAD REPORT ---
EXAM DESCRIPTION: RAD - Chest Single View - 09/24/2020 5:04 pm CLINICAL HISTORY: Device placement PICC line placement . IMPRESSION: PICC line with its tip in the superior vena cava
[2020-09-24] MEDS: ATORVASTATIN 40 MG TAB PO SCH (20:24)
[2020-09-24] MEDS: MELATONIN 5 MG TABLET PO SCH (20:25)
[2020-09-25] MEDS: Meropenem 1,000 MG in NA CHLORIDE 0.9% 100 ML IV SCH ×3 (01:10→16:00)
[2020-09-25] MEDS: TRAMADOL HCL 50 MG TAB PO PRN (04:34)
[2020-09-25 04:50] LABS: Phosphorus 2.4 mg/dL (2.5-4.9); Potassium 3.6 mmol/L (3.5-5.1)
[2020-09-25] MEDS ORDERED: POTASSIUM CL SA 10 MEQ TAB PO ONE (05:08)
[2020-09-25] MEDS ORDERED: POTASS/SODIUM PHOSPHATE 1 PKT POWD.PACK PO SCH (05:09)
[2020-09-25] MEDS: POTASS/SODIUM PHOSPHATE 1 PKT POWD.PACK PO SCH ×3 (06:19→09:16)
[2020-09-25] MEDS: PANTOPRAZOLE 40MG TABLET PO SCH (06:19)
[2020-09-25] MEDS: INSULIN -REGULAR HUMAN 50 UNIT/0.5 ML ML SQ SCH ×3 (07:30→16:53)
[2020-09-25] MEDS: ENOXAPARIN 40 MG/0.4 ML SQ SCH (09:14)
[2020-09-25] MEDS: ASPIRIN EC 81 MG TAB PO SCH (09:15)
[2020-09-25] MEDS: NIFEDIPINE XL 60 MG TABLET PO SCH (09:15)
[2020-09-25] MEDS: DOCUSATE NA 100 MG CAP PO SCH (09:15)
[2020-09-25] MEDS: OXYBUTYNIN CHLORIDE 5 MG TAB PO SCH ×2 (09:15→13:36)
[2020-09-25] MEDS: POTASSIUM 25 MEQ EFFERV TAB PO SCH (09:16)
[2020-09-25] MEDS: DIVALPROEX ER 250 MG TAB PO SCH (09:16)
--- NOTE | 2020-09-25 09:38 | P.DS ---
Admission Date: 09/21/20 Discharge Date: 09/25/20 Disposition: TRANSFER TO SNF Discharge Condition: FAIR Reason for Admission: Severe sepsis secondary to UTI Consultations: Infectious disease-Dr. Morgan . Brief History of Present Illness: 64-year-old shelter resident was brought to the emergency department due to hypotension and fever. Workup in the emergency department demonstrated sepsis. Patient reported recent history of pacemaker placement. He was in the emergency department earlier and was diagnosed with UTI and subsequently discharged back to the shelter on Macrobid. He was also hospitalized a couple of weeks ago for altered mental status and noted to have urinary retention. He was therefore discharged to the shelter with a Wang catheter. CT abdomen and pelvis done in the ED demonstrated mild right hydroureter and hydronephrosis and thickened bladder wall suggestive of cystitis. His urinalysis suggested the presence of UTI. Patient was started on IV antibiotics and admitted for further management. Hospital Course: Sepsis protocol was initiated in the ED, patient hydrated with IV normal saline and started on IV Rocephin. His hypotension responded to IV resuscitation. Urine culture grew ESBL E. coli. Antibiotics was switched to IV meropenem. Infectious disease was consulted, patient was seen by Dr. Morgan who recommended 2 weeks of IV meropenem. His Wang catheter was maintained throughout the hospital stay. Case was discussed with Dr. Ortiz who recommended to continue Wang catheter and follow up with him within 2 weeks for further evaluation. His Wang catheter was changed today. Patient has clinically improved and deemed stable for discharge. He will be transferred to the shelter to continue IV meropenem. Vital Signs/Physical Exam: Temp Pulse Resp BP Pulse Ox 97.4 F 62 17 132/62 96 09/25/20 08:00 09/25/20 09:15 09/25/20 08:00 09/25/20 09:15 09/25/20 08:00 General: Alert, In no apparent distress HEENT: Mucous membr. moist/pink Neck: Supple, JVD not distended Respiratory: Clear to auscultation bilaterally, Normal air movement Cardiovascular: No edema, Regular rate/rhythm, Normal S1 S2 Gastrointestinal: Normal bowel sounds, Non-distended, No tenderness Musculoskeletal: No swelling, No tenderness Integumentary: No rashes, No erythema Neurological: Other (Nonfocal) Laboratory Data at Discharge: WBC 3.3 K/uL (4.3-10.9) L D 09/24/20 11:40 Hgb 8.4 g/dL (13.6-17.9) L 09/24/20 11:40 Hct 24.3 % (39.6-49.0) L 09/24/20 11:40 Plt Count 239 K/uL (152-406) 09/24/20 11:40 PT 13.8 SECONDS (9.5-12.5) H 09/21/20 12:04 INR 1.17 09/21/20 12:04 APTT 27.1 SECONDS (24.3-36.9) 09/21/20 12:04 Sodium 138 mmol/L (136-145) 09/25/20 03:54 Potassium 3.6 mmol/L (3.5-5.1) 09/25/20 03:54 BUN 10 mg/dL (7-18) 09/25/20 03:54 Creatinine 0.88 mg/dL (0.55-1.3) 09/25/20 03:54 Glucose 155 mg/dL (74-106) H 09/25/20 03:54 Phosphorus 2.4 mg/dL (2.5-4.9) L 09/25/20 03:54 Magnesium 1.9 mg/dL (1.8-2.4) 09/23/20 05:29 Total Bilirubin 1.0 mg/dL (0.2-1.0) 09/21/20 12:04 AST 77 U/L (15-37) H 09/21/20 12:04 ALT 75 U/L (12-78) 09/21/20 12:04 Alkaline Phosphatase 115 U/L (45-117) 09/21/20 12:04 Amylase 33 U/L (25-115) 09/21/20 12:04 Lipase 82 U/L (73-393) 09/21/20 12:04 Home Medications: Aspirin [Low Dose Aspirin EC] 81 mg PO DAILY 09/13/20 Divalproex ER [Depakote *ER] 250 mg PO DAILY 09/13/20 Docusate [Colace Cap*] 100 mg PO DAILY 09/13/20 Lisinopril [Zestril] 20 mg PO DAILY 09/13/20 Melatonin 5 mg PO BEDTIME 09/13/20 Nifedipine Xl [Procardia XL*] 60 mg PO BID 09/13/20 traMADol HCL [Ultram*] 50 mg PO BID 09/13/20 Acetaminophen [Tylenol] 650 mg PO TIDP PRN 09/22/20 Atorvastatin Calcium [Lipitor*] 40 mg PO BEDTIME 09/22/20 Divalproex ER [Depakote *ER] 500 mg PO BEDTIME 09/22/20 Linagliptin [Tradjenta] 5 mg PO DAILY 09/22/20 Omeprazole 20 mg PO DAILY 09/22/20 Oxybutynin Chloride [Ditropan*] 5 mg PO TID 09/22/20 Meropenem [Merrem*] 1 gm IV Q8H 11 Days vial 09/25/20 New Medications: Meropenem [Merrem*] 1 gm IV Q8H 11 Days vial Diet: ADA Activity: Ad jeovanny Followup: Unknown,U [Primary Care Provider] - 1-2 Days Domenico Ortiz [COURTESY - CAN ADMIT] - 1-2 Weeks Time spent managing pt's care (in minutes): 40
[2020-09-25 13:31] VITALS: O2SAT 95
[2020-09-25 18:47] VITALS: BP 106/62; TEMP 97.7
--- NOTE | 2020-09-26 06:13 | EKG ---
Test Date: 2020-09-21 Test Time: 12:21:51 Grievance Coordinator: HB MEASUREMENT RESULTS: Intervals: Rate: 68 RI: 190 QRSD: 96 QT: 410 QTc: 435 [place]: P: 30 RI: 190 QRS: 55 T: 62 INTERPRETIVE STATEMENTS: Normal sinus rhythm Normal ECG Compared to ECG 09/20/2020 02:55:48 No significant changes Electronically Signed On 09-26-20 06:10:21 MOBILE SECURITY SPECIALIST by Manuel Johnson
== END 2020-09-25 18:49 | DRG 698 ==
LOC: ER 11:42 → ERHOLD 14:54 → 2ND 16:58
PROVIDERS: ADMIT Hospitalist; ATTEND Internal Medicine
PROC: 02HV33Z Insertion of Infusion Device into Superior Vena Cava, Percutaneous Approach (ICD-10-PCS; principal; 2020-09-24)
DX: T83.511A Infection and inflammatory reaction due to indwelling urethral catheter, initial encounter (principal); A41.51 Sepsis due to Escherichia coli [E. coli]; R65.20 Severe sepsis without septic shock; I69.354 Hemiplegia and hemiparesis following cerebral infarction affecting left non-dominant side; I69.351 Hemiplegia and hemiparesis following cerebral infarction affecting right dominant side; N17.9 Acute kidney failure, unspecified; N12 Tubulo-interstitial nephritis, not specified as acute or chronic; Z16.12 Extended spectrum beta lactamase (ESBL) resistance; N30.90 Cystitis, unspecified without hematuria; E11.9 Type 2 diabetes mellitus without complications; I10 Essential (primary) hypertension; D64.9 Anemia, unspecified; K21.9 Gastro-esophageal reflux disease without esophagitis; D72.819 Decreased white blood cell count, unspecified; F17.210 Nicotine dependence, cigarettes, uncomplicated; I25.2 Old myocardial infarction; R31.9 Hematuria, unspecified; E66.9 Obesity, unspecified; Z68.38 Body mass index [BMI] 38.0-38.9, adult; Z79.82 Long term (current) use of aspirin; Z79.899 Other long term (current) drug therapy; Z95.0 Presence of cardiac pacemaker; Z20.828 Contact with and (suspected) exposure to other viral communicable diseases
CPT/HCPCS: 36415; 36569; 71045; 74176; 80048; 80076; 80164; 81003; 81015; 82150; 82550; 82553; 82947; 83036; 83605; 83690; 83735; 84100; 84132; 84145; 84484; 85025; 85027; 85610; 85730; 87040; 87070; 87077; 87081; 87086; 87088; 87186; 87804; 93005; 94760; 96365; 96366; 96374; 96375; 97112; 97161; 99284; J0696; J1650; J2185; J2405; J2543; J3475; J7030; J7040; U0002; U0003

== ENCOUNTER 2020-12-07 16:01 | Inpatient (IN) | payer OTHER ==
[2020-12-07 16:32] LABS: Absolute Lymphocytes (CBC) 1.6 K/uL (0.7-4.9); Basophils % 0.4 % (0-1.3); Hematocrit 28.2 % (39.6-49.0); Lymphocytes % 11.5 % (15.3-44.8); MPV 8.3 fL (7.6-11.3); RBC Red Blood Cell Count 3.22 M/uL (4.33-5.43)
[2020-12-07 16:36] LABS: Protime INR 1.07
[2020-12-07 16:53] LABS: ALT/SGPT 13 U/L (12-78); AST/SGOT 6 U/L (15-37); Albumin 2.7 g/dL (3.4-5.0); Alkaline Phosphatase 75 U/L (45-117); BUN Blood Urea Nitrogen 116 mg/dL (7-18); Bilirubin Direct 0.2 mg/dL (0-0.2); Bilirubin Total 0.7 mg/dL (0.2-1.0); Creatine Phosphokinase 22 U/L (39-308); Glucose Level 138 mg/dL (74-106); Protein, Total 7.2 g/dL (6.4-8.2); Sodium Level 136 mmol/L (136-145); Troponin (Emerg Dept Use Only) < 0.02 ng/mL (0.0-0.045)
[2020-12-07 16:56] LABS: Bicarbonate 14 mmol/L (21-32)
[2020-12-07] MEDS ORDERED: LIDOCAINE VISCOUS 2% SOLN 15 ML UDC ONE (17:28)
[2020-12-07] MEDS ORDERED: NA CHLORIDE 0.9% 2,000 ML ONE (17:57)
--- NOTE | 2020-12-07 18:02 | RAD REPORT ---
EXAM DESCRIPTION: RAD - Chest Single View - 12/07/2020 5:38 pm CLINICAL HISTORY: SOB Chest pain. COMPARISON: Chest Single View dated 09/24/2020; Chest Single View dated 09/21/2020; Chest Single Vie w dated 09/20/2020; Chest Single View dated 09/12/2020 FINDINGS: Portable technique limits examination quality. Mild interstitial pulmonary edema. The heart is mildly enlarged with a dual lead pacer device present . No displaced fractures. IMPRESSION: Mild CHF.
--- NOTE | 2020-12-07 18:09 | RAD REPORT ---
EXAM DESCRIPTION: CT - Stone Protocol - 12/07/2020 5:34 pm CLINICAL HISTORY: Flank pain. renal failure COMPARISON: Abdomen Pelvis Wo Contrast dated 09/21/2020 TECHNIQUE: Axial images were obtained without oral or IV contrast. Lack of contrast limits solid org an and vascular assessment. The [id number] spans the entirety of the system partially obscuring uppermost abdomen and lung bases. Coronal reformatted images were obtained and reviewed. All CT scans are performed using dose optimization technique as appropriate and may include automated exposure control or mA/KV adjustment according to patient size. FINDINGS: Mild ground-glass opacity is present in the right lung base, nonspecific may represent inf ection or mild interstitial edema. Pacer wires are present in the heart. Small hiatal hernia. Distention of the stomach with air and fluid is present.The liver and spleen are unremarkable. Gallbl adder is distended mildly. The pancreas and adrenal glands are normal. No pathologic lymphadenopathy in the abdomen or pelvis. No urinary tract stones or obstructive uropathy. No bowel obstruction, free air, free fluid or abscess. Normal appendix noted. Mild lumbar degenerative changes. IMPRESSION: No urinary tract stones or obstructive uropathy. No acute process is identified.
[2020-12-07] MEDS ORDERED: CEFTRIAXONE/SWI 1gm 1 GM/10 ML SYR ONE (18:29)
[2020-12-07] MEDS ORDERED: AZITHROMYCIN IV 500 MG in NA CHLORIDE 0.9% 250 ML IVPB ONE (19:00)
--- NOTE | 2020-12-07 19:11 | EDPHYS ---
Physician Documentation [facility] Name: Raphael Hoyos Age: 64 yrs Sex: Male : 1955 Arrival Date: 12/07/2020 Time: 16:06 Bed 4 Private MD: ED Physician Martir Hahn HPI: 12/07 16:20 This 64 yrs old Male presents to ER via EMS with complaints of Shortness Of cp Breath. 16:20 The patient has shortness of breath at rest. Onset: The symptoms/episode began/occurred cp today. Duration: The symptoms are continuous. Associated signs and symptoms: Pertinent negatives: chest pain, fever. Patient is a resident of [facility] and was found to have oxygen sats of 70% on room air. Patient was given breathing treatment and placed on oxygen. Historical: - Allergies: 16:15 NKA; jl7 - Home Meds: 16:36 aspirin 81 mg Oral chew 1 tab once daily [Active]; Colace 100 mg Oral cap 1 cap once hb daily [Active]; divalproex 250 mg Oral Tb24 once daily [Active]; hydralazine 25 mg Oral tab 1 tab 2 time per day, PRN [Active]; Lipitor 40 mg Oral tab 1 tab once daily [Active]; lisinopril 20 mg Oral tab 1 tab once daily [Active]; melatonin 5 mg Oral cap daily [Active]; metoprolol tartrate 50 mg Oral tab 1 tab 2 times per day [Active]; nifedipine 60 mg Oral tr24 1 tab twice a day [Active]; omeprazole 20 mg Oral cpDR 1 cap once daily [Active]; oxybutynin chloride 5 mg Oral tab 1 tab 3 times per day [Active]; tramadol 50 mg Oral tab 1 tab twice a day [Active]; Tradjenta 5 mg Oral tab 1 tab once daily [Active]; Vitamin C 500 mg Oral tab daily [Active]; zinc sulfate 220 mg Oral tab daily [Active]; - PMHx: 16:15 CVA; Diabetes - IDDM; GERD; Hypertension; TIA; jl7 16:36 Dementia; hb - Immunization history:: Adult Immunizations up to date. - Social history:: Smoking status: Patient denies any tobacco usage or history of. ROS: 16:30 Constitutional: Positive for poor PO intake, Negative for fever. cp 16:30 Eyes: Negative for injury, pain, redness, and discharge. cp 16:30 Cardiovascular: Negative for chest pain. 16:30 Respiratory: Positive for cough, Negative for wheezing. 16:30 Abdomen/GI: Negative for abdominal pain, vomiting, diarrhea, constipation, black/tarry stool, rectal bleeding. 16:30 Skin: Negative for cellulitis, rash. 16:30 Neuro: Negative for altered mental status. 16:30 All other systems are negative. Exam: 16:35 Constitutional: The patient appears in no acute distress, alert, awake, cp non-diaphoretic, non-toxic, well developed, well nourished. 16:35 Head/Face: Normocephalic, atraumatic. cp 16:35 Eyes: Periorbital structures: appear normal, Pupils: equal, round, and reactive to light and accomodation, Extraocular movements: intact throughout, Conjunctiva: exudate, bilaterally, injected, bilaterally, Sclera: no appreciated abnormality, Lids and lashes: appear normal, bilaterally. 16:35 ENT: External ear(s): are unremarkable, Nose: is normal, Mouth: Lips: dry, Oral mucosa: dry, Posterior pharynx: Airway: no evidence of obstruction, patent, erythema, is not appreciated, exudate, is not appreciated. 16:35 Neck: ROM/movement: Meningeal signs: are not present, nuchal rigidity, is not appreciated. 16:35 Chest/axilla: Inspection: normal, Palpation: is normal, no crepitus, no tenderness. 16:35 Cardiovascular: Rate: normal, Rhythm: regular, Edema: is not appreciated, JVD: is not appreciated. 16:35 Respiratory: the patient does not display signs of respiratory distress, Respirations: normal, no use of accessory muscles, no retractions, labored breathing, is not present, Breath sounds: bronchial sounds, that are mild, are heard diffusely, decreased breath sounds, are not appreciated, stridor, is not appreciated. 16:35 Abdomen/GI: Inspection: abdomen appears normal, Bowel sounds: active, all quadrants, Palpation: abdomen is soft and non-tender, in all quadrants, rebound tenderness, is not appreciated, voluntary guarding, is not appreciated, involuntary guarding, is not appreciated. 16:35 Skin: cellulitis, is not appreciated, no rash present. 16:35 Neuro: Orientation: to person, place, Mentation: able to follow commands, slow to respond. 16:50 ECG was reviewed by the Attending Physician. Vital Signs: 16:06 BP 94 / 60; Pulse 89; Resp 17; Temp 97.7; Pulse Ox 98% ; Weight 86.18 kg; Pain 0/10; jl7 17:27 BP 94 / 60; Pulse 82; Resp 15; Pulse Ox 97% on R/A; hb 18:26 BP 136 / 84; Pulse 80; Resp 17; Pulse Ox 96% on R/A; hb 22:34 BP 123 / 69; Pulse 81; Resp 16; Pulse Ox 93% ; ea MDM: 16:11 Patient medically screened. 16:30 Differential diagnosis: CHF exacerbation, Chronic Obstructive Pulmonary Disease cp Myocardial Infarction pneumonia, Pneumothorax pulmonary edema, Pulmonary Embolism Sepsis Unstable Angina. 18:50 Physician consultation: Graciela Kyle MD was called at 18:50, was contacted at 18:50, regarding admission, to the telemetry unit. patient's condition. 19:10 Data reviewed: vital signs, nurses notes, lab test result(s), EKG, radiologic studies, cp CT scan, plain films, and as a result, I will admit patient. 19:10 Test interpretation: by ED physician or midlevel provider: ECG, plain radiologic cp studies. 12/07 16:11 Order name: COVID-19 : Document "Date of Symptom Onset" if Symptomatic. 12/07 16:11 Order name: Urine Culture 12/07 16:11 Order name: Basic Metabolic Panel 12/07 16:11 Order name: Blood Culture Adult (2) 12/07 16:11 Order name: CBC with Diff; Complete Time: 17:13 12/07 17:14 Interpretation: Normal except: WBC 14.00; RBC 3.22; HGB 9.1; HCT 28.2; MCV 87.7; RDW cp 16.1; PEPITO% 77.4; LYM% 11.5; NEUT A 10.9; MNA 1.5. 12/07 16:11 Order name: CPK; Complete Time: 17:13 12/07 16:11 Order name: Lactate; Complete Time: 17:13 12/07 16:11 Order name: LFT's; Complete Time: 17:13 12/07 17:14 Interpretation: Normal except: AST 6; ALB 2.7; GLOB 4.5; A/G 0.6. cp 02 16:11 Order name: Procalcitonin; Complete Time: 18:08 cp 12/07 18:08 Interpretation: Normal except: Procalcitonin 0.55. 12/07 16:11 Order name: Protime (+inr); Complete Time: 17:13 12/07 16:11 Order name: Ptt, Activated; Complete Time: 17:13 cp 12/07 16:11 Order name: Troponin (emerg Dept Use Only); Complete Time: 17:13 cp 12/07 16:11 Order name: Urine Microscopic Only 12/07 16:11 Order name: XRAY Chest (1 view); Complete Time: 18:08 12/07 16:12 Order name: Urine Culture [facility] 12/07 16:12 Order name: Basic Metabolic Panel; Complete Time: 17:13 EDCT 12/07 17:14 Interpretation: Normal except: GLUC 138; BUN 116; CA 7.7; CO2 14; CRE 5.56; GFR 10. 12/07 16:12 Order name: Blood Culture [facility] 12/07 17:21 Order name: CT Stone Protocol; Complete Time: 18:10 12/07 18:32 Order name: Urine Dipstick--Ancillary (enter results) 12/07 18:46 Order name: SARS-COV-2 RT PCR; Complete Time: 19:07 EDCT 12/07 19:57 Order name: UR CREAT EDCT 12/07 19:57 Order name: UR SODIUM EDCT 12/07 19:57 Order name: Comprehensive Metabolic Panel [facility] 12/07 19:57 Order name: Comprehensive Metabolic Panel [facility] 12/07 19:57 Order name: CBC with Automated Diff EDCT 12/07 19:57 Order name: CBC with Automated Diff EDCT 12/07 16:11 Order name: Cath; Complete Time: 16:51 cp 12/07 16:11 Order name: Accucheck; Complete Time: 16:51 12/07 16:11 Order name: Cardiac monitoring; Complete Time: 16:51 12/07 16:11 Order name: EKG - Nurse/Tech; Complete Time: 16:51 12/07 16:11 Order name: IV Saline Lock - Large Bore; Complete Time: 16:51 cp 0212 16:11 Order name: Labs collected and sent; Complete Time: 16:51 cp 12/07 16:11 Order name: O2 Per Protocol; Complete Time: 16:51 cp 02 16:11 Order name: O2 Sat Monitoring; Complete Time: 16:51 cp 02 16:11 Order name: Urine Dipstick-Ancillary (obtain specimen); Complete Time: 18:44 cp 12/07 19:57 Order name: CONS Pharmacy Consult EDCT 02 19:57 Order name: CONS Physician Consult EDCT 02 19:57 Order name: Renal EDMS EC:50 Rate is 88 beats/min. Rhythm is regular. MO interval is normal. QRS interval is normal. cp T waves are Inverted in leads aVL, aVR. Interpreted by me. Reviewed by me. Administered Medications: 16:37 Drug: NS 0.9% 500 ml Route: IV; Rate: bolus; Site: left antecubital; hb 19:00 Follow up: Response: No adverse reaction; IV Status: Completed infusion ea 17:52 Drug: NS 0.9% 1000 ml Route: IV; Rate: 1 bolus; Site: right antecubital; hb 19:30 Follow up: Response: No adverse reaction; IV Status: Completed infusion ea 17:52 Drug: NS 0.9% 1000 ml Route: IV; Rate: 1 bolus; Site: right antecubital; hb 19:30 Follow up: Response: No adverse reaction; IV Status: Completed infusion; IV Intake: ea 1000ml 18:15 Drug: Rocephin 1 grams Route: IV; Rate: calculated rate; Site: right antecubital; jl7 19:00 Follow up: IV Status: Completed infusion ea 18:22 Drug: Zithromax 500 mg Route: IVPB; Infused Over: 1 hrs; Site: left antecubital; hb 19:00 Follow up: Response: No adverse reaction; IV Status: Completed infusion ea Disposition: 12/07/20 19:10 Hospitalization ordered by Graciela Kyle for Inpatient Admission. Preliminary diagnosis are Acute kidney failure, Dehydration, Pneumonia due to other specified infectious organisms. - Bed requested for Telemetry/MedSurg (Inpatient). - Status is Inpatient Admission. mw2 - Condition is Stable. - Problem is new. - Symptoms have improved. Addendum: 12/09/2020 14:36 Co-signature as Attending Physician, Martir Hahn MD I agree with the assessment and k plan of care. Signatures: Dispatcher [employer] EDMS Flori Sheehan, RN RADHAMES [facility], Juliana RN RADHAMES Martir Hahn MD MD [facility] Ruiz Oneal PA PA cp Suellen Guo RN RADHAMES Ryder Shane RN RN jl7 DillinghamLatasha woodward mw2 Jocy Cohen RN, ea Corrections: (The following items were deleted from the chart) 12/07 18:04 16:12 CORONAVIRUS ordered. EDCT EDCT 20:07 19:10 Hospitalization Ordered by Graciela Kyle MD for Inpatient Admission. Preliminary diagnosis is Acute kidney failure; Dehydration; Pneumonia due to other specified infectious organisms. Bed requested for Telemetry/MedSurg (Inpatient). Status is Inpatient Admission. Condition is Stable. Problem is new. Symptoms have improved. cp 23:56 20:07 12/07/2020 19:10 Hospitalization Ordered by Graciela Kyle MD for Inpatient mw Admission. Preliminary diagnosis is Acute kidney failure; Dehydration; Pneumonia due to other specified infectious organisms. Bed requested for [facility] ER HOLD. Status is Inpatient Admission. Condition is Stable. Problem is new. Symptoms have improved. 12/08 00:48 12/07 23:56 12/07/2020 19:10 Hospitalization Ordered by Graciela Kyle MD for Inpatient mw2 Admission. Preliminary diagnosis is Acute kidney failure; Dehydration; Pneumonia due to other specified infectious organisms. Bed requested for Telemetry/MedSurg (Inpatient). Status is Inpatient Admission. Condition is Stable. Problem is new. Symptoms have improved. mw
--- NOTE | 2020-12-07 19:11 | ER ---
Nurse's Notes [facility] Name: Raphael Hoyos Age: 64 yrs Sex: Male : 1955 Arrival Date: 12/07/2020 Time: 16:06 Bed 4 Private MD: Diagnosis: Acute kidney failure;Dehydration;Pneumonia due to other specified infectious organisms Presentation: 12/07 16:06 Chief complaint: EMS states: Toned out by [facility] for shortness of breath, O2 70%, they jl7 gave breathing treatment and placed pt on 2 lpm NC, O2 came up to 100%. Pt was hypotensive on EMS arrival to [facility] 70/40, up to normotensive on arrival to ED. Wang catheter in place, dated 11/15/20, from [facility]. 20 Left AC with NS infusing from [facility]. Coronavirus screen: Client denies travel out of the [place] in the last 14 days. At this time, the client does not indicate any symptoms associated with coronavirus-19. Ebola Screen: No symptoms or risks identified at this time. Initial Sepsis Screen: Does the patient meet any 2 criteria? No. Patient's initial sepsis screen is negative. Does the patient have a suspected source of infection? Yes: Dysuria/Frequency/Urgency/UTI. Risk Assessment: Do you want to hurt yourself or someone else? Patient reports no desire to harm self or others. Onset of symptoms is unknown. Care prior to arrival: None. Transition of care: patient was received from another setting of care (long-term care facility), [facility]. 16:06 Method Of Arrival: EMS: [facility] 16:06 Acuity: DANIELA 3 jl7 Triage Assessment: 16:15 General: Appears in no apparent distress. uncomfortable, Behavior is calm, cooperative, jl7 appropriate for age. Pain: Denies pain. Neuro: Level of Consciousness is obeys commands, drowsy. Oriented to person, place, time. Cardiovascular: Patient's skin is warm and dry. Respiratory: Reports Airway is patent Respiratory effort is even, unlabored, Respiratory pattern is regular, symmetrical, Onset: The symptoms/episode began/occurred at an unknown time. the patient has mild shortness of breath Denies shortness of breath. Derm: Skin is pink, warm \T\ dry. Historical: - Allergies: 16:15 NKA; jl7 - Home Meds: 16:36 aspirin 81 mg Oral chew 1 tab once daily [Active]; Colace 100 mg Oral cap 1 cap once hb daily [Active]; divalproex 250 mg Oral Tb24 once daily [Active]; hydralazine 25 mg Oral tab 1 tab 2 time per day, PRN [Active]; Lipitor 40 mg Oral tab 1 tab once daily [Active]; lisinopril 20 mg Oral tab 1 tab once daily [Active]; melatonin 5 mg Oral cap daily [Active]; metoprolol tartrate 50 mg Oral tab 1 tab 2 times per day [Active]; nifedipine 60 mg Oral tr24 1 tab twice a day [Active]; omeprazole 20 mg Oral cpDR 1 cap once daily [Active]; oxybutynin chloride 5 mg Oral tab 1 tab 3 times per day [Active]; tramadol 50 mg Oral tab 1 tab twice a day [Active]; Tradjenta 5 mg Oral tab 1 tab once daily [Active]; Vitamin C 500 mg Oral tab daily [Active]; zinc sulfate 220 mg Oral tab daily [Active]; - PMHx: 16:15 CVA; Diabetes - IDDM; GERD; Hypertension; TIA; jl7 16:36 Dementia; hb - Immunization history:: Adult Immunizations up to date. - Social history:: Smoking status: Patient denies any tobacco usage or history of. Screenin:29 Abuse screen: Denies threats or abuse. Denies injuries from another. Nutritional hb screening: No deficits noted. Tuberculosis screening: No symptoms or risk factors identified. Fall Risk Total [place] Fall Scale indicates High Risk Score (45 or more points). Fall prevention measures have been instituted. Side Rails Up X 2 Frequent Obs/Assessments Occuring As available patient and family educated on Fall Prevention Program and Strategies. Assessment: 16:30 General: see triage assessment. hb 17:27 Reassessment: Patient appears in no apparent distress at this time. No changes from hb previously documented assessment. Patient and/or family updated on plan of care and expected duration. Pain level reassessed. 18:26 Reassessment: Patient appears in no apparent distress at this time. No changes from hb previously documented assessment. Patient and/or family updated on plan of care and expected duration. Pain level reassessed. 19:00 General: Appears in no apparent distress. Respiratory: Airway is patent Respiratory ea effort is even, unlabored, Respiratory pattern is regular, symmetrical. Derm: Skin is pink, warm \T\ dry. 12/08 00:44 Reassessment: Patient and/or family updated on plan of care and expected duration. Pain ea level reassessed. Report called to receiving nurse. Pt left ED via stretcher, pt tolerating well. Vital Signs: 12/07 16:06 BP 94 / 60; Pulse 89; Resp 17; Temp 97.7; Pulse Ox 98% ; Weight 86.18 kg; Pain 0/10; jl7 17:27 BP 94 / 60; Pulse 82; Resp 15; Pulse Ox 97% on R/A; hb 18:26 BP 136 / 84; Pulse 80; Resp 17; Pulse Ox 96% on R/A; hb 22:34 BP 123 / 69; Pulse 81; Resp 16; Pulse Ox 93% ; ea ED Course: 16:06 Patient arrived in ED. jl7 16:08 Ruiz Oneal PA is PHCP. cp 16:08 Martir Hahn MD is Attending Physician. cp 16:14 Patient has correct armband on for positive identification. Placed in gown. Bed in low hb position. Call light in reach. Side rails up X2. tube inspector on. Pulse ox on. NIBP on. 16:15 Triage completed. jl7 16:15 Arm band placed on right wrist. jl7 16:16 Inserted saline lock: 20 gauge in right antecubital area, using aseptic technique. hb Blood collected. 16:16 Maintain EMS IV. Dressing intact. Good blood return noted. Site clean \T\ dry. Gauge \T\ hb site: 20g LAC. 16:21 Ryder Shane, RADHAMES is Primary Nurse. jl7 16:36 Suellen Guo, RADHAMES is Primary Nurse. hb 16:44 EKG done, by ED staff, reviewed by Ruiz GONZALEZ. 3 17:33 CT Stone Protocol In Process Unspecified. EDMS 17:38 XRAY Chest (1 view) In Process Unspecified. EDMS 19:10 Graciela Kyle MD is Hospitalizing Provider. cp 19:38 Primary Nurse role handed off by Suellen Guo, RN mw2 20:39 No provider procedures requiring assistance completed. Patient admitted, IV remains in mg2 place. Administered Medications: 16:37 Drug: NS 0.9% 500 ml Route: IV; Rate: bolus; Site: left antecubital; hb 19:00 Follow up: Response: No adverse reaction; IV Status: Completed infusion ea 17:52 Drug: NS 0.9% 1000 ml Route: IV; Rate: 1 bolus; Site: right antecubital; hb 19:30 Follow up: Response: No adverse reaction; IV Status: Completed infusion ea 17:52 Drug: NS 0.9% 1000 ml Route: IV; Rate: 1 bolus; Site: right antecubital; hb 19:30 Follow up: Response: No adverse reaction; IV Status: Completed infusion; IV Intake: ea 1000ml 18:15 Drug: Rocephin 1 grams Route: IV; Rate: calculated rate; Site: right antecubital; jl7 19:00 Follow up: IV Status: Completed infusion ea 18:22 Drug: Zithromax 500 mg Route: IVPB; Infused Over: 1 hrs; Site: left antecubital; hb 19:00 Follow up: Response: No adverse reaction; IV Status: Completed infusion ea Intake: 19:30 IV: 1000ml; Total: 1000ml. ea Outcome: 19:10 Decision to Hospitalize by Provider. cp 20:39 Admitted to ER Hold. Please see [facility] for further documentation. mg2 20:39 Condition: stable 12/08 00:48 Patient left the ED. mw2 Signatures: Dispatcher [employer] EDMS Ruiz Oneal PA PA cp Suellen Guo RN RN Ryder Mandujano RN RN jl7 Odilia Orozco [facility] Jocy Cohen RN RN ea [place], MyKena 2 Sandro Darby RN RN mg2
[2020-12-07 19:13] LABS: Urine Amorphous Sediment 3+ /HPF (NONE SEEN); Urine Bacteria >50 /HPF (NONE SEEN); Urine RBC 20-50 /HPF (NONE SEEN)
[2020-12-07] MEDS ORDERED: MORPHINE 2 MG/ML SYR IV PRN (19:53)
[2020-12-07] MEDS ORDERED: ONDANSETRON 4 MG/2 ML VIAL IV PRN (19:53)
[2020-12-07] MEDS ORDERED: ALBUTEROL 2.5 MG/3 ML NEB SOL NEB PRN (19:53)
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
[2020-12-07] MEDS: INSULIN -REGULAR HUMAN 50 UNIT/0.5 ML ML SQ SCH (21:00)
[2020-12-07 21:02] LABS: Urine Blood 2+ (NEG); Urine Glucose NEGATIVE (NEG); Urine Protein 2+ (NEG); Urine Specific Gravity 1.025 (1.005-1.030)
[2020-12-07] MEDS ORDERED: SODIUM BICARB 50 MEQ/50ML VIAL ONE ×2 (23:00→23:23)
[2020-12-07] MEDS ORDERED: D5W 1,000 ML IV ONE (23:00)
[2020-12-07] MEDS ORDERED: HEPARIN 5000 UNIT/ML 1 ML VIAL ONE (23:00)
[2020-12-07] MEDS: HEPARIN 5000 UNIT/ML 1 ML VIAL SQ SCH (23:01)
[2020-12-07] MEDS: D5W 1,000 ML with NA BICARB 8.4% 150 MEQ IV SCH ×2 (23:01)
[2020-12-07 23:25] VITALS: BMI 28.0
[2020-12-08 06:45] LABS: Absolute Lymphocytes (CBC) 1.2 K/uL (0.7-4.9); Basophils % 0.6 % (0-1.3); Hematocrit 24.4 % (39.6-49.0); Lymphocytes % 11.5 % (15.3-44.8); MPV 8.5 fL (7.6-11.3); RBC Red Blood Cell Count 2.82 M/uL (4.33-5.43)
[2020-12-08 06:59] LABS: Albumin 2.4 g/dL (3.4-5.0); Bilirubin Total 0.3 mg/dL (0.2-1.0); Protein, Total 6.3 g/dL (6.4-8.2)
[2020-12-08] MEDS: INSULIN -REGULAR HUMAN 50 UNIT/0.5 ML ML SQ SCH ×6 (07:30→21:00)
[2020-12-08] MEDS ORDERED: CEFTRIAXONE 1 GM/NS 50 ML 1 GM/50 ML BAG IV SCH (09:00)
[2020-12-08] MEDS ORDERED: CEFTRIAXONE/SWI 1gm 1 GM/10 ML SYR IV SCH (09:00)
[2020-12-08] MEDS: D5W 1,000 ML with NA BICARB 8.4% 150 MEQ IV SCH ×4 (10:17→17:17)
[2020-12-08] MEDS: HEPARIN 5000 UNIT/ML 1 ML VIAL SQ SCH ×2 (10:22→21:31)
--- NOTE | 2020-12-08 11:56 | P.PN ---
Subjective Date of Service: 12/08/20 Chief Complaint: AMS Patient is more awake and interactive this morning. He is oriented x3. He has no new complaint. Serum creatinine is trending down. Physical Examination - Vital Signs Temperature: 97.1 F Blood Pressure: 95/62 Pulse: 72 Respirations: 16 Pulse Ox (%): 100 - Physical Exam General: In no apparent distress, Oriented x3 HEENT: Mucous membr. moist/pink Neck: Supple, JVD not distended Respiratory: Clear to auscultation bilaterally, Normal air movement Cardiovascular: No edema, Regular rate/rhythm, Normal S1 S2 Gastrointestinal: Soft and benign, Non-distended, No tenderness Musculoskeletal: No swelling, No tenderness Integumentary: No rashes, No erythema Neurological: Normal speech, Normal strength at 5/5 x4 extr, Cranial nerves 3-12 intact Urinary: Wang catheter - Studies Laboratory Data (last 24 hrs) 12/07/20 16:16: PT 12.3, INR 1.07, APTT 26.0 12/07/20 16:16: WBC 14.00 H, Hgb 9.1 L, Hct 28.2 L, Plt Count 233 12/07/20 16:16: Sodium 136, Potassium 5.0, BUN 116 H, Creatinine 5.56 H*, Glucose 138 H, Total Bilirubin 0.7, AST 6 L, ALT 13, Alkaline Phosphatase 75 Assessment And Plan - Current Problems (Diagnosis) (1) Pneumonia Current Visit: Yes Status: Acute (2) Acute kidney injury Current Visit: No Status: Acute (3) Metabolic encephalopathy Current Visit: Yes Status: Acute (4) UTI (urinary tract infection) Current Visit: No Status: Suspected Qualifiers: Urinary tract infection type: site unspecified Hematuria presence: without hematuria Qualified Code(s): N39.0 - Urinary tract infection, site not specified (5) Metabolic acidosis Current Visit: Yes Status: Acute - Plan Patient clinically improving. Serum creatinine is trending down. Metabolic acidosis is improving. Continue IV hydration. Continue IV Rocephin and Zithromax. Wang catheter has been changed. Monitor renal function for improvement. Monitor urine output. Patient states at baseline he mostly uses a wheelchair and ambulate occasionally with a walker.
[2020-12-08] MEDS ORDERED: PNEUMOCOCCAL VACCINE 0.5 ML IMVAC ONE (12:00)
[2020-12-08] MEDS ORDERED: INFLUENZA VACCINE (for 3y+) 0.5 ML DOSE IMVAC ONE (12:00)
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
[2020-12-09] MEDS: CALCIUM CARBONATE CHEW 500MG TAB PO PRN ×3 (00:54→22:01)
[2020-12-09] MEDS: D5W 1,000 ML with NA BICARB 8.4% 150 MEQ IV SCH ×2 (05:47)
[2020-12-09 06:48] LABS: Absolute Lymphocytes (CBC) 0.7 K/uL (0.7-4.9); Basophils % 0.2 % (0-1.3); Lymphocytes % 9.6 % (15.3-44.8); MPV 8.3 fL (7.6-11.3); RBC Red Blood Cell Count 2.35 M/uL (4.33-5.43)
[2020-12-09 06:50] LABS: Albumin 2.4 g/dL (3.4-5.0); Potassium 3.6 mmol/L (3.5-5.1)
[2020-12-09 06:54] LABS: Hematocrit 19.8 % (39.6-49.0)
[2020-12-09] MEDS: INSULIN -REGULAR HUMAN 50 UNIT/0.5 ML ML SQ SCH ×4 (07:30→20:56)
[2020-12-09] MEDS ORDERED: CALCIUM CARBONATE CHEW 500MG TAB PO SCH (09:00)
[2020-12-09] MEDS ORDERED: CEFEPIME 1 GM/VIAL IV SCH (09:00)
[2020-12-09] MEDS: CEFEPIME/SWI 1gm 10 ML IV SCH ×2 (09:36→22:00)
[2020-12-09] MEDS: HEPARIN 5000 UNIT/ML 1 ML VIAL SQ SCH ×2 (09:37→20:55)
--- NOTE | 2020-12-09 09:37 | P.PN ---
Subjective Date of Service: 12/09/20 Chief Complaint: AMS A 64 yr old male [place] resident with PMhx of HTN on lisinopril, recurrent CVA/TIA, DM , CAD, CHF s/p AICD, Chronic urine retention on indwelling parikh pt was admitted for lethargy and AMS pt cr 1.0 in September , in ER pt was hypotensive , CR 5.6, Bicarb 11 Today Cr improved , will change fluid to R/L uCX: E.coli senstive to Bactrim and cefepime Cont cefepeime for one more day and if cr improves can switch to Bactrim will transfuse 1 PRBC Review of Systems: Head and Neck: No red eye. No ear pain. GI: denied nausea or diarrhea. : No polyuria. No dysuria. No hematuria. Theology Professor: N/A Respiratory: No shortness of breath. Cardiovascular: denied chest pain or palpitation Endocrine: No polydipsia. Skin: No rash. Neuro: denied neuropathy. Musculoskeletal: denied joint pain Physical exam general: Awake, alert, Obese, in mild distress Neck; Supple, No elevated JVD hear: RRR, normal S1,2 no murmur or rub Chest: CTAB, no rales or wheezes Abdomen: Soft , Nt, Parikh catheter Extremities No edema or ulcer A/P GARY due to dehydration Abd CT : no hydro cont IVF, will change to Ringer lactate cont to hold losartan HAGMA resolved will stop bicarb drip AMS likely due to uropsepsis resolved Urosepsis cont Abx uCX: E.coli senstive to Bactrim and cefepime Cont cefepeime for one more day and if cr improves can switch to Bactrim parikh changed HTN Pt was hypotesnive in RE cont to hold BP meds Anemic of chronic disease possibly H/H drops due to dilution 1 PRBC today Anemia W/U DM SSI total time spent 45min Physical Examination - Vital Signs Temperature: 98.3 F Blood Pressure: 130/64 Pulse: 106 Respirations: 18 Pulse Ox (%): 96 - Studies Microbiology Data (last 24 hrs): 12/07/20 18:19 Catheterized Urine [place] Count - Final BETWEEN 10,000 & 100,000 CFU/ML 12/07/20 18:19 Catheterized Urine - Final Escherichia Coli Assessment And Plan Physician Review: Patient Assessed, Agree with Above Assessment and Plan
[2020-12-09] MEDS: Ringers Lactate 1,000 ML IV SCH (09:41)
--- NOTE | 2020-12-09 11:34 | P.PN ---
Subjective Date of Service: 12/09/20 Chief Complaint: AMS Patient is more awake and interactive this morning. He is oriented x3. He is having hiccups Serum creatinine continue to trend down. Physical Examination - Vital Signs Temperature: 98.3 F Blood Pressure: 130/64 Pulse: 106 Respirations: 18 Pulse Ox (%): 96 - Physical Exam General: Alert, In no apparent distress, Oriented x3 HEENT: Mucous membr. moist/pink Neck: Supple, JVD not distended Respiratory: Clear to auscultation bilaterally, Normal air movement Cardiovascular: No edema, Regular rate/rhythm, Normal S1 S2 Gastrointestinal: Soft and benign, Non-distended, No tenderness Musculoskeletal: No swelling, No tenderness Integumentary: No rashes, No erythema Neurological: Other (No focal motor deficits) - Studies Microbiology Data (last 24 hrs): 12/07/20 18:19 Catheterized Urine [place] Count - Final BETWEEN 10,000 & 100,000 CFU/ML 12/07/20 18:19 Catheterized Urine - Final Escherichia Coli Assessment And Plan - Current Problems (Diagnosis) (1) Pneumonia Current Visit: Yes Status: Acute (2) Acute kidney injury Current Visit: No Status: Acute (3) Metabolic encephalopathy Current Visit: Yes Status: Acute (4) UTI (urinary tract infection) Current Visit: No Status: Suspected Qualifiers: Urinary tract infection type: site unspecified Hematuria presence: without hematuria Qualified Code(s): N39.0 - Urinary tract infection, site not specif ied (5) Metabolic acidosis Current Visit: Yes Status: Acute (6) Chronic anemia Current Visit: Yes Status: Acute - Plan Patient clinically improving. Metabolic acidosis significantly improved. Serum creatinine is trending down. Continue IV hydration. Urine culture is growing E. coli. Antibiotics changed to IV Cefepime. 1 unit PRBC transfusion orders for hemoglobin of 7. Wang catheter has been changed. Monitor renal function for improvement. Monitor urine output.
[2020-12-09] MEDS ORDERED: NA CHLORIDE 0.9% 250 ML ONE (12:32)
[2020-12-09 19:36] LABS: Hematocrit 23.2 % (39.6-49.0)
[2020-12-10] MEDS: Ringers Lactate 1,000 ML IV SCH ×3 (00:18→14:20)
[2020-12-10 04:49] LABS: Albumin 2.2 g/dL (3.4-5.0); Phosphorus 2.7 mg/dL (2.5-4.9); Potassium 3.7 mmol/L (3.5-5.1)
[2020-12-10 05:26] LABS: Ferritin 247.1 ng/mL (26-388); Folic Acid, (Folate) 7.5 ng/mL (3.1-17.5)
[2020-12-10] MEDS: INSULIN -REGULAR HUMAN 50 UNIT/0.5 ML ML SQ SCH ×4 (07:30→21:00)
[2020-12-10] MEDS: CEFEPIME/SWI 1gm 10 ML IV SCH ×2 (09:03→21:05)
[2020-12-10] MEDS: HEPARIN 5000 UNIT/ML 1 ML VIAL SQ SCH ×2 (09:03→21:05)
--- NOTE | 2020-12-10 13:36 | P.PN ---
Subjective Date of Service: 12/10/20 Chief Complaint: AMS Patient is more awake and interactive this morning. He is oriented x3. He is having hiccups. He reports multiple bouts of watery diarrhea. Serum creatinine continue to trend down. Physical Examination - Vital Signs Temperature: 97.8 F Blood Pressure: 139/80 Pulse: 70 Respirations: 18 Pulse Ox (%): 96 - Physical Exam General: Alert, In no apparent distress, Oriented x3 HEENT: Mucous membr. moist/pink Neck: Supple, JVD not distended Respiratory: Clear to auscultation bilaterally Cardiovascular: No edema, Regular rate/rhythm, Normal S1 S2 Gastrointestinal: Soft and benign, Non-distended, No tenderness Musculoskeletal: No swelling, No tenderness Integumentary: No rashes Neurological: Normal strength at 5/5 x4 extr - Studies Microbiology Data (last 24 hrs): 12/07/20 18:19 Catheterized Urine [place] Count - Final BETWEEN 10,000 & 100,000 CFU/ML 12/07/20 18:19 Catheterized Urine - Final Escherichia Coli Assessment And Plan - Current Problems (Diagnosis) (1) Pneumonia Current Visit: Yes Status: Acute (2) Acute kidney injury Current Visit: No Status: Acute (3) Metabolic encephalopathy Current Visit: Yes Status: Acute (4) UTI (urinary tract infection) Current Visit: No Status: Suspected Qualifiers: Urinary tract infection type: site unspecified Hematuria presence: without hematuria Qualified Code(s): N39.0 - Urinary tract infection, site not specified (5) Metabolic acidosis Current Visit: Yes Status: Acute (6) Chronic anemia Current Visit: Yes Status: Acute (7) Diarrhea Current Visit: Yes Status: Acute - Plan Patient clinically improving. Mental status has improved. Metabolic acidosis resolved. Serum creatinine has trending down and GARY almost resolved. Continue IV hydration. Urine culture is growing resistant strain E. coli. Continue IV Cefepime. Status post 1 unit PRBC transfusion. Posttransfusion hemoglobin is 7.9. Wang catheter has been changed. Monitor renal function for improvement. Monitor urine output. Stool studies-stool WBC, culture and C.diff toxins to evaluate diarrhea.
[2020-12-10] MEDS: GUAIFENESIN/DM 5 ML UCUP PO PRN (21:12)
[2020-12-10] MEDS: CALCIUM CARBONATE CHEW 500MG TAB PO PRN (21:12)
[2020-12-11] MEDS: Ringers Lactate 1,000 ML IV SCH ×2 (04:08→18:02)
[2020-12-11 04:42] LABS: Absolute Lymphocytes (CBC) 0.8 K/uL (0.7-4.9); Basophils % 0.7 % (0-1.3); Hematocrit 22.4 % (39.6-49.0); Lymphocytes % 16.7 % (15.3-44.8); RBC Red Blood Cell Count 2.61 M/uL (4.33-5.43)
[2020-12-11 04:59] LABS: Albumin 2.2 g/dL (3.4-5.0); Phosphorus 2.5 mg/dL (2.5-4.9); Potassium 3.6 mmol/L (3.5-5.1)
[2020-12-11 05:17] LABS: Blood Morphology Comment NOT SEEN (NOT SEEN); Platelet Estimate ADEQ
[2020-12-11] MEDS: INSULIN -REGULAR HUMAN 50 UNIT/0.5 ML ML SQ SCH ×4 (07:30→21:00)
[2020-12-11] MEDS: SOD FERRIC GLUC COMPLX/SUCROSE 250 MG in NA CHLORIDE 0.9% 250 ML IV SCH (09:18)
[2020-12-11] MEDS: GUAIFENESIN/DM 5 ML UCUP PO PRN (09:19)
[2020-12-11] MEDS: CEFEPIME/SWI 1gm 10 ML IV SCH ×2 (09:19→21:31)
[2020-12-11] MEDS: CALCIUM CARBONATE CHEW 500MG TAB PO PRN ×2 (09:19→20:23)
[2020-12-11] MEDS: HEPARIN 5000 UNIT/ML 1 ML VIAL SQ SCH ×2 (09:21→20:23)
[2020-12-11 13:01] LABS: C.diff Antigen/Toxin Ag pos : Tox neg (NEG : NEG)
--- NOTE | 2020-12-11 16:33 | P.PN ---
Subjective Date of Service: 12/11/20 Chief Complaint: AMS Subjective: Improving Review of Systems 10-point ROS is otherwise unremarkable Physical Examination - Vital Signs Temperature: 97.6 F Blood Pressure: 160/78 Pulse: 85 Respirations: 18 Pulse Ox (%): 99 Assessment & Plan Physician Review Additional Text: Physical Exam General: Alert, In no apparent distress, Oriented x3 HEENT: Mucous membr. moist/pink Neck: Supple, JVD not distended Respiratory: Clear to auscultation bilaterally Cardiovascular: No edema, Regular rate/rhythm, Normal S1 S2 Gastrointestinal: Soft and benign, Non-distended, No tenderness MSK: No swelling, No tenderness Problem List: Pneumonia GARY Metabolic Encephalopathy due to pneumonia/ UTI UTI - cystitis Metabolic acidosis Chronic anemia diarrhea improving. near baseline, has dementia and some confusion remains Metabolic acidosis resolved. Serum creatinine has trending down and GARY almost resolved. Continue IV hydration. Urine culture is growing resistant strain E. coli. Continue IV Cefepime. ID consulted s/p 1u PRBC. Hgb stable so far Wang catheter has been changed. Stool studies-stool WBC, culture and C.diff toxins pending to evaluate diarrhea. Time Spent Managing Pts Care (In Minutes): 40
[2020-12-12 04:38] LABS: Absolute Lymphocytes (CBC) 0.9 K/uL (0.7-4.9); Basophils % 0.9 % (0-1.3); Hematocrit 22.8 % (39.6-49.0); Lymphocytes % 13.4 % (15.3-44.8); MPV 7.5 fL (7.6-11.3); RBC Red Blood Cell Count 2.68 M/uL (4.33-5.43)
[2020-12-12 05:06] LABS: Albumin 2.1 g/dL (3.4-5.0); Bilirubin Total 0.4 mg/dL (0.2-1.0); Phosphorus 2.9 mg/dL (2.5-4.9); Potassium 3.4 mmol/L (3.5-5.1); Protein, Total 6.2 g/dL (6.4-8.2)
[2020-12-12 05:07] LABS: Magnesium 1.2 mg/dL (1.8-2.4)
[2020-12-12] MEDS ORDERED: POTASSIUM CL SA 10 MEQ TAB PO ONE (06:30)
[2020-12-12] MEDS ORDERED: Magnesium Sulfate 2gm IVPB 2 G/50 ML BAG IV ONE (06:30)
[2020-12-12] MEDS: INSULIN -REGULAR HUMAN 50 UNIT/0.5 ML ML SQ SCH ×4 (07:30→20:49)
[2020-12-12] MEDS: SOD FERRIC GLUC COMPLX/SUCROSE 250 MG in NA CHLORIDE 0.9% 250 ML IV SCH (08:24)
[2020-12-12] MEDS: Ringers Lactate 1,000 ML IV SCH (08:24)
[2020-12-12] MEDS: CEFEPIME/SWI 1gm 10 ML IV SCH ×2 (08:25→20:48)
[2020-12-12] MEDS: HEPARIN 5000 UNIT/ML 1 ML VIAL SQ SCH ×2 (08:25→20:48)
[2020-12-12 12:30] LABS: Magnesium 1.7 mg/dL (1.8-2.4); Potassium 3.5 mmol/L (3.5-5.1)
[2020-12-12] MEDS ORDERED: MAGNESIUM SULFATE 1 gm IVPB 1 GM/100 ML BAG IV ONE (12:43)
[2020-12-12] MEDS ORDERED: POTASSIUM 25 MEQ EFFERV TAB PO ONE (12:43)
[2020-12-12] MEDS: CALCIUM CARBONATE CHEW 500MG TAB PO PRN ×2 (13:12→19:38)
[2020-12-12] MEDS: VANCOMYCIN ORAL SOLN 250 MG/5 ML OSYR PO SCH ×3 (13:12→23:47)
[2020-12-12] MEDS: GUAIFENESIN/DM 5 ML UCUP PO PRN (13:12)
[2020-12-12] MEDS ORDERED: MAGNESIUM 50% 3 GM in NA CHLORIDE 0.9% 100 ML IV ONE (14:00)
--- NOTE | 2020-12-12 16:10 | PN ---
Date of Progress Note: 12/12/2020 Subjective: The patient was admitted with acute kidney injury and UTI. The patient was started on antibiotic, hydration. His diarrhea has been subsided, feeling better. Physical Examination: Vital Signs: When I saw the patient blood pressure 136/75, pulse of 73, afebrile. The patient had good urine output of 4300. Chest: Clear to auscultation. Heart: S1, S2. Regular. Abdomen: Soft, nontender. Extremities: No edema. Neuro: Alert and oriented x3. No focal. Laboratory Data: Sodium 143, potassium 3.4, bicarb 28, BUN 25, creatinine 0.9, calcium 8, phosphorus 2.9, magnesium 1.2, ALT 345, alkaline phosphatase 327, albumin 2.1. WBC 6.5, H and H 8.1/22.8. Current Medications: The patient on include cefepime that was started on the , vancomycin, IV iron, calcium carbonate, Tylenol, LR, insulin. Assessment And Plan: 1. Acute kidney injury secondary to prerenal/toxic ATN, recovered, resolved. I am going to go ahead and discontinue IV fluid as the patient looked to me normal volume and we will continue to monitor. The patient cleared from the renal standpoint for discharge planning. 2. Hypokalemia, hypomagnesemia. I am going to give the patient another gram of magnesium. I agree with current replenishment of his potassium. 3. Hypertension, controlled, optimal. Continue current treatment. 4. Urinary tract infection secondary to Escherichia coli. The patient was started on cephalosporin, started having elevation on ALT and alkaline phosphatase. Consider to switch cephalosporin as by culture to either Macrobid or okay from the Renal standpoint for Bactrim to be used. Discussed with Dr. Douglas. 5. Colitis. Continue vancomycin oral. Time spent discussing with the patient, examining the patient, exam [id number], placing order, discussing with staff and other consulting include including Cardiology and Primary 45 minutes. HOMERO Voice ID: [id number] Report ID: [id number] DOM
--- NOTE | 2020-12-12 16:41 | P.PN ---
Subjective Date of Service: 12/12/20 Chief Complaint: AMS Subjective: Improving (Doing better, reports still had diarrhea overnight essentially unchanged. Otherwise feeling okay) Review of Systems 10-point ROS is otherwise unremarkable Physical Examination - Vital Signs Temperature: 97.7 F Blood Pressure: 136/75 Pulse: 73 Respirations: 20 Pulse Ox (%): 97 - Studies Microbiology Data (last 24 hrs): 12/07/20 16:16 Blood - Blood Aerobic Blood Culture - Final No growth in 5 days. 12/07/20 16:16 Blood - Blood Anaerobic Blood Culture - Final No growth in 5 days. 12/07/20 16:15 Blood - Blood Aerobic Blood Culture - Final No growth in 5 days. 12/07/20 16:15 Blood - Blood Anaerobic Blood Culture - Final No growth in 5 days. Assessment & Plan Physician Review Additional Text: Physical Exam General: Alert, In no apparent distress, Oriented x3, mild confusion/dementia HEENT: Mucous membr. moist/pink Respiratory: Clear to auscultation bilaterally Cardiovascular: Regular rate/rhythm, Normal S1 S2 Gastrointestinal: soft, mild TTP in RLQ MSK: No swelling, No tenderness Problem List: Pneumonia, community acquired GARY Metabolic Encephalopathy due to pneumonia/ UTI UTI - cystitis Metabolic acidosis Chronic anemia diarrhea improving. near baseline, has dementia and some confusion remains Metabolic acidosis resolved. Serum creatinine has trended down and GARY almost resolved. discussed with nephrology correct electrolytes Urine culture is growing resistant strain E. coli. Continue IV Cefepime. ID consulted s/p 1u PRBC. Hgb stable so far Wang catheter has been changed. Stool studies-stool WBC, culture and C.diff toxins pending to evaluate diarrhea. start PO Vanc today given continued diarrhea today reports abdominal pain has been chronic for "several years" Dispo: anticipate dc in ~24hrs back to SNF Time Spent Managing Pts Care (In Minutes): 35
[2020-12-12] MEDS: ACETAMINOPHEN 500 MG TAB PO PRN (18:42)
[2020-12-12] MEDS: HYDRALAZINE HCL 20 MG/ML VIAL IV PRN (20:49)
[2020-12-13 04:42] LABS: Basophils % 0.6 % (0-1.3); Lymphocytes % 15.7 % (15.3-44.8); MPV 7.4 fL (7.6-11.3); RBC Red Blood Cell Count 2.69 M/uL (4.33-5.43)
[2020-12-13 04:54] LABS: Albumin 2.1 g/dL (3.4-5.0); Bilirubin Total 0.4 mg/dL (0.2-1.0); Magnesium 1.5 mg/dL (1.8-2.4); Potassium 3.5 mmol/L (3.5-5.1); Protein, Total 6.2 g/dL (6.4-8.2)
[2020-12-13] MEDS: VANCOMYCIN ORAL SOLN 250 MG/5 ML OSYR PO SCH ×3 (05:27→18:17)
[2020-12-13] MEDS ORDERED: Magnesium Sulfate 2gm IVPB 2 G/50 ML BAG IV ONE (06:00)
[2020-12-13] MEDS ORDERED: KCL 20 MEQ/100 mL IVPB 20 MEQ/100 ML BAG IV SCH (07:00)
[2020-12-13] MEDS ORDERED: NA CHLORIDE 0.9% 250 ML ONE ×2 (07:02→21:24)
[2020-12-13] MEDS: INSULIN -REGULAR HUMAN 50 UNIT/0.5 ML ML SQ SCH ×4 (07:30→21:00)
--- NOTE | 2020-12-13 09:14 | RAD REPORT ---
EXAM DESCRIPTION: US - Abdomen Exam Limited - 12/13/2020 7:48 am CLINICAL HISTORY: RUQ, eval liver/GB COMPARISON: [facility] Protocol dated 12/07/2020 FINDINGS: Several small mobile gallstones are identified along with a small quantity of sludge. Gall bladder wall thickening and edema are present with a trace amount of pericholecystic fluid. No gallbl adder wall mass identified. No common duct stone or biliary tree dilatation identified. No focal liver lesion identified. There is a coarsened, increased echogenicity. This is nonspecific b ut can be seen with fatty infiltration. No capsule nodularity identified. IMPRESSION: Stones, sludge, wall thickening and pericholecystic fluid are present. Correlation is ne eded with any clinical findings of acute cholecystitis. No duct stone or biliary tree dilatation. Suspected fatty infiltration of a normal size liver. No focal liver lesion.
[2020-12-13] MEDS: SOD FERRIC GLUC COMPLX/SUCROSE 250 MG in NA CHLORIDE 0.9% 250 ML IV SCH (09:20)
[2020-12-13] MEDS: HEPARIN 5000 UNIT/ML 1 ML VIAL SQ SCH ×2 (09:20→21:18)
[2020-12-13] MEDS: CEFEPIME/SWI 1gm 10 ML IV SCH (09:22)
[2020-12-13] MEDS: CALCIUM CARBONATE CHEW 500MG TAB PO PRN (12:42)
--- NOTE | 2020-12-13 18:47 | PN ---
Date of Progress Note: 12/13/2020 Subjective: The patient was admitted with colitis. Patient was started on treatment. The patient still has nausea and vomiting. Physical Examination: Vital Signs: When I saw the patient blood pressure 141/67, pulse of 63, afebrile. He patient had good urine output of 3 L. Chest: Clear to auscultation. Heart: S1, S2. Systolic murmur. Abdomen: Soft, nontender. Extremity: Trace edema. Neurologic: Alert. No focality. Laboratory Data: WBC 6.3, H and H 7.9/23, platelet of 316. Sodium 143, potassium 3.5, bicarb 29, BUN 21, creatinine 0.9, calcium 8, magnesium 1.5. Current Medications: The patient on include: 1. Albuterol. 2. Cefepime. 3. Vancomycin. 4. IV iron. 5. Heparin. 6. Hydralazine. 7. Calcium carbonate. Assessment And Plan: 1. Acute kidney injury secondary to prerenal, recovered, resolved. I going to continue current monitoring. 2. Hypertension, controlled, optimal. 3. Urinary tract infection secondary to Escherichia coli with the presence of elevation in LFTs. Consider to switch either to Bactrim and/or Macrobid. 4. Hypomagnesemia. We will supplement. 5. Colitis as by primary. Time spent discussing with the patient, examining the patient, exam [id number], placing order, discussing with staff and other consulting include including Cardiology and Primary 45 minutes. HOMERO Voice ID: [id number] Report ID: [id number] DOM
--- NOTE | 2020-12-13 20:05 | P.PN ---
Subjective Date of Service: 12/13/20 Chief Complaint: AMS Subjective: No new changes (overall feeling better, continues with R sided abdominal pain, nothing in particular worsens/alleviates it, states has been dealing with it for "years", unclear if intermittently or continuous for that time period. reports diarrhea improved) Review of Systems 10-point ROS is otherwise unremarkable Physical Examination - Vital Signs Temperature: 97.9 F Blood Pressure: 140/65 Pulse: 70 Respirations: 17 Pulse Ox (%): 96 - Studies Microbiology Data (last 24 hrs): 12/07/20 16:16 Blood - Blood Aerobic Blood Culture - Final No growth in 5 days. 12/07/20 16:16 Blood - Blood Anaerobic Blood Culture - Final No growth in 5 days. 12/07/20 16:15 Blood - Blood Aerobic Blood Culture - Final No growth in 5 days. 12/07/20 16:15 Blood - Blood Anaerobic Blood Culture - Final No growth in 5 days. Assessment & Plan Physician Review Additional Text: Physical Exam General: Alert, In no apparent distress, Oriented x3, mild confusion/dementia HEENT: Mucous membr. moist/pink Respiratory: Clear to auscultation bilaterally Cardiovascular: Regular rate/rhythm, Normal S1 S2 Gastrointestinal: soft, mild TTP in right mid abdomen MSK: no tenderness Problem List: Pneumonia, community acquired UTI - cystitis GARY Metabolic Encephalopathy due to pneumonia/ UTI Metabolic acidosis Chronic anemia diarrhea improving. at ~baseline. Metabolic acidosis resolved. Serum creatinine has trended down and GARY resolved correct electrolytes Urine culture is growing resistant strain E. coli. Continue IV Cefepime. ID consulted s/p 1u PRBC. Hgb stable so far, receiving IV Iron Wang catheter has been changed earlier in hospitalization Stool studies-stool WBC, culture and C.diff toxins - c diff Ab positive, toxin negative (possible carrier), started PO Vanc on 12/12 given continued diarrhea reports abdominal pain has been chronic for "several years", again can't give more specifics in terms of timing / episodic LFTs slightly improved, RUQ U/S done today, showed findings concerning for possible acute cholecystitis consulted general surgery -reviewed imaging/labs, unlikely to be true acute cholecystitis, can have similar findings in patients with his comorbidities. recommended antibiotics for now, consider f/u in 1-2 weeks for elective cholecystectomy if pain persists PICC ordered, pt switched to meropenem - to cover resistant E.coli in urine, pneumonia, and possible cholecystitis Dispo: anticipate dc in ~24-48hrs back to SNF Time Spent Managing Pts Care (In Minutes): 40
[2020-12-13] MEDS: Meropenem 1 GM/100 ML BAG IV SCH (21:06)
[2020-12-13] MEDS ORDERED: MEROPENEM ONE (21:16)
[2020-12-14] MEDS ORDERED: Meropenem 1000 MG/VIAL IV SCH (01:00)
[2020-12-14] MEDS: VANCOMYCIN ORAL SOLN 250 MG/5 ML OSYR PO SCH ×4 (01:31→17:09)
[2020-12-14] MEDS: Meropenem 1 GM/100 ML BAG IV SCH (05:02)
[2020-12-14] MEDS: HYDRALAZINE HCL 20 MG/ML VIAL IV PRN (05:03)
[2020-12-14 05:22] LABS: Absolute Lymphocytes (CBC) 1.3 K/uL (0.7-4.9); Basophils % 0.9 % (0-1.3); Hematocrit 24.4 % (39.6-49.0); Lymphocytes % 20.4 % (15.3-44.8); MPV 7.3 fL (7.6-11.3); RBC Red Blood Cell Count 2.84 M/uL (4.33-5.43)
[2020-12-14 05:31] LABS: Albumin 2.2 g/dL (3.4-5.0); Bilirubin Total 0.4 mg/dL (0.2-1.0); Magnesium 1.6 mg/dL (1.8-2.4); Potassium 3.3 mmol/L (3.5-5.1); Protein, Total 6.4 g/dL (6.4-8.2)
[2020-12-14] MEDS: INSULIN -REGULAR HUMAN 50 UNIT/0.5 ML ML SQ SCH ×4 (07:30→20:29)
--- NOTE | 2020-12-14 07:34 | P.CNS ---
Date of Consult: 12/14/20 PC: I was asked to see this 65-year-old male to evaluate gallstones and sludge in his gallbladder found on ultrasound. HPC: This 65-year-old male presented to the emergency room with lethargy and weakness. He has a chronic indwelling catheter. He was found have a UTI, as well as a possible right basal pneumonia. He has been on antibiotics, and now had elevation of his liver enzymes. This led to an ultrasound which demonstrated stones sludge and some possible pericystic fluid. No common bile duct this stones were seen. PMH: He has a history of hypertension, coronary artery disease, dementia, with chronic urinary retention. PSHx: Previous removal of foreign body SOC: No known allergies, medications reviewed SYS REVIEW: States his pain is about the same. He has discomfort in the right lower quadrant of his abdomen into his back. O/E awake alert interactive does not appear to be any acute distress vital signs are stable. The moment HEENT: Nonicteric Chest: Chest movement equal bilaterally ABD: Abdomen is soft, mild tenderness in the right lower quadrant LOCO: Intact DATA: Elevated liver enzymes, serum albumin is 2.2. CT scan shows possible early nodularity, as well as a fatty infiltration. IMPRESSION: This patient does have gallstones as well as sludge. He shows some fluid around his gallbladder but I feel is secondary to his liver. He had been a heavy drinker for good number of years, his CT scan shows subtle nodularity is what is as fatty infiltration. Princess is not any evidence of any common duct pathology. His serum albumin is 2.2 at the moment. PLAN: This patient is being treated with antibiotics for his UTI. Do not feel he requires an emergent surgery at the moment and he is a poor candidate at the current time. Once his urinary issues have been resolved, he is more than welcome to discuss with any surgery in the future. Obviously if clinical course changes and he develops more hard signs of cholecystitis, we could intervene. Thank you
[2020-12-14] MEDS: lisinopriL 20 MG TAB PO SCH (08:55)
[2020-12-14] MEDS: HEPARIN 5000 UNIT/ML 1 ML VIAL SQ SCH ×2 (09:00→20:28)
[2020-12-14] MEDS ORDERED: MAGNESIUM SULFATE 1 gm IVPB 1 GM/100 ML BAG IV ONE (09:00)
[2020-12-14] MEDS: SOD FERRIC GLUC COMPLX/SUCROSE 250 MG in NA CHLORIDE 0.9% 250 ML IV SCH (09:00)
--- NOTE | 2020-12-14 10:20 | RAD REPORT ---
EXAM DESCRIPTION: CT - Ct Stroke Brain Wo Cont - 12/14/2020 10:10 am CLINICAL HISTORY: L ARM WEAKNESS Headache, drowsiness, CVA symptomology COMPARISON: Head Brain Wo Cont dated 09/12/2020; Head Brain Wo Cont dated 08/05/2020; Chest Abdomen Pelvis W Cont dated 12/14/2020 TECHNIQUE: All CT scans are performed using dose optimization technique as appropriate and may inclu de automated exposure control or mA/KV adjustment according to patient size. FINDINGS: No intracranial hemorrhage, hydrocephalus or extra-axial fluid collection.Mild generalized brain atrophy is present with mild periventricular and deep white matter chronic microvascular ische tyrell changes.No areas of brain edema or evidence of midline shift. The paranasal sinuses and mastoids are clear. The calvarium is intact. IMPRESSION: No acute intracranial abnormality.
--- NOTE | 2020-12-14 10:26 | RAD REPORT ---
EXAM DESCRIPTION: CT - Chest Abdomen Pelvis W Cont - 12/14/2020 10:10 am CLINICAL HISTORY: Chest and abdomen pain. L ARM WEAKNESS COMPARISON: Abdomen Exam Limited dated 12/13/2020 TECHNIQUE: Approximately 100 mL nonionic IV contrast was administered to the patient. All CT scans are performed using dose optimization technique as appropriate and may include automated exposure control or mA/KV adjustment according to patient size. FINDINGS: Mild interstitial pulmonary edema seen.Pacemaker is in place.No pleural or pericardial eff usion.No intrathoracic adenopathy.Mild cardiomegaly. The liver, spleen, pancreas, adrenal glands and kidneys are within normal limits. Gallbladder wall th ickening is suspected with gallstones present. No bowel obstruction, free air, free fluid or abscess. Normal appendix. There is diffuse thickening o f the urinary bladder with mild surrounding inflammation likely indicating urinary tract infection/ c ystitis. No pathologic lymphadenopathy in the abdomen or pelvis. No worrisome osseous finding. IMPRESSION: Inflammation of the urinary bladder is seen likely indicating cystitis. Cholelithiasis with mild gallbladder wall thickening noted likely representing cholecystitis.
[2020-12-14] MEDS: Meropenem 1,000 MG in NA CHLORIDE 0.9% 100 ML IV SCH ×3 (11:00→17:00)
--- NOTE | 2020-12-14 11:16 | P.PN ---
Subjective Date of Service: 12/14/20 Chief Complaint: AMS A 64 yr old male [place] resident with PMhx of HTN on lisinopril, recurrent CVA/TIA, DM , CAD, CHF s/p AICD, Chronic urine retention on indwelling parikh pt was admitted for lethargy and AMS pt cr 1.0 in September , in ER pt was hypotensive , CR 5.6, Bicarb 11 Today no overnight events stable VS Cr stable low Mg and potassium , will replace Physical exam general: Awake, alert, Obese, in mild distress Neck; Supple, No elevated JVD hear: RRR, normal S1,2 no murmur or rub Chest: CTAB, no rales or wheezes Abdomen: Soft , Nt, Parikh catheter Extremities No edema or ulcer A/P GARY due to dehydration Abd CT : no hydro cont IVF, will change to Ringer lactate HAGMA resolved AMS likely due to uropsepsis resolved Urosepsis cont Abx uCX: E.coli sensitive to Bactrim and cefepime Cont cefepeime for one more day and if cr improves can switch to Bactrim parikh changed HTN Pt was hypotesnive in RE cont current meds C.diff Cont Abx hypokalemia and hypomagnesemia replace prn DM SSI total time spent 45min Physical Examination - Vital Signs Temperature: 97.8 F Blood Pressure: 126/66 Pulse: 70 Respirations: 18 Pulse Ox (%): 96 Assessment And Plan Physician Review: Patient Assessed, Agree with Above Assessment and Plan
--- NOTE | 2020-12-14 17:22 | P.PN ---
Subjective Date of Service: 12/14/20 Chief Complaint: AMS Subjective: Improving (Overall feeling better. Reports left hand/arm swelling, concerned he had a stroke, continues with mild right lower quadrant abdominal tenderness. Tolerating diet, does not exacerbate pain. Diarrhea improved) Review of Systems 10-point ROS is otherwise unremarkable Physical Examination - Vital Signs Temperature: 98.6 F Blood Pressure: 158/71 Pulse: 65 Respirations: 18 Pulse Ox (%): 96 Assessment & Plan Physician Review Additional Text: Physical Exam General: Alert, NAD, confusion/dementia HEENT: Mucous membr. moist/pink Respiratory: Clear to auscultation bilaterally Cardiovascular: Regular rate/rhythm, Normal S1 S2 Gastrointestinal: soft, mild TTP in RLQ Ext: edema of l hand/forearm from IV site / infiltration Neuro: R sided weakness, dimished sensation. LUE: intact sensation, 4+/5 strength. CN II-XII grossly intact Problem List: Pneumonia, community acquired UTI - cystitis GARY Metabolic Encephalopathy due to pneumonia/ UTI Metabolic acidosis Chronic anemia diarrhea appears to be at baseline GARY resolved Urine culture is growing resistant strain E. coli. was on IV cefepime -switched to meropenem and due to the possible cholecystitis s/p 1u PRBC. Hgb stable so far, receiving IV Iron Wang catheter has been changed earlier in hospitalization Stool studies-stool WBC, culture and C.diff toxins - c diff Ab positive, toxin negative (possible carrier), started PO Vanc on 12/12 given continued diarrhea. Awaiting PCR LFTs improving, right upper quadrant ultrasound and CT abdomen with radiographic findings of acute cholecystitis. Patient without right upper quadrant pain/Shukla sign. consulted general surgery -reviewed imaging/labs, unlikely to be true acute cholecystitis, can have similar findings in patients with his comorbidities. recommended antibiotics for now, consider f/u in 1-2 weeks for elective cholecystectomy if pain persists PICC ordered, pt switched to meropenem - to cover resistant E.coli in urine, pneumonia, and possible cholecystitis Dispo: anticipate dc in ~24-48hrs back to SNF unable to place PICC line today Time Spent Managing Pts Care (In Minutes): 35
[2020-12-14] MEDS ORDERED: POTASSIUM 25 MEQ EFFERV TAB PO ONE (18:00)
--- NOTE | 2020-12-14 20:57 | RAD REPORT ---
EXAM DESCRIPTION: RAD - Chest Single View - 12/14/2020 8:51 pm CLINICAL HISTORY: Device placement PICC line placement IMPRESSION: PICC line with its tip in the superior vena cava
[2020-12-15] MEDS: VANCOMYCIN ORAL SOLN 250 MG/5 ML OSYR PO SCH ×4 (00:03→18:15)
[2020-12-15] MEDS: Meropenem 1,000 MG in NA CHLORIDE 0.9% 100 ML IV SCH ×3 (00:03→16:42)
[2020-12-15] MEDS ORDERED: NA CHLORIDE 0.9% 250 ML ONE (00:14)
[2020-12-15 04:46] LABS: Absolute Lymphocytes (CBC) 1.1 K/uL (0.7-4.9); Hematocrit 22.8 % (39.6-49.0); Lymphocytes % 17.4 % (15.3-44.8); MPV 7.1 fL (7.6-11.3); RBC Red Blood Cell Count 2.64 M/uL (4.33-5.43)
[2020-12-15 05:04] LABS: Albumin 2.2 g/dL (3.4-5.0); Bilirubin Total 0.4 mg/dL (0.2-1.0); Magnesium 1.7 mg/dL (1.8-2.4); Potassium 3.5 mmol/L (3.5-5.1); Protein, Total 6.2 g/dL (6.4-8.2)
[2020-12-15] MEDS: INSULIN -REGULAR HUMAN 50 UNIT/0.5 ML ML SQ SCH ×4 (07:30→21:00)
[2020-12-15] MEDS: HEPARIN 5000 UNIT/ML 1 ML VIAL SQ SCH ×2 (09:00→21:25)
[2020-12-15] MEDS ORDERED: KCL 20 MEQ/100 mL IVPB 20 MEQ/100 ML BAG IV ONE (09:00)
[2020-12-15] MEDS ORDERED: MAGNESIUM SULFATE 1 gm IVPB 1 GM/100 ML BAG IV ONE ×2 (09:00→11:16)
[2020-12-15] MEDS: lisinopriL 20 MG TAB PO SCH (09:37)
--- NOTE | 2020-12-15 13:25 | PN ---
Date of Progress Note: 12/15/2020 Subjective: The patient was admitted with acute kidney injury secondary to prerenal recover. The patient had some colitis. After hydration kidney function has been improved. Physical Examination: Vital Signs: Blood pressure 130/68, pulse of 74 afebrile. The patient had good urine output of 1500. Chest: Clear to auscultation. Heart: S1, S2 regular. Abdomen: Soft, mild tenderness in the right upper quadrant. Extremities: Trace edema. Neurologic: Alert, no focality. Laboratory Data: WBC 6.5, H and H 7.8/22.8, platelets 342. Sodium 143, potassium 3.5, bicarb 31, BUN 15, creatinine 0.9, calcium 8, phos 2.9, magnesium 1.7. LFT trend down. Current Medications: Include: 1. Meropenem. 2. Vancomycin oral. 3. Calcium carbonate. 4. Lisinopril. 5. Magnesium oxide. 6. KCl. Assessment And Plan: 1. Acute kidney injury secondary to prerenal, recovered, resolved. 2. Hypokalemia, hypomagnesemia. We will supplement. 3. Urinary tract infection secondary to E coli, multidrug resistant. I agree with the meropenem. 4. Colitis as by primary. Time spent discussing with the patient, examining the patient, exam [id number], placing order, discussing with staff and other consulting include Primary 45 minutes. HOMERO Voice ID: [id number] Report ID: [id number] MTDTeddy
--- NOTE | 2020-12-15 13:47 | P.DS ---
Admission Date: 12/07/20 Discharge Date: 12/15/20 Disposition: TRANSFER TO SNF - MEDICAL Discharge Condition: FAIR Reason for Admission: AMS Vital Signs/Physical Exam: Temp Pulse Resp BP Pulse Ox 98.6 F 70 20 136/74 96 12/15/20 12:00 12/15/20 12:00 12/15/20 12:00 12/15/20 12:00 12/15/20 12:00 Laboratory Data at Discharge: WBC 6.50 K/uL (4.3-10.9) 12/15/20 04:30 Hgb 7.8 g/dL (13.6-17.9) L* 12/15/20 04:30 Hct 22.8 % (39.6-49.0) L 12/15/20 04:30 Plt Count 342 K/uL (152-406) 12/15/20 04:30 PT 12.3 SECONDS (9.5-12.5) 12/07/20 16:16 INR 1.07 12/07/20 16:16 APTT 26.0 SECONDS (24.3-36.9) 12/07/20 16:16 Sodium 143 mmol/L (136-145) 12/15/20 04:30 Potassium 3.5 mmol/L (3.5-5.1) 12/15/20 04:30 BUN 15 mg/dL (7-18) 12/15/20 04:30 Creatinine 0.96 mg/dL (0.55-1.3) 12/15/20 04:30 Glucose 100 mg/dL (74-106) 12/15/20 04:30 Phosphorus 2.9 mg/dL (2.5-4.9) 12/12/20 04:21 Magnesium 1.7 mg/dL (1.8-2.4) L 12/15/20 04:30 Total Bilirubin 0.4 mg/dL (0.2-1.0) 12/15/20 04:30 AST 29 U/L (15-37) 12/15/20 04:30 ALT 104 U/L (12-78) H 12/15/20 04:30 Alkaline Phosphatase 190 U/L (45-117) H 12/15/20 04:30 Home Medications: Aspirin [Low Dose Aspirin EC] 81 mg PO DAILY 09/13/20 Divalproex ER [Depakote *ER] 250 mg PO DAILY 09/13/20 Docusate [Colace Cap*] 100 mg PO DAILY 09/13/20 Lisinopril [Zestril] 20 mg PO DAILY 09/13/20 Melatonin 5 mg PO BEDTIME 09/13/20 Nifedipine Xl [Procardia XL*] 60 mg PO BID 09/13/20 traMADol HCL [Ultram*] 50 mg PO BID 09/13/20 Acetaminophen [Tylenol] 650 mg PO TIDP PRN 09/22/20 Atorvastatin Calcium [Lipitor*] 40 mg PO BEDTIME 09/22/20 Divalproex ER [Depakote *ER] 500 mg PO BEDTIME 09/22/20 Linagliptin [Tradjenta] 5 mg PO DAILY 09/22/20 Omeprazole 20 mg PO DAILY 09/22/20 Oxybutynin Chloride [Ditropan*] 5 mg PO TID 09/22/20 Ascorbic Acid 500 mg PO DAILY 12/15/20 Bismuth Subsalicylate [Pepto-Bismol] 30 ml PO Q8H PRN 12/15/20 Hydralazine [Apresoline*] 25 mg PO BID* PRN 12/15/20 Loperamide HCl [Imodium A-D] 2 mg PO Q8HR PRN 12/15/20 Magnesium Chloride 2 tab PO DAILY 30 Days #60 tab 12/15/20 Metoprolol Tartrate [Lopressor*] 50 mg PO BID* 12/15/20 Potassium Chloride [Klor-Con M20] 20 meq PO DAILY 30 Days #30 tab.er.prt 12/15/20 Tramadol HCl [Ultram] 50 mg PO BEDTIME 12/15/20 Zinc Sulfate [Zinc Sulfate*] 220 mg PO DAILY 12/15/20 New Medications: Potassium Chloride [Klor-Con M20] 20 meq PO DAILY 30 Days #30 tab.er.prt Magnesium Chloride 2 tab PO DAILY 30 Days #60 tab Physician Discharge Instructions: You were found to have a mild pneumonia and urinary tract infection. You were treated with antibiotics and discharged with IV Meropenem for a total of 7 days - last day: 12/21. You were found to have right lower abdominal tenderness, and for evaluation you had an ultrasound and CT scan that revealed gallbladder stones and mild wall thickening. You did not have right upper abdominal tenderness, and General Surgery (Dr. Sanderson) recommended you continue antibiotics and follow up with him in 1 week in his office. Continue your home medications as previously prescribed. You were also found to be anemic with your hemoglobin around 8.0, due to your chronic diseases and low iron levels. You were given IV iron, and should have your iron levels rechecked in a few weeks. You were treated with oral vancomycin for possible c. diff infection, however your diarrhea improved just prior to starting the medication and your c.diff testing was negative for toxin, double checked by PCR as well. For this reason, the Vancomycin was discontinued. Recommend repeating a CBC and CMP + Magnesium in 3-5 days. Diet: ADA Activity: Fall precautions Followup: NONE,NONE [Primary Care Provider] -
--- NOTE | 2020-12-15 20:16 | P.PN ---
Subjective Date of Service: 12/15/20 Chief Complaint: AMS Subjective: No new changes (no new complaints, feeling well. asking when he will be discharged) Review of Systems 10-point ROS is otherwise unremarkable Physical Examination - Vital Signs Temperature: 99.1 F Blood Pressure: 161/74 Pulse: 69 Respirations: 20 Pulse Ox (%): 94 Assessment & Plan Physician Review Additional Text: Physical Exam General: Alert, NAD, confusion/dementia HEENT: Mucous membr. moist/pink Respiratory: Clear to auscultation bilaterally CV: Gastrointestinal: soft, mild TTP in RLQ Ext: mild edema of l hand/forearm from IV site / infiltration (improved) Neuro: R sided weakness, dimished sensation. LUE: intact sensation, 4+/5 strength. CN II-XII grossly intact Problem List: Pneumonia, community acquired UTI - cystitis GARY Metabolic Encephalopathy due to pneumonia/ UTI Metabolic acidosis Chronic anemia diarrhea appears to be at baseline, GARY resolved Urine culture is growing resistant strain E. coli. was on IV cefepime -switched to meropenem and due to the possible cholecystitis s/p 1u PRBC. Hgb stable so far, received IV Iron Wang catheter has been changed earlier in hospitalization Stool studies-stool WBC, culture and C.diff toxins - c diff Ab positive, toxin negative (possible carrier), started PO Vanc on 12/12 given continued diarrhea. PCR negative, can dc vanc LFTs improving, right upper quadrant ultrasound and CT abdomen with radiographic findings of acute cholecystitis. Patient without right upper quadrant pain/Shukla sign. consulted general surgery -reviewed imaging/labs, does not feel this is urgent/emergent need for cholecystectomy at this time. Recommended antibiotics for now, consider f/u in 1-2 weeks for elective cholecystectomy if pain persists PICC placed on 12/14, pt switched to meropenem - to cover resistant E.coli in urine, pneumonia, and possible cholecystitis Dispo: dc back to SNF - awaiting facility Time Spent Managing Pts Care (In Minutes): 35
[2020-12-15] MEDS: MELATONIN 5 MG TABLET PO SCH (21:24)
[2020-12-15] MEDS: ATORVASTATIN 20 MG TAB PO SCH (21:24)
[2020-12-15] MEDS: OXYBUTYNIN CHLORIDE 5 MG TAB PO SCH (21:24)
[2020-12-15] MEDS: CALCIUM CARBONATE CHEW 500MG TAB PO PRN (23:31)
[2020-12-16] MEDS: Meropenem 1,000 MG in NA CHLORIDE 0.9% 100 ML IV SCH ×3 (00:20→17:00)
[2020-12-16] MEDS: HYDRALAZINE HCL 20 MG/ML VIAL IV PRN (00:44)
[2020-12-16 05:24] LABS: Hematocrit 22.2 % (39.6-49.0); RBC Red Blood Cell Count 2.56 M/uL (4.33-5.43)
[2020-12-16 05:32] LABS: Magnesium 1.7 mg/dL (1.8-2.4); Potassium 3.4 mmol/L (3.5-5.1)
[2020-12-16 06:52] LABS: Albumin 2.2 g/dL (3.4-5.0); Bilirubin Direct 0.1 mg/dL (0-0.2); Bilirubin Total 0.5 mg/dL (0.2-1.0)
[2020-12-16] MEDS ORDERED: POTASSIUM CL SA 10 MEQ TAB PO ONE (07:30)
[2020-12-16] MEDS ORDERED: MAGNESIUM SULFATE 1 gm IVPB 1 GM/100 ML BAG IV ONE ×2 (07:30→13:00)
[2020-12-16] MEDS: INSULIN -REGULAR HUMAN 50 UNIT/0.5 ML ML SQ SCH ×4 (07:30→21:00)
[2020-12-16] MEDS: ASPIRIN EC 81 MG TAB PO SCH ×2 (09:00→10:58)
[2020-12-16] MEDS: DIVALPROEX ER 250 MG TAB PO SCH (09:00)
[2020-12-16] MEDS: OXYBUTYNIN CHLORIDE 5 MG TAB PO SCH ×3 (09:00→21:23)
[2020-12-16] MEDS: METOPROLOL TAR 50 MG TAB PO SCH ×2 (10:58→14:00)
[2020-12-16] MEDS: lisinopriL 20 MG TAB PO SCH (10:58)
--- NOTE | 2020-12-16 11:28 | P.PN ---
Subjective Date of Service: 12/16/20 Chief Complaint: AMS Subjective: Other ("don't feel as good today" - unable to be specific, states "i don't know, I just don't feel as good". Reports breathing comfortably, episode of diarrhea returned overnight. Having abdominal pain - feels it is better, inv olving right side of abomen, no nausea/vomiting, no bleeding) Review of Systems 10-point ROS is otherwise unremarkable Physical Examination - Vital Signs Temperature: 98.5 F Blood Pressure: 171/81 Pulse: 63 Respirations: 20 Pulse Ox (%): 95 Assessment & Plan Physician Review Additional Text: Physical Exam General: Alert, NAD, confusion/dementia HEENT: Mucous membr. moist/pink Respiratory: Clear to auscultation bilaterally, slightly diminished at baess CV: RRR, no murmur Abd: soft, mild TTP in RLQ and RUQ Ext: very mild edema of l hand/forearm from IV site / infiltration (improved) Neuro: R sided weakness, dimished sensation. LUE: intact sensation, 4+/5 strength. CN II-XII grossly intact Problem List: Pneumonia, community acquired UTI - cystitis GARY Metabolic Encephalopathy due to pneumonia/ UTI Metabolic acidosis Chronic anemia diarrhea appears to be at baseline, GARY resolved Urine culture is growing resistant strain E. coli. was on IV cefepime -switched to meropenem and due to the possible cholecystitis s/p 1u PRBC. Hgb stable so far, received IV Iron Wang catheter has been changed earlier in hospitalization Stool studies-stool WBC, culture and C.diff toxins - c diff Ab positive, toxin negative (possible carrier), started PO Vanc on 12/12 given continued diarrhea. PCR negative, dc'd vanc LFTs improving, right upper quadrant ultrasound and CT abdomen with radiographic findings of acute cholecystitis. Reports pain is improving, however now seems to be migrating to RUQ consulted general surgery -reviewed imaging/labs, does not feel this is urgent/emergent need for cholecystectomy at this time. Recommended antibiotics for now, consider f/u in 1-2 weeks for elective cholecystectomy if pain persists PICC placed on 12/14, pt switched to meropenem - to cover resistant E.coli in urine, pneumonia, and possible cholecystitis Slightly bigger drop in hemoglobin this morning, will recheck later this afternoon. Dispo: dc back to SNF once stable, likely in 1-2 days - awaiting facility Time Spent Managing Pts Care (In Minutes): 40
[2020-12-16 12:56] LABS: Hematocrit 22.6 % (39.6-49.0); MPV 7.1 fL (7.6-11.3); RBC Red Blood Cell Count 2.61 M/uL (4.33-5.43)
[2020-12-16] MEDS: POTASSIUM CL 40 MEQ in NA CHLORIDE 0.9% 500 ML IV SCH ×2 (13:27→18:40)
[2020-12-16] MEDS ORDERED: WATER FOR INJ,STERILE 0 ML ONE (21:16)
[2020-12-16] MEDS: MELATONIN 5 MG TABLET PO SCH (21:23)
[2020-12-16] MEDS: ATORVASTATIN 20 MG TAB PO SCH (21:23)
--- NOTE | 2020-12-16 22:55 | PN ---
Date of Progress Note: 12/16/2020 Subjective: The patient was admitted with acute kidney injury secondary to prerenal, secondary to GI loss, secondary to colitis with depletion potassium and magnesium. The patient was started on IV hydration, responding very well. Kidney function has been normalized. Hypokalemia on supplement. Physical Examination: Vital Signs: When I saw the patient, blood pressure 179/84, pulse of 73, afebrile. Chest: Clear to auscultation. Heart: S1, S2. Regular. Abdomen: Soft, nontender. Extremities: No edema. Neurological: Alert. No focal deficit. Laboratory Data: WBC 6.1, H and H 7.6/22.6. Sodium 142, potassium 3.6, bicarb 31, BUN 13, creatinine 0.8. Current Medications: The patient on include: 1. Meropenem. 2. Vancomycin. 3. Calcium carbonate. 4. Lisinopril. 5. Magnesium. Assessment And Plan: 1. Acute kidney injury secondary to prerenal, secondary to gastrointestinal loss, recovered, resolved. 2. Hypertension, controlled, not optimal. We are going to go ahead and switch to nifedipine and increase lisinopril. 3. Hypokalemia and hypomagnesemia, recovered. We will continue supplement. 4. Colitis/cholecystitis, as by primary. Continue current antibiotic. 5. Deconditioning. Continue PT, OT. Time spent discussing with the patient, examining the patient, exam [id number], placing order, discussing with staff and other consulting include Primary 45 minutes. HOMERO Voice ID: [id number] Report ID: [id number] [facility] HOSPITALTeddy
[2020-12-17] MEDS: Meropenem 1,000 MG in NA CHLORIDE 0.9% 100 ML IV SCH ×3 (01:06→16:53)
[2020-12-17 04:40] LABS: Absolute Lymphocytes (CBC) 1.3 K/uL (0.7-4.9); Basophils % 1.2 % (0-1.3); Hematocrit 22.3 % (39.6-49.0); Lymphocytes % 19.1 % (15.3-44.8); MPV 6.9 fL (7.6-11.3); RBC Red Blood Cell Count 2.58 M/uL (4.33-5.43)
[2020-12-17 04:56] LABS: Albumin 2.3 g/dL (3.4-5.0); Bilirubin Total 0.5 mg/dL (0.2-1.0); Potassium 4.5 mmol/L (3.5-5.1); Protein, Total 6.2 g/dL (6.4-8.2)
[2020-12-17] MEDS: INSULIN -REGULAR HUMAN 50 UNIT/0.5 ML ML SQ SCH ×3 (07:30→16:30)
[2020-12-17] MEDS: DIVALPROEX ER 250 MG TAB PO SCH (10:00)
[2020-12-17] MEDS: METOPROLOL TAR 50 MG TAB PO SCH ×2 (10:10→13:11)
[2020-12-17] MEDS: lisinopriL 20 MG TAB PO SCH (10:12)
[2020-12-17] MEDS: OXYBUTYNIN CHLORIDE 5 MG TAB PO SCH ×3 (10:12→22:30)
[2020-12-17] MEDS: ACETAMINOPHEN 500 MG TAB PO PRN (11:30)
[2020-12-17] MEDS ORDERED: FUROSEMIDE 20 MG/ 2ML VIAL IV ONE (12:22)
[2020-12-17] MEDS ORDERED: NA CHLORIDE 0.9% 250 ML IV SCH (13:00)
[2020-12-17] MEDS ORDERED: LOPERAMIDE HCL 2 MG CAPSULE PO PRN (13:11)
--- NOTE | 2020-12-17 14:58 | P.PN ---
Date of Service: 12/17/20 S: Patient says he feels okay, but still having is abdominal pain. Describes it as being in the right mid abdomen. Says it goes straight through to his back. O: Abdomen is soft, but does have some mild right upper quadrant abdominal tenderness. No palpable liver edge. A: Despite having his urinary tract infection covered with adequate antibiotics, the patient still complains of this abdominal discomfort. He does have documented stones on CT scan. History of bowel blood is 2.3. They say he could have possibly acute on chronic cholecystitis with cholelithiasis per CT scan. He still has failure to thrive. P: I have discussed with the patient. I will take him to the operating room in the morning for a laparoscopic cholecystectomy with a cholangiogram. The risks of this procedure have been discussed. The possibility of bleeding, infection, injury to bile ducts blood vessels intestines has been described. The possible need for an open and/or further surgeries and procedures was discussed. We will most likely do a liver biopsy at the same time to evaluate his hepatic function. He understands and wants us to proceed.
--- NOTE | 2020-12-17 15:11 | P.PN ---
Date of Service: 12/17/20
--- NOTE | 2020-12-17 16:57 | P.PN ---
Subjective Date of Service: 12/17/20 Chief Complaint: AMS Subjective: No new changes (reports doing well, continues with diarrhea - "food goes right through me" and states this is chronic for him, was taking imodium for years. having abdominal pain) Review of Systems 10-point ROS is otherwise unremarkable Physical Examination - Vital Signs Temperature: 98.0 F Blood Pressure: 132/63 Pulse: 67 Respirations: 20 Pulse Ox (%): 97 Assessment & Plan Physician Review Additional Text: Physical Exam General: Alert, NAD HEENT: Mucous membr. moist/pink Respiratory: Clear to auscultation bilaterally, slightly diminished at bases bilaterally CV: RRR, no murmur Abd: soft, mild TTP in RLQ and RUQ Problem List: Acute on Chronic cholecystitis Pneumonia, community acquired UTI - cystitis GARY Metabolic Encephalopathy due to pneumonia/ UTI Metabolic acidosis Chronic anemia diarrhea appears to be at baseline, GARY resolved Urine culture is growing resistant strain E. coli. was on IV cefepime -switched to meropenem and due to the possible cholecystitis s/p 1u PRBC. Hgb stable so far, received IV Iron - will transfuse another unit of blood today since patient will be going to OR tomorrow Wang catheter has been changed earlier in hospitalization Stool studies-stool WBC, culture and C.diff toxins - c diff Ab positive, toxin negative (possible carrier), started PO Vanc on 12/12 given continued diarrhea. PCR negative, dc'd vanc restart home imodium LFTs improving, right upper quadrant ultrasound and CT abdomen with radiographic findings of acute cholecystitis. pain now migrating to RUQ, seems more tender consulted general surgery - initial plan was to delay surgery until in better health condition, but patient is becoming more symptomatic Plan to go to the OR tomorrow. PICC placed on 12/14, pt switched to meropenem - to cover resistant E.coli in urine, pneumonia, and possible cholecystitis Dispo: dc back to SNF once stable, likely in 1-2 days Time Spent Managing Pts Care (In Minutes): 35
--- NOTE | 2020-12-17 19:24 | PN ---
Subjective: The patient is lying in bed. Complains of right upper quadrant discomfort. The patient is about to go for cholecystectomy by surgical team here. No other complaints. Objective: Vital Signs: Temperature 98, pulse 67, respirations 20, blood pressure 132/63. Lungs: Basal crackles. Heart: S1, S2. Regular. Abdomen: Right upper quadrant discomfort. Extremities: No edema. Laboratory Data: WBC 6.8, hemoglobin 7.7, platelets are 348. Chemistry shows sodium 141, potassium 4.5, chloride 108, bicarb 29, BUN 12, creatinine 0.8, glucose 89. Micro data shows E coli in the uri ne on 12/07. The patient is currently getting meropenem. Assessment And Plan: 1.Acute cholecystitis. Currently being covered with meropenem. 2.Urinary tract infection secondary to Escherichia coli. Also covered by meropenem. Continue supportive care and current treatment. No new recommendation at this time. We will follow the patient as needed. NF/MODL Voice ID: [id number] Report ID: [id number]
[2020-12-17] MEDS: ATORVASTATIN 20 MG TAB PO SCH (22:30)
[2020-12-17] MEDS: MELATONIN 5 MG TABLET PO SCH (22:30)
--- NOTE | 2020-12-17 22:54 | PN ---
Date of Progress Note: 12/17/2020 Chief Complaint: Acute kidney injury secondary to prerenal azotemia complicated by nonoliguric acute tubular necrosis. Subjective: The patient developed acute kidney injury secondary to GI fluid loss and was found to petersen ve colitis with potassium and magnesium normal. The patient was started on IV fluids for hydration. Potassium and magnesium were replaced. Hypokalemia is gradually resolving. Review of Systems: Denies PND or orthopnea. Physical Examination: Lungs: Diminished breath sounds at bases. Heart: S1, S2. Abdomen: Soft, benign. Extremities: No edema. Laboratory Data: BUN 13, creatinine 0.8, sodium 142, potassium 3.6, bicarbonate 31. Impression And Plan: 1.Acute kidney injury secondary to prerenal azotemia. Gastrointestinal loss was a culprit for volum e depletion and renal hypoperfusion, which was leading to acute kidney injury. Currently, the patien t is on adequate hydration and renal function has improved to baseline. Electrolytes are stabilizing . 2.Hypokalemia and hypomagnesemia, replaced and stable. 3.Colitis and cholecystitis per primary team. The patient is on antibiotics. Adjust antibiotics to renal dose. 4.Hypertension, controlled, optimal. The patient is on nifedipine and lisinopril dose was increased. Monitor electrolytes when the patient is on lisinopril. EB/MODL Voice ID: [id number] Report ID: [id number]
[2020-12-17] MEDS ORDERED: NA CHLORIDE 0.9% 250 ML ONE (23:48)
[2020-12-18] MEDS: Meropenem 1,000 MG in NA CHLORIDE 0.9% 100 ML IV SCH ×3 (02:06→16:24)
[2020-12-18] MEDS: INSULIN -REGULAR HUMAN 50 UNIT/0.5 ML ML SQ SCH ×3 (07:30→16:30)
[2020-12-18] MEDS ORDERED: NA CHLORIDE 0.9% 1,000 ML ONE (08:26)
[2020-12-18 08:35] LABS: Absolute Lymphocytes (CBC) 1.4 K/uL (0.7-4.9); Hematocrit 26.8 % (39.6-49.0); Lymphocytes % 20.4 % (15.3-44.8); MPV 7.1 fL (7.6-11.3); RBC Red Blood Cell Count 3.08 M/uL (4.33-5.43)
[2020-12-18] MEDS: OXYBUTYNIN CHLORIDE 5 MG TAB PO SCH ×3 (09:00→23:21)
[2020-12-18] MEDS: DIVALPROEX ER 250 MG TAB PO SCH (09:00)
[2020-12-18] MEDS: ASPIRIN EC 81 MG TAB PO SCH (09:00)
[2020-12-18] MEDS: METOPROLOL TAR 50 MG TAB PO SCH ×2 (09:00→14:00)
[2020-12-18] MEDS: lisinopriL 20 MG TAB PO SCH (09:00)
[2020-12-18] MEDS ORDERED: MIDAZOLAM HCL 2 MG/2 ML INJ ONE (09:30)
[2020-12-18] MEDS ORDERED: EPHEDRINE SULF 50 MG/ML VIAL ONE (09:30)
[2020-12-18] MEDS ORDERED: LIDOCAINE 2% MPF 5 ML VIAL ONE (09:30)
[2020-12-18] MEDS ORDERED: FENTANYL CITR 100 MCG/2 ML ONE ×2 (09:30→10:14)
[2020-12-18] MEDS ORDERED: ROCURONIUM 50 MG/5 ML VIAL IV ONE ×2 (09:30→09:32)
[2020-12-18] MEDS ORDERED: propofoL 200 MG/20 ML VIAL IV ONE (09:30)
--- NOTE | 2020-12-18 10:27 | P.PN ---
Patient is out for surgery-unable to see. Will reassess tomorrow. Chart reviewed today.
[2020-12-18] MEDS ORDERED: ONDANSETRON 4 MG/2 ML VIAL ONE (10:31)
[2020-12-18] MEDS ORDERED: GLYCOPYRROLATE 0.2 MG/ML SYR ONE (10:37)
[2020-12-18] MEDS: FENTANYL CITR 100 MCG/2 ML ONE ×2 (10:50→10:58)
--- NOTE | 2020-12-18 10:56 | P.OP ---
Preoperative diagnosis: Acute on chronic cholecystitis with cholelithiasis Postoperative diagnosis: The same Primary procedure: Laparoscopic cholecystectomy Secondary procedure: Cholangiogram Other procedure(s): Biopsy of the right lobe of the liver Anesthesia: General Estimated blood loss: Less than 20 cc Specimen: 1 gallbladder, 1 liver biopsy (right lobe of the liver) Operative Technique: The patient was brought to the operating room placed supine on the table. After the induction of adequate general endotracheal anesthesia, the area of the abdomen is prepped with a DuraPrep solution, and draped in the usual aseptic manner. A subumbilical incision was made. This brought down through the skin and subcutaneous tissue. The Visiport was used to enter the peritoneal cavity and create a pneumoperitoneum to approximately 12 mm of mercury. Under direct vision a 5 mm trocar was placed in the upper midline, and 2 other 5 mm trocars on the right lateral side. The patient was then placed in reverse Trendelenburg and rolled towards the interlocking machine operator's side. We could see an acutely inflamed gallbladder. There were adhesions of the omentum to the serosal surface. These were gently taken down using blunt sharp dissection. It was noticeable disease amount of congestion in the fat around Taylor's pouch. The liver itself also showed areas of possible early cirrhosis. We did see some neovascularity around Taylor's pouch. A grasper was placed on the fundus of the gallbladder. Another 1 was placed down by Taylor's pouch. Applying lateral traction we were able to dissect and expose the cystic duct and artery. The artery was dealt with 1st. It was clipped and divided in the usual manner. A clip was then placed between the gallbladder and the cystic duct. An opening was made into the cystic duct. We attempted then to pass the cholangiocath into the cystic duct. Having done so, we could see in flow contrast into the duodenum. We also passed the catheter with the balloon deflated down into the duodenum itself. The catheter was removed. Clips were now placed on the distal portion of the cystic duct. The cystic duct was then divided. The gallbladder was now dissected free from the liver bed, placed into an Endo-Catch, and brought out through the umbilical trocar site. Due to the thickness of the gallbladder itself, it was necessary to open the umbilical fascia slightly to allow the egress of the Endo-Catch and contents. We did see some known from dilated blood vessels consistent with some neovascularization. The gallbladder fossa was inspected to ensure adequate hemostasis. It was irrigated with a saline solution and the irrigant aspirated from the peritoneal cavity. 0.25% Marcaine was aerosolized into the right upper quadrant and the gallbladder fossa. Attention was now turned towards the right limb of the liver. A skin incision was made. Through this we passed the Farooq-Cut biopsy needle. A biopsy of the right lobe of the liver was taken. This was sent for histopathology. The umbilical trocar site was now approximated with an Endo Close and an absorbable sutures. The pneumoperitoneum was then collapsed, the suture tied, and dot applied to the skin. A further 0.25% Marcaine was injected around are incision sites. We also looked around the peritoneal cavity. We Dc the patient does have a large distended bladder at this time. We will do a straight cath at the end of the procedure. At the end of the procedure the patient was in a stable condition when sent to the recovery room. Needle sponge instrument count were correct. 1 specimen was sent for histopathology. Complications: None Transferred to: Recovery Room Condition: Good
[2020-12-18] MEDS ORDERED: NEOSTIGMINE 1 MG/ML -5 ML ONE (10:59)
--- NOTE | 2020-12-18 11:04 | RAD REPORT ---
EXAM DESCRIPTION: RADCholangiogram Oper-Xray Or12/18/2020 10:50 am CLINICAL HISTORY: Abdominal pain FINDINGS: The examination was performed by Dr. Sanderson. The cystic duct was cannulated and contrast administered. Contrast flowed into the duodenum. The bile duct is dilated. One fluoroscopic spot images obtained. Fluoroscopy time 0.5 minutes
[2020-12-18] MEDS ORDERED: LABETALOL 20 MG/4ML SYRINGE IV ONE (11:22)
[2020-12-18] MEDS ORDERED: PROMETHAZINE INJ 25 MG/ML AMP ONE (11:30)
[2020-12-18] MEDS ORDERED: HYDROMORPHONE HCL 1 MG/ML INJ ONE (11:30)
[2020-12-18] MEDS: ACETAMINOPHEN 500 MG TAB PO PRN (15:52)
[2020-12-18] MEDS ORDERED: MORPHINE 2 MG/ML SYR IV ONE (17:00)
--- NOTE | 2020-12-18 17:59 | P.PN ---
Subjective Date of Service: 12/18/20 Chief Complaint: AMS Patient is status post lap cholecystectomy today. He is complaining of right shoulder pain. Physical Examination - Vital Signs Temperature: 97.3 F Blood Pressure: 96/58 Pulse: 83 Respirations: 20 Pulse Ox (%): 96 - Physical Exam General: Alert, In no apparent distress, Oriented x3 HEENT: Mucous membr. moist/pink Neck: JVD not distended Respiratory: Clear to auscultation bilaterally, Normal air movement Cardiovascular: No edema, Regular rate/rhythm, Normal S1 S2 Gastrointestinal: Normal bowel sounds, Soft and benign, No tenderness Musculoskeletal: No swelling, No tenderness Integumentary: No rashes Neurological: Other (No focal motor deficit) Assessment And Plan - Current Problems (Diagnosis) (1) Pneumonia Current Visit: Yes Status: Acute (2) Acute kidney injury Current Visit: No Status: Acute (3) Metabolic encephalopathy Current Visit: Yes Status: Acute (4) UTI (urinary tract infection) Current Visit: No Status: Suspected Qualifiers: Urinary tract infection type: site unspecified Hematuria presence: without hematuria Qualified Code(s): N39.0 - Urinary tract infection, site not specified (5) Metabolic acidosis Current Visit: Yes Status: Acute (6) Chronic anemia Current Visit: Yes Status: Acute (7) Diarrhea Current Visit: Yes Status: Acute (8) Acute cholecystitis Current Visit: Yes Status: Acute Physician Review: Patient Assessed, Agree with Above Assessment and Plan Physician Review Additional Text: Problem List: Acute on Chronic cholecystitis Pneumonia, community acquired UTI - cystitis GARY Metabolic Encephalopathy due to pneumonia/ UTI Metabolic acidosis Chronic anemia diarrhea GARY resolved Urine culture is growing resistant strain E. coli. was on IV cefepime -switched to meropenem and due to the possible cholecystitis s/p 1u PRBC. Hgb stable so far, received IV Iron Wang catheter has been changed earlier in hospitalization Stool studies-stool WBC, culture and C.diff toxins - c diff Ab positive, toxin negative (possible carrier), started PO Vanc on 12/12 given continued diarrhea. PCR negative. Vancomycin discontinued. Status post lap cholecystectomy, Liver biopsy and cholangiogram. Cholangiogram was unremarkable. General surgery input appreciated. PICC placed on 12/14, continue meropenem - to cover resistant E.coli in urine, pneumonia, and possible cholecystitis per ID recommendation. Pain management as needed.
--- NOTE | 2020-12-18 19:13 | RAD REPORT ---
EXAM DESCRIPTION: Shoulder Right 2 View - 12/18/2020 6:53 pm CLINICAL HISTORY: Right shoulder pain. COMPARISON: No comparisons TECHNIQUE: Internal and external rotation views of the right shoulder were obtained. FINDINGS: There is no fracture or dislocation. AC joint degenerative change present with inferiorly directed spurring from both the clavicle and the acromion. The acromial humeral joint space is narro wed. Chronic rotator cuff tear may well be present. No suspicious soft tissue calcifications. No acut e or destructive process seen. Right-sided Port-A-Cath is in place. Lung parenchymal opacification is present but not adequately ass essed on this study. IMPRESSION: No fracture or acute right shoulder abnormality. AC joint degenerative spurring and acromial humeral joint space degenerative change that may reflect chronic rotator cuff tear.
[2020-12-18] MEDS: MORPHINE 2 MG/ML SYR IV PRN (23:09)
[2020-12-18] MEDS: ATORVASTATIN 20 MG TAB PO SCH (23:13)
[2020-12-18] MEDS: MELATONIN 5 MG TABLET PO SCH (23:13)
[2020-12-19] MEDS: Meropenem 1,000 MG in NA CHLORIDE 0.9% 100 ML IV SCH ×3 (00:53→17:00)
--- NOTE | 2020-12-19 01:32 | PN ---
Date of Progress Note: 12/18/2020 Subjective: The patient was admitted with acute kidney injury secondary to prerenal, secondary to colitis, GI loss, poor intake. The patient found to have cholecystitis status post colostomy today, tolerated the procedure. The patient is to start diet. Physical Examination: Vital Signs: Blood pressure 96/58, pulse of 83 afebrile. The patient had good urine output. Chest: Clear to auscultation. Heart: S1, S2, regular. Abdomen: Mild tenderness on the right upper quadrant. No guarding or rebound. Clean scar. Extremities: No edema. Neurologic: Alert and oriented x3. No focal. Laboratory Data: WBC 6.8, H and H 8.9/26.8. Sodium 141, potassium 4.5, bicarb 29, BUN 12, creatinine 0.8, calcium 8.1, magnesium of 2. Current Medications: The patient on include, 1. Aspirin. 2. Meropenem. 3. Hydralazine. 4. Lisinopril 20. 5. Metoprolol. 6. Loperamide. 7. Zofran. 8. Melatonin. Assessment And Plan: 1. Acute kidney injury secondary to prerenal, recovered, resolved. 2. Urinary tract infection secondary to E. coli. Continue on meropenem. 3. Cholecystitis. Continue meropenem. Follow up with primary and Surgery. 4. Hypokalemia, hypomagnesemia status post supplement, resolved. 5. Hypertension, currently blood pressure on the lower side. The patient is status post surgery. I am going to go ahead and hold his lisinopril, decrease metoprolol to 25 mg to avoid any further hypertension and we will monitor the patient closely. Time spent discussing with the patient, examining the patient, exam [id number], placing order, discussing with staff and other consulting include Primary 45 minutes. HOMERO Voice ID: [id number] Report ID: [id number] DOM
[2020-12-19] MEDS: MORPHINE 2 MG/ML SYR IV PRN ×3 (04:22→22:26)
[2020-12-19 05:46] LABS: Absolute Lymphocytes (CBC) 0.8 K/uL (0.7-4.9); Basophils % 0.6 % (0-1.3); Hematocrit 25.5 % (39.6-49.0); Lymphocytes % 10.4 % (15.3-44.8); MPV 7.1 fL (7.6-11.3); RBC Red Blood Cell Count 2.92 M/uL (4.33-5.43)
[2020-12-19 06:09] LABS: Albumin 2.4 g/dL (3.4-5.0); Bilirubin Total 0.8 mg/dL (0.2-1.0); Potassium 4.1 mmol/L (3.5-5.1); Protein, Total 6.5 g/dL (6.4-8.2)
[2020-12-19] MEDS: INSULIN -REGULAR HUMAN 50 UNIT/0.5 ML ML SQ SCH ×4 (07:30→21:00)
[2020-12-19] MEDS: OXYBUTYNIN CHLORIDE 5 MG TAB PO SCH ×3 (09:00→20:35)
--- NOTE | 2020-12-19 10:02 | P.PN ---
Subjective Date of Service: 12/19/20 Chief Complaint: AMS Patient seen and examined at bedside s/p lap cholecystectomy. Patient states he is having some adbominal paina nd right shoulder pain-shoulder xray completed this AM. he denies N/V/D. He states that he has yet to have a BM s/p surgery but is passing gas. Review of Systems Respiratory: Cough Gastrointestinal: Abdominal Pain Musculoskeletal: Shoulder Pain (right ) Physical Examination - Vital Signs Temperature: 97.5 F Blood Pressure: 177/81 Pulse: 66 Respirations: 16 Pulse Ox (%): 97 - Physical Exam General: Alert, Oriented x3 HEENT: Atraumatic, Normocephalic Neck: Supple, 2+ carotid pulse no bruit, JVD not distended Respiratory: Clear to auscultation bilaterally, Normal air movement Cardiovascular: Regular rate/rhythm, Normal S1 S2 Capillary refill: <2 Seconds Gastrointestinal: Other (slightly dstended. Incision sites cover with bandaids- clean and dry wiht no drainge or sign of infection. ) Musculoskeletal: No clubbing, No swelling, No contractures Integumentary: No rashes, No breakdown, No significant lesion Urinary: Wang catheter External genitalia: Deferred Rectal: No tenderness, Deferred - Studies Laboratory Last Values WBC 14.00 K/uL (4.3-10.9) H 12/07/20 16:16 RBC 3.22 M/uL (4.33-5.43) L 12/07/20 16:16 Hgb 9.1 g/dL (13.6-17.9) L 12/07/20 16:16 Hct 28.2 % (39.6-49.0) L 12/07/20 16:16 MCV 87.7 fL (80-100) D 12/07/20 16:16 MCH 28.4 pg (27.0-35.0) 12/07/20 16:16 MCHC 32.3 g/dL (32.0-36.0) 12/07/20 16:16 RDW 16.1 % (12.1-15.2) H 12/07/20 16:16 Plt Count 233 K/uL (152-406) 12/07/20 16:16 MPV 8.3 fL (7.6-11.3) 12/07/20 16:16 Neutrophils % 77.4 % (41.7-73.7) H 12/07/20 16:16 Lymphocytes % 11.5 % (15.3-44.8) L 12/07/20 16:16 Monocytes % 10.5 % (3.3-12.3) 12/07/20 16:16 Eosinophils % 0.2 % (0-4.4) 12/07/20 16:16 Basophils % 0.4 % (0-1.3) 12/07/20 16:16 Absolute Neutrophils 10.9 K/uL (1.8-8.0) H 12/07/20 16:16 Absolute Lymphocytes 1.6 K/uL (0.7-4.9) 12/07/20 16:16 Absolute Monocytes 1.5 K/uL (0.1-1.3) H 12/07/20 16:16 Absolute Eosinophils 0.0 K/uL (0-0.5) 12/07/20 16:16 Absolute Basophils 0.1 K/uL (0-0.5) 12/07/20 16:16 PT 12.3 SECONDS (9.5-12.5) 12/07/20 16:16 INR 1.07 12/07/20 16:16 APTT 26.0 SECONDS (24.3-36.9) 12/07/20 16:16 Sodium 136 mmol/L (136-145) 12/07/20 16:16 Potassium 5.0 mmol/L (3.5-5.1) 12/07/20 16:16 Chloride 105 mmol/L (98-107) 12/07/20 16:16 Carbon Dioxide 14 mmol/L (21-32) L* 12/07/20 16:16 BUN 116 mg/dL (7-18) H 12/07/20 16:16 Creatinine 5.56 mg/dL (0.55-1.3) H* 12/07/20 16:16 Estimated GFR 10 mL/min (=/>90) L 12/07/20 16:16 Glucose 138 mg/dL (74-106) H 12/07/20 16:16 Lactic Acid 1.8 mmol/L (0.4-2.0) 12/07/20 16:16 Calcium 7.7 mg/dL (8.5-10.1) L 12/07/20 16:16 Total Bilirubin 0.7 mg/dL (0.2-1.0) 12/07/20 16:16 Direct Bilirubin 0.2 mg/dL (0-0.2) 12/07/20 16:16 AST 6 U/L (15-37) L 12/07/20 16:16 ALT 13 U/L (12-78) 12/07/20 16:16 Alkaline Phosphatase 75 U/L (45-117) 12/07/20 16:16 Creatine Kinase 22 U/L (39-308) L 12/07/20 16:16 Rapid Troponin I < 0.02 ng/mL (0.0-0.045) 12/07/20 16:16 Serum Total Protein 7.2 g/dL (6.4-8.2) 12/07/20 16:16 Albumin 2.7 g/dL (3.4-5.0) L 12/07/20 16:16 Globulin 4.5 g/dL (2.3-3.5) H 12/07/20 16:16 Albumin/Globulin Ratio 0.6 (1.1-1.8) L 12/07/20 16:16 Procalcitonin 0.55 ng/mL (<0.050) H 12/07/20 16:16 Urine pH 5.0 (5.0-7.0) 12/07/20 18:32 Ur Specific [place] 1.025 (1.005-1.030) 12/07/20 18:32 Glucose (UA)(Auto) Negative (NEG) 12/07/20 18:32 Urine Ketones Negative (NEG) 12/07/20 18:32 Urine Blood 2+ (NEG) H 12/07/20 18:32 Urine Nitrite Negative (NEG) 12/07/20 18:32 Ur Leukocyte Esterase 3+ (NEG) H 12/07/20 18:32 Urine RBC 20-50 /HPF (NONE SEEN) H 12/07/20 18:19 Urine WBC >50 /HPF (<5) H 12/07/20 18:19 Ur Squamous Epith Cells <5 /HPF (NONE SEEN) 12/07/20 18:19 Amorphous Sediment 3+ /HPF (NONE SEEN) H 12/07/20 18:19 Urine Bacteria >50 /HPF (NONE SEEN) H 12/07/20 18:19 Urine Culture Reflexed Not needed 12/07/20 18:19 Ur Random Sodium 24 mmol/L (27-287) L 12/07/20 04:26 Urine Creatinine 109.0 mg/dL (20-370) 12/07/20 04:26 Urine Total Protein 2+ (NEG) H 12/07/20 18:32 SARS-CoV-2 RNA (RT-PCR) Negative (NEGATIVE) 12/07/20 16:48 Assessment And Plan - Plan Assessment: 1.acute choleysitis s/p cholecystectomy 2.UTI secondary to E.coli 3. anemia 4. Dm type 2 Plan: 1. Continue current antibiotic. Patient tolerating merum well. Incision sites on abdomen are clean and dry with no clinical signs of infection. 2. Repeat UA ordered. Continue current antibiotic. -medical management per primary team -continue to monitor CBC and BMP -continue to monitor for signs of infection. Plan of care discussed with Dr. Morgan. Thank you for consultation. Physician Review: Patient Assessed, Agree with Above Assessment and Plan
[2020-12-19] MEDS: ASPIRIN EC 81 MG TAB PO SCH (10:22)
[2020-12-19] MEDS: METOPROLOL TAR 25 MG TAB PO SCH ×2 (10:22→16:58)
[2020-12-19] MEDS: DIVALPROEX ER 250 MG TAB PO SCH (10:22)
--- NOTE | 2020-12-19 13:47 | P.PN ---
Subjective Date of Service: 12/19/20 Chief Complaint: AMS Subjective: No new changes Review of Systems is unable to be obtained Physical Examination - Vital Signs Temperature: 97.5 F Blood Pressure: 141/74 Pulse: 63 Respirations: 20 Pulse Ox (%): 95 - Physical Exam General: Alert, In no apparent distress HEENT: Atraumatic, Normocephalic Neck: Supple Respiratory: Clear to auscultation bilaterally Cardiovascular: Regular rate/rhythm, Normal S1 S2 Capillary refill: <2 Seconds Gastrointestinal: Soft and benign, W/out hepatosplenomegaly Musculoskeletal: No clubbing Integumentary: No rashes, Tenderness/swelling Neurological: Other (Alert, Awake ) Lymphatics: No axilla or inguinal lymphadenopathy Assessment & Plan - Problems (Diagnosis) (1) Acute cholecystitis Current Visit: Yes Status: Acute (2) Chronic anemia Current Visit: Yes Status: Acute (3) Metabolic acidosis Current Visit: Yes Status: Acute (4) Metabolic encephalopathy Current Visit: Yes Status: Acute (5) Acute kidney injury Current Visit: No Status: Acute Physician Review: Patient Assessed, Agree with Above Assessment and Plan Physician Review Additional Text: Assessment and Plan Acute on Chronic cholecystitis Pneumonia, community acquired UTI - cystitis GARY Metabolic Encephalopathy due to pneumonia/ UTI Metabolic acidosis Chronic anemia diarrhea Monitor under telemetry Renal parameters monitored and is improving GARY resolved Urine culture is growing resistant strain E. coli. was on IV cefepime -switched to meropenem and due to the possible cholecystitis Appreciate help from ID Appreciate help from surgery monitor CBC daily Hemoglobin monitored Received blood transfusion Within monitor H&H and transfuse p.r.n. Wang catheter has been changed earlier in hospitalization Stool studies-stool WBC, culture and C.diff toxins - c diff Ab positive, toxin negative (possible carrier), started PO Vanc on 12/12 given continued diarrhea. PCR negative. Vancomycin discontinued. Status post lap cholecystectomy, Liver biopsy and cholangiogram. Cholangiogram was unremarkable. General surgery input appreciated. PICC placed on 12/14, continue meropenem - to cover resistant E.coli in urine, pneumonia, and possible cholecystitis per ID recommendation. Pain management as needed. Awaiting further recommendations from ID and surgery Time Spent Managing Pts Care (In Minutes): 42
--- NOTE | 2020-12-19 15:43 | PN ---
Date of Progress Note: 12/19/2020 Subjective: The patient was admitted with colitis, acute kidney injury secondary to prerenal. The patient's kidney function has been normalized. Had cholecystitis, status post colostomy. Physical Examination: Vital Signs: Blood pressure 141/74, pulse of 63, afebrile. Chest: Clear to auscultation. Heart: S1, S2. Systolic murmur. Abdomen: Soft. Mild tenderness on the right upper quadrant. Extremities: No edema. Neurologic: Alert. No focality. Laboratory Data: WBC 8.1, H and H 8.6/25.5. Sodium 143, potassium 4.1, bicarb 28, BUN 17, creatinine 1.1, GFR of 66, calcium 7.6. Current Medications: The patient on include; 1. Meropenem. 2. Aspirin. 3. Calcium carbonate. 4. Atorvastatin. 5. Metoprolol 25. 6. Tylenol. 7. Zofran. 8. Loperamide. Assessment And Plan: 1. Acute kidney injury secondary to prerenal, recovered, resolved. Keep holding IV fluid. 2. Hypertension, controlled, optimal. Continue current medication. 3. Urinary tract infection secondary to Escherichia coli. Continue meropenem. 4. Cholecystitis, status post surgery. We will follow up with Surgery. Time spent discussing with the patient, examining the patient, exam [id number], placing order, discussing with staff and other consulting include Primary 45 minutes. HOMERO Voice ID: [id number] Report ID: [id number] DOM
[2020-12-19] MEDS: ATORVASTATIN 20 MG TAB PO SCH (20:35)
[2020-12-19] MEDS: MELATONIN 5 MG TABLET PO SCH (20:35)
[2020-12-19] MEDS ORDERED: HYDRALAZINE HCL 20 MG/ML VIAL IV PRN (21:20)
[2020-12-20] MEDS: Meropenem 1,000 MG in NA CHLORIDE 0.9% 100 ML IV SCH ×3 (01:52→17:01)
[2020-12-20] MEDS: MORPHINE 2 MG/ML SYR IV PRN ×3 (04:16→20:55)
[2020-12-20] MEDS: INSULIN -REGULAR HUMAN 50 UNIT/0.5 ML ML SQ SCH ×3 (07:30→20:51)
[2020-12-20] MEDS: ASPIRIN EC 81 MG TAB PO SCH (08:34)
[2020-12-20] MEDS: METOPROLOL TAR 25 MG TAB PO SCH ×2 (08:34→16:59)
[2020-12-20] MEDS: OXYBUTYNIN CHLORIDE 5 MG TAB PO SCH ×3 (08:36→20:56)
[2020-12-20] MEDS: DIVALPROEX ER 250 MG TAB PO SCH (08:44)
--- NOTE | 2020-12-20 12:45 | PN ---
Date of Progress Note: 12/20/2020 Subjective: The patient was admitted with colitis, cholecystitis, status post colostomy. The patien t tolerated the procedure very well. The patient had acute kidney injury secondary to prerenal recov ered. The patient had depletion in his potassium and magnesium, status post supplement. Objective: Vital Signs: Blood pressure 141/73, pulse of 63, afebrile. Chest: Clear to auscultation. Heart: S1 and S2 regular. Abdomen: Mild tenderness on the right upper quadrant. Extremities: No edema. Neurologic: Alert. No focality. Laboratory Data: WBC 8.1, H and H 8.6/25.5. Sodium 143, potassium 4.1, bicarb 28, BUN 17, creatinin e 1.1, calcium 7.6. Current Medications: The patient on it's include meropenem, aspirin, atorvastatin, metoprolol 25 b.i .d., loperamide, and melatonin. Assessment/plan: 1.Acute kidney injury secondary to prerenal, recovered, resolved. 2.Urinary tract infection secondary to Escherichia coli. Continue current antibiotic. 3.Cholecystitis, status post surgery. We will follow up with Surgery. 4.Hypokalemia and hypomagnesemia, status post supplement, resolve. 5.Colitis, cholecystitis. As by primary and Surgery. CHRISTIANA/JOSE MANUEL Voice ID: [id number] Report ID: [id number]
--- NOTE | 2020-12-20 14:40 | P.DS ---
Admission Date: 12/07/20 Discharge Date: 12/21/20 Disposition: TRANSFER TO SNF - MEDICAL Discharge Condition: FAIR Reason for Admission: AMS - Problems (1) Pneumonia Current Visit: Yes Status: Acute (2) Acute kidney injury Current Visit: No Status: Acute (3) Metabolic encephalopathy Current Visit: Yes Status: Acute (4) UTI (urinary tract infection) Current Visit: No Status: Suspected Qualifiers: Urinary tract infection type: site unspecified Hematuria presence: without hematuria Qualified Code(s): N39.0 - Urinary tract infection, site not specified (5) Metabolic acidosis Current Visit: Yes Status: Acute (6) Chronic anemia Current Visit: Yes Status: Acute (7) Diarrhea Current Visit: Yes Status: Acute (8) Acute cholecystitis Current Visit: Yes Status: Acute Brief History of Present Illness: 64-year-old gentleman with a history of hypertension, coronary artery disease, congestive heart failure, status post AICD, dementia, chronic urinary retention with indwelling Wang catheter was brought to the emergency department because of progressive lethargy and weakness. Patient could not provide any history. He is a poor historian. His blood pressure was borderline hypotensive. His serum creatinine elevated to 5.6. CT abdomen showed possible right basilar infiltrate. Patient was admitted for further management of pneumonia and acute renal failure. Hospital Course: Patient admitted to the medical floor and started on IV hydration. He was also placed on antibiotics for pneumonia. His urinalysis suggested the presence of UTI. Urine culture grew E. coli resistant to multiple antibiotics but sensitive to cefepime, meropenem and Bactrim. Antibiotics was changed to IV cefepime and later changed to IV meropenem. Patient received about 2 weeks of IV antibiotics. GARY resolved with IV hydration. Urine culture is growing resistant strain E. coli. was on IV cefepime -switched to meropenem and due to the possible cholecystitis. His hemoglobin dropped to 7.0. Patient was given 2u PRBC transfusion and IV iron. His hemoglobin improved and currently stable around 8. Patient experienced hiccups. Right upper quadrant sonogram done suggested gallstones with gallbladder thickening. Patient was seen by general surgery Dr. Sanderson and he underwent laparoscopic cholecystectomy and cholangiogram. Cholangiogram was unremarkable. He was seen by infectious disease-Dr. Morgan who recommended IV meropenem to treat both the E. coli UTI and also to cover for any possible gallbladder infection. Wang catheter was been changed earlier in hospitalization. It was again changed during the lap cholecystectomy. Patient had diarrhea and was briefly treated with oral vancomycin for possible C.diff. Vancomycin was discontinued when his stool for C. diff toxin resulted negative. Status post lap cholecystectomy, Liver biopsy is pending. PICC placed on 12/14, for IV antibiotics. Patient condition clinically improved. Infectious disease recommended Bactrim and Flagyl as outpatient to continue treatment for the UTI. Patient deemed stable for discharge. Vital Signs/Physical Exam: Temp Pulse Resp BP Pulse Ox 97.7 F 61 20 170/81 H 96 12/20/20 12:00 12/20/20 12:00 12/20/20 12:00 12/20/20 12:00 12/20/20 12:00 General: Alert, In no apparent distress, Oriented x3 HEENT: Mucous membr. moist/pink Neck: JVD not distended Respiratory: Clear to auscultation bilaterally, Normal air movement Cardiovascular: No edema, Regular rate/rhythm, Normal S1 S2 Gastrointestinal: Soft and benign, Non-distended Musculoskeletal: No swelling Integumentary: No rashes Neurological: Other (No focal motor deficit.) Laboratory Data at Discharge: WBC 8.10 K/uL (4.3-10.9) D 12/19/20 05:22 Hgb 8.6 g/dL (13.6-17.9) L 12/19/20 05:22 Hct 25.5 % (39.6-49.0) L 12/19/20 05:22 Plt Count 350 K/uL (152-406) 12/19/20 05:22 PT 12.3 SECONDS (9.5-12.5) 12/07/20 16:16 INR 1.07 12/07/20 16:16 APTT 26.0 SECONDS (24.3-36.9) 12/07/20 16:16 Sodium 143 mmol/L (136-145) 12/19/20 05:22 Potassium 4.1 mmol/L (3.5-5.1) 12/19/20 05:22 BUN 17 mg/dL (7-18) 12/19/20 05:22 Creatinine 1.12 mg/dL (0.55-1.3) 12/19/20 05:22 Glucose 118 mg/dL (74-106) H 12/19/20 05:22 Phosphorus 2.9 mg/dL (2.5-4.9) 12/12/20 04:21 Magnesium 2.0 mg/dL (1.8-2.4) 12/17/20 04:25 Total Bilirubin 0.8 mg/dL (0.2-1.0) 12/19/20 05:22 AST 34 U/L (15-37) 12/19/20 05:22 ALT 63 U/L (12-78) 12/19/20 05:22 Alkaline Phosphatase 142 U/L (45-117) H 12/19/20 05:22 Home Medications: Aspirin [Low Dose Aspirin EC] 81 mg PO DAILY 09/13/20 Divalproex ER [Depakote *ER] 250 mg PO DAILY 09/13/20 Docusate [Colace Cap*] 100 mg PO DAILY 09/13/20 Lisinopril [Zestril] 20 mg PO DAILY 09/13/20 Melatonin 5 mg PO BEDTIME 09/13/20 Nifedipine Xl [Procardia XL*] 60 mg PO BID 09/13/20 traMADol HCL [Ultram*] 50 mg PO BID 09/13/20 Acetaminophen [Tylenol] 650 mg PO TIDP PRN 09/22/20 Atorvastatin Calcium [Lipitor*] 40 mg PO BEDTIME 09/22/20 Divalproex ER [Depakote *ER] 500 mg PO BEDTIME 09/22/20 Linagliptin [Tradjenta] 5 mg PO DAILY 09/22/20 Omeprazole 20 mg PO DAILY 09/22/20 Oxybutynin Chloride [Ditropan*] 5 mg PO TID 09/22/20 Ascorbic Acid 500 mg PO DAILY 12/15/20 Bismuth Subsalicylate [Pepto-Bismol] 30 ml PO Q8H PRN 12/15/20 Hydralazine [Apresoline*] 25 mg PO BID* PRN 12/15/20 Loperamide HCl [Imodium A-D] 2 mg PO Q8HR PRN 12/15/20 Magnesium Chloride 2 tab PO DAILY 30 Days #60 tab 12/15/20 Metoprolol Tartrate [Lopressor*] 50 mg PO BID* 02/20/21 Potassium Chloride [Klor-Con M20] 20 meq PO DAILY 30 Days #30 tab.er.prt 12/15/20 Tramadol HCl [Ultram] 50 mg PO BEDTIME 12/15/20 Zinc Sulfate [Zinc Sulfate*] 220 mg PO DAILY 12/15/20 Calcium Carbonate [Tums Regular*] 1,000 mg PO TIDP PRN #0 tab 12/20/20 Loperamide [Imodium*] 2 mg PO Q8H PRN cap 12/20/20 Smz./Tmp. [Bactrim Ds 800 MG/160 MG] 1 tab PO BID #14 tab 12/20/20 metroNIDAZOLE [Flagyl] 500 mg PO Q8H #21 tablet 12/21/20 New Medications: Smz./Tmp. [Bactrim Ds 800 MG/160 MG] 1 tab PO BID #14 tab metroNIDAZOLE [Flagyl] 500 mg PO Q8H #21 tablet Potassium Chloride [Klor-Con M20] 20 meq PO DAILY 30 Days #30 tab.er.prt Magnesium Chloride 2 tab PO DAILY 30 Days #60 tab Diet: ADA Activity: Fall precautions Followup: Ethan Sanderson MD [ACTIVE - CAN ADMIT] - 1-2 Weeks NONE,NONE [Primary Care Provider] - Time spent managing pt's care (in minutes): 45
--- NOTE | 2020-12-20 17:18 | P.PN ---
Subjective Date of Service: 12/20/20 Chief Complaint: AMS Patient is status post lap cholecystectomy today. Patient has no complain today except feeling tired. No fever recorded. Physical Examination - Vital Signs Temperature: 97.7 F Blood Pressure: 157/76 Pulse: 64 Respirations: 20 Pulse Ox (%): 96 - Physical Exam General: Alert, In no apparent distress, Oriented x3 Neck: Supple, JVD not distended Respiratory: Clear to auscultation bilaterally, Normal air movement Cardiovascular: Regular rate/rhythm, Normal S1 S2 Gastrointestinal: Normal bowel sounds, Soft and benign, Non-distended Musculoskeletal: No swelling Integumentary: No rashes Neurological: Other (No focal motor deficit.) Assessment And Plan - Current Problems (Diagnosis) (1) Pneumonia Current Visit: Yes Status: Acute (2) Acute kidney injury Current Visit: No Status: Acute (3) Metabolic encephalopathy Current Visit: Yes Status: Acute (4) UTI (urinary tract infection) Current Visit: No Status: Suspected Qualifiers: Urinary tract infection type: site unspecified Hematuria presence: without hematuria Qualified Code(s): N39.0 - Urinary tract infection, site not specif ied (5) Metabolic acidosis Current Visit: Yes Status: Acute (6) Chronic anemia Current Visit: Yes Status: Acute (7) Diarrhea Current Visit: Yes Status: Acute (8) Acute cholecystitis Current Visit: Yes Status: Acute Physician Review Additional Text: GARY resolved Urine culture is growing resistant strain E. coli. was on IV cefepime -switched to meropenem noted to have a cholecystitis too. Appreciate help from ID Appreciate help from surgery monitor CBC daily Hemoglobin monitored Status post 2 units PRBC transfusion. Posttransfusion hemoglobin is stable around 8. Continue to monitor H&H and transfuse p.r.n. Wang catheter has been changed earlier in hospitalization and then during lap cholecystectomy. Stool studies-stool WBC, culture and C.diff toxins - c diff Ab positive, toxin negative (possible carrier), started PO Vanc on 12/12 given continued diarrhea. PCR negative. Vancomycin discontinued. Status post lap cholecystectomy, Liver biopsy and cholangiogram. Cholangiogram was unremarkable. PICC placed on 12/14, continue meropenem - to cover resistant E.coli in urine, pneumonia, and possible cholecystitis per ID recommendation. Pain management as needed. ID recommended oral Bactrim on discharge. PT to evaluate for outpatient recommendation
[2020-12-20] MEDS: MELATONIN 5 MG TABLET PO SCH (20:55)
[2020-12-20] MEDS: ATORVASTATIN 20 MG TAB PO SCH (20:56)
[2020-12-21] MEDS: Meropenem 1,000 MG in NA CHLORIDE 0.9% 100 ML IV SCH ×2 (00:23→08:48)
[2020-12-21] MEDS: INSULIN -REGULAR HUMAN 50 UNIT/0.5 ML ML SQ SCH (07:30)
[2020-12-21] MEDS: DIVALPROEX ER 250 MG TAB PO SCH (08:48)
[2020-12-21] MEDS: OXYBUTYNIN CHLORIDE 5 MG TAB PO SCH ×2 (08:48→15:27)
[2020-12-21] MEDS: METOPROLOL TAR 25 MG TAB PO SCH ×2 (08:48→15:27)
[2020-12-21] MEDS: ASPIRIN EC 81 MG TAB PO SCH (08:48)
[2020-12-21] MEDS: MORPHINE 2 MG/ML SYR IV PRN ×2 (08:51→15:30)
[2020-12-21 10:18] VITALS: TEMP 97
--- NOTE | 2020-12-21 10:29 | P.PN ---
Subjective Date of Service: 12/21/20 Chief Complaint: AMS A 64 yr old male [place] resident with PMhx of HTN on lisinopril, recurrent CVA/TIA, DM , CAD, CHF s/p AICD, Chronic urine retention on indwelling parikh pt was admitted for lethargy and AMS pt cr 1.0 in September , in ER pt was hypotensive , CR 5.6, Bicarb 11 Today no overnight events Cr stable H/H stable will add coreg Physical exam general: Awake, alert, Obese, in mild distress Neck; Supple, No elevated JVD hear: RRR, normal S1,2 no murmur or rub Chest: CTAB, no rales or wheezes Abdomen: Soft , Nt, Parikh catheter Extremities No edema or ulcer A/P GARY due to dehydration Abd CT : no hydro cont IVF, will change to Ringer lactate HAGMA resolved AMS likely due to uropsepsis resolved Urosepsis cont merrem HTN will add Coreg C.diff Cont Abx hypokalemia and hypomagnesemia replace prn DM SSI total time spent 25min Physical Examination - Vital Signs Temperature: 97.0 F Blood Pressure: 188/88 Pulse: 67 Respirations: 24 Pulse Ox (%): 96 Assessment And Plan Physician Review: Patient Assessed, Agree with Above Assessment and Plan
--- NOTE | 2020-12-21 10:41 | P.PN ---
Subjective Date of Service: 12/21/20 Chief Complaint: AMS Patient seen and examined at bedside s/p lap cholecystectomy. Abdominal still present. Patient remains afebrile with a T-max of 97.5, no leukocytosis at this time. Patient can be discharged on oral Bactrim and Flagyl. Review of Systems 10-point ROS is otherwise unremarkable Physical Examination - Vital Signs Temperature: 97.0 F Blood Pressure: 188/88 Pulse: 67 Respirations: 24 Pulse Ox (%): 96 - Physical Exam General: Alert, In no apparent distress HEENT: Atraumatic, Normocephalic, PERRLA Neck: Supple, 2+ carotid pulse no bruit, JVD not distended Respiratory: Clear to auscultation bilaterally, Normal air movement Cardiovascular: No edema, Normal pulses, Regular rate/rhythm Capillary refill: <2 Seconds Gastrointestinal: Rigidity, Tenderness Musculoskeletal: No clubbing, No swelling Integumentary: No rashes, No breakdown, No significant lesion External genitalia: Deferred - Studies Laboratory Last Values WBC 14.00 K/uL (4.3-10.9) H 12/07/20 16:16 RBC 3.22 M/uL (4.33-5.43) L 12/07/20 16:16 Hgb 9.1 g/dL (13.6-17.9) L 12/07/20 16:16 Hct 28.2 % (39.6-49.0) L 12/07/20 16:16 MCV 87.7 fL (80-100) D 12/07/20 16:16 MCH 28.4 pg (27.0-35.0) 12/07/20 16:16 MCHC 32.3 g/dL (32.0-36.0) 12/07/20 16:16 RDW 16.1 % (12.1-15.2) H 12/07/20 16:16 Plt Count 233 K/uL (152-406) 12/07/20 16:16 MPV 8.3 fL (7.6-11.3) 12/07/20 16:16 Neutrophils % 77.4 % (41.7-73.7) H 12/07/20 16:16 Lymphocytes % 11.5 % (15.3-44.8) L 12/07/20 16:16 Monocytes % 10.5 % (3.3-12.3) 12/07/20 16:16 Eosinophils % 0.2 % (0-4.4) 12/07/20 16:16 Basophils % 0.4 % (0-1.3) 12/07/20 16:16 Absolute Neutrophils 10.9 K/uL (1.8-8.0) H 12/07/20 16:16 Absolute Lymphocytes 1.6 K/uL (0.7-4.9) 12/07/20 16:16 Absolute Monocytes 1.5 K/uL (0.1-1.3) H 12/07/20 16:16 Absolute Eosinophils 0.0 K/uL (0-0.5) 12/07/20 16:16 Absolute Basophils 0.1 K/uL (0-0.5) 12/07/20 16:16 PT 12.3 SECONDS (9.5-12.5) 12/07/20 16:16 INR 1.07 12/07/20 16:16 APTT 26.0 SECONDS (24.3-36.9) 12/07/20 16:16 Sodium 136 mmol/L (136-145) 12/07/20 16:16 Potassium 5.0 mmol/L (3.5-5.1) 12/07/20 16:16 Chloride 105 mmol/L (98-107) 12/07/20 16:16 Carbon Dioxide 14 mmol/L (21-32) L* 12/07/20 16:16 BUN 116 mg/dL (7-18) H 12/07/20 16:16 Creatinine 5.56 mg/dL (0.55-1.3) H* 12/07/20 16:16 Estimated GFR 10 mL/min (=/>90) L 12/07/20 16:16 Glucose 138 mg/dL (74-106) H 12/07/20 16:16 Lactic Acid 1.8 mmol/L (0.4-2.0) 12/07/20 16:16 Calcium 7.7 mg/dL (8.5-10.1) L 12/07/20 16:16 Total Bilirubin 0.7 mg/dL (0.2-1.0) 12/07/20 16:16 Direct Bilirubin 0.2 mg/dL (0-0.2) 12/07/20 16:16 AST 6 U/L (15-37) L 12/07/20 16:16 ALT 13 U/L (12-78) 12/07/20 16:16 Alkaline Phosphatase 75 U/L (45-117) 12/07/20 16:16 Creatine Kinase 22 U/L (39-308) L 12/07/20 16:16 Rapid Troponin I < 0.02 ng/mL (0.0-0.045) 12/07/20 16:16 Serum Total Protein 7.2 g/dL (6.4-8.2) 12/07/20 16:16 Albumin 2.7 g/dL (3.4-5.0) L 12/07/20 16:16 Globulin 4.5 g/dL (2.3-3.5) H 12/07/20 16:16 Albumin/Globulin Ratio 0.6 (1.1-1.8) L 12/07/20 16:16 Procalcitonin 0.55 ng/mL (<0.050) H 12/07/20 16:16 Urine pH 5.0 (5.0-7.0) 12/07/20 18:32 Ur Specific [place] 1.025 (1.005-1.030) 12/07/20 18:32 Glucose (UA)(Auto) Negative (NEG) 12/07/20 18:32 Urine Ketones Negative (NEG) 12/07/20 18:32 Urine Blood 2+ (NEG) H 12/07/20 18:32 Urine Nitrite Negative (NEG) 12/07/20 18:32 Ur Leukocyte Esterase 3+ (NEG) H 12/07/20 18:32 Urine RBC 20-50 /HPF (NONE SEEN) H 12/07/20 18:19 Urine WBC >50 /HPF (<5) H 12/07/20 18:19 Ur Squamous Epith Cells <5 /HPF (NONE SEEN) 12/07/20 18:19 Amorphous Sediment 3+ /HPF (NONE SEEN) H 12/07/20 18:19 Urine Bacteria >50 /HPF (NONE SEEN) H 12/07/20 18:19 Urine Culture Reflexed Not needed 12/07/20 18:19 Ur Random Sodium 24 mmol/L (27-287) L 12/07/20 04:26 Urine Creatinine 109.0 mg/dL (20-370) 12/07/20 04:26 Urine Total Protein 2+ (NEG) H 12/07/20 18:32 SARS-CoV-2 RNA (RT-PCR) Negative (NEGATIVE) 12/07/20 16:48 Assessment And Plan - Plan Assessment: 1.acute choleysitis s/p cholecystectomy 2.UTI secondary to E.coli 3. anemia 4. Dm type 2 Plan: 1. Continue current antibiotic. Patient tolerating merum well. Incision sites on abdomen are clean and dry with no clinical signs of infection. The patient can be discharged on oral Bactrim and Flagyl. 2. Repeat UA ordered-awaiting results. -medical management per primary team -continue to monitor CBC and BMP -continue to monitor for signs of infection. Plan of care discussed with Dr. Morgan. Thank you for consultation. Physician Review: Patient Assessed, Agree with Above Assessment and Plan
[2020-12-21] MEDS ORDERED: NIFEDIPINE XL 60 MG TABLET PO SCH ×2 (12:00→21:00)
[2020-12-21 13:02] VITALS: O2SAT 96
[2020-12-21 15:31] VITALS: BP 155/74
== END 2020-12-21 17:39 | DRG 673 ==
LOC: ER 16:01 → ERHOLD 19:54 → 2ND 12-08 00:41
PROVIDERS: ADMIT Internal Medicine; ATTEND Internal Medicine
PROC: 30233N1 Transfusion of Nonautologous Red Blood Cells into Peripheral Vein, Percutaneous Approach (ICD-10-PCS; 2020-12-09)
PROC: 02HV33Z Insertion of Infusion Device into Superior Vena Cava, Percutaneous Approach (ICD-10-PCS; 2020-12-14)
PROC: 0FT44ZZ Resection of Gallbladder, Percutaneous Endoscopic Approach (ICD-10-PCS; 2020-12-18)
PROC: BF121ZZ Fluoroscopy of Gallbladder using Low Osmolar Contrast (ICD-10-PCS; 2020-12-18)
PROC: 0FB14ZX Excision of Right Lobe Liver, Percutaneous Endoscopic Approach, Diagnostic (ICD-10-PCS; principal; 2020-12-18 08:30)
DX: T83.518A Infection and inflammatory reaction due to other urinary catheter, initial encounter (principal); J18.9 Pneumonia, unspecified organism; A41.51 Sepsis due to Escherichia coli [E. coli]; G93.41 Metabolic encephalopathy; N17.9 Acute kidney failure, unspecified; E87.2 Acidosis; A04.72 Enterocolitis due to Clostridium difficile, not specified as recurrent; K80.12 Calculus of gallbladder with acute and chronic cholecystitis without obstruction; N30.90 Cystitis, unspecified without hematuria; I10 Essential (primary) hypertension; I25.10 Atherosclerotic heart disease of native coronary artery without angina pectoris; E11.9 Type 2 diabetes mellitus without complications; E86.0 Dehydration; E87.6 Hypokalemia; E83.42 Hypomagnesemia; F03.90 Unspecified dementia, unspecified severity, without behavioral disturbance, psychotic disturbance, mood disturbance, and anxiety; D63.8 Anemia in other chronic diseases classified elsewhere; F17.200 Nicotine dependence, unspecified, uncomplicated; E78.5 Hyperlipidemia, unspecified; Z79.82 Long term (current) use of aspirin; Z79.899 Other long term (current) drug therapy; Z86.73 Personal history of transient ischemic attack (TIA), and cerebral infarction without residual deficits; Z95.810 Presence of automatic (implantable) cardiac defibrillator; Z20.822 Contact with and (suspected) exposure to COVID-19
CPT/HCPCS: 36415; 36569; 70450; 71045; 71260; 74176; 74177; 74300; 76377; 76705; 80048; 80053; 80069; 80076; 81003; 81015; 82550; 82570; 82607; 82728; 82746; 82947; 83540; 83605; 83735; 84100; 84132; 84145; 84300; 84466; 84484; 85014; 85018; 85025; 85027; 85610; 85730; 86850; 86900; 86901; 87040; 87045; 87046; 87077; 87086; 87088; 87186; 87324; 87449; 87493; 88304; 88305; 88307; 88313; 93005; 94760; 97161; 97530; 99285; J0360; J0456; J0692; J0696; J1170; J1644; J1940; J2185; J2250; J2270; J2405; J2550; J2704; J2710; J2916; J3010; J3475; J3480; J7030; J7040; J7050; J7120; P9016; Q9967; U0003

== ENCOUNTER 2021-07-26 12:40 | Inpatient (IN) | payer OTHER ==
[2021-07-26] MEDS ORDERED: NA CHLORIDE 0.9% 1,000 ML ONE ×2 (13:29→19:11)
[2021-07-26 13:36] LABS: Urine Blood 2+ (Negative); Urine Glucose Negative (Negative); Urine Protein 2+ (Negative)
[2021-07-26 14:00] LABS: BUN Blood Urea Nitrogen 13 mg/dL (7-18); Bicarbonate 26 mmol/L (21-32); Glucose Level 128 mg/dL (74-106); Potassium 3.7 mmol/L (3.5-5.1); Sodium Level 143 mmol/L (136-145)
[2021-07-26 14:01] LABS: Urine Bacteria >50 /HPF (NONE SEEN)
--- NOTE | 2021-07-26 14:33 | RAD REPORT ---
EXAM DESCRIPTION: CTAbdomen Pelvis W Contrast - 07/26/2021 2:18 pm CLINICAL HISTORY: Abdominal pain. AMS, possible pyelonephritis COMPARISON: No comparisons TECHNIQUE: Biphasic CT imaging of the abdomen and pelvis was performed with 100 ml non-ionic IV cont rast. All CT scans are performed using dose optimization technique as appropriate and may include automated exposure control or mA/KV adjustment according to patient size. FINDINGS: Mild linear atelectasis is present in the posterior left lung base. Cholecystectomy clips are present. Small cyst is seen in the anterior inferior right lobe of liver. N o aggressive liver lung mass or biliary dilatation. The spleen, pancreas, adrenal glands are within n ormal limits. There is thickening of the urinary bladder wall with mild adjacent fat stranding in the pelvis. A Fol ey catheter is in place. Small cysts are present in both kidneys. No hydronephrosis or focal mass. No bowel obstruction, free air, free fluid or abscess. The appendix is normal. Moderate wall thicken ing is present involving the rectum. The rectosigmoid colon demonstrates moderate retained stool. No evidence of significant lymphadenopathy. Moderate lumbar degenerative changes. IMPRESSION: Urinary bladder irregular thickening with mild adjacent fat stranding is present suggest ing cystitis. Moderate stool is present throughout the colon.
[2021-07-26 15:04] LABS: Absolute Lymphocytes (CBC) 0.6 K/uL (0.7-4.9); Basophils % 0.5 % (0-1.3); Hematocrit 30.5 % (39.6-49.0); Lymphocytes % 5.9 % (15.3-44.8); MPV 7.3 fL (7.6-11.3); RBC Red Blood Cell Count 3.59 M/uL (4.33-5.43)
--- NOTE | 2021-07-26 15:09 | ER ---
Nurse's Notes [facility] Name: Raphael Hoyos Age: 65 yrs Sex: Male : 1955 Arrival Date: 07/26/2021 Time: 12:46 Bed 28 Private MD: Diagnosis: UTI/ Urinary tract infection, site not specified;Mechanical complication of urinary (indwelling) catheter Presentation: 07/26 13:44 Chief complaint: EMS states: pt was sent from [facility] with c/o kh1 urinary retention. pt states parikh was placed a month ago. abd is distended and firm. pt was saturated with feces. genital are swollen with pus like discharge coming from around the meatus. Coronavirus screen: Vaccine status: Patient reports being unvaccinated. states does not want to be vaccinated. Ebola Screen: No symptoms or risks identified at this time. Initial Sepsis Screen: Does the patient meet any 2 criteria? No. Patient's initial sepsis screen is negative. Does the patient have a suspected source of infection? Yes: Dysuria/Frequency/Urgency/UTI. Risk Assessment: Do you want to hurt yourself or someone else? Patient reports no desire to harm self or others. Onset of symptoms was July 25, 2021. 13:44 Method Of Arrival: EMS: [facility] 13:44 Acuity: DANIELA 3 kh1 Triage Assessment: 13:48 General: Appears in no apparent distress. uncomfortable, obese, unkempt, Behavior is kh1 cooperative, appropriate for age, fussy. Pain: Complains of pain in right hip nd lower abd Pain does not radiate. Pain currently is 10 out of 10 on a pain scale. Quality of pain is described as sharp, Pain began 1 day ago. Is continuous. Neuro: No deficits noted. Level of Consciousness is awake, alert, obeys commands, Oriented to person, place, time, situation, Guest Service Representative are equal bilaterally Moves all extremities. Gait is Speech is normal, Facial symmetry appears normal, Cardiovascular: No deficits noted. Respiratory: No deficits noted. GI: Bowel sounds present X 4 quads. Abdomen is tender to palpation X 4 quads. Abd is rigid. : Parikh in place Urine is cloudy, pus filled Penile discharge is Bladder is distended Reports inability to void, since yesterday. Historical: - Immunization history:: Adult Immunizations up to date, Client reports having NOT received the Covid vaccine. - Family history:: not pertinent. - Social history:: Smoking status: unknown. - Hospitalizations: : No recent hospitalization is reported. Screenin:52 Abuse screen: Denies threats or abuse. Nutritional screening: No deficits noted. [facility] Tuberculosis screening: No symptoms or risk factors identified. Never had TB. Possible symptoms: None Risk factors: None. 13:53 Fall Risk No fall in past 12 months (0 pts). Secondary diagnosis (15 points) impaired [facility] mobility, IV access (20 points). Ambulatory Aid- None/Bed Rest/Nurse Assist (0 pts). Gait- Weak (10 pts.). Mental Status- Oriented to own ability (0 pts). Assessment: 13:52 General: Appears in no apparent distress. uncomfortable, obese, unkempt, Behavior is [facility] cooperative, appropriate for age. 15:14 Reassessment: Patient appears in no apparent distress at this time. No changes from [facility] previously documented assessment. Patient and/or family updated on plan of care and expected duration. Pain level reassessed. Patient is alert, oriented x 3, equal unlabored respirations, skin warm/dry/pink. 16:23 Reassessment: Patient appears in no apparent distress at this time. No changes from [facility] previously documented assessment. Patient and/or family updated on plan of care and expected duration. Pain level reassessed. Patient is alert, oriented x 3, equal unlabored respirations, skin warm/dry/pink. Vital Signs: 13:44 BP 141 / 95; Pulse 64; Resp 20; Temp 98.2; Pulse Ox 98% on R/A; Weight 105.69 kg; 1 Height 5 ft. 9 in. (175.26 cm); Pain 10/10; 13:48 BP 145 / 95; Pulse 64; Resp 20; Temp 98.2; Pulse Ox 98% on R/A; 1 15:15 BP 93 / 59; Pulse 64; Resp 16; Pulse Ox 95% ; 1 16:23 BP 93 / 61 Supine; Pulse 62 MON; Resp 18 S; Pulse Ox 99% on R/A; [facility] 13:44 Body Mass Index 34.41 (105.69 kg, 175.26 cm) [facility] Vitals: 15:15 Cardiac Rhythm Assessment Regular Sinus rhythm. kh1 ED Course: 12:46 Patient arrived in ED. iw 12:47 Ector Douglas MD is Attending Physician. rn 13:43 Mimi Flores is Primary Nurse. kh1 13:45 Inserted saline lock: 22 gauge in left wrist, using aseptic technique. Blood collected. iw 13:48 Triage completed. kh1 13:52 Arm band placed on left wrist. kh1 13:53 Patient has correct armband on for positive identification. Placed in gown. Bed in low kh1 position. Call light in reach. Side rails up X2. billet examiner on. Pulse ox on. NIBP on. 13:56 CBC with Automated Diff Sent. kh1 13:56 Lactate Sent. kh1 13:56 Procalcitonin Sent. kh1 13:56 Blood Culture Adult (2) Sent. kh1 13:56 Urine Culture Sent. kh1 13:56 Urine Microscopic Only Sent. kh1 13:57 Basic Metabolic Panel Sent. kh1 13:57 CBC with Diff Sent. kh1 14:18 CT Abd/Pelvis - IV Contrast Only In Process Unspecified. EDMS 15:05 CBC with Automated Diff Sent. kh1 15:07 Quintin Jay DO is Hospitalizing Provider. rn 20:15 No provider procedures requiring assistance completed. kh1 20:15 Patient admitted, IV remains in place. kh1 Administered Medications: 13:56 Drug: NS 0.9% 1000 ml Route: IV; Rate: 1000 ml; Site: left forearm; kh1 15:14 Drug: Rocephin (cefTRIAXone) 1 grams Route: IV; Rate: calculated rate; Site: left wrist;kh1 Outcome: 15:08 Decision to Hospitalize by Provider. rn 20:10 Admitted to Tele accompanied by [employer], via stretcher, room 228, with chart, Report bb called to Mariusz RN 20:15 Admitted to Med/surg accompanied by tech, room 228. kh1 20:15 Condition: stable 20:27 Patient left the ED. [facility] Signatures: Dispatcher [employer] EDMS Lynn Linda RN RN bb Zahra Rodriguez RN RN iw Ector Douglas MD MD rn Harris, Kecia [facility] Corrections: (The following items were deleted from the chart) 13:56 13:55 PMHx: Hypertension; kh1 kh1 13:56 13:55 PMHx: TIA; [place] [id number] 13:56 13:55 PMHx: CVA; [place] [id number] 13:56 13:55 PMHx: GERD; [place] [id number] 13:56 13:55 PMHx: Diabetes - IDDM; [place] [id number] 13:56 13:55 PMHx: Dementia; [place] [id number] 15:14 15:14 Rocephin (cefTRIAXone) 1 grams IV at calculated rate in left antecubital [place] [address] 16:12 15:08 CORONAVIRUS+MR.LAB.BRZ drawn and sent. [facility] EDMS
--- NOTE | 2021-07-26 15:09 | EDPHYS ---
Physician Documentation [facility] Name: Raphael Hoyos Age: 65 yrs Sex: Male : 1955 Arrival Date: 07/26/2021 Time: 12:46 Bed 28 Private MD: ED Physician Ector Douglas HPI: 07/26 13:11 This 65 yrs old Male presents to ER via Unassigned with complaints of Unable rn to urinate. 13:11 The patient presents with urinary symptoms, retention, unable to void. Onset: The rn symptoms/episode began/occurred yesterday. Modifying factors: The symptoms are alleviated by nothing, the symptoms are aggravated by nothing. Associated signs and symptoms: Pertinent negatives: abdominal pain, fever, nausea, vomiting. Severity of symptoms: At their worst the symptoms were moderate, in the emergency department the symptoms are unchanged. It is unknown whether or not the patient has had similar symptoms in the past. It is unknown whether or not the patient has recently seen a physician. Her EMS report patient brought in for urinary retention. States last time able to urinate was yesterday. Report given to them was that patient had bowel movement as well as urine produced yesterday and has not moved since then. Noted pus coming from penile meatus. Patient reports pain all over. Unknown if fever at home.. Historical: - Immunization history:: Adult Immunizations up to date, Client reports having NOT received the Covid vaccine. - Family history:: not pertinent. - Social history:: Smoking status: unknown. - Hospitalizations: : No recent hospitalization is reported. ROS: 13:11 Constitutional: Negative for fever, chills, and weight loss, Eyes: Negative for injury, rn pain, redness, and discharge, ENT: Negative for injury, pain, and discharge, Neck: Negative for injury, pain, and swelling, Cardiovascular: Negative for chest pain, palpitations, and edema, Respiratory: Negative for shortness of breath, cough, wheezing, and pleuritic chest pain, Abdomen/GI: Positive for lower abdominal pain Back: Positive for back pain : Positive for inability to urinate MS/Extremity: Negative for injury and deformity, Skin: Negative for injury, rash, and discoloration, Neuro: Negative for headache, weakness, numbness, tingling, and seizure. Exam: 13:11 Constitutional: Overweight male with strong body odor Head/Face: Normocephalic, rn atraumatic. Eyes: Periorbital areas with no swelling, redness, or edema. ENT: Dry mucous membranes Cardiovascular: Tachycardic, regular Respiratory: No increased work of breathing, no retractions or nasal flaring. Abdomen/GI: Soft, non-tender Male : Wang catheter already placed upon my arrival, with purulence noted from penile meatus. No testicular tenderness or crepitus Skin: Warm, dry MS/ Extremity: Pulses equal, no cyanosis. Neuro: Awake and alert, GCS 15 Vital Signs: 13:44 BP 141 / 95; Pulse 64; Resp 20; Temp 98.2; Pulse Ox 98% on R/A; Weight 105.69 kg; kh1 Height 5 ft. 9 in. (175.26 cm); Pain 10/10; 13:48 BP 145 / 95; Pulse 64; Resp 20; Temp 98.2; Pulse Ox 98% on R/A; kh1 15:15 BP 93 / 59; Pulse 64; Resp 16; Pulse Ox 95% ; kh1 16:23 BP 93 / 61 Supine; Pulse 62 MON; Resp 18 S; Pulse Ox 99% on R/A; kh1 13:44 Body Mass Index 34.41 (105.69 kg, 175.26 cm) [facility] hospital MDM: 12:47 Patient medically screened. rn 13:15 ED course: Clarified story and report now is that he had a Wang catheter for 1 month rn and has not noticed any urine output since yesterday which makes more sense.. 15:05 Differential diagnosis: nonspecific abdominal pain, UTI, urinary retention, Wang rn catheter problem, prostatitis, urethritis. Data reviewed: vital signs, nurses notes, lab test result(s), radiologic studies, CT scan, and as a result, I will admit patient. 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 Interpretation: normal. Counseling: I had a detailed discussion with the patient and/or guardian regarding: the historical points, exam findings, and any diagnostic results supporting the discharge/admit diagnosis, lab results, radiology results, the need for further work-up and treatment in the hospital. Response to treatment: the patient's symptoms have mildly improved after treatment. Admission orders: after a detailed discussion of the patient's condition and case, the admit orders are written by me. 07/26 12:53 Order name: CBC with Diff rn 07/26 12:53 Order name: Basic Metabolic Panel; Complete Time: 14:35 rn 07/26 12:53 Order name: Urine Culture rn 07/26 12:53 Order name: Urine Microscopic Only; Complete Time: 14:35 rn 07/26 12:53 Order name: Blood Culture Adult (2) rn 07/26 12:53 Order name: Procalcitonin; Complete Time: 15:21 rn 07/26 12:53 Order name: Lactate; Complete Time: 14:35 rn 07/26 12:53 Order name: CT Abd/Pelvis - IV Contrast Only; Complete Time: 14:35 rn 07/26 12:53 Order name: CBC with Automated Diff; Complete Time: 15:21 EDNY 07/26 13:36 Order name: Urine Dipstick-Ancillary; Complete Time: 14:35 EDNY 07/26 17:13 Order name: SARS-COV-2 RT PCR EDNY 07/26 18:08 Order name: Lactate EDNY 07/26 18:37 Order name: Procalcitonin EDNY 07/26 12:53 Order name: IV Start; Complete Time: 13:45 rn 07/26 12:53 Order name: Urine Dipstick-Ancillary (obtain specimen); Complete Time: 13:45 rn 07/26 13:15 Order name: Wang; Complete Time: 13:56 rn 07/26 13:59 Order name: Labs - recollect needed: recollect cbc; Complete Time: 15:05 eb Administered Medications: 13:56 Drug: NS 0.9% 1000 ml Route: IV; Rate: 1000 ml; Site: left forearm; kh1 15:14 Drug: Rocephin (cefTRIAXone) 1 grams Route: IV; Rate: calculated rate; Site: left wrist;kh1 Disposition Summary: 07/26/21 15:08 Hospitalization Ordered Hospitalization Status: Inpatient Admission rn Provider: Quintin Jay rn [facility]n Condition: Stable rn Problem: new rn Symptoms: have improved rn Bed/Room Type: Standard rn Room Assignment: 228(07/26/21 18:59) tt3 Diagnosis - UTI/ Urinary tract infection, site not specified rn - Mechanical complication of urinary (indwelling) catheter rn Forms: - Medication Reconciliation Form rn - SBAR form rn Signatures: Dispatcher [employer] EDMS Ector Douglas MD MD rn Botello, Elizabeth eb Trim, Tyler tt3 FloresHectora kh1 Migue Lu la3 Corrections: (The following items were deleted from the chart) 13:56 13:55 PMHx: Hypertension; psychiatric hospital kh1 13:56 13:55 PMHx: TIA; psychiatric hospital kh1 13:56 13:55 PMHx: CVA; psychiatric hospital kh1 13:56 13:55 PMHx: GERD; [place] [id number] 13:56 13:55 PMHx: Diabetes - IDDM; [email or web address] 13:56 13:55 PMHx: Dementia; [place] [id number] 16:12 14:10 CORONAVIRUS+MR.LAB.BRZ ordered. EDNY EDMS 18:59 15:08 rn tt3
[2021-07-26] MEDS ORDERED: CEFTRIAXONE 1000 MG/VIAL ONE (15:35)
[2021-07-26] MEDS ORDERED: ACETAMINOPHEN 500 MG TAB PO PRN (17:08)
[2021-07-26] MEDS ORDERED: ONDANSETRON 4 MG/2 ML VIAL IV PRN (17:08)
[2021-07-26] MEDS: NA CHLORIDE 0.9% 1,000 ML IV SCH (17:08)
[2021-07-26] MEDS: ENOXAPARIN 40 MG/0.4 ML SQ SCH (18:00)
[2021-07-26 18:20] VITALS: BMI 34.4
[2021-07-26] MEDS ORDERED: ENOXAPARIN 30 MG/0.3 ML SQ ONE (19:11)
[2021-07-26] MEDS ORDERED: ENOXAPARIN 40 MG/0.4 ML SQ ONE (19:20)
[2021-07-26] MEDS ORDERED: TRAMADOL HCL 50 MG TAB PO PRN (21:47)
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
--- NOTE | 2021-07-27 06:08 | P.PN ---
Subjective Date of Service: 07/27/21 Primary Care Provider: none Chief Complaint: Cystitis Subjective: Improving, Doing well Physical Examination - Vital Signs Temperature: 96.5 F Blood Pressure: 132/77 Pulse: 60 Respirations: 17 Pulse Ox (%): 97 - Studies Laboratory Data (last 24 hrs) 07/26/21 14:47: WBC 9.50, Hgb 10.7 L, Hct 30.5 L, Plt Count 240 07/26/21 13:30: Sodium 143, Potassium 3.7, BUN 13, Creatinine 0.81, Glucose 128 H Assessment & Plan Discharge Plan: Senior Care Plan to discharge in: 48 Hours Physician Review Additional Text: COVID: Negative CT scan: COMPARISON: No comparisons TECHNIQUE: Biphasic CT imaging of the abdomen and pelvis was performed with 100 ml non-ionic IV contrast. All CT scans are performed using dose optimization technique as appropriate and may include automated exposure control or mA/KV adjustment according to patient size. FINDINGS: Mild linear atelectasis is present in the posterior left lung base. Cholecystectomy clips are present. Small cyst is seen in the anterior inferior right lobe of liver. No aggressive liver lung mass or biliary dilatation. The spleen, pancreas, adrenal glands are within normal limits. There is thickening of the urinary bladder wall with mild adjacent fat stranding in the pelvis. A Wang catheter is in place. Small cysts are present in both kidneys. No hydronephrosis or focal mass. No bowel obstruction, free air, free fluid or abscess. The appendix is normal. Moderate wall thickening is present involving the rectum. The rectosigmoid colon demonstrates moderate retained stool. No evidence of significant lymphadenopathy. Moderate lumbar degenerative changes. IMPRESSION: Urinary bladder irregular thickening with mild adjacent fat stranding is present suggesting cystitis. Moderate stool is present throughout the colon. Physical exam: General: Patient alert cooperative. Patient with underlying dementia HEENT: Neck supple Respiratory: Clear to auscultation bilaterally, Normal air movement Cardiovascular: No edema, Normal pulses, Regular rate/rhythm Capillary refill: Brisk Gastrointestinal: Normal bowel sounds, Soft and benign Musculoskeletal: No contractures, No erythema, No tenderness Integumentary: No rashes, No breakdown Neurological: Alert. Cooperative. Patient covering his head with sheets. Urinary: Wang catheter External genitalia: Deferred Rectal: Deferred Impression: UTI with chronic indwelling catheter HTN Dementia Hyperlipidemia Seizure disorder History of CVA Plan: UTI with chronic indwelling catheter: Indwelling catheter was replaced yesterday. Continue Rocephin. Await blood and urine culture results. Continue IV fluids. If taking good oral intake will Hep-Lock IV. Dementia: Continue with medication. HTN: Blood pressure stable off medication at this time. Will need to verify home medication. Hyperlipidemia: Resume statin medication Seizure disorder: Resume medication History of CVA: Continue with aspirin and DVT prophylaxis. DVT prophylaxis: Lovenox Code Status: DNR Discharge Plan: Return to [facility] at discharge Time Spent Managing Pts Care (In Minutes): 55
[2021-07-27 07:02] LABS: Absolute Lymphocytes (CBC) 1.2 K/uL (0.7-4.9); Basophils % 0.3 % (0-1.3); Hematocrit 30.1 % (39.6-49.0); Lymphocytes % 25.3 % (15.3-44.8); MPV 7.5 fL (7.6-11.3); RBC Red Blood Cell Count 3.53 M/uL (4.33-5.43)
[2021-07-27 07:31] LABS: ALT/SGPT 28 U/L (12-78); AST/SGOT 20 U/L (15-37); Albumin 2.6 g/dL (3.4-5.0); Alkaline Phosphatase 86 U/L (45-117); BUN Blood Urea Nitrogen 13 mg/dL (7-18); Bicarbonate 27 mmol/L (21-32); Bilirubin Total 0.6 mg/dL (0.2-1.0); Glucose Level 77 mg/dL (74-106); Potassium 3.1 mmol/L (3.5-5.1); Protein, Total 6.6 g/dL (6.4-8.2); Sodium Level 144 mmol/L (136-145)
[2021-07-27] MEDS ORDERED: CEFTRIAXONE 1 GM/NS 50 ML 1 GM/50 ML BAG IV SCH (09:00)
[2021-07-27] MEDS: ENOXAPARIN 40 MG/0.4 ML SQ SCH (09:12)
[2021-07-27] MEDS: NA CHLORIDE 0.9% 1,000 ML IV SCH ×3 (09:12→23:08)
[2021-07-27] MEDS ORDERED: HYDRALAZINE HCL 20 MG/ML VIAL IV ONE (20:55)
[2021-07-27] MEDS: TRAMADOL HCL 50 MG TAB PO PRN (21:22)
[2021-07-27] MEDS: MELATONIN 5 MG TABLET PO SCH (21:23)
[2021-07-27] MEDS: DIVALPROEX ER 250 MG TAB PO SCH (21:23)
[2021-07-27] MEDS: ATORVASTATIN 20 MG TAB PO SCH (21:24)
[2021-07-28 06:13] LABS: Absolute Lymphocytes (CBC) 1.1 K/uL (0.7-4.9); Basophils % 0.9 % (0-1.3); Hematocrit 31.3 % (39.6-49.0); MPV 7.2 fL (7.6-11.3); RBC Red Blood Cell Count 3.71 M/uL (4.33-5.43)
--- NOTE | 2021-07-28 06:13 | P.PN ---
Subjective Date of Service: 07/28/21 Primary Care Provider: none Chief Complaint: Cystitis Subjective: Improving, Doing well Physical Examination - Vital Signs Temperature: 97.8 F Blood Pressure: 134/76 Pulse: 60 Respirations: 20 Pulse Ox (%): 98 Assessment & Plan Discharge Plan: [facility] Plan to discharge in: 24 Hours Physician Review Additional Text: COVID: Negative CT scan: COMPARISON: No comparisons TECHNIQUE: Biphasic CT imaging of the abdomen and pelvis was performed with 100 ml non-ionic IV contrast. All CT scans are performed using dose optimization technique as appropriate and may include automated exposure control or mA/KV adjustment according to patient size. FINDINGS: Mild linear atelectasis is present in the posterior left lung base. Cholecystectomy clips are present. Small cyst is seen in the anterior inferior right lobe of liver. No aggressive liver lung mass or biliary dilatation. The spleen, pancreas, adrenal glands are within normal limits. There is thickening of the urinary bladder wall with mild adjacent fat stranding in the pelvis. A Wang catheter is in place. Small cysts are present in both kidneys. No hydronephrosis or focal mass. No bowel obstruction, free air, free fluid or abscess. The appendix is normal. Moderate wall thickening is present involving the rectum. The rectosigmoid colon demonstrates moderate retained stool. No evidence of significant lymphadenopathy. Moderate lumbar degenerative changes. IMPRESSION: Urinary bladder irregular thickening with mild adjacent fat stranding is present suggesting cystitis. Moderate stool is present throughout the colon. Physical exam: General: Patient alert cooperative. Patient with underlying dementia HEENT: Neck supple Respiratory: Clear to auscultation bilaterally, Normal air movement Cardiovascular: No edema, Normal pulses, Regular rate/rhythm Capillary refill: Brisk Gastrointestinal: Normal bowel sounds, Soft and benign Musculoskeletal: No contractures, No erythema, No tenderness Integumentary: No rashes, No breakdown Neurological: Alert. Cooperative. Patient covering his head with sheets. Urinary: Wang catheter External genitalia: Deferred Rectal: Deferred Impression: UTI with chronic indwelling catheter, Urine culture positive for E. coliESBL HTN Dementia Hyperlipidemia Seizure disorder History of CVA BPH Depression Plan: UTI with chronic indwelling catheter, urine culture positive for E. coliESBL: Indwelling catheter was replaced in the emergency room. Patient with ESBL. Will discontinue Rocephin. Change to IV meropenem 1000 mg IV twice daily. PICC line ordered. Patient will need IV meropenem 1000 mg IV twice daily for 7 days. Will consult social work to help arrange for this at the senior care. Will discontinue IV fluids. I will turn the service over to the hospitalist team tomorrow. I will go plan of care with him. Dementia: Overall stable. Continue HTN: Patient remained stable off blood pressure medication. Patient previously on hydralazine 25 mg 1 pill twice daily, losartan 20 mg daily, and metoprolol. If blood pressure starts to increase may need to restart medication. Hyperlipidemia: Continue Lipitor 40 mg daily Seizure disorder: Continue Depakote History of CVA: Continue with aspirin and DVT prophylaxis. BPH: Continue Flomax and Proscar Depression: Continue with Zoloft DVT prophylaxis: Lovenox Code Status: DNR Discharge Plan: Return to senior care at discharge with IV antibiotic therapy Time Spent Managing Pts Care (In Minutes): 55
[2021-07-28 06:37] LABS: ALT/SGPT 30 U/L (12-78); AST/SGOT 20 U/L (15-37); Albumin 2.7 g/dL (3.4-5.0); Alkaline Phosphatase 84 U/L (45-117); BUN Blood Urea Nitrogen 11 mg/dL (7-18); Bicarbonate 28 mmol/L (21-32); Bilirubin Total 0.6 mg/dL (0.2-1.0); Glucose Level 84 mg/dL (74-106); Potassium 3.3 mmol/L (3.5-5.1); Protein, Total 6.8 g/dL (6.4-8.2); Sodium Level 142 mmol/L (136-145)
[2021-07-28] MEDS: DOCUSATE NA 100 MG CAP PO SCH (08:25)
[2021-07-28] MEDS: ASPIRIN EC 81 MG TAB PO SCH (08:26)
[2021-07-28] MEDS: ZINC SULFATE 220 MG CAP PO SCH (08:26)
[2021-07-28] MEDS: DIVALPROEX ER 250 MG TAB PO SCH ×2 (08:27→21:26)
[2021-07-28] MEDS: ENOXAPARIN 40 MG/0.4 ML SQ SCH (08:28)
[2021-07-28] MEDS: ASCORBIC ACID 500 MG TABLET PO SCH (08:29)
[2021-07-28] MEDS: Meropenem 1 GM/100 ML BAG IV SCH ×2 (08:31→21:42)
[2021-07-28] MEDS: NA CHLORIDE 0.9% 1,000 ML IV SCH (09:08)
[2021-07-28] MEDS: ATORVASTATIN 20 MG TAB PO SCH (21:25)
[2021-07-28] MEDS: MELATONIN 5 MG TABLET PO SCH (21:25)
[2021-07-28] MEDS: TRAMADOL HCL 50 MG TAB PO PRN (21:26)
[2021-07-28] MEDS ORDERED: Meropenem 1000 MG/VIAL IV ONE (22:00)
[2021-07-28] MEDS ORDERED: NA CHLORIDE 0.9% 100 ML ONE (22:06)
[2021-07-29] MEDS: ZINC SULFATE 220 MG CAP PO SCH (11:35)
[2021-07-29] MEDS: DOCUSATE NA 100 MG CAP PO SCH (11:35)
[2021-07-29] MEDS: ASPIRIN EC 81 MG TAB PO SCH (11:35)
[2021-07-29] MEDS: FINASTERIDE 5 MG TAB PO SCH (11:35)
[2021-07-29] MEDS: ASCORBIC ACID 500 MG TABLET PO SCH (11:35)
[2021-07-29] MEDS: TAMSULOSIN 0.4 MG SR CAP PO SCH (11:35)
[2021-07-29] MEDS: SERTRALINE HCL 50 MG TAB PO SCH (11:36)
[2021-07-29] MEDS: ENOXAPARIN 40 MG/0.4 ML SQ SCH (11:36)
[2021-07-29] MEDS: Meropenem 1 GM/100 ML BAG IV SCH ×2 (11:45→19:59)
[2021-07-29] MEDS: DIVALPROEX ER 250 MG TAB PO SCH ×2 (11:45→19:56)
--- NOTE | 2021-07-29 17:12 | P.PN ---
Subjective Date of Service: 07/29/21 Subjective: No new changes, No C/O voiced, Ambulating, Improving Review of Systems 10-point ROS is otherwise unremarkable Physical Examination - Vital Signs Temperature: 98.1 F Blood Pressure: 178/84 Pulse: 70 Respirations: 18 Pulse Ox (%): 97 - Physical Exam General: Alert, In no apparent distress HEENT: Atraumatic, PERRLA, EOMI Neck: Supple, JVD not distended Respiratory: Clear to auscultation bilaterally, Normal air movement Cardiovascular: Regular rate/rhythm, Normal S1 S2 Gastrointestinal: Normal bowel sounds, No tenderness Musculoskeletal: No tenderness Integumentary: No rashes Neurological: Normal speech, Normal tone, Normal affect Lymphatics: No axilla or inguinal lymphadenopathy - Studies Medications List Reviewed: Yes Assessment & Plan - Problems (Diagnosis) (1) ESBL (extended spectrum beta-lactamase) producing bacteria infection Current Visit: Yes Status: Acute (2) Altered mental status Current Visit: No Status: Acute Qualifiers: Altered mental status type: somnolence Qualified Code(s): R40.0 - Somnolence (3) Hyponatremia Current Visit: No Status: Acute (4) HTN (hypertension) Current Visit: No Status: Chronic Qualifiers: Hypertension type: essential hypertension (5) Hyperlipidemia Current Visit: No Status: Chronic Qualifiers: Hyperlipidemia type: unspecified Qualified Code(s): E78.5 - Hyperlipidemia, unspecified (6) Insulin dependent diabetes mellitus Current Visit: No Status: Chronic (7) BPH (benign prostatic hyperplasia) Current Visit: No Status: Suspected Qualifiers: Lower urinary tract symptom presence: symptoms present Lower urinary tract symptom detail: straining on urination Qualified Code(s): N40.1 - Benign prostatic hyperplasia with lower urinary tract symptoms; R39.16 - Straining to void - Plan Plan: 1. Continue with antibiotic therapy 2. Strict blood sugar and blood pressure control 3. Await PICC line placement 4. GI and DVT prophylaxis - Advance Directives Does patient have a Living Will: No Does patient have a Durable POA for Healthcare: No - Code Status/Comfort Care Code Status: Do Not Attempt Resuscitat
[2021-07-29] MEDS: TRAMADOL HCL 50 MG TAB PO PRN (19:55)
[2021-07-29] MEDS: MELATONIN 5 MG TABLET PO SCH (19:56)
[2021-07-29] MEDS: ATORVASTATIN 20 MG TAB PO SCH (19:56)
[2021-07-30 06:24] LABS: BUN Blood Urea Nitrogen 13 mg/dL (7-18); Bicarbonate 29 mmol/L (21-32); Glucose Level 88 mg/dL (74-106); Potassium 3.5 mmol/L (3.5-5.1); Sodium Level 143 mmol/L (136-145)
[2021-07-30] MEDS: Meropenem 1 GM/100 ML BAG IV SCH ×2 (08:33→20:02)
[2021-07-30] MEDS: DIVALPROEX ER 250 MG TAB PO SCH ×2 (08:34→20:03)
[2021-07-30] MEDS: ASPIRIN EC 81 MG TAB PO SCH (08:34)
[2021-07-30] MEDS: TRAMADOL HCL 50 MG TAB PO PRN ×2 (08:34→20:02)
[2021-07-30] MEDS: ASCORBIC ACID 500 MG TABLET PO SCH (08:34)
[2021-07-30] MEDS: TAMSULOSIN 0.4 MG SR CAP PO SCH (08:34)
[2021-07-30] MEDS: ZINC SULFATE 220 MG CAP PO SCH (08:35)
[2021-07-30] MEDS: SERTRALINE HCL 50 MG TAB PO SCH (08:35)
[2021-07-30] MEDS: ENOXAPARIN 40 MG/0.4 ML SQ SCH (08:35)
[2021-07-30] MEDS: FINASTERIDE 5 MG TAB PO SCH (08:35)
[2021-07-30] MEDS: DOCUSATE NA 100 MG CAP PO SCH (08:40)
[2021-07-30] MEDS: MELATONIN 5 MG TABLET PO SCH (20:04)
[2021-07-30] MEDS: ATORVASTATIN 20 MG TAB PO SCH (20:04)
[2021-07-30] MEDS ORDERED: HYDROCODONE/APAP 5/325 MG TAB PO ONE (23:18)
[2021-07-31] MEDS ORDERED: HYDRALAZINE HCL 20 MG/ML VIAL IV PRN (03:00)
[2021-07-31] MEDS: Meropenem 1 GM/100 ML BAG IV SCH ×2 (08:53→21:17)
[2021-07-31] MEDS: ASPIRIN EC 81 MG TAB PO SCH (08:53)
[2021-07-31] MEDS: DOCUSATE NA 100 MG CAP PO SCH (08:53)
[2021-07-31] MEDS: DIVALPROEX ER 250 MG TAB PO SCH ×2 (08:54→21:20)
[2021-07-31] MEDS: FINASTERIDE 5 MG TAB PO SCH (08:54)
[2021-07-31] MEDS: TRAMADOL HCL 50 MG TAB PO PRN (08:54)
[2021-07-31] MEDS: ENOXAPARIN 40 MG/0.4 ML SQ SCH (08:55)
[2021-07-31] MEDS: ZINC SULFATE 220 MG CAP PO SCH (08:55)
[2021-07-31] MEDS: SERTRALINE HCL 50 MG TAB PO SCH (08:55)
[2021-07-31] MEDS: ASCORBIC ACID 500 MG TABLET PO SCH (08:55)
[2021-07-31] MEDS: TAMSULOSIN 0.4 MG SR CAP PO SCH (08:55)
[2021-07-31 12:36] LABS: Absolute Lymphocytes (CBC) 0.9 K/uL (0.7-4.9); Basophils % 0.8 % (0-1.3); Hematocrit 30.7 % (39.6-49.0); Lymphocytes % 20.9 % (15.3-44.8); MPV 7.5 fL (7.6-11.3)
[2021-07-31 12:46] LABS: BUN Blood Urea Nitrogen 14 mg/dL (7-18); Bicarbonate 29 mmol/L (21-32); Glucose Level 105 mg/dL (74-106); Potassium 3.8 mmol/L (3.5-5.1); Sodium Level 140 mmol/L (136-145)
--- NOTE | 2021-07-31 20:16 | RAD REPORT ---
EXAM DESCRIPTION: RAD - Chest Single View - 07/31/2021 8:10 pm CLINICAL HISTORY: picc line placement COMPARISON: Chest Single View dated 12/14/2020; Chest Single View dated 12/07/2020; Chest Single View dated 09/24/2020; Chest Single View dated 09/21/2020 FINDINGS: Portable chest was obtained following placement of a right upper extremity PICC line. The catheter tip projects over the SVC.
[2021-07-31] MEDS: ATORVASTATIN 20 MG TAB PO SCH (21:19)
[2021-07-31] MEDS: MELATONIN 5 MG TABLET PO SCH (21:21)
[2021-07-31 23:46] VITALS: O2SAT 98
[2021-08-01] MEDS: ASCORBIC ACID 500 MG TABLET PO SCH (08:29)
[2021-08-01] MEDS: TAMSULOSIN 0.4 MG SR CAP PO SCH (08:29)
[2021-08-01] MEDS: ZINC SULFATE 220 MG CAP PO SCH (08:29)
[2021-08-01] MEDS: DIVALPROEX ER 250 MG TAB PO SCH (08:29)
[2021-08-01] MEDS: FINASTERIDE 5 MG TAB PO SCH (08:29)
[2021-08-01] MEDS: ASPIRIN EC 81 MG TAB PO SCH (08:29)
[2021-08-01] MEDS: Meropenem 1 GM/100 ML BAG IV SCH (08:30)
[2021-08-01] MEDS: ENOXAPARIN 40 MG/0.4 ML SQ SCH (08:30)
[2021-08-01] MEDS: DOCUSATE NA 100 MG CAP PO SCH (08:30)
[2021-08-01] MEDS: SERTRALINE HCL 50 MG TAB PO SCH (08:30)
--- NOTE | 2021-08-01 08:41 | P.PN ---
Date of Service: 07/30/21 Subjective Clinically doing well. Awaiting for PICC line Review of Systems 10-point ROS is otherwise unremarkable Physical Examination - Vital Signs Reviewed - Physical Exam General: Alert, In no apparent distress Respiratory: Clear to auscultation bilaterally, Normal air movement Cardiovascular: Regular rate/rhythm, Normal S1 S2 Gastrointestinal: Normal bowel sounds, No tenderness Neurological: Normal speech, Normal tone, Normal affect Assessment & Plan - Problems (Diagnosis) (1) ESBL (extended spectrum beta-lactamase) producing bacteria infection Current Visit: Yes Status: Acute (2) Altered mental status Current Visit: No Status: Acute Qualifiers: Altered mental status type: somnolence Qualified Code(s): R40.0 - Somnolence (3) Hyponatremia Current Visit: No Status: Acute (4) HTN (hypertension) Current Visit: No Status: Chronic Qualifiers: Hypertension type: essential hypertension (5) Hyperlipidemia Current Visit: No Status: Chronic Qualifiers: Hyperlipidemia type: unspecified Qualified Code(s): E78.5 - Hyperlipidemia, unspecified (6) Insulin dependent diabetes mellitus Current Visit: No Status: Chronic (7) BPH (benign prostatic hyperplasia) Current Visit: No Status: Suspected Qualifiers: Lower urinary tract symptom presence: symptoms present Lower urinary tract symptom detail: straining on urination Qualified Code(s): N40.1 - Benign prostatic hyperplasia with lower urinary tract symptoms; R39.16 - Straining to void; R39.16 - Straining to void - Plan Plan: 1. Continue with antibiotic therapy 2. Strict blood pressure and blood sugar control 3. Awaiting PICC line placement and then transfer to LTAC - Advance Directives Does patient have a Living Will: No Does patient have a Durable POA for Healthcare: No - Code Status/Comfort Care Code Status: Do Not Attempt Resuscitat
--- NOTE | 2021-08-01 08:42 | P.PN ---
Date of Service: 07/31/21 Subjective Still awaiting PICC line placement. Clinically stable Review of Systems 10-point ROS is otherwise unremarkable Physical Examination - Vital Signs Reviewed - Physical Exam General: Alert, In no apparent distress Respiratory: Clear to auscultation bilaterally, Normal air movement Cardiovascular: Regular rate/rhythm, Normal S1 S2 Gastrointestinal: Normal bowel sounds, No tenderness Neurological: Normal speech, Normal tone, Normal affect Assessment & Plan - Problems (Diagnosis) (1) ESBL (extended spectrum beta-lactamase) producing bacteria infection Current Visit: Yes Status: Acute (2) Altered mental status Current Visit: No Status: Acute Qualifiers: Altered mental status type: somnolence Qualified Code(s): R40.0 - Somnolence (3) Hyponatremia Current Visit: No Status: Acute (4) HTN (hypertension) Current Visit: No Status: Chronic Qualifiers: Hypertension type: essential hypertension (5) Hyperlipidemia Current Visit: No Status: Chronic Qualifiers: Hyperlipidemia type: unspecified Qualified Code(s): E78.5 - Hyperlipidemia, unspecified (6) Insulin dependent diabetes mellitus Current Visit: No Status: Chronic (7) BPH (benign prostatic hyperplasia) Current Visit: No Status: Suspected Qualifiers: Lower urinary tract symptom presence: symptoms present Lower urinary tract symptom detail: straining on urination Qualified Code(s): N40.1 - Benign prostatic hyperplasia with lower urinary tract symptoms; R39.16 - Straining to void; R39.16 - Straining to void - Plan Plan: 1. Continue with antibiotic therapy awaiting PICC line placement 2. Strict blood pressure and blood sugar control 3. Awaiting PICC line placement and then transfer to long term facility - Advance Directives Does patient have a Living Will: No Does patient have a Durable POA for Healthcare: No - Code Status/Comfort Care Code Status: Do Not Attempt Resuscitat
--- NOTE | 2021-08-01 08:45 | P.DS ---
Discharge Date: 08/01/21 Primary Care Provider: none Disposition: TRANSFER TO CUSTODIAL Discharge Condition: GOOD Reason for Admission: Cystitis - Problems (1) ESBL (extended spectrum beta-lactamase) producing bacteria infection Current Visit: Yes Status: Acute (2) Altered mental status Current Visit: No Status: Acute Qualifiers: Altered mental status type: somnolence Qualified Code(s): R40.0 - Somnolence (3) Hyponatremia Current Visit: No Status: Acute (4) HTN (hypertension) Current Visit: No Status: Chronic Qualifiers: Hypertension type: essential hypertension (5) Hyperlipidemia Current Visit: No Status: Chronic Qualifiers: Hyperlipidemia type: unspecified Qualified Code(s): E78.5 - Hyperlipidemia, unspecified (6) Insulin dependent diabetes mellitus Current Visit: No Status: Chronic (7) BPH (benign prostatic hyperplasia) Current Visit: No Status: Suspected Qualifiers: Lower urinary tract symptom presence: symptoms present Lower urinary tract symptom detail: straining on urination Qualified Code(s): N40.1 - Benign prostatic hyperplasia with lower urinary tract symptoms; R39.16 - Straining to void Brief History of Present Illness: 65-year-old white male with history of multiple prior strokes was sent from facility for bladder distention related to a catheter blockage. Purulent sara inage was noted at meatus. Pt stated that he has not had drainage from catheter since yesterday and he was having pain due to distention. Pt is not ambulatory but is cooperative and is a moderately good historian. Catheter replaced in ER. Hospital Course: Patient of grown out ESBL E coli. Patient required PICC line. This was prolonging patient's hospital stay. We waited for 3 days prior to PICC line placement. The was done in the evening of July 31. intermediate will not take patient back. Discharge this morning. Continue antibiotic for 10 more days. Vital Signs/Physical Exam: Temp Pulse Resp BP Pulse Ox 98.1 F 70 18 178/84 H 97 08/01/21 08:43 08/01/21 08:43 08/01/21 08:43 08/01/21 08:43 08/01/21 08:43 General: Alert, Demented Laboratory Data at Discharge: WBC 4.40 K/uL (4.3-10.9) D 07/31/21 11:58 Hgb 10.6 g/dL (13.6-17.9) L 07/31/21 11:58 Hct 30.7 % (39.6-49.0) L 07/31/21 11:58 Plt Count 229 K/uL (152-406) 07/31/21 11:58 Sodium 140 mmol/L (136-145) 07/31/21 11:58 Potassium 3.8 mmol/L (3.5-5.1) 07/31/21 11:58 BUN 14 mg/dL (7-18) 07/31/21 11:58 Creatinine 0.64 mg/dL (0.55-1.3) 07/31/21 11:58 Glucose 105 mg/dL (74-106) 07/31/21 11:58 Total Bilirubin 0.6 mg/dL (0.2-1.0) 07/28/21 05:48 AST 20 U/L (15-37) 07/28/21 05:48 ALT 30 U/L (12-78) 07/28/21 05:48 Alkaline Phosphatase 84 U/L (45-117) 07/28/21 05:48 Home Medications: Aspirin [Low Dose Aspirin EC] 81 mg PO DAILY 09/13/20 Divalproex ER [Depakote *ER] 250 mg PO DAILY 09/13/20 Docusate [Colace Cap*] 100 mg PO DAILY 09/13/20 Lisinopril [Zestril] 20 mg PO DAILY 09/13/20 Melatonin 5 mg PO BEDTIME 09/13/20 Nifedipine Xl [Procardia XL*] 60 mg PO DAILY 09/13/20 traMADol HCL [Ultram*] 50 mg PO TID 09/13/20 Acetaminophen [Tylenol] 650 mg PO Q6HP PRN 09/22/20 Atorvastatin Calcium [Lipitor*] 40 mg PO BEDTIME 09/22/20 Divalproex ER [Depakote *ER] 500 mg PO BEDTIME 09/22/20 Linagliptin [Tradjenta] 5 mg PO DAILY 09/22/20 Omeprazole 20 mg PO DAILY 09/22/20 Oxybutynin Chloride [Ditropan*] 5 mg PO TID 09/22/20 Ascorbic Acid 500 mg PO DAILY 12/15/20 Bismuth Subsalicylate [Pepto-Bismol] 30 ml PO Q8H PRN 12/15/20 Hydralazine [Apresoline*] 25 mg PO BID 12/15/20 Magnesium Chloride 2 tab PO DAILY 30 Days #60 tab 12/15/20 Metoprolol Tartrate [Lopressor*] 50 mg PO BID 12/15/20 Potassium Chloride [Klor-Con M20] 20 meq PO DAILY 30 Days #30 tab.er.prt 12/15/20 Tramadol HCl [Ultram] 50 mg PO BEDTIME 12/15/20 Zinc Sulfate [Zinc Sulfate*] 220 mg PO DAILY 12/15/20 Calcium Carbonate [Tums Regular*] 1,000 mg PO TIDP PRN #0 tab 12/20/20 Loperamide [Imodium*] 2 mg PO Q8H PRN cap 12/20/20 metroNIDAZOLE [Flagyl*] 500 mg PO Q8H #21 tablet 12/21/20 Calcium Carbonate/Vitamin D3 [Calcium 600-Vit D3 400 Tablet] 1 each PO DAILY 07/27/21 Chlorpheniramine/Dextromethorp [Scot-Tussin Dm Liquid] 5 ml PO Q8HR 07/27/21 Ferrous Sulfate [Ferrous Sulfate*] 325 mg PO DAILY 07/27/21 Finasteride [Proscar] 5 mg PO DAILY 07/27/21 Ipratropium Joaquin 0.2 % IH Q8HR 07/27/21 Sertraline [Zoloft*] 50 mg PO DAILY 07/27/21 Tamsulosin HCl [Flomax] 0.4 mg PO DAILY 07/27/21 Physician Discharge Instructions: OK TO DC IV AND DC HOME FOLLOW-UP WITH usp provider in 1-2 days RETURN TO THE ER IF symptoms worsen CALL or TEXT DR. MENA AT [phone] IF ANY QUESTIONS REGARDING HOSPITAL STAY. PLEASE CALL THE FLOOR AT [phone] IF ANY MEDICATION OR NURSING QUESTIONS Diet: AHA Activity: Fall precautions Followup: NONE,NONE [Primary Care Provider] - Time spent managing pt's care (in minutes): 35
[2021-08-01 16:39] VITALS: BP 125/65; TEMP 98.5
== END 2021-08-01 18:13 | DRG 690 ==
LOC: ER 12:40 → ERHOLD 16:49 → 2ND 20:05
PROVIDERS: ADMIT Family Medicine; ATTEND Family Medicine
PROC: 02HV33Z Insertion of Infusion Device into Superior Vena Cava, Percutaneous Approach (ICD-10-PCS; principal; 2021-07-31)
DX: N39.0 Urinary tract infection, site not specified (principal); Z16.12 Extended spectrum beta lactamase (ESBL) resistance; E87.1 Hypo-osmolality and hyponatremia; B96.20 Unspecified Escherichia coli [E. coli] as the cause of diseases classified elsewhere; I10 Essential (primary) hypertension; F03.90 Unspecified dementia, unspecified severity, without behavioral disturbance, psychotic disturbance, mood disturbance, and anxiety; E78.5 Hyperlipidemia, unspecified; G40.909 Epilepsy, unspecified, not intractable, without status epilepticus; N40.1 Benign prostatic hyperplasia with lower urinary tract symptoms; R39.16 Straining to void; F32.A Depression, unspecified; E11.9 Type 2 diabetes mellitus without complications; Z86.73 Personal history of transient ischemic attack (TIA), and cerebral infarction without residual deficits; Z66 Do not resuscitate; Z20.822 Contact with and (suspected) exposure to COVID-19
CPT/HCPCS: 36415; 36569; 71045; 74177; 80048; 80053; 81003; 81015; 82565; 83605; 84145; 85025; 87040; 87077; 87086; 87088; 87186; 96374; 99285; J0360; J0696; J1650; J2185; J7030; U0003

== ENCOUNTER 2021-09-05 14:54 | Emergency (ER) | payer OTHER ==
[2021-09-05 15:58] LABS: Absolute Lymphocytes (CBC) 0.1 K/uL (0.7-4.9); Basophils % 0.3 % (0-1.3); Hematocrit 40.3 % (39.6-49.0); Lymphocytes % 3.8 % (15.3-44.8); MPV 7.2 fL (7.6-11.3); RBC Red Blood Cell Count 4.63 M/uL (4.33-5.43)
[2021-09-05 16:05] LABS: Albumin 3.2 g/dL (3.4-5.0); Bilirubin Direct 0.3 mg/dL (0-0.2); Potassium 4.1 mmol/L (3.5-5.1); Protein, Total 8.3 g/dL (6.4-8.2)
--- NOTE | 2021-09-05 16:45 | RAD REPORT ---
EXAM DESCRIPTION: CT - Abdomen Pelvis W Contrast - 09/05/2021 4:23 pm CLINICAL HISTORY: ABD PAIN COMPARISON: Abdomen Pelvis W Contrast dated 07/26/2021 TECHNIQUE: Biphasic, helical CT imaging of the abdomen and pelvis was performed following 100 ml non -ionic IV contrast. No oral contrast administered. All CT scans are performed using dose optimization technique as appropriate and may include automated exposure control or mA/KV adjustment according to patient size. FINDINGS: No suspicious findings in the lung bases. The liver, spleen, and pancreas show no suspicious findings. Cholecystectomy clips are present. No ab normal biliary tree dilatation. Renal function is symmetric and does not appear to be delayed. No solid mass lesion of either kidney identifiable. Small cyst present in the lower pole right kidney matches the recent comparison CT stud y. There is fullness of each renal pelvis and to a lesser degree each ureter without associated obstr ucting calculus. No pyelonephritis or acute parenchymal process. Urinary bladder is not dilated. Wall s of the urinary bladder are thickened and shaggy with edema and low-level enhancement seen. There is stranding and a minimal amount of fluid in the tissues adjacent to the bladder. No adrenal abnormali ties. Air in fluid dilate the stomach. No gastric wall thickening or mass. Outlet obstruction is not seen a nd this may be a gastric paresis affect. No acute small bowel findings noted. Appendicitis is not santa pected. There is a large amount of stool distending the sigmoid colon. A larger volume of stool dilat es the rectum to 9 cm. There is leakage of stool into the gluteal crease. No free air or pneumatosis. No mass or bulky lymphadenopathy. Small fat filled inguinal hernias are present. Disc and bone degenerative changes are present. No acute or destructive bone process. IMPRESSION: Cystitis findings are evident in a normal-sized urinary bladder. No asymmetric wall thi ckening or mass. Fullness of the bilateral renal pelves and ureters probably due to the affects of the cystitis. No ob structing calculus seen. Dilated stomach probably gastroparesis. An obstructing mass or stricture is not seen. Large stool volume in the rectosigmoid colon with the rectum dilated to 9 cm. There is stool leakage into the gluteal crease.
[2021-09-05 17:13] LABS: Blood Morphology Comment NOT SEEN (NOT SEEN); Platelet Estimate ADEQ; White Blood Cell Scan OK (OK)
[2021-09-05] MEDS ORDERED: MORPHINE 4 MG/ML SYR ONE (17:24)
[2021-09-05] MEDS ORDERED: NA CHLORIDE 0.9% 1,000 ML ONE (17:24)
[2021-09-05] MEDS ORDERED: CEFTRIAXONE 1000 MG/VIAL ONE (17:24)
[2021-09-05] MEDS ORDERED: ONDANSETRON 4 MG/2 ML VIAL ONE (17:24)
[2021-09-05] MEDS ORDERED: NA CHLORIDE 0.9% 50 ML ONE (17:25)
--- NOTE | 2021-09-05 19:01 | ER ---
Nurse's Notes [facility] Name: Raphael Hoyos Age: 65 yrs Sex: Male : 1955 Arrival Date: 09/05/2021 Time: 15:03 Bed 5 Private MD: Diagnosis: Acute cystitis with hematuria Presentation: 09/05 15:03 Chief complaint: EMS states: "pt reporting abdominal pain X 2 days. the pt's nurse jd3 reporting having a hard time irrigating his Wang. on attempt to restart a new Wang the nurse noted barry blood and resistance inserting the Wang at which point she called EMS.". Coronavirus screen: At this time, the client does not indicate any symptoms associated with coronavirus-19. Ebola Screen: Patient negative for fever greater than or equal to 101.5 degrees Fahrenheit, and additional compatible Ebola Virus Disease symptoms. Initial Sepsis Screen: Does the patient meet any 2 criteria? No. Patient's initial sepsis screen is negative. Does the patient have a suspected source of infection? No. Patient's initial sepsis screen is negative. Risk Assessment: Do you want to hurt yourself or someone else? Patient reports no desire to harm self or others. Onset of symptoms was September 04, 2021. 15:03 Method Of Arrival: EMS: [facility] jd3 15:03 Acuity: DANIELA 3 jd3 Historical: - Allergies: 15:11 No Known Allergies; jd3 - PMHx: 15:11 CVA; Myocardial infarction; jd3 - PSHx: 15:11 Cholecystectomy; jd3 - Immunization history:: Adult Immunizations up to date, Client reports receiving the 2nd dose of the Covid vaccine. - Social history:: Smoking status: Patient/guardian denies using tobacco, the patient reports quitting approximately 1 years ago, Patient/guardian denies using alcohol, street drugs, The patient lives with family. - Family history:: not pertinent. Screenin:19 Abuse screen: Denies threats or abuse. Nutritional screening: No deficits noted. jd3 Tuberculosis screening: No symptoms or risk factors identified. Fall Risk Ambulatory Aid- None/Bed Rest/Nurse Assist (0 pts). Gait- Normal/Bed Rest/Wheelchair (0 pts) Mental Status- Oriented to own ability (0 pts). Total Pal[place]ios Fall Scale indicates No Risk (0-24 pts). Assessment: 15:17 General: Appears uncomfortable, Behavior is calm, cooperative, appropriate for age. jd3 Pain: Complains of pain in suprapubic area, right lower quadrant and left lower quadrant Quality of pain is described as sharp, tender. Neuro: Level of Consciousness is awake, alert, obeys commands, Oriented to person, place, time, situation. Cardiovascular: Denies chest pain, Capillary refill < 3 seconds Thorax. Respiratory: Airway is patent Respiratory effort is even, unlabored, Respiratory pattern is regular, symmetrical, Denies cough, shortness of breath. GI: Abdomen is round Abdomen is tender to palpation in suprapubic area, right lower quadrant and left lower quadrant. : Urine is barry blood. EENT: No signs and/or symptoms were reported regarding the EENT system. Derm: Skin is intact, Skin is dry, Skin is normal, Skin temperature is warm. Musculoskeletal: No signs and/or symptoms reported regarding the musculoskeletal system. 15:21 Reassessment: pt now reporting chest pain. EKG in process. jd3 17:47 Reassessment: Patient appears in no apparent distress at this time. Patient and/or jd3 family updated on plan of care and expected duration. Pain level reassessed. Patient is alert, oriented x 3, equal unlabored respirations, skin warm/dry/pink. pt reporting feeling some relief after Wang insertion. 18:51 Reassessment: Patient appears in no apparent distress at this time. Patient and/or jd3 family updated on plan of care and expected duration. Pain level reassessed. Patient is alert, oriented x 3, equal unlabored respirations, skin warm/dry/pink. Patient states feeling better. 19:49 Reassessment: attempted to give report to [facility], phone rang for several em minutes without answer, will try again later. 20:08 Reassessment: report given to Lizz at [facility], we will arrange transportation. em Vital Signs: 15:15 BP 165 / 110; Pulse 76; Resp 20 S; Temp 98.7(O); Pulse Ox 98.7% on R/A; Weight 102.97 jd3 kg (R); Height 5 ft. 9 in. (175.26 cm) (R); Pain 8/10; 17:48 BP 89 / 61; Pulse 79; Resp 19 S; Pulse Ox 95% on R/A; jd3 18:51 BP 96 / 67; Pulse 78; Resp 16 S; Pulse Ox 96% on R/A; jd3 20:28 BP 98 / 62; Pulse 78; Resp 20; Temp 98.6(O); Pulse Ox 98% on R/A; Pain 0/10; kc4 15:15 Body Mass Index 33.52 (102.97 kg, 175.26 cm) jd3 ED Course: 15:03 Patient arrived in ED. jd3 15:11 Triage completed. jd3 15:11 Ruiz Oneal PA is PHCP. cp 15:11 Fish Cartagena MD is Attending Physician. cp 15:16 Arm band placed on. jd3 15:16 Bladder scan completed. 670 ml. jd3 15:19 Patient has correct armband on for positive identification. Bed in low position. Call jd3 light in reach. Side rails up X2. Adult w/ patient. 15:22 Paolo Tatum, RN is Primary Nurse. jd3 15:30 Inserted saline lock: 22 gauge in right antecubital area, using aseptic technique. jd3 Blood collected. 16:15 3-way catheter inserted, using sterile technique, 18 Fr. Specimen obtained. jd3 16:23 CT Abd/Pelvis - IV Contrast Only In Process Unspecified. EDMS 20:26 No provider procedures requiring assistance completed. IV discontinued, intact, kc4 bleeding controlled, No redness/swelling at site. Pressure dressing applied. Administered Medications: 17:46 Drug: NS 0.9% 1000 ml Route: IV; Rate: 1 bolus; Site: right antecubital; jd3 18:45 Follow up: Response: No adverse reaction; IV Status: Completed infusion; IV Intake: jd3 1000ml 17:47 Drug: morphine 4 mg Route: IVP; Site: right antecubital; jd3 18:40 Follow up: Response: No adverse reaction; RASS: Alert and Calm (0) jd3 17:47 Drug: Zofran (Ondansetron) 4 mg Route: IVP; Site: right antecubital; jd3 18:40 Follow up: Response: No adverse reaction jd3 17:47 Drug: Rocephin (cefTRIAXone) 1 grams Route: IV; Rate: calculated rate; Site: right jd3 antecubital; 20:30 Follow up: IV Status: Completed infusion kc4 Intake: 18:45 IV: 1000ml; Total: 1000ml. jd3 Outcome: 19:01 Discharge ordered by . pamela 19:43 Discharged to snf. attempted to call report. no answer for 3 min. continued to tw5 ring 20:27 Discharged to snf. report given to [facility] kc4 20:27 Condition: stable 20:27 Discharge instructions given to snf, Instructed on discharge instructions, follow up and referral plans. Wang care Demonstrated understanding of instructions, follow-up care, medications, Wang care Prescriptions given X 1. 20:30 Patient left the ED. kc4 Signatures: Dispatcher [employer] EDDg Bradshaw RN RN Ruiz Pompa PA PA cp Davies, Jonathon, RN RN jd3 Alzahri, Mohammad, MD MD ma2 Chuman, Kourtney kc4 Lulú Casarez tw5 Corrections: (The following items were deleted from the chart) 15:11 15:03 Onset of symptoms was September 05, 2021 jd3 jd3 17:56 17:47 Reassessment: Patient appears in no apparent distress at this time. Patient jd3 and/or family updated on plan of care and expected duration. Pain level reassessed. Patient is alert, oriented x 3, equal unlabored respirations, skin warm/dry/pink. pt reporting feeling some relief after Wang insertion jd3
--- NOTE | 2021-09-05 19:01 | EDPHYS ---
Physician Documentation [facility] Name: Raphael Hoyos Age: 65 yrs Sex: Male : 1955 Arrival Date: 09/05/2021 Time: 15:03 Bed 5 Private MD: ED Physician Fish Cartagena HPI: 09/05 16:18 This 65 yrs old Male presents to ER via EMS with complaints of Abdominal Pain.ma2 16:18 The patient presents with abdominal pain abdominal distention. Onset: The ma2 symptoms/episode began/occurred gradually, 1 day(s) ago. Associated signs and symptoms: Pertinent negatives: anorexia, chest pain, constipation, dysuria, fever, vomiting, vomiting blood. Severity of pain: At its worst the pain was moderate in the emergency department the pain is unchanged. The patient has experienced similar episodes in the past. Also has a chronic Wang catheter, for almost 1 year since last Covert. Because he has abdominal swelling they try to replace it, when they try to inflate the balloon, there was resistance, and then patient has hematuria. No bleeding at this time.. Historical: - Allergies: 15:11 No Known Allergies; jd3 - PMHx: 15:11 CVA; Myocardial infarction; jd3 - PSHx: 15:11 Cholecystectomy; jd3 - Immunization history:: Adult Immunizations up to date, Client reports receiving the 2nd dose of the Covid vaccine. - Social history:: Smoking status: Patient/guardian denies using tobacco, the patient reports quitting approximately 1 years ago, Patient/guardian denies using alcohol, street drugs, The patient lives with family. - Family history:: not pertinent. ROS: 16:18 Constitutional: Negative for fever, chills, and weight loss, Eyes: Negative for injury, ma2 pain, redness, and discharge, ENT: Negative for injury, pain, and discharge, Neck: Negative for injury, pain, and swelling, Cardiovascular: Negative for chest pain, palpitations, and edema, Respiratory: Negative for shortness of breath, cough, wheezing, and pleuritic chest pain. 16:18 All other systems are negative. Exam: 16:18 Constitutional: This is a well developed, well nourished patient who is awake, alert, ma2 and in no acute distress. Head/Face: Normocephalic, atraumatic. Eyes: Pupils equal round and reactive to light, extra-ocular motions intact. Lids and lashes normal. Conjunctiva and sclera are non-icteric and not injected. Cornea within normal limits. Periorbital areas with no swelling, redness, or edema. ENT: Nares patent. No nasal discharge, no septal abnormalities noted. Tympanic membranes are normal and external auditory canals are clear. Oropharynx with no redness, swelling, or masses, exudates, or evidence of obstruction, uvula midline. Mucous membranes moist. Neck: Trachea midline, no thyromegaly or masses palpated, and no cervical lymphadenopathy. Supple, full range of motion without nuchal rigidity, or vertebral point tenderness. No Meningismus. Chest/axilla: Normal chest wall appearance and motion. Nontender with no deformity. No lesions are appreciated. Cardiovascular: Regular rate and rhythm with a normal S1 and S2. No gallops, murmurs, or rubs. Normal PMI, no JVD. No pulse deficits. Respiratory: Lungs have equal breath sounds bilaterally, clear to auscultation and percussion. No rales, rhonchi or wheezes noted. No increased work of breathing, no retractions or nasal flaring. Back: No spinal tenderness. No costovertebral tenderness. Full range of motion. Skin: Warm, dry with normal turgor. Normal color with no rashes, no lesions, and no evidence of cellulitis. MS/ Extremity: Pulses equal, no cyanosis. Neurovascular intact. Full, normal range of motion. Neuro: Awake and alert, GCS 15, oriented to person, place, time, and situation. Cranial nerves II-XII grossly intact. Motor strength 5/5 in all extremities. Sensory grossly intact. Cerebellar exam normal. Normal gait. 16:18 Abdomen/GI: Inspection: distension, Bowel sounds: active, Palpation: moderate abdominal tenderness, in all quadrants, Liver: no appreciated palpable abnormalities, Hernia: not appreciated. Vital Signs: 15:15 BP 165 / 110; Pulse 76; Resp 20 S; Temp 98.7(O); Pulse Ox 98.7% on R/A; Weight 102.97 jd3 kg (R); Height 5 ft. 9 in. (175.26 cm) (R); Pain 8/10; 17:48 BP 89 / 61; Pulse 79; Resp 19 S; Pulse Ox 95% on R/A; jd3 18:51 BP 96 / 67; Pulse 78; Resp 16 S; Pulse Ox 96% on R/A; jd3 20:28 BP 98 / 62; Pulse 78; Resp 20; Temp 98.6(O); Pulse Ox 98% on R/A; Pain 0/10; kc4 15:15 Body Mass Index 33.52 (102.97 kg, 175.26 cm) j MDM: 15:18 Patient medically screened. [facility] 16:18 Differential diagnosis: coronary artery disease, gastritis, gastroesophageal reflux ma2 disease, Hepatitis, Irritable bowel syndrome, Prostatitis. 19:00 Data reviewed: vital signs, nurses notes. Counseling: I had a detailed discussion with ma the patient and/or guardian regarding: the historical points, exam findings, and any diagnostic results supporting the discharge/admit diagnosis, the presence of at least one elevated blood pressure reading (>120/80) during this emergency department visit, the need for outpatient follow up. Response to treatment: the patient's symptoms have markedly improved after treatment. 09/05 15:19 Order name: Basic Metabolic Panel; Complete Time: 16:15 nv2 09/05 15:19 Order name: CBC with Diff; Complete Time: 17:27 nv2 09/05 15:19 Order name: Hepatic Function; Complete Time: 16:15 ma2 09/05 15:19 Order name: Lipase; Complete Time: 16:15 nv2 09/05 15:20 Order name: Troponin (emerg Dept Use Only); Complete Time: 16:47 nv2 09/05 17:13 Order name: CBC Smear Scan; Complete Time: 17:27 EDCT 09/05 15:19 Order name: IV Saline Lock; Complete Time: 15:39 nv2 09/05 15:19 Order name: Labs collected and sent; Complete Time: 15:39 ma2 09/05 15:19 Order name: CT Abd/Pelvis - IV Contrast Only; Complete Time: 16:47 nv2 09/05 17:47 Order name: Urine Culture [facility] 09/05 15:19 Order name: Urine Dipstick-Ancillary (obtain specimen); Complete Time: 17:55 ma2 09/05 15:20 Order name: EKG - Nurse/Tech; Complete Time: 15:39 ma2 Administered Medications: 17:46 Drug: NS 0.9% 1000 ml Route: IV; Rate: 1 bolus; Site: right antecubital; jd3 18:45 Follow up: Response: No adverse reaction; IV Status: Completed infusion; IV Intake: jd3 1000ml 17:47 Drug: morphine 4 mg Route: IVP; Site: right antecubital; jd3 18:40 Follow up: Response: No adverse reaction; RASS: Alert and Calm (0) jd3 17:47 Drug: Zofran (Ondansetron) 4 mg Route: IVP; Site: right antecubital; jd3 18:40 Follow up: Response: No adverse reaction jd3 17:47 Drug: Rocephin (cefTRIAXone) 1 grams Route: IV; Rate: calculated rate; Site: right [facility] antecubital; 20:30 Follow up: IV Status: Completed infusion kc4 Disposition Summary: 09/05/21 19:01 Discharge Ordered Location: Home ma2 Condition: Stable ma2 Diagnosis - Acute cystitis with hematuria ma2 Followup: ma2 - With: Private Physician - When: Tomorrow - Reason: Continuance of care Discharge Instructions: - Discharge Summary Sheet ma2 - Urinary Tract Infection, Adult ma2 Forms: - Medication Reconciliation Form ma2 - Thank You Letter ma2 - Antibiotic Education ma2 - Prescription Opioid Use ma2 - SBAR form bs2 Prescriptions: - Cipro 500 mg Oral Tablet - take 1 tablet by ORAL route every 12 hours for 7 days; 14 tablet; Refills: 0, ma2 Product Selection Permitted Signatures: Dispatcher [employer] Ryder Buckley RN RN [id number] Paolo Tatum RN RN jd3 Fish Cartagena MD MD ma2 Nurys Martin kc4
[2021-09-05 20:41] VITALS: BP 98/62; TEMP 98.6; O2SAT 98
--- OUTSIDE RECORDS SUMMARY | 2021-09-07 21:44 | XMS REPORT | Continuity of Care Document ---
:1955 Author Organization [facility] Address [address] [place] [address] Care Team Providers Name Role Phone JESSE MERAZ Attending Clinician Unavailable Osei Cuevas Attending Clinician Bryant ZAZUETA Attending Clinician Giselle ZAZUETA Attending Clinician Osei CLAROS Attending Clinician Unavailable JESSE MERAZ Admitting Clinician Unavailable Bryant ZAZUETA Admitting Clinician Payers Payer Name Policy Type Policy Number Effective Date Ex[facility] Date [facility] [id number] Problems Condition Condition Condition Status Onset Resolution Last Treating Co mments Source Name Details Category Date Date Treatment Clinician Date Complicate Complicate Disease Active U nivers d UTI d UTI 1-21 ity of (urinary (urinary 00:00: [place] tract tract 00 Medical infection) infection) Br anch Obesity Obesity Disease Active 2015-10 Univers (BMI (BMI 2-20 ity of 30-39.9) 30-39.9) 00:00: [address] Stroke Stroke Disease Active 2015-10 Univers 2-20 ity of 00:00: [address] Left arm Left arm Disease Active 2015-10 Unive rs weakness weakness 2-19 ity of 00:00: [address] Allergies, Adverse Reactions, Alerts Allergy Allergy Status Severity Reaction(s) Onset Inactive Treating Comm ents Source Name Type Date Date Clinician NO KNOWN Allergy Active [facility] NO KNOWN Drug Active [facility] ALLERGIE Class ity of S [facility] Social History Social Habit Start Date Stop Date Quantity Comments Source Sex Assigned At Universit y of [facility] Exposure to Not sure [facility] SARS-CoV-2 (event) [facility] History of tobacco Cigarette Smoker University of use [place] [facility] History SDOH 2020-11-15 2020-11-15 4 University o f Financial 00:00:00 00:00:00 [place] [facility] History SDOH Food 2020-11-15 2020-11-15 1 Univers ity of Worry 00:00:00 00:00:00 [place] [facility] History SDOH Food 2020-11-15 2020-11-15 1 Univers ity of Scarcity 00:00:00 00:00:00 [place] [facility] History SDOH 2020-11-15 2020-11-15 2 University o f Transport Med 00:00:00 00:00:00 [place] [facility] al [facility] History SDOH 2020-11-15 2020-11-15 2 University o f Transport Non-Med 00:00:00 00:00:00 [facility] Branch Cigarettes smoked 2020-11-15 2020-11-15 Univers ity of current (pack per 00:00:00 00:00:00 [facility] ) - Reported Branch Cigarette 2020-11-15 2020-11-15 University of pack-years 00:00:00 00:00:00 [facility] Tobacco use and 2020-11-15 2020-11-15 Never used Universit y of exposure 00:00:00 00:00:00 [facility] Alcohol intake 2020-11-15 2020-11-15 Current drinker Unive rsity of 00:00:00 00:00:00 of alcohol [facility] ([facility] [place] Smoking Status Start Date Stop Date Source Former smoker 2020-11-15 00:00:00 2020-11-15 00:00:00 Universi ty of [facility] Branch Medications Ordered Filled Start Stop Current Ordering Indication Dosage Frequency Signature Comments Components Source Medication Medication Date Date Medication? Clinician (SIG) Name Name docusate Yes 100mg Take 100 Univ ers (COLACE) 1-25 mg by ity of 100 mg 21:24: mouth [place] capsule 51 daily. Medical Branch divalproex Yes 250mg Take 250 Un osmar ER 250 mg 1-25 mg by ity of 24 hr 21:24: mouth [place] tablet 51 every 24 Medical (twenty-fo Branch ur) hours. divalproex Yes 500mg Take 500 Un osmar 500 mg EC 1-25 mg by ity of tablet 21:24: mouth at [place] [address] bedtime. Medical Branch hydrALAZINE 0 Yes 25mg Take 25 mg Univers 25 mg 1-25 by mouth 2 ity of tablet 21:24: (two) [place] [address] times Medical daily as Branch needed (SBP >170 and/or DBP >100). lisinopriL 0 Yes 20mg Take 20 mg U nivers 20 mg 1-25 by mouth ity of tablet 21:24: daily. [place] [address] Medical Branch Melatonin 5 2020-0 Yes 5mg Take 5 mg U nivers mg Cap 1-25 by mouth ity of 21:24: at [place] [address] bedtime. Medical Branch metoprolol Yes 50mg Take 50 mg U nivers tartrate 1-25 by mouth 2 ity o f (LOPRESSOR) 21:24: (two) [place] 50 mg 51 times Medical tablet daily. Branch NIFEdipine Yes 60mg Take 60 mg U nivers ER 60 mg 1-25 by mouth 2 ity o f tablet 21:24: (two) [place] [address] times Medical daily. Branch omeprazole 0 Yes 20mg Take 20 mg U nivers 20 mg 1-25 by mouth ity of capsule 21:24: daily. [place] [address] Medical Branch oxybutynin 0 Yes 5mg Take 5 mg Un osmar chloride 5 1-25 by mouth 3 ity of mg tablet 21:24: (three) [place] [address] times Medical daily. Branch linaGLIPtin 0 Yes 5mg Take 5 mg U nivers (TRADJENTA) 1-25 by mouth ity of 5 mg tablet 21:24: [place] traMADoL 50 2020-0 Yes 50mg Take 50 mg Univers mg tablet 1-25 by mouth 2 ity of 21:24: (two) [place] [address] times Medical daily. Branch ascorbic 0 Yes 500mg Take 500 Univ ers acid, 1-25 mg by ity of vitamin C, 21:24: mouth [place] (VITAMIN C) daily. Medica l 500 mg Branch tablet Zinc 0 Yes 220mg Take 220 Univers Sulfate 220 1-25 mg by ity of mg Tab 21:24: mouth [place] [address] daily. Medical Branch traMADoL 0 2020- No 50mg 50 mg, Univer s (ULTRAM) 11-17 Oral, ity of tablet 50 15:32: 15:31 Q8HPRN, [place] mg 42 :42 Starting Medical [facility] 11/17/20 at 0932, Until [facility] 11/19/20 at 0931, Routine, Pain (scale 4-6) cefTRIAXone 2020-0 Yes 1000mg 1,000 mg, Univers (ROCEPHIN) 11-17 IV ity of 1,000 mg in 15:30: Piggyback, [place] NaCl 0.9% 00 Q24H ABX, Medic al (NS) 50 mL First dose [facility] MINI-BAG on [facility] 11/17/20 at 0930, Until Discontinu ed, 50 mL
R willa for Anti-Infec tive: Empiric Therapy for Suspected Infection< br>Empiric Therapy Site: Urine
D uration of therapy: 72 hours zinc 2020- Yes 220mg 220 mg, Univers sulfate 11-17 Oral, ity of (ORAZINC) 15:00: DAILY, [place] capsule 220 00 First dose Me dical mg on [facility] 11/17/20 at 0900, Until Discontinu ed omeprazole 0 Yes 20mg 20 mg, Unive rs (PRILOSEC) 11-17 Oral, ity of capsule 20 15:00: DAILY, [place] mg 00 First dose Medical on [facility] 11/17/20 at 0900, Until Discontinu ed, Routine docusate Yes 100mg 100 mg, Unive rs (COLACE) 11-17 Oral, ity of capsule 100 15:00: DAILY, [place] mg 00 First dose Medical on [facility] 11/17/20 at 0900, Until Discontinu ed, Routine aspirin 0 Yes 81mg 81 mg, Univers chewable 11-17 Oral, ity of tablet 81 15:00: DAILY, [place] mg 00 First dose Medical on [facility] 11/17/20 at 0900, Until Discontinu ed, Routine ascorbic 2020-0 Yes 500mg 500 mg, Unive rs acid 11-17 Oral, ity of (vitamin C) 15:00: DAILY, [place] (VITAMIN C) 00 First dose Me dical tablet 500 on [facility] 11/17/20 at 0900, Until Discontinu ed, Routine melatonin 2020-0 Yes 6mg 6 mg, Univers (MELATIN) -23 Oral, QHS, ity of tablet 6 mg 03:00: First dose [place] 00 on Thu Medical 11/16/20 at Branch 2100, Until Discontinu ed divalproex 2020-0 Yes 500mg 500 mg, Uni vers (DEPAKOTE) 11-17 Oral, QHS, ity of [place] tablet 03:00: [place] 500 mg 00 on Thu Medical 11/16/20 at Branch 2100, Until Discontinu ed, Routine NIFEdipine 2020-0 Yes 60mg 60 mg, Unive rs ER tablet 11-17 Oral, BID, ity of 60 mg 02:00: First dose [place] 00 on Thu Medical 11/16/20 at Branch 2000, Until Discontinu ed, Routine atorvastati 0 Yes 20mg 20 mg, Univ ers n (LIPITOR) 11-16 Oral, QPM, it y of tablet 20 23:00: First dose [place] mg 00 on Thu [facility] 11/16/20 at Branch 1700, Until Discontinu ed, Routine oxybutynin 0 Yes 5mg 5 mg, Univer s chloride 11-16 Oral, TID, ity o f (DITROPAN) 20:00: First dose [place] tablet 5 mg [facility] Branch 1400, Until Discontinu ed, Routine divalproex 0 Yes 250mg 250 mg, Uni vers ER 11-16 Oral, ity of (DEPAKOTE 18:30: Q24H, [place] ER) 24 hr 00 First dose Medi jadiel tablet 250 on Fri [facility] 11/16/20 at 1230, Until Discontinu ed, Routine metoprolol 0 Yes 50mg 50 mg, Unive rs tartrate 11-16 Oral, BID, ity o f (LOPRESSOR) 17:30: First dose [place] tablet 50 00 (after Medical mg last Branch modificati on) on Thu11/16/20 at 1130, Until Discontinu ed, Routine lisinopriL 2020-0 Yes 20mg 20 mg, Unive rs (PRINIVIL,Z 22 Oral, ity of ESTRIL) 17:30: DAILY, [place] tablet 20 00 First dose Medi jadiel mg (after Branch last modificati on) on Thu11/16/20 at 1130, Until Discontinu ed, Routine NAPROXEN 2020- No Take by [facility] ers ORAL 11-16 mouth. ity of 17:27: 00:00 [place] 32 :00 [facility] Branch hydrALAZINE Yes 25mg 25 mg, [facility] ers (APRESOLINE 11-16 Oral, ity of ) tablet 25 17:25: BIDPRN, [place] mg 29 Starting Medical [facility] 11/16/20 at 1125, Until Discontinu ed, Routine, SBP >170 and/or DBP >100 enoxaparin Yes 40mg 40 mg, Unive rs (LOVENOX) 11-15 Subcutaneo ity of injection 23:00: us, DAILY, [place] 40 mg 00 First dose Medical on [facility] 11/15/20 at 1700, Until Discontinu ed, Routine docusate 2020- No 100mg 100 mg, [facility] ers (COLACE) 11-15 Oral, ity of capsule 100 15:00: 17:28 DAILY, [place] mg 00 :05 First dose Medical on [facility] 11/15/20 at 0900, Until Discontinu ed, Routine Polyethylen 2020- No 17g 17 g, [facility] ers e Glycol 11-15 Oral, ity of 3350 15:00: 15:13 DAILY, 1 [place] (MIRALAX) 00 :00 dose, Medical powder 17 g First dose Br anch on [facility] 11/15/20 at 0900, Routine piperacilli 2020- No 3.375g 3.375 g, Univers n-tazobacta 11-15 IV ity of m (ZOSYN) 14:00: 14:15 Piggyback, [place] 3.375 g in 00 :39 Q6H ABX, Medic al NaCl 0.9% First dose Bran ch (NS) 100 mL (after MINI-BAG last reorder) on [facility] 11/15/20 at 0800, Until Discontinu ed, 100 mL
Reas on for Anti-Infec tive: Documented Infection< br>Documen arnoldo Infection Site: Urine
D uration of Therapy: Other (see Comments) NaCl 0.9% 2020- No 2000mL at 100 Uni vers (NS) IV 11-15 mL/hr, IV ity of infusion 12:45: 11:54 Infusion, [place] 2,000 mL 00 :00 ONCE, 1 Medical dose, [place] Branch 11/15/20 at 0645, Routine NaCl 0.9% 0 Yes 500mL at 999 Unive rs (NS) IV - mL/hr, IV ity of infusion 12:32: Infusion, [place] 500 mL 33 PRN - SEE Medical INSTRUCTIO Branch NS, 1 dose, Starting [place] 11/15/20 at 0632, Until Discontinu ed, Routine Polyethylen Yes 17g 17 g, Unive rs e Glycol 11-15 Oral, ity of 3350 10:47: [id number], [place] (MIRALAX) 45 Starting Medica l powder 17 g [place] Branch 11/15/20 at 0447, Until Discontinu ed, Routine, Constipati on glucagon Yes 1mg 1 mg, Univers (GLUCAGEN 11-15 Intramuscu ity of DIAGNOSTIC 10:42: lar, PRN, [place] KIT) 36 Starting Medical injection 1 [place] Branch mg 11/15/20 at 0442, Until Discontinu ed, TONI, Blood Glucose < or = 70 mg/dL and patient is unable to swallow or has mental changes. dextrose 50 Yes 25mL 25 mL, Univ ers % in water 11-15 Slow IV ity of (D50W) 10:42: Push, PRN, [place] injection 36 Starting Medica l 25 mL [place] Branch 11/15/20 at 0442, Until Discontinu ed, TONI, Blood Glucose < or = 70 mg/dL and patient is unable to swallow or has mental status changes. traMADoL 2020- No 50mg 50 mg, Univer s (ULTRAM) 11-15 Oral, ity of tablet 50 10:42: 10:41 Q8HPRN, [place] mg 10 :10 Starting Medical [place] Branch 11/15/20 at 0442, Until 11/17/20 at 0441, Routine, Pain (scale 4-6) acetaminoph Yes 650mg 650 mg, Un osmar en 11-15 Oral, ity of (TYLENOL) 10:42: Q6HPRN, [place] tablet 650 06 Starting Medic al mg [place] Branch 11/15/20 at 0442, Until Discontinu ed, Routine, Pain (scale 1-3) piperacilli 2020- No 3.375g 3.375 g, Univers n-tazobacta 11-15 IV ity of m (ZOSYN) 08:15: 07:54 Piggyback, [place] 3.375 g in 00 :00 ONCE, 1 Medica l NaCl 0.9% dose, [place] Branc h (NS) 100 mL 11/15/20 at MINI-BAG 0215, 100 mL
Reas on for Anti-Infec tive: Documented Infection< br>Documen arnoldo Infection Site: Abdominal< br>Duratio n of Therapy: Other (see Comments) ondansetron 2020- No 4mg 4 mg, Slow Univers (ZOFRAN 11-15 IV Push, ity of (PF)) 07:30: 06:38 ONCE, 1 [place] injection 4 00 :00 dose, [place] Med ical mg 11/15/20 at Branch 0130, TONI morpHINE 2020- No 4mg 4 mg, Slow Un osmar injection 4 11-15 IV Push, ity of mg 07:30: 06:38 ONCE, 1 [place] 00 :00 dose, [place] Medical 11/15/20 at Branch 0130, STAT NaCl 0.9% 2020- No 2000mL at 999 Uni vers (NS) bolus 11-15 mL/hr, ity of infusion 07:15: 07:44 2,000 mL, [place] 2,000 mL 00 :00 IV Medical Infusion, Branch ONCE, 1 dose, [place] 11/15/20 at 0115, TONI NaCl 0.9% 2020- No 1000mL at 999 Uni vers (NS) bolus 11-15 mL/hr, ity of infusion 06:30: 09:07 1,000 mL, [place] 1,000 mL 00 :00 IV Medical Infusion, Branch ONCE, 1 dose, [place] 11/15/20 at 0030, TONI aspirin 81 2015-10 Yes 81mg Take 1 Unive rs mg chewable 2-22 tablet by ity of tablet 00:00: mouth [place] 00 daily. Medical Branch atorvastati 2015-10 Yes 20mg Take 1 Univ ers n 20 mg 2-22 tablet by ity of tablet 00:00: mouth [place] 00 every Medical evening. Branch amLODIPine 2015-10- No 10mg Take 1 Univ ers 10 mg 2-16 11- tablet by ity of tablet 00:00: 00:00 mouth [place] 00 :00 daily. Medical Branch baclofen 10 2015-10- No 10mg Take 1 Uni vers mg tablet -16 11- tablet by ity of 00:00: 00:00 mouth 3 [place] 00 :00 (three) Medical times Branch daily. Vital Signs Vital Name Observation Time Observation Value Comments Source WEIGHT 2020-08-07 06:00:00 117 kg WEIGHT 2020-08-06 06:00:00 117.4 kg HEIGHT 2020-08-05 12:30:00 170.2 cm WEIGHT 2020-08-05 12:30:00 121.74 kg Systolic blood 2020-11-19 17:26:00 126 mm[Hg] Univer sity of pressure [facility] Diastolic blood 2020-11-19 17:26:00 71 mm[Hg] Unive rsity of pressure [facility] Heart rate 2020-11-19 17:26:00 60 /min [facility] Body temperature 2020-11-19 17:26:00 36.11 Tanika [facility] Respiratory rate 2020-11-19 17:26:00 18 /min [facility] Oxygen saturation in 2020-11-19 17:26:00 95 /min [facility] Arterial blood by [facility] Pulse oximetry Branch Body weight 2020-11-19 09:42:00 107.457 kg [facility] BMI 2020-11-19 09:42:00 33.99 kg/m2 [facility] Body height 2020-11-15 10:45:00 177.8 cm [facility] WEIGHT 2020-08-07 06:00:00 117 kg WEIGHT 2020-08-06 06:00:00 117.4 kg HEIGHT 2020-08-05 12:30:00 170.2 cm WEIGHT 2020-08-05 12:30:00 121.74 kg Procedures Procedure Date / Time Performing Clinician Source Performed CBC WITH DIFF 2020-11-19 11:39:[facility] (NA, 2020-11-19 09:39:00 Edionwe, [facility] K, CL, CO2, GLUCOSE, BUN, Medica l Branch CREATININE, CA) BASIC METABOLIC PANEL (NA, 2020-11-18 09:29:00 Edionwe, [facility] K, CL, CO2, GLUCOSE, BUN, Medica l Branch CREATININE, CA) CBC WITH DIFF 2020-11-18 09:29:00 Edionnestor [facility] LACTIC ACID WHOLE BLOOD 2020-11-18 09:29:00 Maxim Guadarrama [facility] BASIC METABOLIC PANEL (NA, 2020-11-17 10:43:00 Edionwe, [facility] K, CL, CO2, GLUCOSE, BUN, Medica l Branch CREATININE, CA) CBC WITH DIFF 2020-11-17 10:43:00 Bryant [facility] POCT GLUCOSE (AUTOMATED) 2020-11-16 22:33:00 Edcheryl [facility] POCT GLUCOSE (AUTOMATED) 2020-11-16 17:20:00 Edcheryl [facility] US RETROPERITONEAL LIMITED 2020-11-16 15:34:20 Maury Desai [facility] POCT GLUCOSE (AUTOMATED) 2020-11-16 13:27:00 Edionnestor [facility] BASIC METABOLIC PANEL (NA, 2020-11-16 09:19:00 Edionnestor, [facility] K, CL, CO2, GLUCOSE, BUN, Medica l Branch CREATININE, CA) CBC WITH DIFF 2020-11-16 09:19:00 Bryant [facility] GLYCOSYLATED HEMOGLOBIN 2020-11-16 09:19:00 Mell Hernandez [facility] (A1C) [facility] POCT GLUCOSE (AUTOMATED) 2020-11-15 22:57:00 Jose GuadalupeshyamnestorDeborah [facility] POCT GLUCOSE (AUTOMATED) 2020-11-15 17:37:00 BryantRamirezbelen [facility] POCT GLUCOSE (AUTOMATED) 2020-11-15 13:52:00 BryantDeborah [facility] LACTIC ACID WHOLE BLOOD 2020-11-15 11:04:00 Jessica Enamorado [facility] CT ABDOMEN PELVIS WO 2020-11-15 07:18:39 Sharon Claros [facility] CONTRAST [facility] BLOOD CULTURE SCREEN 2020-11-15 06:36:00 Sharon Claros [facility] URINALYSIS 2020-11-15 06:36:00 Jessica Enamorado [facility] URINE CULTURE 2020-11-15 06:36:00 Jessica Enamorado [facility] COVID-19 (ID NOW RAPID 2020-11-15 06:36:00 Jessica Enamorado [facility] TESTING) [facility] LAB ONLY COVID 2020-11-15 06:36:00 Jessica Enamorado [facility] INTERPRETATION [facility] COMP. METABOLIC PANEL 2020-11-15 06:33:00 Jessica [facility] ([id number]) [facility] CBC WITH DIFF 2020-11-15 06:33:00 Jessica Enamorado [facility] LACTIC ACID WHOLE BLOOD 2020-11-15 06:32:00 Jessica Enamorado [facility] Encounters Start End Encounter Admission Attending Care Care Encounter Source Date/Time Date/Time Type Type Clinicians Facility Department ID 2020-08-05 Inpatient ER ADONIS MERAZ Cardiac ICU [id number] [facility] 11:54:00 BONITA 2020-11-15 2020-11-19 [facility] Sharon Claros [facility] [id number] [facility] 00:08:00 15:21:00 Encounter Deborah Hurtado [id number] itMaury Phillips [id number] [facility] [id number] [facility] 081 Branch 2020-11-15 2020-11-15 Emergency X HYACINTH [facility] ERT [id number] Univers 00:08:00 00:08:00 SHARON cannonbelen of [facility] Results Test Description Test Time Test Comments Results Result Comments Source CBC with Differential 2020-11-19 12:32:00 Test Item Value Reference Range Interpretation Comme nts WBC (test code = 6690-2) See_Comment [A utomated message] The system which ge nerated this result transmit arnoldo reference range: 4.20 - 1 0.70 10*3/?L. The reference r alanna was not used to interpr et this result as normal/abnor mal. RBC (test code = 789-8) See_Comment L [Au tomated message] The system which ge nerated this result transmit arnoldo reference range: 4.26 - 5 .52 10*6/?L. The reference r alanna was not used to interpr et this result as normal/abnor mal. HGB (test code = 718-7) 9.7 g/dL 12.2-16.4 L HCT (test code = 4544-3) 28.2 % 38.4-49.3 L MCV (test code = 787-2) 84.7 fL 81.7-95.6 MCH (test code = 785-6) 29.1 pg 26.1-32.7 MCHC (test code = 786-4) 34.4 g/dL 31.2-35 RDW-SD (test code = 60721-3) 46.9 fL 38.5-51.6 RDW-CV (test code = 788-0) 15.2 % 12.1-15.4 PLT (test code = 777-3) See_Comment [Au tomated message] The system which ge nerated this result transmit arnoldo reference range: 150 - 32 8 10*3/?L. The reference range was not used to interpret th is result as normal/abnormal . MPV (test code = 71105-2) 9.9 fL 9.8-13 NRBC/100 WBC (test code = See_Comment [ Automated message] The [id number]) system which ge nerated this result transmit arnoldo reference range: 0.0 - 10 .0 /100 WBCs. The reference r alanna was not used to interpr et this result as normal/abnor mal. NRBC x10^3 (test code = <0.01 See_Comment [Au tomated message] The [id number]) system which [employer] nerated this result transmit arnoldo reference range: 10*3/?L. The reference range was not u sed to interpret this result as normal/abnormal . GRAN MAT (NEUT) % (test code 61.2 % = 770-8) IMM GRAN % (test code = 0.30 % 4435116865) LYMPH % (test code = 736-9) 21.4 % MONO % (test code = 5905-5) 12.2 % EOS % (test code = 713-8) 4.3 % BASO % (test code = 706-2) 0.6 % GRAN MAT x10^3(ANC) (test 3.79 10*3/uL 1.99-6.95 code = 0546969039) IMM GRAN x10^3 (test code = <0.03 0-0.06 1091540707) LYMPH x10^3 (test code = 1.33 10*3/uL 1.09-3.23 731-0) MONO x10^3 (test code = 0.76 10*3/uL 0.36-1.02 742-7) EOS x10^3 (test code = 0.27 10*3/uL 0.06-0.53 711-2) BASO x10^3 (test code = 0.04 10*3/uL 0.01-0.09 704-7) Lab Interpretation (test Abnormal code = 58414-5) [facility] (NA, K, CL, CO2, GLUCOSE, BUN, CREATININE, CA)2020-11-19 11:37:00 Test Item Value Reference Range Interpretation Comments NA (test code = 140 mmol/L 135-145 2340730048) K (test code = 4.0 mmol/L 3.5-5 0105598160) CL (test code = 103 mmol/L 98-108 8578513522) CO2 TOTAL (test code = 27 mmol/L 23-31 4679190091) AGAP (test code = 2-16 3987442805) BUN (test code = 32 mg/dL 7-23 H 4400956880) GLUCOSE (test code = 88 mg/dL 70-110 0791822886) CREATININE (test code = 0.95 mg/dL 0.6-1.25 6529472467) CALCIUM (test code = 8.5 mg/dL 8.6-10.6 L 4457639404) eGFR Calculation mL/min/1.73m2 (Non-) (test code = 6982324939) eGFR Calculation mL/min/1.73m2 () (test code = 3721423904) CHANDRIKA (test code = CHANDRIKA) Association of Glomerular Filtration Rate (GFR) and Staging of Kidney Disease* + --+ --+ ------+| GFR (mL/min/1.73 m2) ?| With Kidney Damage ?| ?Without Kidney Damage+ --------+ --------+ +| ?>90 ?| ?Stage one ?| ? Normal ?+ ---+ ---+ -------+| ?60-89 ?| ?Stage two ?| ? Decreased GFR ? + --+ --+ ------+| ?30-59 ?| ?Stage three ?| ? Stage three ? + --+ --+ ------+| ?15-29 ?| ?Stage four ? | ? Stage four ?+ ---+ ---+ -------+| ?<15 (or dialysis) ? ?| ?Stage five ? | ? Stage five ?+ ---+ ---+ -------+ *Each stage assumes the associated GFR level has been in effect for at least three months. ?Stages 1 to 5, with or without kidney disease, indicate chronic kidney disease. Notes: Determination of stages one and two (with eGFR >59mL/min/1.73 m2) requires estimation of kidney damage for at least three months as defined by structural or functional abnormalities of the kidney, manifested by either:Pathological abnormalities or Markers of kidney damage (including abnormalities in the composition of the blood or urine or abnormalities in imaging tests). Lab Interpretation Abnormal (test code = 61266-9) [facility] [id number] 02:39:00COVID DMT InterpretationInterpretation/Recommendations: Molecular NAAT Tests for Active Infection with the SARS-CoV-2 Virus: This result indicates that the patient has tested negative on one occasion for the SARS-CoV-2 virus that causes COVID-19 illness. This most likely indicates that the patient does not have an active infection with the SARS-CoV-2 virus. However, infection is not completely ruled out as the false negative rate for molecular NAAT testing using a nasopharyngeal sample can be up to 30%, mostly dependent on the timing of sample collection in relation to illness onset and any deficiencies in sampling techniques. If the patient has symptoms concerning for COVID-19 illness, a repeat NAAT test (PCR, Rapid ID Now, etc.) should be performed, at which time the SARS-CoV-2 virus - if present - may have reached a detectable viral load (usually peaking by the end of the first week of symptoms). Tests for IgM and/or IgG Antibodies to SARS-CoV-2 Virus: Testing for IgM and IgG antibodies 1-3weeks after illness onset will indicate whether the patient has produced antibodies to the virus. Atthis time, it is not known if the production of antibodies - specifically IgG antibodies - indicateswhether the patient is immune to future infections with the SARS-CoV-2 virus. Interpretation Result Comments:These interpretation comments are based upon all COVID-19 testing the patient has had at [facility], including molecular NAATtesting (more commonly known as PCR testing and Rapid ID Now testing) and antibody testing. It does not take into account any testing that a patient has had outside of the [facility] medical record. [facility] LABORATORY SERVICESCOVID HvukyqwDNNG-KaM-[id number] Rapid ID NOW (no units) ? ? Date ? Value ? 11/15/2020 ? Not Detected ? [facility] (NA, K, CL, CO2, GLUCOSE, BUN, CREATININE, CA) 2020-11-18 12:03:00 Test Item Value Reference Range Interpretation Comments NA (test code = 138 mmol/L 135-145 9833540063) K (test code = 3.6 mmol/L 3.5-5 4855059838) CL (test code = 104 mmol/L 98-108 3863863880) CO2 TOTAL (test code = 26 mmol/L 23-31 9236680926) AGAP (test code = 2-16 3278114602) BUN (test code = 27 mg/dL 7-23 H 4452594963) GLUCOSE (test code = 80 mg/dL 70-110 6778377930) CREATININE (test code = 1.07 mg/dL 0.6-1.25 7258442769) CALCIUM (test code = 8.5 mg/dL 8.6-10.6 L 5486583445) eGFR Calculation mL/min/1.73m2 (Non-) (test code = 0009608773) eGFR Calculation mL/min/1.73m2 () (test code = 2784314493) CAHNDRIKA (test code = CHANDRIKA) Association of Glomerular Filtration Rate (GFR) and Staging of Kidney Disease* + --+ --+ ------+| GFR (mL/min/1.73 m2) ?| With Kidney Damage ?| ?Without Kidney Damage+ --------+ --------+ +| ?>90 ?| ?Stage one ?| ? Normal ?+ ---+ ---+ -------+| ?60-89 ?| ?Stage two ?| ? Decreased GFR ? + --+ --+ ------+| ?30-59 ?| ?Stage three ?| ? Stage three ? + --+ --+ ------+| ?15-29 ?| ?Stage four ? | ? Stage four ?+ ---+ ---+ -------+| ?<15 (or dialysis) ? ?| ?Stage five ? | ? Stage five ?+ ---+ ---+ -------+ *Each stage assumes the associated GFR level has been in effect for at least three months. ?Stages 1 to 5, with or without kidney disease, indicate chronic kidney disease. Notes: Determination of stages one and two (with eGFR >59mL/min/1.73 m2) requires estimation of kidney damage for at least three months as defined by structural or functional abnormalities of the kidney, manifested by either:Pathological abnormalities or Markers of kidney damage (including abnormalities in the composition of the blood or urine or abnormalities in imaging tests). Lab Interpretation Abnormal (test code = 15973-7) [facility] with [id number] 10:58:00 Test Item Value Reference Range Interpretation Comments WBC (test code = See_Comment [Automated 6690-2) message] The sy stem which generated this result transmitted reference range : 4.20 - 10.70 10*3/?L. The reference range was not used to interpret this result as normal/abnormal . RBC (test code = See_Comment L [Automated 789-8) message] The sy stem which generated this result transmitted reference range : 4.26 - 5.52 10*6/?L. The reference range was not used to interpret this result as normal/abnormal . HGB (test code = 9.6 g/dL 12.2-16.4 L 718-7) HCT (test code = 28.2 % 38.4-49.3 L 4544-3) MCV (test code = 84.7 fL 81.7-95.6 787-2) MCH (test code = 28.8 pg 26.1-32.7 785-6) MCHC (test code = 34.0 g/dL 31.2-35 786-4) RDW-SD (test code = 47.4 fL 38.5-51.6 36934-0) RDW-CV (test code = 15.3 % 12.1-15.4 788-0) PLT (test code = See_Comment [Automated 777-3) message] The sy stem which generated this result transmitted reference range : 150 - 328 10*3/ ?L. The reference r alanna was not used to interpret this result as normal/abnormal . MPV (test code = 11.5 fL 9.8-13 74573-0) NRBC/100 WBC (test See_Comment [Automat ed code = 7288762235) message] The system which generated this result transmitted reference range : 0.0 - 10.0 /100 WBCs. The refer ence range was not u sed to interpret th is result as normal/abnormal . NRBC x10^3 (test code <0.01 See_Comment [Auto mated = 2181169608) message] The s ystem which generated this result transmitted reference range : 10*3/?L. The reference range was not used to interpret this result as normal/abnormal . GRAN MAT (NEUT) % 58.5 % (test code = 770-8) IMM GRAN % (test code 0.30 % = 1222538617) LYMPH % (test code = 23.6 % 736-9) MONO % (test code = 13.2 % 5905-5) EOS % (test code = 3.8 % 713-8) BASO % (test code = 0.6 % 706-2) GRAN MAT x10^3(ANC) 4.00 10*3/uL 1.99-6.95 (test code = 7340125669) IMM GRAN x10^3 (test <0.03 0-0.06 code = 3452374429) LYMPH x10^3 (test code 1.61 10*3/uL 1.09-3.23 = 731-0) MONO x10^3 (test code 0.90 10*3/uL 0.36-1.02 = 742-7) EOS x10^3 (test code = 0.26 10*3/uL 0.06-0.53 711-2) BASO x10^3 (test code 0.04 10*3/uL 0.01-0.09 = 704-7) Lab Interpretation Abnormal (test code = 61611-6) [facility] Mxpvx8755-08-83 09:41:00 Test Item Value Reference Range Interpretation Comments LACTIC ACID (test code = 1.17 mmol/L 2962441015) [facility] (NA, K, CL, CO2, GLUCOSE, BUN, CREATININE, CA)2020-11-17 12:28:00 Test Item Value Reference Range Interpretation Comments NA (test code = 139 mmol/L 135-145 3486166838) K (test code = 3.6 mmol/L 3.5-5 0031187423) CL (test code = 103 mmol/L 98-108 4639241540) CO2 TOTAL (test code = 28 mmol/L 23-31 0910053666) AGAP (test code = 2-16 2448318125) BUN (test code = 21 mg/dL 7-23 1041067965) GLUCOSE (test code = 88 mg/dL 70-110 5316324559) CREATININE (test code = 1.14 mg/dL 0.6-1.25 4605352222) CALCIUM (test code = 8.2 mg/dL 8.6-10.6 L 7606340815) eGFR Calculation mL/min/1.73m2 (Non-) (test code = 0129602172) eGFR Calculation mL/min/1.73m2 () (test code = 9228883487) CHANDRIKA (test code = CHANDRIKA) Association of Glomerular Filtration Rate (GFR) and Staging of Kidney Disease* + --+ --+ ------+| GFR (mL/min/1.73 m2) ?| With Kidney Damage ?| ?Without Kidney Damage+ --------+ --------+ +| ?>90 ?| ?Stage one ?| ? Normal ?+ ---+ ---+ -------+| ?60-89 ?| ?Stage two ?| ? Decreased GFR ? + --+ --+ ------+| ?30-59 ?| ?Stage three ?| ? Stage three ? + --+ --+ ------+| ?15-29 ?| ?Stage four ? | ? Stage four ?+ ---+ ---+ -------+| ?<15 (or dialysis) ? ?| ?Stage five ? | ? Stage five ?+ ---+ ---+ -------+ *Each stage assumes the associated GFR level has been in effect for at least three months. ?Stages 1 to 5, with or without kidney disease, indicate chronic kidney disease. Notes: Determination of stages one and two (with eGFR >59mL/min/1.73 m2) requires estimation of kidney damage for at least three months as defined by structural or functional abnormalities of the kidney, manifested by either:Pathological abnormalities or Markers of kidney damage (including abnormalities in the composition of the blood or urine or abnormalities in imaging tests). Lab Interpretation Abnormal (test code = 85525-5) [facility] with Rtaujstchjuc6360-01-49 12:10:00 Test Item Value Reference Range Interpretation Comments WBC (test code = See_Comment [Automated 6690-2) message] The sy stem which generated this result transmitted reference range : 4.20 - 10.70 10*3/?L. The reference range was not used to interpret this result as normal/abnormal . RBC (test code = See_Comment L [Automated 789-8) message] The sy stem which generated this result transmitted reference range : 4.26 - 5.52 10*6/?L. The reference range was not used to interpret this result as normal/abnormal . HGB (test code = 9.2 g/dL 12.2-16.4 L 718-7) HCT (test code = 27.8 % 38.4-49.3 L 4544-3) MCV (test code = 85.8 fL 81.7-95.6 787-2) MCH (test code = 28.4 pg 26.1-32.7 785-6) MCHC (test code = 33.1 g/dL 31.2-35 786-4) RDW-SD (test code = 47.8 fL 38.5-51.6 36048-7) RDW-CV (test code = 15.3 % 12.1-15.4 788-0) PLT (test code = See_Comment [Automated 777-3) message] The sy stem which generated this result transmitted reference range : 150 - 328 10*3/ ?L. The reference r alanna was not used to interpret this result as normal/abnormal . MPV (test code = 10.2 fL 9.8-13 56910-7) NRBC/100 WBC (test See_Comment [Automat ed code = 3746189301) message] The system which generated this result transmitted reference range : 0.0 - 10.0 /100 WBCs. The refer ence range was not u sed to interpret th is result as normal/abnormal . NRBC x10^3 (test code <0.01 See_Comment [Auto mated = 5783329093) message] The s ystem which generated this result transmitted reference range : 10*3/?L. The reference range was not used to interpret this result as normal/abnormal . GRAN MAT (NEUT) % 55.3 % (test code = 770-8) IMM GRAN % (test code 0.30 % = 0182623001) LYMPH % (test code = 25.7 % 736-9) MONO % (test code = 15.0 % 5905-5) EOS % (test code = 3.1 % 713-8) BASO % (test code = 0.6 % 706-2) GRAN MAT x10^3(ANC) 3.56 10*3/uL 1.99-6.95 (test code = 7251472147) IMM GRAN x10^3 (test <0.03 0-0.06 code = 1926322782) LYMPH x10^3 (test code 1.66 10*3/uL 1.09-3.23 = 731-0) MONO x10^3 (test code 0.97 10*3/uL 0.36-1.02 = 742-7) EOS x10^3 (test code = 0.20 10*3/uL 0.06-0.53 711-2) BASO x10^3 (test code 0.04 10*3/uL 0.01-0.09 = 704-7) Lab Interpretation Abnormal (test code = 20619-4) [facility] GLUCOSE (AUTOMATED)2020-11-16 22:48:00 Test Item Value Reference Range Interpretation Comments POCT GLU (test code = 4966593930) 127 mg/dL 70-110 H Lab Interpretation (test code = Abnormal 78780-8) [facility] (A1C)2020-11-16 19:30:00 Test Item Value Reference Range Interpretation Comments HGB A1C (test code = 5.2 % 4-6 4548-4) CHANDRIKA (test code = CHANDRIKA) %A1C (NGSP) Interpretation (ADA)4.8-5.6 ? ? Normal or (Non-Diabetic Range)5.7-6.4 ? ? Increased Risk (Pre-Diabetic)>6.5 ?Diabetes Indicated Lab Interpretation Normal (test code = 83963-7) [facility] GLUCOSE (AUTOMATED)2020-11-16 17:42:00 Test Item Value Reference Range Interpretation Comments POCT GLU (test code = 5103483419) 115 mg/dL 70-110 H Lab Interpretation (test code = Abnormal 67042-4) [facility] RETROPERITONEAL [id number] 15:42:20 Essentially unremarkable renal ultrasound. No hydronephrosis ornephrolithiasis.ULTRASOUND RENAL INDICATION: Obstructive uropathy? UTI. COMPARISON: 11/15/2019. TECHNIQUE: Grayscale, color Doppler and spectral Doppler evaluation of therenal transplant was performed. FINDINGS: Right kidney measures 11.5 x 6.0 x 5.2 cm. There is normal renal corticalechogenicity and corticomedullary differentiation. No hydronephrosis orrenal calculi. Right lower renal pole 1.4 cm cyst is better visualized onrecent CT. There is qualitatively normal perfusion on color dopplerinterrogation. Left kidney measures 10.1 x 6.3x 6.0 cm. There is normal renal corticalechogenicity and corticomedullary differentiation. No hydronephrosis orrenal calculi. There is qualitatively normal perfusion on color dopplerinterrogation. Bladder was not imaged. [facility], Radiant Results Inft User - 11/16/2020 9:43 AM CSTULTRASOUND RENALINDICATION: Obstructive uropathy? UTI.COMPARISON: 11/15/2019.TECHNIQUE: Grayscale, color Doppler and spectral Doppler evaluation of therenal transplant was performed. FINDINGS:Right kidney measures 11.5 x 6.0 x 5.2 cm. There is normal renal corticalechogenicity and corticomedullary differentiation. No hydronephrosis orrenal calculi. Right lower renal pole 1.4 cm cyst is better visualized onrecent CT. There is qualitatively normal perfusion on color dopplerinterrogation.Left kidney measures 10.1 x 6.3 x 6.0 cm. There is normal renal corticalechogenicity and corticomedullary differentiation. No hydronephrosis orrenal calculi. There is qualitatively normal perfusion on color dopplerinterrogation.Bladder was not imaged.IMPRESSIONEssentially unremarkable renal ultrasound. No hydronephrosis ornephrolithiasis.[facility]PO[facility] GLU[facility]SE (AUT[facility]ATED)2020-11-16 13:54:00 Test Item Value Reference Range Interpretation Comments POCT GLU (test code = 2409291462) 99 mg/dL 70-110 Lab Interpretation (test code = Normal 38403-9) [facility] Metabolic Panel (NA, K, CL, CO2, GLUCOSE, BUN, CREATININE, CA)2020-11-16 10:47:00 Test Item Value Reference Range Interpretation Comments NA (test code = 139 mmol/L 135-145 5508005993) K (test code = 3.8 mmol/L 3.5-5 1145258401) CL (test code = 104 mmol/L 98-108 0269574690) CO2 TOTAL (test code = 27 mmol/L 23-31 5965270362) AGAP (test code = 2-16 4662053852) BUN (test code = 20 mg/dL 7-23 5218006125) GLUCOSE (test code = 95 mg/dL 70-110 9167105722) CREATININE (test code = 1.20 mg/dL 0.6-1.25 7801683688) CALCIUM (test code = 8.2 mg/dL 8.6-10.6 L 7471388849) eGFR Calculation mL/min/1.73m2 (Non-) (test code = 0958269189) eGFR Calculation mL/min/1.73m2 () (test code = 6277951648) CHANDRIKA (test code = CHANDRIKA) Association of Glomerular Filtration Rate (GFR) and Staging of Kidney Disease* + --+ --+ ------+| GFR (mL/min/1.73 m2) ?| With Kidney Damage ?| ?Without Kidney Damage+ --------+ --------+ +| ?>90 ?| ?Stage one ?| ? Normal ?+ ---+ ---+ -------+| ?60-89 ?| ?Stage two ?| ? Decreased GFR ? + --+ --+ ------+| ?30-59 ?| ?Stage three ?| ? Stage three ? + --+ --+ ------+| ?15-29 ?| ?Stage four ? | ? Stage four ?+ ---+ ---+ -------+| ?<15 (or dialysis) ? ?| ?Stage five ? | ? Stage five ?+ ---+ ---+ -------+ *Each stage assumes the associated GFR level has been in effect for at least three months. ?Stages 1 to 5, with or without kidney disease, indicate chronic kidney disease. Notes: Determination of stages one and two (with eGFR >59mL/min/1.73 m2) requires estimation of kidney damage for at least three months as defined by structural or functional abnormalities of the kidney, manifested by either:Pathological abnormalities or Markers of kidney damage (including abnormalities in the composition of the blood or urine or abnormalities in imaging tests). Lab Interpretation Abnormal (test code = 93202-3) [facility] with Qoypqxaqiesa7998-59-00 10:15:00 Test Item Value Reference Range Interpretation Comments WBC (test code = See_Comment [Automated 6690-2) message] The sy stem which generated this result transmitted reference range : 4.20 - 10.70 10*3/?L. The reference range was not used to interpret this result as normal/abnormal . RBC (test code = See_Comment L [Automated 789-8) message] The sy stem which generated this result transmitted reference range : 4.26 - 5.52 10*6/?L. The reference range was not used to interpret this result as normal/abnormal . HGB (test code = 9.7 g/dL 12.2-16.4 L 718-7) HCT (test code = 28.8 % 38.4-49.3 L 4544-3) MCV (test code = 86.0 fL 81.7-95.6 787-2) MCH (test code = 29.0 pg 26.1-32.7 785-6) MCHC (test code = 33.7 g/dL 31.2-35 786-4) RDW-SD (test code = 47.2 fL 38.5-51.6 30526-6) RDW-CV (test code = 15.3 % 12.1-15.4 788-0) PLT (test code = See_Comment [Automated 777-3) message] The sy stem which generated this result transmitted reference range : 150 - 328 10*3/ ?L. The reference r alanna was not used to interpret this result as normal/abnormal . MPV (test code = 9.8 fL 9.8-13 40956-3) NRBC/100 WBC (test See_Comment [Automat ed code = 8976983803) message] The system which generated this result transmitted reference range : 0.0 - 10.0 /100 WBCs. The refer ence range was not u sed to interpret th is result as normal/abnormal . NRBC x10^3 (test code <0.01 See_Comment [Auto mated = 3867482466) message] The s iGuiderstem which generated this result transmitted reference range : 10*3/?L. The reference range was not used to interpret this result as normal/abnormal . GRAN MAT (NEUT) % 68.2 % (test code = 770-8) IMM GRAN % (test code 0.30 % = 5715399172) LYMPH % (test code = 17.6 % 736-9) MONO % (test code = 10.7 % 5905-5) EOS % (test code = 2.8 % 713-8) BASO % (test code = 0.4 % 706-2) GRAN MAT x10^3(ANC) 5.04 10*3/uL 1.99-6.95 (test code = 8403392558) IMM GRAN x10^3 (test <0.03 0-0.06 code = 2973995841) LYMPH x10^3 (test code 1.30 10*3/uL 1.09-3.23 = 731-0) MONO x10^3 (test code 0.79 10*3/uL 0.36-1.02 = 742-7) EOS x10^3 (test code = 0.21 10*3/uL 0.06-0.53 711-2) BASO x10^3 (test code 0.03 10*3/uL 0.01-0.09 = 704-7) Lab Interpretation Abnormal (test code = 22377-3) [facility] GLUCOSE (AUTOMATED)2020-11-15 23:02:00 Test Item Value Reference Range Interpretation Comments POCT GLU (test code = 7671033396) 141 mg/dL 70-110 H Lab Interpretation (test code = Abnormal 22178-7) [facility] GLUCOSE (AUTOMATED)2020-11-15 17:50:00 Test Item Value Reference Range Interpretation Comments POCT GLU (test code = 7855675599) 117 mg/dL 70-110 H Lab Interpretation (test code = Abnormal 34056-6) [facility] GLUCOSE (AUTOMATED)2020-11-15 14:06:00 Test Item Value Reference Range Interpretation Comments POCT GLU (test code = 8831031834) 154 mg/dL 70-110 H Lab Interpretation (test code = Abnormal 65480-9) [facility] ABDOMEN PELVIS WO [id number] 13:55:56 Moderate circumferential bladder wall thickening, out of proportion to thedegree of decompression, is demonstrated. This finding, along with moderateperivesical stranding, thickening of the distal ureters and bilateralperinephric stranding, is concerning for an ascending infectious process,and shouldbe correlated clinically. Follow-up imaging after appropriatetreatment can be considered to ensure resolution. Large rectal fecal burden. Mild gallbladder distention measuring up to 11 cm. A few very sm allgallstones noted in the dependent portion of the gallbladder lumen. Preliminary Report Dictated by Resident: Zacarias Mayo MD., have reviewed this study and agree withtheabove report. EXAM: CT ABDOMEN/PELVIS WITHOUT CONTRAST HISTORY: ?Abd pain, acute, generalized ? CO MPARISON: None. TECHNIQUE AND FINDINGS: Contiguous axial imaging from the level of the lungbases through the pubic symphysis was performed without the intravenousadministration of contrast. Coronal andsagittal reconstructions wereobtained. FINDINGS: LOWER THORAX: The lungs bases are clear. No cardiome jen. Pacemaker leadsterminate within the right atrium and ventricle. LIVER: No focal hepatic lesions. GALLBLADDER AND BILIARY TREE: The gallbladder appears distended measuringup to 11 cm. Focal hyperdensities along the gallbladder wall couldrepresent subcentimeter stones. Further evaluation of the wall is limitedwithout contrast. SPLEEN: No splenomegaly. PANCREAS: Diffuse atrophy of the pancreatic parenchyma without ductaldilation or masses. ADRENAL GLANDS: No adrenal nodules. KIDNEYS: No hydronephrosis, stones, or contour deforming masses. Mildbilateral perinephric stranding. A mildly thickened appearance of thebilateral ureters is seen distally, for example (2:109). 14 mm low-density lesion in the lower pole cortex of the right kidney couldbe an incidental small cyst. PERITONEUM AND RETROPERITONEUM: No free air or fluid. LYMPH NODES: No lymphadenopathy. GI TRACT: Linear hyperdensities along the gastric moe are nonspecific andcould be recently ingested medicine or less likely vascular in origin. Thestomach is distended with ingested contents. No bowel wall thickening. Alarge rectal fecal burden is present. PELVIS/BLADDER: The bladder is decompressed around a Wang catheter anddemonstratescircumferential wall thickening, out of proportion to thedegree of decompression. A single focus of g as within the bladder is likelyrelated to instrumentation. Moderate perivesicular stranding is alsopresent. VESSELS: Aortoiliac atherosclerosis. BONES AND SOFT TISSUES: No suspicious lytic or scleroticbony lesions. [facility], Radiant Results Inft User - 11/15/2020 7:57 AM CSTEXAM: CT ABDOMEN/PELVIS WITHOUT CONTRASTHISTORY: Abd pain, acute, generalized COMPARISON: None.TECHNIQUE AND FINDINGS: Contiguous axial imaging from the level of the lungbases through the pubic symphysis was performed without the intravenousadministration of contrast. Coronal and sagittal reconstructions wereobtained.FINDINGS:LOWER THORAX: The lungs bases are clear. No cardiomegaly. Pacemaker leadsterminate within the right atrium and ventricle.LIVER: No focal hepatic lesions.GALLBLADDER AND BILIARY TREE: The gallbladder appears distended measuringup to 11 cm. Focal hyperdensities along the gallbladder wall couldrepresent subcentimeter stones. Further evaluation of the wall is limitedwithout contrast.SPLEEN: No splenomegaly.PANCREAS: Diffuse atrophy of the pancreatic parenchyma without ductaldilation or masses.ADRENAL GLANDS: No adrenal nodules.KIDNEYS: No hydronephrosis, stones, or contour deforming masses. Mildbilateral perinephric stranding. A mildly thickened appearance of thebilateral ureters is seen distally, for example (2:109).14 mm low-density lesion in the lower pole cortex of the right kidney couldbe an incidental small cyst.PERITONEUM AND RETROPERITONEUM: No free air or fluid.LYMPH NODES: No lymphadenopathy.GI TRACT: Linear hyperdensities along the gastric moe are nonspecific andcould be recently ingestedmedicine or less likely vascular in origin. Thestomach is distended with ingested contents. No bowelwall thickening. Alarge rectal fecal burden is present.PELVIS/BLADDER: The bladder is decompressed around a Wang catheter anddemonstrates circumferential wall thickening, out of proportion to thedegree of decompression. A single focus of gas within the bladder is likelyrelated to instrumentation. Moderate perivesicular stranding is alsopresent.VESSELS: Aortoiliac atherosclerosis.BONES AND SOFT TISSUES: No suspicious lytic or sclerotic bony lesions.IMPRESSIONModerate circumferential bladder wall thickening, out of proportion to thedegree of decompression, is demonstrated. This finding, along with moderateperivesical stranding, thickening of the distal ureters and bilateralperinephric stranding, isconcerning for an ascending infectious process,and should be correlated clinically. Follow-up imaging after appropriatetreatment can be considered to ensure resolution.Large rectal fecal burden.Mild gallbladder distention measuring up to 11 cm. A few very smallgallstones noted in the dependent portionof the gallbladder lumen. Preliminary Report Dictated by Resident: Zacarias Meredith MD., have reviewed this study and agree with theabove report.[facility] HospitalLactic Acid Whole Gncei6509-69-60 11:17:00 Test Item Value Reference Range Interpretation Comments LACTIC ACID (test code = 2.02 mmol/L 0830544850) [facility] 07:24:00 Test Item Value Reference Range Interpretation Comments APPEARANCE (test code = Cloudy Clear A 3325357211) COLOR (test code = Nieves Yellow A 5701541163) PH (test code = 4.8-8.0 0803154420) SP GRAVITY (test code = 1.003-1.030 4256983433) GLU U QUAL (test code = Normal Normal 7125905941) BLOOD (test code = Negative Negative 8954707461) KETONES (test code = Negative Negative 0072016849) PROTEIN (test code = 500 mg/dL Negative A 2887-8) UROBILIN (test code = Normal Normal 6669591440) BILIRUBIN (test code = Negative Negative 9374434444) NITRITE (test code = Negative Negative 9377135247) LEUK BRAD (test code = 500/uL Negative A 8882385096) RBC/HPF (test code = See_Comment [Autom ated message] 0928419155) The system [employer] generated this result transmit arnoldo reference range : 0 - 3 HPF. The refe rence range was not u sed to interpret th is result as normal/abnormal . WBC/HPF (test code = >182 See_Comment H [Autom ated message] 8711260440) The system [employer] generated this result transmit arnoldo reference range : 0 - 5 HPF. The refe rence range was not u sed to interpret th is result as normal/abnormal . BACTERIA (test code = Many Negative A 6270994759) MUCOUS (test code = Slight Negative LPF A 4450507855) WBC CLUMPS (test code = See_Comment H [Au tomated message] 4179932456) The system [employer] generated this result transmit arnoldo reference range : <=1 HPF. The refere nce range was not u sed to interpret th is result as normal/abnormal . CA OXALATE (test code = See_Comment [Au tomated message] 4803791260) The system [employer] generated this result transmit arnoldo reference range : <=1 HPF. The refere nce range was not u sed to interpret th is result as normal/abnormal . Lab Interpretation (test Abnormal code = 85743-4) [facility] (ID NOW RAPID TESTING)2020-11-15 07:03:00 Test Item Value Reference Range Interpretation Comments SARS-CoV-2 Rapid ID NOW Not Detected Not Detected (test code = 34515-2) CHANDRIKA (test code = CHANDRIKA) ID NOW COVID-19 Assay is an isothermal nucleic acid amplification test intended for the qualitative detection of nucleic acid from SARS-CoV-2 viral RNA in nasopharyngeal (FURNITURE [employer]SEMBLER) specimens. It is used under Emergency Use Authorization (EUA) by FDA. The limit of detection (LOD) of the assay is 125 Genome Equivalents/mL. A positive result is indicative of the presence of SARS-CoV-2 RNA. ?Clinical correlation with patient history and other diagnostic information is necessary to determine patient infection status. A negative (Not Detected) result does not preclude SARS-CoV-2 infection. In patients with clinical symptoms and other tests that are consistent with SARS-CoV-2 infection, negative results should be treated as presumptive negative and a new specimen should be tested with alternative PCR molecular test. Invalid: Please collect a new specimen for repeat patient testing if clinically indicated. Lab Interpretation Normal (test code = 32404-5) [facility]. METABOLIC PANEL ([id number])2020-11-15 06:59:00 Test Item Value Reference Range Interpretation Comments NA (test code = 143 mmol/L 135-145 4480797779) K (test code = 4.1 mmol/L 3.5-5 4334810574) CL (test code = 104 mmol/L 98-108 1487559093) CO2 TOTAL (test code = 26 mmol/L 23-31 8872973787) AGAP (test code = 2-16 6832013776) BUN (test code = 25 mg/dL 7-23 H 0469448137) GLUCOSE (test code = 168 mg/dL 70-110 H 9997803049) CREATININE (test code = 1.24 mg/dL 0.6-1.25 3466972416) TOTAL BILI (test code = 1.2 mg/dL 0.1-1.1 H 5735548592) CALCIUM (test code = 9.2 mg/dL 8.6-10.6 1247373237) T PROTEIN (test code = 8.2 g/dL 6.3-8.2 4171210414) ALBUMIN (test code = 4.1 g/dL 3.5-5 8212659925) ALK PHOS (test code = 120 U/L 34-122 5146046303) ALTv (test code = 28 U/L 5-50 1742-6) AST(SGOT) (test code = 41 U/L 13-40 H 8648947625) eGFR Calculation mL/min/1.73m2 (Non-) (test code = 3264431560) eGFR Calculation mL/min/1.73m2 () (test code = 0304007588) CHANDRIKA (test code = CHANDRIKA) Association of Glomerular Filtration Rate (GFR) and Staging of Kidney Disease* + --+ --+ ------+| GFR (mL/min/1.73 m2) ?| With Kidney Damage ?| ?Without Kidney Damage+ --------+ --------+ +| ?>90 ?| ?Stage one ?| ? Normal ?+ ---+ ---+ -------+| ?60-89 ?| ?Stage two ?| ? Decreased GFR ? + --+ --+ ------+| ?30-59 ?| ?Stage three ?| ? Stage three ? + --+ --+ ------+| ?15-29 ?| ?Stage four ? | ? Stage four ?+ ---+ ---+ -------+| ?<15 (or dialysis) ? ?| ?Stage five ? | ? Stage five ?+ ---+ ---+ -------+ *Each stage assumes the associated GFR level has been in effect for at least three months. ?Stages 1 to 5, with or without kidney disease, indicate chronic kidney disease. Notes: Determination of stages one and two (with eGFR >59mL/min/1.73 m2) requires estimation of kidney damage for at least three months as defined by structural or functional abnormalities of the kidney, manifested by either:Pathological abnormalities or Markers of kidney damage (including abnormalities in the composition of the blood or urine or abnormalities in imaging tests). Lab Interpretation Abnormal (test code = 65303-2) [facility] WITH [id number] 06:45:00 Test Item Value Reference Range Interpretation Comments WBC (test code = See_Comment H [Automated 6690-2) message] The system which generated this result transmit arnoldo reference range : 4.20 - 10.70 10*3/?L. The reference range was not used to interpret this result as normal/abnormal . RBC (test code = See_Comment [Automated 789-8) message] The system which generated this result transmit arnoldo reference range : 4.26 - 5.52 10*6/?L. The reference range was not used to interpret this result as normal/abnormal . HGB (test code = 12.4 g/dL 12.2-16.4 718-7) HCT (test code = 37.8 % 38.4-49.3 L 4544-3) MCV (test code = 86.5 fL 81.7-95.6 787-2) MCH (test code = 28.4 pg 26.1-32.7 785-6) MCHC (test code = 32.8 g/dL 31.2-35 786-4) RDW-SD (test code = 48.8 fL 38.5-51.6 76635-4) RDW-CV (test code = 15.5 % 12.1-15.4 H 788-0) PLT (test code = See_Comment [Automated 777-3) message] The system which generated this result transmit arnoldo reference range : 150 - 328 10*3/ ?L. The reference range was not u sed to interpret th is result as normal/abnormal . MPV (test code = 9.5 fL 9.8-13 L 11030-3) NRBC/100 WBC (test See_Comment [Automat ed code = 4282431758) message] The system which generated this result transmit arnoldo reference range : 0.0 - 10.0 /100 WBCs. The reference range was not used to interpret this result as normal/abnormal . NRBC x10^3 (test code <0.01 See_Comment [Auto mated = 6286120207) message] The system which generated this result transmit arnoldo reference range : 10*3/?L. The reference range was not used to interpret this result as normal/abnormal . GRAN MAT (NEUT) % 79.9 % (test code = 770-8) IMM GRAN % (test code 0.70 % = 0999243415) LYMPH % (test code = 8.3 % 736-9) MONO % (test code = 9.5 % 5905-5) EOS % (test code = 1.1 % 713-8) BASO % (test code = 0.5 % 706-2) GRAN MAT x10^3(ANC) 12.19 10*3/uL 1.99-6.95 H (test code = 7678360484) IMM GRAN x10^3 (test 0.10 10*3/uL 0-0.06 H code = 9401058036) LYMPH x10^3 (test code 1.27 10*3/uL 1.09-3.23 = 731-0) MONO x10^3 (test code 1.45 10*3/uL 0.36-1.02 H = 742-7) EOS x10^3 (test code = 0.17 10*3/uL 0.06-0.53 711-2) BASO x10^3 (test code 0.08 10*3/uL 0.01-0.09 = 704-7) Lab Interpretation Abnormal (test code = 13265-0) [facility] [id number]:00 Test Item Value Reference Range Interpretation Comments LACTIC ACID (test code = 3.45 mmol/L 6803140746) [facility] Branch[facility]MO[facility] [id number] 09:54:00 Test Item Value Reference Range Interpretation Comments HEMOGLOBIN A1C (BEAKER) (test code = 6.2 % 4.3-6.1 H 368) [employer] ID - ADMINHEMOGLOBIN [id number] 09:45:00 Test Item Value Reference Range Interpretation Comments HEMOGLOBIN A1C (BEAKER) (test code = 6.1 % 4.3-6.1 368) [employer] ID - ADMINBASIC METABOLIC [id number] 04:58:00 Test Item Value Reference Range Interpretation Comments SODIUM (BEAKER) 142 meq/L 136-145 (test code = 381) POTASSIUM (BEAKER) 4.0 meq/L 3.5-5.1 (test code = 379) CHLORIDE (BEAKER) 107 meq/L 98-107 (test code = 382) CO2 (BEAKER) (test 27 meq/L 22-29 code = 355) BLOOD UREA NITROGEN 23 [...] S NOT APPLICABLE FOR DIALYSIS PATIEN TS. [employer] ID - [id number] 04:58:00 Test Item Value Reference Range Interpretation Comments MAGNESIUM (BEAKER) (test code = 1.7 mg/dL 1.6-2.6 627) [employer] ID - EDASICBC W/PLT COUNT & AUTO [id number] 04:36:00 Test Item Value Reference Range Interpretation [...] (BEAKER) (test code = 2801) BASIC METABOLIC [id number] 07:31:00 Test Item Value Reference Range Interpretation [...] S NOT APPLICABLE FOR DIALYSIS PATIEN TS. [employer] ID - DEMOND MCBC W/PLT COUNT & AUTO [id number] 07:21:00 Test Item Value Reference Range Interpretation [...] = 2801) RAD, CHEST, 1 VIEW, NON [id number] 08:26:00Reason for exam:->post-ppmShould this be performed at the bedside?->YesFINAL REPORT CLINICAL HISTORY: post-ppm TECHNIQUE: 1 view of the chest. COMPARISON: 08/07/2020 IMPRESSION: A left chest wall pacemaker is again seen without pneumothorax. There are no new infiltrates or significant effusions. Cardiomegaly is again noted. Signed: Michelle Tariq [facility] Verified Date/Time: 08/08/2020 08:26:51 Reading Location: [facility] Radiology Reading Room BASIC METABOLIC [id number] 06:17:00 Test Item Value Reference Range Interpretation [...] S NOT APPLICABLE FOR DIALYSIS PATIEN TS. [employer] ID - DEMOND MCBC W/PLT COUNT & AUTO [id number] 05:59:00 Test Item Value Reference Range Interpretation [...] = 2801) RAD, CHEST, 1 VIEW, NON [id number] 20:04:00Reason for exam:->post ppmShould this be performed at the bedside?->YesFINAL REPORT AP view of the chest dated 08/07/2020 CLINICAL INFORMATION: post ppm Comment: Heart is normal in size. Thoracic aorta is ectatic. AICD is present. Pulmonary vasculature is unremarkable. Lungs are clear. No pulmonary infiltrate or pleural effusion is present. Impression: Ectatic thoracic aorta. Signed: Jame Duckworth MDReport Verified Date/Time: 08/07/2020 20:04:22Reading Location: [address] Consult Reading Room POCT-GLUCOSE [id number] 16:15:00 Test Item Value Reference Range Interpretation Comments POC-GLUCOSE METER 132 mg/dL 70-110 H : TESTED A T [facility] 6720 (BEAKER) (test code = [facility], 1538) [address]: [employer] Retailer/Techni sara ID = [id number] for SALOMON KRUSE BASIC METABOLIC [id number] 06:15:00 Test Item Value Reference Range Interpretation [...] S NOT APPLICABLE FOR DIALYSIS PATIEN TS. [employer] ID - PIAYA LSpecimen slightly ictericCBC W/PLT COUNT & AUTO [id number] 04:26:00 Test Item Value Reference Range Interpretation [...] 0-1 PERCENT (BEAKER) (test code = 2801) PROTHROMBIN [id number] 04:18:00 Test Item Value Reference Range Interpretation [...] is2.5-3.5 for patients wiht mechanical heart valves.POCT-GLUCOSE [id number] 21:14:00 Test Item Value Reference Range Interpretation Comments POC-GLUCOSE METER 138 mg/dL 70-110 H : TESTED A T [facility] [address] (BEAKER) (test code = [place], 1538) [address]: [employer] Retailer/Techni sara ID = [id number] for [place] CT, BRAIN, WITHOUT [id number] 18:41:00Unlisted Reason for Exam - Click Yes [...] Zahida Dobbs MDR[facility]ort Verified Date/Time: 08/06/2020 18:41:07 [id number] 14:05:00 Test Item Value Reference Range Interpretation Comments MAGNESIUM (BEAKER) (test code = 1.8 mg/dL 1.6-2.6 627) [employer] ID - BOGUE CHITTO FSARS-COV2/RT-PCR ([facility])2020-08-06 13:22:00 Test Item Value Reference Range Interpretation Comments SARS-COV2/RT-PCR (test Negative Not Detected, Negative, code = 0319840) See external report for linked test SARS-COV-2 PERFORMING LAB [facility] NINA (test code = 6642449) Negative result for this test determines that [...] 564(g) of the Act.Fact Sheet for Healthcare Providers:https://www.Certain[employer]/sites/default/files/product/documents/Fact_Shee a_AC_Dpktjmvid_Ufeg_XBTI-VnD-0.pdfFact Sheet for Healthcare Patients:https://www.[employer]/sites/default/files/product/ documents/Egsf_Gctrl_Pxchhmxm_Bquf_MKMH-JuU-3.pdfPerforming Laboratory:[facility], [place] [address]SHKG-VXLWYAO METER 2020-08-06 12:21:00 Test Item Value Reference Range Interpretation Comments POC-GLUCOSE METER 180 mg/dL 70-110 H : TESTED A T [facility] [address] (BEAKER) (test code = ZARIA Franz [facility], 1538) [address]: [employer] Retailer/Techni sara ID = [id number] for [place] BASIC METABOLIC [id number] 05:00:00 Test Item Value Reference Range Interpretation [...] S NOT APPLICABLE FOR DIALYSIS PATIEN TS. [employer]er ID - DEMOND MCBC W/PLT COUNT & AUTO [id number] 04:43:00 Test Item Value Reference Range Interpretation [...] 0-1 PERCENT (BEAKER) (test code = 2801) TROPONIN [id number] 19:55:00 Test Item Value Reference Range Interpretation [...] failure, acidosis, acute neurological disease, and persistent tachyarrhythmia.[employer] ID - RMBASIC METABOLIC PANEL 2020-08-05 19:47:00 [...] S NOT APPLICABLE FOR DIALYSIS PATIEN TS. [employer]er ID - RMBLOOD GAS, [id number] 19:17:00 Test Item Value Reference Range Interpretation [...] FIO2 (BEAKER) (test code = 1819) 50.0 [id number] 19:11:00 Test Item Value Reference Range Interpretation Comments MAGNESIUM (BEAKER) 2.1 mg/dL 1.6-2.6 Specimen slightly (test code = 627) hemolyzed [employer] ID - RMPOCT-GLUCOSE [id number] 18:45:00 Test Item Value Reference Range Interpretation Comments POC-GLUCOSE METER 133 mg/dL 70-110 H : TESTED A T [facility] [address] (BEAKER) (test code = [place], 1538) [address]: [employer] Retailer/Techni sara ID = [id number] for [place] RAD, CHEST, 1 VIEW, NON [id number] 18:01:00Reason for exam:->post TVP placementShould this be [...] Signed: Zahida Dobbs Verified Date/Time: 08/05/2020 18:01:39 VALPROIC ACID LEVEL, TOTAL 2020-08-05 14:05:00 Test Item Value Reference Range Interpretation Comments VALPROIC ACID TOTAL (BEAKER) (test 30 ug/mL 50-100 L code = 924) Therapeutic range for some clinical conditions may be >100 ug/mLOperator ID - RMCOMPREHENSIVE METABOLIC [id number] 14:03:00 Test Item Value Reference Range Interpretation [...] S NOT APPLICABLE FOR DIALYSIS PATIEN TS. [employer] Retailer ID - KEVINBRIANROPONIN [id number] 13:59:00 Test Item Value Reference Range Interpretation [...] failure, acidosis, acute neurological disease, and persistent tachyarrhythmia.[employer] ID - KORIN-TYPE NATRIURETIC FACTOR (BNP)2020-08-05 13:59:00 Test Item Value Reference Range Interpretation Comments B-TYPE NATRIURETIC PEPTIDE (BEAKER) 29 pg/mL 0-100 (test code = 700) [employer] ID - KORINLOOD GAS, [id number] 13:29:00 Test Item Value Reference Range Interpretation [...] 1819) 100.0 CBC W/PLT COUNT & AUTO [id number] 13:29:00 Test Item Value Reference Range Interpretation [...] = 2801) RAD, CHEST, 1 VIEW, NON [id number] 13:12:00Reason for exam:- >intubationShould this be performed [...] MDReport Verified Date/Time: 08/05/2020 13:12:04 Reading Location: [address] Transitional Reading Room 01:12 PM"
== END 2021-09-05 20:30 | disposition home or self-care (01) ==
LOC: ER 14:54
DX: N30.01 Acute cystitis with hematuria (principal)
CPT/HCPCS: 96365; 87088; 85025; 87086; 80048; 36415; 80076; 87077 ×2; 87186 ×2; 84484; 83690; 74177; 96375; 99284; 96366; Q9967; J7030; J2405

== ENCOUNTER 2021-09-28 16:32 | Inpatient (IN) | payer OTHER ==
--- OUTSIDE RECORDS SUMMARY | 2021-09-28 16:36 | XMS REPORT | Continuity of Care Document ---
:1955 Author Organization [facility] t Address [address] [place] [address] [address]. [address] [place] [address] Care Team Providers Name Role Phone JESSE MERAZ Attending Clinician Unavailable Osei Cuevas Attending Clinician Bryant ZAZUETA Attending Clinician Giselle ZAZUETA Attending Clinician Osei CLAROS Attending Clinician Unavailable JESSE MERAZ Admitting Clinician Unavailable Bryant ZAZUETA Admitting Clinician Payers Payer Name Policy Type Policy Number Effective Date Expiration Date S [facility] COMM STAR PLAN [id number] Problems Condition Condition Condition Status Onset Resolution Last Treating Co mments Source Name Details Category Date Date Treatment Clinician Date Complicate Complicate Disease Active U nivers d UTI d UTI 1-21 ity of (urinary (urinary 00:00: [place] tract tract 00 Medical infection) infection) Br anch Obesity Obesity Disease Active 2015-10 Univers (BMI (BMI 2-20 ity of 30-39.9) 30-39.9) 00:00: [address] Stroke Stroke Disease Active 2015-10 Univers 2-20 ity of 00:00: [address] Left arm Left arm Disease Active 2015-10 Unive rs weakness weakness 2-19 ity of 00:00: [address] Allergies, Adverse Reactions, Alerts Allergy Allergy Status Severity Reaction(s) Onset Inactive Treating Comm ents Source Name Type Date Date Clinician NO KNOWN Allergy Active NO KNOWN Drug Active [facility] ALLERGIE Class ity of S [facility] Social History Social Habit Start Date Stop Date Quantity Comments Source Sex Assigned At Universit y of [facility] Exposure to Not sure [place] of SARS-CoV-2 (event) [facility] History of tobacco Cigarette Smoker University of use [facility] Branch History SDOH 2020-11-15 2020-11-15 4 University o f Financial 00:00:00 00:00:00 [facility] Branch History SDOH Food 2020-11-15 2020-11-15 1 Univers ity of Worry 00:00:00 00:00:00 [place] [facility] History SDOH Food 2020-11-15 2020-11-15 1 Univers ity of Scarcity 00:00:00 00:00:00 [place] [facility] History SDOH 2020-11-15 2020-11-15 2 University o f Transport Med 00:00:00 00:00:00 [place] [facility] History SDOH 2020-11-15 2020-11-15 2 University o f Transport Non-Med 00:00:00 00:00:00 [facility] Cigarettes smoked 2020-11-15 2020-11-15 Univers ity of current (pack per 00:00:00 00:00:00 [facility] ) - Reported Branch Cigarette 2020-11-15 2020-11-15 University of pack-years 00:00:00 00:00:00 [facility] Tobacco use and 2020-11-15 2020-11-15 Never used Universit y of exposure 00:00:00 00:00:00 [facility] Alcohol intake 2020-11-15 2020-11-15 Current drinker Unive rsity of 00:00:00 00:00:00 of alcohol [facility] ([facility] [place] Smoking Status Start Date Stop Date Source Former smoker 2020-11-15 00:00:00 2020-11-15 00:00:00 Universi ty of [facility] Medications Ordered Filled Start Stop Current [...] mouth [place] tablet 51 every 24 Medical (twenty- Branch ur) hours. divalproex Yes 500mg Take 500 Un osmar 500 mg EC 1-25 mg by ity of tablet 21:24: mouth at [place] [address] bedtime. Medical Branch hydrALAZINE 0 Yes 25mg Take 25 mg Univers 25 mg 1-25 by mouth 2 ity of tablet 21:24: (two) [place] [address] times Medical daily as Branch needed (SBP >170 and/or DBP >100). lisinopriL 0 Yes 20mg Take 20 mg U nivers 20 mg 1-25 by mouth ity of tablet 21:24: daily. [place] [address] Medical Branch Melatonin 5 2020-0 Yes 5mg Take 5 mg U nivers mg Cap 1-25 by mouth ity of 21:24: at [place] [address] bedtime. Medical Branch metoprolol Yes 50mg Take 50 mg U nivers tartrate 1-25 by mouth 2 ity o f (LOPRESSOR) 21:24: (two) [place] 50 mg 51 times Medical tablet daily. Branch NIFEdipine Yes 60mg Take 60 mg U nivers ER 60 mg 1-25 by mouth 2 ity o f tablet 21:24: (two) [place] [address] times Medical daily. Branch omeprazole 0 Yes 20mg Take 20 mg U nivers 20 mg 1-25 by mouth ity of capsule 21:24: daily. [place] [address] Medical Branch oxybutynin 0 Yes 5mg Take 5 mg Un osmar chloride 5 1-25 by mouth 3 ity of mg tablet 21:24: (three) [place] [address] times Medical daily. Branch linaGLIPtin 0 Yes 5mg Take 5 mg U nivers (TRADJENTA) 1-25 by mouth ity of 5 mg tablet 21:24: [place]. [place] Branch traMADoL 50 2020-0 Yes 50mg Take 50 mg Univers mg tablet 1-25 by mouth 2 ity of 21:24: (two) [place] [address] times Medical daily. Branch ascorbic 0 Yes 500mg Take 500 Univ ers acid, 1-25 mg by ity of vitamin C, 21:24: mouth [place] (VITAMIN C) 51 daily. Medica l 500 mg Branch tablet Zinc 0 Yes 220mg Take 220 Univers Sulfate 220 1-25 mg by ity of mg Tab 21:24: mouth [place] [address] daily. Medical Branch traMADoL 2020-0 2020- No 50mg 50 mg, Univer s (ULTRAM) 11-17 Oral, ity of tablet 50 15:32: 15:31 Q8HPRN, [place] mg 42 :42 Starting Medical [facility] 11/17/20 at 0932, Until [facility] 11/19/20 at 0931, Routine, Pain (scale 4-6) cefTRIAXone 2020-0 Yes 1000mg 1,000 mg, Univers (ROCEPHIN) 11-17 IV ity of 1,000 mg in 15:30: Piggyback, [place] NaCl 0.9% 00 Q24H ABX, Medic al (NS) 50 mL First dose Bra [facility] MINI-BAG on [facility] 11/17/20 at 0930, Until Discontinu ed, 50 mL
R willa for Anti-Infec tive: Empiric Therapy for Suspected Infection< br>Empiric Therapy Site: Urine
D uration of therapy: 72 hours zinc 2020-0 Yes 220mg 220 mg, Univers sulfate 11-17 Oral, ity of (ORAZINC) 15:00: DAILY, [place] capsule 220 00 First dose Me dical mg on [facility] 11/17/20 at 0900, Until Discontinu ed omeprazole 2020-0 Yes 20mg 20 mg, Unive rs (PRILOSEC) 11-17 Oral, ity of capsule 20 15:00: DAILY, [place] mg 00 First dose Medical on [facility] 11/17/20 at 0900, Until Discontinu ed, Routine docusate 2020-0 Yes 100mg 100 mg, Unive rs (COLACE) 11-17 Oral, ity of capsule 100 15:00: DAILY, [place] mg 00 First dose Medical on [facility] 11/17/20 at 0900, Until Discontinu ed, Routine aspirin 2020-0 Yes 81mg 81 mg, Univers chewable 11-17 Oral, ity of tablet 81 15:00: DAILY, [place] mg 00 First dose Medical on [facility] 11/17/20 at 0900, Until Discontinu ed, Routine ascorbic 2020-0 Yes 500mg 500 mg, Unive rs acid 11-17 Oral, ity of (vitamin C) 15:00: DAILY, [place] (VITAMIN C) 00 First dose Me dical tablet 500 on [facility] 11/17/20 at 0900, Until Discontinu ed, Routine melatonin 2021-0 Yes 6mg 6 mg, Univers (MELATIN) 1-23 Oral, QHS, ity of tablet 6 mg 03:00: First dose [place] 00 on Thu [facility] 11/16/20 at Branch 2100, Until Discontinu ed divalproex 2020-0 Yes 500mg 500 mg, Uni vers (DEPAKOTE) 1-23 Oral, QHS, ity of [place] tablet 03:00: First [place] 500 mg 00 on Thu [facility] 11/16/20 at Branch 2100, Until Discontinu ed, Routine NIFEdipine 2020-0 Yes 60mg 60 mg, Unive rs ER tablet 11-17 Oral, BID, ity of 60 mg 02:00: First dose 00 on Thu [facility] 11/16/20 at Branch 2000, Until Discontinu ed, Routine atorvastati 2020-0 Yes 20mg 20 mg, Univ ers n (LIPITOR) - Oral, QPM, it y of tablet 20 23:00: [place] mg 00 on Thu [facility] 11/16/20 at Branch 1700, Until Discontinu ed, Routine oxybutynin 2020-0 Yes 5mg 5 mg, Univer s chloride 11-16 Oral, TID, ity o f (DITROPAN) 20:00: First dose [place] tablet [facility] mg [address] [facility] at Branch 1400, Until Discontinu ed, Routine divalproex 2020-0 Yes 250mg 250 mg, Uni vers ER - Oral, ity of (DEPAKOTE 18:30: Q24H, [place] ER) 24 hr 00 First dose Medi jadiel tablet 250 on Fri [facility] 11/16/20 at 1230, Until Discontinu ed, Routine metoprolol 2020-0 Yes 50mg 50 mg, Unive rs tartrate -22 Oral, BID, ity o f (LOPRESSOR) 17:30: First dose [place] tablet 50 00 (after Medical mg last Branch modificati on) on Thu11/16/20 at 1130, Until Discontinu ed, Routine lisinopriL 2020-0 Yes 20mg 20 mg, Unive rs (PRINIVIL,Z -22 Oral, ity of ESTRIL) 17:30: DAILY, [place] tablet 20 00 First dose Medi jadiel mg (after Branch last modificati on) on Thu11/16/20 at 1130, Until Discontinu ed, Routine NAPROXEN 2020- No Take by [facility] [place] [facility] ers ORAL 11-16 mouth. ity of 17:27: 00:00 [place] 32 :00 [facility] Branch hydrALAZINE Yes 25mg 25 mg, [facility] [place] [facility] ers (APRESOLINE 11-16 Oral, ity of ) tablet 25 17:25: BIDPRN, [place] mg 29 Starting Medical [facility] 11/16/20 at 1125, Until Discontinu ed, Routine, SBP >170 and/or DBP >100 enoxaparin Yes 40mg 40 mg, [facility] [place] [facility] rs (LOVENOX) 11-15 Subcutaneo ity of injection 23:00: [place], DAILY, [place] 40 mg 00 First dose Medical on [facility] Branch 11/15/20 at 1700, Until Discontinu ed, Routine docusate 2020- No 100mg 100 mg, [facility] [place] [facility] ers (COLACE) 11-15 Oral, ity of capsule 100 15:00: 17:28 DAILY, [place] mg 00 :05 First dose Medical on [facility] Branch 11/15/20 at 0900, Until Discontinu ed, Routine Polyethylen 2020- No 17g 17 g, [facility] [place] [facility] ers e Glycol 11-15 Oral, ity of 3350 15:00: 15:13 DAILY, 1 [place] (MIRALAX) 00 :00 dose, Medical powder 17 g First dose Br anch on [facility] 11/15/20 at 0900, Routine piperacilli 2020- No 3.375g 3.375 g, [facility] n-tazobacta 11-15 IV ity of m (ZOSYN) 14:00: 14:15 Piggyback, [place] 3.375 g in 00 :39 Q6H ABX, Medic al NaCl 0.9% First dose Bran ch (NS) 100 mL (after MINI-BAG last reorder) on [facility] 11/15/20 at 0800, Until Discontinu ed, 100 [...] Branch 11/15/20 at 0645, Routine NaCl 0.9% Yes 500mL at 999 Unive rs (NS) IV - mL/hr, IV ity of infusion 12:32: Infusion, [place] 500 mL 33 PRN - SEE Medical INSTRUCTIO Branch NS, 1 dose, Starting [place] 11/15/20 at 0632, Until Discontinu ed, Routine Polyethylen Yes 17g 17 g, Unive rs e Glycol 11-15 Oral, ity of 3350 10:47: Z85HBGH, [place] (MIRALAX) 45 Starting Medica l powder 17 [...] IV ity of (D50W) 10:42: Push, PRN, [place] injection 36 Starting Medica l 25 mL [...] 11-15 Oral, ity of (TYLENOL) 10:42: Q6HPRN, [place] tablet 650 06 Starting Medic al mg [...] 2,000 mL 00 :00 IV Medical Infusion, [place] ONCE, 1 dose, [place] 11/15/20 at 0115, TONI NaCl 0.9% 2020- No 1000mL at 999 Uni vers (NS) bolus 11-15 mL/hr, ity of infusion 06:30: 09:07 1,000 mL, [place] 1,000 mL 00 :00 IV Medical Infusion, [place] ONCE, 1 dose, [place] 11/15/20 at 0030, [...] 17:26:00 126 mm[Hg] Univer sity of pressure [facility] Diastolic blood 2020-11-19 17:26:00 71 mm[Hg] Unive rsity of pressure [facility] Heart rate 2020-11-19 17:26:00 60 /min [facility] Body temperature 2020-11-19 17:26:00 36.11 Tanika [facility] Respiratory rate 2020-11-19 17:26:00 18 /min [facility] Oxygen saturation in 2020-11-19 17:26:00 95 /min [facility] Arterial blood by [facility] Pulse oximetry Branch Body weight 2020-11-19 09:42:[address] [facility] BMI 2020-11-19 09:42:00 33.99 kg/m2 [facility] Body height 2020-11-15 10:45:[address] [facility] WEIGHT 2020-08-07 06:00:00 117 kg WEIGHT 2020-08-06 06:00:00 117.4 kg HEIGHT 2020-08-05 12:30:00 170.2 cm WEIGHT 2020-08-05 12:30:00 121.74 kg Procedures Procedure Date / Time Performing Clinician Source Performed CBC WITH DIFF 2020-11-19 11:39:00 Bryant [facility] BASIC METABOLIC PANEL (NA, 2020-11-19 09:39:00 Edionwe, [facility] K, CL, CO2, GLUCOSE, BUN, Medica l Branch CREATININE, [place]) BASIC METABOLIC PANEL (NA, 2020-11-18 09:29:00 Edionwe, [facility] K, CL, CO2, GLUCOSE, BUN, Medica l Branch CREATININE, CA) CBC WITH DIFF 2020-11-18 09:29:00 Jose [facility] lenoir[facility]or [facility] LACTIC ACID WHOLE BLOOD 2020-11-18 09:29:00 Maxim Guadarrama [facility] BASIC METABOLIC PANEL (NA, 2020-11-17 10:43:00 Edionwe, [facility] K, CL, CO2, GLUCOSE, BUN, Medica l Branch CREATININE, CA) CBC WITH DIFF 2020-11-17 10:43:00 Bryant [facility] POCT GLUCOSE (AUTOMATED) 2020-11-16 22:33:00 Edcheryl [facility] POCT GLUCOSE (AUTOMATED) 2020-11-16 17:20:00 [facility] US RETROPERITONEAL LIMITED 2020-11-16 15:34:20 Maury Desai [facility] POCT GLUCOSE (AUTOMATED) 2020-11-16 13:27:00 Edionnestor [facility] BASIC METABOLIC PANEL (NA, 2020-11-16 09:19:00 Edionnestor, [facility] K, CL, CO2, GLUCOSE, BUN, Medica l Branch CREATININE, CA) CBC WITH DIFF 2020-11-16 09:19:00 Bryant [facility] GLYCOSYLATED HEMOGLOBIN 2020-11-16 09:19:00 Mell Hernandez [facility] (A1C) [facility] POCT GLUCOSE (AUTOMATED) 2020-11-15 22:57:00 Bryant Ramirezbelen [facility] POCT GLUCOSE (AUTOMATED) 2020-11-15 17:37:00 Bryant Ramirezbelen [facility] POCT GLUCOSE (AUTOMATED) 2020-11-15 13:52:00 Bryant Ramirezbelen [facility] LACTIC ACID WHOLE BLOOD 2020-11-15 11:04:00 Jessica Enamorado [facility] CT ABDOMEN PELVIS WO 2020-11-15 07:18:39 Sharon Claros [facility] CONTRAST [facility] BLOOD CULTURE SCREEN 2020-11-15 06:36:00 Sharon Claros [facility] URINALYSIS 2020-11-15 06:36:00 Jessica Enamorado [facility] URINE CULTURE 2020-11-15 06:36:00 Jessica Enamorado [facility] COVID-19 (ID NOW RAPID 2020-11-15 06:36:00 Jessica Enamorado [facility] TESTING) [facility] LAB ONLY COVID 2020-11-15 06:36:00 Jessica Enamorado [facility] INTERPRETATION [facility] COMP. METABOLIC PANEL 2020-11-15 06:33:00 Jessica Enamorado [facility] ([id number]) [facility] CBC WITH DIFF 2020-11-15 06:33:00 Jessica Enamorado [facility] LACTIC ACID WHOLE BLOOD 2020-11-15 06:32:00 Jessica Enamorado [facility] Encounters Start End Encounter Admission Attending Care Care Encounter Source Date/Time Date/Time Type Type Clinicians Facility Department ID 2020-08-05 Inpatient ER ADONIS MERAZ Cardiac ICU [id number] [facility] 11:54:00 BONITA 2020-11-15 2020-11-19 [facility] Sharon Claros [facility] [id number] [facility] 00:08:00 15:21:00 Encounter Deborah Hurtado [place] [id number] ity of Maury Desai [id number] [facility] [id number] [facility] 081 Branch 2020-11-15 2020-11-15 Emergency X HYACINTH [facility] ERT [id number] Univers 00:08:00 00:08:00 SHARON chase [facility] Results Test Description Test Time [...] 34.4 g/dL 31.2-35 RDW-SD (test code = 34626-8) 46.9 fL 38.5-51.6 RDW-CV (test code = 788-0) 15.2 % 12.1-15.4 PLT (test code = 777-3) See_Comment [Au tomated message] The system which ge nerated this result transmit arnoldo reference range: 150 - 32 8 10*3/?L. The reference range was not used to interpret th is result as normal/abnormal . MPV (test code = 97358-7) 9.9 fL 9.8-13 NRBC/100 WBC (test code = See_Comment [ Automated message] The 5169131707) system which [facility] nerated this result transmit arnoldo reference range: 0.0 - 10 .0 /100 WBCs. The reference r alanna was not used to interpr et this result as normal/abnor mal. NRBC x10^3 (test code = <0.01 See_Comment [Au tomated message] The 7895699852) system which [facility] nerated this result transmit arnoldo reference range: 10*3/?L. The reference range was not u sed to interpret this result as normal/abnormal . GRAN MAT (NEUT) % (test code 61.2 % = 770-8) IMM GRAN % (test code = 0.30 % 9211817227) LYMPH % (test code = 736-9) 21.4 % MONO % (test code = 5905-5) 12.2 % EOS % (test code = 713-8) 4.3 % BASO % (test code = 706-2) 0.6 % GRAN MAT x10^3(ANC) (test 3.79 10*3/uL 1.99-6.95 code = 2726864947) IMM GRAN x10^3 (test code = <0.03 0-0.06 6984282131) LYMPH x10^3 (test code = 1.33 10*3/uL 1.09-3.23 731-0) MONO x10^3 (test code = 0.76 10*3/uL 0.36-1.02 742-7) EOS x10^3 (test code = 0.27 10*3/uL 0.06-0.53 711-2) BASO x10^3 (test code = 0.04 10*3/uL 0.01-0.09 704-7) Lab Interpretation (test Abnormal code = 94187-1) [facility] Metabolic Panel (NA, K, CL, CO2, GLUCOSE, BUN, CREATININE, CA)2020-11-19 11:37:00 Test Item Value Reference Range Interpretation Comments NA (test code = 140 mmol/L 135-145 2151603516) K (test code = 4.0 mmol/L 3.5-5 7759925673) CL (test code = 103 mmol/L 98-108 7131924527) CO2 TOTAL (test code = 27 mmol/L 23-31 1385872511) AGAP (test code = 2-16 4736911774) BUN (test code = 32 mg/dL 7-23 H 9621553139) GLUCOSE (test code = 88 mg/dL 70-110 6143522274) CREATININE (test code = 0.95 mg/dL 0.6-1.25 4900458661) CALCIUM (test code = 8.5 mg/dL 8.6-10.6 L 8350811109) eGFR Calculation mL/min/1.73m2 (Non-) (test code = 4684489710) eGFR Calculation mL/min/1.73m2 () (test code = 2959029685) CHANDRIKA (test code = CHANDRIKA) Association of [...] tests). Lab Interpretation Abnormal (test code = 06109-6) [facility] COVID [id number] 02:39:00COVID DMT InterpretationInterpretation/Recommendations: Molecular NAAT Tests for [...] COVID-19 testing the patient has had at [facility], including molecular NAATtesting (more commonly known as PCR testing and Rapid ID Now testing) and antibody testing. It does not take into account any testing that a patient has had outside of the [facility] medical record. [facility] LABORATORY SERVICESCOVID PupukxyMEHQ-OnS-3 Rapid ID NOW (no units) ? ? Date ? Value ? 11/15/2020 ? Not Detected ? [facility] Metabolic Panel (NA, K, CL, CO2, GLUCOSE, BUN, CREATININE, CA) 2020-11-18 12:03:00 Test Item Value Reference Range Interpretation Comments NA (test code = 138 mmol/L 135-145 9248047642) K (test code = 3.6 mmol/L 3.5-5 8029794456) CL (test code = 104 mmol/L 98-108 2909319942) CO2 TOTAL (test code = 26 mmol/L 23-31 7095466623) AGAP (test code = 2-16 4662745157) BUN (test code = 27 mg/dL 7-23 H 7397005881) GLUCOSE (test code = 80 mg/dL 70-110 4199951961) CREATININE (test code = 1.07 mg/dL 0.6-1.25 1239041413) CALCIUM (test code = 8.5 mg/dL 8.6-10.6 L 4357439367) eGFR Calculation mL/min/1.73m2 (Non-) (test code = 2332668260) eGFR Calculation mL/min/1.73m2 () (test code = 5996489311) CHANDRIKA (test code = CHANDRIKA) Association of [...] tests). Lab Interpretation Abnormal (test code = 43460-8) [facility] with [id number] 10:58:00 Test Item Value Reference Range Interpretation Comments WBC (test code = See_Comment [Automated 9290-2) message] The sy stem which generated this [...] RDW-SD (test code = 47.4 fL 38.5-51.6 98417-1) RDW-CV (test code = 15.3 % 12.1-15.4 788-0) PLT (test code = See_Comment [Automated 777-3) message] The sy stem which generated this result transmitted reference range : 150 - 328 10*3/ ?L. The reference r alanna was not used to interpret this result as normal/abnormal . MPV (test code = 11.5 fL 9.8-13 89622-8) NRBC/100 WBC (test See_Comment [Automat ed code = 7973017910) message] The system which generated this result transmitted reference range : 0.0 - 10.0 /100 WBCs. The refer ence range was not u sed to interpret th is result as normal/abnormal . NRBC x10^3 (test code <0.01 See_Comment [Auto mated = 2840689066) message] The s ystem which generated this result transmitted reference range : 10*3/?L. The reference range was not used to interpret this result as normal/abnormal . GRAN MAT (NEUT) % 58.5 % (test code = 770-8) IMM GRAN % (test code 0.30 % = 0763618417) LYMPH % (test code = 23.6 % 736-9) MONO % (test code = 13.2 % 5905-5) EOS % (test code = 3.8 % 713-8) BASO % (test code = 0.6 % 706-2) GRAN MAT x10^3(ANC) 4.00 10*3/uL 1.99-6.95 (test code = 6107815016) IMM GRAN x10^3 (test <0.03 0-0.06 code = 7623624240) LYMPH x10^3 (test code 1.61 10*3/uL 1.09-3.23 = 731-0) MONO x10^3 (test code 0.90 10*3/uL 0.36-1.02 = 742-7) EOS x10^3 (test code = 0.26 10*3/uL 0.06-0.53 711-2) BASO x10^3 (test code 0.04 10*3/uL 0.01-0.09 = 704-7) Lab Interpretation Abnormal (test code = 47370-5) [facility] Whole [id number] 09:41:00 Test Item Value Reference Range Interpretation Comments LACTIC ACID (test code = 1.17 mmol/L 6941836470) [facility] Metabolic Panel (NA, K, CL, CO2, GLUCOSE, BUN, CREATININE, CA)2020-11-17 12:28:00 Test Item Value Reference Range Interpretation Comments NA (test code = 139 mmol/L 135-145 6006763991) K (test code = 3.6 mmol/L 3.5-5 2717322721) CL (test code = 103 mmol/L 98-108 3306968174) CO2 TOTAL (test code = 28 mmol/L 23-31 5080693443) AGAP (test code = 2-16 0922722004) BUN (test code = 21 mg/dL 7-23 2738356530) GLUCOSE (test code = 88 mg/dL 70-110 2280471430) CREATININE (test code = 1.14 mg/dL 0.6-1.25 2644786991) CALCIUM (test code = 8.2 mg/dL 8.6-10.6 L 5776200319) eGFR Calculation mL/min/1.73m2 (Non-) (test code = 8986716525) eGFR Calculation mL/min/1.73m2 () (test code = 5717821502) CHANDRIKA (test code = CHANDRIKA) Association of [...] tests). Lab Interpretation Abnormal (test code = 57957-8) [facility] with [id number] 12:10:00 Test Item Value Reference Range Interpretation [...] RDW-SD (test code = 47.8 fL 38.5-51.6 31573-3) RDW-CV (test code = 15.3 % 12.1-15.4 788-0) PLT (test code = See_Comment [Automated 777-3) message] The sy stem which generated this result transmitted reference range : 150 - 328 10*3/ ?L. The reference r alanna was not used to interpret this result as normal/abnormal . MPV (test code = 10.2 fL 9.8-13 49031-0) NRBC/100 WBC (test See_Comment [Automat ed code = 7135769152) message] The system which generated this result transmitted reference range : 0.0 - 10.0 /100 WBCs. The refer ence range was not u sed to interpret th is result as normal/abnormal . NRBC x10^3 (test code <0.01 See_Comment [Auto mated = 7032224390) message] The s ystem which generated this result transmitted reference range : 10*3/?L. The reference range was not used to interpret this result as normal/abnormal . GRAN MAT (NEUT) % 55.3 % (test code = 770-8) IMM GRAN % (test code 0.30 % = 9068140210) LYMPH % (test code = 25.7 % 736-9) MONO % (test code = 15.0 % 5905-5) EOS % (test code = 3.1 % 713-8) BASO % (test code = 0.6 % 706-2) GRAN MAT x10^3(ANC) 3.56 10*3/uL 1.99-6.95 (test code = 5775026052) IMM GRAN x10^3 (test <0.03 0-0.06 code = 1830372033) LYMPH x10^3 (test code 1.66 10*3/uL 1.09-3.23 = 731-0) MONO x10^3 (test code 0.97 10*3/uL 0.36-1.02 = 742-7) EOS x10^3 (test code = 0.20 10*3/uL 0.06-0.53 711-2) BASO x10^3 (test code 0.04 10*3/uL 0.01-0.09 = 704-7) Lab Interpretation Abnormal (test code = 26507-1) [facility] GLUCOSE (AUTOMATED)2020-11-16 22:48:00 Test Item Value Reference Range Interpretation Comments POCT GLU (test code = 8229691902) 127 mg/dL 70-110 H Lab Interpretation (test code = Abnormal 61371-7) [facility] (A1C)2020-11-16 19:30:00 Test Item Value Reference Range Interpretation Comments HGB A1C (test code = 5.2 % 4-6 4548-4) CHANDRIKA (test code = CHANDRIKA) %A1C (NGSP) Interpretation (ADA)4.8-5.6 ? ? Normal or (Non-Diabetic Range)5.7-6.4 ? ? Increased Risk (Pre-Diabetic)>6.5 ?Diabetes Indicated Lab Interpretation Normal (test code = 06006-0) [facility] GLUCOSE (AUTOMATED)2020-11-16 17:42:00 Test Item Value Reference Range Interpretation Comments POCT GLU (test code = 1298854328) 115 mg/dL 70-110 H Lab Interpretation (test code = Abnormal 83938-7) [facility] RETROPER[facility]ONE[facility] [id number] 15:42:20 Essentially unremarkable renal ultrasound. No hydronephrosis [...] on color dopplerinterrogation. Bladder was not imaged. [facility], Radiant Results Inft User - 11/16/2020 9:43 [...] not imaged.IMPRESSIONEssentially unremarkable renal ultrasound. No hydronephrosis ornephrolithiasis.[facility]2020-11-16 13:54:00 Test Item Value Reference Range Interpretation Comments POCT GLU (test code = 2004835649) 99 mg/dL 70-110 Lab Interpretation (test code = Normal 65343-1) [facility] Metabolic Panel (NA, K, CL, CO2, GLUCOSE, BUN, CREATININE, CA)2020-11-16 10:47:00 Test Item Value Reference Range Interpretation Comments NA (test code = 139 mmol/L 135-145 0231866715) K (test code = 3.8 mmol/L 3.5-5 8103293857) CL (test code = 104 mmol/L 98-108 4924619195) CO2 TOTAL (test code = 27 mmol/L 23-31 4980775212) AGAP (test code = 2-16 0911023598) BUN (test code = 20 mg/dL 7-23 9811781960) GLUCOSE (test code = 95 mg/dL 70-110 1675146691) CREATININE (test code = 1.20 mg/dL 0.6-1.25 5375248615) CALCIUM (test code = 8.2 mg/dL 8.6-10.6 L 7100403110) eGFR Calculation mL/min/1.73m2 (Non-) (test code = 2995277347) eGFR Calculation mL/min/1.73m2 () (test code = 1173526945) CHANDRIKA (test code = CHANDRIKA) Association of [...] tests). Lab Interpretation Abnormal (test code = 54230-5) [facility] with [id number] 10:15:00 Test Item Value Reference Range Interpretation [...] RDW-SD (test code = 47.2 fL 38.5-51.6 25354-4) RDW-CV (test code = 15.3 % 12.1-15.4 788-0) PLT (test code = See_Comment [Automated 777-3) message] The sy stem which generated this result transmitted reference range : 150 - 328 10*3/ ?L. The reference r alanna was not used to interpret this result as normal/abnormal . MPV (test code = 9.8 fL 9.8-13 46255-4) NRBC/100 WBC (test See_Comment [Automat ed code = 9937252995) message] The system which generated this result transmitted reference range : 0.0 - 10.0 /100 WBCs. The refer ence range was not u sed to interpret th is result as normal/abnormal . NRBC x10^3 (test code <0.01 See_Comment [Auto mated = 4859740145) message] The s ystem which generated this result transmitted reference range : 10*3/?L. The reference range was not used to interpret this result as normal/abnormal . GRAN MAT (NEUT) % 68.2 % (test code = 770-8) IMM GRAN % (test code 0.30 % = 1559520204) LYMPH % (test code = 17.6 % 736-9) MONO % (test code = 10.7 % 5905-5) EOS % (test code = 2.8 % 713-8) BASO % (test code = 0.4 % 706-2) GRAN MAT x10^3(ANC) 5.04 10*3/uL 1.99-6.95 (test code = 5521522539) IMM GRAN x10^3 (test <0.03 0-0.06 code = 3639071207) LYMPH x10^3 (test code 1.30 10*3/uL 1.09-3.23 = 731-0) MONO x10^3 (test code 0.79 10*3/uL 0.36-1.02 = 742-7) EOS x10^3 (test code = 0.21 10*3/uL 0.06-0.53 711-2) BASO x10^3 (test code 0.03 10*3/uL 0.01-0.09 = 704-7) Lab Interpretation Abnormal (test code = 58070-4) [facility] GLUCOSE (AUTOMATED)2020-11-15 23:02:00 Test Item Value Reference Range Interpretation Comments POCT GLU (test code = 2264707413) 141 mg/dL 70-110 H Lab Interpretation (test code = Abnormal 75229-9) [facility] GLUCOSE (AUTOMATED)2020-11-15 17:50:00 Test Item Value Reference Range Interpretation Comments POCT GLU (test code = 4714126465) 117 mg/dL 70-110 H Lab Interpretation (test code = Abnormal 94157-7) [facility] GLUCOSE (AUTOMATED)2020-11-15 14:06:00 Test Item Value Reference Range Interpretation Comments POCT GLU (test code = 1127320582) 154 mg/dL 70-110 H Lab Interpretation (test code = Abnormal 19116-7) [facility] ABDOMEN PELVIS WO [id number] 13:55:56 Moderate circumferential bladder wall thickening, out [...] present.PELVIS/BLADDER: The bladder is decompressed around a Awng catheter anddemonstrates circumferential wall thickening, out of [...] gallbladder lumen. Preliminary Report Dictated by Resident: Richa Loomis, Zacarias Lipscomb MD., have reviewed this study and agree with theabove report.[facility]way[facility] Acid Whole [id number] 11:17:00 Test Item Value Reference Range Interpretation Comments LACTIC ACID (test code = 2.02 mmol/L 8177513784) [facility]2021-01-21 07:24:00 Test Item Value Reference Range Interpretation Comments APPEARANCE (test code = Cloudy Clear A 8910584294) COLOR (test code = Nieves Yellow A 5000540988) PH (test code = 4.8-8.0 1190004628) SP GRAVITY (test code = 1.003-1.030 1264652751) GLU U QUAL (test code = Normal Normal 2138398960) BLOOD (test code = Negative Negative 3844609000) KETONES (test code = Negative Negative 5071862919) PROTEIN (test code = 500 mg/dL Negative A 2887-8) UROBILIN (test code = Normal Normal 8267601798) BILIRUBIN (test code = Negative Negative 8859661797) NITRITE (test code = Negative Negative 4452239752) LEUK BRAD (test code = 500/uL Negative A 4906723214) RBC/HPF (test code = See_Comment [Autom ated message] 4755538067) The system [employer] generated this result transmit arnoldo reference range : 0 - 3 HPF. The refe rence range was not u sed to interpret th is result as normal/abnormal . WBC/HPF (test code = >182 See_Comment H [Autom ated message] 4962352173) The system [employer] generated this result transmit arnoldo reference range : 0 - 5 HPF. The refe rence range was not u sed to interpret th is result as normal/abnormal . BACTERIA (test code = Many Negative A 9850631669) MUCOUS (test code = Slight Negative LPF A 8130754276) WBC CLUMPS (test code = See_Comment H [Au tomated message] 3776898864) The system [employer] generated this result transmit arnoldo reference range : <=1 HPF. The refere nce range was not u sed to interpret th is result as normal/abnormal . CA OXALATE (test code = See_Comment [Au tomated message] 8182885820) The system [employer] generated this result transmit arnoldo reference range : <=1 HPF. The refere nce range was not u sed to interpret th is result as normal/abnormal . Lab Interpretation (test Abnormal code = 74860-2) [facility] (ID NOW RAPID TESTING)2020-11-15 07:03:00 Test Item Value Reference Range Interpretation Comments SARS-CoV-2 Rapid ID NOW Not Detected Not Detected (test code = 96359-0) CHANDRIKA (test code = CHANDRIKA) ID NOW COVID-19 Assay is an isothermal nucleic acid amplification test intended for the qualitative detection of nucleic acid from SARS-CoV-2 viral RNA in nasopharyngeal (CAD INTERN) specimens. It is used under Emergency Use [...] indicated. Lab Interpretation Normal (test code = 78180-0) [facility]. METABOLIC PANEL (12748)2020-11-15 06:59:00 Test Item Value Reference Range Interpretation Comments NA (test code = 143 mmol/L 135-145 8404684437) K (test code = 4.1 mmol/L 3.5-5 1708695798) CL (test code = 104 mmol/L 98-108 7952948800) CO2 TOTAL (test code = 26 mmol/L 23-31 2652126403) AGAP (test code = 2-16 5464218334) BUN (test code = 25 mg/dL 7-23 H 0822114497) GLUCOSE (test code = 168 mg/dL 70-110 H 0365694062) CREATININE (test code = 1.24 mg/dL 0.6-1.25 8352767515) TOTAL BILI (test code = 1.2 mg/dL 0.1-1.1 H 6584245000) CALCIUM (test code = 9.2 mg/dL 8.6-10.6 2745464359) T PROTEIN (test code = 8.2 g/dL 6.3-8.2 1275509631) ALBUMIN (test code = 4.1 g/dL 3.5-5 7512044470) ALK PHOS (test code = 120 U/L 34-122 3263539832) ALTv (test code = 28 U/L 5-50 1742-6) AST(SGOT) (test code = 41 U/L 13-40 H 4021509216) eGFR Calculation mL/min/1.73m2 (Non-) (test code = 2811445984) eGFR Calculation mL/min/1.73m2 () (test code = 4126443491) CHANDRIKA (test code = CHANDRIKA) Association of [...] tests). Lab Interpretation Abnormal (test code = 09439-8) [facility] WITH [id number] 06:45:00 Test Item Value Reference Range Interpretation Comments WBC (test code = See_Comment H [Automated 7390-2) message] The system which generated this result transmit arnoldo reference range : 4.20 - 10.70 10*3/?L. The reference range was not used to interpret this result as normal/abnormal . RBC (test code = See_Comment [Automated 979-8) message] The system which generated this result [...] RDW-SD (test code = 48.8 fL 38.5-51.6 22272-2) RDW-CV (test code = 15.5 % 12.1-15.4 H 788-0) PLT (test code = See_Comment [Automated 777-3) message] The system which generated this result transmit arnoldo reference range : 150 - 328 10*3/ ?L. The reference range was not u sed to interpret th is result as normal/abnormal . MPV (test code = 9.5 fL 9.8-13 L 27167-1) NRBC/100 WBC (test See_Comment [Automat ed code = 0658679146) message] The system which generated this result transmit arnoldo reference range : 0.0 - 10.0 /100 WBCs. The reference range was not used to interpret this result as normal/abnormal . NRBC x10^3 (test code <0.01 See_Comment [Auto mated = 1309945045) message] The system which generated this result transmit arnoldo reference range : 10*3/?L. The reference range was not used to interpret this result as normal/abnormal . GRAN MAT (NEUT) % 79.9 % (test code = 770-8) IMM GRAN % (test code 0.70 % = 5447991067) LYMPH % (test code = 8.3 % 736-9) MONO % (test code = 9.5 % 5905-5) EOS % (test code = 1.1 % 713-8) BASO % (test code = 0.5 % 706-2) GRAN MAT x10^3(ANC) 12.19 10*3/uL 1.99-6.95 H (test code = 1520287195) IMM GRAN x10^3 (test 0.10 10*3/uL 0-0.06 H code = 0902843888) LYMPH x10^3 (test code 1.27 10*3/uL 1.09-3.23 = 731-0) MONO x10^3 (test code 1.45 10*3/uL 0.36-1.02 H = 742-7) EOS x10^3 (test code = 0.17 10*3/uL 0.06-0.53 711-2) BASO x10^3 (test code 0.08 10*3/uL 0.01-0.09 = 704-7) Lab Interpretation Abnormal (test code = 94721-5) [facility] Whole [id number] 06:41:00 Test Item Value Reference Range Interpretation Comments LACTIC ACID (test code = 3.45 mmol/L 4619817856) [facility]wayHEMOGLOBIN [id number] 09:54:00 Test Item Value Reference Range Interpretation Comments HEMOGLOBIN A1C (BEAKER) (test code = 6.2 % 4.3-6.1 H 368) Manager Beauty ID - ADMINHEMOGLOBIN [id number] 09:45:00 Test Item Value Reference Range Interpretation Comments HEMOGLOBIN A1C (BEAKER) (test code = 6.1 % 4.3-6.1 368) Manager Beauty ID - ADMINBASIC METABOLIC [id number] 04:58:00 Test Item Value Reference Range Interpretation [...] S NOT APPLICABLE FOR DIALYSIS PATIEN TS. Manager Beauty ID - [id number] 04:58:00 Test Item Value Reference Range Interpretation Comments MAGNESIUM (BEAKER) (test code = 1.7 mg/dL 1.6-2.6 627) Manager Beauty ID - EDASICBC W/PLT COUNT & AUTO [id number] 04:36:00 Test Item Value Reference Range Interpretation [...] (BEAKER) (test code = 2801) BASIC METABOLIC [id number] 07:31:00 Test Item Value Reference Range Interpretation [...] S NOT APPLICABLE FOR DIALYSIS PATIEN TS. Manager Beauty ID - DEMOND MCBC W/PLT COUNT & AUTO [id number] 07:21:00 Test Item Value Reference Range Interpretation [...] = 2801) RAD, CHEST, 1 VIEW, NON [id number] 08:26:00Reason for exam:->post-ppmShould this be performed at the bedside?->YesFINAL REPORT CLINICAL HISTORY: post-ppm TECHNIQUE: 1 view of the chest. COMPARISON: 08/07/2020 IMPRESSION: A left chest wall pacemaker is again seen without pneumothorax. There are no new infiltrates or significant effusions. Cardiomegaly is again noted. Signed: Michelle Tariq MDReport Verified Date/Time: 08/08/2020 08:26:51 Reading Location: [facility] Radiology Reading Room BASIC METABOLIC [id number] 06:17:00 Test Item Value Reference Range Interpretation [...] S NOT APPLICABLE FOR DIALYSIS PATIEN TS. Manager Beauty ID - DEMOND MCBC W/PLT COUNT & AUTO [id number] 05:59:00 Test Item Value Reference Range Interpretation [...] = 2801) RAD, CHEST, 1 VIEW, NON [id number] 20:04:00Reason for exam:->post ppmShould this be performed at the bedside?->YesFINAL REPORT AP view of the chest dated 08/07/2020 CLINICAL INFORMATION: post ppm Comment: Heart is normal in size. Thoracic aorta is ectatic. AICD is present. Pulmonary vasculature is unremarkable. Lungs are clear. No pulmonary infiltrate or pleural effusion is present. Impression: Ectatic thoracic aorta. Signed: Jame Duckworth MDReport Verified Date/Time: 08/07/2020 20:04:22Reading Location: [address] Consult Reading Room POCT-GLUCOSE [id number] 16:15:00 Test Item Value Reference Range Interpretation Comments POC-GLUCOSE METER 132 mg/dL 70-110 H : TESTED A T [facility] 6720 (BEAKER) (test code = [facility]BBI[facility] Franz [facility], 1538) [address]: Manager Beauty/Techni sara ID = [id number] for SALOMON KRUSE BASIC METABOLIC [id number] 06:15:00 Test Item Value Reference Range Interpretation [...] S NOT APPLICABLE FOR DIALYSIS PATIEN TS. Manager Beauty ID - PIAYA LSpecimen slightly ictericCBC W/PLT COUNT & AUTO [id number] 04:26:00 Test Item Value Reference Range Interpretation [...] PERCENT (BEAKER) (test code = 2801) PROTHROMBIN TIME/[id number] 04:18:00 Test Item Value Reference Range Interpretation [...] is2.5-3.5 for patients wiht mechanical heart valves.POCT-GLUCOSE [id number] 21:14:00 Test Item Value Reference Range Interpretation Comments POC-GLUCOSE METER 138 mg/dL 70-110 H : TESTED A T [facility] 67[address] (BEAKER) (test code = ZARIA SABILLON, 1538) [address]: Manager Beauty/Techni sara ID = [id number] for [place]IS [place] CT, BRAIN, WITHOUT [id number] 18:41:00Unlisted Reason for Exam - Click Yes [...] Zahida Dobbs MDReport Verified Date/Time: 08/06/2020 18:41:07 [id number] 14:05:00 Test Item Value Reference Range Interpretation Comments MAGNESIUM (BEAKER) (test code = 1.8 mg/dL 1.6-2.6 627) Manager Beauty ID - ONA FSARS-COV2/RT-PCR ([facility])2020-08-06 13:22:00 Test Item Value Reference Range Interpretation Comments SARS-COV2/RT-PCR (test Negative Not Detected, Negative, code = 6819272) See external report for linked test SARS-COV-[address] [facility] NINA (test code = 9058590) Negative result for this test determines that [...] 564(g) of the Act.Fact Sheet for Healthcare Providers:https://www.Givit.Qoopl/sites/default/files/product/documents/Fact_Shee r_PT_Niypcnbwm_Phwk_MVWV-AsH-8.pdfFact Sheet for Healthcare Patients:https://www.Givit.Qoopl/sites/default/files/product/ documents/Qplv_Qhcfr_Avcwqywv_Xfzp_PCNU-GsN-4.pdfPerforming Laboratory:[facility], [place] [address]XUYO-ODJWFDK METER 2020-08-06 12:21:00 Test Item Value Reference Range Interpretation Comments POC-GLUCOSE METER 180 mg/dL 70-110 H : TESTED A T [facility] 67[address] (BEAKER) (test code = ZARIA Franz [facility], 1538) 72[address]: Manager Beauty/Techni sara ID = [id number] for JOHN Saenz LUIS BASIC METABOLIC [id number] 05:00:00 Test Item Value Reference Range Interpretation [...] S NOT APPLICABLE FOR DIALYSIS PATIEN TS. Manager Beauty ID - DEMOND MCBC W/PLT COUNT & AUTO [id number] 04:43:00 Test Item Value Reference Range Interpretation [...] PERCENT (BEAKER) (test code = 2801) TROPONIN [id number] 19:55:00 Test Item Value Reference Range Interpretation [...] failure, acidosis, acute neurological disease, and persistent tachyarrhythmia.Manager Beauty ID - RMBASIC METABOLIC PANEL 2020-08-05 19:47:00 [...] S NOT APPLICABLE FOR DIALYSIS PATIEN TS. Manager Beauty ID - RMBLOOD GAS, [id number] 19:17:00 Test Item Value Reference Range Interpretation [...] FIO2 (BEAKER) (test code = 1819) 50.0 [id number] 19:11:00 Test Item Value Reference Range Interpretation Comments MAGNESIUM (BEAKER) 2.1 mg/dL 1.6-2.6 Specimen slightly (test code = 627) hemolyzed Manager Beauty ID - RMPOCT-GLUCOSE [id number] 18:45:00 Test Item Value Reference Range Interpretation Comments POC-GLUCOSE METER 133 mg/dL 70-110 H : TESTED A T [facility] 6720 (BEAKER) (test code = ZARIA [place], 1538) 67[address]: Manager Beauty/Techni sara ID = [id number] for LUIS [place] RAD, CHEST, 1 VIEW, NON [id number] 18:01:00Reason for exam:->post TVP placementShould this be [...] unchanged. IMPRESSION:No significant interval change. Signed: Zahida Dobbseport Verified Date/Time: 08/05/2020 18:01:39 VALPROIC ACID LEVEL, TOTAL 2020-08-05 14:05:00 Test Item Value Reference Range Interpretation Comments VALPROIC ACID TOTAL (BEAKER) (test 30 ug/mL 50-100 L code = 924) Therapeutic range for some clinical conditions may be >100 ug/mLOperator ID - RMCOMPREHENSIVE METABOLIC [id number] 14:03:00 Test Item Value Reference Range Interpretation [...] S NOT APPLICABLE FOR DIALYSIS PATIEN TS. Manager Beauty ID - DAYAGTROPONIN [id number] 13:59:00 Test Item Value Reference Range Interpretation [...] failure, acidosis, acute neurological disease, and persistent tachyarrhythmia.Manager Beauty ID - KEVINMAHINGB-TYPE NATRIURETIC FACTOR (BNP)2020-08-05 13:59:00 Test Item Value Reference Range Interpretation Comments B-TYPE NATRIURETIC PEPTIDE (BEAKER) 29 pg/mL 0-100 (test code = 700) Manager Beauty ID - DAYAGBLOOD GAS, [id number] 13:29:00 Test Item Value Reference Range Interpretation [...] 1819) 100.0 CBC W/PLT COUNT & AUTO [id number] 13:29:00 Test Item Value Reference Range Interpretation [...] = 2801) RAD, CHEST, 1 VIEW, NON [id number] 13:12:00Reason for exam:- >intubationShould this be performed [...] MDReport Verified Date/Time: 08/05/2020 13:12:04 Reading Location: [facility] C013T Transitional Reading Room 01:12 PM"
[2021-09-28 17:35] LABS: Absolute Lymphocytes (CBC) 1.3 K/uL (0.7-4.9); Hematocrit 31.8 % (39.6-49.0); Lymphocytes % 18.1 % (15.3-44.8); RBC Red Blood Cell Count 3.74 M/uL (4.33-5.43)
[2021-09-28 17:55] LABS: ALT/SGPT 21 U/L (12-78); AST/SGOT 16 U/L (15-37); Albumin 2.4 g/dL (3.4-5.0); Alkaline Phosphatase 84 U/L (45-117); BUN Blood Urea Nitrogen 16 mg/dL (7-18); Bicarbonate 26 mmol/L (21-32); Bilirubin Total 0.9 mg/dL (0.2-1.0); Glucose Level 109 mg/dL (74-106); Potassium 3.9 mmol/L (3.5-5.1); Protein, Total 8.3 g/dL (6.4-8.2); Sodium Level 140 mmol/L (136-145)
--- NOTE | 2021-09-28 18:33 | RAD REPORT ---
EXAM DESCRIPTION: CT - Abdomen Pelvis W Contrast - 09/28/2021 5:58 pm CLINICAL HISTORY: Abdominal pain COMPARISON: July 2021 TECHNIQUE: Computed axial tomography of the abdomen pelvis was obtained. 100 cc Isovue-300 was admin istered intravenously. Oral contrast was not requested which limits evaluation of bowel. All CT scans are performed using dose optimization technique as appropriate and may include automated exposure control or mA/KV adjustment according to patient size. FINDINGS: The liver, spleen, pancreas, adrenal and kidneys appear unremarkable. Wang catheter is present within the bladder. Bladder wall is thickened. Normal appendix. A moderate amount stool within the colon with stool mildly dilating the rectum. There is no evidence of diverticulitis. Laxity of the right lateral abdominal wall musculature IMPRESSION: Bladder wall thickening may indicate cystitis
--- NOTE | 2021-09-28 18:33 | RAD REPORT ---
EXAM DESCRIPTION: CT - Head Brain Wo Cont - 09/28/2021 5:53 pm CLINICAL HISTORY: Alteration of awareness/confusion COMPARISON: 2020 TECHNIQUE: Computed axial tomography of the head was obtained. IV contrast was not requested. All CT scans are performed using dose optimization technique as appropriate and may include automated exposure control or mA/KV adjustment according to patient size. FINDINGS: An intracranial bleed is not seen . The ventricles are normal in caliber. No extra-axial fluid collection is noted. 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 8 millimeters density within the right frontal scalp unchanged is benign. Mild low-density areas within periventricular, deep and subcortical white matter likely represent isc hemic changes secondary to small vessel disease. Fluid within the sinuses/ mastoids is not seen. IMPRESSION: No acute intracranial abnormality is seen. If patient's symptoms persist MRI of the bra in would be recommended.
[2021-09-28 18:38] LABS: Urine Blood 2+ (Negative); Urine Glucose Negative (Negative); Urine Protein 1+ (Negative)
[2021-09-28 18:49] LABS: Urine Bacteria 20-50 /HPF (NONE SEEN); Urine RBC <5 /HPF (NONE SEEN)
--- NOTE | 2021-09-28 19:17 | EDPHYS ---
Physician Documentation [facility] Name: Raphael Hoyos Age: 65 yrs Sex: Male : 1955 Arrival Date: 09/28/2021 Time: 16:33 Bed 6 Private MD: ED Physician Ector Douglas HPI: 09/28 17:06 This 65 yrs old Male presents to ER via EMS with complaints of AMS. pm1 17:06 The patient presents with decreased mental status, Not at baseline per fpc. pm1 Onset: The symptoms/episode began/occurred today. Possible causes: UTI, diagnosed with e. coli by culture per fpc and started on keflex . Associated signs and symptoms: Pertinent positives: abdominal pain, Pertinent negatives: chest pain, shortness of breath. 65-year-old patient sent to the ER with complaints of altered mental status. Patient recently diagnosed with E. coli urinary tract infection per [facility]pc and started on Keflex. Patient with altered mental status today and was sent by MD at [facility] for admission for IV antibiotic therapy due to no improvement on p.o. therapy. Historical: - Allergies: 19:56 No Known Allergies; tw5 - Immunization history:: Adult Immunizations up to date, Client reports having NOT received the Covid vaccine. Flu vaccine is up to date. - Social history:: Smoking status: Patient/guardian denies using tobacco. ROS: 17:06 Constitutional: Negative for fever, chills, and weight loss, Cardiovascular: Negative pm1 for chest pain, palpitations, and edema, Respiratory: Negative for shortness of breath, cough, wheezing, and pleuritic chest pain. 17:06 Back: Negative for injury and pain, : Negative for injury, bleeding, discharge, and swelling, MS/Extremity: Negative for injury and deformity, Skin: Negative for injury, rash, and discoloration. 17:06 Abdomen/GI: Positive for abdominal pain, of the suprapubic area, Negative for nausea, vomiting, and diarrhea. 17:06 All other systems are negative. Exam: 17:06 Constitutional: This is a well developed, well nourished patient who is awake, alert, pm1 and in no acute distress. Head/Face: Normocephalic, atraumatic. 17:06 Skin: Warm, dry with normal turgor. Normal color with no rashes, no lesions, and no evidence of cellulitis. MS/ Extremity: Pulses equal, no cyanosis. Neurovascular intact. Full, normal range of motion. 17:06 Eyes: Exam is negative for acute changes, Extraocular movements: no acute changes, Conjunctiva: no acute changes, no injection, Sclera: no acute changes, icterus, is not appreciated. 17:06 ENT: Exam is negative for acute changes, Mouth: Lips: normal, moist, Oral mucosa: normal, pink and intact, moist. 17:06 Cardiovascular: Exam negative for acute changes, Rate: normal, Rhythm: regular, Pulses: no pulse deficits are appreciated. 17:06 Respiratory: Exam negative for acute changes, respiratory distress, shortness of breath. 17:06 Abdomen/GI: Inspection: obese Palpation: soft, in all quadrants, mild abdominal tenderness, in the suprapubic area. 17:06 Neuro: Orientation: to person, place, Not oriented to time, situation, Motor: moves all fours. Vital Signs: 16:34 BP 100 / 63; Pulse 79; Resp 18; Temp 99.9; Pulse Ox 97% ; Pain 9/10; al4 16:43 BP 100 / 63; Pulse 79; Resp 18; Temp 99.9; Pulse Ox 97% ; al4 17:30 BP 104 / 76; Pulse 74; Resp 18; Pulse Ox 95% ; al4 18:30 BP 128 / 81; Pulse 70; Resp 18; Temp 97.7; Pulse Ox 95% ; al4 19:40 BP 124 / 91; Pulse 81; Resp 18; Pulse Ox 96% on R/A; Pain 0/10; tw5 MDM: 16:55 Patient medically screened. pm1 19:11 Data reviewed: vital signs. Data interpreted: Pulse oximetry: on room air is 95 %. pm1 Interpretation: normal. 19:11 Counseling: I had a detailed discussion with the patient and/or guardian regarding: the pm1 historical points, exam findings, and any diagnostic results supporting the discharge/admit diagnosis, lab results, the need for further work-up and treatment in the hospital. 19:16 ED course: Wang catheter was replaced and urine sample obtained for urine dip, micro pm1 and culture. 19:16 ED course: Patient currently taking keflex for uti. Patient was sent to the ER by pm1 fpc MD for admission for IV abx due to UTI and AMS. 19:24 Physician consultation: Jonathan GONZALEZ was contacted at 19:24, regarding admission, pm1 patient's condition, and will see patient in ED. 09/28 16:59 Order name: CBC with Diff; Complete Time: 17:59 pm1 09/28 16:59 Order name: CMP; Complete Time: 17:59 pm1 09/28 16:59 Order name: Procalcitonin; Complete Time: 18:26 pm1 09/28 16:59 Order name: Lactate; Complete Time: 17:59 pm1 09/28 16:59 Order name: Blood Culture Adult (2) pm1 09/28 16:59 Order name: Urine Microscopic Only; Complete Time: 18:50 pm1 09/28 16:59 Order name: CT Head Brain wo Cont; Complete Time: 18:46 pm1 09/28 16:59 Order name: IV Saline Lock; Complete Time: 17:30 pm1 09/28 16:59 Order name: Urine Dipstick-Ancillary (obtain specimen); Complete Time: 18:39 pm1 09/28 16:59 Order name: CT Abd/Pelvis - IV Contrast Only; Complete Time: 18:46 pm1 09/28 18:38 Order name: Urine Dipstick-Ancillary; Complete Time: 18:46 EDMS 09/28 18:50 Order name: Urine Culture EDMS 09/28 19:50 Order name: SARS-COV-2 RT PCR; Complete Time: 21:47 EDMS 09/28 18:39 Order name: Wang; Complete Time: 18:39 al4 Administered Medications: No medications were administered Disposition: 09/29 08:00 Co-signature as Attending Physician, Ector Douglas MD I agree with the assessment and rn plan of care. Attestation: The patient's history, exam findings, diagnostics, and a summary of any interventions or procedures was reviewed in detail with Saabs Burris NP. Disposition Summary: 09/28/21 19:16 Hospitalization Ordered Hospitalization Status: Inpatient Admission pm1 Location: Telemetry/[facility] (Inpatient) pm1 Condition: Stable pm1 Problem: new pm1 Symptoms: have improved pm1 Bed/Room Type: Standard pm1 Provider: Fish Carey(09/28/21 19:24) pm1 Room Assignment: [facility](09/28/21 21:59) lp1 Diagnosis - UTI/ Urinary tract infection, site not specified pm1 - Altered mental status, unspecified pm1 Forms: - Medication Reconciliation Form pm1 - SBAR form pm1 Signatures: Dispatcher [employer] EDMS Ector Douglas MD MD rn Shelbie Ramires RN RN lp1 Sabas Burris, PROGRAM ADVISOR PROGRAM ADVISOR pm1 Lulú Casarez tw5 Yovani Balderas al4 Corrections: (The following items were deleted from the chart) 09/28 17:03 16:55 Home Meds: acetaminophen 325 mg Oral cap 325 mg as needed; al4 al4 17:03 16:55 Home Meds: aspirin 81 mg Oral chew 1 tab once daily; al4 al4 17:03 16:55 Home Meds: cephalexin 500 mg Oral cap 1 cap twice a day; al4 al4 17:03 17:03 PMHx: CVA; al4 al4 17:03 17:03 PMHx: Myocardial infarction; al4 al4 17:03 17:03 PSHx: Cholecystectomy; al4 al4 18:39 16:59 Wang ordered. pm1 al4 19:24 19:16 Jonathan Simpson pm1 pm1 19:50 19:12 CORONAVIRUS+MR.LAB.BRZ ordered. EDOK EDMS 21:59 19:16 pm1 lp1
--- NOTE | 2021-09-28 19:17 | ER ---
Nurse's Notes [facility] Name: Raphael Hoyos Age: 65 yrs Sex: Male : 1955 Arrival Date: 09/28/2021 Time: 16:33 Bed 6 Private MD: Diagnosis: UTI/ Urinary tract infection, site not specified;Altered mental status, unspecified Presentation: 09/28 16:43 Chief complaint: EMS states: "[facility] called to report patient was al4 exhibiting confusion. Pt is ao x 4 for us. Pt currently has a parikh catheter due to multiple UTI's in the past couple weeks. Patients urine recently tested positive for e. coli. family doc sent pt to be hospitalized and treated with IV antibiotics for UTI.". Coronavirus screen: At this time, the client does not indicate any symptoms associated with coronavirus-19. Ebola Screen: No symptoms or risks identified at this time. Initial Sepsis Screen: Does the patient meet any 2 criteria? No. Patient's initial sepsis screen is negative. Does the patient have a suspected source of infection? No. Patient's initial sepsis screen is negative. Risk Assessment: Do you want to hurt yourself or someone else? Patient reports no desire to harm self or others. Onset of symptoms was September 28, 2021. 16:43 Method Of Arrival: EMS al4 16:43 Acuity: DANIELA 3 al4 19:00 Transition of care: patient was received from another setting of care ([facility]. Triage Assessment: 16:34 General: Appears in no apparent distress. uncomfortable, Behavior is calm, cooperative, al4 appropriate for age. Pain: Pain currently is 9 out of 10 on a pain scale. EENT: No deficits noted. Neuro: Level of Consciousness is awake, alert, obeys commands, confused, Oriented to person, place, time, situation, Appropriate for age. Cardiovascular: Heart tones present Capillary refill < 3 seconds Patient's skin is warm and dry. Respiratory: Airway is patent Respiratory effort is even, unlabored, Respiratory pattern is regular, symmetrical. GI: No signs and/or symptoms were reported involving the gastrointestinal system. :. Derm: No signs and/or symptoms reported regarding the dermatologic system. Musculoskeletal: No signs and/or symptoms reported regarding the musculoskeletal system. Historical: - Allergies: 19:56 No Known Allergies; tw5 - Immunization history:: Adult Immunizations up to date, Client reports having NOT received the Covid vaccine. Flu vaccine is up to date. - Social history:: Smoking status: Patient/guardian denies using tobacco. Screenin:40 Abuse screen: Denies threats or abuse. Nutritional screening: No deficits noted. al4 Tuberculosis screening: No symptoms or risk factors identified. 19:40 Fall Risk Secondary diagnosis (15 points) IV access (20 points). tw5 Assessment: 16:35 Reassessment: see triage assessment. al4 17:30 Reassessment: No changes from previously documented assessment. Patient and/or family al4 updated on plan of care and expected duration. Pain level reassessed. Patient is alert, oriented x 3, equal unlabored respirations, skin warm/dry/pink. 18:30 Reassessment: No changes from previously documented assessment. Patient and/or family al4 updated on plan of care and expected duration. Pain level reassessed. Patient is alert, oriented x 3, equal unlabored respirations, skin warm/dry/pink. old parikh discontinued and new parikh placed. see parikh charting. 19:40 General: Appears in no apparent distress. obese, Behavior is calm, cooperative, drowsy. tw5 General: Reports " i just want to take a nap" Patient given an extra warm blanket, and lights dimmed. Neuro: Level of Consciousness is awake, alert, obeys commands, Oriented to person, place, time, situation. 19:40 Cardiovascular: Capillary refill < 3 seconds is brisk in bilateral fingers. tw5 Respiratory: Airway is patent Trachea midline Respiratory effort is even, unlabored. 19:56 General: Patient asked if he had any known allergies. Patient stated no. . tw5 Vital Signs: 16:34 BP 100 / 63; Pulse 79; Resp 18; Temp 99.9; Pulse Ox 97% ; Pain 9/10; al4 16:43 BP 100 / 63; Pulse 79; Resp 18; Temp 99.9; Pulse Ox 97% ; al4 17:30 BP 104 / 76; Pulse 74; Resp 18; Pulse Ox 95% ; al4 18:30 BP 128 / 81; Pulse 70; Resp 18; Temp 97.7; Pulse Ox 95% ; al4 19:40 BP 124 / 91; Pulse 81; Resp 18; Pulse Ox 96% on R/A; Pain 0/10; tw5 ED Course: 16:33 Patient arrived in ED. al4 16:34 Arm band placed on. al4 16:39 Sabas Burris NP is PHCP. pm1 16:39 Ector Douglas MD is Attending Physician. pm1 16:40 Patient has correct armband on for positive identification. Bed in low position. Call al4 light in reach. Side rails up X2. Pulse ox on. NIBP on. Door closed. Noise minimized. 16:48 Triage completed. al4 17:23 Inserted saline lock: 20 gauge in right antecubital area, using aseptic technique. jd3 Blood collected. 17:29 Paolo Tatum RN is Primary Nurse. jd3 17:52 CT Head Brain wo Cont In Process Unspecified. EDMS 17:58 CT Abd/Pelvis - IV Contrast Only In Process Unspecified. EDMS 18:38 Urine Microscopic Only Sent. al4 18:40 Parikh cath inserted, using sterile technique, 16 Fr., by ak, balloon inflated, to al4 gravity drainage, urine specimen collected. returned cloudy urine. Patient tolerated well. 19:15 Jonathan Simpson PA is Hospitalizing Provider. pm1 19:24 Fish Carey MD is Hospitalizing Provider. pm1 19:40 Awaiting bed assignment. tw5 19:40 No provider procedures requiring assistance completed. tw5 19:57 SARS-COV-2 RT PCR Sent. tw5 20:46 Primary Nurse role handed off by Paolo Tatum RN cs9 Administered Medications: No medications were administered Outcome: 19:16 Decision to Hospitalize by Provider. pm1 22:05 Patient left the ED. lp1 Signatures: Dispatcher [employer] EDMS Shelbie Ramires RN RN lp1 Sabas Burris, JANNET LASER BEAM MACHINE OPERATOR pm1 Paolo Tatum RN RN jd3 Wood, Tiffany tw5 Reema Dickson cs9 Yovani Balderas al4 Corrections: (The following items were deleted from the chart) 17:03 16:55 Home Meds: acetaminophen 325 mg Oral cap 325 mg as needed; al4 al4 17:03 16:55 Home Meds: aspirin 81 mg Oral chew 1 tab once daily; al4 al4 17:03 16:55 Home Meds: cephalexin 500 mg Oral cap 1 cap twice a day; al4 al4 17: 17:03 PMHx: CVA; al4 al4 17: 17:03 PMHx: Myocardial infarction; al4 al4 17: 17:03 PSHx: Cholecystectomy; al4 al4 19:01 16:43 Chief complaint: EMS states: "[facility] called to report patient greg was exhibiting confusion. Pt is ao x 4 for us. Pt currently has a parikh catheter due to multiple UTI's in the past couple weeks. Patients urine recently tested positive for e. coli" al4 19:50 19:49 CORONAVIRUS+MR.LAB.CLEMENTINA drawn and sent. tw5 EDMS
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
[2021-09-28] MEDS: Meropenem 1 GM/100 ML BAG IV SCH (21:00)
[2021-09-28 21:06] VITALS: BMI 34.4
[2021-09-28] MEDS ORDERED: ONDANSETRON 4 MG/2 ML VIAL IV PRN (21:06)
[2021-09-28] MEDS: NA CHLORIDE 0.9% 1,000 ML IV SCH (21:06)
[2021-09-28] MEDS ORDERED: NA CHLORIDE 0.9% 1,000 ML ONE (21:18)
[2021-09-28] MEDS ORDERED: NA CHLORIDE 0.9% 100 ML ONE (21:18)
[2021-09-28] MEDS ORDERED: Meropenem 1000 MG/VIAL IV ONE (21:18)
[2021-09-29] MEDS: ACETAMINOPHEN 500 MG TAB PO PRN ×2 (00:57→08:43)
[2021-09-29] MEDS ORDERED: Meropenem 1000 MG/VIAL IV ONE (05:07)
[2021-09-29] MEDS ORDERED: NA CHLORIDE 0.9% 100 ML ONE (05:20)
[2021-09-29] MEDS: Meropenem 1 GM/100 ML BAG IV SCH ×4 (05:58→21:07)
[2021-09-29 06:04] LABS: Absolute Lymphocytes (CBC) 1.3 K/uL (0.7-4.9); Hematocrit 30.9 % (39.6-49.0); Lymphocytes % 24.5 % (15.3-44.8); MPV 7.1 fL (7.6-11.3); RBC Red Blood Cell Count 3.65 M/uL (4.33-5.43)
[2021-09-29 06:29] LABS: ALT/SGPT 20 U/L (12-78); AST/SGOT 18 U/L (15-37); Albumin 2.4 g/dL (3.4-5.0); Alkaline Phosphatase 82 U/L (45-117); BUN Blood Urea Nitrogen 17 mg/dL (7-18); Bicarbonate 26 mmol/L (21-32); Bilirubin Total 0.7 mg/dL (0.2-1.0); Glucose Level 101 mg/dL (74-106); HDL Cholesterol 32 mg/dL (40-60); LDL Cholesterol, Calculated 47 (<130); Magnesium 2.2 mg/dL (1.8-2.4); Phosphorus 4.2 mg/dL (2.5-4.9); Potassium 3.7 mmol/L (3.5-5.1); Protein, Total 8.1 g/dL (6.4-8.2); Sodium Level 141 mmol/L (136-145)
[2021-09-29] MEDS: ENOXAPARIN 40 MG/0.4 ML SQ SCH (08:44)
[2021-09-29] MEDS: NA CHLORIDE 0.9% 1,000 ML IV SCH ×3 (08:44→21:04)
[2021-09-29] MEDS ORDERED: POTASSIUM CL SA 10 MEQ TAB PO ONE (09:00)
[2021-09-29] MEDS ORDERED: LOPERAMIDE HCL 2 MG CAPSULE PO PRN (15:09)
--- NOTE | 2021-09-29 15:12 | P.PN ---
Subjective Date of Service: 09/29/21 Patient is from [facility]. Patient with a multi-drug resistant urinary tract infection. Awaiting for culture results. Continue with IV antibiotic therapy. Patient is more lethargic than baseline. Continue with gentle hydration as well. Review of Systems is unable to be obtained Physical Examination - Vital Signs Temperature: 97.3 F Blood Pressure: 132/72 Pulse: 61 Respirations: 16 Pulse Ox (%): 100 - Physical Exam General: Demented, Confused Respiratory: Clear to auscultation bilaterally, Normal air movement Cardiovascular: Regular rate/rhythm, Normal S1 S2 Gastrointestinal: Normal bowel sounds, Soft and benign, Non-distended Musculoskeletal: No clubbing Neurological: Cranial nerves 3-12 intact, Abnormal gait, Abnormal strength, Abnormal sensation - Studies Laboratory Data (last 24 hrs) 09/28/21 17:23: Sodium 140, Potassium 3.9, BUN 16, Creatinine 0.68, Glucose 109 H, Total Bilirubin 0.9, AST 16, ALT 21, Alkaline Phosphatase 84 09/28/21 15:45: WBC 7.00, Hgb 10.8 L, Hct 31.8 L, Plt Count 285 Assessment & Plan - Problems (Diagnosis) (1) Altered mental status Current Visit: No Status: Acute Qualifiers: Altered mental status type: somnolence Qualified Code(s): R40.0 - Somnolence (2) Bilateral knee pain Onset Date: 02/22/18 Current Visit: No Status: Acute Qualifiers: Chronicity: acute Qualified Code(s): M25.561 - Pain in right knee; M25.562 - Pain in left knee; M25.562 - Pain in left knee (3) ESBL (extended spectrum beta-lactamase) producing bacteria infection Current Visit: No Status: Acute (4) HTN (hypertension) Current Visit: No Status: Chronic Qualifiers: Hypertension type: primary hypertension Qualified Code(s): I10 - Essential (primary) hypertension (5) Hyperlipidemia Current Visit: No Status: Chronic Qualifiers: Hyperlipidemia type: unspecified Qualified Code(s): E78.5 - Hyperlipidemia, unspecified (6) Insulin dependent diabetes mellitus Current Visit: No Status: Chronic (7) BPH (benign prostatic hyperplasia) Current Visit: No Status: Suspected Qualifiers: Lower urinary tract symptom presence: symptoms present Lower urinary tract symptom detail: straining on urination Qualified Code(s): N40.1 - Benign prostatic hyperplasia with lower urinary tract symptoms; R39.16 - Straining to void (8) History of stroke Current Visit: Yes Status: Acute - Plan 1. Continue with IV hydration 2. Continue with IV antibiotics 3. Continue with pain control 4. Diet as tolerated 5. Strict blood pressure and blood sugar control 6. Monitor labs 7. Awaiting cultures 8. GI and DVT prophylaxis Discharge Plan: Home Plan to discharge in: Greater than 2 days - Advance Directives Does patient have a Living Will: Yes Does patient have a Durable POA for Healthcare: Yes - Code Status/Comfort Care Code Status Assessed: Yes Code Status: Do Not Attempt Resuscitat Critical Care: No Time Spent Managing PTS Care (In Minutes): 35
[2021-09-29] MEDS ORDERED: MAGNESIUM HYDROXIDE 8% 30 ML PO PRN (15:13)
[2021-09-29] MEDS ORDERED: [UNRECOGNIZED DRUG - OTHER] TP SCH (15:15)
[2021-09-29] MEDS ORDERED: MENTHOL TP SCH (15:15)
[2021-09-29] MEDS ORDERED: CAMPHOR TP SCH (15:15)
[2021-09-29] MEDS ORDERED: CALCIUM CARBONATE CHEW 500MG TAB PO SCH (16:00)
[2021-09-29] MEDS ORDERED: MAGNESIUM HYDROXIDE 8% 30 ML PO ONE (16:30)
[2021-09-29] MEDS: ACETAMINOPHEN 325 MG TABLET PO PRN (17:52)
[2021-09-29] MEDS: [UNRECOGNIZED DRUG - OTHER] TOP SCH (18:00)
[2021-09-29] MEDS: METOPROLOL TAR 50 MG TAB PO SCH (21:08)
[2021-09-29] MEDS: TRAMADOL HCL 50 MG TAB PO SCH (21:08)
[2021-09-29] MEDS: DIVALPROEX ER 250 MG TAB PO SCH (21:09)
[2021-09-29] MEDS: ATORVASTATIN 40 MG TAB PO SCH (21:09)
[2021-09-29] MEDS: HYDRALAZINE HCL 25 MG TABLET PO SCH (21:09)
[2021-09-29] MEDS: OXYBUTYNIN CHLORIDE 5 MG TAB PO SCH (21:09)
[2021-09-29] MEDS: MELATONIN 5 MG TABLET PO SCH (21:10)
[2021-09-30 01:42] VITALS: O2SAT 98
[2021-09-30] MEDS: NA CHLORIDE 0.9% 1,000 ML IV SCH ×3 (03:06→23:06)
[2021-09-30] MEDS: ACETAMINOPHEN 325 MG TABLET PO PRN ×3 (05:41→22:44)
[2021-09-30] MEDS: Meropenem 1 GM/100 ML BAG IV SCH ×3 (05:42→20:52)
[2021-09-30] MEDS: PANTOPRAZOLE 40MG TABLET PO SCH (05:42)
[2021-09-30] MEDS: [UNRECOGNIZED DRUG - OTHER] TOP SCH ×2 (05:49→17:35)
[2021-09-30] MEDS: NIFEDIPINE XL 60 MG TABLET PO SCH (09:00)
[2021-09-30] MEDS: METOPROLOL TAR 50 MG TAB PO SCH ×2 (09:00→20:48)
[2021-09-30] MEDS: CALCIUM CARB 500MG/VIT D 200 IU TAB PO SCH (09:00)
[2021-09-30] MEDS: MAGNESIUM CHLORIDE 64 MG TAB PO SCH (10:25)
[2021-09-30] MEDS: ENOXAPARIN 40 MG/0.4 ML SQ SCH (10:25)
[2021-09-30] MEDS: FERROUS SULFATE 325 MG TAB PO SCH (10:26)
[2021-09-30] MEDS: TRAMADOL HCL 50 MG TAB PO SCH ×3 (10:26→20:46)
[2021-09-30] MEDS: ASPIRIN EC 81 MG TAB PO SCH (10:26)
[2021-09-30] MEDS: HYDRALAZINE HCL 25 MG TABLET PO SCH ×2 (10:26→20:45)
[2021-09-30] MEDS: DIVALPROEX ER 250 MG TAB PO SCH ×2 (10:27→20:46)
[2021-09-30] MEDS: DOCUSATE NA 100 MG CAP PO SCH (10:27)
[2021-09-30] MEDS: FINASTERIDE 5 MG TAB PO SCH (10:28)
[2021-09-30] MEDS: OXYBUTYNIN CHLORIDE 5 MG TAB PO SCH ×3 (10:28→20:45)
[2021-09-30] MEDS: TAMSULOSIN 0.4 MG SR CAP PO SCH (10:28)
[2021-09-30] MEDS: SERTRALINE HCL 50 MG TAB PO SCH (10:42)
--- NOTE | 2021-09-30 16:27 | P.PN ---
Subjective Date of Service: 09/30/21 Primary Care Provider: JONELLE Chief Complaint: UTI failed outpatient Subjective: Other (Patient stable. Patient with underlying dementia) Physical Examination - Vital Signs Temperature: 97.3 F Blood Pressure: 125/62 Pulse: 61 Respirations: 18 Pulse Ox (%): 98 - Studies Microbiology Data (last 24 hrs): 09/28/21 17:38 Blood - Blood Blood Culture Gram Stain - Final 09/28/21 17:38 Blood - Blood Gram Stain - Final Assessment & Plan Discharge Plan: [facility] Plan to discharge in: 48 Hours Physician Review Additional Text: COVID: Negative Physical exam: General: Demented, Confused Respiratory: Clear to auscultation bilaterally, Normal air movement Cardiovascular: Regular rate/rhythm, Normal S1 S2 Gastrointestinal: Normal bowel sounds, Soft and benign, Non-distended Musculoskeletal: No clubbing Neurological: Cranial nerves 3-12 intact, Abnormal gait, Abnormal strength, Abnormal sensation Impression: Toxic encephalopathy secondary to complicated UTI with history of chronic Wang catheter and history of resistant infection Hypertension Hyperlipidemia Diabetes mellitus type 2 insulin-dependent BPH Dementia Seizure disorder Sacral decubitus stage I BPH Plan: 1. Continue with IV hydration 2. Continue with IV antibiotics. Await culture results. 3. Continue with pain control 4. Diet as tolerated 5. Strict blood pressure and blood sugar control 6. Monitor labs 7. Awaiting cultures 8. GI and DVT prophylaxis CODE STATUS: DNR DVT prophylaxis: Lovenox Advance care [id number] minutes: Back to jail at discharge Time Spent Managing Pts Care (In Minutes): 55
[2021-09-30] MEDS: ATORVASTATIN 40 MG TAB PO SCH (20:48)
[2021-09-30] MEDS: MELATONIN 5 MG TABLET PO SCH (20:48)
[2021-10-01 04:36] LABS: Absolute Lymphocytes (CBC) 1.4 K/uL (0.7-4.9); Hematocrit 28.7 % (39.6-49.0); Lymphocytes % 29.2 % (15.3-44.8); MPV 7.4 fL (7.6-11.3); RBC Red Blood Cell Count 3.38 M/uL (4.33-5.43)
[2021-10-01 04:45] LABS: BUN Blood Urea Nitrogen 14 mg/dL (7-18); Bicarbonate 27 mmol/L (21-32); Glucose Level 76 mg/dL (74-106); Magnesium 1.9 mg/dL (1.8-2.4); Potassium 3.8 mmol/L (3.5-5.1); Sodium Level 142 mmol/L (136-145)
[2021-10-01] MEDS: Meropenem 1 GM/100 ML BAG IV SCH ×2 (06:00→21:00)
[2021-10-01] MEDS: [UNRECOGNIZED DRUG - OTHER] TOP SCH ×2 (06:00→18:00)
--- NOTE | 2021-10-01 06:20 | P.PN ---
Subjective Date of Service: 10/01/21 Primary Care Provider: JONELLE Chief Complaint: UTI failed outpatient Subjective: Other (Overall stable. Patient patient with dementia but responds appropriately.) Physical Examination - Vital Signs Temperature: 97.4 F Blood Pressure: 130/74 Pulse: 60 Respirations: 18 Pulse Ox (%): 92 - Studies Microbiology Data (last 24 hrs): 09/28/21 17:38 Blood - Blood Blood Culture Gram Stain - Final 09/28/21 17:38 Blood - Blood Gram Stain - Final Assessment & Plan Discharge Plan: Care Home Plan to discharge in: 24 Hours Physician Review Additional Text: COVID: Negative Physical exam: General: Patient with dementia. Patient appears to be at his baseline level. Respiratory: Clear to auscultation bilaterally, Normal air movement Cardiovascular: Regular rate/rhythm, Normal S1 S2 Gastrointestinal: Normal bowel sounds, Soft and benign, Non-distended Musculoskeletal: No clubbing Neurological: Patient appears bedbound Impression: Toxic encephalopathy secondary to complicated UTI with history of chronic Wang catheter and history of resistant infection now with urine culture positive for ESBL Hypertension Hyperlipidemia Diabetes mellitus type 2 insulin-dependent BPH Dementia Seizure disorder Sacral decubitus stage I BPH Depression Anemia chronic disease with iron deficiency Plan: Toxic encephalopathy secondary to complicated UTI with history of chronic Wang catheter and history of resistant infection now with urine culture positive for ESBL: PICC line ordered. Continue IV meropenem. Continue IV meropenem for total of 7 days. Currently on day 3. Patient on IV meropenem 1 g twice daily. Discontinue IV fluids. Patient with chronic Wang catheter. This will need to be changed every month. Patient also takes oxybutynin 5 mg 3 times a day. Recheck urine culture. Will discuss with social work case manager about arranging going back to the longterm with IV antibiotic therapy. Hypertension: Overall stable. Continue hydralazine 25 mg 1 pill twice daily, metoprolol 50 mg 1 pill twice daily, and nifedipine XL 60 mg daily. Hyperlipidemia: Continue Lipitor 40 mg daily BPH: Continue Flomax 0.4 mg daily and Proscar 5 mg daily Dementia: Overall stable. Patient appears to be at his baseline level. Continue Seizure disorder: Depakote 25 mg daily and 500 mg at bedtime Sacral decubitus stage I: Dressing changes. Wound care to evaluate and treat. Depression: Continue with Zoloft 50 mg daily Anemia of chronic disease with iron deficiency: Continue with iron supplementation daily. CODE STATUS: DNR DVT prophylaxis: Lovenox Advance care [id number] minutes: Back to longterm at discharge Time Spent Managing Pts Care (In Minutes): 55
[2021-10-01] MEDS: PANTOPRAZOLE 40MG TABLET PO SCH (06:30)
[2021-10-01] MEDS: ACETAMINOPHEN 325 MG TABLET PO PRN (06:42)
[2021-10-01] MEDS ORDERED: POTASSIUM CL SA 10 MEQ TAB PO ONE (08:15)
[2021-10-01] MEDS: ENOXAPARIN 40 MG/0.4 ML SQ SCH (08:55)
[2021-10-01] MEDS: MAGNESIUM CHLORIDE 64 MG TAB PO SCH (08:55)
[2021-10-01] MEDS: FERROUS SULFATE 325 MG TAB PO SCH (08:56)
[2021-10-01] MEDS: CALCIUM CARB 500MG/VIT D 200 IU TAB PO SCH (08:56)
[2021-10-01] MEDS: ASPIRIN EC 81 MG TAB PO SCH (08:56)
[2021-10-01] MEDS: TAMSULOSIN 0.4 MG SR CAP PO SCH (08:56)
[2021-10-01] MEDS: DOCUSATE NA 100 MG CAP PO SCH (08:56)
[2021-10-01] MEDS: TRAMADOL HCL 50 MG TAB PO SCH ×3 (08:57→22:10)
[2021-10-01] MEDS: DIVALPROEX ER 250 MG TAB PO SCH ×2 (08:57→22:09)
[2021-10-01] MEDS: FINASTERIDE 5 MG TAB PO SCH (08:57)
[2021-10-01] MEDS: OXYBUTYNIN CHLORIDE 5 MG TAB PO SCH ×3 (08:57→22:10)
[2021-10-01] MEDS: HYDRALAZINE HCL 25 MG TABLET PO SCH ×2 (08:58→22:08)
[2021-10-01] MEDS: SERTRALINE HCL 50 MG TAB PO SCH (08:58)
[2021-10-01] MEDS: NA CHLORIDE 0.9% 1,000 ML IV SCH (09:06)
[2021-10-01] MEDS: NIFEDIPINE XL 60 MG TABLET PO SCH (09:09)
[2021-10-01] MEDS: METOPROLOL TAR 50 MG TAB PO SCH ×2 (09:09→21:00)
[2021-10-01] MEDS: MELATONIN 5 MG TABLET PO SCH (22:09)
[2021-10-01] MEDS: ATORVASTATIN 40 MG TAB PO SCH (22:09)
[2021-10-02] MEDS: ACETAMINOPHEN 325 MG TABLET PO PRN (01:49)
[2021-10-02 04:05] LABS: Absolute Lymphocytes (CBC) 1.3 K/uL (0.7-4.9); Hematocrit 27.5 % (39.6-49.0); MPV 7.1 fL (7.6-11.3); RBC Red Blood Cell Count 3.24 M/uL (4.33-5.43)
[2021-10-02 04:13] LABS: BUN Blood Urea Nitrogen 15 mg/dL (7-18); Bicarbonate 26 mmol/L (21-32); Glucose Level 85 mg/dL (74-106); Magnesium 2.1 mg/dL (1.8-2.4); Potassium 3.8 mmol/L (3.5-5.1); Sodium Level 141 mmol/L (136-145)
[2021-10-02] MEDS: [UNRECOGNIZED DRUG - OTHER] TOP SCH (05:24)
--- NOTE | 2021-10-02 06:12 | P.PN ---
Subjective Date of Service: 10/02/21 Primary Care Provider: JONELLE Chief Complaint: UTI failed outpatient Subjective: Doing well Physical Examination - Vital Signs Temperature: 98.3 F Blood Pressure: 119/65 Pulse: 62 Respirations: 17 Pulse Ox (%): 96 - Studies Microbiology Data (last 24 hrs): 09/28/21 18:33 Clean Catch Urine [place] Count - Final >100,000 CFU/ML. 09/28/21 18:33 Clean Catch Urine - Final Escherichia Coli Esbl Gram Neg Brandin 09/28/21 17:38 Blood - Blood Aerobic Blood Culture - Final 09/28/21 17:38 Blood - Blood Blood Culture Gram Stain - Final 09/28/21 17:38 Blood - Blood Anaerobic Blood Culture - Final 09/28/21 17:38 Blood - Blood Gram Stain - Final Assessment & Plan [facility] Plan to discharge in: 24 Hours Physician Review Additional Text: COVID: Negative Physical exam: General: Patient with dementia. Patient appears to be at his baseline level. Respiratory: Clear to auscultation bilaterally, Normal air movement Cardiovascular: Regular rate/rhythm, Normal S1 S2 Gastrointestinal: Normal bowel sounds, Soft and benign, Non-distended Musculoskeletal: No clubbing Neurological: Patient appears bedbound Impression: Toxic encephalopathy secondary to complicated UTI with history of chronic Wang catheter and history of resistant infection now with urine culture positive for ESBL Hypertension Hyperlipidemia Diabetes mellitus type 2 insulin-dependent BPH Dementia Seizure disorder Sacral decubitus stage I BPH Depression Anemia chronic disease with iron deficiency Plan: Toxic encephalopathy secondary to complicated UTI with history of chronic Wang catheter and history of resistant infection now with urine culture positive for ESBL: PICC line ordered. This hopefully can be done today. Continue IV meropenem. Continue IV meropenem for total of 7 days. Currently on day 4. Patient on IV meropenem 1 g twice daily. Patient with chronic Wang catheter. This will need to be changed every month. Patient also takes oxybutynin 5 mg 3 times a day. Recheck urine culture. Possible [facility] the prison today with continued IV antibiotic therapy if PICC line can be arranged. Hypertension: Overall stable. Continue hydralazine 25 mg 1 pill twice daily, metoprolol 50 mg 1 pill twice daily, and nifedipine XL 60 mg daily. Hyperlipidemia: Continue Lipitor 40 mg daily BPH: Continue Flomax 0.4 mg daily and Proscar 5 mg daily Dementia: Overall stable. Patient appears to be at his baseline level. Continue Seizure disorder: Depakote 25 mg daily and 500 mg at bedtime Sacral decubitus stage I: Continue dressing changes. Wound care to evaluate and treat. Depression: Continue with Zoloft 50 mg daily Anemia of chronic disease with iron deficiency: Continue with iron supplementation daily. CODE STATUS: DNR DVT prophylaxis: Lovenox Advance care [id number] minutes: Back to prison at discharge Time Spent Managing Pts Care (In Minutes): 55
[2021-10-02] MEDS: PANTOPRAZOLE 40MG TABLET PO SCH (06:13)
[2021-10-02] MEDS ORDERED: POTASSIUM CL SA 10 MEQ TAB PO ONE (09:00)
[2021-10-02] MEDS: CALCIUM CARB 500MG/VIT D 200 IU TAB PO SCH (09:00)
[2021-10-02] MEDS: MAGNESIUM CHLORIDE 64 MG TAB PO SCH (09:48)
[2021-10-02] MEDS: METOPROLOL TAR 50 MG TAB PO SCH (09:49)
[2021-10-02] MEDS: NIFEDIPINE XL 60 MG TABLET PO SCH (09:50)
[2021-10-02] MEDS: ASPIRIN EC 81 MG TAB PO SCH (09:50)
[2021-10-02] MEDS: TAMSULOSIN 0.4 MG SR CAP PO SCH (09:50)
[2021-10-02] MEDS: ENOXAPARIN 40 MG/0.4 ML SQ SCH (09:50)
[2021-10-02] MEDS: SERTRALINE HCL 50 MG TAB PO SCH (09:50)
[2021-10-02] MEDS: TRAMADOL HCL 50 MG TAB PO SCH ×2 (09:51→14:19)
[2021-10-02] MEDS: FERROUS SULFATE 325 MG TAB PO SCH (09:52)
[2021-10-02] MEDS: HYDRALAZINE HCL 25 MG TABLET PO SCH (09:52)
[2021-10-02] MEDS: DOCUSATE NA 100 MG CAP PO SCH (09:52)
[2021-10-02] MEDS: OXYBUTYNIN CHLORIDE 5 MG TAB PO SCH ×2 (09:52→14:28)
[2021-10-02] MEDS: DIVALPROEX ER 250 MG TAB PO SCH (09:52)
[2021-10-02] MEDS: FINASTERIDE 5 MG TAB PO SCH (09:52)
--- NOTE | 2021-10-02 11:47 | RAD REPORT ---
EXAM DESCRIPTION: RAD - Chest Single View - 10/02/2021 11:36 am CLINICAL HISTORY: Device placement PICC line placement IMPRESSION: PICC line with its tip in the distal superior vena cava
[2021-10-02] MEDS: Meropenem 1 GM/100 ML BAG IV SCH (11:58)
[2021-10-02 12:24] VITALS: BP 101/58; TEMP 97
--- NOTE | 2021-10-02 13:04 | P.DS ---
Admission Date: 09/28/21 Discharge Date: 10/02/21 Primary Care Provider: JONELLE Disposition: TRANSFER TO [facility] Discharge Condition: GOOD Reason for Admission: UTI failed outpatient Consultations: None Procedures: COVID: Negative CXR: CLINICAL HISTORY: Device placement PICC line placement IMPRESSION: PICC line with its tip in the distal superior vena cava Medical Problem List: Toxic encephalopathy secondary to complicated UTI with history of chronic Parikh catheter and history of resistant infection now with urine culture positive for ESBL Hypertension Hyperlipidemia Diabetes mellitus type 2 insulin-dependent BPH Dementia Seizure disorder Sacral decubitus stage I BPH Depression Anemia chronic disease with iron deficiency Brief History of Present Illness: 65 yo CM with dementia, HLD, HTN, h/o strokes who is brought in from assisted for AMS. Upon arrival, he is AOx4. Reports mild pain in his lower abdomen. He has an indwelling parikh catheter due to recurrent UTIs. He recently has been taking Keflex. Patient's family doctor called today and asked for the patient to be hospitalized for IV antibiotic treatment for UTI. Do not have access to most recent cultures. CT Head without acute findings. Hospital Course: Patient presented with toxic encephalopathy secondary to complicated UTI with history of chronic Parikh catheter and history of resistant UTI infection. Patient was found to have E. coliESBL in the urine. Patient required PICC line for long-term treatment. Patient received IV meropenem. Patient currently on IV meropenem 1 g twice daily. Patient currently on day 4. Repeat urine cultures have been obtained. At discharge patient will return back to the assisted to continue IV meropenem 1 g twice daily. Patient will need to continue with medication for at least 2-3 more days. custodial will need to follow-up on urine culture to make sure urine culture shows resolution. If unremarkable then IV meropenem and PICC line can be removed. UTI prevention will need to be enforced. Will need to replace chronic Parikh catheter at least every month. Patient may continue with Ditropan 5 mg 1 pill 3 times a day. Patient with hypertension. Patient overall stable. At discharge patient will continue with aspirin 81 mg daily, hydralazine 25 mg 1 pill twice daily, metoprolol 50 mg 1 pill twice daily, and Procardia XL 60 mg daily. Recommend to maintain blood pressure less than 130/80. Further adjustment can be done at the assisted. Patient with hyperlipidemia. At discharge patient will continue with Lipitor 40 mg daily. Patient with history of dementia and seizure disorder. Dementia stable at this time. At discharge patient will continue with Depakote ER 250 mg daily and 500 mg at bedtime. Recommend to check Depakote level in 1 to 2 weeks to monitor his progress. Further adjustment in medication can be done by assisted. Patient with BPH. At discharge patient will continue with Proscar 5 mg daily and Flomax 0.4 mg daily. Patient with depression with anxiety. At discharge patient will continue with Zoloft 50 mg daily. Patient also takes melatonin 5 mg at bedtime. Patient with iron deficiency anemia. Overall stable. At discharge patient can continue with iron 325 mg 1 pill daily. Recommend to recheck CBC in 2 to 4 weeks to monitor his progress. Patient will continue with his other medications including Caltrate 1 pill daily and Tums 3 times a day. Patient with chronic constipation. At discharge patient can continue with docusate 100 mg daily. Patient takes Imodium as needed. Other chronic medications include tramadol as needed for pain. Slow-Mag 128 mg daily. Patient with GERD. At discharge patient may continue with Prilosec 10 mg daily. Advance care directives addressed in detail. Patient is DO NOT RESUSCITATE. Vital Signs/Physical Exam: Temp Pulse Resp BP Pulse Ox 97.0 F 60 16 101/58 L 97 10/02/21 12:00 10/02/21 12:00 10/02/21 12:00 10/02/21 12:00 10/02/21 12:00 General: Alert, In no apparent distress, Cooperative, Demented HEENT: Atraumatic Neck: Supple Respiratory: Clear to auscultation bilaterally, Normal air movement Cardiovascular: Normal pulses, Regular rate/rhythm Gastrointestinal: Normal bowel sounds, No ascites Musculoskeletal: No erythema, No tenderness, No warmth Integumentary: No tenderness/swelling, No erythema, No warmth, No cyanosis Neurological: Normal speech, Normal strength at 5/5 x4 extr, Normal tone, Dementia Laboratory Data at Discharge: WBC 5.70 K/uL (4.3-10.9) D 10/02/21 03:16 Hgb 9.5 g/dL (13.6-17.9) L 10/02/21 03:16 Hct 27.5 % (39.6-49.0) L 10/02/21 03:16 Plt Count 233 K/uL (152-406) 10/02/21 03:16 Sodium 141 mmol/L (136-145) 10/02/21 03:16 Potassium 3.8 mmol/L (3.5-5.1) 10/02/21 03:16 BUN 15 mg/dL (7-18) 10/02/21 03:16 Creatinine 0.49 mg/dL (0.55-1.3) L 10/02/21 03:16 Glucose 85 mg/dL (74-106) 10/02/21 03:16 Phosphorus 4.2 mg/dL (2.5-4.9) 09/29/21 05:42 Magnesium 2.1 mg/dL (1.8-2.4) 10/02/21 03:16 Total Bilirubin 0.7 mg/dL (0.2-1.0) 09/29/21 05:42 AST 18 U/L (15-37) 09/29/21 05:42 ALT 20 U/L (12-78) 09/29/21 05:42 Alkaline Phosphatase 82 U/L (45-117) 09/29/21 05:42 Triglycerides 103 mg/dL (<150) 09/29/21 05:42 Cholesterol 100 mg/dL (<200) 09/29/21 05:42 HDL Cholesterol 32 mg/dL (40-60) L 09/29/21 05:42 Cholesterol/HDL Ratio 3.13 09/29/21 05:42 Home Medications: Aspirin [Low Dose Aspirin EC] 81 mg PO DAILY 09/13/20 Divalproex ER [Depakote *ER] 250 mg PO DAILY 09/13/20 Docusate [Colace Cap*] 100 mg PO DAILY 09/13/20 Melatonin 5 mg PO BEDTIME 09/13/20 Nifedipine Xl [Procardia XL*] 60 mg PO DAILY 09/13/20 traMADol HCL [Ultram*] 50 mg PO TID 09/13/20 Acetaminophen [Tylenol] 650 mg PO Q6HP PRN 09/22/20 Atorvastatin Calcium [Lipitor*] 40 mg PO BEDTIME 09/22/20 Divalproex ER [Depakote *ER] 500 mg PO BEDTIME 09/22/20 Omeprazole 10 mg PO DAILY 09/22/20 Oxybutynin Chloride [Ditropan*] 5 mg PO TID 09/22/20 Hydralazine [Apresoline*] 25 mg PO BID 12/15/20 Magnesium Chloride 2 tab PO DAILY 30 Days #60 tab 12/15/20 Metoprolol Tartrate [Lopressor*] 50 mg PO BID 12/15/20 Calcium Carbonate [Tums Regular*] 1,000 mg PO TIDP PRN #0 tab 12/20/20 Loperamide [Imodium*] 2 mg PO Q8H PRN cap 12/20/20 Calcium Carbonate/Vitamin D3 [Calcium 600-Vit D3 400 Tablet] 1 each PO DAILY 07/27/21 Ferrous Sulfate [Ferrous Sulfate*] 325 mg PO DAILY 07/27/21 Finasteride [Proscar] 5 mg PO DAILY 07/27/21 Sertraline [Zoloft*] 50 mg PO DAILY 07/27/21 Tamsulosin HCl [Flomax] 0.4 mg PO DAILY 07/27/21 Menthol/Camphor [Biofreeze with Ilex Gel] 120 gm TP Q12H 09/28/21 Physician Discharge Instructions: Patient presented with toxic encephalopathy secondary to complicated UTI with history of chronic Parikh catheter and history of resistant UTI infection. Patient was found to have E. coliESBL in the urine. Patient required PICC line for long-term treatment. Patient received IV meropenem. Patient currently on IV meropenem 1 g twice daily. Patient currently on day 4. Repeat urine cultures have been obtained. At discharge patient will return back to the assisted to continue IV meropenem 1 g twice daily. Patient will need to continue with medication for at least 2-3 more days. custodial will need to follow-up on urine culture to make sure urine culture shows resolution. If unremarkable then IV meropenem and PICC line can be removed. UTI prevention will need to be enforced. Will need to replace chronic Parikh catheter at least every month. Patient may continue with Ditropan 5 mg 1 pill 3 times a day. Patient with hypertension. Patient overall stable. At discharge patient will continue with aspirin 81 mg daily, hydralazine 25 mg 1 pill twice daily, metoprolol 50 mg 1 pill twice daily, and Procardia XL 60 mg daily. Recommend to maintain blood pressure less than 130/80. Further adjustment can be done at the assisted. Patient with hyperlipidemia. At discharge patient will continue with Lipitor 40 mg daily. Patient with history of dementia and seizure disorder. Dementia stable at this time. At discharge patient will continue with Depakote ER 250 mg daily and 500 mg at bedtime. Recommend to check Depakote level in 1 to 2 weeks to monitor his progress. Further adjustment in medication can be done by assisted. Patient with BPH. At discharge patient will continue with Proscar 5 mg daily and Flomax 0.4 mg daily. Patient with depression with anxiety. At discharge patient will continue with Zoloft 50 mg daily. Patient also takes melatonin 5 mg at bedtime. Patient with iron deficiency anemia. Overall stable. At discharge patient can continue with iron 325 mg 1 pill daily. Recommend to recheck CBC in 2 to 4 weeks to monitor his progress. Patient will continue with his other medications including Caltrate 1 pill daily and Tums 3 times a day. Patient with chronic constipation. At discharge patient can continue with docusate 100 mg daily. Patient takes Imodium as needed. Other chronic medications include tramadol as needed for pain. Slow-Mag 128 mg daily. Patient with GERD. At discharge patient may continue with Prilosec 10 mg daily. Advance care directives addressed in detail. Patient is DO NOT RESUSCITATE. Diet: AHA Activity: Fall precautions Followup: NONE,NONE [Primary Care Provider] - Time spent managing pt's care (in minutes): 55
== END 2021-10-02 15:15 | DRG 698 ==
LOC: ER 16:32 → ERHOLD 19:36 → 4TH 22:09
PROVIDERS: ADMIT Hospitalist; ATTEND Family Medicine
PROC: 02HV33Z Insertion of Infusion Device into Superior Vena Cava, Percutaneous Approach (ICD-10-PCS; principal; 2021-10-02)
DX: T83.518A Infection and inflammatory reaction due to other urinary catheter, initial encounter (principal); G92.9 Unspecified toxic encephalopathy; N30.01 Acute cystitis with hematuria; Z16.12 Extended spectrum beta lactamase (ESBL) resistance; Z16.24 Resistance to multiple antibiotics; E78.5 Hyperlipidemia, unspecified; M25.562 Pain in left knee; L89.151 Pressure ulcer of sacral region, stage 1; G40.909 Epilepsy, unspecified, not intractable, without status epilepticus; F03.90 Unspecified dementia, unspecified severity, without behavioral disturbance, psychotic disturbance, mood disturbance, and anxiety; E11.9 Type 2 diabetes mellitus without complications; K21.9 Gastro-esophageal reflux disease without esophagitis; N40.1 Benign prostatic hyperplasia with lower urinary tract symptoms; R39.16 Straining to void; F41.8 Other specified anxiety disorders; K59.09 Other constipation; D50.9 Iron deficiency anemia, unspecified; I10 Essential (primary) hypertension; I25.2 Old myocardial infarction; Z66 Do not resuscitate; Z86.73 Personal history of transient ischemic attack (TIA), and cerebral infarction without residual deficits; Z56.0 Unemployment, unspecified; Z90.49 Acquired absence of other specified parts of digestive tract; Z79.82 Long term (current) use of aspirin; Z79.899 Other long term (current) drug therapy; Z79.4 Long term (current) use of insulin; Z20.822 Contact with and (suspected) exposure to COVID-19
CPT/HCPCS: 36415; 36569; 51702; 70450; 71045; 74177; 80048; 80053; 80061; 81003; 81015; 82565; 83605; 83735; 84100; 84145; 84439; 84443; 85025; 87040; 87077; 87086; 87088; 87186; 87205; 99284; J1650; J2185; J7030; Q9967; U0003

== ENCOUNTER 2021-10-23 10:12 | Emergency (ER) | payer OTHER ==
--- OUTSIDE RECORDS SUMMARY | 2021-10-23 10:17 | XMS REPORT | Continuity of Care Document ---
:1955 Author Organization [facility] t Address [address] [place] [address] [address] [place] [address] Care Team Providers Name Role Phone JESSE MERAZ Attending Clinician Unavailable KNOW Attending Clinician Unavailable Osei Cuevas Attending Clinician Bryant ZAZUETA Attending Clinician Giselle ZAZUETA Attending Clinician Osei CLAROS Attending Clinician Unavailable JESSE MERAZ Admitting Clinician Unavailable KNOW Admitting Clinician Unavailable Bryant ZAZUETA Admitting Clinician Payers Payer Name Policy Type Policy Number Effective Date Expiration Date S laurent [facility] COMM STAR PLAN [id number] Problems Condition Condition Condition Status Onset Resolution Last Treating Co mments Source Name Details Category Date Date Treatment Clinician Date Complicate Complicate Disease Active U nivers d UTI d UTI 1-21 ity of (urinary (urinary 00:00: [place] tract tract 00 Medical infection) infection) Br anch Obesity Obesity Disease Active 2015-10 Univers (BMI (BMI 2-20 ity of 30-39.9) 30-39.9) 00:00: [address] Stroke Stroke Disease Active 2015-10 Univers 2-20 ity of 00:00: [address] Left arm Left arm Disease Active 2015-10 Unive rs weakness weakness 2-19 ity of 00:00: [address] Allergies, Adverse Reactions, Alerts Allergy Allergy Status Severity Reaction(s) Onset Inactive Treating Comm ents Source Name Type Date Date Clinician NO KNOWN Allergy Active [facility] NO KNOWN Drug Active [facility] ALLERG Class ity of S [facility] Social History Social Habit Start Date Stop Date Quantity Comments Source Sex Assigned At Universit y of [facility] Exposure to Not sure University of SARS-CoV-2 (event) [facility] History of tobacco Cigarette Smoker University of use [place] [facility] History SDOH 2020-11-15 2020-11-15 4 University o f Financial 00:00:00 00:00:00 [place] [facility] History SDOH Food 2020-11-15 2020-11-15 1 Univers ity of Worry 00:00:00 00:00:00 [place] [facility] History SDOH Food 2020-11-15 2020-11-15 1 Univers ity of Scarcity 00:00:00 00:00:00 [place] [facility] History SDOH 2020-11-15 2020-11-15 2 University o f Transport Med 00:00:00 00:00:[address] [facility] al Branch History NVOH 2020-11-15 2020-11-15 2 [place] o f Transport Non-Med 00:00:00 00:00:00 [facility] Cigarettes smoked 2020-11-15 2020-11-15 Univers ity of current (pack per 00:00:00 00:00:[address] [facility] ) - Reported Branch Cigarette 2020-11-15 2020-11-15 University of pack-years 00:00:00 00:00:00 [facility] Tobacco use and 2020-11-15 2020-11-15 Never used Universit y of exposure 00:00:00 00:00:00 [facility] Alcohol intake 2020-11-15 2020-11-15 Current drinker Unive rsity of 00:00:00 00:00:00 of alcohol [facility] (finding) Bernice Smoking Status Start Date Stop Date Source Former smoker 2020-11-15 00:00:00 2020-11-15 00:00:00 Universi ty of [facility] Medications Ordered Filled Start Stop Current [...] 24 Medical (twenty-fo Branch ur) hours. divalproex 2021-0 Yes 500mg Take 500 Un osmar 500 mg EC 1-25 mg by ity of tablet 21:24: mouth at [place] [address] bedtime. Medical Branch hydrALAZINE 0 Yes 25mg Take 25 mg Univers 25 mg 1-25 by mouth 2 ity of tablet 21:24: (two) [place] [address] times Medical daily as Branch needed (SBP >170 and/or DBP >100). lisinopriL 0 Yes 20mg Take 20 mg U nivers 20 mg 1-25 by mouth ity of tablet 21:24: daily. [place] [address] Medical Branch Melatonin 5 2020-0 Yes 5mg Take 5 mg U nivers mg Cap 1-25 by mouth ity of 21:24: at [place] [address] bedtime. Medical Branch metoprolol Yes 50mg Take 50 mg U nivers tartrate 1-25 by mouth 2 ity o f (LOPRESSOR) 21:24: (two) [place] 50 mg 51 times Medical tablet daily. Branch NIFEdipine Yes 60mg Take 60 mg U nivers ER 60 mg 1-25 by mouth 2 ity o f tablet 21:24: (two) [place] [address] times Medical daily. Branch omeprazole 0 Yes 20mg Take 20 mg U nivers 20 mg 1-25 by mouth ity of capsule 21:24: daily. [place] [address] Medical Branch oxybutynin 0 Yes 5mg Take 5 mg Un osmar chloride 5 1-25 by mouth 3 ity of mg tablet 21:24: (three) [place] [address] times Medical daily. Branch linaGLIPtin 0 Yes 5mg Take 5 mg U nivers (TRADJENTA) 1-25 by mouth ity of 5 mg tablet 21:24: [place]. [place] traMADoL 50 0 Yes 50mg Take 50 mg Univers mg tablet 1-25 by mouth 2 ity of 21:24: (two) [place] [address] times Medical daily. Branch ascorbic 2020-0 Yes 500mg Take 500 Univ ers acid, 1-25 mg by ity of vitamin C, 21:24: mouth [place] (VITAMIN C) 51 daily. Medica l 500 mg Branch tablet Zinc 0 Yes 220mg Take 220 Univers Sulfate 220 1-25 mg by ity of mg Tab 21:24: mouth [place] [address] daily. Medical Branch traMADoL 2020-0 2021- No 50mg 50 mg, Univer s (ULTRAM) 11-17- Oral, ity of tablet 50 15:32: 15:31 Q8HPRN, [place] mg 42 :42 Starting Medical [facility] 11/17/20 at 0932, Until 11/19/20 at 0931, Routine, Pain (scale 4-6) cefTRIAXone Yes 1000mg 1,000 mg, Univers (ROCEPHIN) 11-17 IV ity of 1,000 mg in 15:30: Piggyback, [place] NaCl 0.9% 00 Q24H ABX, Medic al (NS) 50 mL First dose [facility] MINI-BAG on [facility] 11/17/20 at 0930, Until Discontinu ed, 50 mL
R willa for Anti-Infec tive: Empiric Therapy for Suspected Infection< br>Empiric Therapy Site: Urine
D uration of therapy: 72 hours zinc Yes 220mg 220 mg, Univers sulfate 11-17 Oral, ity of (ORAZINC) 15:00: DAILY, [place] capsule 220 00 First dose Me dical mg on [facility] 11/17/20 at 0900, Until Discontinu ed omeprazole Yes 20mg 20 mg, Unive rs (PRILOSEC) 11-17 Oral, ity of capsule 20 15:00: DAILY, [place] mg 00 First dose Medical on [facility] 11/17/20 at 0900, Until Discontinu ed, Routine docusate Yes 100mg 100 mg, Unive rs (COLACE) 11-17 Oral, ity of capsule 100 15:00: DAILY, [place] mg 00 First dose Medical on [facility] 11/17/20 at 0900, Until Discontinu ed, Routine aspirin Yes 81mg 81 mg, Univers chewable 11-17 Oral, ity of tablet 81 15:00: DAILY, [place] mg 00 First dose Medical on [facility] 11/17/20 at 0900, Until Discontinu ed, Routine ascorbic Yes 500mg 500 mg, Unive rs acid 11-17 Oral, ity of (vitamin C) 15:00: DAILY, [place] (VITAMIN C) 00 First dose Me dical tablet 500 on [facility] 11/17/20 at 0900, Until Discontinu ed, Routine melatonin 2021-0 Yes 6mg 6 mg, Univers (MELATIN) 1-23 Oral, QHS, ity of tablet 6 mg 03:00: First dose [place] 00 on Thu [facility] 11/16/20 at Branch 2100, Until Discontinu ed divalproex 2021-0 Yes 500mg 500 mg, Uni vers (DEPAKOTE) 1-23 Oral, QHS, ity of EC tablet 03:00: [place] 500 mg 00 on Thu Medical 11/16/20 at Branch 2100, Until Discontinu ed, Routine NIFEdipine 202-0 Yes 60mg 60 mg, Unive rs ER tablet -23 Oral, BID, ity of 60 mg 02:00: First dose 00 on Thu [facility] 11/16/20 at Branch 2000, Until Discontinu ed, Routine atorvastati 202-0 Yes 20mg 20 mg, Univ ers n (LIPITOR) - Oral, QPM, it y of tablet 20 23:00: [place] dose [place] mg 00 on Thu [facility] 11/16/20 at Branch 1700, Until Discontinu ed, Routine oxybutynin 2020-0 Yes 5mg 5 mg, Univer s chloride - Oral, TID, ity o f (DITROPAN) 20:00: First dose [place] tablet 5 mg 00 on Thu Medica l 11/16/20 at Branch 1400, Until Discontinu ed, Routine divalproex 2021-0 Yes 250mg 250 mg, Uni vers ER - Oral, ity of (DEPAKOTE 18:30: Q24H, [place] ER) 24 hr 00 First dose Medi jadiel tablet 250 on Fri Branch 11/16/20 at 1230, Until Discontinu ed, Routine metoprolol 2021-0 Yes 50mg 50 mg, Unive rs tartrate 1-22 Oral, BID, ity o f (LOPRESSOR) 17:30: First dose [place] tablet 50 00 (after Medical mg last Branch modificati on) on Thu11/16/20 at 1130, Until Discontinu ed, Routine lisinopriL 2021-0 Yes 20mg 20 mg, Unive rs (PRINIVIL,Z 1-22 Oral, ity of ESTRIL) 17:30: DAILY, [place] tablet 20 00 First dose Medi jadiel mg (after Branch last modificati on) on Thu11/16/20 at 1130, Until Discontinu ed, Routine NAPROXEN 2020- No Take by [facility] ers ORAL 11-16 mouth. ity of 17:27: 00:00 [place] 32 :00 [facility] Branch hydrALAZINE Yes 25mg 25 mg, [facility] ers (APRESOLINE 11-16 Oral, ity of ) tablet 25 17:25: BIDPRN, [place] mg [address] [facility] 11/16/20 at 1125, Until Discontinu ed, Routine, SBP >170 and/or DBP >100 enoxaparin Yes 40mg 40 mg, [facility] rs (LOVENOX) 11-15 Subcutaneo ity of injection 23:00: [place], [place]ILY, [place] 40 mg 00 First dose Medical on [facility] Branch 11/15/20 at 1700, Until Discontinu ed, Routine docusate 2020- No 100mg 100 mg, [facility] ers (COLACE) 11-15 Oral, ity of capsule 100 15:00: 17:28 DAILY, [place] mg 00 :05 First dose Medical on [facility] Branch 11/15/20 at 0900, Until Discontinu ed, Routine Polyethylen No 17g 17 g, [facility] e Glycol 11-15 Oral, ity of 3350 15:00: 15:13 DAILY, 1 [place] (MIRALAX) 00 :00 dose, Medical powder 17 g First dose Br anch on [facility] 11/15/20 at 0900, Routine piperacilli 2020- No 3.375g 3.375 g, Univers n-tazobacta 11-15 IV ity of m (ZOSYN) 14:00: 14:15 [place]back, [place] 3.375 g in 00 :39 Q6H ABX, Medic al NaCl 0.9% First dose Bran ch (NS) 100 mL (after MINI-BAG last reorder) on [facility] 11/15/20 at 0800, Until Discontinu ed, [...] 500mL at 999 Unive rs (NS) IV 11-15 mL/hr, IV ity of infusion 12:32: Infusion, [place] 500 mL 33 PRN - SEE Medical INSTRUCTIO Branch NS, 1 dose, Starting [place] 11/15/20 at 0632, Until Discontinu ed, Routine Polyethylen Yes 17g 17 g, Unive rs e Glycol 11-15 Oral, ity of 3350 10:47: T74CHBY, [place] (MIRALAX) 45 Starting Medica l powder 17 [...] IV ity of (D50W) 10:42: Push, PRN, [place] injection 36 Starting Medica l 25 mL [...] 11-15 Oral, ity of (TYLENOL) 10:42: Q6HPRN, [place] tablet 650 06 Starting Medic al mg Claudine Bernice 11/15/20 at 0442, Until Discontinu ed, Routine, Pain (scale 1-3) piperacilli 2020- No 3.375g 3.375 g, Univers n-tazobacta 11-15 IV ity of m (ZOSYN) 08:15: 07:54 [place]back, [place] 3.375 g in 00 :00 ONCE, 1 Medica l NaCl 0.9% dose, [facility] Branc h (NS) 100 mL 11/15/20 at MINI-BAG 0215, 100 mL
Reas on for Anti-Infec tive: Documented Infection< br>Documen arnoldo Infection Site: Abdominal< br>Duratio n of Therapy: Other (see Comments) ondansetron 2020- No 4mg 4 mg, Slow Univers (ZOFRAN 11-15 IV Push, ity of (PF)) 07:30: 06:38 ONCE, 1 [place] injection 4 00 :00 dose, [place]ine Med [...] 2,000 mL 00 :00 IV Medical Infusion, [place] ONCE, 1 dose, [place] 11/15/20 at 0115, TONI NaCl 0.9% 2020- No 1000mL at 999 Uni vers (NS) bolus 11-15 mL/hr, ity of infusion 06:30: 09:07 1,000 mL, [place] 1,000 mL 00 :00 IV Medical Infusion, [place] ONCE, 1 dose, [place] 11/15/20 at 0030, [...] 10mg Take 1 Uni vers mg tablet 12-17- tablet by ity of 00:00: 00:00 mouth 3 [place] 00 :00 (three) Medical times Branch daily. Vital Signs Vital Name Observation Time Observation Value Comments Source WEIGHT 2020-08-07 06:00:00 117 kg WEIGHT 2020-08-06 06:00:00 117.4 kg HEIGHT 2020-08-05 12:30:00 170.2 cm WEIGHT 2020-08-05 12:30:00 121.74 kg Systolic blood 2020-11-19 17:26:00 126 mm[Hg] Univer sity of pressure [facility] Diastolic blood 2020-11-19 17:26:00 71 mm[Hg] Unive rsity of pressure [facility] Heart rate 2020-11-19 17:26:00 60 /min [facility] Body temperature 2020-11-19 17:26:00 36.11 Tanika [facility] Respiratory rate 2020-11-19 17:26:00 18 /min [facility] Oxygen saturation in 2020-11-19 17:26:00 95 /min [facility] Arterial blood by [facility] Pulse oximetry Branch Body weight 2020-11-19 09:42:00 107.457 kg [facility] BMI 2020-11-19 09:42:00 33.99 kg/m2 [facility] Body height 2020-11-15 10:45:00 177.8 cm [facility] WEIGHT 2020-08-07 06:00:00 117 kg WEIGHT 2020-08-06 06:00:00 117.4 kg HEIGHT 2020-08-05 12:30:00 170.2 cm WEIGHT 2020-08-05 12:30:00 121.74 kg Procedures Procedure Date / Time Performing Clinician Source Performed CBC WITH DIFF 2020-11-19 11:39:00 Bryant [facility] BASIC METABOLIC PANEL (NA, 2020-11-19 09:39:00 [facility] [place] [facility] K, CL, CO2, GLUCOSE, BUN, Medica l Branch CREATININE, CA) BASIC METABOLIC PANEL (NA, 2020-11-18 09:29:00 Edionwe, [facility] K, CL, CO2, GLUCOSE, BUN, Medica l Branch CREATININE, CA) CBC WITH DIFF 2020-11-18 09:29:00 Bryant [facility] LACTIC ACID WHOLE BLOOD 2020-11-18 09:29:00 [facility]OL[facility] PAN[facility] (NA, 2020-11-17 10:43:00 Edionnestor, [facility] K, CL, CO2, GLUCOSE, BUN, Medica l Branch CREATININE, CA) CBC WITH DIFF 2020-11-17 10:43:00 Bryant [facility] POCT GLUCOSE (AUTOMATED) 2020-11-16 22:33:00 Bryant [facility] POCT GLUCOSE (AUTOMATED) 2020-11-16 17:20:00 Deborah Hurtado [facility] US RETROPERITONEAL LIMITED 2020-11-16 15:34:20 Maury Desai [facility] POCT GLUCOSE (AUTOMATED) 2020-11-16 13:27:00 [facility] BASIC METABOLIC PANEL (NA, 2020-11-16 09:19:00 Edionnestor, [facility] K, CL, CO2, GLUCOSE, BUN, Medica l Branch CREATININE, CA) CBC WITH DIFF 2020-11-16 09:19:00 Bryant [facility] GLYCOSYLATED HEMOGLOBIN 2020-11-16 09:19:00 Mell Hernandez [facility] (A1C) [facility] POCT GLUCOSE (AUTOMATED) 2020-11-15 22:57:00 BryantRamirezbelen [facility] POCT GLUCOSE (AUTOMATED) 2020-11-15 17:37:00 Bryant Ramirezbelen [facility] POCT GLUCOSE (AUTOMATED) 2020-11-15 13:52:00 Bryant Ramirezbelen [facility] LACTIC ACID WHOLE BLOOD 2020-11-15 11:04:00 Jessica Enamorado [facility] CT ABDOMEN PELVIS WO 2020-11-15 07:18:39 Sharon Claros [facility] CONTRAST [facility] BLOOD CULTURE SCREEN 2020-11-15 06:36:00 Sharon Claros [facility] URINALYSIS 2020-11-15 06:36:00 Jessica Enamorado [facility] URINE CULTURE 2020-11-15 06:36:00 Jessica Enamorado [facility] COVID-19 (ID NOW RAPID 2020-11-15 06:36:00 Jessica Enamorado [facility] TESTING) [facility] LAB ONLY COVID 2020-11-15 06:36:00 Jessica Enamorado [facility] INTERPRETATION [facility] COMP. METABOLIC PANEL 2020-11-15 06:33:00 Jessica Enamorado [facility] ([id number]) [facility] CBC WITH DIFF 2020-11-15 06:33:00 Jessica Enamorado [facility] LACTIC ACID WHOLE BLOOD 2020-11-15 06:32:00 Jessica Enamorado [facility] Encounters Start End Encounter Admission Attending Care Care Encounter Source Date/Time Date/Time Type Type Clinicians Facility Department ID 2020-08-05 Inpatient ER DEONDRE MERAZ Cardiac ICU [id number] SLE 11:54:00 BONITA 2021-01-07 2021-01-07 Outpatient KNOW, LYDIABM OPLA [id number] [facility] 02:05:00 02:05:00 DOES_NOT [id number] [facility] 2020-11-15 2020-11-19 [facility] Sharon Claros [facility] [id number] Univers 00:08:00 15:21:00 Encounter Deborah Hurtado [id number] ity of Maury Desai [id number] [facility] [id number] [facility] 081 Branch 2020-11-15 2020-11-15 Emergency X CLAROS, [facility] ERT [id number] Univers 00:08:00 00:08:00 [facility] 2020-[facility]01 2020-11-01 Outpatient KNOW, [facility] OPLA [id number] [facility] 09:19:00 09:19:00 DOES_NOT [id number] [facility] Results Test Description Test Time Test Comments Results Result Comments Source BASIC METABOLIC PANEL 2021-01-07 02:45:00 Test Item Value Reference Range Interpretation Comme nts SODIUM (test code = NA) 138 mmol/L 136-145 N POTASSIUM (test code = K) 4.8 mmol/L 3.5-5.1 N CHLORIDE (test code = CL) 106.0 mmol/L 98-107 N CARBON DIOXIDE (test code = 25.0 mmol/L 21-32 N CO2) ANION GAP (test code = GAP) 11.8 10-20 N GLUCOSE (test code = GLU) 120 mg/dL 74-106 H BLOOD UREA NITROGEN (test 37 mg/dL 7-18 H code = BUN) GLOMERULAR FILTRATION RATE 44 mL/min See_Comment E stimated GFR by using (test code = GFR) Modified M DRD formula.Chronic kidney disease is defined as either kidney d amageor GFR <60 mL/min/1.73 m2 for >3 months. [Automa arnoldo message] The system [employer] generated this result tra nsmitted reference range : >=60. The reference range was not used to interpret th is result as normal/abnormal . CREATININE (test code = 1.60 mg/dL 0.7-1.3 H CREAT) BUN/CREATININE RATIO (test 23.4 10-20 H code = BUN/CREA) CALCIUM (test code = CA) 8.3 mg/dL 8.5-10.1 L CBC with [id number] 12:32:00 Test Item Value Reference Range Interpretation Comments [...] fL 81.7-95.6 787-2) MCH (test code = 29.1 pg 26.1-32.7 785-6) MCHC (test code = 34.4 g/dL 31.2-35 786-4) RDW-SD (test code = 46.9 fL 38.5-51.6 77212-9) RDW-CV (test code = 15.2 % 12.1-15.4 788-0) PLT (test code = See_Comment [Automated 777-3) message] The sy stem which generated this result transmitted reference range : 150 - 328 10*3/ ?L. The reference r alanna was not used to interpret this result as normal/abnormal . MPV (test code = 9.9 fL 9.8-13 47281-3) NRBC/100 WBC (test See_Comment [Automat ed code = 8455597398) message] The system which generated this result transmitted reference range : 0.0 - 10.0 /100 WBCs. The refer ence range was not u sed to interpret th is result as normal/abnormal . NRBC x10^3 (test code <0.01 See_Comment [Auto mated = 7878070964) message] The s ystem which generated this result transmitted reference range : 10*3/?L. The reference range was not used to interpret this result as normal/abnormal . GRAN MAT (NEUT) % 61.2 % (test code = 770-8) IMM GRAN % (test code 0.30 % = 7565089655) LYMPH % (test code = 21.4 % 736-9) MONO % (test code = 12.2 % 5905-5) EOS % (test code = 4.3 % 713-8) BASO % (test code = 0.6 % 706-2) GRAN MAT x10^3(ANC) 3.79 10*3/uL 1.99-6.95 (test code = 5791947714) IMM GRAN x10^3 (test <0.03 0-0.06 code = 2548431946) LYMPH x10^3 (test code 1.33 10*3/uL 1.09-3.23 = 731-0) MONO x10^3 (test code 0.76 10*3/uL 0.36-1.02 = 742-7) EOS x10^3 (test code = 0.27 10*3/uL 0.06-0.53 711-2) BASO x10^3 (test code 0.04 10*3/uL 0.01-0.09 = 704-7) Lab Interpretation Abnormal (test code = 12826-1) [facility] Met[facility] (NA, K, CL, CO2, GLUCOSE, BUN, CREATININE, CA)2020-11-19 11:37:00 Test Item Value Reference Range Interpretation Comments NA (test code = 140 mmol/L 135-145 6096079065) K (test code = 4.0 mmol/L 3.5-5 3960780240) CL (test code = 103 mmol/L 98-108 2066496745) CO2 TOTAL (test code = 27 mmol/L 23-31 3796780261) AGAP (test code = 2-16 0127977179) BUN (test code = 32 mg/dL 7-23 H 1033546791) GLUCOSE (test code = 88 mg/dL 70-110 4412431375) CREATININE (test code = 0.95 mg/dL 0.6-1.25 4022811601) CALCIUM (test code = 8.5 mg/dL 8.6-10.6 L 1769157543) eGFR Calculation mL/min/1.73m2 (Non-) (test code = 5303605403) eGFR Calculation mL/min/1.73m2 () (test code = 8343510374) CHANDRIKA (test code = CHANDRIKA) Association of [...] tests). Lab Interpretation Abnormal (test code = 33409-8) [facility] COVID [id number] 02:39:00COVID DMT InterpretationInterpretation/Recommendations: Molecular NAAT Tests for [...] COVID-19 testing the patient has had at [facility], including molecular NAATtesting (more commonly known as PCR testing and Rapid ID Now testing) and antibody testing. It does not take into account any testing that a patient has had outside of the [facility] medical record. [facility] LABORATORY SERVICESCOVID QckschwXIMT-[id number] Rapid ID NOW (no units) ? ? Date ? Value ? 11/15/2020 ? Not Detected ? [facility]AT[facility] SERVICESUn[facility] Met[facility] Panel (NA, K, CL, CO2, GLUCOSE, BUN, CREATININE, CA) 2020-11-18 12:03:00 Test Item Value Reference Range Interpretation Comments NA (test code = 138 mmol/L 135-145 3660785980) K (test code = 3.6 mmol/L 3.5-5 5733285777) CL (test code = 104 mmol/L 98-108 7972029570) CO2 TOTAL (test code = 26 mmol/L 23-31 8967577542) AGAP (test code = 2-16 5771561836) BUN (test code = 27 mg/dL 7-23 H 3575290165) GLUCOSE (test code = 80 mg/dL 70-110 9077388423) CREATININE (test code = 1.07 mg/dL 0.6-1.25 5813661576) CALCIUM (test code = 8.5 mg/dL 8.6-10.6 L 6367219455) eGFR Calculation mL/min/1.73m2 (Non-) (test code = 2785892891) eGFR Calculation mL/min/1.73m2 () (test code = 2556075448) CHANDRIKA (test code = CHANDRIKA) Association of [...] tests). Lab Interpretation Abnormal (test code = 60952-7) [facility] with [id number] 10:58:00 Test Item Value Reference Range Interpretation Comments WBC (test code = See_Comment [Automated 7990-2) message] The sy stem which generated this [...] RDW-SD (test code = 47.4 fL 38.5-51.6 11598-0) RDW-CV (test code = 15.3 % 12.1-15.4 788-0) PLT (test code = See_Comment [Automated 777-3) message] The sy stem which generated this result transmitted reference range : 150 - 328 10*3/ ?L. The reference r alanna was not used to interpret this result as normal/abnormal . MPV (test code = 11.5 fL 9.8-13 73905-8) NRBC/100 WBC (test See_Comment [Automat ed code = 2815066778) message] The system which generated this result transmitted reference range : 0.0 - 10.0 /100 WBCs. The refer ence range was not u sed to interpret th is result as normal/abnormal . NRBC x10^3 (test code <0.01 See_Comment [Auto mated = 3148694123) message] The s ystem which generated this result transmitted reference range : 10*3/?L. The reference range was not used to interpret this result as normal/abnormal . GRAN MAT (NEUT) % 58.5 % (test code = 770-8) IMM GRAN % (test code 0.30 % = 5489480317) LYMPH % (test code = 23.6 % 736-9) MONO % (test code = 13.2 % 5905-5) EOS % (test code = 3.8 % 713-8) BASO % (test code = 0.6 % 706-2) GRAN MAT x10^3(ANC) 4.00 10*3/uL 1.99-6.95 (test code = 0496601726) IMM GRAN x10^3 (test <0.03 0-0.06 code = 2868497868) LYMPH x10^3 (test code 1.61 10*3/uL 1.09-3.23 = 731-0) MONO x10^3 (test code 0.90 10*3/uL 0.36-1.02 = 742-7) EOS x10^3 (test code = 0.26 10*3/uL 0.06-0.53 711-2) BASO x10^3 (test code 0.04 10*3/uL 0.01-0.09 = 704-7) Lab Interpretation Abnormal (test code = 95750-4) [facility] Whole [id number] 09:41:00 Test Item Value Reference Range Interpretation Comments LACTIC ACID (test code = 1.17 mmol/L 8675998495) [facility] Metabolic Panel (NA, K, CL, CO2, GLUCOSE, BUN, CREATININE, CA)2020-11-17 12:28:00 Test Item Value Reference Range Interpretation Comments NA (test code = 139 mmol/L 135-145 1836306468) K (test code = 3.6 mmol/L 3.5-5 8663796781) CL (test code = 103 mmol/L 98-108 0775918633) CO2 TOTAL (test code = 28 mmol/L 23-31 1400829588) AGAP (test code = 2-16 2234676483) BUN (test code = 21 mg/dL 7-23 0904317051) GLUCOSE (test code = 88 mg/dL 70-110 1066409508) CREATININE (test code = 1.14 mg/dL 0.6-1.25 0315239607) CALCIUM (test code = 8.2 mg/dL 8.6-10.6 L 2604780235) eGFR Calculation mL/min/1.73m2 (Non-) (test code = 1783706163) eGFR Calculation mL/min/1.73m2 () (test code = 1842595630) CHANDRIKA (test code = CHANDRIKA) Association of [...] tests). Lab Interpretation Abnormal (test code = 48017-0) [facility] with [id number] 12:10:00 Test Item Value Reference Range Interpretation Comments WBC (test code = See_Comment [Automated 5703-2) message] The sy stem which generated this result transmitted reference range : 4.20 - 10.70 10*3/?L. The reference range was not used to interpret this result as normal/abnormal . RBC (test code = See_Comment L [Automated 080-8) message] The sy stem which generated this [...] RDW-SD (test code = 47.8 fL 38.5-51.6 41856-1) RDW-CV (test code = 15.3 % 12.1-15.4 788-0) PLT (test code = See_Comment [Automated 777-3) message] The sy stem which generated this result transmitted reference range : 150 - 328 10*3/ ?L. The reference r alanna was not used to interpret this result as normal/abnormal . MPV (test code = 10.2 fL 9.8-13 61663-7) NRBC/100 WBC (test See_Comment [Automat ed code = 7840761654) message] The system which generated this result transmitted reference range : 0.0 - 10.0 /100 WBCs. The refer ence range was not u sed to interpret th is result as normal/abnormal . NRBC x10^3 (test code <0.01 See_Comment [Auto mated = 8415603014) message] The s ystem which generated this result transmitted reference range : 10*3/?L. The reference range was not used to interpret this result as normal/abnormal . GRAN MAT (NEUT) % 55.3 % (test code = 770-8) IMM GRAN % (test code 0.30 % = 6594142924) LYMPH % (test code = 25.7 % 736-9) MONO % (test code = 15.0 % 5905-5) EOS % (test code = 3.1 % 713-8) BASO % (test code = 0.6 % 706-2) GRAN MAT x10^3(ANC) 3.56 10*3/uL 1.99-6.95 (test code = 9046034721) IMM GRAN x10^3 (test <0.03 0-0.06 code = 4509823219) LYMPH x10^3 (test code 1.66 10*3/uL 1.09-3.23 = 731-0) MONO x10^3 (test code 0.97 10*3/uL 0.36-1.02 = 742-7) EOS x10^3 (test code = 0.20 10*3/uL 0.06-0.53 711-2) BASO x10^3 (test code 0.04 10*3/uL 0.01-0.09 = 704-7) Lab Interpretation Abnormal (test code = 46500-1) [facility] GLUCOSE (AUTOMATED)2020-11-16 22:48:00 Test Item Value Reference Range Interpretation Comments POCT GLU (test code = 7910735956) 127 mg/dL 70-110 H Lab Interpretation (test code = Abnormal 26104-9) [facility]2020-11-16 19:30:00 Test Item Value Reference Range Interpretation Comments HGB A1C (test code = 5.2 % 4-6 4548-4) CHANDRIKA (test code = CHANDRIKA) %A1C (NGSP) Interpretation (ADA)4.8-5.6 ? ? Normal or (Non-Diabetic Range)5.7-6.4 ? ? Increased Risk (Pre-Diabetic)>6.5 ?Diabetes Indicated Lab Interpretation Normal (test code = 93241-1) [facility] GLUCOSE (AUTOMATED)2020-11-16 17:42:00 Test Item Value Reference Range Interpretation Comments POCT GLU (test code = 2689616026) 115 mg/dL 70-110 H Lab Interpretation (test code = Abnormal 11859-7) [facility] [id number] 15:42:20 Essentially unremarkable renal ultrasound. No hydronephrosis [...] not imaged.IMPRESSIONEssentially unremarkable renal ultrasound. No hydronephrosis ornephrolithiasis.[facility]2020-11-16 13:54:00 Test Item Value Reference Range Interpretation Comments POCT GLU (test code = 6914309204) 99 mg/dL 70-110 Lab Interpretation (test code = Normal 89819-2) [facility] (NA, K, CL, CO2, GLUCOSE, BUN, CREATININE, CA)2020-11-16 10:47:00 Test Item Value Reference Range Interpretation Comments NA (test code = 139 mmol/L 135-145 4505480573) K (test code = 3.8 mmol/L 3.5-5 9684804083) CL (test code = 104 mmol/L 98-108 8361595472) CO2 TOTAL (test code = 27 mmol/L 23-31 2689056745) AGAP (test code = 2-16 4348101028) BUN (test code = 20 mg/dL 7-23 1155665628) GLUCOSE (test code = 95 mg/dL 70-110 3609367031) CREATININE (test code = 1.20 mg/dL 0.6-1.25 6128838670) CALCIUM (test code = 8.2 mg/dL 8.6-10.6 L 8040100983) eGFR Calculation mL/min/1.73m2 (Non-) (test code = 3001338618) eGFR Calculation mL/min/1.73m2 () (test code = 0375547326) CHANDRIKA (test code = CHANDRIKA) Association of [...] tests). Lab Interpretation Abnormal (test code = 08612-0) [facility] with Hdwdiebaveix4501-22-57 10:15:00 Test Item Value Reference Range Interpretation Comments WBC (test code = See_Comment [Automated 8290-2) message] The sy stem which generated this [...] RDW-SD (test code = 47.2 fL 38.5-51.6 54760-2) RDW-CV (test code = 15.3 % 12.1-15.4 788-0) PLT (test code = See_Comment [Automated 777-3) message] The sy stem which generated this result transmitted reference range : 150 - 328 10*3/ ?L. The reference r alanna was not used to interpret this result as normal/abnormal . MPV (test code = 9.8 fL 9.8-13 12192-7) NRBC/100 WBC (test See_Comment [Automat ed code = 7312822753) message] The system which generated this result transmitted reference range : 0.0 - 10.0 /100 WBCs. The refer ence range was not u sed to interpret th is result as normal/abnormal . NRBC x10^3 (test code <0.01 See_Comment [Auto mated = 4726531987) message] The s ystem which generated this result transmitted reference range : 10*3/?L. The reference range was not used to interpret this result as normal/abnormal . GRAN MAT (NEUT) % 68.2 % (test code = 770-8) IMM GRAN % (test code 0.30 % = 3880965139) LYMPH % (test code = 17.6 % 736-9) MONO % (test code = 10.7 % 5905-5) EOS % (test code = 2.8 % 713-8) BASO % (test code = 0.4 % 706-2) GRAN MAT x10^3(ANC) 5.04 10*3/uL 1.99-6.95 (test code = 9113871668) IMM GRAN x10^3 (test <0.03 0-0.06 code = 2623746677) LYMPH x10^3 (test code 1.30 10*3/uL 1.09-3.23 = 731-0) MONO x10^3 (test code 0.79 10*3/uL 0.36-1.02 = 742-7) EOS x10^3 (test code = 0.21 10*3/uL 0.06-0.53 711-2) BASO x10^3 (test code 0.03 10*3/uL 0.01-0.09 = 704-7) Lab Interpretation Abnormal (test code = 92584-0) [facility] GLUCOSE (AUTOMATED)2020-11-15 23:02:00 Test Item Value Reference Range Interpretation Comments POCT GLU (test code = 2327650835) 141 mg/dL 70-110 H Lab Interpretation (test code = Abnormal 03487-2) [facility] GLUCOSE (AUTOMATED)2020-11-15 17:50:00 Test Item Value Reference Range Interpretation Comments POCT GLU (test code = 5210160700) 117 mg/dL 70-110 H Lab Interpretation (test code = Abnormal 13984-8) [facility] GLUCOSE (AUTOMATED)2020-11-15 14:06:00 Test Item Value Reference Range Interpretation Comments POCT GLU (test code = 4960915802) 154 mg/dL 70-110 H Lab Interpretation (test code = Abnormal 17541-0) [facility] ABDOMEN PELVIS WO [id number] 13:55:56 Moderate circumferential bladder wall thickening, out [...] Preliminary Report Dictated by Resident: Zacarias Mayo ?MD. Ruel, have reviewed this study and agree withtheabove [...] lumen. Preliminary Report Dictated by Resident: Zacarias Meredith, MD., have reviewed this study and agree with theabove report.[facility] CenterLactic Acid Whole [id number] 11:17:00 Test Item Value Reference Range Interpretation Comments LACTIC ACID (test code = 2.02 mmol/L 7702548144) [facility] 07:24:00 Test Item Value Reference Range Interpretation Comments APPEARANCE (test code = Cloudy Clear A 2333680102) COLOR (test code = Nieves Yellow A 3618784102) PH (test code = 4.8-8.0 3900970353) SP GRAVITY (test code = 1.003-1.030 7369174663) GLU U QUAL (test code = Normal Normal 7667967641) BLOOD (test code = Negative Negative 3445706996) KETONES (test code = Negative Negative 3411814373) PROTEIN (test code = 500 mg/dL Negative A 2887-8) UROBILIN (test code = Normal Normal 2449295386) BILIRUBIN (test code = Negative Negative 8852690849) NITRITE (test code = Negative Negative 6495355247) LEUK BRAD (test code = 500/uL Negative A 0424142641) RBC/HPF (test code = See_Comment [Autom ated message] 9710060395) The system [employer] generated this result transmit arnoldo reference range : 0 - 3 HPF. The refe rence range was not u sed to interpret th is result as normal/abnormal . WBC/HPF (test code = >182 See_Comment H [Autom ated message] 9444124552) The system [employer] generated this result transmit arnoldo reference range : 0 - 5 HPF. The refe rence range was not u sed to interpret th is result as normal/abnormal . BACTERIA (test code = Many Negative A 6788066558) MUCOUS (test code = Slight Negative LPF A 5786430678) WBC CLUMPS (test code = See_Comment H [Au tomated message] 1277971583) The system [employer] generated this result transmit arnoldo reference range : <=1 HPF. The refere nce range was not u sed to interpret th is result as normal/abnormal . CA OXALATE (test code = See_Comment [Au tomated message] 8831590623) The system whic h generated this result transmit arnoldo reference range : <=1 HPF. The refere nce range was not u sed to interpret th is result as normal/abnormal . Lab Interpretation (test Abnormal code = 43276-8) [facility] ([facility] NOW RAPID TESTING)2020-11-15 07:03:00 Test Item Value Reference Range Interpretation Comments SARS-CoV-2 Rapid ID NOW Not Detected Not Detected (test code = 84489-3) CHANDRIKA (test code = CHANDRIKA) ID NOW COVID-19 Assay is an isothermal nucleic acid amplification test intended for the qualitative detection of nucleic acid from SARS-CoV-2 viral RNA in nasopharyngeal (SENIOR SOFTWARE ANALYST) specimens. It is used under Emergency Use [...] indicated. Lab Interpretation Normal (test code = 50380-4) [facility]. METABOLIC PANEL (38597)2020-11-15 06:59:00 Test Item Value Reference Range Interpretation Comments NA (test code = 143 mmol/L 135-145 3988625552) K (test code = 4.1 mmol/L 3.5-5 0344907074) CL (test code = 104 mmol/L 98-108 5849536579) CO2 TOTAL (test code = 26 mmol/L 23-31 4828488040) AGAP (test code = 2-16 4173295361) BUN (test code = 25 mg/dL 7-23 H 9870015804) GLUCOSE (test code = 168 mg/dL 70-110 H 8821016938) CREATININE (test code = 1.24 mg/dL 0.6-1.25 9098173425) TOTAL BILI (test code = 1.2 mg/dL 0.1-1.1 H 3922828218) CALCIUM (test code = 9.2 mg/dL 8.6-10.6 0659596032) T PROTEIN (test code = 8.2 g/dL 6.3-8.2 7482171596) ALBUMIN (test code = 4.1 g/dL 3.5-5 1037319151) ALK PHOS (test code = 120 U/L 34-122 7448106117) ALTv (test code = 28 U/L 5-50 1742-6) AST(SGOT) (test code = 41 U/L 13-40 H 7904433650) eGFR Calculation mL/min/1.73m2 (Non-) (test code = 6645888842) eGFR Calculation mL/min/1.73m2 () (test code = 3473603509) CHANDRIKA (test code = CHANDRIKA) Association of [...] tests). Lab Interpretation Abnormal (test code = 32085-9) [facility] WITH [id number] 06:45:00 Test Item Value Reference Range Interpretation Comments WBC (test code = See_Comment H [Automated 6690-2) message] The system which generated this result transmit arnoldo reference range : 4.20 - 10.70 10*3/?L. The reference range was not used to interpret this result as normal/abnormal . RBC (test code = See_Comment [Automated 789-8) message] The system which generated this result transmit aronldo reference range : 4.26 - 5.52 10*6/?L. [...] RDW-SD (test code = 48.8 fL 38.5-51.6 21251-9) RDW-CV (test code = 15.5 % 12.1-15.4 H 788-0) PLT (test code = See_Comment [Automated 777-3) message] The system which generated this result transmit arnoldo reference range : 150 - 328 10*3/ ?L. The reference range was not u sed to interpret th is result as normal/abnormal . MPV (test code = 9.5 fL 9.8-13 L 05136-8) NRBC/100 WBC (test See_Comment [Automat ed code = 1162607614) message] The system which generated this result transmit arnoldo reference range : 0.0 - 10.0 /100 WBCs. The reference range was not used to interpret this result as normal/abnormal . NRBC x10^3 (test code <0.01 See_Comment [Auto mated = 9944487421) message] The system which generated this result transmit arnoldo reference range : 10*3/?L. The reference range was not used to interpret this result as normal/abnormal . GRAN MAT (NEUT) % 79.9 % (test code = 770-8) IMM GRAN % (test code 0.70 % = 9158880370) LYMPH % (test code = 8.3 % 736-9) MONO % (test code = 9.5 % 5905-5) EOS % (test code = 1.1 % 713-8) BASO % (test code = 0.5 % 706-2) GRAN MAT x10^3(ANC) 12.19 10*3/uL 1.99-6.95 H (test code = 2480584198) IMM GRAN x10^3 (test 0.10 10*3/uL 0-0.06 H code = 5763416668) LYMPH x10^3 (test code 1.27 10*3/uL 1.09-3.23 = 731-0) MONO x10^3 (test code 1.45 10*3/uL 0.36-1.02 H = 742-7) EOS x10^3 (test code = 0.17 10*3/uL 0.06-0.53 711-2) BASO x10^3 (test code 0.08 10*3/uL 0.01-0.09 = 704-7) Lab Interpretation Abnormal (test code = 83440-9) [facility] Whole [id number] 06:41:00 Test Item Value Reference Range Interpretation Comments LACTIC ACID (test code = 3.45 mmol/L 7293148668) [facility]BAS[facility] [id number] 09:49:00 Test Item Value Reference Range Interpretation Comments SODIUM (test code = 144 mmol/L 136-145 N NA) POTASSIUM (test code 3.7 mmol/L 3.5-5.1 N = K) CHLORIDE (test code = 109.0 mmol/L 98-107 H CL) CARBON DIOXIDE (test 30.0 mmol/L 21-32 N code = CO2) ANION GAP (test code 8.7 10-20 L = GAP) GLUCOSE (test code = 125 mg/dL 74-106 H GLU) BLOOD UREA NITROGEN 17 mg/dL 7-18 N (test code = BUN) GLOMERULAR FILTRATION > 60 mL/min >=60 Estima arnoldo GFR by RATE (test code = using Shaniqua fied MDRD GFR) formula.Chronic kidney disease is defined as [facility] kidney damageor GFR <60 mL/min/1.73 m2 for >3 months. CREATININE (test code 0.90 mg/dL 0.7-1.3 N = CREAT) BUN/CREATININE RATIO 18.4 10-20 N (test code = BUN/CREA) CALCIUM (test code = 8.3 mg/dL 8.5-10.1 L CA) BASIC METABOLIC [id number] 09:42:00 Test Item Value Reference Range Interpretation Comments SODIUM (test code = NA) 144 mmol/L 136-145 N POTASSIUM (test code = K) 3.7 mmol/L 3.5-5.1 N CHLORIDE (test code = CL) 109.0 mmol/L 98-107 H CARBON DIOXIDE (test code = CO2) mmol/L 21-32 ANION GAP (test code = GAP) 10-20 GLUCOSE (test code = GLU) mg/dL 74-106 BLOOD UREA NITROGEN (test code = mg/dL 7-18 BUN) GLOMERULAR FILTRATION RATE (test mL/min >=60 code = GFR) CREATININE (test code = CREAT) mg/dL 0.7-1.3 BUN/CREATININE RATIO (test code 10-20 = BUN/CREA) CALCIUM (test code = CA) mg/dL 8.5-10.1 CBC W/AUTO [id number] 09:32:00 Test Item Value Reference Range Interpretation Comments WHITE BLOOD CELL (test code = 5.6 K/mm3 4.5-12.5 N WBC) RED BLOOD CELL (test code = 3.58 mill/mm3 4.0-5.8 L RBC) HEMOGLOBIN (test code = HGB) 10.4 gram/dL 13.0-17.5 L HEMATOCRIT (test code = HCT) 31.1 % 42.0-52.0 L MEAN CELL VOLUME (test code = 86.9 fL 80-98 N MCV) MEAN CELL HGB (test code = MCH) 29.1 picogram 27.0-33.0 N MEAN CELL HGB CONCETRATION 33.4 gram/dL 33.0-36.0 N (test code = MCHC) RED CELL DISTRIBUTION WIDTH 14.6 % 11.6-16.2 N (test code = RDW) RED CELL DISTRIBUTION WIDTH SD 46.0 fL 37.0-51.0 N (test code = RDW-SD) PLATELET COUNT (test code = 273 K/mm3 150-450 N PLT) MEAN PLATELET VOLUME (test code 10.2 fL 6.7-11.0 N = MPV) NEUTROPHIL % (test code = NT%) 59.2 % 39.0-69.0 N IMMATURE GRANULOCYTE % (test 0.4 % 0.0-5.0 N code = IG%) LYMPHOCYTE % (test code = LY%) 22.0 % 25.0-55.0 L MONOCYTE % (test code = MO%) 12.7 % 0.0-10.0 H EOSINOPHIL % (test code = EO%) 5.2 % 0.0-5.0 H BASOPHIL % (test code = BA%) 0.5 % 0.0-1.0 N NUCLEATED RBC % (test code = 0.0 % 0-0 N NRBC%) NEUTROPHIL # (test code = NT#) 3.30 K/mm3 1.8-7.7 N IMMATURE GRANULOCYTE # (test 0.02 x10 3/uL 0-0.03 N code = IG#) LYMPHOCYTE # (test code = LY#) 1.23 K/mm3 1.0-5.0 N MONOCYTE # (test code = MO#) 0.71 K/mm3 0-0.8 N EOSINOPHIL # (test code = EO#) 0.29 K/mm3 0.0-0.5 N BASOPHIL # (test code = BA#) 0.03 K/mm3 0.0-0.2 N NUCLEATED RBC # (test code = 0.00 K/mm3 0.0-0.1 N NRBC#) HEMOGLOBIN [id number] 09:54:00 Test Item Value Reference Range Interpretation Comments HEMOGLOBIN A1C (BEAKER) (test code = 6.2 % 4.3-6.1 H 368) [employer] Operator ID - ADMINHEMOGLOBIN [id number] 09:45:00 Test Item Value Reference Range Interpretation Comments HEMOGLOBIN A1C (BEAKER) (test code = 6.1 % 4.3-6.1 368) [employer] Operator ID - ADMINBASIC METABOLIC [id number] 04:58:00 Test Item Value Reference Range Interpretation [...] S NOT APPLICABLE FOR DIALYSIS PATIEN TS. [employer] Operator ID - [id number] 04:58:00 Test Item Value Reference Range Interpretation Comments MAGNESIUM (BEAKER) (test code = 1.7 mg/dL 1.6-2.6 627) [employer] Operator ID - EDASICBC W/PLT COUNT & AUTO [id number] 04:36:00 Test Item Value Reference Range Interpretation [...] (BEAKER) (test code = 2801) BASIC METABOLIC [id number] 07:31:00 Test Item Value Reference Range Interpretation [...] S NOT APPLICABLE FOR DIALYSIS PATIEN TS. [employer] Operator ID - DEMOND MCBC W/PLT COUNT & AUTO [id number] 07:21:00 Test Item Value Reference Range Interpretation [...] = 2801) RAD, CHEST, 1 VIEW, NON [id number] 08:26:00Reason for exam:->post-ppmShould this be performed at the bedside?->YesFINAL REPORT CLINICAL HISTORY: post-ppm TECHNIQUE: 1 view of the chest. COMPARISON: 08/07/2020 IMPRESSION: A left chest wall pacemaker is again seen without pneumothorax. There are no new infiltrates or significant effusions. Cardiomegaly is again noted. Signed: Michelle Tariq MDReport Verified Date/Time: 08/08/2020 08:26:51 Reading Location: [facility] Radiology Reading Room BASIC METABOLIC [id number] 06:17:00 Test Item Value Reference Range Interpretation [...] S NOT APPLICABLE FOR DIALYSIS PATIEN TS. [employer] Operator ID - DEMOND MCBC W/PLT COUNT & AUTO [id number] 05:59:00 Test Item Value Reference Range Interpretation [...] = 2801) RAD, CHEST, 1 VIEW, NON [id number] 20:04:00Reason for exam:->post ppmShould this be performed at the bedside?->YesFINAL REPORT AP view of the chest dated 08/07/2020 CLINICAL INFORMATION: post ppm Comment: Heart is normal in size. Thoracic aorta is ectatic. AICD is present. Pulmonary vasculature is unremarkable. Lungs are clear. No pulmonary infiltrate or pleural effusion is present. Impression: Ectatic thoracic aorta. Signed: Jame Duckworth MDReport Verified Date/Time: 08/07/2020 20:04:22Reading Location: [address] Consult Reading Room POCT-GLUCOSE [id number] 16:15:00 Test Item Value Reference Range Interpretation Comments POC-GLUCOSE METER 132 mg/dL 70-110 H : TESTED A T [facility] 6720 (BEAKER) (test code = [place], 1538) [address]375: [employer] Operator/Techni sara ID = [id number] for SALOMON KRUSE BASIC METABOLIC [id number] 06:15:00 Test Item Value Reference Range Interpretation [...] S NOT APPLICABLE FOR DIALYSIS PATIEN TS. [employer] Operator ID - PIAYA LSpecimen slightly ictericCBC W/PLT COUNT & AUTO [id number] 04:26:00 Test Item Value Reference Range Interpretation [...] PERCENT (BEAKER) (test code = 2801) PROTHROMBIN TIME/[id number] 04:18:00 Test Item Value Reference Range Interpretation [...] is2.5-3.5 for patients wiht mechanical heart valves.POCT-GLUCOSE [id number] 21:14:00 Test Item Value Reference Range Interpretation Comments POC-GLUCOSE METER 138 mg/dL 70-110 H : TESTED A T [facility] 6720 (BEAKER) (test code = ZARIA Franz [facility], 1538) 56449: [employer] Operator/Techni sara ID = [id number] for LUIS [place] CT, BRAIN, WITHOUT [id number] 18:41:00Unlisted Reason for Exam - Click Yes [...] Zahida Dobbs MDReport Verified Date/Time: 08/06/2020 18:41:07 [id number] 14:05:00 Test Item Value Reference Range Interpretation Comments MAGNESIUM (BEAKER) (test code = 1.8 mg/dL 1.6-2.6 627) [employer] Operator ID - [place] FSARS-COV2/RT-PCR ([facility])2020-08-06 13:22:00 Test Item Value Reference Range Interpretation Comments SARS-COV2/RT-PCR (test Negative Not Detected, Negative, code = 2067518) See external report for linked test SARS-COV-2 PERFORMING LAB [facility] (test code = 9963277) Negative result for this test determines that [...] 564(g) of the Act.Fact Sheet for Healthcare Providers:https://www.[employer]/sites/default/files/product/documents/Fact_Shee w_XU_Uckxptmtx_Cybj_RLED-FgJ-8.pdfFact Sheet for Healthcare Patients:https://www.[employer]/sites/default/files/product/ documents/Iujl_Dktbh_Evxswztu_Ygim_SFDX-KjK-7.pdfPerforming Laboratory:[facility], [place] [address]YVEJ-ELFQNXH METER 2020-08-06 12:21:00 Test Item Value Reference Range Interpretation Comments POC-GLUCOSE METER 180 mg/dL 70-110 H : TESTED Vance Mares [facility] 6720 (BEAKER) (test code = ZARIA Franz [facility], 1538) [address]60[address]: [employer] Operator/Techni sara ID = [id number] for LUIS [place] BASIC METABOLIC [id number] 05:00:00 Test Item Value Reference Range Interpretation [...] S NOT APPLICABLE FOR DIALYSIS PATIEN TS. [employer] Operator ID - DEMOND MCBC W/PLT COUNT & AUTO [id number] 04:43:00 Test Item Value Reference Range Interpretation [...] PERCENT (BEAKER) (test code = 2801) TROPONIN [id number] 19:55:00 Test Item Value Reference Range Interpretation [...] failure, acidosis, acute neurological disease, and persistent tachyarrhythmia.[employer] Operator ID - RMBASIC METABOLIC PANEL 2020-08-05 19:47:00 [...] S NOT APPLICABLE FOR DIALYSIS PATIEN TS. [employer] Operator ID - RMBLOOD GAS, [id number] 19:17:00 Test Item Value Reference Range Interpretation [...] FIO2 (BEAKER) (test code = 1819) 50.0 [id number] 19:11:00 Test Item Value Reference Range Interpretation Comments MAGNESIUM (BEAKER) 2.1 mg/dL 1.6-2.6 Specimen slightly (test code = 627) hemolyzed [employer] Operator ID - RMPOCT-GLUCOSE [id number] 18:45:00 Test Item Value Reference Range Interpretation Comments POC-GLUCOSE METER 133 mg/dL 70-110 H : TESTED A T [facility] 6720 (BEAKER) (test code = ZARIA Franz [facility], 1538) 03642: [employer] Operator/Techni sara ID = [id number] for JOHN Saenz LUIS RAD, CHEST, 1 VIEW, NON [id number] 18:01:00Reason for exam:->post TVP placementShould this be [...] IMPRESSION:No significant interval change. Signed: Zahida Dobbs MDRepdrea Verified Date/Time: 08/05/2020 18:01:39 VALPROIC ACID LEVEL, TOTAL 2020-08-05 14:05:00 Test Item Value Reference Range Interpretation Comments VALPROIC ACID TOTAL (BEAKER) (test 30 ug/mL 50-100 L code = 924) Therapeutic range for some clinical conditions may be >100 ug/mLOperator ID - RMCOMPREHENSIVE METABOLIC [id number] 14:03:00 Test Item Value Reference Range Interpretation [...] S NOT APPLICABLE FOR DIALYSIS PATIEN TS. [employer] Operator ID - TAHIRAROPONIN [id number] 13:59:00 Test Item Value Reference Range Interpretation [...] failure, acidosis, acute neurological disease, and persistent tachyarrhythmia.[employer] Operator ID - DAYAGB-TYPE NATRIURETIC FACTOR (BNP)2020-08-05 13:59:00 Test Item Value Reference Range Interpretation Comments B-TYPE NATRIURETIC PEPTIDE (BEAKER) 29 pg/mL 0-100 (test code = 700) [employer] Operator ID - DAYAGBLOOD GAS, [id number] 13:29:00 Test Item Value Reference Range Interpretation [...] 1819) 100.0 CBC W/PLT COUNT & AUTO [id number] 13:29:00 Test Item Value Reference Range Interpretation [...] = 2801) RAD, CHEST, 1 VIEW, NON [id number] 13:12:00Reason for exam:- >intubationShould this be performed [...] MDReport Verified Date/Time: 08/05/2020 13:12:04 Reading Location: [facility] C013T Transitional Reading Room 01:12 PM"
[2021-10-23 11:41] LABS: Urine Blood 3+ (Negative); Urine Glucose Negative (Negative); Urine Protein 2+ (Negative); Urine Specific Gravity >=1.030 (1.005-1.030)
--- NOTE | 2021-10-23 11:58 | RAD REPORT ---
EXAM DESCRIPTION: RAD - Chest Single View - 10/23/2021 11:30 am CLINICAL HISTORY: CONGESTION COMPARISON: October 02 TECHNIQUE: AP portable chest image was obtained 10/23/2021 11:30 am . FINDINGS: Lung volumes are relatively low. No peripheral mass or consolidation. Significant failure or volume overload are not suspected. Interstitial pattern is not clearly different from comparison. Left subclavian pacemaker is in place. Right-side PICC line has been removed since prior imaging. Heart and vasculature are normal. No measurable pleural effusion and no pneumothorax. No acute bony abnormality seen. No acute aortic findings suspected. IMPRESSION: No acute cardiopulmonary process. No significant change from comparison.
[2021-10-23 12:00] LABS: Absolute Lymphocytes (CBC) 0.8 K/uL (0.7-4.9); Lymphocytes % 10.4 % (15.3-44.8); MPV 7.1 fL (7.6-11.3)
[2021-10-23 12:07] LABS: Urine Bacteria 20-50 /HPF (NONE SEEN); Urine Mucus 2+ /HPF (NONE SEEN); Urine Yeast MANY (NONE SEEN); Urine Yeast with Hyphae PRESENT
[2021-10-23 12:19] LABS: BUN Blood Urea Nitrogen 18 mg/dL (7-18); Bicarbonate 28 mmol/L (21-32); Glucose Level 106 mg/dL (74-106); Potassium 3.3 mmol/L (3.5-5.1); Sodium Level 139 mmol/L (136-145)
[2021-10-23 12:48] LABS: SARS-COV-2 RT PCR NEGATIVE (NEGATIVE)
[2021-10-23] MEDS ORDERED: CEFTRIAXONE 1000 MG/VIAL ONE (13:26)
[2021-10-23] MEDS ORDERED: NA CHLORIDE 0.9% 100 ML ONE (13:26)
[2021-10-23] MEDS ORDERED: FLUCONAZOLE 100 MG TAB ONE (14:04)
--- NOTE | 2021-10-23 14:27 | EDPHYS ---
Physician Documentation [facility] Name: Raphael Hoyos Age: 65 yrs Sex: Male : 1955 Arrival Date: 10/23/2021 Time: 10:32 Bed 5 Private MD: ED Physician Martir Hahn HPI: 10/23 16:16 This 65 yrs old Male presents to ER via EMS with complaints of Sore Throat, General kdr Weakness. 16:16 Patient was sent to the ED for generalized weakness and possibly a sore throat. Is not kdr clear how the sore throat was determined as the patient is not able to communicate very well and does not admit to a sore throat when directly asked about it. 16:17 Patient was sent from [place] for possible sore throat and as well as weakness. kdr Onset: The symptoms/episode began/occurred at an unknown time. Severity of symptoms: At their worst the symptoms were mild moderate just prior to arrival, in the emergency department the symptoms are unchanged. It is unknown whether or not the patient has had similar symptoms in the past. It is unknown whether or not the patient has recently seen a physician. Historical: - Allergies: 11:09 No Known Allergies; bp - Immunization history:: Adult Immunizations unknown. - Social history:: Smoking status: unknown. ROS: 16:17 Constitutional: Patient is a very poor historian and is unable to give a history kdr verbally 16:17 Unable to obtain ROS due to patient's speech is incomprehensible. Exam: 16:17 Constitutional: This is a well developed, well nourished patient who is awake, alert, kdr and in no acute distress. Head/Face: Normocephalic, atraumatic. Eyes: Pupils equal round and reactive to light, extra-ocular motions intact. Lids and lashes normal. Conjunctiva and sclera are non-icteric and not injected. Cornea within normal limits. Periorbital areas with no swelling, redness, or edema. Neck: Trachea midline, no thyromegaly or masses palpated, and no cervical lymphadenopathy. Supple, full range of motion without nuchal rigidity, or vertebral point tenderness. No Meningismus. Chest/axilla: Normal chest wall appearance and motion. Nontender with no deformity. No lesions are appreciated. Cardiovascular: Regular rate and rhythm with a normal S1 and S2. No gallops, murmurs, or rubs. Normal PMI, no JVD. No pulse deficits. Respiratory: Lungs have equal breath sounds bilaterally, clear to auscultation and percussion. No rales, rhonchi or wheezes noted. No increased work of breathing, no retractions or nasal flaring. Back: No spinal tenderness. No costovertebral tenderness. Full range of motion. Skin: Warm, dry with normal turgor. Normal color with no rashes, no lesions, and no evidence of cellulitis. Vital Signs: 10:33 BP 100 / 62; Pulse 80; Resp 19; Temp 98.5; Pulse Ox 93% on R/A; bp 12:00 BP 119 / 68; Pulse 79; Resp 16; Pulse Ox 93% ; bp 13:00 BP 100 / 78; Pulse 77; Resp 12; Pulse Ox 94% ; bp 14:00 BP 121 / 76; Pulse 80; Resp 16; Pulse Ox 93% ; bp 15:00 BP 108 / 75; Pulse 88; Resp 17; Pulse Ox 88% ; bp 16:00 BP 111 / 73; Pulse 80; Resp 16; Pulse Ox 92% ; bp MDM: 14:27 Patient medically screened. kdr 16:17 Data reviewed: vital signs, nurses notes. Counseling: I had a detailed discussion with kdr the patient and/or guardian regarding: the historical points, exam findings, and any diagnostic results supporting the discharge/admit diagnosis, lab results, radiology results, the need for outpatient follow up. Medical screen evaluation completed. [facility] emergency medical condition absent. 10/23 11:03 Order name: Flu [facility] 10/23 11:03 Order name: Urine Culture [facility] 10/23 11:03 Order name: CBC with Diff; Complete Time: 12:59 [facility] 10/23 11:03 Order name: Chem 7; Complete Time: 12:59 [facility] 10/23 11:03 Order name: Strep; Complete Time: 12:59 [facility] 10/23 11:03 Order name: Urine Dipstick-Ancillary (obtain specimen); Complete Time: 11:41 kdr 10/23 11:03 Order name: CXR XRAY; Complete Time: 12:01 kdr 10/23 11:41 Order name: Urine Dipstick-Ancillary; Complete Time: 12:01 EDMS 10/23 11:41 Order name: Urine Microscopic Only; Complete Time: 12:59 bp 10/23 12:06 Order name: COVID-19/FLU A+B; Complete Time: 12:59 EDMS 10/23 12:14 Order name: Throat Culture EDMS Administered Medications: 12:30 Drug: Rocephin - (cefTRIAXone) 1 grams Route: IVPB; Infused Over: 30 mins; Site: right bp antecubital; 16:34 Follow up: IV Status: Completed infusion; IV Intake: 50ml bp 13:30 Drug: DiFLUcan (fluconazole) 150 mg Route: PO; bp 14:52 Follow up: Response: No adverse reaction bp Disposition Summary: 10/23/21 14:27 Discharge Ordered Location: Home kdr Problem: new kdr Symptoms: have improved kdr Condition: Stable kdr Diagnosis - UTI/ Urinary tract infection, site not specified kdr Followup: kdr - With: Private Physician - When: 2 - 3 days - Reason: If symptoms return, Further diagnostic work-up, Recheck today's complaints, Continuance of care, Re-evaluation by your physician Discharge Instructions: - Discharge Summary Sheet kdr - Urinary Tract Infection, Adult, [id number] kdr Forms: - Medication Reconciliation Form kdr - Thank You Letter kdr - Antibiotic Education kdr - Prescription Opioid Use kdr Prescriptions: - sulfamethoxazole-trimethoprim 200-40 mg/5 mL Oral Suspension - take 40 milliliter by ORAL route every 12 hours for 10 days; 800 milliliter; kdr Refills: 0, Product Selection Permitted Signatures: Dispatcher [employer] EDMartir Irizarry MD MD kdr Abdulaziz Daly, RN RN bp Corrections: (The following items were deleted from the chart) 12:05 11:03 CORONAVIRUS+MREmmanuelLABEmmanuelCARITOZ ordered. EDOK EDMS
--- NOTE | 2021-10-23 14:27 | ER ---
Nurse's Notes [facility] Name: Raphael Hoyos Age: 65 yrs Sex: Male : 1955 Arrival Date: 10/23/2021 Time: 10:32 Bed 5 Private MD: Diagnosis: UTI/ Urinary tract infection, site not specified Presentation: 10/23 10:33 Chief complaint: EMS states: [facility] CALLED FOR SORE THROAT AND "MORE WEAK THAN bp USUAL". Coronavirus screen: congestion, sore throat, Client presents with at least one sign or symptom that may indicate coronavirus-19. Standard/surgical mask placed on the client. Provider contacted for isolation considerations. Ebola Screen: No symptoms or risks identified at this time. Initial Sepsis Screen: Does the patient meet any 2 criteria? No. Patient's initial sepsis screen is negative. Does the patient have a suspected source of infection? No. Patient's initial sepsis screen is negative. Risk Assessment: Do you want to hurt yourself or someone else? Patient reports no desire to harm self or others. Onset of symptoms is unknown. 10:33 Method Of Arrival: EMS: [facility] bp 10:33 Acuity: DANIELA 3 bp Triage Assessment: 11:00 General: Appears in no apparent distress. comfortable, obese, unkempt, Behavior is bp listless. Pain: Unable to use pain scale. Does not appear to understand pain scale. EENT: No deficits noted. Neuro: Level of Consciousness is listless, Oriented to none PT AT BASELINE. Cardiovascular: No deficits noted. Respiratory: No deficits noted. GI: No signs and/or symptoms were reported involving the gastrointestinal system. : Wang in place. Derm: No deficits noted. Musculoskeletal: No deficits noted. Historical: - Allergies: 11:09 No Known Allergies; bp - Immunization history:: Adult Immunizations unknown. - Social history:: Smoking status: unknown. Screenin:05 Abuse screen: Denies threats or abuse. Denies injuries from another. Nutritional bp screening: No deficits noted. Tuberculosis screening: No symptoms or risk factors identified. Fall Risk None identified. Assessment: 11:05 General: SEE TRIAGE NOTE. bp 12:00 Reassessment: No changes from previously documented assessment. Patient and/or family bp updated on plan of care and expected duration. Pain level reassessed. 12:00 Respiratory: Airway is patent Respiratory effort is even, unlabored, Breath sounds are bp coarse bilaterally. 14:00 Reassessment: No changes from previously documented assessment. Patient and/or family bp updated on plan of care and expected duration. Pain level reassessed. 15:34 Reassessment: EMS is route to transport pt back [facility]. jl7 16:32 Reassessment: EMS AT B/S FOR TRANSPORT HOME. bp Vital Signs: 10:33 BP 100 / 62; Pulse 80; Resp 19; Temp 98.5; Pulse Ox 93% on R/A; bp 12:00 BP 119 / 68; Pulse 79; Resp 16; Pulse Ox 93% ; bp 13:00 BP 100 / 78; Pulse 77; Resp 12; Pulse Ox 94% ; bp 14:00 BP 121 / 76; Pulse 80; Resp 16; Pulse Ox 93% ; bp 15:00 BP 108 / 75; Pulse 88; Resp 17; Pulse Ox 88% ; bp 16:00 BP 111 / 73; Pulse 80; Resp 16; Pulse Ox 92% ; bp ED Course: 10:32 Patient arrived in ED. bp 10:37 Triage completed. bp 10:37 Abdulaziz Daly, RADHAMES is Primary Nurse. bp 10:48 Martir Hahn MD is Attending Physician. kdr 11:05 Wang cath inserted, using sterile technique, 18 Fr., by ok, balloon inflated, to bp gravity drainage, urine specimen collected. 11:05 Patient has correct armband on for positive identification. Bed in low position. Call bp light in reach. Side rails up X2. Adult w/ patient. 11:11 Arm band placed on. bp 11:30 CXR XRAY In Process Unspecified. EDMS 11:40 Inserted saline lock: 22 gauge in right forearm, using aseptic technique. Blood bp collected. 14:52 Flu Sent. bp 14:52 Urine Culture Sent. bp 16:33 No provider procedures requiring assistance completed. IV discontinued, intact, bp bleeding controlled, No redness/swelling at site. Pressure dressing applied. Administered Medications: 12:30 Drug: Rocephin - (cefTRIAXone) 1 grams Route: IVPB; Infused Over: 30 mins; Site: right bp antecubital; 16:34 Follow up: IV Status: Completed infusion; IV Intake: 50ml bp 13:30 Drug: DiFLUcan (fluconazole) 150 mg Route: PO; bp 14:52 Follow up: Response: No adverse reaction bp Intake: 16:34 IV: 50ml; Total: 50ml. bp Outcome: 14:27 Discharge ordered by . kdr 16:33 [facility] to [facility]. Transfer form completed. bp 16:33 Condition: stable 16:33 Discharge instructions given to patient, prison, Instructed on discharge instructions, follow up and referral plans. medication usage, Demonstrated understanding of instructions, follow-up care, medications, Prescriptions given X 1. 16:34 Patient left the ED. bp Signatures: Dispatcher [employer] EDMS Martir Hahn MD MD kdr Leal, Jahala RN RN [id number] Abdulaziz Daly RN RN bp
[2021-10-23 16:39] VITALS: TEMP 98.5
[2021-10-23 16:46] VITALS: BP 111/73; O2SAT 92
== END 2021-10-23 16:34 | disposition home or self-care (01) ==
LOC: ER 10:12
DX: N39.0 Urinary tract infection, site not specified (principal); Z20.822 Contact with and (suspected) exposure to COVID-19
CPT/HCPCS: 96365; 87070; 87088; 85025; 87086; 80048; 36415; 87081; 0240U; 71045; 51702; 99284; 96366; 81003; 81015

== ENCOUNTER 2021-11-20 06:20 | Inpatient (IN) | payer OTHER ==
[2021-11-20] MEDS ORDERED: ETOMIDATE 20 MG/10 ML VIAL IV ONE (06:21)
[2021-11-20] MEDS ORDERED: SUCCINYLCHOLINE 20 MG/ML (10 ML) IV ONE (06:21)
--- OUTSIDE RECORDS SUMMARY | 2021-11-20 06:26 | XMS REPORT | Continuity of Care Document ---
:1955 Author Organization [facility] t Address [address] [place] [address] [address] [place] [address] Care Team Providers Name Role Phone JESSE MERAZ Attending Clinician Unavailable KNOW Attending Clinician Unavailable Osei Cuevas Attending Clinician Bryant ZAZUETA Attending Clinician Giselle ZAZUETA Attending Clinician Osei CLAROS Attending Clinician Unavailable JESSE MERAZ Admitting Clinician Unavailable KNOW Admitting Clinician Unavailable Bryant ZAZUETA Admitting Clinician Payers Payer Name Policy Type Policy Number Effective Date Expiration Date S laurent [facility] COMM STAR PLAN [id number] Problems Condition Condition Condition Status Onset Resolution Last Treating Co mments Source Name Details Category Date Date Treatment Clinician Date Complicate Complicate Disease Active U nivers d UTI d UTI 1-21 ity of (urinary (urinary 00:00: [place] tract tract 00 Medical infection) infection) Br anch Obesity Obesity Disease Active 2015-10 Univers (BMI (BMI 2-20 ity of 30-39.9) 30-39.9) 00:00: [address] Stroke Stroke Disease Active 2015-10 Univers 2-20 ity of 00:00: [address] Left arm Left arm Disease Active 2015-10 Unive rs weakness weakness 2-19 ity of 00:00: [address] Allergies, Adverse Reactions, Alerts Allergy Allergy Status Severity Reaction(s) Onset Inactive Treating Comm ents Source Name Type Date Date Clinician NO KNOWN Allergy Active [facility] NO KNOWN Drug Active [facility] [place] ALLERG Class ity of S [facility] Social History Social Habit Start Date Stop Date Quantity Comments Source Sex Assigned At Universit y of [facility] Exposure to Not sure University of SARS-CoV-2 (event) [facility] History of tobacco Cigarette Smoker University of use [place] [facility] History SDOH 2020-11-15 2020-11-15 4 University o f Financial 00:00:00 00:00:00 [place] [facility] History SDOH Food 2020-11-15 2020-11-15 1 Univers ity of Worry 00:00:00 00:00:00 [place] [facility] History SDOH Food 2020-11-15 2020-11-15 1 Univers ity of Scarcity 00:00:00 00:00:00 [place] [facility] History SDOH 2020-11-15 2020-11-15 2 University o f Transport Med 00:00:00 00:00:[address] [facility] al Branch History KSOH 2020-11-15 2020-11-15 2 [facility] o f Transport Non-Med 00:00:00 00:00:00 [facility] Cigarettes smoked 2020-11-15 2020-11-15 Univers ity of current (pack per 00:00:00 00:00:00 [facility] ) - Reported Branch Cigarette 2020-11-15 2020-11-15 University of pack-years 00:00:00 00:00:00 [facility] Tobacco use and 2020-11-15 2020-11-15 Never used Universit y of exposure 00:00:00 00:00:00 [facility] Alcohol intake 2020-11-15 2020-11-15 Current drinker Unive rsity of 00:00:00 00:00:00 of alcohol [facility] (finding) [place] Smoking Status Start Date Stop Date Source Former smoker 2020-11-15 00:00:00 2020-11-15 00:00:00 Universi ty of [facility] Medications Ordered Filled Start Stop Current Ordering [...] by ity of tablet 21:24: mouth at [place] [address] bedtime. Medical Branch hydrALAZINE 0 Yes 25mg Take 25 mg Univers 25 mg 1-25 by mouth 2 ity of tablet 21:24: (two) [place] [address] times Medical daily as Branch needed (SBP >170 and/or DBP >100). lisinopriL 0 Yes 20mg Take 20 mg U nivers 20 mg 1-25 by mouth ity of tablet 21:24: daily. [place] [address] Medical Branch Melatonin 5 2020-0 Yes 5mg Take 5 mg U nivers mg Cap 1-25 by mouth ity of 21:24: at [place] [address] bedtime. Medical Branch metoprolol Yes 50mg Take 50 mg U nivers tartrate 1-25 by mouth 2 ity o f (LOPRESSOR) 21:24: (two) [place] 50 mg 51 times Medical tablet daily. Branch NIFEdipine Yes 60mg Take 60 mg U nivers ER 60 mg 1-25 by mouth 2 ity o f tablet 21:24: (two) [place] [address] times Medical daily. Branch omeprazole 0 Yes 20mg Take 20 mg U nivers 20 mg 1-25 by mouth ity of capsule 21:24: daily. [place] [address] Medical Branch oxybutynin 0 Yes 5mg Take 5 mg Un osmar chloride 5 1-25 by mouth 3 ity of mg tablet 21:24: (three) [place] [address] times Medical daily. Branch linaGLIPtin 0 Yes 5mg Take 5 mg U nivers (TRADJENTA) 1-25 by mouth ity of 5 mg tablet 21:24: [place]. [place] traMADoL 50 0 Yes 50mg Take 50 mg Univers mg tablet 1-25 by mouth 2 ity of 21:24: (two) [place] [address] times Medical daily. Branch ascorbic 2020-0 Yes 500mg Take 500 Univ ers acid, 1-25 mg by ity of vitamin C, 21:24: mouth [place] (VITAMIN C) 51 daily. Medica l 500 mg Branch tablet Zinc 0 Yes 220mg Take 220 Univers Sulfate 220 1-25 mg by ity of mg Tab 21:24: mouth [place] [address] daily. Medical Branch traMADoL 2020-0 2021- No 50mg 50 mg, Univer s (ULTRAM) 11-17- Oral, ity of tablet 50 15:32: 15:31 Q8HPRN, [place] mg 42 :42 Starting Medical [facility] 11/17/20 at 0932, Until 11/19/20 at 0931, Routine, Pain (scale 4-6) cefTRIAXone Yes 1000mg 1,000 mg, Univers (ROCEPHIN) 11-17 IV ity of 1,000 mg in 15:30: Piggyback, [place] NaCl 0.9% 00 Q24H ABX, Medic al (NS) 50 mL First dose [facility] MINI-BAG on [facility] 11/17/20 at 0930, Until Discontinu ed, 50 mL
R willa for Anti-Infec tive: Empiric Therapy for Suspected Infection< br>Empiric Therapy Site: Urine
D uration of therapy: 72 hours zinc Yes 220mg 220 mg, Univers sulfate 11-17 Oral, ity of (ORAZINC) 15:00: DAILY, [place] capsule 220 00 First dose Me dical mg on [facility] 11/17/20 at 0900, Until Discontinu ed omeprazole Yes 20mg 20 mg, Unive rs (PRILOSEC) 11-17 Oral, ity of capsule 20 15:00: DAILY, [place] mg 00 First dose Medical on [facility] 11/17/20 at 0900, Until Discontinu ed, Routine docusate Yes 100mg 100 mg, Unive rs (COLACE) 11-17 Oral, ity of capsule 100 15:00: DAILY, [place] mg 00 First dose Medical on [facility] 11/17/20 at 0900, Until Discontinu ed, Routine aspirin Yes 81mg 81 mg, Univers chewable 11-17 Oral, ity of tablet 81 15:00: DAILY, [place] mg 00 First dose Medical on [facility] 11/17/20 at 0900, Until Discontinu ed, Routine ascorbic Yes 500mg 500 mg, Unive rs acid 11-17 Oral, ity of (vitamin C) 15:00: [place], [place] (VITAMIN C) 00 First dose Me dical tablet 500 on [facility] 11/17/20 at 0900, Until Discontinu ed, Routine melatonin 2021-0 Yes 6mg 6 mg, Univers (MELATIN) 1-23 Oral, QHS, ity of tablet 6 mg 03:00: First dose [place] 00 on Thu [facility] 11/16/20 at Branch 2100, Until Discontinu [...] mg 02:00: First dose 00 on Thu [facility] 11/16/20 at Branch 2000, Until Discontinu ed, Routine atorvastati 202-0 Yes 20mg 20 mg, Univ ers n (LIPITOR) - Oral, QPM, it y of tablet 20 23:00: First dose [place] mg 00 on Thu [facility] 11/16/20 at Branch 1700, Until Discontinu ed, Routine oxybutynin 2020-0 Yes 5mg 5 mg, Univer s chloride - Oral, TID, ity o f (DITROPAN) 20:00: First dose [place] tablet 5 mg 00 on Thu Medica l 11/16/20 at Branch 1400, Until Discontinu ed, Routine divalproex 2021-0 Yes 250mg 250 mg, Uni vers ER - Oral, ity of (DEPAKOTE 18:30: Q24H, [place] ER) 24 hr 00 First dose Medi [...] ed, Routine NAPROXEN 2020- No Take by [facility] ers ORAL 11-16 mouth. ity of 17:27: 00:00 [place] 32 :00 [facility] Branch hydrALAZINE Yes 25mg 25 mg, [facility] ers (APRESOLINE 11-16 Oral, ity of ) tablet 25 17:25: BIDPRN, [place] mg 29 Starting Medical [facility] 11/16/20 at 1125, Until Discontinu ed, Routine, SBP >170 and/or DBP >100 enoxaparin Yes 40mg 40 mg, [facility] rs (LOVENOX) 11-15 Subcutaneo ity of injection 23:00: [place], DAILY, [place] 40 mg 00 First dose Medical on [facility] Branch 11/15/20 at 1700, Until Discontinu ed, Routine docusate 2020- No 100mg 100 mg, [facility] ers (COLACE) 11-15 Oral, ity of capsule 100 15:00: 17:28 DAILY, [place] mg 00 :05 First dose Medical on [facility] Branch 11/15/20 at 0900, Until Discontinu ed, Routine Polyethylen No 17g 17 g, [facility] e Glycol 11-15 Oral, ity of 3350 15:00: 15:13 DAILY, 1 [place] (MIRALAX) 00 :00 dose, Medical powder 17 g First dose Br anch on [facility] 11/15/20 at 0900, Routine piperacilli 2020- No 3.375g 3.375 g, Univers n-tazobacta 11-15 IV ity of m (ZOSYN) 14:00: 14:15 [place]back, [place] 3.375 g in 00 :39 Q6H ABX, Medic al NaCl 0.9% First dose Bran ch (NS) 100 mL (after MINI-BAG last reorder) on [facility] 11/15/20 at 0800, Until Discontinu ed, [...] Glycol 11-15 Oral, ity of 3350 10:47: [id number], [place] (MIRALAX) 45 Starting Medica l powder 17 [...] IV ity of (D50W) 10:42: Push, PRN, [place] injection 36 Starting Medica l 25 mL [...] 11-15 Oral, ity of (TYLENOL) 10:42: Q6HPRN, [place] tablet 650 06 Starting Medic al mg Claudine [place] 11/15/20 at 0442, Until Discontinu ed, Routine, Pain (scale 1-3) piperacilli 2020- No 3.375g 3.375 g, Univers n-tazobacta 11-15 IV ity of m (ZOSYN) 08:15: 07:54 [place]back, [place] 3.375 g in 00 :00 ONCE, 1 Medica l NaCl 0.9% dose, [facility] Branc h (NS) 100 mL 11/15/20 at MINI-BAG 0215, 100 mL
Reas on for Anti-Infec tive: Documented Infection< br>Documen arnoldo Infection Site: Abdominal< br>Duratio n of Therapy: Other (see Comments) ondansetron 2020- No 4mg 4 mg, Slow Univers (ZOFRAN 11-15 IV Push, ity of (PF)) 07:30: 06:38 ONCE, 1 [place] injection 4 00 :00 dose, Claudine Med [...] 2,000 mL 00 :00 IV Medical Infusion, [place] ONCE, 1 dose, Claudine 11/15/20 at 0115, TONI NaCl 0.9% 2020- No 1000mL at 999 Uni vers (NS) bolus 11-15 mL/hr, ity of infusion 06:30: 09:07 1,000 mL, [place] 1,000 mL 00 :00 IV Medical Infusion, [place] ONCE, 1 dose, Claudine 11/15/20 at 0030, [...] 17:26:00 126 mm[Hg] Univer sity of pressure [facility] Diastolic blood 2020-11-19 17:26:00 71 mm[Hg] Unive rsity of pressure [facility] Heart rate 2020-11-19 17:26:00 60 /min [facility] Body temperature 2020-11-19 17:26:00 36.11 Tanika [facility] Respiratory rate 2020-11-19 17:26:00 18 /min [facility] Oxygen saturation in 2020-11-19 17:26:00 95 /min [facility] Arterial blood by [facility] Pulse oximetry Branch Body weight 2020-11-19 09:42:00 107.457 kg [facility] BMI 2020-11-19 09:42:00 33.99 kg/m2 [facility] Body height 2020-11-15 10:45:00 177.8 cm [facility] WEIGHT 2020-08-07 06:00:00 117 kg WEIGHT 2020-08-06 06:00:00 117.4 kg HEIGHT 2020-08-05 12:30:00 170.2 cm WEIGHT 2020-08-05 12:30:00 121.74 kg Procedures Procedure Date / Time Performing Clinician Source Performed CBC WITH DIFF 2020-11-19 11:39:[address] [facility] BASIC METABOLIC PANEL (NA, 2020-11-19 09:39:00 Edionwe, [facility] K, CL, CO2, GLUCOSE, BUN, Medica l Branch CREATININE, [place]) BASIC METABOLIC PANEL (NA, 2020-11-18 09:29:00 Edionwe, [facility] K, CL, CO2, GLUCOSE, BUN, Medica l Branch CREATININE, CA) CBC WITH DIFF 2020-11-18 09:29:[address] [facility] LACTIC ACID WHOLE BLOOD 2020-11-18 09:29:[address] [facility] BASIC [facility]ABOLIC PAN[facility] (NA, 2020-11-17 10:43:00 Edionnestor, [facility] K, CL, CO2, GLUCOSE, BUN, Medica l Branch CREATININE, CA) CBC WITH DIFF 2020-11-17 10:43:[address] [facility] POCT GLUCOSE (AUTOMATED) 2020-11-16 22:33:00 Bryant [facility] POCT GLUCOSE (AUTOMATED) 2020-11-16 17:20:00 Deborah Hurtado [facility] US RETROPERITONEAL LIMITED 2020-11-16 15:34:20 Maury Desai [facility] POCT GLUCOSE (AUTOMATED) 2020-11-16 13:27:00 [facility] BASIC METABOLIC PANEL (NA, 2020-11-16 09:19:00 Edionnestor, [facility] K, CL, CO2, GLUCOSE, BUN, Medica l Branch CREATININE, CA) CBC WITH DIFF 2020-11-16 09:19:[address] [facility] GLYCOSYLATED HEMOGLOBIN 2020-11-16 09:19:00 Mell Hernandez [facility] (A1C) [facility] POCT GLUCOSE (AUTOMATED) 2020-11-15 22:57:00 BryantRamirezbelen [facility] POCT GLUCOSE (AUTOMATED) 2020-11-15 17:37:00 Bryant Ramirezbelen [facility] POCT GLUCOSE (AUTOMATED) 2020-11-15 13:52:00 Bryant Ramirezbelen [facility] LACTIC ACID WHOLE BLOOD 2020-11-15 11:04:00 Jessica Enamorado [facility] CT ABDOMEN PELVIS WO 2020-11-15 07:18:39 Sharon Claros [facility] CONTRAST [facility] BLOOD CULTURE SCREEN 2020-11-15 06:36:00 Sharon Claros [facility] URINALYSIS 2020-11-15 06:36:00 Jessica Enamorado [facility] URINE CULTURE 2020-11-15 06:36:00 Jessica Enamorado [facility] COVID-19 (ID NOW RAPID 2020-11-15 06:36:00 Jessica Enamorado [facility] TESTING) [facility] LAB ONLY COVID 2020-11-15 06:36:00 Jessica Enamorado [facility] INTERPRETATION [facility] COMP. METABOLIC PANEL 2020-11-15 06:33:00 Jessica Enamorado [facility] ([id number]) [facility] CBC WITH DIFF 2020-11-15 06:33:00 Jessica Enamorado [facility] LACTIC ACID WHOLE BLOOD 2020-11-15 06:32:00 Jessica Enamorado [facility] Encounters Start End Encounter Admission Attending Care Care Encounter Source Date/Time Date/Time Type Type Clinicians Facility Department ID 2020-08-05 Inpatient ER DEONDRE MERAZ Cardiac ICU [id number] SLE 11:54:00 BONITA 2021-01-07 2021-01-07 Outpatient KNOW, LYDIABM OPLA [id number] [facility] 02:05:00 02:05:00 DOES_NOT [id number] [facility] 2020-11-15 2020-11-19 [facility] Sharon Claros [facility] [id number] Univers 00:08:00 15:21:00 Encounter Deborah Hurtado [id number] ity of Maury Desai [id number] [facility] [id number] [facility] 081 Branch 2020-11-15 2020-11-15 Emergency X CLAROS, [facility] ERT [id number] Univers 00:08:00 00:08:00 [facility] 2020-11-01 2020-11-01 Outpatient KNOW, [facility] OPLA [id number] [facility] 09:19:00 09:19:00 DOES_NOT [id number] [facility] Results Test Description Test Time Test Comments [...] >3 months. [Automa arnoldo message] The system Zentila generated this result tra nsmitted reference range : >=60. The reference range was not used to interpret th is result as normal/abnormal . CREATININE (test code = 1.60 mg/dL 0.7-1.3 H CREAT) BUN/CREATININE RATIO (test 23.4 10-20 H code = BUN/CREA) CALCIUM (test code = CA) 8.3 mg/dL 8.5-10.1 L CBC with [id number] 12:32:00 Test Item Value Reference Range Interpretation [...] RDW-SD (test code = 46.9 fL 38.5-51.6 67591-9) RDW-CV (test code = 15.2 % 12.1-15.4 788-0) PLT (test code = See_Comment [Automated 777-3) message] The sy stem which generated this result transmitted reference range : 150 - 328 10*3/ ?L. The reference r alanna was not used to interpret this result as normal/abnormal . MPV (test code = 9.9 fL 9.8-13 29334-7) NRBC/100 WBC (test See_Comment [Automat ed code = 0357799855) message] The system which generated this result transmitted reference range : 0.0 - 10.0 /100 WBCs. The refer ence range was not u sed to interpret th is result as normal/abnormal . NRBC x10^3 (test code <0.01 See_Comment [Auto mated = 5739601415) message] The s ystem which generated this result transmitted reference range : 10*3/?L. The reference range was not used to interpret this result as normal/abnormal . GRAN MAT (NEUT) % 61.2 % (test code = 770-8) IMM GRAN % (test code 0.30 % = 8253183511) LYMPH % (test code = 21.4 % 736-9) MONO % (test code = 12.2 % 5905-5) EOS % (test code = 4.3 % 713-8) BASO % (test code = 0.6 % 706-2) GRAN MAT x10^3(ANC) 3.79 10*3/uL 1.99-6.95 (test code = 1418121627) IMM GRAN x10^3 (test <0.03 0-0.06 code = 1938805712) LYMPH x10^3 (test code 1.33 10*3/uL 1.09-3.23 = 731-0) MONO x10^3 (test code 0.76 10*3/uL 0.36-1.02 = 742-7) EOS x10^3 (test code = 0.27 10*3/uL 0.06-0.53 711-2) BASO x10^3 (test code 0.04 10*3/uL 0.01-0.09 = 704-7) Lab Interpretation Abnormal (test code = 46322-2) [facility] Met[facility] Panel (NA, K, CL, CO2, GLUCOSE, BUN, CREATININE, CA)2020-11-19 11:37:00 Test Item Value Reference Range Interpretation Comments NA (test code = 140 mmol/L 135-145 7159198262) K (test code = 4.0 mmol/L 3.5-5 1565948419) CL (test code = 103 mmol/L 98-108 4423835794) CO2 TOTAL (test code = 27 mmol/L 23-31 3417467632) AGAP (test code = 2-16 9940706005) BUN (test code = 32 mg/dL 7-23 H 0127232071) GLUCOSE (test code = 88 mg/dL 70-110 6058976431) CREATININE (test code = 0.95 mg/dL 0.6-1.25 9568711870) CALCIUM (test code = 8.5 mg/dL 8.6-10.6 L 7366158903) eGFR Calculation mL/min/1.73m2 (Non-) (test code = 7292735980) eGFR Calculation mL/min/1.73m2 () (test code = 8978932908) CHANDRIKA (test code = CHANDRIKA) Association of [...] tests). Lab Interpretation Abnormal (test code = 19854-7) [facility] COVID [id number] 02:39:00COVID DMT InterpretationInterpretation/Recommendations: Molecular NAAT Tests for [...] testing the patient has had at [facility], including molecular NAATtesting (more commonly known as PCR testing and Rapid ID Now testing) and antibody testing. It does not take into account any testing that a patient has had outside of the [facility] medical record. [facility] LABORATORY SERVICESCOVID [id number] Rapid ID NOW (no units) ? ? Date ? Value ? 11/15/2020 ? Not Detected ? [facility] Met[facility] Panel (NA, K, CL, CO2, GLUCOSE, BUN, CREATININE, CA) 2020-11-18 12:03:00 Test Item Value Reference Range Interpretation Comments NA (test code = 138 mmol/L 135-145 7474871081) K (test code = 3.6 mmol/L 3.5-5 8738099644) CL (test code = 104 mmol/L 98-108 0167236295) CO2 TOTAL (test code = 26 mmol/L 23-31 6783149006) AGAP (test code = 2-16 7005217869) BUN (test code = 27 mg/dL 7-23 H 7694206193) GLUCOSE (test code = 80 mg/dL 70-110 5580941575) CREATININE (test code = 1.07 mg/dL 0.6-1.25 3732561951) CALCIUM (test code = 8.5 mg/dL 8.6-10.6 L 1819757741) eGFR Calculation mL/min/1.73m2 (Non-) (test code = 9994205369) eGFR Calculation mL/min/1.73m2 () (test code = 5696076679) CHANDRIKA (test code = CHANDRIKA) Association of [...] tests). Lab Interpretation Abnormal (test code = 65691-2) [facility] with [id number] 10:58:00 Test Item Value Reference Range Interpretation Comments WBC (test code = See_Comment [Automated 0990-2) message] The sy stem which generated this [...] RDW-SD (test code = 47.4 fL 38.5-51.6 53967-5) RDW-CV (test code = 15.3 % 12.1-15.4 788-0) PLT (test code = See_Comment [Automated 777-3) message] The sy stem which generated this result transmitted reference range : 150 - 328 10*3/ ?L. The reference r alanna was not used to interpret this result as normal/abnormal . MPV (test code = 11.5 fL 9.8-13 24984-6) NRBC/100 WBC (test See_Comment [Automat ed code = 4744842497) message] The system which generated this result transmitted reference range : 0.0 - 10.0 /100 WBCs. The refer ence range was not u sed to interpret th is result as normal/abnormal . NRBC x10^3 (test code <0.01 See_Comment [Auto mated = 3309918961) message] The s ystem which generated this result transmitted reference range : 10*3/?L. The reference range was not used to interpret this result as normal/abnormal . GRAN MAT (NEUT) % 58.5 % (test code = 770-8) IMM GRAN % (test code 0.30 % = 3882796143) LYMPH % (test code = 23.6 % 736-9) MONO % (test code = 13.2 % 5905-5) EOS % (test code = 3.8 % 713-8) BASO % (test code = 0.6 % 706-2) GRAN MAT x10^3(ANC) 4.00 10*3/uL 1.99-6.95 (test code = 3627099374) IMM GRAN x10^3 (test <0.03 0-0.06 code = 0605513445) LYMPH x10^3 (test code 1.61 10*3/uL 1.09-3.23 = 731-0) MONO x10^3 (test code 0.90 10*3/uL 0.36-1.02 = 742-7) EOS x10^3 (test code = 0.26 10*3/uL 0.06-0.53 711-2) BASO x10^3 (test code 0.04 10*3/uL 0.01-0.09 = 704-7) Lab Interpretation Abnormal (test code = 61604-0) [facility] Whole [id number] 09:41:00 Test Item Value Reference Range Interpretation Comments LACTIC ACID (test code = 1.17 mmol/L 3932571988) [facility] Metabolic Panel (NA, K, CL, CO2, GLUCOSE, BUN, CREATININE, CA)2020-11-17 12:28:00 Test Item Value Reference Range Interpretation Comments NA (test code = 139 mmol/L 135-145 5954292673) K (test code = 3.6 mmol/L 3.5-5 9072119453) CL (test code = 103 mmol/L 98-108 5633470218) CO2 TOTAL (test code = 28 mmol/L 23-31 2218524597) AGAP (test code = 2-16 5534523999) BUN (test code = 21 mg/dL 7-23 6427624495) GLUCOSE (test code = 88 mg/dL 70-110 6405594148) CREATININE (test code = 1.14 mg/dL 0.6-1.25 9949877258) CALCIUM (test code = 8.2 mg/dL 8.6-10.6 L 9227427410) eGFR Calculation mL/min/1.73m2 (Non-) (test code = 3758679384) eGFR Calculation mL/min/1.73m2 () (test code = 1969896756) CHANDRIKA (test code = CHANDRIKA) Association of [...] tests). Lab Interpretation Abnormal (test code = 74377-7) [facility] with [id number] 12:10:00 Test Item Value Reference Range Interpretation Comments WBC (test code = See_Comment [Automated 7610-2) message] The sy stem which generated this result transmitted reference range : 4.20 - 10.70 10*3/?L. The reference range was not used to interpret this result as normal/abnormal . RBC (test code = See_Comment L [Automated 558-8) message] The sy stem which generated this [...] RDW-SD (test code = 47.8 fL 38.5-51.6 18501-4) RDW-CV (test code = 15.3 % 12.1-15.4 788-0) PLT (test code = See_Comment [Automated 777-3) message] The sy stem which generated this result transmitted reference range : 150 - 328 10*3/ ?L. The reference r alanna was not used to interpret this result as normal/abnormal . MPV (test code = 10.2 fL 9.8-13 79496-1) NRBC/100 WBC (test See_Comment [Automat ed code = 3420448474) message] The system which generated this result transmitted reference range : 0.0 - 10.0 /100 WBCs. The refer ence range was not u sed to interpret th is result as normal/abnormal . NRBC x10^3 (test code <0.01 See_Comment [Auto mated = 5889644528) message] The s ystem which generated this result transmitted reference range : 10*3/?L. The reference range was not used to interpret this result as normal/abnormal . GRAN MAT (NEUT) % 55.3 % (test code = 770-8) IMM GRAN % (test code 0.30 % = 0474444301) LYMPH % (test code = 25.7 % 736-9) MONO % (test code = 15.0 % 5905-5) EOS % (test code = 3.1 % 713-8) BASO % (test code = 0.6 % 706-2) GRAN MAT x10^3(ANC) 3.56 10*3/uL 1.99-6.95 (test code = 9529298147) IMM GRAN x10^3 (test <0.03 0-0.06 code = 2453638497) LYMPH x10^3 (test code 1.66 10*3/uL 1.09-3.23 = 731-0) MONO x10^3 (test code 0.97 10*3/uL 0.36-1.02 = 742-7) EOS x10^3 (test code = 0.20 10*3/uL 0.06-0.53 711-2) BASO x10^3 (test code 0.04 10*3/uL 0.01-0.09 = 704-7) Lab Interpretation Abnormal (test code = 36114-3) [facility] GLUCOSE (AUTOMATED)2020-11-16 22:48:00 Test Item Value Reference Range Interpretation Comments POCT GLU (test code = 0935689868) 127 mg/dL 70-110 H Lab Interpretation (test code = Abnormal 96543-6) [facility] (A1C)2020-11-16 19:30:00 Test Item Value Reference Range Interpretation Comments HGB A1C (test code = 5.2 % 4-6 4548-4) CHANDRIKA (test code = CHANDRIKA) %A1C (NGSP) Interpretation (ADA)4.8-5.6 ? ? Normal or (Non-Diabetic Range)5.7-6.4 ? ? Increased Risk (Pre-Diabetic)>6.5 ?Diabetes Indicated Lab Interpretation Normal (test code = 60339-2) [facility] GLUCOSE (AUTOMATED)2020-11-16 17:42:00 Test Item Value Reference Range Interpretation Comments POCT GLU (test code = 4542782442) 115 mg/dL 70-110 H Lab Interpretation (test code = Abnormal 43206-8) [facility] RETROPERITONEAL [id number] 15:42:20 Essentially unremarkable renal ultrasound. No hydronephrosis [...] not imaged.IMPRESSIONEssentially unremarkable renal ultrasound. No hydronephrosis ornephrolithiasis.[facility])2020-11-16 13:54:00 Test Item Value Reference Range Interpretation Comments POCT GLU (test code = 2733178771) 99 mg/dL 70-110 Lab Interpretation (test code = Normal 78930-4) [facility] (NA, K, CL, CO2, GLUCOSE, BUN, CREATININE, CA)2020-11-16 10:47:00 Test Item Value Reference Range Interpretation Comments NA (test code = 139 mmol/L 135-145 4393789904) K (test code = 3.8 mmol/L 3.5-5 3634279902) CL (test code = 104 mmol/L 98-108 5743374632) CO2 TOTAL (test code = 27 mmol/L 23-31 8317111723) AGAP (test code = 2-16 1830453331) BUN (test code = 20 mg/dL 7-23 8411174941) GLUCOSE (test code = 95 mg/dL 70-110 5184121328) CREATININE (test code = 1.20 mg/dL 0.6-1.25 1103810122) CALCIUM (test code = 8.2 mg/dL 8.6-10.6 L 1432875494) eGFR Calculation mL/min/1.73m2 (Non-) (test code = 7550125293) eGFR Calculation mL/min/1.73m2 () (test code = 3248675009) CHANDRIKA (test code = CHANDRIKA) Association of [...] tests). Lab Interpretation Abnormal (test code = 14952-4) [facility] with [id number] 10:15:00 Test Item Value Reference Range Interpretation Comments WBC (test code = See_Comment [Automated 7090-2) message] The sy stem which generated this [...] RDW-SD (test code = 47.2 fL 38.5-51.6 13764-0) RDW-CV (test code = 15.3 % 12.1-15.4 788-0) PLT (test code = See_Comment [Automated 777-3) message] The sy stem which generated this result transmitted reference range : 150 - 328 10*3/ ?L. The reference r alanna was not used to interpret this result as normal/abnormal . MPV (test code = 9.8 fL 9.8-13 89193-2) NRBC/100 WBC (test See_Comment [Automat ed code = 2513266161) message] The system which generated this result transmitted reference range : 0.0 - 10.0 /100 WBCs. The refer ence range was not u sed to interpret th is result as normal/abnormal . NRBC x10^3 (test code <0.01 See_Comment [Auto mated = 5295515289) message] The s ystem which generated this result transmitted reference range : 10*3/?L. The reference range was not used to interpret this result as normal/abnormal . GRAN MAT (NEUT) % 68.2 % (test code = 770-8) IMM GRAN % (test code 0.30 % = 4820175619) LYMPH % (test code = 17.6 % 736-9) MONO % (test code = 10.7 % 5905-5) EOS % (test code = 2.8 % 713-8) BASO % (test code = 0.4 % 706-2) GRAN MAT x10^3(ANC) 5.04 10*3/uL 1.99-6.95 (test code = 5738647667) IMM GRAN x10^3 (test <0.03 0-0.06 code = 1685080374) LYMPH x10^3 (test code 1.30 10*3/uL 1.09-3.23 = 731-0) MONO x10^3 (test code 0.79 10*3/uL 0.36-1.02 = 742-7) EOS x10^3 (test code = 0.21 10*3/uL 0.06-0.53 711-2) BASO x10^3 (test code 0.03 10*3/uL 0.01-0.09 = 704-7) Lab Interpretation Abnormal (test code = 42204-6) [facility] GLUCOSE (AUTOMATED)2020-11-15 23:02:00 Test Item Value Reference Range Interpretation Comments POCT GLU (test code = 8416628884) 141 mg/dL 70-110 H Lab Interpretation (test code = Abnormal 07035-7) [facility] GLUCOSE (AUTOMATED)2020-11-15 17:50:00 Test Item Value Reference Range Interpretation Comments POCT GLU (test code = 1642546568) 117 mg/dL 70-110 H Lab Interpretation (test code = Abnormal 66855-5) [facility] GLUCOSE (AUTOMATED)2020-11-15 14:06:00 Test Item Value Reference Range Interpretation Comments POCT GLU (test code = 9745712202) 154 mg/dL 70-110 H Lab Interpretation (test code = Abnormal 07657-2) [facility] ABDOMEN PELVIS WO [id number] 13:55:56 Moderate circumferential bladder wall thickening, out [...] reviewed this study and agree with theabove report.[facility] HospitalLactic Acid Whole [id number] 11:17:00 Test Item Value Reference Range Interpretation Comments LACTIC ACID (test code = 2.02 mmol/L 6761440650) [facility]UR[facility]IS2021-[facility] 07:24:00 Test Item Value Reference Range Interpretation Comments APPEARANCE (test code = Cloudy Clear A 4116290406) COLOR (test code = Nieves Yellow A 8096785394) PH (test code = 4.8-8.0 3799043850) SP GRAVITY (test code = 1.003-1.030 3591875655) GLU U QUAL (test code = Normal Normal 8026522208) BLOOD (test code = Negative Negative 0537475878) KETONES (test code = Negative Negative 7418768558) PROTEIN (test code = 500 mg/dL Negative A 2887-8) UROBILIN (test code = Normal Normal 9249377850) BILIRUBIN (test code = Negative Negative 9287645091) NITRITE (test code = Negative Negative 9894999895) LEUK BRAD (test code = 500/uL Negative A 6638670368) RBC/HPF (test code = See_Comment [Autom ated message] 5115123400) The system Zentila generated this result transmit arnoldo reference range : 0 - 3 HPF. The refe rence range was not u sed to interpret th is result as normal/abnormal . WBC/HPF (test code = >182 See_Comment H [Autom ated message] 3010348883) The system Zentila generated this result transmit arnoldo reference range : 0 - 5 HPF. The refe rence range was not u sed to interpret th is result as normal/abnormal . BACTERIA (test code = Many Negative A 2886835954) MUCOUS (test code = Slight Negative LPF A 7419233409) WBC CLUMPS (test code = See_Comment H [Au tomated message] 3772378193) The system Zentila generated this result transmit arnoldo reference range : <=1 HPF. The refere nce range was not u sed to interpret th is result as normal/abnormal . CA OXALATE (test code = See_Comment [Au tomated message] 0983088250) The system whic h generated this result transmit arnoldo reference range : <=1 HPF. The refere nce range was not u sed to interpret th is result as normal/abnormal . Lab Interpretation (test Abnormal code = 69305-7) [facility] HospitalCOVID[facility] (ID NOW RAPID TESTING)2020-11-15 07:03:00 Test Item Value Reference Range Interpretation Comments SARS-CoV-2 Rapid ID NOW Not Detected Not Detected (test code = 77977-0) CHANDRIKA (test code = CHANDRIKA) ID NOW COVID-19 Assay is an isothermal nucleic acid amplification test intended for the qualitative detection of nucleic acid from SARS-CoV-2 viral RNA in nasopharyngeal (SL[place] CUTTER) specimens. It is used under Emergency Use [...] indicated. Lab Interpretation Normal (test code = 63243-5) [facility]. METABOLIC PANEL (10924)2020-11-15 06:59:00 Test Item Value Reference Range Interpretation Comments NA (test code = 143 mmol/L 135-145 3123923465) K (test code = 4.1 mmol/L 3.5-5 3048627699) CL (test code = 104 mmol/L 98-108 7959198657) CO2 TOTAL (test code = 26 mmol/L 23-31 1955563434) AGAP (test code = 2-16 7687019616) BUN (test code = 25 mg/dL 7-23 H 1633657474) GLUCOSE (test code = 168 mg/dL 70-110 H 7792502073) CREATININE (test code = 1.24 mg/dL 0.6-1.25 7012114889) TOTAL BILI (test code = 1.2 mg/dL 0.1-1.1 H 4952615442) CALCIUM (test code = 9.2 mg/dL 8.6-10.6 0216862939) T PROTEIN (test code = 8.2 g/dL 6.3-8.2 2692620142) ALBUMIN (test code = 4.1 g/dL 3.5-5 2251045398) ALK PHOS (test code = 120 U/L 34-122 5726828561) ALTv (test code = 28 U/L 5-50 1742-6) AST(SGOT) (test code = 41 U/L 13-40 H 7253154445) eGFR Calculation mL/min/1.73m2 (Non-) (test code = 3820256364) eGFR Calculation mL/min/1.73m2 () (test code = 5125143553) CHANDRIKA (test code = CHANDRIKA) Association of [...] tests). Lab Interpretation Abnormal (test code = 35862-7) [facility] WITH [id number] 06:45:00 Test Item Value Reference Range Interpretation [...] RDW-SD (test code = 48.8 fL 38.5-51.6 50328-2) RDW-CV (test code = 15.5 % 12.1-15.4 H 788-0) PLT (test code = See_Comment [Automated 777-3) message] The system which generated this result transmit arnolod reference range : 150 - 328 10*3/ ?L. The reference range was not u sed to interpret th is result as normal/abnormal . MPV (test code = 9.5 fL 9.8-13 L 48712-4) NRBC/100 WBC (test See_Comment [Automat ed code = 8280747968) message] The system which generated this result transmit arnoldo reference range : 0.0 - 10.0 /100 WBCs. The reference range was not used to interpret this result as normal/abnormal . NRBC x10^3 (test code <0.01 See_Comment [Auto mated = 6832745351) message] The system which generated this result transmit arnoldo reference range : 10*3/?L. The reference range was not used to interpret this result as normal/abnormal . GRAN MAT (NEUT) % 79.9 % (test code = 770-8) IMM GRAN % (test code 0.70 % = 6183217132) LYMPH % (test code = 8.3 % 736-9) MONO % (test code = 9.5 % 5905-5) EOS % (test code = 1.1 % 713-8) BASO % (test code = 0.5 % 706-2) GRAN MAT x10^3(ANC) 12.19 10*3/uL 1.99-6.95 H (test code = 1007931874) IMM GRAN x10^3 (test 0.10 10*3/uL 0-0.06 H code = 6804395896) LYMPH x10^3 (test code 1.27 10*3/uL 1.09-3.23 = 731-0) MONO x10^3 (test code 1.45 10*3/uL 0.36-1.02 H = 742-7) EOS x10^3 (test code = 0.17 10*3/uL 0.06-0.53 711-2) BASO x10^3 (test code 0.08 10*3/uL 0.01-0.09 = 704-7) Lab Interpretation Abnormal (test code = 06098-8) [facility] HospitalL[facility] Whole [id number] 06:41:00 Test Item Value Reference Range Interpretation Comments LACTIC ACID (test code = 3.45 mmol/L 5485188189) [facility] HospitalBAS[facility] METABOLIC [id number] 09:49:00 Test Item Value Reference Range Interpretation [...] formula.Chronic kidney disease is defined as [facility] kidney damageor GFR <60 mL/min/1.73 m2 for >3 months. CREATININE (test code 0.90 mg/dL 0.7-1.3 N = CREAT) BUN/CREATININE RATIO 18.4 10-20 N (test code = BUN/CREA) CALCIUM (test code = 8.3 mg/dL 8.5-10.1 L CA) BASIC METABOLIC [id number] 09:42:00 Test Item Value Reference Range Interpretation [...] code = CA) mg/dL 8.5-10.1 CBC W/AUTO [id number] 09:32:00 Test Item Value Reference Range Interpretation [...] = 0.00 K/mm3 0.0-0.1 N NRBC#) HEMOGLOBIN [id number] 09:54:00 Test Item Value Reference Range Interpretation Comments HEMOGLOBIN A1C (BEAKER) (test code = 6.2 % 4.3-6.1 H 368) Puffer Tender ID - ADMINHEMOGLOBIN [id number] 09:45:00 Test Item Value Reference Range Interpretation Comments HEMOGLOBIN A1C (BEAKER) (test code = 6.1 % 4.3-6.1 368) Puffer Tender ID - ADMINBASIC METABOLIC [id number] 04:58:00 Test Item Value Reference Range Interpretation [...] S NOT APPLICABLE FOR DIALYSIS PATIEN TS. Puffer Tender ID - [id number] 04:58:00 Test Item Value Reference Range Interpretation Comments MAGNESIUM (BEAKER) (test code = 1.7 mg/dL 1.6-2.6 627) Puffer Tender ID - EDASICBC W/PLT COUNT & AUTO [id number] 04:36:00 Test Item Value Reference Range Interpretation [...] (BEAKER) (test code = 2801) BASIC METABOLIC [id number] 07:31:00 Test Item Value Reference Range Interpretation [...] S NOT APPLICABLE FOR DIALYSIS PATIEN TS. Puffer Tender ID - DEMOND MCBC W/PLT COUNT & AUTO [id number] 07:21:00 Test Item Value Reference Range Interpretation [...] = 2801) RAD, CHEST, 1 VIEW, NON [id number] 08:26:00Reason for exam:->post-ppmShould this be performed at the bedside?->YesFINAL REPORT CLINICAL HISTORY: post-ppm TECHNIQUE: 1 view of the chest. COMPARISON: 08/07/2020 IMPRESSION: A left chest wall pacemaker is again seen without pneumothorax. There are no new infiltrates or significant effusions. Cardiomegaly is again noted. Signed: Michelle Tariq MDReport Verified Date/Time: 08/08/2020 08:26:51 Reading Location: [facility] Radiology Reading Room BASIC METABOLIC [id number] 06:17:00 Test Item Value Reference Range Interpretation [...] S NOT APPLICABLE FOR DIALYSIS PATIEN TS. Puffer Tender ID - DEMOND MCBC W/PLT COUNT & AUTO [id number] 05:59:00 Test Item Value Reference Range Interpretation [...] = 2801) RAD, CHEST, 1 VIEW, NON [id number] 20:04:00Reason for exam:->post ppmShould this be performed at the bedside?->YesFINAL REPORT AP view of the chest dated 08/07/2020 CLINICAL INFORMATION: post ppm Comment: Heart is normal in size. Thoracic aorta is ectatic. AICD is present. Pulmonary vasculature is unremarkable. Lungs are clear. No pulmonary infiltrate or pleural effusion is present. Impression: Ectatic thoracic aorta. Signed: Jame Duckworth MDReport Verified Date/Time: 08/07/2020 20:04:22Reading Location: [address] Consult Reading Room POCT-GLUCOSE [id number] 16:15:00 Test Item Value Reference Range Interpretation Comments POC-GLUCOSE METER 132 mg/dL 70-110 H : TESTED A T [facility] 6720 (BEAKER) (test code = [place], 1538) 92323: Puffer Tender/Techni sara ID = [id number] for SALOMON KRUSE BASIC METABOLIC [id number] 06:15:00 Test Item Value Reference Range Interpretation [...] S NOT APPLICABLE FOR DIALYSIS PATIEN TS. Puffer Tender ID - PIAYA LSpecimen slightly ictericCBC W/PLT COUNT & AUTO [id number] 04:26:00 Test Item Value Reference Range Interpretation [...] PERCENT (BEAKER) (test code = 2801) PROTHROMBIN TIME/[id number] 04:18:00 Test Item Value Reference Range Interpretation [...] is2.5-3.5 for patients wiht mechanical heart valves.POCT-GLUCOSE [id number] 21:14:00 Test Item Value Reference Range Interpretation Comments POC-GLUCOSE METER 138 mg/dL 70-110 H : TESTED A T [facility] 6720 (BEAKER) (test code = ZARIA Franz [facility], 1538) 19132: Puffer Tender/Techni sara ID = [id number] for LUIS [place] CT, BRAIN, WITHOUT [id number] 18:41:00Unlisted Reason for Exam - Click Yes [...] Zahida Dobbs MDReport Verified Date/Time: 08/06/2020 18:41:07 [id number] 14:05:00 Test Item Value Reference Range Interpretation Comments MAGNESIUM (BEAKER) (test code = 1.8 mg/dL 1.6-2.6 627) Puffer Tender ID - [place] FSARS-COV2/RT-PCR ([facility])2020-08-06 13:22:00 Test Item Value Reference Range Interpretation Comments SARS-COV2/RT-PCR (test Negative Not Detected, Negative, code = 4907378) See external report for linked test SARS-COV-2 PERFORMING LAB [facility] (test code = 0938700) Negative result for this test determines that [...] 564(g) of the Act.Fact Sheet for Healthcare Providers:https://www.[employer]/sites/default/files/product/documents/Fact_Shee w_MC_Nlhtftxvs_Zoox_WEPB-MxU-5.pdfFact Sheet for Healthcare Patients:https://www.[employer]/sites/default/files/product/ documents/Qpyq_Iosbj_Qapnagca_Hkqu_VEBP-OjH-3.pdfPerforming Laboratory:[facility], [place] [address]XHZW-ZKXFZNM METER 2020-08-06 12:21:00 Test Item Value Reference Range Interpretation Comments POC-GLUCOSE METER 180 mg/dL 70-110 H : TESTED Vance Mares [facility] 6720 (BEAKER) (test code = ZARIA Franz [facility], 1538) 999[address]: Puffer Tender/Techni sara ID = [id number] for LUIS [place] BASIC METABOLIC [id number] 05:00:00 Test Item Value Reference Range Interpretation [...] S NOT APPLICABLE FOR DIALYSIS PATIEN TS. Puffer Tender ID - DEMOND MCBC W/PLT COUNT & AUTO [id number] 04:43:00 Test Item Value Reference Range Interpretation [...] PERCENT (BEAKER) (test code = 2801) TROPONIN [id number] 19:55:00 Test Item Value Reference Range Interpretation [...] failure, acidosis, acute neurological disease, and persistent tachyarrhythmia.Puffer Tender ID - RMBASIC METABOLIC PANEL 2020-08-05 19:47:00 [...] S NOT APPLICABLE FOR DIALYSIS PATIEN TS. Puffer Tender ID - RMBLOOD GAS, [id number] 19:17:00 Test Item Value Reference Range Interpretation [...] FIO2 (BEAKER) (test code = 1819) 50.0 [id number] 19:11:00 Test Item Value Reference Range Interpretation Comments MAGNESIUM (BEAKER) 2.1 mg/dL 1.6-2.6 Specimen slightly (test code = 627) hemolyzed Puffer Tender ID - RMPOCT-GLUCOSE [id number] 18:45:00 Test Item Value Reference Range Interpretation Comments POC-GLUCOSE METER 133 mg/dL 70-110 H : TESTED A T [facility] 6720 (BEAKER) (test code = ZARIA Franz [facility], 1538) 49161: Puffer Tender/Techni sara ID = [id number] for JOHN Saenz LUIS RAD, CHEST, 1 VIEW, NON [id number] 18:01:00Reason for exam:->post TVP placementShould this be [...] be >100 ug/mLOperator ID - RMCOMPREHENSIVE METABOLIC [id number] 14:03:00 Test Item Value Reference Range Interpretation [...] S NOT APPLICABLE FOR DIALYSIS PATIEN TS. Puffer Tender ID - TAHIRAROPONIN [id number] 13:59:00 Test Item Value Reference Range Interpretation [...] failure, acidosis, acute neurological disease, and persistent tachyarrhythmia.Puffer Tender ID - DAYAGB-TYPE NATRIURETIC FACTOR (BNP)2020-08-05 13:59:00 Test Item Value Reference Range Interpretation Comments B-TYPE NATRIURETIC PEPTIDE (BEAKER) 29 pg/mL 0-100 (test code = 700) Puffer Tender ID - DAYAGBLOOD GAS, [id number] 13:29:00 Test Item Value Reference Range Interpretation [...] 1819) 100.0 CBC W/PLT COUNT & AUTO [id number] 13:29:00 Test Item Value Reference Range Interpretation [...] = 2801) RAD, CHEST, 1 VIEW, NON [id number] 13:12:00Reason for exam:- >intubationShould this be performed [...] MDReport Verified Date/Time: 08/05/2020 13:12:04 Reading Location: [facility] C013T Transitional Reading Room 01:12 PM"
[2021-11-20] MEDS ORDERED: NA CHLORIDE 0.9% 2,000 ML ONE ×2 (06:27→09:38)
[2021-11-20] MEDS ORDERED: propofoL 1,000 MG/100 ML VIAL IV ONE (06:32)
[2021-11-20] MEDS ORDERED: RSI MEDICATION KIT IV ONE (06:32)
[2021-11-20] MEDS ORDERED: ACETAMINOPHEN 325 MG/SUPP PR ONE (06:43)
[2021-11-20] MEDS ORDERED: ACETAMINOPHEN 650MG/RECT SUPP PR ONE (06:43)
[2021-11-20] MEDS ORDERED: NA CHLORIDE 0.9% 100 ML ONE (06:43)
[2021-11-20] MEDS ORDERED: PIPERACIL/TAZO 3.375 GM VIAL IV ONE (06:43)
[2021-11-20] MEDS ORDERED: NOREPINEPHRINE 4mg/D5W 250mL 4 MG/250 ML BAG IV ONE ×2 (06:51→13:31)
[2021-11-20 07:03] LABS: Absolute Lymphocytes (CBC) 1.4 K/uL (0.7-4.9); Hematocrit 30.7 % (39.6-49.0); Lymphocytes % 11.6 % (15.3-44.8); MPV 7.5 fL (7.6-11.3); RBC Red Blood Cell Count 3.49 M/uL (4.33-5.43)
[2021-11-20 07:15] LABS: Protime INR 1.65
[2021-11-20 07:24] LABS: ALT/SGPT 55 U/L (12-78); AST/SGOT 81 U/L (15-37); Albumin 1.8 g/dL (3.4-5.0); Alkaline Phosphatase 98 U/L (45-117); BUN Blood Urea Nitrogen 38 mg/dL (7-18); Bicarbonate 26 mmol/L (21-32); Bilirubin Direct 0.2 mg/dL (0-0.2); Bilirubin Total 0.7 mg/dL (0.2-1.0); Creatine Phosphokinase 194 U/L (39-308); Glucose Level 175 mg/dL (74-106); Lipase 114 U/L (73-393); Potassium 3.4 mmol/L (3.5-5.1); Protein, Total 8.5 g/dL (6.4-8.2); Sodium Level 141 mmol/L (136-145)
[2021-11-20 07:32] LABS: CKMB Creatine Kinase MB < 1.0 ng/mL (1.0-3.6)
[2021-11-20 07:54] LABS: Arterial Blood Carboxyhemoglob 1.6 % (0-1.5); Blood Gas Oxyhemoglobin 91.9 % (94-97); Blood O2 Saturation 94.4 % (92-98.5)
[2021-11-20 08:20] LABS: SARS-COV-2 RT PCR NEGATIVE (NEGATIVE)
--- NOTE | 2021-11-20 08:22 | RAD REPORT ---
EXAM DESCRIPTION: CT - Head Brain Wo Cont - 11/20/2021 8:16 am CLINICAL HISTORY: DIZZINESS, fever, altered mental status COMPARISON: Head Brain Wo Cont dated 09/28/2021 TECHNIQUE: Axial 5 mm thick images of the head were obtained without IV contrast. All CT scans are performed using dose optimization technique as appropriate and may include automated exposure control or mA/KV adjustment according to patient size. FINDINGS: No intracranial hemorrhage, mass, edema or shift of mid-line structures. No acute cortical based infarction identifiable. There is no cortical edema or sulcal effacement identifiable. Patient 's atrophy pattern is advanced for age but stable from short interval 09/28/2021 imaging. Ventricles are in proportion to the volume loss. No abnormal extra-axial fluid collections. Scattered chronic is chemic changes are present. 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 Arterial tree calcifications a re present. Mastoid air cells and visualized portions of the paranasal sinuses are clear. No acute bony findings. IMPRESSION: No hemorrhage, edema or acute intracranial finding identifiable. Atrophy changes are present, advanced for age, with ventricles remaining in proportion to volume loss .
--- NOTE | 2021-11-20 08:32 | RAD REPORT ---
EXAM DESCRIPTION: RAD - Chest Single View - 11/20/2021 7:04 am CLINICAL HISTORY: sepsis, intubation COMPARISON: Pleural 10/23/2021 TECHNIQUE: AP portable chest image was obtained 11/20/2021 7:04 am . FINDINGS: Endotracheal tube is in place. Tip is top of the aortic arch 4.5 cm above the ruben. This is good positioning. Resuscitation paddle overlies the upper right abdomen. Two lead pacemaker is in place. Left lung field is clear. Medial right base opacification is probably right middle lobe atelectasis. There is airspace opacification as well in the lower right lung field that could be infectious or asp iration pneumonia. There is questionable truncation of the right mainstem bronchus when compared with the left. There could be infectious/ inflammatory debris in the bronchus. Obstructing mass is not ex cluded on this examination. Right heart border is obscured but overall no cardiomegaly is suspected. Vasculature within normal l imits. No measurable pleural effusion and no pneumothorax. No acute bony abnormality seen. Aorta is t ortuous and does appear to be prominent. Aorta is accentuated due to rotation on this examination. IMPRESSION: Suspected right lung base pneumonia and suspected right middle lobe atelectasis. Truncation of the right mainstem bronchus may be due to infectious/ inflammatory debris in the bronch us or less likely from mass lesion. Continued close follow-up is needed to determine if findings clear after medical management.
[2021-11-20 09:09] LABS: Anisocytosis 1+; Blood Morphology Comment NOTED (NOT SEEN); Platelet Estimate INCR; Polychromasia 1+; White Blood Cell Scan OK (OK)
--- NOTE | 2021-11-20 09:21 | EDPHYS ---
Physician Documentation [facility] Name: Raphael Hoyos Age: 65 yrs Sex: Male : 1955 Arrival Date: 11/20/2021 Time: 06:22 Bed 1 Private MD: ED Physician Fish Cartagena HPI: 11/20 06:42 This 65 yrs old Male presents to ER via EMS with complaints of fever, AMS. rn 06:42 The patient reports fever, that was measured at 105 degrees Fahrenheit. Onset: The rn symptoms/episode began/occurred at an unknown time. Modifying factors: there are no obvious modifying factors. Associated signs and symptoms:. Severity of symptoms: At their worst the symptoms were severe in the emergency department the symptoms are unchanged. It is unknown whether or not the patient has had similar symptoms in the past. It is unknown whether or not the patient has recently seen a physician. Patient brought in by EMS for fever and altered mental status. Unknown onset. EMS states penitentiary reported 105 temperature, oxygen in the 80s, elevated heart rate. EMS reports patient might be DNR but that family wanted patient transported and not sure of CODE STATUS. IO placed by EMS with fluids going. Patient brought in with nonrebreather. Historical: - Allergies: 06:42 No Known Allergies; bb - Immunization history:: Adult Immunizations unknown. - Social history:: Smoking status: unknown. - Family history:: not pertinent. - Hospitalizations: : No recent hospitalization is reported. - History obtained from: EMS. ROS: 06:42 Unable to obtain ROS due to altered mental status. rn 09:20 Skin: Negative for injury, rash, and discoloration. ma2 Exam: 06:42 Neuro: GCS 3 rn 06:42 Constitutional: Overweight male, shallow breathing and unresponsive to voice. Head/Face: Normocephalic, atraumatic. Eyes: Periorbital areas with no swelling, redness, or edema. ENT: Dry mucous membranes, no stridor Cardiovascular: Tachycardic, regular, no pulse deficits Respiratory: Course bilateral breath sounds with bagging, shallow breathing Abdomen/GI: Soft, nontender Back: Large sacral decubitus ulcer with some purulence noted Skin: Cool and cyanotic extremities MS/ Extremity: Cyanosis of hands and feet Vital Signs: 06:22 BP 128 / 78; Pulse 152; Resp 24 S; Temp 100.8(A); Pulse Ox 87% on Non-rebreather mask; bb Weight 99.79 kg (R); Height 6 ft. 0 in. (182.88 cm) (R); 07:10 BP 116 / 81; Pulse 128; Resp 26; Temp 104.9; Pulse Ox 100% on ETT vent; tw5 07:10 BP 111 / 88; Pulse 128; Resp 16; Pulse Ox 99% on 80% FiO2 ETT vent; petersen 07:20 BP 104 / 76; Pulse 122; Resp 16; Pulse Ox 95% on 80% FiO2 ETT vent; petersen 07:30 BP 102 / 76; Pulse 127; Resp 16; Pulse Ox 97% on 80% FiO2 ETT vent; petersen 07:30 BP 074 / 0; Pulse 123; Resp 16; Pulse Ox 98% on 80% FiO2 ETT vent; petersen 07:50 BP 83 / 46; Pulse 120; Resp 16; Pulse Ox 96% on ETT vent; petersen 08:12 BP 83 / 48; Pulse 120; Resp 16; Pulse Ox 95% on 100% FiO2 ETT vent; petersen 08:25 BP 88 / 57; Pulse 118; Resp 16; Pulse Ox 100% on 100% FiO2 ETT vent; petersen 09:24 BP 88 / 63; Pulse 127; Resp 16; Pulse Ox 100% on 100% FiO2 ETT vent; petersen 10:30 BP 77 / 61; Pulse 131; Resp 14; Pulse Ox 99% on 90% FiO2 ETT vent; petersen 11:08 BP 90 / 65; Pulse 129; Resp 14; Pulse Ox 99% on 90% FiO2 ETT vent; petersen 11:29 BP 86 / 70; Pulse 125; Resp 21; Temp 104.1(C); Pulse Ox 100% on 90% FiO2 ETT vent; ww 12:33 BP 86 / 59; Pulse 121; Resp 14; Pulse Ox 100% on 90% FiO2 ETT vent; petersen 13:51 BP 87 / 66; Pulse 129; Resp 14; Pulse Ox 100% on 90% FiO2 ETT vent; petersen 06:22 Body Mass Index 29.84 (99.79 kg, 182.88 cm) bb Norco Coma Score: 06:42 Eye Response: none(1). Verbal Response: none(1). Motor Response: none(1). Total: 3. 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 O2 saturation prior to glove turner and former automatic was 81 %. Intubated orally using # 4 Fadumo blade with 7.5 mm ETT. was successful on first attempt. Ventilated with Ambu bag. Cricoid pressure applied during procedure. Tube secured with ETT rocha at right side of mouth measured 23 cm at gum. Placement verified by CO2 detector with (+) color change, auscultating bilateral breath sounds, O2 saturation after procedure was 96 %. Patient tolerated well. Central Line: the site was prepped with Betadine, in sterile fashion, a triple lumen catheter was inserted, in the right femoral vein, in 1 attempts. placement was verified, by blood return, the site was dressed with Tegaderm, foam tape, using sterile technique, the patient tolerated the procedure, well. MDM: 06:29 Patient medically screened. rn 06:55 ED course: Attempted to contact 2 emergency contacts on paperwork to address code rn status, both emergency contacts were called, no answer. Given patient with GCS 3 and not effectively ventilating, decision made to intubate. Intubated with etomidate/succinylcholine, first pass success, immediately saturation jumped to 96%. Central line placed. Abx ordered, fluids ordered, tylenol ordered. . 07:09 Transition of care: After a detail discussion of the patient's case, care is rn transferred to Fish Cartagena MD. 09:19 Differential diagnosis: bronchitis, pneumonia UTI, gastroenteritis, meningitis. Data ma2 reviewed: vital signs, nurses notes, EMS record, [facility]itentiary records, diagnostic data from outside facility, old medical records, lab test result(s). Counseling: I had a detailed discussion with the patient and/or guardian regarding: the historical points, exam findings, and any diagnostic results supporting the discharge/admit diagnosis, the presence of at least one elevated blood pressure reading (>120/80) during this emergency department visit, lab results, radiology results, the need for further work-up and treatment in the hospital. Response to treatment: the patient's symptoms have markedly improved after treatment. 11/20 06:32 Order name: Basic Metabolic Panel; Complete Time: 07:47 rn 11/20 06:32 Order name: Blood Culture Adult (2) rn 11/20 06:32 Order name: CBC with Diff; Complete Time: 09:21 rn 11/20 06:32 Order name: CPK; Complete Time: 07:48 rn 11/20 06:32 Order name: Ckmb; Complete Time: 07:48 rn 11/20 06:32 Order name: LFT's; Complete Time: 07:48 rn 11/20 06:32 Order name: Lactate; Complete Time: 07:48 rn 11/20 06:32 Order name: Lipase; Complete Time: 07:48 rn 11/20 06:32 Order name: Procalcitonin; Complete Time: 08:58 rn 11/20 06:32 Order name: Protime (+inr); Complete Time: 07:48 rn 11/20 06:32 Order name: Ptt, Activated; Complete Time: 07:48 rn 11/20 06:32 Order name: Troponin HS; Complete Time: 07:48 rn 11/20 06:32 Order name: Urine Culture 11/20 06:32 Order name: Urine Microscopic Only; Complete Time: 21:03 rn 11/20 06:32 Order name: Chest Single View XRAY; Complete Time: 08:58 rn 11/20 06:32 Order name: ABG; Complete Time: 21:03 11/20 07:21 Order name: COVID-19/FLU A+B (Document "Date of Onset" if Symptomatic) 11/20 07:22 Order name: COVID-19/FLU A+B; Complete Time: 08:58 EDIN 11/20 07:47 Order name: CT Head Brain wo Cont; Complete Time: 08:58 ma2 11/20 09:09 Order name: CBC Smear Scan; Complete Time: 09:21 EDIN 11/20 10:39 Order name: Urine Dipstick-Ancillary; Complete Time: 21:03 EDIN 11/20 21:16 Order name: Blood Culture EDIN 11/21 10:04 Order name: Gram Stain--Aerobic Bottle EDIN 11/21 10:04 Order name: Gram Stain--Anaerobic Bottle EDIN 11/21 10:05 Order name: Gram Stain--Aerobic Bottle EDIN 11/21 10:05 Order name: Gram Stain--Anaerobic Bottle EDIN 11/20 06:32 Order name: Accucheck; Complete Time: 10:40 rn 11/20 06:32 Order name: Cardiac monitoring; Complete Time: 06:45 rn 11/20 06:32 Order name: Cath; Complete Time: 07:09 rn 11/20 06:32 Order name: EKG - Nurse/Tech; Complete Time: 07:09 rn 11/20 06:32 Order name: Labs collected and sent; Complete Time: 07:09 rn 11/20 06:32 Order name: O2 Per Protocol; Complete Time: 07:09 rn 11/20 06:32 Order name: O2 Sat Monitoring; Complete Time: 07: rn 11/20 06:32 Order name: Urine Dipstick-Ancillary (obtain specimen); Complete Time: 10:40 rn 11/20 12:51 Order name: Case Management Consult EDMS 11/20 12:51 Order name: NPO EDMS Administered Medications: 06:36 Drug: Etomidate 20 mg Route: IVP; Site: right femoral; as6 08:18 Follow up: Response: No adverse reaction petersen 06:36 Drug: Succinylcholine 120 mg Route: IVP; Site: right forearm; as6 08:18 Follow up: Response: No adverse reaction petersen 06:44 Drug: NS 0.9% (30 ml/kg) 30 ml/kg Route: IV; Rate: bolus; Site: right femoral; tw5 06:49 Drug: Zosyn (piperacillin-tazobactam) 3.375 grams Route: IVPB; Infused Over: 60 mins; tw5 Site: right forearm; 07:00 Drug: Acetaminophen Suppository 650 mg Route: OK; tw5 09:46 Follow up: Response: No adverse reaction petersen 07:00 Drug: Acetaminophen Suppository 325 mg Route: OK; tw5 08:18 Follow up: Response: No adverse reaction petersen 07:08 Drug: Levophed (norepinephrine) (4 mg/250 mL D5W 4 mcg/min Route: IV; Rate: calculated as6 rate; Site: right femoral; 13:48 Follow up: IV Status: Completed infusion petersen 09:44 Drug: NS 0.9% 1000 ml Route: IV; Rate: 1 bolus; Site: Other; ww 13:47 Follow up: IV Status: Completed infusion petersen 13:49 Drug: Ketorolac 30 mg Route: IVP; Site: right femoral; petersen 13:49 Follow up: Response: No adverse reaction petersen 13:50 Drug: Levophed (norepinephrine) (4 mg/250 mL D5W 4 mcg/min Route: IV; Rate: calculated petersen rate; Site: right femoral; Disposition Summary: 11/20/21 09:20 Hospitalization Ordered Hospitalization Status: Inpatient Admission ma2 Provider: Fish Carey Condition: Critical ma2 Problem: new ma2 Symptoms: have improved ma2 Bed/Room Type: Standard [facility] Location: [facility] ER HOLD(11/20/21 17:52) bd Room Assignment: ERHOLD-(11/20/21 17:52) bd Diagnosis - Severe sepsis with septic shock ma2 - Other pneumonia, unspecified organism ma2 - Acute respiratory failure ma2 Forms: - Medication Reconciliation Form ma2 - SBAR form ma2 Critical care time excluding procedures: 09:19 Critical care time: Bedside Care: 35 minutes, Consultation: 20 minutes, Family ma2 Intervention: 10 minutes. Total time: 65 minutes Signatures: Dispatcher [employer] EDMS Nisha Yu Brenda, RN RN bb Nieto, Roman, MD MD rn Alzahri, Mohammad, MD MD ma2 Wood, Tiffany tw5 Rafita Francisco RN RN as6 Jessica Casarez RN RN ww Au-StageSuellen carter RN RN petersen Corrections: (The following items were deleted from the chart) 06:42 06:26 Allergies: Unable to obtain; marjorie amador 06:45 06:32 IV Saline Lock - Large Bore ordered. rn tw5 06:59 06:42 Constitutional: Overweight male, shallow breathing and unresponsive to voice. rn Head/Face: Normocephalic, atraumatic. Eyes: Periorbital areas with no swelling, redness, or edema. ENT: Dry mucous membranes, no stridor Cardiovascular: Tachycardic, regular, no pulse deficits Respiratory: Course bilateral breath sounds with bagging, shallow breathing Abdomen/GI: Soft, nontender Skin: Cool and cyanotic extremities MS/ Extremity: Cyanosis of hands and feet rn 17: 09:20 Intensive Care Unit ma2 bd : 09:20 ma2 bd
--- NOTE | 2021-11-20 09:21 | ER ---
Nurse's Notes [facility] Name: Raphael Hoyos Age: 65 yrs Sex: Male : 1955 Arrival Date: 11/20/2021 Time: 06:22 Bed 1 Private MD: Diagnosis: Severe sepsis with septic shock;Other pneumonia, unspecified organism;Acute respiratory failure Presentation: 11/20 06:22 Chief complaint: EMS states: they were toned out for report of pt found responsive to bb painful stimuli only temp was 105 axillary. Coronavirus screen: Client presents with at least one sign or symptom that may indicate coronavirus-19. Initial Sepsis Screen: Does the patient meet any 2 criteria? RR > 20 per min. Temp <36.0*C (96.8*F)) or > 38.3*C (100.9*F). Altered Mental Status. HR > 90 bpm. Yes Does the patient have a suspected source of infection? Yes: Other: unknown Risk Assessment: Do you want to hurt yourself or someone else? Unable to obtain. Onset of symptoms is unknown. 06:22 Method Of Arrival: EMS: [facility] bb 06:22 Acuity: DANIELA 1 bb 12:34 Ebola Screen: Patient denies travel to an Ebola-affected area in the 21 days before petersen illness onset. Historical: - Allergies: 06:42 No Known Allergies; bb - Immunization history:: Adult Immunizations unknown. - Social history:: Smoking status: unknown. - Family history:: not pertinent. - Hospitalizations: : No recent hospitalization is reported. - History obtained from: EMS. Screenin:10 Abuse screen: patient in poor condition, received from [facility]. tw5 Nutritional screening: unable to assess at this time. . Tuberculosis screening: No symptoms or risk factors identified. Fall Risk Gait- Mental Status-. Sepsis Screening: SIRS - Systemic Inflammatory Response Syndrome: 2 or more indicates positive screen: [temperature greater than or equal to 100.9F or less than or equal to 96.8F] [heart rate greater than 90 beats per minute] [respiratory rate is greater than 20 breaths per minute] Provider has been notified and patient further screened based on infection criteria. Assessment: 07:10 General: Appears ill, unkempt, Behavior is unresponsive. Pain: Unable to use pain tw5 scale. Patient is unresponsive. Neuro: Level of Consciousness is unresponsive. Cardiovascular: Rhythm is SVT. Respiratory: Airway via oral intubation Trachea midline Respiratory effort is Ventilator assessment: ET Tube: 7.5 23 cm at gum line. HOB > 30 degrees. : Wang in place. Derm:. 07:10 Derm: Decubitus located on sacrum approximately 7.6 cm to 20 cm is stage III. tw5 08:19 Reassessment: No changes from previously documented assessment. petersen 11:28 Reassessment: Dr. Carey at bedside with paul Mckay ([phone]) and has decided to ww withdrawal care this afternoon after getting in touch with family. . 15:37 Reassessment:. petersen Vital Signs: 06:22 BP 128 / 78; Pulse 152; Resp 24 S; Temp 100.8(A); Pulse Ox 87% on Non-rebreather mask; bb Weight 99.79 kg (R); Height 6 ft. 0 in. (182.88 cm) (R); 07:10 BP 116 / 81; Pulse 128; Resp 26; Temp 104.9; Pulse Ox 100% on ETT vent; tw5 07:10 BP 111 / 88; Pulse 128; Resp 16; Pulse Ox 99% on 80% FiO2 ETT vent; petersen 07:20 BP 104 / 76; Pulse 122; Resp 16; Pulse Ox 95% on 80% FiO2 ETT vent; petersen 07:30 BP 102 / 76; Pulse 127; Resp 16; Pulse Ox 97% on 80% FiO2 ETT vent; petersen 07:30 BP 074 / 0; Pulse 123; Resp 16; Pulse Ox 98% on 80% FiO2 ETT vent; petersen 07:50 BP 83 / 46; Pulse 120; Resp 16; Pulse Ox 96% on ETT vent; petersen 08:12 BP 83 / 48; Pulse 120; Resp 16; Pulse Ox 95% on 100% FiO2 ETT vent; petersen 08:25 BP 88 / 57; Pulse 118; Resp 16; Pulse Ox 100% on 100% FiO2 ETT vent; petersen 09:24 BP 88 / 63; Pulse 127; Resp 16; Pulse Ox 100% on 100% FiO2 ETT vent; petersen 10:30 BP 77 / 61; Pulse 131; Resp 14; Pulse Ox 99% on 90% FiO2 ETT vent; petersen 11:08 BP 90 / 65; Pulse 129; Resp 14; Pulse Ox 99% on 90% FiO2 ETT vent; petersen 11:29 BP 86 / 70; Pulse 125; Resp 21; Temp 104.1(C); Pulse Ox 100% on 90% FiO2 ETT vent; ww 12:33 BP 86 / 59; Pulse 121; Resp 14; Pulse Ox 100% on 90% FiO2 ETT vent; petersen 13:51 BP 87 / 66; Pulse 129; Resp 14; Pulse Ox 100% on 90% FiO2 ETT vent; petersen 06:22 Body Mass Index 29.84 (99.79 kg, 182.88 cm) bb Mario Coma Score: 06:42 Eye Response: none(1). Verbal Response: none(1). Motor Response: none(1). Total: 3. 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 Set up central line tray. Triple lumen as6 line placed in right femoral. Line placed by Ector Douglas MD Placement verified by CXR, blood return, Dressed with Tegaderm, Blood was collected. Patient tolerated well. Was handwashing/sanitizing done immediately prior to procedure? Was patient positioned to in a way to prevent air embolism? Yes. Was the site allowed to dry? Yes. During the procedure, did the Practitioner(s) maintain a sterile field? Yes. Were unused ports clamped during insertion? Yes. 06:22 Patient arrived in ED. mw2 06:26 Triage completed. bb 06:26 Arm band placed on Patient placed in an exam room, on a stretcher, on oxygen, on bb pvc monitor, on pulse oximetry. 06:29 Ector Douglas MD is Attending Physician. rn 06:34 Wang cath inserted, using sterile technique, 16 Fr., balloon inflated, to gravity as6 drainage. 06:37 Assisted provider with intubation using 7.5 mm ETT via oral route. ET tube secured at as6 gums. Set up intubation tray. Intubated by Ector Douglas MD Placement verified by auscultating bilateral breath sounds, End-tidal CO2 montioring CXR, Patient tolerated well. 06:44 Lulú Casarez is Primary Nurse. tw5 07:04 Chest Single View XRAY In Process Unspecified. EDMS 07:09 Basic Metabolic Panel Sent. tw5 07:09 CBC with Diff Sent. tw5 07:10 Patient has correct armband on for positive identification. Placed in gown. Side rails tw5 up X2. bus monitor on. Pulse ox on. NIBP on. Cleaned of incontinence. Linen changed. 07:10 CPK Sent. tw5 07:10 Ckmb Sent. tw 07:10 LFT's Sent. tw5 07:10 Lipase Sent. tw5 07:10 Procalcitonin Sent. tw5 07:10 Protime (+inr) Sent. tw 07:10 Ptt, Activated Sent. tw5 07:10 Troponin HS Sent. tw5 07:20 Placed in gown. Bed in low position. Call light in reach. Side rails up X2. Cardiac as6 monitor on. Pulse ox on. NIBP on. 07:21 Attending Physician role handed off by Ector Douglas MD ma2 07:21 Fish Cartagena MD is Attending Physician. ma2 07:39 COVID-19/FLU A+B (Document "Date of Onset" if Symptomatic) Sent. ww 08:16 CT Head Brain wo Cont In Process Unspecified. EDMS 09:20 Fish Carey MD is Hospitalizing Provider. ma2 19:28 Primary Nurse role handed off by Lulú Casarez mw2 Administered Medications: 06:36 Drug: Etomidate 20 mg Route: IVP; Site: right femoral; as6 08:18 Follow up: Response: No adverse reaction petersen 06:36 Drug: Succinylcholine 120 mg Route: IVP; Site: right forearm; as6 08:18 Follow up: Response: No adverse reaction petersen 06:44 Drug: NS 0.9% (30 ml/kg) 30 ml/kg Route: IV; Rate: bolus; Site: right femoral; tw5 06:49 Drug: Zosyn (piperacillin-tazobactam) 3.375 grams Route: IVPB; Infused Over: 60 mins; tw5 Site: right forearm; 07:00 Drug: Acetaminophen Suppository 650 mg Route: HI; tw5 09:46 Follow up: Response: No adverse reaction petersen 07:00 Drug: Acetaminophen Suppository 325 mg Route: HI; tw5 08:18 Follow up: Response: No adverse reaction petersen 07:08 Drug: Levophed (norepinephrine) (4 mg/250 mL D5W 4 mcg/min Route: IV; Rate: calculated as6 rate; Site: right femoral; 13:48 Follow up: IV Status: Completed infusion petersen 09:44 Drug: NS 0.9% 1000 ml Route: IV; Rate: 1 bolus; Site: Other; 13:47 Follow up: IV Status: Completed infusion petersen 13:49 Drug: Ketorolac 30 mg Route: IVP; Site: right femoral; petersen 13:49 Follow up: Response: No adverse reaction petersen 13:50 Drug: Levophed (norepinephrine) (4 mg/250 mL D5W 4 mcg/min Route: IV; Rate: calculated petersen rate; Site: right femoral; Outcome: 09:20 Decision to Hospitalize by Provider. [facility] 11/21 15:12 Patient left the ED. ss Signatures: Dispatcher [employer] EDLynn Minor RN RN bb Nieto, Roman, MD MD rn Smirch, Shelby, RN RN Fish Cartagena MD MD me2 Latasha Powers 2 Lulú Casarez 5 Rafita Francisco RN RN as6 Jessica Casarez RN RN Suellen Solano RN RN petersen Corrections: (The following items were deleted from the chart) 11/20 06:42 06:26 Allergies: Unable to obtain; marjorie amador 06:44 06:22 BP 128 / 78; Pulse 152bpm; Pulse Ox 87% Non-rebreather mask; marjorie amador
[2021-11-20] MEDS ORDERED: MIDAZOLAM HCL 100 MG in NA CHLORIDE 0.9% 80 ML IV SCH (10:00)
[2021-11-20 10:39] LABS: Urine Blood 3+ (Negative); Urine Glucose Negative (Negative); Urine Protein 2+ (Negative); Urine Specific Gravity 1.025 (1.005-1.030); Urine pH 5.5 (5.0-7.0)
[2021-11-20 11:13] LABS: Urine Bacteria >50 /HPF (NONE SEEN); Urine RBC >50 /HPF (NONE SEEN); Urine White Blood Cell Casts 0-5 /LPF (NONE SEEN)
[2021-11-20] MEDS ORDERED: ACETAMINOPHEN 500 MG TAB PO PRN (12:48)
[2021-11-20] MEDS ORDERED: propofoL 500 MG/50 ML ML IV PRN (12:51)
[2021-11-20] MEDS ORDERED: NOREPINEPHRINE 4 MG in D5W 250 ML IV SCH (13:00)
[2021-11-20] MEDS ORDERED: NA CHLORIDE 0.9% 1,000 ML IV SCH (13:00)
[2021-11-20] MEDS ORDERED: KETOROLAC 30 MG/ML INJ ONE (13:47)
[2021-11-20 14:17] VITALS: BMI 4784.3
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
[2021-11-20] MEDS ORDERED: LORazepam 2 MG/ML VIAL IV PRN (20:33)
[2021-11-20] MEDS ORDERED: MORPHINE 2 MG/ML SYR ONE ×2 (20:40→21:33)
[2021-11-20] MEDS: MORPHINE 2 MG/ML SYR IV PRN ×2 (20:45→21:35)
[2021-11-20] MEDS ORDERED: CEFTRIAXONE 1,000 MG in NA CHLORIDE 0.9% 50 ML IVPB SCH (21:00)
[2021-11-20 23:08] VITALS: BP 62/47; TEMP 102
[2021-11-21 15:35] VITALS: O2SAT 100
--- NOTE | 2021-11-25 03:27 | P.DS ---
Discharge Date: 11/20/21 Disposition: Discharge Condition: Reason for Admission: Cardiopulmonary arrest - Problems (1) Cardiopulmonary arrest Status: Acute (2) Acute CVA (cerebrovascular accident) Onset Date: 02/22/18 Status: Acute (3) HTN (hypertension) Status: Chronic Qualifiers: Hypertension type: primary hypertension Qualified Code(s): I10 - Essential (primary) hypertension Brief History of Present Illness: Patient is a 65-year-old gentleman who came to the hospital after a cardiopulmonary arrest. Patient has a do not attempt resuscitation and patient has been under hospice care. They were not able to get a hold of the family and they sent the patient to the hospital. Patient was intubated when patient arrived to our emergency room when they were unable to talk to the family. Family arrived afterwards and they stated that patient has do not attempt resuscitation and patient wants to withdraw care. Hospital Course: Patient's family decided to withdraw care. A bed hospice was notified. Patient on the evening of November 20, 2021. Home Medications: Aspirin [Low Dose Aspirin EC] 81 mg PO DAILY 09/13/20 Divalproex ER [Depakote *ER] 250 mg PO DAILY 09/13/20 Docusate [Colace Cap*] 100 mg PO DAILY 09/13/20 Melatonin 5 mg PO BEDTIME 09/13/20 Nifedipine Xl [Procardia XL*] 60 mg PO DAILY 09/13/20 traMADol HCL [Ultram*] 50 mg PO TID 09/13/20 Acetaminophen [Tylenol] 650 mg PO Q6HP PRN 09/22/20 Atorvastatin Calcium [Lipitor*] 40 mg PO BEDTIME 09/22/20 Divalproex ER [Depakote *ER] 500 mg PO BEDTIME 09/22/20 Omeprazole 10 mg PO DAILY 09/22/20 Oxybutynin Chloride [Ditropan*] 5 mg PO TID 09/22/20 Hydralazine [Apresoline*] 25 mg PO BID 12/15/20 Magnesium Chloride 2 tab PO DAILY 30 Days #60 tab 12/15/20 Metoprolol Tartrate [Lopressor*] 50 mg PO BID 12/15/20 Calcium Carbonate [Tums Regular*] 1,000 mg PO TIDP PRN #0 tab 12/20/20 Loperamide [Imodium*] 2 mg PO Q8H PRN cap 12/20/20 Calcium Carbonate/Vitamin D3 [Calcium 600-Vit D3 400 Tablet] 1 each PO DAILY 07/27/21 Ferrous Sulfate [Ferrous Sulfate*] 325 mg PO DAILY 07/27/21 Finasteride [Proscar] 5 mg PO DAILY 07/27/21 Sertraline [Zoloft*] 50 mg PO DAILY 07/27/21 Tamsulosin HCl [Flomax] 0.4 mg PO DAILY 07/27/21 Menthol/Camphor [Biofreeze with Ilex Gel] 120 gm TP Q12H 09/28/21 Physician Discharge Instructions: Body was discharged to the home Followup: NONE,NONE [Primary Care Provider] - Time spent managing pt's care (in minutes): 35
== END 2021-11-21 15:15 | disposition expired | DRG 871 ==
LOC: ER 06:20 → ERHOLD 12:49
PROVIDERS: ADMIT Hospitalist; ATTEND Hospitalist
PROC: 0BH17EZ Insertion of Endotracheal Airway into Trachea, Via Natural or Artificial Opening (ICD-10-PCS; principal; 2021-11-20)
PROC: 5A1935Z Respiratory Ventilation, Less than 24 Consecutive Hours (ICD-10-PCS; 2021-11-20)
PROC: 06HY33Z Insertion of Infusion Device into Lower Vein, Percutaneous Approach (ICD-10-PCS; 2021-11-20)
DX: A41.9 Sepsis, unspecified organism (principal); L89.154 Pressure ulcer of sacral region, stage 4; J18.9 Pneumonia, unspecified organism; J69.0 Pneumonitis due to inhalation of food and vomit; R65.21 Severe sepsis with septic shock; J96.00 Acute respiratory failure, unspecified whether with hypoxia or hypercapnia; G93.41 Metabolic encephalopathy; N30.90 Cystitis, unspecified without hematuria; B96.20 Unspecified Escherichia coli [E. coli] as the cause of diseases classified elsewhere; I10 Essential (primary) hypertension; I46.9 Cardiac arrest, cause unspecified; F03.90 Unspecified dementia, unspecified severity, without behavioral disturbance, psychotic disturbance, mood disturbance, and anxiety; Z66 Do not resuscitate; Z86.73 Personal history of transient ischemic attack (TIA), and cerebral infarction without residual deficits; I25.2 Old myocardial infarction; Z20.822 Contact with and (suspected) exposure to COVID-19
CPT/HCPCS: 0240U; 31500; 36415; 51702; 70450; 71045; 80048; 80076; 81003; 81015; 82550; 82553; 82805; 83605; 83690; 84145; 84484; 85025; 85610; 85730; 87040; 87077; 87086; 87088; 87186; 87205; 93005; 94002; 99291; 99292; J0330; J2250; J2270; J2543; J2704; J7030